=== PATIENT | female | born 1980 | race Caucasian/White ===

== ENCOUNTER 2016-08-09 14:57 | Emergency (ER) | payer MEDICARE ==
[2016-08-09 15:27] LABS: Basophils % (Auto) 0.1 % (0.0-1.8); Hematocrit 44.9 % (30.3-42.9); Hemoglobin 14.5 gm/dl (10.1-14.3); Mean Corpuscular HGB Conc 32 % (30-34); Mean Corpuscular Hemoglobin 30 pg (28-32); Mean Corpuscular Volume 92 fl (79-97); Platelet Count 226 K/mm3 (140-440); Red Cell Distribution Width 16.6 % (13.2-15.2); White Blood Count 7.5 K/mm3 (4.5-11.0)
[2016-08-09 15:49] LABS: Alanine Aminotransferase 51 units/L (7-56); Albumin 4.2 g/dL (3.9-5); Albumin/Globulin Ratio 1.3 %; Alkaline Phosphatase 94 units/L (35-129); Anion Gap 18 mmol/L; Blood Urea Nitrogen 12 mg/dL (7-17); Calcium 9.1 mg/dL (8.4-10.2); Carbon Dioxide 25 mmol/L (22-30); Chloride 95.1 mmol/L (98-107); Glucose 358 mg/dL (65-100); Lipase 29 units/L (13-60); Potassium 3.8 mmol/L (3.6-5.0); Sodium 134 mmol/L (137-145); Total Protein 7.5 g/dL (6.3-8.2)
[2016-08-09 16:21] LABS: Bilirubin,Urine NEG (Negative); Blood,Urine MOD (Negative); Ketones,Urine NEG (Negative); Leukocyte Esterase,Urine TR (Negative); Mucus,Urine FEW /HPF; Nitrite,Urine NEG (Negative); Protein,Urine <15 mg/dL mg/dL (Negative); Urobilinogen,Urine < 2.0 mg/dL (<2.0)
[2016-08-09] MEDS ORDERED: TORADOL IV ONE (21:12)
[2016-08-09] MEDS ORDERED: ZOFRAN IV ONE (21:12)
[2016-08-09] MEDS ORDERED: NACL 0.9% 1000 ML 1,000 ML IV ONE (21:12)
[2016-08-09] MEDS ORDERED: DILAUDID IV ONE (21:12)
--- NOTE | 2016-08-09 21:15 | Emergency Department Report ---
ED General Adult HPI - General Chief complaint: Abdominal Pain Stated complaint: ABD PAIN Time Seen by Provider: 08/09/16 20:56 Source: patient, RN notes reviewed, old records reviewed Mode of arrival: Ambulatory Limitations: No Limitations - History of Present Illness Initial comments: This is a 36-year-old female. She is previously unknown to me. Patient reports a past medical history of HIV. She does not know her CD4 count. She does not know her viral load. She denies a history of AIDS defining conditions. Her HIV doctor is Dr. Pedro Ponce. The patient has a logistics system engineer by the name of Dr. Chan Tillman The patient indicates that she recently had a partial hysterectomy, in March , a bilateral salpingectomy, a right nephrectomy and cystectomy, left partial cystectomy of the ovary. Patient presents to the ER complaining of abdominal pain. Also admit to intermittent dysuria. Patient missed to mild nausea. No vomiting. No chest pain or shortness of breath. No diarrhea. No vaginal discharge. Abdominal pain is sharp and achy. It has been present intermittently since her surgery. It has gotten worse. Patient was found to be tender in her lower abdominal region. Patient had a CT scan performed today, which demonstrated no focal bowel abnormalities, a normal-appearing appendix, a normal-appearing left adnexa, and an elongated fluid distended tubular structure noted on the right which appears to represent a hydrosalpinx as well as additional cystic change seen adjacent to the fallopian tube, suggesting either ovarian cyst or paraovarian cyst. Neither of these findings were noted on a prior CT scan performed in 2016. Patient also found to have prior cholecystectomy. A transvaginal ultrasound demonstrated no evidence of torsion, a right ovarian in paraovarian lesion is noted again is 7.3 cm, and fluid is noted to be around the right ovary and right adnexa. The case was discussed with her private logistics system engineer, Dr. Tillman. He recommended initiation of doxycycline, pain medication, further instructed me that the patient fell to follow up in his office last month, but stated the patient could follow-up with him at any point in the next week. The patient was observed in the ER for a prolonged. Of time, her tachycardia resolved and she was noted to be tolerating liquid feeds. The patient was counseled to follow up with her outpatient primary care doctor., -: Gradual Location: abdomen, pelvis, genitals Quality: aching Consistency: intermittent Improves with: rest Worsens with: movement Associated Symptoms: denies: confusion, chest pain, cough, diaphoresis, fever/ chills, headaches, loss of appetite, malaise, shortness of breath, syncope, weakness - Related Data Home Medications Medication Instructions Recorded Confirmed Last Taken ALPRAZolam [Xanax] 0.25 mg PO HS 04/13/13 03/08/16 07/10/15 Atorvastatin [Lipitor] 40 mg PO HS 04/13/13 03/08/16 07/10/15 Gabapentin [Gralise] 800 mg PO TID 04/13/13 03/08/16 07/10/15 Lisinopril [Zestril TAB] 10 mg PO DAILY 04/13/13 03/08/16 07/10/15 Insulin Pump/Infus. Set/Meter 1 each MC QDAY 02/16/14 03/08/16 07/07/15 [Accu-Chek Combo System] Citalopram [celeXA] 10 mg PO QDAY 08/10/14 03/08/16 07/10/15 Abacavir/Dolutegravir/Lamivudi 1 each PO DAILY 07/10/15 03/08/16 07/10/15 [Triumeq Tablet] Nortriptyline [Pamelor] 50 mg PO QDAY 07/10/15 03/08/16 07/10/15 Previous Rx's Medication Instructions Recorded Last Taken Type Diclofenac Sodium 75 mg PO BID #30 tablet. 03/08/16 Unknown Rx Doxycycline [Vibramycin] 100 mg PO Q12HR #28 capsule 08/10/16 Unknown Rx Ketorolac [Toradol] 10 mg PO Q6H PRN #20 tablet 08/10/16 Unknown Rx Ondansetron [Zofran Odt] 4 mg PO QID PRN #20 tab.rapdis 08/10/16 Unknown Rx oxyCODONE [Roxicodone] 5 mg PO Q6HR PRN #15 tablet 08/10/16 Unknown Rx Allergies Allergy/AdvReac Type Severity Reaction Status Date / Time iodine Allergy Swelling Verified 03/17/15 23:12 Penicillins Allergy Rash Verified 03/17/15 23:12 seafood Allergy Rash Uncoded 12/12/15 23:12 ED Review of Systems ROS: Stated complaint: ABD PAIN Other details as noted in HPI Constitutional: denies: fever Eyes: denies: vision change ENT: denies: epistaxis Respiratory: denies: cough Cardiovascular: denies: chest pain Gastrointestinal: abdominal pain Genitourinary: dysuria Musculoskeletal: denies: back pain Skin: denies: lesions Neurological: denies: weakness Psychiatric: denies: anxiety ED Past Medical Hx - Past Medical History Previous Medical History?: Yes Hx Hypertension: Yes Hx Diabetes: Yes Hx Psychiatric Treatment: Yes (anxiety depression) Hx HIV: Yes Additional medical history: HIGH CHOLESTEROL. Recurrent ovarian cysts - Surgical History Past Surgical History?: Yes Hx Cholecystectomy: Yes Additional Surgical History: d&c x1, insulin pump placement, Partial hysterectomy - Social History Smoking Status: Current Every Day Smoker Substance Use Type: Prescribed - Medications Home Medications: Home Medications Medication Instructions Recorded Confirmed Last Taken Type ALPRAZolam [Xanax] 0.25 mg PO HS 04/13/13 03/08/16 07/10/15 History Atorvastatin [Lipitor] 40 mg PO HS 04/13/13 03/08/16 07/10/15 History Gabapentin [Gralise] 800 mg PO TID 04/13/13 03/08/16 07/10/15 History Lisinopril [Zestril TAB] 10 mg PO DAILY 04/13/13 03/08/16 07/10/15 History Insulin Pump/Infus. Set/Meter 1 each MC QDAY 02/16/14 03/08/16 07/07/15 History [Accu-Chek Combo System] Citalopram [celeXA] 10 mg PO QDAY 08/10/14 03/08/16 07/10/15 History Abacavir/Dolutegravir/Lamivudi 1 each PO DAILY 07/10/15 03/08/16 07/10/15 History [Triumeq Tablet] Nortriptyline [Pamelor] 50 mg PO QDAY 07/10/15 03/08/16 07/10/15 History Diclofenac Sodium 75 mg PO BID #30 tablet. 03/08/16 Unknown Rx Doxycycline [Vibramycin] 100 mg PO Q12HR #28 capsule 08/10/16 Unknown Rx Ketorolac [Toradol] 10 mg PO Q6H PRN #20 tablet 08/10/16 Unknown Rx Ondansetron [Zofran Odt] 4 mg PO QID PRN #20 tab.rapdis 08/10/16 Unknown Rx oxyCODONE [Roxicodone] 5 mg PO Q6HR PRN #15 tablet 08/10/16 Unknown Rx ED Physical Exam - General Limitations: No Limitations General appearance: alert, in no apparent distress - Head Head exam: Present: atraumatic, normocephalic - Eye Eye exam: Present: normal appearance, EOMI. Absent: nystagmus - ENT ENT exam: Present: normal exam, normal orophraynx, mucous membranes moist, normal external ear exam - Neck Neck exam: Present: normal inspection, full ROM. Absent: tenderness, meningismus - Respiratory Respiratory exam: Present: normal lung sounds bilaterally. Absent: respiratory distress, wheezes, rales, rhonchi, stridor, chest wall tenderness - Cardiovascular Cardiovascular Exam: Present: normal rhythm, tachycardia, normal heart sounds. Absent: systolic murmur, diastolic murmur, rubs, gallop - GI/Abdominal GI/Abdominal exam: Present: soft, tenderness, normal bowel sounds, other (mild lower abdominal tenderness, no rebound, guarding or peritoneal signs). Absent: distended, guarding, rebound, rigid, pulsatile mass - External exam: Present: normal external exam Speculum exam: Present: normal speculum exam Bi-manual exam: Present: normal bi-manual exam, other (escorted by JENNIFER FERRELL) . Absent: cervical motion tendernes, adnexal tenderness, adnexal mass - Extremities Exam Extremities exam: Present: normal inspection, full ROM, normal capillary refill. Absent: tenderness, pedal edema, joint swelling, calf tenderness - Back Exam Back exam: Present: normal inspection, full ROM. Absent: tenderness, CVA tenderness (R), CVA tenderness (L), muscle spasm, paraspinal tenderness, vertebral tenderness - Neurological Exam Neurological exam: Present: alert, oriented X3, normal gait, other (Extraocular movements intact. Tongue midline. No facial droop. Facial sensation intact to light touch in the V1, V2, V3 distribution bilaterally. 5 and 5 strength in 4 extremities.. Sensation is intact to light touch in 4 extremities.). Absent : motor sensory deficit - Psychiatric Psychiatric exam: Present: normal affect, normal mood - Skin Skin exam: Present: warm, dry, intact, normal color. Absent: rash ED Course Vital Signs 08/09/16 08/09/16 08/09/16 15:07 23:09 23:19 Temperature 98.6 F 98 F Pulse Rate 107 H 92 H Respiratory 20 16 16 Rate Blood Pressure 143/88 Blood Pressure 130/79 [Left] O2 Sat by Pulse 100 98 100 Oximetry 08/10/16 00:50 Temperature Pulse Rate 55 L Respiratory 16 Rate Blood Pressure Blood Pressure 113/61 [Left] O2 Sat by Pulse 99 Oximetry ED Medical Decision Making - Lab Data Result diagrams: 08/09/16 15:15 08/09/16 15:15 Vital Signs 08/09/16 08/09/16 08/09/16 15:07 23:09 23:19 Temperature 98.6 F 98 F Pulse Rate 107 H 92 H Respiratory 20 16 16 Rate Blood Pressure 143/88 Blood Pressure 130/79 [Left] O2 Sat by Pulse 100 98 100 Oximetry 08/10/16 08/10/16 00:50 00:55 Temperature Pulse Rate 91 H 57 L Respiratory 16 16 Rate Blood Pressure Blood Pressure 127/76 113/61 [Left] O2 Sat by Pulse 99 99 Oximetry Lab Results 08/09/16 08/09/16 08/09/16 Range/Units 15:10 15:15 15:15 WBC 7.5 (4.5-11.0) K/mm3 RBC 4.90 (3.65-5.03) M/mm3 Hgb 14.5 H (10.1-14.3) gm/dl Hct 44.9 H (30.3-42.9) % MCV 92 (79-97) fl MCH 30 (28-32) pg MCHC 32 (30-34) % RDW 16.6 H (13.2-15.2) % Plt Count 226 (140-440) K/mm3 Lymph % (Auto) 36.5 H (13.4-35.0) % Darke % (Auto) 4.7 (0.0-7.3) % Eos % (Auto) 1.0 (0.0-4.3) % Baso % (Auto) 0.1 (0.0-1.8) % Lymph # 2.7 (1.2-5.4) K/mm3 Darke # 0.4 (0.0-0.8) K/mm3 Eos # 0.1 (0.0-0.4) K/mm3 Baso # 0.0 (0.0-0.1) K/mm3 Seg Neutrophils % 57.7 (40.0-70.0) % Seg Neutrophils # 4.3 (1.8-7.7) K/mm3 Sodium 134 L (137-145) mmol/L Potassium 3.8 (3.6-5.0) mmol/L Chloride 95.1 L (98-107) mmol/L Carbon Dioxide 25 (22-30) mmol/L Anion Gap 18 mmol/L BUN 12 (7-17) mg/dL Creatinine 0.6 L (0.7-1.2) mg/dL Estimated GFR > 60 ml/min BUN/Creatinine Ratio 20.00 % Glucose 358 H (65-100) mg/dL POC Glucose 326 H (70-105) Calcium 9.1 (8.4-10.2) mg/dL Total Bilirubin 0.30 (0.1-1.2) mg/dL AST 31 (5-40) units/L ALT 51 (7-56) units/L Alkaline Phosphatase 94 (35-129) units/L Total Protein 7.5 (6.3-8.2) g/dL Albumin 4.2 (3.9-5) g/dL Albumin/Globulin Ratio 1.3 % Lipase 29 (13-60) units/L Urine Color (Yellow) Urine Turbidity (Clear) Urine pH (5.0-7.0) Ur Specific [place] (1.003-1.030) Urine Protein (Negative) mg/dL Urine Glucose (UA) (Negative) mg/dL Urine Ketones (Negative) mg/dL Urine Blood (Negative) Urine Nitrite (Negative) Urine Bilirubin (Negative) Urine Urobilinogen (<2.0) mg/dL Ur Leukocyte Esterase (Negative) Urine WBC (Auto) (0.0-6.0) /HPF Urine RBC (Auto) (0.0-6.0) /HPF U Epithel Cells (Auto) (0-13.0) /HPF Urine Mucus /HPF 08/09/16 Range/Units 15:46 WBC (4.5-11.0) K/mm3 RBC (3.65-5.03) M/mm3 Hgb (10.1-14.3) gm/dl Hct (30.3-42.9) % MCV (79-97) fl MCH (28-32) pg MCHC (30-34) % RDW (13.2-15.2) % Plt Count (140-440) K/mm3 Lymph % (Auto) (13.4-35.0) % Darke % (Auto) (0.0-7.3) % Eos % (Auto) (0.0-4.3) % Baso % (Auto) (0.0-1.8) % Lymph # (1.2-5.4) K/mm3 Darke # (0.0-0.8) K/mm3 Eos # (0.0-0.4) K/mm3 Baso # (0.0-0.1) K/mm3 Seg Neutrophils % (40.0-70.0) % Seg Neutrophils # (1.8-7.7) K/mm3 Sodium (137-145) mmol/L Potassium (3.6-5.0) mmol/L Chloride (98-107) mmol/L Carbon Dioxide (22-30) mmol/L Anion Gap mmol/L BUN (7-17) mg/dL Creatinine (0.7-1.2) mg/dL Estimated GFR ml/min BUN/Creatinine Ratio % Glucose (65-100) mg/dL POC Glucose (70-105) Calcium (8.4-10.2) mg/dL Total Bilirubin (0.1-1.2) mg/dL AST (5-40) units/L ALT (7-56) units/L Alkaline Phosphatase (35-129) units/L Total Protein (6.3-8.2) g/dL Albumin (3.9-5) g/dL Albumin/Globulin Ratio % Lipase (13-60) units/L Urine Color Yellow (Yellow) Urine Turbidity Clear (Clear) Urine pH 5.0 (5.0-7.0) Ur Specific [place] 1.034 H (1.003-1.030) Urine Protein <15 mg/dl (Negative) mg/dL Urine Glucose (UA) 150 (Negative) mg/dL Urine Ketones Neg (Negative) mg/dL Urine Blood Mod (Negative) Urine Nitrite Neg (Negative) Urine Bilirubin Neg (Negative) Urine Urobilinogen < 2.0 (<2.0) mg/dL Ur Leukocyte Esterase Tr (Negative) Urine WBC (Auto) 39.0 H (0.0-6.0) /HPF Urine RBC (Auto) 5.0 (0.0-6.0) /HPF U Epithel Cells (Auto) 5.0 (0-13.0) /HPF Urine Mucus Few /HPF - Radiology Data Radiology results: report reviewed, image reviewed Critical care attestation.: If time is entered above; I have spent that time in minutes in the direct care of this critically ill patient, excluding procedure time. ED Disposition Clinical Impression: Pelvic pain, Ovarian cyst Disposition: DISCHARGED TO HOME OR SELFCARE Is pt being admited?: No Does the pt Need Aspirin: No Condition: Good Instructions: Abdominal Pain (ED) Additional Instructions: Cultures were sent today, results will be available in the next 3-5 days. Please have your primary care doctor or logistics system engineer specialist contact the medical records department to obtain culture results. CT scan and pelvic ultrasound demonstrated nonspecific ovarian cyst, possible fluid in the right fallopian tube. Take the pain medication, nausea medication, antibiotics as directed. Follow-up with your primary care ASSOCIATE PROFESSOR OF CHEMISTRY doctor within the next week. Return to the ER right away with new pain, worsened pain, migration of pain, fevers or chills, intractable nausea or vomiting, inability to tolerate liquid feeds. Not following up in a timely fashion with her ASSOCIATE PROFESSOR OF CHEMISTRY doctor may resultant undiagnosed tumor/cancer/malignancy. Layne Valdivia MD 5.0 1 [employer] review Doctor in [place], [place] Address: [address] [place] [address] [address], [place] [address] [address] [facility] [address] [place] [address] Get Directions Referrals: JENARO SARMIENTO MD [Primary Care Provider] - 3-5 Days
[2016-08-09] MEDS ORDERED: BENADRYL ONE (22:36)
--- NOTE | 2016-08-09 23:04 | Ultrasound Report ---
FINAL REPORT EXAM: US TRANSVAGINAL HISTORY: abd pain ? cyst vs torsion COMPARISONS: Ultrasound 07/10/2015, CT 07/10/2015 FINDINGS: Transvaginal grayscale, color and spectral Doppler ultrasound evaluation of the pelvis Uterus is anteverted and measures 10 x 3.5 x 5 cm. Myometrial echotexture is within normal limits. Endometrial thickness is approximately 7 millimeters. There is fluid surrounding the region of the right ovary/right adnexa. The right ovary measures approximately 3 x 3.5 x 2.5 cm. Fluid surrounds the right ovary, with overall bulk dimension including the right ovary 7.3 x 6.2 x 6.2 cm. Spectral Doppler waveforms are within normal limits in both ovaries. The left ovary measures 2.1 x 1.8 x 1.8 cm and demonstrates normal echotexture. IMPRESSION: There is enlargement of the right ovary compared to the left. Fluid surrounds the right ovary/right adnexa. Short interval follow-up in 6-10 weeks is suggested. No specific finding of ovarian torsion. Spectral Doppler waveforms are within normal limits.
--- NOTE | 2016-08-09 23:07 | Ultrasound Report ---
FINAL REPORT EXAM: US PELVIS DUPLEX DOPPLER COMP HISTORY: abd pain ? cyst vs torsion COMPARISONS: None. FINDINGS: Transabdominal grayscale and color Doppler ultrasound evaluation of the pelvis The uterus is anteverted and measures 10 x 3.5 x 5 cm. Normal uterine echotexture. Endometrium is homogeneous and measures up to 7 millimeters in thickness. A cystic lesion is present within or immediately adjacent to the right adnexa. The right ovary measures 7.3 x 6 x 6.2 cm. The left ovary measures 2.1 x 1.8 x 1.8 cm and demonstrates normal echotexture. IMPRESSION: Right ovarian/paraovarian cystic lesion measures up to 7.3 cm. Short interval sonographic follow-up recommended.
--- NOTE | 2016-08-09 23:25 | Cat Scan Report ---
FINAL REPORT PROCEDURE: CT ABDOMEN PELVIS W CON TECHNIQUE: Computerized axial tomography of the abdomen and pelvis was performed after the IV injection of iodinated nonionic contrast. HISTORY: abd pain COMPARISON: Prior CT scan abdomen and pelvis 07/10/2015 FINDINGS: Lower Lung rodríguez: No abnormality is seen. Upper Abdomen: Gallbladder is surgically absent. The liver is unremarkable. The spleen is mildly enlarged measuring 13.7 centimeters. No adrenal abnormalities are visualized. The pancreas is unremarkable. Kidneys, Ureters and Urinary bladder: There is a 2 centimeter low-density nodule in the renal cortex of the right kidney posteriorly which appears to represent a renal cortical cyst. There is additional sub centimeter low-density nodule in the lower 3rd of the right kidney and 1 in the upper 3rd of the left kidney. These are too small to characterize although they appear to represent small cyst. The kidneys, the ureters and urinary bladder otherwise are unremarkable. Retroperitoneum: Abdominal aorta appears normal. No aneurysm is seen. Nonspecific subcentimeter lymph nodes are seen in the retroperitoneum. No pathologically enlarged lymph nodes are identified. Bowel: No focal bowel abnormalities are identified. No evidence of bowel obstruction or ascites. There is no free intraperitoneal gas. Normal-appearing appendix is seen in the right lower quadrant. Reproductive organs: Uterus is unremarkable. Left adnexa shows no focal abnormality. There is an elongated fluid distended tubular structure visualized on the right which appears to represent hydrosalpinx as well as additional cystic change seen adjacent to the fallopian tube suggesting either an ovarian cyst or paraovarian cyst. Both of these findings were not visualized on the prior CT scan performed 07/10/2015.. Other: None IMPRESSION: Interval development of hydrosalpinx since prior CT scan abdomen and pelvis performed on 07/10/2015. And cystic abnormality in right adnexa. Interior Design Project Manager consultation is recommended. Prior cholecystectomy. Renal cortical cysts are suspected as described. Mild splenomegaly.
[2016-08-10] MEDS ORDERED: MORPHINE IV ONE (00:10)
[2016-08-10] MEDS ORDERED: BENADRYL IV ONE (00:14)
[2016-08-10] MEDS ORDERED: VIBRAMYCIN PO ONE (00:36)
[2016-08-10 01:27] VITALS: BP 127/76
== END 2016-08-10 01:34 | disposition home or self-care (01) ==
LOC: ED 14:57
DX: N83.209 Unspecified ovarian cyst, unspecified side (principal); I10 Essential (primary) hypertension; E11.9 Type 2 diabetes mellitus without complications; F32.9 Major depressive disorder, single episode, unspecified; F41.9 Anxiety disorder, unspecified; E78.00 Pure hypercholesterolemia, unspecified; F17.200 Nicotine dependence, unspecified, uncomplicated; Z90.711 Acquired absence of uterus with remaining cervical stump; Z90.49 Acquired absence of other specified parts of digestive tract; Z79.4 Long term (current) use of insulin; Z88.0 Allergy status to penicillin; Z91.013 Allergy to seafood
CPT/HCPCS: 36415; 74177; 76830; 80053; 81001; 82962; 83690; 85025; 87210; 87591; 93975; 96361; 96374; 96375; 99285; J1170; J1200; J1885; J2270; J2405; J7030; Q9967

== ENCOUNTER 2016-10-12 09:22 | Emergency (ER) | payer MEDICARE ==
[2016-10-12 10:26] LABS: Alanine Aminotransferase 24 units/L (7-56); Albumin 3.6 g/dL (3.9-5); Albumin/Globulin Ratio 0.9 %; Alkaline Phosphatase 106 units/L (35-129); Anion Gap 18 mmol/L; BUN/Creatinine Ratio 11.42; Blood Urea Nitrogen 8 mg/dL (7-17); Calcium 8.9 mg/dL (8.4-10.2); Carbon Dioxide 26 mmol/L (22-30); Chloride 96.8 mmol/L (98-107); Lipase 33 units/L (13-60); Potassium 4.3 mmol/L (3.6-5.0); Sodium 136 mmol/L (137-145); Total Protein 7.7 g/dL (6.3-8.2)
[2016-10-12 10:30] LABS: Basophils % (Auto) 0.1 % (0.0-1.8); Eosinophils % (Auto) 2.3 % (0.0-4.3); Hematocrit 36.4 % (30.3-42.9); Mean Corpuscular HGB Conc 33 % (30-34); Mean Corpuscular Hemoglobin 31 pg (28-32); Mean Corpuscular Volume 93 fl (79-97); Platelet Count 345 K/mm3 (140-440); Red Blood Count 3.93 M/mm3 (3.65-5.03); Red Cell Distribution Width 14.4 % (13.2-15.2); White Blood Count 8.8 K/mm3 (4.5-11.0)
[2016-10-12 10:34] LABS: Glucose 523 mg/dL (65-100)
[2016-10-12 10:44] LABS: Bilirubin,Urine NEG (Negative); Blood,Urine SM (Negative); Ketones,Urine NEG (Negative); Leukocyte Esterase,Urine MOD (Negative); Mucus,Urine FEW /HPF; Nitrite,Urine NEG (Negative); Protein,Urine <15 mg/dL mg/dL (Negative); Urobilinogen,Urine < 2.0 mg/dL (<2.0)
[2016-10-12] MEDS ORDERED: NACL 0.9% 1000 ML 1,000 ML IV ONE (14:21)
[2016-10-12] MEDS ORDERED: DILAUDID IV ONE (14:21)
[2016-10-12] MEDS ORDERED: ROCEPHIN/NS 1 GM/50 ML 1 GM/50 ML BAG IV ONE (14:22)
[2016-10-12] MEDS ORDERED: CLEOCIN 900 MG/50 mL 900 MG/50 ML BAG IV ONE (14:22)
[2016-10-12] MEDS ORDERED: NACL ONE (14:46)
--- NOTE | 2016-10-12 15:06 | Emergency Department Report ---
ED Abdominal Pain HPI - General Chief Complaint: Abdominal Pain Stated Complaint: ABD PAIN Time Seen by Provider: 10/12/16 14:01 Source: patient Mode of arrival: Ambulatory Limitations: No Limitations - History of Present Illness Initial Comments: 36-year-old female with a past medical history of insulin dependent diabetes, HIV, hypertension, elevated cholesterol, anxiety, and depression presents to the hospital complains of postoperative abdominal pain and malodorous discharge. Patient had a total hysterectomy 09/26/[address] Melendez at [facility] for ovarian mass suspicious for cancer. For the past 2 weeks patient has had malodorous bloody vaginal discharge. Patient also complains of lower abdominal pain 1 week. Pain is sharp, constant, worse with palpation rated 10/10 intensity. No alleviating factors. Patient is not currently on any pain medications. She just followed up on October 06 to have her matilda removed. She reported her complaints to the nurse practitioner at the time. She was told at the clinic did not prescribe narcotic pain medication. Patient is not currently on antibiotics. Patient also expresses concern that there is a hole with yellow bloody drainage at the upper part of her surgical wound. Patient presented here because she does not have a car/ride to go to the hospital where her doctor is affiliated. Patient presents with elevated glucose and states that she has discontinued her insulin pump since receiving surgery and now she says self a subcutaneous insulin doses. Severity scale (0 -10): 10 - Related Data Home Medications Medication Instructions Recorded Confirmed Last Taken ALPRAZolam [Xanax] 0.25 mg PO HS 04/13/13 03/08/16 07/10/15 Atorvastatin [Lipitor] 40 mg PO HS 04/13/13 03/08/16 07/10/15 Gabapentin [Gralise] 800 mg PO TID 04/13/13 03/08/16 07/10/15 Lisinopril [Zestril TAB] 10 mg PO DAILY 04/13/13 03/08/16 07/10/15 Insulin Pump/Infus. Set/Meter 1 each MC QDAY 02/16/14 03/08/16 07/07/15 [Accu-Chek Combo System] Citalopram [celeXA] 10 mg PO QDAY 08/10/14 03/08/16 07/10/15 Abacavir/Dolutegravir/Lamivudi 1 each PO DAILY 07/10/15 03/08/16 07/10/15 [Triumeq Tablet] Nortriptyline [Pamelor] 50 mg PO QDAY 07/10/15 03/08/16 07/10/15 Previous Rx's Medication Instructions Recorded Last Taken Type Diclofenac Sodium 75 mg PO BID #30 tablet. 03/08/16 Unknown Rx Doxycycline [Vibramycin] 100 mg PO Q12HR #28 capsule 08/10/16 Unknown Rx Ketorolac [Toradol] 10 mg PO Q6H PRN #20 tablet 08/10/16 Unknown Rx Ondansetron [Zofran Odt] 4 mg PO QID PRN #20 tab.rapdis 08/10/16 Unknown Rx oxyCODONE [Roxicodone] 5 mg PO Q6HR PRN #15 tablet 08/10/16 Unknown Rx HYDROcodone/APAP 5-325 [[place] 1 each PO Q6HR PRN #20 tablet 10/12/16 Unknown Rx 5/325] Allergies Allergy/AdvReac Type Severity Reaction Status Date / Time iodine Allergy Swelling Verified 10/12/16 09:40 seafood Allergy Rash Uncoded 10/12/16 09:40 ED Review of Systems ROS: Stated complaint: ABD PAIN Other details as noted in HPI Comment: All other systems reviewed and negative Other: Constitutional: No fevers chills Eyes: No eye pain visual changes or discharge ENT: No ear pain or throat pain Neck: Denies pain Respiratory: Denies cough wheezing shortness of breath Cardiovascular: Denies chest pain, palpitations, syncope GI: as per hpi : Denies dysuria Musculoskeletal: Denies back pain, joint swelling Skin: as per hpi Neurologic: Denies headache, numbness, weakness Psychiatric: Denies suicidal ideation, hallucinations ED Past Medical Hx - Past Medical History Hx Hypertension: Yes Hx Diabetes: Yes Hx Psychiatric Treatment: Yes (anxiety depression) Hx HIV: Yes Additional medical history: HIGH CHOLESTEROL. Recurrent ovarian cysts - Surgical History Hx Cholecystectomy: Yes Additional Surgical History: d&c x1, insulin pump placement, Partial hysterectomy. TOTAL HYSTERECTOMY - Social History Smoking Status: Current Every Day Smoker Substance Use Type: Alcohol - Medications Home Medications: Home Medications Medication Instructions Recorded Confirmed Last Taken Type ALPRAZolam [Xanax] 0.25 mg PO HS 04/13/13 03/08/1616 History Atorvastatin [Lipitor] 40 mg PO HS 04/13/13 03/08/16 07/10/15 History Gabapentin [Gralise] 800 mg PO TID 04/13/13 03/08/16 07/10/15 History Lisinopril [Zestril TAB] 10 mg PO DAILY 04/13/13 03/08/16 07/10/15 History Insulin Pump/Infus. Set/Meter 1 each MC QDAY 02/16/14 03/08/16 07/07/15 History [Accu-Chek Combo System] Citalopram [celeXA] 10 mg PO QDAY 08/10/14 03/08/16 07/10/15 History Abacavir/Dolutegravir/Lamivudi 1 each PO DAILY 07/10/15 03/08/16 07/10/15 History [Triumeq Tablet] Nortriptyline [Pamelor] 50 mg PO QDAY 07/10/15 03/08/16 07/10/15 History Diclofenac Sodium 75 mg PO BID #30 tablet.dr 03/08/16 Unknown Rx Doxycycline [Vibramycin] 100 mg PO Q12HR #28 capsule 08/10/16 Unknown Rx Ketorolac [Toradol] 10 mg PO Q6H PRN #20 tablet 08/10/16 Unknown Rx Ondansetron [Zofran Odt] 4 mg PO QID PRN #20 tab.rapdis 08/10/16 Unknown Rx oxyCODONE [Roxicodone] 5 mg PO Q6HR PRN #15 tablet 08/10/16 Unknown Rx HYDROcodone/APAP 5-325 [[place] 1 each PO Q6HR PRN #20 tablet 10/12/16 Unknown Rx 5/325] ED Physical Exam - General Limitations: No Limitations - Other Other exam information: General: No limitations, patient is alert in no acute distress Head exam: Atraumatic, normocephalic Eyes exam: Normal appearance, pupils equal reactive to light, extraocular movements intact ENT: Moist mucous membrane, normal oropharynx Neck exam: Normal inspection, full range of motion, no meningismus nontender Respiratory exam: Clear to auscultation bilateral, no wheezes, rales, crackles Cardiovascular: Normal rate and rhythm, normal heart sounds Abdomen: Soft, nondistended, midline vertical surgical scar. Some very mild wound separation without complete dehiscence to the superior part of the wound. No active drainage. No surrounding erythema or warmth. Tenderness throughout lower abdomen no rebound or guarding Extremity: Full range of motion normal inspection no deformity Back: Normal Inspection, full range of motion, no tenderness Neurologic: Alert, oriented x3, cranial nerves intact, no motor or sensory deficit Psychiatric: normal affect, normal mood Skin: Warm, dry, intact ED Course Vital Signs 10/12/16 10/12/16 10/12/16 09:42 14:02 14:10 Temperature 98.6 F 99.1 F Pulse Rate 99 H 94 H Respiratory 17 18 18 Rate Blood Pressure 148/90 Blood Pressure 139/72 [Left] O2 Sat by Pulse 100 97 97 Oximetry 10/12/16 10/12/16 10/12/16 14:40 15:10 16:10 Temperature Pulse Rate 97 H Respiratory 18 18 18 Rate Blood Pressure Blood Pressure 156/86 [Left] O2 Sat by Pulse 99 Oximetry 10/12/16 17:35 Temperature Pulse Rate 88 Respiratory 18 Rate Blood Pressure Blood Pressure 138/79 [Left] O2 Sat by Pulse 98 Oximetry - Reevaluation(s) Reevaluation #1: 10/12/16 18:34 Pain initially improved the patient requested additional morphine prior to discharge. Glucose improved with insulin and normal saline. Patient also received clindamycin and Rocephin in the ED. - Consultations Consultation #1: 10/12/16 18:31 Case d/w Dr Darling spinner continuous MD for Dr Melendez. We discussed lab results, urine results, CT scan. Although patient CT does show fluid collections there are certain procedures done during the surgery that may look like an abscess on CT. This patient does not have a fever or elevated white count she does not recommend antibiotics to be continued at this time. Although the urine does have mild wbc elevation patient does not have nitrates or urinary symptoms. She does not recommend antibiotics for UTI is her first wait for culture results. Recommend medications for pain and follow-up in the clinic tomorrow for reassessment by her [facility] doctor. I will include a copy of the CT report and lab findings to take to her doctor tomorrow. ED Medical Decision Making - Lab Data Result diagrams: 10/12/16 09:54 10/12/16 09:54 Lab Results 10/12/16 10/12/16 10/12/16 Range/Units 09:54 09:54 10:10 WBC 8.8 (4.5-11.0) K/mm3 RBC 3.93 (3.65-5.03) M/mm3 Hgb 12.0 (10.1-14.3) gm/dl Hct 36.4 (30.3-42.9) % MCV 93 (79-97) fl MCH 31 (28-32) pg MCHC 33 (30-34) % RDW 14.4 (13.2-15.2) % Plt Count 345 (140-440) K/mm3 Lymph % (Auto) 25.0 (13.4-35.0) % [place] % (Auto) 6.1 (0.0-7.3) % Eos % (Auto) 2.3 (0.0-4.3) % Baso % (Auto) 0.1 (0.0-1.8) % Lymph # 2.2 (1.2-5.4) K/mm3 [place] # 0.5 (0.0-0.8) K/mm3 Eos # 0.2 (0.0-0.4) K/mm3 Baso # 0.0 (0.0-0.1) K/mm3 Seg Neutrophils % 66.5 (40.0-70.0) % Seg Neutrophils # 5.8 (1.8-7.7) K/mm3 Sodium 136 L (137-145) mmol/L Potassium 4.3 (3.6-5.0) mmol/L Chloride 96.8 L (98-107) mmol/L Carbon Dioxide 26 (22-30) mmol/L Anion Gap 18 mmol/L BUN 8 (7-17) mg/dL Creatinine 0.7 (0.7-1.2) mg/dL Estimated GFR > 60 ml/min BUN/Creatinine Ratio 11.42 % Glucose 523 H* (65-100) mg/dL Calcium 8.9 (8.4-10.2) mg/dL Total Bilirubin 0.20 (0.1-1.2) mg/dL AST 19 (5-40) units/L ALT 24 (7-56) units/L Alkaline Phosphatase 106 (35-129) units/L Total Protein 7.7 (6.3-8.2) g/dL Albumin 3.6 L (3.9-5) g/dL Albumin/Globulin Ratio 0.9 % Lipase 33 (13-60) units/L Urine Color Straw (Yellow) Urine Turbidity Clear (Clear) Urine pH 5.0 (5.0-7.0) Ur Specific [place] 1.035 H (1.003-1.030) Urine Protein <15 mg/dl (Negative) mg/dL Urine Glucose (UA) >=500 (Negative) mg/dL Urine Ketones Neg (Negative) mg/dL Urine Blood Sm (Negative) Urine Nitrite Neg (Negative) Urine Bilirubin Neg (Negative) Urine Urobilinogen < 2.0 (<2.0) mg/dL Ur Leukocyte Esterase Mod (Negative) Urine WBC (Auto) 22.0 H (0.0-6.0) /HPF Urine RBC (Auto) 2.0 (0.0-6.0) /HPF U Epithel Cells (Auto) 2.0 (0-13.0) /HPF Urine Mucus Few /HPF - Radiology Data Radiology results: report reviewed CT abdomen and pelvis IV contrast: Status post hysterectomy. Fluid and gas collection seen superior aspect of the vagina suspicious for an abscess. There is adjacent inflammatory changes. Fluid collection seen in the posterior aspect of the middle incision sites site overlying the pelvis suggesting a hematoma, seroma, or abscess. There are also a few bubbles of gas seen in the soft tissues within the incision just below the cutaneous layer which may represent a small developing abscess. - Medical Decision Making Plan to discharge the patient home as per direction of her surgeon. The patient has various fluid collections identified on CT she does not have an elevated white count or fever. Antibiotics are not recommended at this time. Patient be treated with pain medication, given a copy of her reports and encouraged to follow with her surgeon tomorrow. During ED stay patient developed itching after receiving Dilaudid. She was given Benadryl. She was given morphine without allergic reaction. Patient received a second dose of morphine and developed itching once again. No airway symptoms or rash. Patient sugar still in the 300s. Additional insulin ordered. Patient is ready to go home and does not want to wait for glucose reduction. No signs of DKA at this time. - Differential Diagnosis wound dehiscence, wound infection, postop infection, postoperative pain Critical Care Time: No Critical care attestation.: If time is entered above; I have spent that time in minutes in the direct care of this critically ill patient, excluding procedure time. ED Disposition Clinical Impression: S/P hysterectomy with oophorectomy, Post-operative pain, Intra-abdominal fluid collection Disposition: TO HOME OR SELFCARE Is pt being admited?: No Does the pt Need Aspirin: No Condition: Stable Instructions: Abdominal Pain (ED), Wound Dehiscence (ED) Additional Instructions: It is very important that you follow up with your surgeon in the clinic tomorrow. Take a copy of your results and CAT scan provided. Take medication as needed for pain. Return if symptoms worsen prior to follow. Prescriptions: HYDROcodone/APAP 5-325 [[place] 5/325] 1 each PO Q6HR PRN #20 tablet PRN Reason: Pain Referrals: MD Al [Other] - 10/13/16 Time of Disposition: 18:44
[2016-10-12] MEDS ORDERED: BENADRYL IV ONE ×2 (15:25→18:47)
[2016-10-12] MEDS ORDERED: MORPHINE IV ONE ×2 (15:45→18:10)
--- NOTE | 2016-10-12 16:44 | Cat Scan Report ---
FINAL REPORT PROCEDURE: CT ABDOMEN PELVIS W CON TECHNIQUE: Computerized axial tomography of the abdomen and pelvis was performed after the IV injection of iodinated nonionic contrast. HISTORY: pain and malodorous d/c s/p hysterectomy COMPARISON: Prior CT scan abdomen and pelvis 08/09/2016 FINDINGS: Lower Lung rodríguez: Clear. Upper Abdomen: Gallbladder is surgically absent. The intrahepatic ducts are not distended. The liver showed no focal abnormalities. The spleen is mildly enlarged otherwise is unremarkable. The adrenal glands and the pancreas show no abnormalities. Kidneys, Ureters and Urinary bladder: There is a 2.1 centimeter low-density nodule in the renal cortex of the upper 3rd of the right kidney medially. A subcentimeter low-density nodules also seen in the lower 3rd of the renal cortex of the right kidney and 1 in the upper 3rd of the renal cortex of the left kidney. These appear to represent renal cortical cyst. The kidneys, the ureters and urinary bladder otherwise are unremarkable. Retroperitoneum: Abdominal aorta appears normal. No aneurysm is visualized. Nonspecific subcentimeter lymph nodes are seen in the retroperitoneum. No pathologically enlarged lymph nodes are identified. Bowel: No focal bowel abnormalities are identified. No evidence of bowel obstruction ascites or free intraperitoneal gas. Normal-appearing appendix is seen in the right lower quadrant directed medially. There are postsurgical changes in the anterior wall the pelvis in the midline. A prior incision site is visualized. A few bubbles of gas appear to be present in the subcutaneous soft tissues anterior aspect of the incision site on image 128 series 3. This measures approximately 6.7 by 16.2 millimeters. In the mid pelvis there appears to be a small fluid collection in the posterior aspect of the incision extending over approximately 3.1 x 1.5 centimeters seen on image 147 series 3 suggesting a hematoma, seroma or abscess. Reproductive organs: The uterus is surgically absent. Fluid in gas collection is seen in the superior aspect of the vagina best visualized on image 172 series 3 of the axial images and image 89 series 200 of the coronal reconstructions as well as image 112 series 201 of the sagittal reconstructions. An abscess is suspected. This measures approximately 3.5 centimeter transverse, 2.9 centimeter AP and extends craniocaudal approximately 2.3 centimeter. There is inflammatory change in the adjacent mesentery. No free intraperitoneal gas is seen. No abnormal adnexal masses are identified. Other: No acute bony abnormalities are identified. IMPRESSION: Patient is status post hysterectomy. Fluid and gas collection seen superior aspect of the vagina suspicious for a an abscess. There is adjacent inflammatory changes well. Fluid collection is seen posterior aspect of the midline incision site overlying the pelvis as described suggesting a hematoma, seroma or abscess. There are also a few bubbles of gas seen in the soft tissues within the incision just below the cutaneous layer as described which may also reflect a small developing abscess. Patient is status post cholecystectomy. Mild splenomegaly. Small renal cortical cyst suspected as described.
[2016-10-12 17:36] VITALS: BP 138/79
== END 2016-10-12 19:12 | disposition home or self-care (01) ==
LOC: ED 09:22
DX: G89.18 Other acute postprocedural pain (principal); R18.8 Other ascites; I10 Essential (primary) hypertension; E11.9 Type 2 diabetes mellitus without complications; F41.9 Anxiety disorder, unspecified; F32.9 Major depressive disorder, single episode, unspecified; E78.00 Pure hypercholesterolemia, unspecified; F17.200 Nicotine dependence, unspecified, uncomplicated; Z90.710 Acquired absence of both cervix and uterus; Z79.4 Long term (current) use of insulin; Z91.013 Allergy to seafood
CPT/HCPCS: 36415; 74177; 80053; 81001; 82962; 83690; 85025; 87086; 96361; 96365; 96368; 96375; 96376; 99284; J0696; J1170; J1200; J2270; J7030; Q9967; J1815

== ENCOUNTER 2016-12-14 18:43 | Emergency (ER) | payer MEDICARE ==
[2016-12-14] MEDS ORDERED: XYLOCAINE 1%/ EPI 1:100,000 INFILTRATI NR (23:45)
[2016-12-15] MEDS ORDERED: PERCOCET 5/325 PO ONE (00:50)
[2016-12-15] MEDS ORDERED: BACTRIM DS PO ONE (00:51)
--- NOTE | 2016-12-15 01:04 | Emergency Department Report ---
ED General Adult HPI - General Chief complaint: Skin/Abscess/Foreign Body Stated complaint: ABSCESS ON BACK Time Seen by Provider: 12/14/16 23:22 Source: patient Mode of arrival: Ambulatory Limitations: No Limitations - History of Present Illness Initial comments: Patient is a 36-year-old female past medical history of diabetes who presents with back abscess. She has had abscess for the last 4 days. She says the pain is a 10 out of 10 it's a burning achy pain. The pain does not radiate anywhere. Pressure makes it worse nothing makes it better. Patient states that there has been no drainage to her back. She states that she's had abscesses like these before. Patient denies having any fever or any vomiting. Severity scale (0 -10): 7 - Related Data Home Medications Medication Instructions Recorded Confirmed Last Taken ALPRAZolam [Xanax] 0.25 mg PO HS 04/13/13 12/14/16 07/10/15 Atorvastatin [Lipitor] 40 mg PO HS 04/13/13 12/14/16 07/10/15 Gabapentin [Gralise] 800 mg PO TID 04/13/13 12/14/16 07/10/15 Lisinopril [Zestril TAB] 10 mg PO DAILY 04/13/13 12/14/16 07/10/15 Insulin Pump/Infus. Set/Meter 1 each MC QDAY 02/16/14 12/14/16 07/07/15 [Accu-Chek Combo System] Citalopram [celeXA] 10 mg PO QDAY 08/10/14 12/14/16 07/10/15 Abacavir/Dolutegravir/Lamivudi 1 each PO DAILY 07/10/15 12/14/16 07/10/15 [Triumeq Tablet] Nortriptyline [Pamelor] 50 mg PO QDAY 07/10/15 12/14/16 07/10/15 Previous Rx's Medication Instructions Recorded Last Taken Type Acetaminophen [Acetaminophen TAB] 1,000 mg PO Q6HR #30 tablet 12/15/16 Unknown Rx Ibuprofen [Motrin 400 MG tab] 400 mg PO Q8H PRN #20 tablet 12/15/16 Unknown Rx Sulfamethoxazole/Trimethoprim 1 tab PO BID #10 tab 12/15/16 Unknown Rx [Bactrim 400-80 mg] Allergies Allergy/AdvReac Type Severity Reaction Status Date / Time iodine Allergy Swelling Verified 10/12/16 09:40 seafood Allergy Rash Uncoded 10/12/16 09:40 ED Review of Systems ROS: Stated complaint: ABSCESS ON BACK Other details as noted in HPI Constitutional: denies: chills, fever Eyes: denies: eye pain, eye discharge, vision change ENT: denies: ear pain, throat pain Respiratory: denies: cough, shortness of breath, wheezing Cardiovascular: denies: chest pain, palpitations Endocrine: no symptoms reported Gastrointestinal: denies: abdominal pain, nausea, diarrhea Genitourinary: denies: urgency, dysuria, discharge Musculoskeletal: denies: back pain, joint swelling, arthralgia Skin: other (abscess ). denies: rash, lesions Neurological: denies: headache, weakness, paresthesias Psychiatric: denies: anxiety, depression Hematological/Lymphatic: denies: easy bleeding, easy bruising ED Past Medical Hx - Past Medical History Hx Hypertension: Yes Hx Diabetes: Yes Hx Psychiatric Treatment: Yes (anxiety depression) Hx HIV: Yes Additional medical history: HIGH CHOLESTEROL. Recurrent ovarian cysts - Surgical History Hx Cholecystectomy: Yes Additional Surgical History: d&c x1, insulin pump placement, Partial hysterectomy. TOTAL HYSTERECTOMY - Social History Smoking Status: Current Every Day Smoker Substance Use Type: None - Medications Home Medications: Home Medications Medication Instructions Recorded Confirmed Last Taken Type ALPRAZolam [Xanax] 0.25 mg PO HS 04/13/13 12/14/16 07/10/15 History Atorvastatin [Lipitor] 40 mg PO HS 04/13/13 12/14/16 07/10/15 History Gabapentin [Gralise] 800 mg PO TID 04/13/13 12/14/16 07/10/15 History Lisinopril [Zestril TAB] 10 mg PO DAILY 04/13/13 12/14/16 07/10/15 History Insulin Pump/Infus. Set/Meter 1 each MC QDAY 02/16/14 12/14/16 07/07/15 History [Accu-Chek Combo System] Citalopram [celeXA] 10 mg PO QDAY 08/10/14 12/14/16 07/10/15 History Abacavir/Dolutegravir/Lamivudi 1 each PO DAILY 07/10/15 12/14/16 07/10/15 History [Triumeq Tablet] Nortriptyline [Pamelor] 50 mg PO QDAY 07/10/15 12/14/16 07/10/15 History Acetaminophen [Acetaminophen TAB] 1,000 mg PO Q6HR #30 tablet 12/15/16 Unknown Rx Ibuprofen [Motrin 400 MG tab] 400 mg PO Q8H PRN #20 tablet 12/15/16 Unknown Rx Sulfamethoxazole/Trimethoprim 1 tab PO BID #10 tab 12/15/16 Unknown Rx [Bactrim 400-80 mg] ED Physical Exam - General Limitations: No Limitations General appearance: alert, in no apparent distress - Head Head exam: Present: atraumatic, normocephalic - Eye Eye exam: Present: normal appearance - ENT ENT exam: Present: mucous membranes moist - Neck Neck exam: Present: normal inspection - Respiratory Respiratory exam: Present: normal lung sounds bilaterally. Absent: respiratory distress - Cardiovascular Cardiovascular Exam: Present: regular rate, normal rhythm. Absent: systolic murmur, diastolic murmur, rubs, gallop - GI/Abdominal GI/Abdominal exam: Present: soft, normal bowel sounds - Extremities Exam Extremities exam: Present: normal inspection - Back Exam Back exam: Present: other (4x6 cm abscess with fluctuance and erythema ) - Neurological Exam Neurological exam: Present: alert, oriented X3 - Psychiatric Psychiatric exam: Present: normal affect, normal mood - Skin Skin exam: Present: dry, intact, normal color. Absent: rash ED Course Vital Signs 12/14/16 12/14/16 12/14/16 18:50 22:47 22:48 Temperature 98.8 F 98.6 F Pulse Rate 100 H 90 Respiratory 16 20 20 Rate Blood Pressure 152/97 Blood Pressure 130/73 [Left] O2 Sat by Pulse 100 99 99 Oximetry 12/15/16 12/15/16 01:04 01:05 Temperature 98.6 F Pulse Rate 88 Respiratory 20 20 Rate Blood Pressure Blood Pressure 132/78 [Left] O2 Sat by Pulse 100 Oximetry - Reevaluation(s) Reevaluation #1: 12/15/16 01:01 Patient's abscess has been incised and drained. Patient also received oral Percocet and Bactrim. She states that her pain is better. - I & D Back Type of Procedure: Complex (abscess was 4 x 6 cm abscess was probed and deloculated and irrigated with 20 mL of saline.) Site: back Blade Size: 11 I & D Procedure: betadine prep, sterile dressing applied, gauze wick placed (1/ 4 iodine gauze was packed into abscess) Progress: Lidocaine with epinepherine was used to anesthetize the skin. 8 mL of lidocaine was used and opening block around the abscess. Patient tolerated procedure with no complications. About 12 mL of bloody pus came out of the abscess. ED Medical Decision Making - Medical Decision Making Chief medical diagnosis: Abscess Differential medical diagnosis: Cellulitis, folliculitis I will incise and drain the abscess will use lidocaine also give the patient oral Percocet and oral Bactrim. Gave patient return precautions come back to the emergency department and additional verbal discharge instructions were given. Critical care attestation.: If time is entered above; I have spent that time in minutes in the direct care of this critically ill patient, excluding procedure time. ED Disposition Clinical Impression: Abscess of back Cellulitis Qualifiers: Site of cellulitis: trunk Site of cellulitis of trunk: back Qualified Code(s): L03.312 - Cellulitis of back [any part except buttock] Disposition: DC-01 TO HOME OR SELFCARE Is pt being admited?: No Does the pt Need Aspirin: No Condition: Stable Instructions: Abscess Incision and Drainage (ED), Abscess (ED) Prescriptions: Acetaminophen [Acetaminophen TAB] 1,000 mg PO Q6HR #30 tablet Ibuprofen [Motrin 400 MG tab] 400 mg PO Q8H PRN #20 tablet PRN Reason: Pain Sulfamethoxazole/Trimethoprim [Bactrim 400-80 mg] 1 tab PO BID #10 tab Referrals: JENARO SARMIENTO MD [Primary Care Provider] - 3-5 Days
[2016-12-15 01:06] VITALS: BP 132/78
== END 2016-12-15 01:26 | disposition home or self-care (01) ==
LOC: ED 18:43
DX: L02.212 Cutaneous abscess of back [any part, except buttock and flank] (principal); L03.312 Cellulitis of back [any part except buttock and flank]; E11.9 Type 2 diabetes mellitus without complications; I10 Essential (primary) hypertension; F32.9 Major depressive disorder, single episode, unspecified; F41.9 Anxiety disorder, unspecified; F17.200 Nicotine dependence, unspecified, uncomplicated; Z91.013 Allergy to seafood; Z88.8 Allergy status to other drugs, medicaments and biological substances
CPT/HCPCS: 99282

== ENCOUNTER 2017-05-02 19:56 | Emergency (ER) | payer MEDICARE ==
[2017-05-03 00:39] LABS: Hematocrit 42.7 % (30.3-42.9); Hemoglobin 14.2 gm/dl (10.1-14.3); Mean Corpuscular HGB Conc 33 % (30-34); Mean Corpuscular Hemoglobin 32 pg (28-32); Mean Corpuscular Volume 96 fl (79-97); Platelet Count 233 K/mm3 (140-440); Red Blood Count 4.46 M/mm3 (3.65-5.03); Red Cell Distribution Width 13.4 % (13.2-15.2)
[2017-05-03 00:56] LABS: BUN/Creatinine Ratio 22; Blood Urea Nitrogen 13 mg/dL (7-17); Calcium 9.4 mg/dL (8.4-10.2); Hemolysis Index 84
[2017-05-03] MEDS ORDERED: ZOFRAN ONE (05:37)
[2017-05-03] MEDS ORDERED: NACL 0.9% 1000 ML 1,000 ML ONE (05:38)
[2017-05-03] MEDS ORDERED: MORPHINE ONE (05:38)
[2017-05-03] MEDS ORDERED: MORPHINE IV ONE ×2 (05:59→09:51)
[2017-05-03] MEDS ORDERED: NACL 0.9% 1000 ML 1,000 ML IV ONE ×2 (06:00→10:01)
[2017-05-03] MEDS ORDERED: ZOFRAN IV ONE (06:00)
[2017-05-03] MEDS ORDERED: BENADRYL ONE (06:07)
[2017-05-03] MEDS ORDERED: BENADRYL IV ONE (06:12)
--- NOTE | 2017-05-03 06:39 | Emergency Department Report ---
HPI - General Chief Complaint: Animal Bite Time Seen by Provider: 05/03/17 06:06 - HPI HPI: This is a 37-year-old female presents to the emergency department with complaint of a painful red lesion to the lateral right calf. She thinks it is an insect bite and it was small, raised and red yesterday. However today it seems to have gotten larger and more painful. So far there has not been any weeping, bruising or any discharge. The patient did not see any particular insect or animal sting or bite her. She has a past medical history of insulin- dependent diabetes and is on a insulin pump but admits that the medication she needs is currently at the pharmacy that she has not used it in the past few days. She does have a primary care physician, Dr. Bocanegra, but has not seen them regarding her symptoms. No recent travel or sick contacts at home. She denies any fever, chest pain, shortness of breath, nausea, vomiting. She has not taken anything for her symptoms prior to presentation. ED Past Medical Hx - Past Medical History Previous Medical History?: Yes Hx Hypertension: Yes Hx Diabetes: Yes Hx Psychiatric Treatment: Yes (anxiety depression) Hx HIV: Yes Additional medical history: HIGH CHOLESTEROL - Surgical History Past Surgical History?: Yes Hx Cholecystectomy: Yes Additional Surgical History: d&c x1, insulin pump placement, TOTAL HYSTERECTOMY - Social History Smoking Status: Current Every Day Smoker - Medications Home Medications: Home Medications Medication Instructions Recorded Confirmed Last Taken Type ALPRAZolam [Xanax] 0.25 mg PO HS 04/13/13 05/03/17 07/10/15 History Atorvastatin [Lipitor] 40 mg PO HS 04/13/13 05/03/17 07/10/15 History Gabapentin [Gralise] 800 mg PO TID 04/13/13 05/03/17 07/10/15 History Lisinopril [Zestril TAB] 10 mg PO DAILY 04/13/13 05/03/17 07/10/15 History Insulin Pump/Infus. Set/Meter 1 each MC QDAY 02/16/14 05/03/17 07/07/15 History [Accu-Chek Combo System] Citalopram [celeXA] 10 mg PO QDAY 08/10/14 05/03/17 07/10/15 History Abacavir/Dolutegravir/Lamivudi 1 each PO DAILY 07/10/15 05/03/17 07/10/15 History [Triumeq Tablet] Nortriptyline [Pamelor] 50 mg PO QDAY 07/10/15 05/03/17 07/10/15 History HYDROcodone/ACETAMINOPHEN [[place] 1 each PO Q6H PRN #14 tablet 05/03/17 Unknown Rx 5-325 Tablet] Sulfamethoxazole/Trimethoprim 1 each PO BID #20 tablet 05/03/17 Unknown Rx [Bactrim DS TAB] ED Review of Systems ROS: Stated complaint: INSECT BITE Other details as noted in HPI Comment: All other systems reviewed and negative Constitutional: denies: chills, fever Eyes: denies: eye pain, eye discharge, vision change ENT: denies: ear pain, throat pain Respiratory: denies: cough, shortness of breath, wheezing Cardiovascular: denies: chest pain, palpitations Gastrointestinal: denies: abdominal pain, nausea, diarrhea Genitourinary: denies: urgency, dysuria, discharge Musculoskeletal: myalgia. denies: joint swelling Skin: lesions. denies: rash Neurological: denies: headache, weakness, paresthesias Physical Exam - Physical Exam Vital Signs: Vital Signs 05/02/17 05/03/17 05/03/17 23:49 04:55 06:00 Temperature 98.8 F 98.8 F Pulse Rate 111 H 101 H Respiratory 18 20 20 Rate Blood Pressure 151/85 Blood Pressure 136/80 [Left] O2 Sat by Pulse 98 99 99 Oximetry 05/03/17 06:02 Temperature Pulse Rate Respiratory 20 Rate Blood Pressure Blood Pressure [Left] O2 Sat by Pulse Oximetry Physical Exam: GENERAL: The patient is well-developed well-nourished. HENT: Normocephalic. Atraumatic. Patient has moist mucous membranes. EYES: Extraocular motions are intact. Pupils equal reactive to light bilaterally. NECK: Supple. Trachea is midline. CHEST/LUNGS: Clear to auscultation. There is no respiratory distress noted. HEART/CARDIOVASCULAR: Regular. There is no tachycardia. There is no murmur. ABDOMEN: Abdomen is soft, nontender. Patient has normal bowel sounds. There is no abdominal distention. SKIN: There is a circular firm raised lesion to the right lateral calf that is about 5 cm in diameter. There is a small central clearing that appears as if something previously drained. The lesion is slightly erythematous and is tender to palpation. Negative Nikolsky sign. NEURO: The patient is awake, alert, and oriented. The patient is cooperative. The patient has no focal neurologic deficits. The patient has normal speech and gait. MUSCULOSKELETAL: There is no tenderness or deformity. There is no limitation range of motion. There is no evidence of acute injury. Pedal pulses +2 over 4 to the affected right leg. ED Course Vital Signs 05/02/17 05/03/17 05/03/17 23:49 04:55 06:00 Temperature 98.8 F 98.8 F Pulse Rate 111 H 101 H Respiratory 18 20 20 Rate Blood Pressure 151/85 Blood Pressure 136/80 [Left] O2 Sat by Pulse 98 99 99 Oximetry 05/03/17 06:02 Temperature Pulse Rate Respiratory 20 Rate Blood Pressure Blood Pressure [Left] O2 Sat by Pulse Oximetry ED Medical Decision Making - Lab Data Result diagrams: 05/03/17 00:04 05/03/17 10:14 - Radiology Data Radiology results: image reviewed interpreted by me: X-ray of the right tib-fib does not show any fracture, dislocation or any acute process. - Medical Decision Making Patient presents with hyperglycemia with some medication noncompliance she has not filled her insulin pump medication. She does present with a elevated blood sugar of about 580 but does not have a significant elevated anion gap and her venous pH is basically at the low side of normal. She was given multiple IV fluid boluses and some IV insulin and her blood sugars come down to about 340. Patient came in secondary to a painful lesion or abscess to the right lateral calf. The tenderness to palpation is localized to this lesion. I do not appreciate significant swelling. It is firm and has a central clearing that appears consistent with some previous drainage and therefore I decided an I&D was not necessary. She was given IV antibiotics and pain medication. X-ray did not show any fracture, dislocation or signs of osteomyelitis. Since the pain is localized and she does have a lesion and possibly some developing cellulitis, it appears less this patient is that she has a DVT. Also there has been no recent surgery, immobility, travel. Patient was in the emergency department for multiple hours and was reevaluated multiple times and is feeling improved. She did not want to wait any further for her glucose to come down as she says that she has medication waiting for her at the pharmacy currently and she can manage her own diabetes with the insulin pump. She has good follow-up with primary care and infectious disease. She was encouraged to return to the emergency Department with any worsening of her symptoms or any acute distress. - Differential Diagnosis abscess, bulla, cellulitis Critical Care Time: No Critical care attestation.: If time is entered above; I have spent that time in minutes in the direct care of this critically ill patient, excluding procedure time. ED Disposition Clinical Impression: Hyperglycemia due to type 1 diabetes mellitus, Abscess of leg Disposition: DC-01 TO HOME OR SELFCARE Is pt being admited?: No Condition: Stable Instructions: Abscess (ED), Diabetic Hyperglycemia (ED) Additional Instructions: Please go today and picker and packer her medication so that your insulin pump can be used and you can manage your diabetes. Return to the emergency department with any worsening of your symptoms, development of fever, or any acute distress. You need to continue to monitor the abscess and/or blister to your leg to make sure that it is not worsening or developing into an ulcer. Take the antibiotics as prescribed. Follow-up with both your primary care physician and your infectious disease physician. You have been prescribed a medication that is sedating and therefore should not be taken prior to driving, working, and responsible for children and in no way should be mixed with alcohol of any quantity. Prescriptions: HYDROcodone/ACETAMINOPHEN [[place] 5-325 Tablet] 1 each PO Q6H PRN #14 tablet PRN Reason: Pain Sulfamethoxazole/Trimethoprim [Bactrim DS TAB] 1 each PO BID #20 tablet Referrals: PRIMARY CARE, [Primary Care Provider] - SABRINA
[2017-05-03] MEDS ORDERED: VANCOMYCIN/NS 1 GM/250 ML 1 GM/250 ML BAG IV SCH (07:00)
[2017-05-03] MEDS ORDERED: VANCOMYCIN 2,000 MG in NACL 0.9% 500 ML 500 ML IV ONE (08:00)
[2017-05-03 10:34] LABS: BUN/Creatinine Ratio 20; Blood Urea Nitrogen 10 mg/dL (7-17); Calcium 8.6 mg/dL (8.4-10.2); Hemolysis Index 40
--- NOTE | 2017-05-03 11:14 | XRay Report ---
XRAY RIGHT TIBIA AND FIBULA TWO VIEWS: Fever twenty-eight 2 thousand eighteen CLINICAL: Pain. FINDINGS: No fracture or dislocation. Normal alignment at the knee and at the ankle. No knee joint effusion. There appears to be moderate proximal and predominantly anterior soft tissue edema with skin thickening.No soft tissue air or foreign body. IMPRESSION: Nonspecific soft tissue edema. No bony abnormality.
[2017-05-03 12:39] VITALS: BP 114/61
== END 2017-05-03 12:39 | disposition home or self-care (01) ==
LOC: ED 19:56
DX: L02.415 Cutaneous abscess of right lower limb (principal); E10.65 Type 1 diabetes mellitus with hyperglycemia; I10 Essential (primary) hypertension; F17.200 Nicotine dependence, unspecified, uncomplicated
CPT/HCPCS: 36415; 73590; 80048; 82805; 82962; 85027; 96361; 96365; 96366; 96375; 96376; 99283; J1200; J2270; J2405; J3370; J7030; J7040; J1815

== ENCOUNTER 2017-05-21 11:51 | Emergency (ER) | payer MEDICARE ==
[2017-05-21 12:28] VITALS: BP 146/91
--- NOTE | 2017-05-21 14:25 | Emergency Department Report ---
- General Chief complaint: Wound/Laceration Stated complaint: RIGHT LEG INSECT BITE Time Seen by Provider: 05/21/17 14:20 Source: patient Mode of arrival: Ambulatory Limitations: No Limitations - History of Present Illness Initial comments: Patient is a 37-year-old female who is presenting with a wound to the right calf. Patient states approximately 2 weeks ago she was here in the emergency department was started on antibiotics and pain meds and was getting better. Her area of cellulitis, possible insect bite did open on its own was draining and was started to improve however over the last week since she's been off of antibiotics the drainage has increased and the area of erythema has increased as well. Patient denies any fever nausea vomiting diarrhea at this time. Patient states pain is 8 out of 10 in severity and is located at the wound which is achy sharp pain - Related Data Home Medications Medication Instructions Recorded Confirmed Last Taken ALPRAZolam [Xanax] 0.25 mg PO HS 04/13/13 05/03/17 07/10/15 Atorvastatin [Lipitor] 40 mg PO HS 04/13/13 05/03/17 07/10/15 Gabapentin [Gralise] 800 mg PO TID 04/13/13 05/03/17 07/10/15 Lisinopril [Zestril TAB] 10 mg PO DAILY 04/13/13 05/03/17 07/10/15 Insulin Pump/Infus. Set/Meter 1 each MC QDAY 02/16/14 05/03/17 07/07/15 [Accu-Chek Combo System] Citalopram [celeXA] 10 mg PO QDAY 08/10/14 05/03/17 07/10/15 Abacavir/Dolutegravir/Lamivudi 1 each PO DAILY 07/10/15 05/03/17 07/10/15 [Triumeq Tablet] Nortriptyline [Pamelor] 50 mg PO QDAY 07/10/15 05/03/17 07/10/15 Previous Rx's Medication Instructions Recorded Last Taken Type HYDROcodone/ACETAMINOPHEN [[place] 1 each PO Q6H PRN #14 tablet 05/03/17 Unknown Rx 5-325 Tablet] Sulfamethoxazole/Trimethoprim 1 each PO BID #20 tablet 05/03/17 Unknown Rx [Bactrim DS TAB] Doxycycline [Vibramycin CAP] 100 mg PO Q12HR #20 capsule 05/21/17 Unknown Rx HYDROcodone/APAP 5-325 [[place] 1 each PO Q4HR PRN #12 tablet 05/21/17 Unknown Rx 5/325] Ibuprofen [Motrin] 800 mg PO Q8HR PRN #20 tablet 05/21/17 Unknown Rx Allergies Allergy/AdvReac Type Severity Reaction Status Date / Time iodine Allergy Swelling Verified 10/12/16 09:40 seafood Allergy Rash Uncoded 10/12/16 09:40 Abscess Boil HPI - HPI Chief Complaint: Wound/Laceration Stated Complaint: RIGHT LEG INSECT BITE Time Seen by Provider: 05/21/17 14:20 Home Medications: Home Medications Medication Instructions Recorded Confirmed Last Taken ALPRAZolam [Xanax] 0.25 mg PO HS 04/13/13 05/03/17 07/10/15 Atorvastatin [Lipitor] 40 mg PO HS 04/13/13 05/03/17 07/10/15 Gabapentin [Gralise] 800 mg PO TID 04/13/13 05/03/17 07/10/15 Lisinopril [Zestril TAB] 10 mg PO DAILY 04/13/13 05/03/17 07/10/15 Insulin Pump/Infus. Set/Meter 1 each MC QDAY 02/16/14 05/03/17 07/07/15 [Accu-Chek Combo System] Citalopram [celeXA] 10 mg PO QDAY 08/10/14 05/03/17 07/10/15 Abacavir/Dolutegravir/Lamivudi 1 each PO DAILY 07/10/15 05/03/17 07/10/15 [Triumeq Tablet] Nortriptyline [Pamelor] 50 mg PO QDAY 07/10/15 05/03/17 07/10/15 Previous Rx's Medication Instructions Recorded Last Taken Type HYDROcodone/ACETAMINOPHEN [[place] 1 each PO Q6H PRN #14 tablet 05/03/17 Unknown Rx 5-325 Tablet] Sulfamethoxazole/Trimethoprim 1 each PO BID #20 tablet 05/03/17 Unknown Rx [Bactrim DS TAB] Doxycycline [Vibramycin CAP] 100 mg PO Q12HR #20 capsule 05/21/17 Unknown Rx HYDROcodone/APAP 5-325 [[place] 1 each PO Q4HR PRN #12 tablet 05/21/17 Unknown Rx 5/325] Ibuprofen [Motrin] 800 mg PO Q8HR PRN #20 tablet 05/21/17 Unknown Rx Allergies/Adverse Reactions: Allergies Allergy/AdvReac Type Severity Reaction Status Date / Time iodine Allergy Swelling Verified 10/12/16 09:40 seafood Allergy Rash Uncoded 10/12/16 09:40 ED Review of Systems ROS: Stated complaint: RIGHT LEG INSECT BITE Other details as noted in HPI Comment: All other systems reviewed and negative ED Past Medical Hx - Past Medical History Hx Hypertension: Yes Hx Diabetes: Yes Hx Psychiatric Treatment: Yes (anxiety depression) Hx HIV: Yes Additional medical history: HIGH CHOLESTEROL - Surgical History Hx Cholecystectomy: Yes Additional Surgical History: d&c x1, insulin pump placement, TOTAL HYSTERECTOMY - Social History Smoking Status: Current Every Day Smoker Substance Use Type: Alcohol - Medications Home Medications: Home Medications Medication Instructions Recorded Confirmed Last Taken Type ALPRAZolam [Xanax] 0.25 mg PO HS 04/13/13 05/03/17 07/10/15 History Atorvastatin [Lipitor] 40 mg PO HS 04/13/13 05/03/17 07/10/15 History Gabapentin [Gralise] 800 mg PO TID 04/13/13 05/03/17 07/10/15 History Lisinopril [Zestril TAB] 10 mg PO DAILY 04/13/13 05/03/17 07/10/15 History Insulin Pump/Infus. Set/Meter 1 each MC QDAY 02/16/14 05/03/17 07/07/15 History [Accu-Chek Combo System] Citalopram [celeXA] 10 mg PO QDAY 08/10/14 05/03/17 07/10/15 History Abacavir/Dolutegravir/Lamivudi 1 each PO DAILY 07/10/15 05/03/17 07/10/15 History [Triumeq Tablet] Nortriptyline [Pamelor] 50 mg PO QDAY 07/10/15 05/03/17 07/10/15 History HYDROcodone/ACETAMINOPHEN [[place] 1 each PO Q6H PRN #14 tablet 05/03/17 Unknown Rx 5-325 Tablet] Sulfamethoxazole/Trimethoprim 1 each PO BID #20 tablet 05/03/17 Unknown Rx [Bactrim DS TAB] Doxycycline [Vibramycin CAP] 100 mg PO Q12HR #20 capsule 05/21/17 Unknown Rx HYDROcodone/APAP 5-325 [[place] 1 each PO Q4HR PRN #12 tablet 05/21/17 Unknown Rx 5/325] Ibuprofen [Motrin] 800 mg PO Q8HR PRN #20 tablet 05/21/17 Unknown Rx ED Physical Exam - General Limitations: No Limitations General appearance: alert, in no apparent distress - Head Head exam: Present: atraumatic, normocephalic - Eye Eye exam: Present: normal appearance - ENT ENT exam: Present: mucous membranes moist - Neck Neck exam: Present: normal inspection - Respiratory Respiratory exam: Present: normal lung sounds bilaterally. Absent: respiratory distress - Cardiovascular Cardiovascular Exam: Present: regular rate, normal rhythm. Absent: systolic murmur, diastolic murmur, rubs, gallop - GI/Abdominal GI/Abdominal exam: Present: soft, normal bowel sounds - Extremities Exam Extremities exam: Present: normal inspection - Back Exam Back exam: Present: normal inspection - Neurological Exam Neurological exam: Present: alert, oriented X3 - Psychiatric Psychiatric exam: Present: normal affect, normal mood - Skin Skin exam: Present: warm, dry, intact, normal color, other (there is a area approximately size of a silver dollar with erythema with a central piece-sized opening with granulation tissue visualized within the the hole. There is some mild purulent drainage. There is no fluctuance present this is on the right lateral calf). Absent: rash ED Course Vital Signs 05/21/17 12:19 Temperature 98 F Pulse Rate 107 H Respiratory 16 Rate Blood Pressure 146/91 O2 Sat by Pulse 97 Oximetry ED Medical Decision Making - Medical Decision Making Patient has no signs of systemic disease secondary to her infection. Patient was on Bactrim previously she'll be placed on doxycycline was does cover for MRSA slightly better patient will be restarted on antibiotics and was given wound care for follow-up Critical care attestation.: If time is entered above; I have spent that time in minutes in the direct care of this critically ill patient, excluding procedure time. ED Disposition Clinical Impression: Cellulitis Qualifiers: Site of cellulitis: extremity Site of cellulitis of extremity: lower extremity Laterality: right Qualified Code(s): L03.115 - Cellulitis of right lower limb Disposition: DC-01 TO HOME OR SELFCARE Is pt being admited?: No Does the pt Need Aspirin: No Condition: Stable Instructions: Wound Infection (ED) Prescriptions: Doxycycline [Vibramycin CAP] 100 mg PO Q12HR #20 capsule HYDROcodone/APAP 5-325 [[place] 5/325] 1 each PO Q4HR PRN #12 tablet PRN Reason: Pain Ibuprofen [Motrin] 800 mg PO Q8HR PRN #20 tablet PRN Reason: Pain , Severe (7-10) [facility]errals[facility] - 3-5 Days
== END 2017-05-21 14:31 | disposition home or self-care (01) ==
LOC: ED 11:51
DX: L03.115 Cellulitis of right lower limb (principal); I10 Essential (primary) hypertension; E11.9 Type 2 diabetes mellitus without complications; F41.9 Anxiety disorder, unspecified; F32.9 Major depressive disorder, single episode, unspecified; E78.00 Pure hypercholesterolemia, unspecified; F17.200 Nicotine dependence, unspecified, uncomplicated; Z90.710 Acquired absence of both cervix and uterus; Z90.49 Acquired absence of other specified parts of digestive tract; Z91.013 Allergy to seafood; Z91.041 Radiographic dye allergy status; Z79.4 Long term (current) use of insulin
CPT/HCPCS: 99282

== ENCOUNTER 2017-06-05 07:55 | Outpatient (CLI) | payer MEDICARE ==
[2017-06-05] MEDS ORDERED: XYLOCAINE TOPICAL 4% TP ONE ×2 (08:59→09:01)
[2017-06-05] MEDS ORDERED: NACL 0.9% 500 ML IR ONE (09:30)
[2017-06-05] MEDS ORDERED: NACL 0.9% IR PRN (12:42)
== END 2017-06-05 07:56 | disposition home or self-care (01) ==
LOC: WOUND 07:55
PROVIDERS: ATTEND Podiatrist
DX: E11.622 Type 2 diabetes mellitus with other skin ulcer (principal); L97.812 Non-pressure chronic ulcer of other part of right lower leg with fat layer exposed; Z90.710 Acquired absence of both cervix and uterus; F17.210 Nicotine dependence, cigarettes, uncomplicated
CPT/HCPCS: 87075; 87116; 87186

== ENCOUNTER 2017-06-12 08:13 | Outpatient (CLI) | payer MEDICARE ==
[2017-06-12] MEDS ORDERED: XYLOCAINE TOPICAL 4% TP ONE (08:36)
== END 2017-06-12 08:14 | disposition home or self-care (01) ==
LOC: WOUND 08:13
PROVIDERS: ATTEND Podiatrist
DX: E11.622 Type 2 diabetes mellitus with other skin ulcer (principal); L97.812 Non-pressure chronic ulcer of other part of right lower leg with fat layer exposed; F41.9 Anxiety disorder, unspecified; F17.200 Nicotine dependence, unspecified, uncomplicated; Z90.710 Acquired absence of both cervix and uterus

== ENCOUNTER 2017-07-09 11:29 | Outpatient (CLI) | payer MEDICARE ==
[~2017-07-09 11:29] MED LIST: HumuLIN R ONE; MORPHINE ONE
[2017-07-09] MEDS ORDERED: XYLOCAINE TOPICAL 4% TP ONE ×2 (11:52→11:53)
== END 2017-07-09 11:30 | disposition home or self-care (01) ==
LOC: WOUND 11:29
PROVIDERS: ATTEND Nurse Practitioner
DX: T81.89XA Other complications of procedures, not elsewhere classified, initial encounter (principal); E11.622 Type 2 diabetes mellitus with other skin ulcer; L97.811 Non-pressure chronic ulcer of other part of right lower leg limited to breakdown of skin; L73.2 Hidradenitis suppurativa; B20 Human immunodeficiency virus [HIV] disease; F17.200 Nicotine dependence, unspecified, uncomplicated; Z90.710 Acquired absence of both cervix and uterus; Y83.8 Other surgical procedures as the cause of abnormal reaction of the patient, or of later complication, without mention of misadventure at the time of the procedure; Y92.89 Other specified places as the place of occurrence of the external cause
CPT/HCPCS: J1815; J2270

== ENCOUNTER 2017-07-16 10:28 | Outpatient (CLI) | payer MEDICARE ==
[2017-07-16] MEDS ORDERED: XYLOCAINE TOPICAL 4% TP ONE ×2 (11:17)
== END 2017-07-16 10:29 | disposition home or self-care (01) ==
LOC: WOUND 10:28
PROVIDERS: ATTEND Nurse Practitioner
DX: T81.89XD Other complications of procedures, not elsewhere classified, subsequent encounter (principal); E11.622 Type 2 diabetes mellitus with other skin ulcer; L97.811 Non-pressure chronic ulcer of other part of right lower leg limited to breakdown of skin; L73.2 Hidradenitis suppurativa; B20 Human immunodeficiency virus [HIV] disease; F17.200 Nicotine dependence, unspecified, uncomplicated; Z90.710 Acquired absence of both cervix and uterus; Y83.8 Other surgical procedures as the cause of abnormal reaction of the patient, or of later complication, without mention of misadventure at the time of the procedure

== ENCOUNTER 2017-07-23 11:01 | Outpatient (CLI) | payer MEDICARE ==
[2017-07-23] MEDS ORDERED: XYLOCAINE TOPICAL 4% TP ONE ×2 (11:45→11:56)
== END 2017-07-23 11:02 | disposition home or self-care (01) ==
LOC: WOUND 11:01
PROVIDERS: ATTEND Nurse Practitioner
DX: T81.89XD Other complications of procedures, not elsewhere classified, subsequent encounter (principal); E11.622 Type 2 diabetes mellitus with other skin ulcer; L97.811 Non-pressure chronic ulcer of other part of right lower leg limited to breakdown of skin; L73.2 Hidradenitis suppurativa; B20 Human immunodeficiency virus [HIV] disease; F41.9 Anxiety disorder, unspecified; F17.200 Nicotine dependence, unspecified, uncomplicated; Z90.710 Acquired absence of both cervix and uterus; Y83.8 Other surgical procedures as the cause of abnormal reaction of the patient, or of later complication, without mention of misadventure at the time of the procedure

== ENCOUNTER 2017-08-24 14:28 | Emergency (ER) | payer MEDICARE ==
[2017-08-24 15:57] LABS: Basophils % (Auto) 0.2 % (0.0-1.8); Eosinophils # (Auto) 0.1 K/mm3 (0.0-0.4); Eosinophils % (Auto) 1.8 % (0.0-4.3); Hematocrit 43.6 % (30.3-42.9); Hemoglobin 14.1 gm/dl (10.1-14.3); Lymphocytes # (Auto) 2.3 K/mm3 (1.2-5.4); Lymphocytes % (Auto) 34.5 % (13.4-35.0); Mean Corpuscular HGB Conc 32 % (30-34); Mean Corpuscular Hemoglobin 30 pg (28-32); Mean Corpuscular Volume 93 fl (79-97); Monocytes # (Auto) 0.4 K/mm3 (0.0-0.8); Monocytes % (Auto) 6.2 % (0.0-7.3); Platelet Count 201 K/mm3 (140-440); Red Blood Count 4.71 M/mm3 (3.65-5.03); Red Cell Distribution Width 15.2 % (13.2-15.2)
[2017-08-24 16:29] LABS: BUN/Creatinine Ratio 27; Blood Urea Nitrogen 16 mg/dL (7-17); Calcium 9.6 mg/dL (8.4-10.2); Hemolysis Index 15
[2017-08-24 21:33] LABS: Bacteria,Urine 1+ /HPF (Negative); Bilirubin,Urine NEG (Negative); Blood,Urine SM (Negative); Color,Urine Yellow (Yellow); Mucus,Urine FEW /HPF; Protein,Urine <15 mg/dL mg/dL (Negative); Urobilinogen,Urine < 2.0 mg/dL (<2.0)
[2017-08-25] MEDS ORDERED: HumuLIN R IV ONE
[2017-08-25] MEDS ORDERED: NACL 0.9% 1000 ML 1,000 ML IV ONE
--- NOTE | 2017-08-25 | Emergency Department Report ---
ED General Adult HPI - General Chief complaint: Wound/Laceration Stated complaint: WOUND Time Seen by Provider: 08/24/17 23:47 Source: patient Mode of arrival: Ambulatory Limitations: No Limitations - History of Present Illness Initial comments: Complaints of pain with warmth and redness previous abdominal wall incisional scar she says associated hysterectomy she is complaining of generalized abdominal pain with warmth and erythema and local drainage -: Gradual, days(s), unknown Location: abdomen Radiation: non-radiation Severity scale (0 -10): 10 Consistency: intermittent Associated Symptoms: denies other symptoms, malaise. denies: confusion, chest pain, cough, diaphoresis, fever/chills, headaches, loss of appetite, nausea/ vomiting, rash, seizure, shortness of breath, syncope, weakness - Related Data Home Medications Medication Instructions Recorded Confirmed Last Taken ALPRAZolam [Xanax] 0.25 mg PO HS 04/13/13 05/03/17 07/10/15 Atorvastatin [Lipitor] 40 mg PO HS 04/13/13 05/03/17 07/10/15 Gabapentin [Gralise] 800 mg PO TID 04/13/13 05/03/17 07/10/15 Lisinopril [Zestril TAB] 10 mg PO DAILY 04/13/13 05/03/17 07/10/15 Insulin Pump/Infus. Set/Meter 1 each MC QDAY 02/16/14 05/03/17 07/07/15 [Accu-Chek Combo System] Citalopram [celeXA] 10 mg PO QDAY 08/10/14 05/03/17 07/10/15 Abacavir/Dolutegravir/Lamivudi 1 each PO DAILY 07/10/15 05/03/17 07/10/15 [Triumeq Tablet] Nortriptyline(Nf) [Pamelor(Nf)] 50 mg PO QDAY 07/10/15 05/03/17 07/10/15 Previous Rx's Medication Instructions Recorded Last Taken Type HYDROcodone/ACETAMINOPHEN [Rachel 1 each PO Q6H PRN #14 tablet 05/03/17 Unknown Rx 5-325 Tablet] Sulfamethoxazole/Trimethoprim 1 each PO BID #20 tablet 05/03/17 Unknown Rx [Bactrim DS TAB] Doxycycline [Vibramycin CAP] 100 mg PO Q12HR #20 capsule 05/21/17 Unknown Rx HYDROcodone/APAP 5-325 [Rachel 1 each PO Q4HR PRN #12 tablet 05/21/17 Unknown Rx 5-325 mg TAB] Ibuprofen [Motrin 800 MG tab] 800 mg PO Q8HR PRN #20 tablet 05/21/17 Unknown Rx Ciprofloxacin HCl [Ciprofloxacin 500 mg PO BID #20 tablet 07/06/17 Unknown Rx TAB] Insulin Aspart [NovoLOG Flexpen] 1 dose SQ AC PRN #1 pen 07/06/17 Unknown Rx Insulin Glargine [Lantus VIAL] 15 units SUB-Q QAMDIAB #100 units 07/06/17 Unknown Rx Allergies Allergy/AdvReac Type Severity Reaction Status Date / Time iodine Allergy Swelling Verified 07/02/17 19:04 metformin AdvReac Nausea Verified 07/02/17 19:04 seafood Allergy Rash Uncoded 07/02/17 19:04 ED Review of Systems ROS: Stated complaint: WOUND Other details as noted in HPI Comment: All other systems reviewed and negative Constitutional: denies: diaphoresis, fever, malaise Eyes: denies: eye discharge, vision change ENT: denies: dental pain, hearing loss, epistaxis Respiratory: denies: shortness of breath, SOB with exertion, SOB at rest, stridor Cardiovascular: denies: chest pain, palpitations, dyspnea on exertion, orthopnea , edema, syncope Gastrointestinal: abdominal pain. denies: nausea, vomiting, diarrhea, constipation, hematemesis, melena, hematochezia Neurological: denies: headache, weakness, numbness, paresthesias, confusion, abnormal gait, vertigo ED Past Medical Hx - Past Medical History Hx Hypertension: Yes Hx Diabetes: Yes Hx Psychiatric Treatment: Yes (anxiety depression) Hx Asthma: Yes Hx HIV: Yes Additional medical history: HIGH CHOLESTEROL - Surgical History Hx Cholecystectomy: Yes Additional Surgical History: d&c x1, insulin pump placement, TOTAL HYSTERECTOMY - Social History Smoking Status: Current Every Day Smoker - Medications Home Medications: Home Medications Medication Instructions Recorded Confirmed Last Taken Type ALPRAZolam [Xanax] 0.25 mg PO HS 04/13/13 05/03/17 07/10/15 History Atorvastatin [Lipitor] 40 mg PO HS 04/13/13 05/03/17 07/10/15 History Gabapentin [Gralise] 800 mg PO TID 04/13/13 05/03/17 07/10/15 History Lisinopril [Zestril TAB] 10 mg PO DAILY 04/13/13 05/03/17 07/10/15 History Insulin Pump/Infus. Set/Meter 1 each MC QDAY 02/16/14 05/03/17 07/07/15 History [Accu-Chek Combo System] Citalopram [celeXA] 10 mg PO QDAY 08/10/14 05/03/17 07/10/15 History Abacavir/Dolutegravir/Lamivudi 1 each PO DAILY 07/10/15 05/03/17 07/10/15 History [Triumeq Tablet] Nortriptyline(Nf) [Pamelor(Nf)] 50 mg PO QDAY 07/10/15 05/03/17 07/10/15 History HYDROcodone/ACETAMINOPHEN [Rachel 1 each PO Q6H PRN #14 tablet 05/03/17 Unknown Rx 5-325 Tablet] Sulfamethoxazole/Trimethoprim 1 each PO BID #20 tablet 05/03/17 Unknown Rx [Bactrim DS TAB] Doxycycline [Vibramycin CAP] 100 mg PO Q12HR #20 capsule 05/21/17 Unknown Rx HYDROcodone/APAP 5-325 [Rachel 1 each PO Q4HR PRN #12 tablet 05/21/17 Unknown Rx 5-325 mg TAB] Ibuprofen [Motrin 800 MG tab] 800 mg PO Q8HR PRN #20 tablet 05/21/17 Unknown Rx Ciprofloxacin HCl [Ciprofloxacin 500 mg PO BID #20 tablet 07/06/17 Unknown Rx TAB] Insulin Aspart [NovoLOG Flexpen] 1 dose SQ AC PRN #1 pen 07/06/17 Unknown Rx Insulin Glargine [Lantus VIAL] 15 units SUB-Q QAMDIAB #100 units 07/06/17 Unknown Rx ED Physical Exam - General Limitations: No Limitations General appearance: alert, in no apparent distress, anxious - Head Head exam: Present: atraumatic, normocephalic - Eye Eye exam: Present: normal appearance, PERRL, EOMI - ENT ENT exam: Present: normal exam, normal orophraynx - Neck Neck exam: Present: normal inspection. Absent: tenderness, meningismus - Respiratory Respiratory exam: Present: normal lung sounds bilaterally. Absent: respiratory distress, wheezes, rales, rhonchi, stridor, chest wall tenderness - Cardiovascular Cardiovascular Exam: Present: regular rate, normal rhythm - GI/Abdominal GI/Abdominal exam: Present: soft, other (redness and warmth to the wall no abscess appreciated on CT). Absent: distended, tenderness, guarding, rebound, rigid, mass, pulsatile mass - Extremities Exam Extremities exam: Present: normal inspection, normal capillary refill. Absent: tenderness, pedal edema, joint swelling, calf tenderness - Back Exam Back exam: Present: normal inspection. Absent: CVA tenderness (R), CVA tenderness (L), muscle spasm, paraspinal tenderness, vertebral tenderness - Neurological Exam Neurological exam: Present: alert, oriented X3, CN II-XII intact. Absent: motor sensory deficit - Psychiatric Psychiatric exam: Present: anxious - Skin Skin exam: Present: other (, wall warmth and erythema without obvious drainage() ED Course Vital Signs 08/24/17 08/24/17 08/24/17 15:20 23:50 23:52 Temperature 98.4 F 98.5 F Pulse Rate 112 H 107 H Respiratory 20 16 16 Rate Blood Pressure 145/89 Blood Pressure 133/82 [Left] O2 Sat by Pulse 97 100 100 Oximetry 08/25/17 08/25/17 00:48 01:18 Temperature Pulse Rate Respiratory 16 16 Rate Blood Pressure Blood Pressure [Left] O2 Sat by Pulse Oximetry ED Medical Decision Making - Lab Data Result diagrams: 08/24/17 15:33 08/24/17 15:33 - Radiology Data Radiology results: report reviewed - Medical Decision Making This is an acute abdomen at this time she has no evidence of abscess she does have a abdominal wall cellulitis radiologist was also worried about a possible fistulous tract this will need to be followed up with her [employer] doctor she will verbalize understanding when I did discuss this with her. She doesn't white count her glucose is elevated but she is not in DKA. She was given IV fluids and insulin she is stable for outpatient follow-up urinalysis looks contaminated. Critical care attestation.: If time is entered above; I have spent that time in minutes in the direct care of this critically ill patient, excluding procedure time. ED Disposition Clinical Impression: Abdominal wall cellulitis Disposition: DC-01 TO HOME OR SELFCARE Is pt being admited?: No Condition: Stable Instructions: Cellulitis (ED) Additional Instructions: See her doctor in 1 day return immediately if new alarming symptoms take the medicines as directed return especially if develop worse pain nausea vomiting fever or other problems Referrals: JENARO SARMIENTO MD [Primary Care Provider] - 3-5 Days Time of Disposition: 04:43
[2017-08-25] MEDS ORDERED: MORPHINE IV ONE (00:15)
[2017-08-25] MEDS ORDERED: ZOFRAN IV ONE (00:15)
[2017-08-25] MEDS ORDERED: BENADRYL IV ONE (00:48)
[2017-08-25] MEDS ORDERED: BENADRYL ONE (00:53)
--- NOTE | 2017-08-25 03:06 | Cat Scan Report ---
FINAL REPORT PROCEDURE: CT ABDOMEN PELVIS W CON TECHNIQUE: Computerized axial tomography of the abdomen and pelvis was performed after the IV injection of iodinated nonionic contrast. HISTORY: Abscess. COMPARISON: CT scan dated 10/12/2016. FINDINGS: Visualized lower thorax: No significant abnormality. Liver: Normal size and attenuation. Spleen: Normal size and attenuation. Gallbladder and biliary system: Cholecystectomy. Pancreas: Normal. Adrenals: Stable 12 x 10 mm left adrenal nodule. Kidneys: Bilateral low-attenuation lesions, the largest on the right measures 2 cm. GI tract: Loops of small bowel in diastatic anterior abdominal wall without obstruction. Normal caliber air-filled appendix. Moderate stool throughout the colon to the sigmoid colon, rectosigmoid colon decompressed. Lymph nodes and mesentery: 7.5 x 5 mm pre cardiac lymph node. Small mesenteric and retroperitoneal lymph nodes. Vasculature: Normal. Bladder: Bladder is mildly thick-walled.. Reproductive organs: Hysterectomy. Small amount of air seen in the vaginal cuff. Peritoneum: No free fluid. Musculoskeletal structures: L5-S1 disc bulge. Tiny multilevel osteophytes and Schmorl's nodes of the thoracic spine. Other: Moderate skin thickening with induration and stranding about the mid lower abdomen extending to the perineum. Small defect in the skin seen in the right paramedian region about the lower aspect of the stranding changes. Mild anterior abdominal wall diastasis. 7.5 mm subcutaneous lesion about the right flank may be related to injection site. Clip in the right lower quadrant. IMPRESSION: Moderate skin thickening with induration and stranding about the mid lower abdomen extending to the perineum with small right paramedian skin defect. Findings could in part be related to surgery, but consider infectious/inflammatory process including cellulitis. No fluid collection seen on the current study. Hysterectomy. Small amount of air seen in the vagina cuff. There is interval improvement in surrounding stranding. Findings could be related to recent instrumentation, consider clinical correlation. Also consider correlating clinically if there is concern for subtle process subtle abscess, although again findings improved compared to the prior exam. Although no definite connection seen, with persistence and close proximity to the rectum, raise the question of possible rectovaginal fistula if there is continued clinical concern (see image 164 series 2). Stable left adrenal nodule. Low-attenuation renal lesions, likely cysts. Loops of small bowel in diastatic anterior abdominal wall without obstruction. Normal appendix. Bladder is mildly thick-walled, consider correlation clinically if there is concern for cystitis.
[2017-08-25 05:48] VITALS: BP 117/63
== END 2017-08-25 05:05 | disposition home or self-care (01) ==
LOC: ED 14:28
DX: L03.311 Cellulitis of abdominal wall (principal); I10 Essential (primary) hypertension; F17.200 Nicotine dependence, unspecified, uncomplicated; E78.00 Pure hypercholesterolemia, unspecified; E11.9 Type 2 diabetes mellitus without complications; J45.909 Unspecified asthma, uncomplicated; F41.9 Anxiety disorder, unspecified; Z79.899 Other long term (current) drug therapy; Z88.8 Allergy status to other drugs, medicaments and biological substances; Z91.013 Allergy to seafood; Z90.49 Acquired absence of other specified parts of digestive tract; Z90.710 Acquired absence of both cervix and uterus; Z91.041 Radiographic dye allergy status
CPT/HCPCS: 36415; 74177; 80048; 81001; 82805; 82962; 84703; 85025; 96361; 96374; 96375; 99284; J1200; J2270; J2405; J7030; Q9967; J1815

== ENCOUNTER 2017-09-04 08:09 | Outpatient (CLI) | payer MEDICARE ==
[2017-09-04] MEDS ORDERED: XYLOCAINE TOPICAL 4% TP ONE (08:33)
== END 2017-09-04 08:10 | disposition home or self-care (01) ==
LOC: WOUND 08:09
PROVIDERS: ATTEND Surgery
DX: E10.622 Type 1 diabetes mellitus with other skin ulcer (principal); L97.811 Non-pressure chronic ulcer of other part of right lower leg limited to breakdown of skin; L03.116 Cellulitis of left lower limb; I10 Essential (primary) hypertension; E78.00 Pure hypercholesterolemia, unspecified; F41.9 Anxiety disorder, unspecified; F17.210 Nicotine dependence, cigarettes, uncomplicated; Z90.710 Acquired absence of both cervix and uterus

== ENCOUNTER 2017-09-17 13:20 | Outpatient (CLI) | payer MEDICARE ==
[~2017-09-17 13:20] MED LIST changes: +DIPRIVAN 10 MG/ML IV ONE; -HumuLIN R ONE; -MORPHINE ONE; +PEPCID IV ONE; +REGLAN ONE; +TRANSDERM-SCOP TD ONE; +VERSED ONE; +XYLOCAINE TOPICAL 4% TP ONE; +ZOFRAN ONE
[2017-09-17] MEDS ORDERED: XYLOCAINE TOPICAL 4% TP ONE ×2 (13:29→15:09)
[2017-09-17] MEDS ORDERED: NACL 0.9% 500 ML IR ONE (13:29)
[2017-09-17] MEDS ORDERED: NACL 0.9% 500 ML 500 ML IV ONE (15:09)
[2017-09-17] MEDS ORDERED: NACL 0.9% IR ONE (16:30)
== END 2017-09-17 13:21 | disposition home or self-care (01) ==
LOC: WOUND 13:20
PROVIDERS: ATTEND Surgery
DX: T81.89XD Other complications of procedures, not elsewhere classified, subsequent encounter (principal); E11.622 Type 2 diabetes mellitus with other skin ulcer; L97.811 Non-pressure chronic ulcer of other part of right lower leg limited to breakdown of skin; L02.211 Cutaneous abscess of abdominal wall; I10 Essential (primary) hypertension; E78.00 Pure hypercholesterolemia, unspecified; F41.9 Anxiety disorder, unspecified; F17.200 Nicotine dependence, unspecified, uncomplicated; Z90.710 Acquired absence of both cervix and uterus; Y83.8 Other surgical procedures as the cause of abnormal reaction of the patient, or of later complication, without mention of misadventure at the time of the procedure
CPT/HCPCS: 11042; 11045; 97606; J2250; J2405; J2704; J2765; J7040

== ENCOUNTER 2017-09-21 10:38 | Outpatient (CLI) | payer MEDICARE | END 2017-09-21 10:39 | disposition home or self-care (01) | LOC: WOUND 10:38 | PROVIDERS: ATTEND Surgery | DX: T81.89XD Other complications of procedures, not elsewhere classified, subsequent encounter (principal); E11.622 Type 2 diabetes mellitus with other skin ulcer; L97.811 Non-pressure chronic ulcer of other part of right lower leg limited to breakdown of skin; L02.211 Cutaneous abscess of abdominal wall; L73.2 Hidradenitis suppurativa; B20 Human immunodeficiency virus [HIV] disease; E78.00 Pure hypercholesterolemia, unspecified; I10 Essential (primary) hypertension; F17.200 Nicotine dependence, unspecified, uncomplicated; F41.9 Anxiety disorder, unspecified; Z90.710 Acquired absence of both cervix and uterus; Y83.8 Other surgical procedures as the cause of abnormal reaction of the patient, or of later complication, without mention of misadventure at the time of the procedure | CPT/HCPCS: 97606 ==

== ENCOUNTER 2017-10-01 13:51 | Outpatient (CLI) | payer MEDICARE ==
[2017-10-01] MEDS ORDERED: XYLOCAINE TOPICAL 4% TP ONE (14:26)
[2017-10-02] MEDS ORDERED: XYLOCAINE TOPICAL 4% TP ONE (15:05)
== END 2017-10-01 13:52 | disposition home or self-care (01) ==
LOC: WOUND 13:51
PROVIDERS: ATTEND Surgery
DX: T81.89XD Other complications of procedures, not elsewhere classified, subsequent encounter (principal); E11.9 Type 2 diabetes mellitus without complications; L73.2 Hidradenitis suppurativa; B20 Human immunodeficiency virus [HIV] disease; I10 Essential (primary) hypertension; E78.00 Pure hypercholesterolemia, unspecified; F41.9 Anxiety disorder, unspecified; F17.200 Nicotine dependence, unspecified, uncomplicated; Z90.710 Acquired absence of both cervix and uterus; Y83.8 Other surgical procedures as the cause of abnormal reaction of the patient, or of later complication, without mention of misadventure at the time of the procedure
CPT/HCPCS: 99214; G0463

== ENCOUNTER 2017-10-09 13:12 | Outpatient (CLI) | payer MEDICARE ==
[2017-10-09] MEDS ORDERED: XYLOCAINE TOPICAL 4% TP ONE ×2 (13:25→15:17)
== END 2017-10-09 13:13 | disposition home or self-care (01) ==
LOC: WOUND 13:12
PROVIDERS: ATTEND Surgery
DX: T81.89XD Other complications of procedures, not elsewhere classified, subsequent encounter (principal); E11.9 Type 2 diabetes mellitus without complications; I10 Essential (primary) hypertension; F41.9 Anxiety disorder, unspecified; E78.00 Pure hypercholesterolemia, unspecified; B20 Human immunodeficiency virus [HIV] disease; L73.2 Hidradenitis suppurativa; F17.200 Nicotine dependence, unspecified, uncomplicated; Z90.710 Acquired absence of both cervix and uterus; Y83.8 Other surgical procedures as the cause of abnormal reaction of the patient, or of later complication, without mention of misadventure at the time of the procedure
CPT/HCPCS: 99214; G0463

== ENCOUNTER 2017-10-14 12:37 | Inpatient (IN) | payer MEDICARE ==
[2017-10-14] MEDS ORDERED: NACL 0.9% 500 ML 500 ML IV ONE (13:11)
[2017-10-14 14:20] LABS: Bacteria,Urine 4+ /HPF (Negative); Bilirubin,Urine NEG (Negative); Blood,Urine NEG (Negative); Color,Urine Yellow (Yellow); Mucus,Urine FEW /HPF; Urobilinogen,Urine < 2.0 mg/dL (<2.0)
[2017-10-14 14:25] LABS: WBC,Urine > 182.0 /HPF (0.0-6.0)
[2017-10-14 15:39] LABS: Basophils % (Auto) 0.1 % (0.0-1.8); Eosinophils # (Auto) 0.2 K/mm3 (0.0-0.4); Eosinophils % (Auto) 2.7 % (0.0-4.3); Hematocrit 36.6 % (30.3-42.9); Hemoglobin 12.1 gm/dl (10.1-14.3); Lymphocytes # (Auto) 2.3 K/mm3 (1.2-5.4); Lymphocytes % (Auto) 31.3 % (13.4-35.0); Mean Corpuscular HGB Conc 33 % (30-34); Mean Corpuscular Hemoglobin 31 pg (28-32); Mean Corpuscular Volume 92 fl (79-97); Monocytes # (Auto) 0.5 K/mm3 (0.0-0.8); Monocytes % (Auto) 6.5 % (0.0-7.3); Platelet Count 193 K/mm3 (140-440); Red Blood Count 3.96 M/mm3 (3.65-5.03); Red Cell Distribution Width 17.1 % (13.2-15.2)
[2017-10-14 15:51] LABS: INR 0.85 (0.87-1.13)
[2017-10-14 15:53] LABS: Alanine Aminotransferase 29 units/L (7-56); Albumin 4.2 g/dL (3.9-5); BUN/Creatinine Ratio 26; Blood Urea Nitrogen 18 mg/dL (7-17); Hemolysis Index 1
[2017-10-14] MEDS ORDERED: NACL 0.9% 1000 ML 1,000 ML IV ONE (17:34)
[2017-10-14] MEDS ORDERED: CLEOCIN 600 MG/50 mL 600 MG/50 ML BAG IV ONE (17:34)
[2017-10-14] MEDS ORDERED: ANCEF/NS 1 GM/50 ML 1 GM/50 ML BAG IV ONE (18:39)
--- NOTE | 2017-10-14 18:45 | Emergency Department Report ---
- General Chief complaint: Wound/Laceration Stated complaint: WOUND CHECK Time Seen by Provider: 10/14/17 17:24 Source: patient Mode of arrival: Ambulatory Limitations: No Limitations - History of Present Illness Initial comments: This is 37-year-old female presented to the hospital complaining of pain swelling and redness to right thigh wound over the last 2 days. She states her heart rate is elevated and she had a fever yesterday of 101.5 and she took she' s been taking Tylenol. Denies any nausea or vomiting. Patient is insulin- dependent diabetic and she is on insulin which she said her blood sugar was normal today. She has HIV since 2004 and she is on medication for HIV and has been followed by Dr. hand infectious disease doctor. She said her last viral load was undetectable. Her primary care physician is Dr. Jenaro dyer on April 2017. Patient was here and treated for right thigh abscess and was seen by Dr. Dill who took her to the OR and cleaned abscess out. She was discharged from hospital and had outpatient wound care and PICC line for antibiotic. She says she completed her antibiotic and she was seen by Dr. Dill a couple days ago. She said the wound itself is getting better but she just developed redness around the area. She reports pain as achy and sharp at 10 out of 10. Pain is worse with movement better with rest but is constant. Patient is here to be evaluated. Previous medical records evaluated. MD complaint: abscess/boil, other (redness and swelling to right upper thigh) Onset/Timin -: days(s) Tetanus Up to Date: yes Location: RLE (right upper thigh) Severity: severe Severity scale (0 -10): 10 Quality: aching, sharp Consistency: constant Improves with: rest Worsens with: immobilization, palpation, movement Associated symptoms: fever, chills, athralgias Treatments Prior to Arrival: other (Tylenol) - Related Data Home Medications Medication Instructions Recorded Confirmed Last Taken ALPRAZolam [Xanax] 0.25 mg PO HS 04/13/13 09/09/17 09/08/17 Atorvastatin [Lipitor] 40 mg PO HS 04/13/13 09/09/17 09/08/17 Gabapentin [Gralise] 800 mg PO TID 04/13/13 09/09/17 09/08/17 Abacavir/Dolutegravir/Lamivudi 1 each PO DAILY 07/10/15 09/09/17 09/08/17 [Triumeq Tablet] Amitriptyline [Elavil] 50 mg PO DAILY 09/09/17 09/09/17 09/08/17 Citalopram [Celexa] 20 mg PO QDAY 09/09/17 09/09/17 09/08/17 Omeprazole 20 mg PO DAILY 09/09/17 09/09/17 09/08/17 Zolpidem [Ambien] 10 mg PO QHS 09/09/17 09/09/17 09/08/17 Previous Rx's Medication Instructions Recorded Last Taken Type Ibuprofen [Motrin 800 MG tab] 800 mg PO Q8HR PRN #20 tablet 05/21/17 Unknown Rx Docusate Sodium [Colace] 100 mg PO BID PRN #60 capsule 09/15/17 Unknown Rx Insulin Glargine [Lantus VIAL] 40 units SUB-Q QHS 30 Days units 09/15/17 Unknown Rx Insulin Regular, Human [HumuLIN R] 10 units SUB-Q ACHS 30 Days units 09/15/17 Unknown Rx Ondansetron [Zofran Odt] 4 mg PO Q8HR #90 tab.rapdis 09/15/17 Unknown Rx Pantoprazole [Protonix TAB] 20 mg PO QDAY #30 tablet. 09/15/17 Unknown Rx oxyCODONE /ACETAMINOPHEN [Percocet 2 tab PO Q4H PRN #20 tablet 09/15/17 Unknown Rx 5/325 mg] oxyCODONE ER [OxyCONTIN ER TAB] 10 mg PO Q12HR #10 tablet 09/15/17 Unknown Rx Allergies Allergy/AdvReac Type Severity Reaction Status Date / Time iodine Allergy Swelling Verified 07/02/17 19:04 sulfamethoxazole Allergy Rash Verified 09/11/17 15:51 [From Bactrim] trimethoprim [From Bactrim] Allergy Rash Verified 09/11/17 15:51 metformin AdvReac Nausea Verified 07/02/17 19:04 seafood Allergy Rash Uncoded 07/02/17 19:04 Abscess Boil HPI - HPI Chief Complaint: Wound/Laceration Stated Complaint: WOUND CHECK Time Seen by Provider: 10/14/17 17:24 Home Medications: Home Medications Medication Instructions Recorded Confirmed Last Taken ALPRAZolam [Xanax] 0.25 mg PO HS 04/13/13 09/09/17 09/08/17 Atorvastatin [Lipitor] 40 mg PO HS 04/13/13 09/09/17 09/08/17 Gabapentin [Gralise] 800 mg PO TID 04/13/13 09/09/17 09/08/17 Abacavir/Dolutegravir/Lamivudi 1 each PO DAILY 07/10/15 09/09/17 09/08/17 [Triumeq Tablet] Amitriptyline [Elavil] 50 mg PO DAILY 09/09/17 09/09/17 09/08/17 Citalopram [Celexa] 20 mg PO QDAY 09/09/17 09/09/17 09/08/17 Omeprazole 20 mg PO DAILY 09/09/17 09/09/17 09/08/17 Zolpidem [Ambien] 10 mg PO QHS 09/09/17 09/09/17 09/08/17 Previous Rx's Medication Instructions Recorded Last Taken Type Ibuprofen [Motrin 800 MG tab] 800 mg PO Q8HR PRN #20 tablet 05/21/17 Unknown Rx Docusate Sodium [Colace] 100 mg PO BID PRN #60 capsule 09/15/17 Unknown Rx Insulin Glargine [Lantus VIAL] 40 units SUB-Q QHS 30 Days units 09/15/17 Unknown Rx Insulin Regular, Human [HumuLIN R] 10 units SUB-Q ACHS 30 Days units 09/15/17 Unknown Rx Ondansetron [Zofran Odt] 4 mg PO Q8HR #90 tab.rapdis 09/15/17 Unknown Rx Pantoprazole [Protonix TAB] 20 mg PO QDAY #30 tablet. 09/15/17 Unknown Rx oxyCODONE /ACETAMINOPHEN [Percocet 2 tab PO Q4H PRN #20 tablet 09/15/17 Unknown Rx 5/325 mg] oxyCODONE ER [OxyCONTIN ER TAB] 10 mg PO Q12HR #10 tablet 09/15/17 Unknown Rx Allergies/Adverse Reactions: Allergies Allergy/AdvReac Type Severity Reaction Status Date / Time iodine Allergy Swelling Verified 07/02/17 19:04 sulfamethoxazole Allergy Rash Verified 09/11/17 15:51 [From Bactrim] trimethoprim [From Bactrim] Allergy Rash Verified 09/11/17 15:51 metformin AdvReac Nausea Verified 07/02/17 19:04 seafood Allergy Rash Uncoded 07/02/17 19:04 ED Review of Systems ROS: Stated complaint: WOUND CHECK Other details as noted in HPI Constitutional: chills, fever ENT: denies: throat pain Respiratory: denies: cough, shortness of breath, SOB with exertion, SOB at rest , stridor, wheezing Cardiovascular: denies: chest pain, palpitations, edema, syncope Gastrointestinal: denies: abdominal pain, nausea, vomiting, diarrhea, constipation, hematemesis Genitourinary: denies: urgency, dysuria, discharge Musculoskeletal: arthralgia. denies: back pain, joint swelling Skin: other (redness and swelling with pain to right upper thigh). denies: rash , lesions Neurological: weakness. denies: headache, paresthesias, confusion, abnormal gait, vertigo ED Past Medical Hx - Past Medical History Previous Medical History?: Yes Hx Hypertension: Yes Hx Diabetes: Yes Hx Deep Vein Thrombosis: No Hx Psychiatric Treatment: Yes (anxiety depression) Hx Asthma: Yes Hx HIV: No Additional medical history: HIGH CHOLESTEROL - Surgical History Past Surgical History?: Yes Hx Pacemaker: No Hx Internal Defibrillator: No Hx Cholecystectomy: Yes Additional Surgical History: d&c x1, insulin pump placement, TOTAL HYSTERECTOMY , boil removal to R inner thigh - Family History Family history: hypertension - Social History Smoking Status: Current Every Day Smoker Substance Use Type: None - Medications Home Medications: Home Medications Medication Instructions Recorded Confirmed Last Taken Type ALPRAZolam [Xanax] 0.25 mg PO HS 04/13/13 09/09/17 09/08/17 History Atorvastatin [Lipitor] 40 mg PO HS 04/13/13 09/09/17 09/08/17 History Gabapentin [Gralise] 800 mg PO TID 04/13/13 09/09/17 09/08/17 History Abacavir/Dolutegravir/Lamivudi 1 each PO DAILY 07/10/15 09/09/17 09/08/17 History [Triumeq Tablet] Ibuprofen [Motrin 800 MG tab] 800 mg PO Q8HR PRN #20 tablet 05/21/17 09/09/17 Unknown Rx Amitriptyline [Elavil] 50 mg PO DAILY 09/09/17 09/09/17 09/08/17 History Citalopram [Celexa] 20 mg PO QDAY 09/09/17 09/09/17 09/08/17 History Omeprazole 20 mg PO DAILY 09/09/17 09/09/17 09/08/17 History Zolpidem [Ambien] 10 mg PO QHS 09/09/17 09/09/17 09/08/17 History Docusate Sodium [Colace] 100 mg PO BID PRN #60 capsule 09/15/17 Unknown Rx Insulin Glargine [Lantus VIAL] 40 units SUB-Q QHS 30 Days units 09/15/17 Unknown Rx Insulin Regular, Human [HumuLIN R] 10 units SUB-Q ACHS 30 Days units 09/15/17 Unknown Rx Ondansetron [Zofran Odt] 4 mg PO Q8HR #90 tab.rapdis 09/15/17 Unknown Rx Pantoprazole [Protonix TAB] 20 mg PO QDAY #30 tablet. 09/15/17 Unknown Rx oxyCODONE /ACETAMINOPHEN [Percocet 2 tab PO Q4H PRN #20 tablet 09/15/17 Unknown Rx 5/325 mg] oxyCODONE ER [OxyCONTIN ER TAB] 10 mg PO Q12HR #10 tablet 09/15/17 Unknown Rx ED Physical Exam - General Limitations: No Limitations General appearance: alert, in no apparent distress - Head Head exam: Present: atraumatic, normocephalic, normal inspection - Eye Eye exam: Present: normal appearance, PERRL, EOMI Pupils: Present: normal accommodation - ENT ENT exam: Present: normal exam, normal orophraynx, mucous membranes moist, TM's normal bilaterally, normal external ear exam - Neck Neck exam: Present: normal inspection, full ROM, other (no C-spine tenderness). Absent: tenderness, lymphadenopathy - Respiratory Respiratory exam: Present: normal lung sounds bilaterally. Absent: respiratory distress, chest wall tenderness - Cardiovascular Cardiovascular Exam: Present: normal rhythm, tachycardia. Absent: systolic murmur, diastolic murmur - GI/Abdominal GI/Abdominal exam: Present: soft, normal bowel sounds. Absent: distended, tenderness, guarding, rebound, rigid, organomegaly, mass, bruit, pulsatile mass - Extremities Exam Extremities exam: Present: normal inspection, full ROM, normal capillary refill , other (no clubbing, cyanosis or edema. +2 pulses all extremities and no neurovascular compromise. The skin section for details on the wound to right upper thigh). Absent: tenderness, pedal edema, joint swelling, calf tenderness - Back Exam Back exam: Present: normal inspection, full ROM. Absent: tenderness - Neurological Exam Neurological exam: Present: alert, oriented X3, normal gait, reflexes normal. Absent: motor sensory deficit - Psychiatric Psychiatric exam: Present: normal affect, normal mood - Skin Skin exam: Present: warm, dry, erythema, other (open wound to right upper, inner thigh) - Expanded Skin Exam Expanded Type of lesion: Present: other (open wound) Distribution of rash: RLE (right inner, upper thigh) Description of rash: Present: size (10 x 10 area of erythema with 4 x 6 cm area of open wound), tenderness, erythematous, swelling, discharge (scant amount of greenish discharge otherwise wound bed is clean). Absent: vesicular, blisters, fluctuant, indurated ED Course Vital Signs 10/14/17 10/14/17 10/14/17 13:01 18:52 19:04 Temperature 99 F 98.7 F Pulse Rate 135 H 100 H Respiratory 20 18 18 Rate Blood Pressure 157/104 Blood Pressure 127/72 [Right] O2 Sat by Pulse 98 100 Oximetry 10/14/17 10/14/17 20:48 20:50 Temperature 98.3 F Pulse Rate 104 H Respiratory 16 18 Rate Blood Pressure Blood Pressure 131/92 [Right] O2 Sat by Pulse 99 Oximetry - Reevaluation(s) Reevaluation #1: 10/14/17 18:[address] Dill who is patient's surgery and who did clean patient pulled out. He wants patient to be admitted by hospitalist and he will see patient in the morning and I discussed with the patient and she is in agreement. Patient also to get a CT scan of right thigh with IV contrast. She received IV fluid per Dr. Lee who evaluated patient and she is now on her second liters of IV fluid. She received morphine 400 g IV for right thigh pain , Zofran 8 mg IV to prevent nausea. Dr. Lee ordered Ancef 1 g IV and clindamycin 600 mg IV which patient received without any adverse reaction. I spoke with Dr. Gipson, and he wants to be called back when CT scan resulted. Reevaluation #2: 10/14/17 19:56 Patient is stable and pain is better. Awaiting CT scan results. Labs are stable. Vital signs are stable and she is afebrile. Reevaluation #3: 10/14/17 20:[address] Dill to gave him report of CT scan of the thigh with IV contrast which shows cellulitis without any abscess. He wants Dr. Vogel was infectious disease be consulted and also wound care nurse. Patient is aware of results and plans to admit. Pain is not relieved with morphine 4 mg and patient developed itching so she was given Benadryl 50 mg by mouth. To receive Percocet 5/325 2 tablets by mouth. - Consultations Consultation #1: 10/14/17 18:[address] Dill and he wants patient to be admitted by hospitalist. Consultation #2: 10/14/17 22:21 DR Vogel Infectious disease ED Medical Decision Making - Lab Data Result diagrams: 10/14/17 15:15 10/14/17 15:15 Lab Results 10/14/17 10/14/17 10/14/17 Range/Units 13:55 15:15 15:15 WBC 7.4 (4.5-11.0) K/mm3 RBC 3.96 (3.65-5.03) M/mm3 Hgb 12.1 (10.1-14.3) gm/dl Hct 36.6 (30.3-42.9) % MCV 92 (79-97) fl MCH 31 (28-32) pg MCHC 33 (30-34) % RDW 17.1 H (13.2-15.2) % Plt Count 193 (140-440) K/mm3 Lymph % (Auto) 31.3 (13.4-35.0) % [place] % (Auto) 6.5 (0.0-7.3) % Eos % (Auto) 2.7 (0.0-4.3) % Baso % (Auto) 0.1 (0.0-1.8) % Lymph # 2.3 (1.2-5.4) K/mm3 [place] # 0.5 (0.0-0.8) K/mm3 Eos # 0.2 (0.0-0.4) K/mm3 Baso # 0.0 (0.0-0.1) K/mm3 Seg Neutrophils % 59.4 (40.0-70.0) % Seg Neutrophils # 4.4 (1.8-7.7) K/mm3 PT 12.0 L (12.2-14.9) Sec. INR 0.85 L (0.87-1.13) VBG pH (7.320-7.420) Sodium (137-145) mmol/L Potassium (3.6-5.0) mmol/L Chloride (98-107) mmol/L Carbon Dioxide (22-30) mmol/L Anion Gap mmol/L BUN (7-17) mg/dL Creatinine (0.7-1.2) mg/dL Estimated GFR ml/min BUN/Creatinine Ratio % Glucose (65-100) mg/dL Ketones Quantitative (Negative) Lactic Acid (0.7-2.0) mmol/L Calcium (8.4-10.2) mg/dL Total Bilirubin (0.1-1.2) mg/dL AST (5-40) units/L ALT (7-56) units/L Alkaline Phosphatase (35-129) units/L Total Protein (6.3-8.2) g/dL Albumin (3.9-5) g/dL Albumin/Globulin Ratio % HCG, Qual (Negative) Urine Color Yellow (Yellow) Urine Turbidity Cloudy (Clear) Urine pH 5.0 (5.0-7.0) Ur Specific [place] 1.016 (1.003-1.030) Urine Protein 30 mg/dl (Negative) mg/dL Urine Glucose (UA) >=500 (Negative) mg/dL Urine Ketones Neg (Negative) mg/dL Urine Blood Neg (Negative) Urine Nitrite Pos (Negative) Urine Bilirubin Neg (Negative) Urine Urobilinogen < 2.0 (<2.0) mg/dL Ur Leukocyte Esterase Mod (Negative) Urine WBC (Auto) > 182.0 H (0.0-6.0) /HPF Urine RBC (Auto) 1.0 (0.0-6.0) /HPF U Epithel Cells (Auto) 11.0 (0-13.0) /HPF Urine Bacteria (Auto) 4+ (Negative) /HPF Urine Mucus Few /HPF 10/14/17 10/14/17 10/14/17 Range/Units 15:15 15:15 15:15 WBC (4.5-11.0) K/mm3 RBC (3.65-5.03) M/mm3 Hgb (10.1-14.3) gm/dl Hct (30.3-42.9) % MCV (79-97) fl MCH (28-32) pg MCHC (30-34) % RDW (13.2-15.2) % Plt Count (140-440) K/mm3 Lymph % (Auto) (13.4-35.0) % [place] % (Auto) (0.0-7.3) % Eos % (Auto) (0.0-4.3) % Baso % (Auto) (0.0-1.8) % Lymph # (1.2-5.4) K/mm3 [place] # (0.0-0.8) K/mm3 Eos # (0.0-0.4) K/mm3 Baso # (0.0-0.1) K/mm3 Seg Neutrophils % (40.0-70.0) % Seg Neutrophils # (1.8-7.7) K/mm3 PT (12.2-14.9) Sec. INR (0.87-1.13) VBG pH 7.360 (7.320-7.420) Sodium 138 (137-145) mmol/L Potassium 4.1 (3.6-5.0) mmol/L Chloride 97.5 L (98-107) mmol/L Carbon Dioxide 26 (22-30) mmol/L Anion Gap 19 mmol/L BUN 18 H (7-17) mg/dL Creatinine 0.7 (0.7-1.2) mg/dL Estimated GFR > 60 ml/min BUN/Creatinine Ratio 26 % Glucose 187 H (65-100) mg/dL Ketones Quantitative (Negative) Lactic Acid 1.10 (0.7-2.0) mmol/L Calcium 10.0 (8.4-10.2) mg/dL Total Bilirubin 0.30 (0.1-1.2) mg/dL AST 17 (5-40) units/L ALT 29 (7-56) units/L Alkaline Phosphatase 119 (35-129) units/L Total Protein 8.0 (6.3-8.2) g/dL Albumin 4.2 (3.9-5) g/dL Albumin/Globulin Ratio 1.1 % HCG, Qual (Negative) Urine Color (Yellow) Urine Turbidity (Clear) Urine pH (5.0-7.0) Ur Specific [place] (1.003-1.030) Urine Protein (Negative) mg/dL Urine Glucose (UA) (Negative) mg/dL Urine Ketones (Negative) mg/dL Urine Blood (Negative) Urine Nitrite (Negative) Urine Bilirubin (Negative) Urine Urobilinogen (<2.0) mg/dL Ur Leukocyte Esterase (Negative) Urine WBC (Auto) (0.0-6.0) /HPF Urine RBC (Auto) (0.0-6.0) /HPF U Epithel Cells (Auto) (0-13.0) /HPF Urine Bacteria (Auto) (Negative) /HPF Urine Mucus /HPF 10/14/17 10/14/17 Range/Units 17:41 17:41 WBC (4.5-11.0) K/mm3 RBC (3.65-5.03) M/mm3 Hgb (10.1-14.3) gm/dl Hct (30.3-42.9) % MCV (79-97) fl MCH (28-32) pg MCHC (30-34) % RDW (13.2-15.2) % Plt Count (140-440) K/mm3 Lymph % (Auto) (13.4-35.0) % [place] % (Auto) (0.0-7.3) % Eos % (Auto) (0.0-4.3) % Baso % (Auto) (0.0-1.8) % Lymph # (1.2-5.4) K/mm3 [place] # (0.0-0.8) K/mm3 Eos # (0.0-0.4) K/mm3 Baso # (0.0-0.1) K/mm3 Seg Neutrophils % (40.0-70.0) % Seg Neutrophils # (1.8-7.7) K/mm3 PT (12.2-14.9) Sec. INR (0.87-1.13) VBG pH (7.320-7.420) Sodium (137-145) mmol/L Potassium (3.6-5.0) mmol/L Chloride (98-107) mmol/L Carbon Dioxide (22-30) mmol/L Anion Gap mmol/L BUN (7-17) mg/dL Creatinine (0.7-1.2) mg/dL Estimated GFR ml/min BUN/Creatinine Ratio % Glucose (65-100) mg/dL Ketones Quantitative Negative (Negative) Lactic Acid (0.7-2.0) mmol/L Calcium (8.4-10.2) mg/dL Total Bilirubin (0.1-1.2) mg/dL AST (5-40) units/L ALT (7-56) units/L Alkaline Phosphatase (35-129) units/L Total Protein (6.3-8.2) g/dL Albumin (3.9-5) g/dL Albumin/Globulin Ratio % HCG, Qual Negative (Negative) Urine Color (Yellow) Urine Turbidity (Clear) Urine pH (5.0-7.0) Ur Specific [place] (1.003-1.030) Urine Protein (Negative) mg/dL Urine Glucose (UA) (Negative) mg/dL Urine Ketones (Negative) mg/dL Urine Blood (Negative) Urine Nitrite (Negative) Urine Bilirubin (Negative) Urine Urobilinogen (<2.0) mg/dL Ur Leukocyte Esterase (Negative) Urine WBC (Auto) (0.0-6.0) /HPF Urine RBC (Auto) (0.0-6.0) /HPF U Epithel Cells (Auto) (0-13.0) /HPF Urine Bacteria (Auto) (Negative) /HPF Urine Mucus /HPF Urine culture sent Wound culture sent - Radiology Data Radiology results: report reviewed CT scan of right thigh with IV contrast dictated by radiologist and report reviewed by myself. Please see report below. Cat Scan Report Signed Patient: POLINA SIMS MR#: [id number] : 1980 Acct:[id number] Age/Sex: 37 / F ADM Date: 10/14/17 Loc: ED Attending Dr: Ordering Physician: ELISEO GRANADOS Date of Service: 10/14/17 Procedure(s): CT lower extremity RT w con Accession Number(s): [id number] cc: ELISEO GRANADOS FINAL REPORT PROCEDURE: CT right lower extremity with contrast. TECHNIQUE: Computerized axial tomography of the RIGHT thigh was performed after the IV injection of iodinated nonionic contrast. HISTORY: Abscess, pain and fever. COMPARISON: No prior studies are available for comparison. FINDINGS: The bones appear intact. There are no signs of osteomyelitis. The surrounding muscles appear normal. There is some mild infiltration of the subcutaneous fat on the medial side of the thigh. There is also some skin thickening present. These findings are consistent with cellulitis. There are no fluid collections consistent with an abscess. There is a small ovoid mass in the subcutaneous tissues and skin of the anterior abdominal wall. This is located in the suprapubic region. This could represent a sebaceous cyst. Clinical correlation is suggested. IMPRESSION: Probable cellulitis involving the medial side of the right thigh. No evidence of an abscess. Transcribed By: [facility] Dictated By: JENARO LUCERO MD Electronically Authenticated By: JENARO LUCERO MD Signed Date/Time: 10/14/172002 DD/ 02 TD/TT: 10/14/172002 - Medical Decision Making This is a 37-year-old female with history of HIV positive followed by Dr. hand who is actually his doctor. She's been here previously for admission for abscess and went to OR for drainage of abscess that was done by Dr. Dill. Patient has been treated outpatient with IV antibiotic with visiting nurse and also she's been going to wound care center every Thursday. She saw Dr. Dill for follow-up visit 2 days ago and she said yesterday she developed fever , increased pain and redness around the wound site and she is here to be evaluated. Patient was seen and evaluated by myself. She was also screened by Dr. Lee. She had lab work done to include CBC, CMP, lactic acid, urinalysis and tests, venous pH, PT/PTT which were stable except she has urinary tract infection with positive nitrites, positive white blood cell, positive bacteria and leukocyte Estrace. Urine culture sent and pending. Wound cultures are pending. Blood culture sent and pending. Serum blood sugar was at 187. She also had CT scan with IV contrast of right thigh per Dr. Dill who is surgeon and this came back positive for cellulitis without any abscess. Lab results and CAT scan result related to patient and she voiced understanding. Patient pain is controlled with pain medication. She had episode of itching after receiving morphine and she received Benadryl 50 mg IV which relieved her itching. A/P 1: Cellulitis right thigh-patient and incision and drainage recently and surgery and completed outpatient antibiotic. Patient started on Ancef 1 g IV and clindamycin [address] scan shows cellulitis without abscess. Dr. Dill and Dr. Vogel to see patient as inpatient tomorrow. Patient to be admitted by hospitalist. Dr. Harvey. admit the patient. CBC stable, CMP is stable, lactic acid normal. Blood cultures pending. 2: Open wound right thigh-culture pending, wound care consulted 3: Acute cystitis without hematuria-urine culture pending. Patient started on Ancef which will cover her UTI and hospitalist will continue antibiotic treatment. 4: Right thigh pain-patient given morphine 4 mg IV and Zofran 8 mg IV. She still had pain since she was given additional Percocet 5/325 mg 2 tablets by mouth which relieved her pain. 5: Tachycardia-Better it would IV fluid. 6-hyperglycemia in diabetes type 1-glucose is 187 ,patient receive IV fluid normal saline 2 L. We'll reevaluate her blood sugar. Hospitalist will restart insulin 7: Fever-resolved Patient to be admitted inpatient and was seen by Dr. Harvey was hospitalist who admitted patient. Dr. Dill surgery, Dr. Vogel infectious disease and wound care consulted. Her pain is controlled. Vital signs are stable and she is afebrile at present and nontoxic in appearance. Patient updated on all her labs and she was informed that she'll be admitted and she agrees. Patient is awaiting hospital bed. She was medicated on medication, treatment plan and beers diagnosis that she voiced understanding - Differential Diagnosis sepsis, abscess versus cellulitis Critical care attestation.: If time is entered above; I have spent that time in minutes in the direct care of this critically ill patient, excluding procedure time. ED Disposition Clinical Impression: Cellulitis of right thigh, History of human immunodeficiency virus infection, Arthralgia of right thigh, Fever in adult, Acute cystitis without hematuria, Tachycardia, Hyperglycemia due to type 1 diabetes mellitus Open wound of right thigh Qualifiers: Encounter type: subsequent encounter Qualified Code(s): S71.101D - Unspecified open wound, right thigh, subsequent encounter Disposition: DC-09 OP ADMIT IP TO THIS HOSP Is pt being admited?: Yes Does the pt Need Aspirin: No Condition: Stable Referrals: PRIMARY CARE,MD [Primary Care Provider] - 3-5 Days
[2017-10-14] MEDS ORDERED: ZOFRAN IV ONE (18:52)
[2017-10-14] MEDS ORDERED: MORPHINE IV ONE (18:52)
[2017-10-14] MEDS ORDERED: BENADRYL IV ONE (19:46)
--- NOTE | 2017-10-14 20:08 | Cat Scan Report ---
FINAL REPORT PROCEDURE: CT right lower extremity with contrast. TECHNIQUE: Computerized axial tomography of the RIGHT thigh was performed after the IV injection of iodinated nonionic contrast. HISTORY: Abscess, pain and fever. COMPARISON: No prior studies are available for comparison. FINDINGS: The bones appear intact. There are no signs of osteomyelitis. The surrounding muscles appear normal. There is some mild infiltration of the subcutaneous fat on the medial side of the thigh. There is also some skin thickening present. These findings are consistent with cellulitis. There are no fluid collections consistent with an abscess. There is a small ovoid mass in the subcutaneous tissues and skin of the anterior abdominal wall. This is located in the suprapubic region. This could represent a sebaceous cyst. Clinical correlation is suggested. IMPRESSION: Probable cellulitis involving the medial side of the right thigh. No evidence of an abscess.
[2017-10-14] MEDS ORDERED: PERCOCET 5/325 ONE (20:34)
[2017-10-14] MEDS ORDERED: PERCOCET 5/325 PO ONE (20:36)
[2017-10-14] MEDS ORDERED: D50W (25GM) Syringe IV PRN (21:42)
[2017-10-14] MEDS ORDERED: ZOFRAN IV PRN (21:42)
[2017-10-14] MEDS ORDERED: TYLENOL PO PRN (21:42)
[2017-10-14] MEDS ORDERED: PERCOCET 5/325 PO PRN (21:42)
[2017-10-14] MEDS ORDERED: SODIUM CHLORIDE FLUSH SYRINGE 10 ML IV PRN (21:42)
--- NOTE | 2017-10-14 21:47 | History and Physical Report ---
History of Present Illness Date of examination: 10/14/17 History of present illness: 37-year-old woman with history of HIV, hypertension, diabetes, hyperlipidemia, asthma, anxiety comes to emergency room for evaluation of her wound. She is status post debridement, incision and drainage on September 09, wound VAC was removed one week ago and she has completed her outpatient antibiotic. She stated that 2 days ago she noticed redness around the wound and she had a fever of 101.2 last night Review of systems Constitutional: no weight loss, chills Ears, eyes, nose, mouth and throat: no nasal congestion, no nasal discharge, no sinus pressure, no vision change, no red eye. Neck: No neck pain or rigidity. Cardiovascular: no chest pain, palpitations Respiratory: no cough, shortness of breath Gastrointestinal: no abdominal pain hematochezia Genitourinary : no frequency , no hematuria Musculoskeletal: no joint swelling or muscle ache Integumentary: no rash, no pruritis Neurological: no parathesias, no numbness, no focal weakness Endocrine: no cold or heat intolerance, no polyuria or polydipsia Hematologic/Lymphatic: no easy bruising, no easy bleeding, no gland swelling Allergic/Immunologic: no urticaria, no angioedema. PAST MEDICAL HISTORY: HIV, hypertension, diabetes, hyperlipidemia, asthma, anxiety PAST SURGICAL HISTORY: Hysterectomy, cholecystectomy SOCIAL HISTORY: No alcohol, no drugs, smokes half pack a day FAMILY HISTORY: Hypertension, Diabetes Medications and Allergies Allergies Allergy/AdvReac Type Severity Reaction Status Date / Time iodine Allergy Swelling Verified 07/02/17 19:04 sulfamethoxazole Allergy Rash Verified 09/11/17 15:51 [From Bactrim] trimethoprim [From Bactrim] Allergy Rash Verified 09/11/17 15:51 metformin AdvReac Nausea Verified 07/02/17 19:04 seafood Allergy Rash Uncoded 07/02/17 19:04 Home Medications Medication Instructions Recorded Confirmed Last Taken Type ALPRAZolam [Xanax] 0.25 mg PO HS 04/13/13 09/09/17 09/08/17 History Atorvastatin [Lipitor] 40 mg PO HS 04/13/13 09/09/17 09/08/17 History Gabapentin [Gralise] 800 mg PO TID 04/13/13 09/09/17 09/08/17 History Abacavir/Dolutegravir/Lamivudi 1 each PO DAILY 07/10/15 09/09/17 09/08/17 History [Triumeq Tablet] Ibuprofen [Motrin 800 MG tab] 800 mg PO Q8HR PRN #20 tablet 05/21/17 09/09/17 Unknown Rx Amitriptyline [Elavil] 50 mg PO DAILY 09/09/17 09/09/17 09/08/17 History Citalopram [Celexa] 20 mg PO QDAY 09/09/17 09/09/17 09/08/17 History Omeprazole 20 mg PO DAILY 09/09/17 09/09/17 09/08/17 History Zolpidem [Ambien] 10 mg PO QHS 09/09/17 09/09/17 09/08/17 History Docusate Sodium [Colace] 100 mg PO BID PRN #60 capsule 09/15/17 Unknown Rx Insulin Glargine [Lantus VIAL] 40 units SUB-Q QHS 30 Days units 09/15/17 Unknown Rx Insulin Regular, Human [HumuLIN R] 10 units SUB-Q ACHS 30 Days units 09/15/17 Unknown Rx Ondansetron [Zofran Odt] 4 mg PO Q8HR #90 tab.rapdis 09/15/17 Unknown Rx Pantoprazole [Protonix TAB] 20 mg PO QDAY #30 tablet. 09/15/17 Unknown Rx oxyCODONE /ACETAMINOPHEN [Percocet 2 tab PO Q4H PRN #20 tablet 09/15/17 Unknown Rx 5/325 mg] oxyCODONE ER [OxyCONTIN ER TAB] 10 mg PO Q12HR #10 tablet 09/15/17 Unknown Rx Exam - Physical Exam Narrative exam: Gen. appearance: Patient lying in bed, no apparent distress HEENT: Normocephalic, atraumatic, pupils equally round and reactive to light, extraocular movement intact, and no sclericterus,. No JVD or thyromegaly or nodule,neck supple, no carotid bruit ,mucous membranes moist, no exudate or erythema Heart: S1, S2, regular rate and rhythm Lungs: Clear bilaterally, breathing comfortable Abdomen: Positive bowel sounds, non-tender, nondistended, no organomegaly Extremity:no edema cyanosis, clubbing Skin: Right thigh/groin wound clean, no purulent discharge noted, mild erythema, tender to touch, dry no rash, warm Neuro: Oriented 3, cranial nerves II-12 intact, speech is fluent, motor and sensory intact - Constitutional Vitals: Temp Pulse Resp BP Pulse Ox 98.3 F 104 H 18 131/92 99 10/14/17 20:50 10/14/17 20:50 10/14/17 20:50 10/14/17 20:50 10/14/17 20:50 Results - Labs CBC & Chem 7: 10/14/17 15:15 10/14/17 15:15 Labs: Abnormal lab results 10/14/17 10/14/17 10/14/17 Range/Units 13:55 15:15 15:15 RDW 17.1 H (13.2-15.2) % PT 12.0 L (12.2-14.9) Sec. INR 0.85 L (0.87-1.13) Chloride (98-107) mmol/L BUN (7-17) mg/dL Glucose (65-100) mg/dL Urine WBC (Auto) > 182.0 H (0.0-6.0) /HPF 10/14/17 Range/Units 15:15 RDW (13.2-15.2) % PT (12.2-14.9) Sec. INR (0.87-1.13) Chloride 97.5 L (98-107) mmol/L BUN 18 H (7-17) mg/dL Glucose 187 H (65-100) mg/dL Urine WBC (Auto) (0.0-6.0) /HPF Assessment and Plan CT of the lower extremity reviewed Assessment Cellulitis of the right thigh UTI Hypertension Diabes hyperlipidemia Asthma HIV Plan Admit to medicine Start IV Zosyn, follow cultures, consult surgery Check fingersticks and initiate insulin sinus scale Continue appropriate outpatient medications DVT prophylaxis
[2017-10-14] MEDS: SODIUM CHLORIDE FLUSH SYRINGE 10 ML IV SCH (22:14)
[2017-10-14] MEDS: HumaLOG SUB-Q SCH (22:14)
[2017-10-14] MEDS ORDERED: COLACE PO PRN (22:28)
[2017-10-15] MEDS: PERCOCET 5/325 PO PRN ×4 (01:39→18:31)
[2017-10-15] MEDS: LANTUS SUB-Q SCH ×2 (01:40→22:09)
[2017-10-15] MEDS: BENADRYL IV PRN ×3 (04:26→20:18)
[2017-10-15] MEDS: HumaLOG SUB-Q SCH ×3 (07:30→16:30)
[2017-10-15] MEDS ORDERED: GABAPENTIN 800 MG PO SCH (08:00)
[2017-10-15] MEDS: NEURONTIN PO SCH ×3 (08:00→22:09)
[2017-10-15] MEDS ORDERED: LOVENOX SUB-Q SCH (10:00)
[2017-10-15] MEDS ORDERED: NON-FORMULARY (Omeprazole [Omeprazole] 20 MG) PO SCH (10:00)
[2017-10-15] MEDS ORDERED: NON-FORMULARY (Abacavir/Dolutegravir/Lamivudi [Triumeq Tablet] 1 EACH) PO SCH (10:00)
[2017-10-15 10:03] LABS: Basophils % (Auto) 0.2 % (0.0-1.8); Eosinophils # (Auto) 0.2 K/mm3 (0.0-0.4); Eosinophils % (Auto) 3.9 % (0.0-4.3); Hematocrit 32.5 % (30.3-42.9); Hemoglobin 10.8 gm/dl (10.1-14.3); Lymphocytes # (Auto) 2.2 K/mm3 (1.2-5.4); Lymphocytes % (Auto) 35.7 % (13.4-35.0); Mean Corpuscular HGB Conc 33 % (30-34); Mean Corpuscular Hemoglobin 31 pg (28-32); Mean Corpuscular Volume 94 fl (79-97); Monocytes # (Auto) 0.5 K/mm3 (0.0-0.8); Monocytes % (Auto) 7.9 % (0.0-7.3); Platelet Count 182 K/mm3 (140-440); Red Blood Count 3.46 M/mm3 (3.65-5.03)
[2017-10-15 10:19] LABS: BUN/Creatinine Ratio 24; Blood Urea Nitrogen 17 mg/dL (7-17); Calcium 9.4 mg/dL (8.4-10.2); Hemolysis Index 10
[2017-10-15] MEDS: ELAVIL PO SCH (10:44)
[2017-10-15] MEDS: LOVENOX SUB-Q SCH (10:44)
[2017-10-15] MEDS: PROTONIX PO SCH (10:46)
[2017-10-15] MEDS: celeXA PO SCH (10:46)
[2017-10-15] MEDS: SODIUM CHLORIDE FLUSH SYRINGE 10 ML IV SCH ×2 (10:46→22:07)
--- NOTE | 2017-10-15 11:45 | Progress Note ---
Assessment and Plan Assessment and plan: --Cellulitis of the right thigh/groin Empiric antibiotics, wound care and wound cultures, supportive care --UTI; follow cultures, continue empiric antibiotics, IV fluids --Hypertension; moderate control, continue current antihypertensives and when necessary medications -- type 2 diabetes mellitus; Accu-Cheks and hemoglobin ADA diet and longer acting insulin . --hyperlipidemia; continue statin low-cholesterol diet --History of Asthma; oxygen nebulizers and steroids as needed --HIV; continue current antiretrovirals, supportive care, ID evaluation if needed --DVT prophylaxis with Lovenox Closely monitor the patient and distal management as needed Plan of care is reviewed with the patient and her History Interval history: patient seen and examined medical records reviewed Complaints of generalized body pains and ask for pain medication Denies any chest pain or shortness of breath Vital signs reviewed Hospitalist Physical - Constitutional Vitals: Temp Pulse Resp BP Pulse Ox 98.8 F 94 H 18 132/76 98 10/15/17 00:15 10/15/17 00:15 10/15/17 00:15 10/15/17 00:15 10/15/17 00:15 General appearance: Present: no acute distress, well-nourished, obese (morbidly obese) - EENT Eyes: Present: PERRL, EOM intact - Neck Neck: Present: supple, normal ROM - Respiratory Respiratory effort: normal Respiratory: bilateral: diminished, negative: rales, rhonchi, wheezing - Cardiovascular Rhythm: regular Heart Sounds: Present: S1 & S2 - Extremities Extremities: no ischemia, No edema - Abdominal General gastrointestinal: soft, non-tender, non-distended, normal bowel sounds - Integumentary Integumentary: Present: clear, warm, erythema (groin wound, red dry and healthy , with mild discharge) - Psychiatric Psychiatric: appropriate mood/affect, cooperative - Neurologic Neurologic: CNII-XII intact, moves all extremities Results - Labs CBC & Chem 7: 10/15/17 08:25 10/15/17 08:25 Labs: Laboratory Last Values WBC 6.1 K/mm3 (4.5-11.0) 10/15/17 08:25 RBC 3.46 M/mm3 (3.65-5.03) L 10/15/17 08:25 Hgb 10.8 gm/dl (10.1-14.3) 10/15/17 08:25 Hct 32.5 % (30.3-42.9) 10/15/17 08:25 MCV 94 fl (79-97) 10/15/17 08:25 MCH 31 pg (28-32) 10/15/17 08:25 MCHC 33 % (30-34) 10/15/17 08:25 RDW 17.0 % (13.2-15.2) H 10/15/17 08:25 Plt Count 182 K/mm3 (140-440) 10/15/17 08:25 Lymph % (Auto) 35.7 % (13.4-35.0) H 10/15/17 08:25 [place] % (Auto) 7.9 % (0.0-7.3) H 10/15/17 08:25 Eos % (Auto) 3.9 % (0.0-4.3) 10/15/17 08:25 Baso % (Auto) 0.2 % (0.0-1.8) 10/15/17 08:25 Lymph # 2.2 K/mm3 (1.2-5.4) 10/15/17 08:25 [place] # 0.5 K/mm3 (0.0-0.8) 10/15/17 08:25 Eos # 0.2 K/mm3 (0.0-0.4) 10/15/17 08:25 Baso # 0.0 K/mm3 (0.0-0.1) 10/15/17 08:25 Seg Neutrophils % 52.3 % (40.0-70.0) 10/15/17 08:25 Seg Neutrophils # 3.2 K/mm3 (1.8-7.7) 10/15/17 08:25 PT 12.0 Sec. (12.2-14.9) L 10/14/17 15:15 INR 0.85 (0.87-1.13) L 10/14/17 15:15 VBG pH 7.360 (7.320-7.420) 10/14/17 15:15 Sodium 136 mmol/L (137-145) L 10/15/17 08:25 Potassium 4.3 mmol/L (3.6-5.0) 10/15/17 08:25 Chloride 96.9 mmol/L (98-107) L 10/15/17 08:25 Carbon Dioxide 28 mmol/L (22-30) 10/15/17 08:25 Anion Gap 15 mmol/L 10/15/17 08:25 BUN 17 mg/dL (7-17) 10/15/17 08:25 Creatinine 0.7 mg/dL (0.7-1.2) 10/15/17 08:25 Estimated GFR > 60 ml/min 10/15/17 08:25 BUN/Creatinine Ratio 24 % 10/15/17 08:25 Glucose 253 mg/dL (65-100) H 10/15/17 08:25 Ketones Quantitative Negative (Negative) 10/14/17 17:41 Lactic Acid 1.10 mmol/L (0.7-2.0) 10/14/17 15:15 Calcium 9.4 mg/dL (8.4-10.2) 10/15/17 08:25 Total Bilirubin 0.30 mg/dL (0.1-1.2) 10/14/17 15:15 AST 17 units/L (5-40) 10/14/17 15:15 ALT 29 units/L (7-56) 10/14/17 15:15 Alkaline Phosphatase 119 units/L (35-129) 10/14/17 15:15 Total Protein 8.0 g/dL (6.3-8.2) 10/14/17 15:15 Albumin 4.2 g/dL (3.9-5) 10/14/17 15:15 Albumin/Globulin Ratio 1.1 % 10/14/17 15:15 HCG, Qual Negative (Negative) 10/14/17 17:41 Urine Color Yellow (Yellow) 10/14/17 13:55 Urine Turbidity Cloudy (Clear) 10/14/17 13:55 Urine pH 5.0 (5.0-7.0) 10/14/17 13:55 Ur Specific [place] 1.016 (1.003-1.030) 10/14/17 13:55 Urine Protein 30 mg/dl mg/dL (Negative) 10/14/17 13:55 Urine Glucose (UA) >=500 mg/dL (Negative) 10/14/17 13:55 Urine Ketones Neg mg/dL (Negative) 10/14/17 13:55 Urine Blood Neg (Negative) 10/14/17 13:55 Urine Nitrite Pos (Negative) 10/14/17 13:55 Urine Bilirubin Neg (Negative) 10/14/17 13:55 Urine Urobilinogen < 2.0 mg/dL (<2.0) 10/14/17 13:55 Ur Leukocyte Esterase Mod (Negative) 10/14/17 13:55 Urine WBC (Auto) > 182.0 /HPF (0.0-6.0) H 10/14/17 13:55 Urine RBC (Auto) 1.0 /HPF (0.0-6.0) 10/14/17 13:55 U Epithel Cells (Auto) 11.0 /HPF (0-13.0) 10/14/17 13:55 Urine Bacteria (Auto) 4+ /HPF (Negative) 10/14/17 13:55 Urine Mucus Few /HPF 10/14/17 13:55
--- NOTE | 2017-10-15 15:02 | Consultation ---
History of Present Illness Consult date: 10/15/17 Reason for consult: wound care Requesting physician: AUGUSTA WHITTINGTON Chief complaint: Painful right thigh wound - History of present illness History of present illness: 37-year-old female with a history of HIV was well-known for service presented to the ER yesterday with complaints of fever and right thigh swelling, pain, drainage. She was recently admitted for a necrotizing fasciitis infection involving an adjacent area. Incision and drainage have been performed and she was getting care at the wound care clinic. Recently, her wound VAC was discontinued as the wound has shown significant progress in healing. Unfortunately, yesterday, she had a fever of 102 and reported drainage and pain from her right thigh. She was advised by the wound care center to proceed to the emergency room. CT scan done at the right time showed only cellulitis. There was no fluid collection. She reports that she recently had a small bubble underneath the skin that drained through the open wound. She was also found to have a UTI. Past History Past Medical History: diabetes, HIV/AIDS, hypertension, hyperlipidemia, other ( asthma, anxiety) Past Surgical History: cholecystectomy, hysterectomy, Other (Right thigh I&D) Social history: smoking. denies: alcohol abuse, prescription drug abuse, IV drug use Family history: diabetes, hypertension Medications and Allergies Allergies Allergy/AdvReac Type Severity Reaction Status Date / Time iodine Allergy Swelling Verified 07/02/17 19:04 sulfamethoxazole Allergy Rash Verified 09/11/17 15:51 [From Bactrim] trimethoprim [From Bactrim] Allergy Rash Verified 09/11/17 15:51 metformin AdvReac Nausea Verified 07/02/17 19:04 seafood Allergy Rash Uncoded 07/02/17 19:04 Home Medications Medication Instructions Recorded Confirmed Last Taken Type ALPRAZolam [Xanax] 0.25 mg PO HS 04/13/13 09/09/17 09/08/17 History Atorvastatin [Lipitor] 40 mg PO HS 04/13/13 09/09/17 09/08/17 History Gabapentin [Gralise] 800 mg PO TID 04/13/13 09/09/17 09/08/17 History Abacavir/Dolutegravir/Lamivudi 1 each PO DAILY 07/10/15 09/09/17 09/08/17 History [Triumeq Tablet] Ibuprofen [Motrin 800 MG tab] 800 mg PO Q8HR PRN #20 tablet 05/21/17 09/09/17 Unknown Rx Amitriptyline [Elavil] 50 mg PO DAILY 09/09/17 09/09/17 09/08/17 History Citalopram [Celexa] 20 mg PO QDAY 09/09/17 09/09/17 09/08/17 History Omeprazole 20 mg PO DAILY 09/09/17 09/09/17 09/08/17 History Zolpidem [Ambien] 10 mg PO QHS 09/09/17 09/09/17 09/08/17 History Docusate Sodium [Colace] 100 mg PO BID PRN #60 capsule 09/15/17 Unknown Rx Insulin Glargine [Lantus VIAL] 40 units SUB-Q QHS 30 Days units 09/15/17 Unknown Rx Insulin Regular, Human [HumuLIN R] 10 units SUB-Q ACHS 30 Days units 09/15/17 Unknown Rx Ondansetron [Zofran Odt] 4 mg PO Q8HR #90 tab.rapdis 09/15/17 Unknown Rx Pantoprazole [Protonix TAB] 20 mg PO QDAY #30 tablet. 09/15/17 Unknown Rx oxyCODONE /ACETAMINOPHEN [Percocet 2 tab PO Q4H PRN #20 tablet 09/15/17 Unknown Rx 5/325 mg] oxyCODONE ER [OxyCONTIN ER TAB] 10 mg PO Q12HR #10 tablet 09/15/17 Unknown Rx Active Meds: Active Medications Acetaminophen (Tylenol) 650 mg PO Q4H PRN PRN Reason: Pain MILD(1-3)/Fever >100.5/[place] Alprazolam (Xanax) 0.25 mg PO HS [facility] Amitriptyline HCl (Elavil) 50 mg PO DAILY [facility] Last Admin: 10/15/17 10:44 Dose: 50 mg Atorvastatin Calcium (Lipitor) 40 mg PO HS [facility] Citalopram Hydrobromide (Celexa) 20 mg PO QDAY [facility] Last Admin: 10/15/17 10:46 Dose: 20 mg Dextrose (D50w (25gm) Syringe) 50 ml IV PRN PRN PRN Reason: Hypoglycemia Diphenhydramine HCl (Benadryl) 25 mg IV Q6H PRN PRN Reason: Itching Last Admin: 10/15/17 10:41 Dose: 25 mg Docusate Sodium (Colace) 100 mg PO BID PRN PRN Reason: Pain Enoxaparin Sodium (Lovenox) 40 mg SUB-Q QDAY@1000 [facility] Last Admin: 10/15/17 10:44 Dose: 40 mg Gabapentin (Neurontin) 800 mg PO TID [facility] Last Admin: 10/15/17 13:01 Dose: 800 mg Insulin Glargine (Lantus) 40 units SUB-Q QHS [facility] Last Admin: 10/15/17 01:40 Dose: 40 units Insulin Human Lispro (Humalog) 0 unit SUB-Q [facility]; Protocol Last Admin: 10/15/17 11:30 Dose: 4 unit Miscellaneous Medication (Abacavir/Dolutegravir/Lamivudi [Triumeq Tablet]) 1 each PO DAILY [facility] Ondansetron HCl (Zofran) 4 mg IV Q8H PRN PRN Reason: Nausea And Vomiting Oxycodone/Acetaminophen (Percocet 5/325) 2 tab PO Q4H PRN PRN Reason: Pain, Moderate (4-6) Last Admin: 10/15/17 13:01 Dose: 2 tab Pantoprazole Sodium (Protonix) 20 mg PO QDAY [facility] Last Admin: 10/15/17 10:46 Dose: 20 mg Sodium Chloride (Sodium Chloride Flush Syringe 10 Ml) 10 ml IV BID [facility] Last Admin: 10/15/17 10:46 Dose: 10 ml Sodium Chloride (Sodium Chloride Flush Syringe 10 Ml) 10 ml IV PRN PRN PRN Reason: LINE FLUSH Zolpidem Tartrate (Ambien) 10 mg PO QHS [facility] Review of Systems - Constitutional fever, no chills, no sweats, no night sweats, no chronic pain - Cardiovascular no chest pain - Respiratory no cough, no shortness of breath, no dyspnea on exertion - Gastrointestinal no abdominal pain, no nausea, no vomiting - Genitourinary Genitourinary: dysuria - Muskuloskeletal right: other (right upper, inner thigh pain) - Integumentary rash, wounds, darkening of skin - Psychiatric anxiety - Hematologic/Lymphatic no easy bruising, no easy bleeding Exam Vital Signs Temp Pulse Resp BP Pulse Ox 99 F 135 H 20 157/104 98 10/14/17 13:01 10/14/17 13:01 10/14/17 13:01 10/14/17 13:01 10/14/17 13:01 - General physical appearance Positive: well developed, well nourished, no distress, no pain, other (does not appear toxic) - Eyes Positive: normal occular movement - Respiratory Positive: normal expansion, normal respiratory effort - Cardiovascular Rhythm: regular - Extremities Extremity abnormal: tenderness (noted over medial thigh. Area has a purplish discoloration. Measures 71q40ol. No active drainage noted from open wound. No fluctuant area found. Area marked out. ) - Genitourinary Female Genitourinary: other (right vulva is swollen and has mild erythema) - Neurologic Neurologic: alert and oriented to time, place and person, motor strength and sensation are grossly intact - Psychiatric Psychiatric: appropriate mood/affect, intact judgment & insight, cooperative Results - Labs 10/15/17 08:25 10/15/17 08:25 Abnormal lab results 10/14/17 10/14/17 10/14/17 Range/Units 15:15 15:15 15:15 RBC (3.65-5.03) M/mm3 RDW 17.1 H (13.2-15.2) % Lymph % (Auto) (13.4-35.0) % [place] % (Auto) (0.0-7.3) % PT 12.0 L (12.2-14.9) Sec. INR 0.85 L (0.87-1.13) Sodium (137-145) mmol/L Chloride 97.5 L (98-107) mmol/L BUN 18 H (7-17) mg/dL Glucose 187 H (65-100) mg/dL 10/15/17 10/15/17 Range/Units 08:25 08:25 RBC 3.46 L (3.65-5.03) M/mm3 RDW 17.0 H (13.2-15.2) % Lymph % (Auto) 35.7 H (13.4-35.0) % [place] % (Auto) 7.9 H (0.0-7.3) % PT (12.2-14.9) Sec. INR (0.87-1.13) Sodium 136 L (137-145) mmol/L Chloride 96.9 L (98-107) mmol/L BUN (7-17) mg/dL Glucose 253 H (65-100) mg/dL Diabetes panel 10/14/17 10/15/17 Range/Units 15:15 08:25 Sodium 138 136 L (137-145) mmol/L Potassium 4.1 4.3 (3.6-5.0) mmol/L Chloride 97.5 L 96.9 L (98-107) mmol/L Carbon Dioxide 26 28 (22-30) mmol/L BUN 18 H 17 (7-17) mg/dL Creatinine 0.7 0.7 (0.7-1.2) mg/dL Glucose 187 H 253 H (65-100) mg/dL Calcium 10.0 9.4 (8.4-10.2) mg/dL AST 17 (5-40) units/L ALT 29 (7-56) units/L Alkaline Phosphatase 119 (35-129) units/L Total Protein 8.0 (6.3-8.2) g/dL Albumin 4.2 (3.9-5) g/dL Calcium panel 10/14/17 10/15/17 Range/Units 15:15 08:25 Calcium 10.0 9.4 (8.4-10.2) mg/dL Albumin 4.2 (3.9-5) g/dL Pituitary panel 10/14/17 10/15/17 Range/Units 15:15 08:25 Sodium 138 136 L (137-145) mmol/L Potassium 4.1 4.3 (3.6-5.0) mmol/L Chloride 97.5 L 96.9 L (98-107) mmol/L Carbon Dioxide 26 28 (22-30) mmol/L BUN 18 H 17 (7-17) mg/dL Creatinine 0.7 0.7 (0.7-1.2) mg/dL Glucose 187 H 253 H (65-100) mg/dL Calcium 10.0 9.4 (8.4-10.2) mg/dL Adrenal panel 10/14/17 10/15/17 Range/Units 15:15 08:25 Sodium 138 136 L (137-145) mmol/L Potassium 4.1 4.3 (3.6-5.0) mmol/L Chloride 97.5 L 96.9 L (98-107) mmol/L Carbon Dioxide 26 28 (22-30) mmol/L BUN 18 H 17 (7-17) mg/dL Creatinine 0.7 0.7 (0.7-1.2) mg/dL Glucose 187 H 253 H (65-100) mg/dL Calcium 10.0 9.4 (8.4-10.2) mg/dL Total Bilirubin 0.30 (0.1-1.2) mg/dL AST 17 (5-40) units/L ALT 29 (7-56) units/L Alkaline Phosphatase 119 (35-129) units/L Total Protein 8.0 (6.3-8.2) g/dL Albumin 4.2 (3.9-5) g/dL - Imaging Additional studies: Reviewed report and images of CT of RLE Assessment and Plan - Patient Problems (1) Cellulitis of right thigh Current Visit: Yes Status: Acute Plan to address problem: Patient stable. At this time, there is no indication for any surgical intervention. I have marked out the area of erythema. We will follow closely. If it is getting worse despite antibiotics then we will reconsider surgical intervention. In the meantime, I think she would benefit from an infectious disease consult. She has had multiple infections in her history. Perhaps she would benefit from prolonged antibiotics. I reviewed the wound care notes. I appreciate the consult. Will follow their recommendations. Will follow along. Please call with questions. Time=30min
[2017-10-15] MEDS ORDERED: VANCOMYCIN/NS 1 GM/250 ML 1 GM/250 ML BAG IV SCH (18:00)
[2017-10-15] MEDS ORDERED: VANCOMYCIN PHARMACY TO DOSE IV SCH ×2 (18:00)
[2017-10-15] MEDS: ZOSYN/NS 4.5GM/100ML 4.5 GM/100 ML VIAL IV SCH (20:11)
[2017-10-15] MEDS: VANCOMYCIN 1,750 MG in NACL 0.9% 500 ML 500 ML IV SCH (20:12)
[2017-10-15] MEDS: AMBIEN PO SCH (22:09)
[2017-10-15] MEDS: XANAX PO SCH (22:09)
[2017-10-16] MEDS: PERCOCET 5/325 PO PRN ×5 (00:06→22:47)
[2017-10-16] MEDS: HumaLOG SUB-Q SCH ×7 (00:07→22:59)
[2017-10-16] MEDS: ZOSYN/NS 4.5GM/100ML 4.5 GM/100 ML VIAL IV SCH ×3 (03:43→22:51)
[2017-10-16] MEDS: BENADRYL IV PRN ×3 (06:46→22:48)
--- NOTE | 2017-10-16 09:32 | Progress Note ---
Assessment and Plan Assessment and plan: --Cellulitis of the right thigh/groin; staph aureus Continue Vanco and Zosyn follow sensitivities, wound care --UTI; gram-negative rods, possible Escherichia coli, on Zosyn follow sensitivities May DC patient on Cipro and clindamycin in 1-2 days --Hypertension; moderate control, continue current antihypertensives and when necessary medications -- type 2 diabetes mellitus; Accu-Cheks and hemoglobin ADA diet and longer acting insulin . Patient's hemoglobin A1c 15.3 last month patient strongly advised to adhere to the treatment plan. Insulin, diet and exercise as tolerated --hyperlipidemia; continue statin low-cholesterol diet --History of Asthma; oxygen nebulizers and steroids as needed --HIV; continue current antiretrovirals, supportive care, ID evaluation if needed --DVT prophylaxis with Lovenox Closely monitor the patient and distal management as needed Plan of care is reviewed with the patient and her DC in 1-2 days in stable History Interval history: Patient seen and examined medical records reviewe no new events reported by the nursing staff Alert awake oriented 3 no new complaints Vital signs reviewed Hospitalist Physical - Constitutional Vitals: Temp Pulse Resp BP Pulse Ox 98.4 F 91 H 20 114/62 94 10/15/17 17:42 10/15/17 17:42 10/15/17 17:42 10/15/17 17:42 10/15/17 17:42 General appearance: Present: no acute distress, well-nourished, obese (morbidly obese) - EENT Eyes: Present: PERRL, EOM intact - Neck Neck: Present: supple, normal ROM - Respiratory Respiratory effort: normal Respiratory: bilateral: diminished, negative: rales, rhonchi, wheezing - Cardiovascular Rhythm: regular Heart Sounds: Present: S1 & S2 - Extremities Extremities: no ischemia Extremity abnormal: edema - Abdominal General gastrointestinal: soft, non-distended, distended, normal bowel sounds, other (ascites) - Integumentary Integumentary: Present: clear, warm - Psychiatric Psychiatric: appropriate mood/affect, cooperative - Neurologic Neurologic: CNII-XII intact, moves all extremities Results - Labs CBC & Chem 7: 10/15/17 08:25 10/15/17 08:25 Labs: Laboratory Last Values WBC 6.1 K/mm3 (4.5-11.0) 10/15/17 08:25 RBC 3.46 M/mm3 (3.65-5.03) L 10/15/17 08:25 Hgb 10.8 gm/dl (10.1-14.3) 10/15/17 08:25 Hct 32.5 % (30.3-42.9) 10/15/17 08:25 MCV 94 fl (79-97) 10/15/17 08:25 MCH 31 pg (28-32) 10/15/17 08:25 MCHC 33 % (30-34) 10/15/17 08:25 RDW 17.0 % (13.2-15.2) H 10/15/17 08:25 Plt Count 182 K/mm3 (140-440) 10/15/17 08:25 Lymph % (Auto) 35.7 % (13.4-35.0) H 10/15/17 08:25 Hinds % (Auto) 7.9 % (0.0-7.3) H 10/15/17 08:25 Eos % (Auto) 3.9 % (0.0-4.3) 10/15/17 08:25 Baso % (Auto) 0.2 % (0.0-1.8) 10/15/17 08:25 Lymph # 2.2 K/mm3 (1.2-5.4) 10/15/17 08:25 Hinds # 0.5 K/mm3 (0.0-0.8) 10/15/17 08:25 Eos # 0.2 K/mm3 (0.0-0.4) 10/15/17 08:25 Baso # 0.0 K/mm3 (0.0-0.1) 10/15/17 08:25 Seg Neutrophils % 52.3 % (40.0-70.0) 10/15/17 08:25 Seg Neutrophils # 3.2 K/mm3 (1.8-7.7) 10/15/17 08:25 PT 12.0 Sec. (12.2-14.9) L 10/14/17 15:15 INR 0.85 (0.87-1.13) L 10/14/17 15:15 VBG pH 7.360 (7.320-7.420) 10/14/17 15:15 Sodium 136 mmol/L (137-145) L 10/15/17 08:25 Potassium 4.3 mmol/L (3.6-5.0) 10/15/17 08:25 Chloride 96.9 mmol/L (98-107) L 10/15/17 08:25 Carbon Dioxide 28 mmol/L (22-30) 10/15/17 08:25 Anion Gap 15 mmol/L 10/15/17 08:25 BUN 17 mg/dL (7-17) 10/15/17 08:25 Creatinine 0.7 mg/dL (0.7-1.2) 10/15/17 08:25 Estimated GFR > 60 ml/min 10/15/17 08:25 BUN/Creatinine Ratio 24 % 10/15/17 08:25 Glucose 253 mg/dL (65-100) H 10/15/17 08:25 Ketones Quantitative Negative (Negative) 10/14/17 17:41 Lactic Acid 1.10 mmol/L (0.7-2.0) 10/14/17 15:15 Calcium 9.4 mg/dL (8.4-10.2) 10/15/17 08:25 Total Bilirubin 0.30 mg/dL (0.1-1.2) 10/14/17 15:15 AST 17 units/L (5-40) 10/14/17 15:15 ALT 29 units/L (7-56) 10/14/17 15:15 Alkaline Phosphatase 119 units/L (35-129) 10/14/17 15:15 Total Protein 8.0 g/dL (6.3-8.2) 10/14/17 15:15 Albumin 4.2 g/dL (3.9-5) 10/14/17 15:15 Albumin/Globulin Ratio 1.1 % 10/14/17 15:15 HCG, Qual Negative (Negative) 10/14/17 17:41 Urine Color Yellow (Yellow) 10/14/17 13:55 Urine Turbidity Cloudy (Clear) 10/14/17 13:55 Urine pH 5.0 (5.0-7.0) 10/14/17 13:55 Ur Specific [place] 1.016 (1.003-1.030) 10/14/17 13:55 Urine Protein 30 mg/dl mg/dL (Negative) 10/14/17 13:55 Urine Glucose (UA) >=500 mg/dL (Negative) 10/14/17 13:55 Urine Ketones Neg mg/dL (Negative) 10/14/17 13:55 Urine Blood Neg (Negative) 10/14/17 13:55 Urine Nitrite Pos (Negative) 10/14/17 13:55 Urine Bilirubin Neg (Negative) 10/14/17 13:55 Urine Urobilinogen < 2.0 mg/dL (<2.0) 10/14/17 13:55 Ur Leukocyte Esterase Mod (Negative) 10/14/17 13:55 Urine WBC (Auto) > 182.0 /HPF (0.0-6.0) H 10/14/17 13:55 Urine RBC (Auto) 1.0 /HPF (0.0-6.0) 10/14/17 13:55 U Epithel Cells (Auto) 11.0 /HPF (0-13.0) 10/14/17 13:55 Urine Bacteria (Auto) 4+ /HPF (Negative) 10/14/17 13:55 Urine Mucus Few /HPF 10/14/17 13:55
[2017-10-16] MEDS: ELAVIL PO SCH (09:48)
[2017-10-16] MEDS: NEURONTIN PO SCH ×3 (09:48→22:47)
[2017-10-16] MEDS: PROTONIX PO SCH (09:48)
[2017-10-16] MEDS: celeXA PO SCH (09:49)
[2017-10-16] MEDS: SODIUM CHLORIDE FLUSH SYRINGE 10 ML IV SCH ×2 (09:49→22:52)
[2017-10-16] MEDS: LOVENOX SUB-Q SCH (09:49)
[2017-10-16] MEDS: VANCOMYCIN 1,750 MG in NACL 0.9% 500 ML 500 ML IV SCH ×2 (09:56→22:51)
--- NOTE | 2017-10-16 11:10 | Consultation ---
History of Present Illness - Reason for Consult Consult date: 10/16/17 right thigh infection/HIV Requesting physician: NENA YOUNG - History of Present Illness 37 y/o female well known to ID seen back in September 2017, with history significant for HIV/[place] [address] Ponce, currently on triumeq and uncontrolled diabetes mellitus; initially admitted on 09/09/2017 due to 48-hour history of right groin tenderness. CT of the leg show soft tissue swelling with subcutaneous gas in the right groin and right proximal thigh. No abscess seen. I saw her for extensive right upper thigh/groin infection likely abscess, no necrotizing fascitis seen in OR. S/P OR I+D on 09/11, OR + beta hem Strep group . CRP=30.6. HIV infection. She was treated with vancomycin and zosyn inpatient and sent home o ceftriaxone 2 g IV qday and flagyl 500 mg PO q8h total 3 weeks until 09/29/17. She did not come to ID office. Final wound cultures grew Strep group B, Serratia, Klebsiella. Unfortunately, patient started complaining of severe in right thigh pain and swelling below surgical wound for 4 days and was re-admitted on 10/14/17. Postsurgical wound has been healing appropriately. In the ED, initial temperature was 99, heart rate 135, respiration 20, blood pressure 157/104. White count 7.4. Hemoglobin 12.1. Platelets 193. Creatinine 0.7. Urinalysis showed 182 white blood cells and moderate leukocyte esterase. CT of right thigh shows swelling consistent with cellulitis in the medial right thigh no abscess. Microbiology: Blood cultures: 10/14 ngtd Urine cultures: 10/14 GNR Wound cultures: 10/14 Staph Current Antimicrobials: Zosyn Vancomycin Previous Antimicrobials: Past History Past Medical History: diabetes, HIV/AIDS, hypertension, hyperlipidemia, other ( asthma, anxiety) Past Surgical History: cholecystectomy, hysterectomy, Other (Right thigh I&D) Social history: smoking. denies: alcohol abuse, prescription drug abuse, IV drug use Family history: diabetes, hypertension Medications and Allergies Allergies Allergy/AdvReac Type Severity Reaction Status Date / Time iodine Allergy Swelling Verified 07/02/17 19:04 sulfamethoxazole Allergy Rash Verified 09/11/17 15:51 [From Bactrim] trimethoprim [From Bactrim] Allergy Rash Verified 09/11/17 15:51 metformin AdvReac Nausea Verified 07/02/17 19:04 seafood Allergy Rash Uncoded 07/02/17 19:04 Home Medications Medication Instructions Recorded Confirmed Last Taken Type ALPRAZolam [Xanax] 0.25 mg PO HS 04/13/13 09/09/17 09/08/17 History Atorvastatin [Lipitor] 40 mg PO HS 04/13/13 09/09/17 09/08/17 History Gabapentin [Gralise] 800 mg PO TID 04/13/13 09/09/17 09/08/17 History Abacavir/Dolutegravir/Lamivudi 1 each PO DAILY 07/10/15 09/09/17 09/08/17 History [Triumeq Tablet] Ibuprofen [Motrin 800 MG tab] 800 mg PO Q8HR PRN #20 tablet 05/21/17 09/09/17 Unknown Rx Amitriptyline [Elavil] 50 mg PO DAILY 09/09/17 09/09/17 09/08/17 History Citalopram [Celexa] 20 mg PO QDAY 09/09/17 09/09/17 09/08/17 History Omeprazole 20 mg PO DAILY 09/09/17 09/09/17 09/08/17 History Zolpidem [Ambien] 10 mg PO QHS 09/09/17 09/09/17 09/08/17 History Docusate Sodium [Colace] 100 mg PO BID PRN #60 capsule 09/15/17 Unknown Rx Insulin Glargine [Lantus VIAL] 40 units SUB-Q QHS 30 Days units 09/15/17 Unknown Rx Insulin Regular, Human [HumuLIN R] 10 units SUB-Q ACHS 30 Days units 09/15/17 Unknown Rx Ondansetron [Zofran Odt] 4 mg PO Q8HR #90 tab.rapdis 09/15/17 Unknown Rx Pantoprazole [Protonix TAB] 20 mg PO QDAY #30 tablet. 09/15/17 Unknown Rx oxyCODONE /ACETAMINOPHEN [Percocet 2 tab PO Q4H PRN #20 tablet 09/15/17 Unknown Rx 5/325 mg] oxyCODONE ER [OxyCONTIN ER TAB] 10 mg PO Q12HR #10 tablet 09/15/17 Unknown Rx Active Meds: Active Medications Abacavir Sulfate (Ziagen) 600 mg PO DAILY [facility] Acetaminophen (Tylenol) 650 mg PO Q4H PRN PRN Reason: Pain MILD(1-3)/Fever >100.5/[place] Alprazolam (Xanax) 0.25 mg PO HS [facility] Last Admin: 10/15/17 22:09 Dose: 0.25 mg Amitriptyline HCl (Elavil) 50 mg PO DAILY [facility] Last Admin: 10/16/17 09:48 Dose: 50 mg Atorvastatin Calcium (Lipitor) 40 mg PO HS [facility] Last Admin: 10/15/17 22:09 Dose: 40 mg Citalopram Hydrobromide (Celexa) 20 mg PO QDAY [facility] Last Admin: 10/16/17 09:49 Dose: 20 mg Dextrose (D50w (25gm) Syringe) 50 ml IV PRN PRN PRN Reason: Hypoglycemia Diphenhydramine HCl (Benadryl) 25 mg IV Q6H PRN PRN Reason: Itching Last Admin: 10/16/17 06:46 Dose: 25 mg Docusate Sodium (Colace) 100 mg PO BID PRN PRN Reason: Pain Enoxaparin Sodium (Lovenox) 40 mg SUB-Q QDAY@1000 [facility] Last Admin: 10/16/17 09:49 Dose: 40 mg Gabapentin (Neurontin) 800 mg PO TID [facility] Last Admin: 10/16/17 09:48 Dose: 800 mg Piperacillin Sod/Tazobactam Sod (Zosyn/Ns 4.5gm/100ml) 4.5 gm in 100 mls @ 200 mls/hr IV Q8H [facility]; Protocol Last Admin: 10/16/17 03:43 Dose: 200 mls/hr Vancomycin HCl 1,750 mg/ (Sodium Chloride) 517.5 mls @ 258.75 mls/hr IV Q12H [facility] Last Admin: 10/16/17 09:56 Dose: 258.75 mls/hr Insulin Glargine (Lantus) 40 units SUB-Q QHS [facility] Last Admin: 10/15/17 22:09 Dose: 40 units Insulin Human Lispro (Humalog) 0 unit SUB-Q ACHS [facility]; Protocol Last Admin: 10/16/17 09:47 Dose: 3 unit Insulin Human Lispro (Humalog) 8 unit SUB-Q AC [facility] Lamivudine (Epivir) 300 mg PO DAILY [facility] Ondansetron HCl (Zofran) 4 mg IV Q8H PRN PRN Reason: Nausea And Vomiting Oxycodone/Acetaminophen (Percocet 5/325) 2 tab PO Q4H PRN PRN Reason: Pain, Moderate (4-6) Last Admin: 10/16/17 09:46 Dose: 2 tab Pantoprazole Sodium (Protonix) 20 mg PO QDAY [facility] Last Admin: 10/16/17 09:48 Dose: 20 mg Sodium Chloride (Sodium Chloride Flush Syringe 10 Ml) 10 ml IV BID [facility] Last Admin: 10/16/17 09:49 Dose: 10 ml Sodium Chloride (Sodium Chloride Flush Syringe 10 Ml) 10 ml IV PRN PRN PRN Reason: LINE FLUSH Vancomycin HCl (Vancomycin Pharmacy To Dose) 1 each IV PKCONSULT [facility] Zolpidem Tartrate (Ambien) 10 mg PO QHS [facility] Last Admin: 10/15/17 22:09 Dose: 10 mg Review of Systems All systems: negative (as per HPI) Physical Examination - Physical Exam Narrative exam: General appearance: Alert in NAD, conversant Eyes: anicteric sclerae, moist conjunctivae; no lid-lag; PERRLA HENT: Atraumatic; oropharynx clear with moist mucous membranes and no mucosal ulcerations/no oral thrush; normal hard and soft palate. Normal external ears. Neck: Trachea midline; supple, no thyromegaly or lymphadenopathy Lungs: CTA, with normal respiratory effort and no intercostal retractions CV: RRR, no murmurs Abdomen: Soft, non-tender; no masses or hepatosplenomegaly Extremities: right groin wound with granulation tissue, right thigh with edema, tenderness and heat Skin: Normal temperature, turgor and texture; no rash, ulcers or subcutaneous nodules Psych: Appropriate affect, alert and oriented to person, place and time. Neuro: alert and oriented x 3. Moving all extermities Lines: No CVL / PICC - Constitutional Vitals: Vital Signs Temp Pulse Resp BP Pulse Ox 98.4 F 91 H 20 114/62 94 10/15/17 17:42 10/15/17 17:42 10/15/17 17:42 10/15/17 17:42 10/15/17 17:42 Temperature -Last 24 Hours Temperature 98.4 F Temperature 98.7 F Results - Labs CBC & Chem 7: 10/15/17 08:25 10/15/17 08:25 Labs: Abnormal lab results 10/14/17 Range/Units 22:04 POC Glucose 221 H (70-105) Assessment and Plan Assessment: 1) Sepsis: Present on admission, manifested by low grade fever, tachycardia. Etiology most likely right thigh infection +/- UTI 2) Right thigh cellulitis +/- early abscess ? surgical wound infection -CT showed cellulitis no abscess -Wound cx 10/14 +Staph 3) Recent Extensive right upper thigh/groin infection likely abscess, no necrotizing fascitis seen in OR. S/P OR I+D on 09/11/17, OR + beta hem Strep group B, Serratia, Klebsiella. -S/P ceftriaxone 2 g IV qday and flagyl 500 mg PO q8h total 3 weeks until . She did not come to ID office. 4) HIV/AIDS [place] [address] Ponce, currently on triumeq, ZX3=[id number] / VL <20 on 09/11/17 5) Uncontrolled diabetes mellitus 6) UTI: urine cx + GNR Plan: -f/u wound cx -contact isolation until MRSA is r/o -diabetes control -continue vanco and zosyn for now -she is s/p 3 weeks of broad spectrum abx IV ceftriaxone and po flagyl and her HIV is under excellent control, I believe her uncontrolled diabetes is increasing her risk of infections -monitor induration - may needs further I+D Thank you for your consultation, will follow up with you. Roxane Phelan MD Infectious Diseases Specialist [facility] ([facility] M [phone] O [phone]
[2017-10-16] MEDS: TIVICAY (NF) PO SCH (13:21)
[2017-10-16] MEDS: EPIVIR PO SCH (13:21)
[2017-10-16] MEDS: ZIAGEN PO SCH (13:21)
--- NOTE | 2017-10-16 16:15 | Progress Note ---
Assessment and Plan - Patient Problems (1) Cellulitis of right thigh Current Visit: Yes Status: Acute Plan to address problem: Patient stable. At this time, there is no indication for any surgical intervention. She is clinically much better. The medial thigh on appearance and exam is much better. Patient may be discharged from our standpoint and we will follow up with her in the wound care clinic. Will follow along. Please call with questions. Time=10min Subjective Date of service: 10/16/17 Patient Reports: Positive: feels better, pain is less, other (continues to have a small amount of drainage from wound). Negative: nausea, vomiting Objective Vital Signs - 12hr 10/16/17 10:05 O2 Sat by Pulse 99 Oximetry - General physical appearance well developed, well nourished, no distress, no pain, other (looks better today) - Eyes normal occular movement - Respiratory normal expansion, normal respiratory effort - Integumentary other (right medial thigh non-tender. Erythema is less intense. No drainage when pressure applied to central thickened area. ) - Labs 10/15/17 08:25 10/15/17 08:25
[2017-10-16] MEDS ORDERED: VANCOMYCIN/NS 1 GM/250 ML 1 GM/250 ML BAG IV SCH (17:00)
[2017-10-16] MEDS ORDERED: VANCOMYCIN PHARMACY TO DOSE IV SCH (17:00)
[2017-10-16] MEDS ORDERED: CLEOCIN PO SCH (18:00)
[2017-10-17] MEDS: AMBIEN PO SCH (00:59)
[2017-10-17] MEDS: XANAX PO SCH (00:59)
[2017-10-17] MEDS: LANTUS SUB-Q SCH (00:59)
[2017-10-17] MEDS: PERCOCET 5/325 PO PRN ×2 (03:10→06:51)
[2017-10-17] MEDS: BENADRYL IV PRN ×2 (04:38→09:53)
[2017-10-17] MEDS: ZOSYN/NS 4.5GM/100ML 4.5 GM/100 ML VIAL IV SCH (06:52)
[2017-10-17] MEDS: LOVENOX SUB-Q SCH (09:15)
[2017-10-17] MEDS: ELAVIL PO SCH (09:16)
[2017-10-17] MEDS: celeXA PO SCH (09:16)
[2017-10-17] MEDS: ZIAGEN PO SCH (09:17)
[2017-10-17] MEDS: VANCOMYCIN 1,750 MG in NACL 0.9% 500 ML 500 ML IV SCH (09:45)
[2017-10-17] MEDS: NEURONTIN PO SCH (09:46)
[2017-10-17] MEDS: PROTONIX PO SCH (09:46)
[2017-10-17] MEDS: TIVICAY (NF) PO SCH (09:47)
[2017-10-17] MEDS: EPIVIR PO SCH (09:47)
[2017-10-17] MEDS: SODIUM CHLORIDE FLUSH SYRINGE 10 ML IV SCH (09:48)
--- NOTE | 2017-10-17 09:59 | Progress Note ---
Assessment and Plan - Patient Problems (1) Cellulitis of right thigh Current Visit: Yes Status: Acute Plan to address problem: Patient stable. At this time, there is no indication for any surgical intervention. She is clinically much better. The medial thigh on appearance and exam is much better. Patient may be discharged from our standpoint and we will follow up with her in the wound care clinic. As for the new area of drainage, this is a small pocket. serosanguineous fluid is draining out. I offered to make the opening larger in order to place a wick in it to facilitate drainage. She declined and said she would periodically milk out the fluid. This area has been having recurrent fluid collections. She said it spontaneously started draining last night. She may still be discharged with this new wound. We will follow in the wound care clinic. Will follow along. Please call with questions. Time=10min Subjective Date of service: 10/17/17 Patient Reports: Positive: pain is less, tolerating a regular diet, other (has new area of drainage - recurrent site). Negative: nausea, vomiting Objective Vital Signs - 12hr 10/16/17 10/17/17 10/17/17 22:00 00:54 05:18 Temperature 98.9 F 97.7 F Pulse Rate 98 H 96 H Respiratory 16 20 20 Rate Blood Pressure 129/76 129/76 O2 Sat by Pulse 97 98 Oximetry 10/17/17 08:36 Temperature Pulse Rate Respiratory Rate Blood Pressure O2 Sat by Pulse 95 Oximetry - General physical appearance no distress, no pain, other (appears frustrated) - Respiratory normal expansion, normal respiratory effort - Integumentary other (original area of cellulitis is improving. New area of drainage is a pinpoint hole. It is in her old scar tissue. No signs of surrounding erythema. Mild tenderness to the touch.) - Labs 10/15/17 08:25 10/15/17 08:25
[2017-10-17] MEDS ORDERED: LEVAQUIN 750MG/150ML 750 MG/150 ML BAG IV SCH (10:00)
[2017-10-17] MEDS: HumaLOG SUB-Q SCH ×4 (10:36→11:30)
--- NOTE | 2017-10-17 11:22 | Discharge Summary ---
Providers - Providers Date of Admission: 10/14/17 21:42 Date of discharge: 10/17/17 Attending physician: LILLIANA GAMINO 10/14/17 21:42 Consult to Physician [CONS] Routine Comment: Consulting Provider: NENA DILL Physician Instructions: Reason For Exam: rt thigh wound 10/14/17 22:18 Consult to Physician [CONS] Routine Comment: Consulting Provider: JERRY MEEK Physician Instructions: Consult per DR. Dill Reason For Exam: HIV positive, cellulitis rt thigh with positive CX 10/14/17 22:31 Consult to Wound/ET Nurse [CONS] Routine Reason For Exam: wound eval 10/15/17 07:01 Consult to Wound/ET Nurse [CONS] Routine Reason For Exam: wound eval Primary care physician: [employer]PERATOR Hospitalization Reason for admission: thigh wound infection Condition: Stable Pertinent studies: Right Lower extremity CT; probable cellulitis involving the medial side of the tight no evidence of abscess Urine cultures; Klebsiella Wound cultures; staph aureus MSSA Hospital course: Morbidly obese 37-year-old female patient with significant history of HIV hypertension diabetes mellitus dyslipidemia bronchial asthma as admitted through heart with the chronic wound infection with cellulitis of the right thigh She was initially evaluated admitted to the hospital started on empiric antibiotics Evaluated by surgery, recommend medical management and follow up with wound care Patient was also evaluated by infectious diseases Wound cultures are positive for staph aureus MSSA Urine cultures were positive for gram-negative Klebsiella Sensitivities were closely monitored Patient received vancomycin and Zosyn during the hospital stay, and is Being discharged on Ceftin 500 mg twice a day for total 14 days,rec by ID Today patient is comfortable no new complaints Vital signs stable, Physical examination prior to discharge is unremarkable Advised to follow private ID, wound care and PMD per schedule Patient is hemodynamically and clinically stable at discharge Discharge diagnosis; --Cellulitis of the right thigh/groin; staph aureus --UTI; gram-negative rods, Klebsiella --Hypertension; moderate control, -- type 2 diabetes mellitus; --hyperlipidemia; stable --History of Asthma; --Morbid obesity; BMI 39.8 --HIV Disposition: -01 TO HOME OR SELFCARE Time spent for discharge: 33 min Core Measure Documentation - Palliative Care Palliative Care/ Comfort Measures: Not Applicable - Core Measures Any of the following diagnoses?: none Exam - Constitutional Vitals: Temp Pulse Resp BP Pulse Ox 97.7 F 96 H 20 129/76 95 10/17/17 05:18 10/17/17 05:18 10/17/17 05:18 10/17/17 05:18 10/17/17 08:36 General appearance: Present: no acute distress, well-nourished - EENT Eyes: Present: PERRL, EOM intact - Neck Neck: Present: supple, normal ROM - Respiratory Respiratory effort: normal Respiratory: bilateral: diminished, negative: rales, rhonchi, wheezing - Cardiovascular Rhythm: regular Heart Sounds: Present: S1 & S2 - Extremities Extremities: no ischemia, No edema - Abdominal General gastrointestinal: Present: soft, non-tender, non-distended, normal bowel sounds - Integumentary Integumentary: Present: clear, warm - Musculoskeletal Musculoskeletal: strength equal bilaterally - Psychiatric Psychiatric: appropriate mood/affect, cooperative - Neurologic Neurologic: CNII-XII intact, moves all extremities Plan Activity: advance as tolerated Diet: diabetic Additional Instructions: Follow-up with private ID in 1-2 weeks. Outpatient wound care per schedule Follow up with: TRUONG MENJIVAR MD [Primary Care Provider] - 3-5 Days JERRY MEEK MD [Staff Physician] - 7 Days NENA DILL MD [Staff Physician] - 7 Days Prescriptions: Cefuroxime [Ceftin] 500 mg PO Q12H #24 tablet
[2017-10-17 12:11] VITALS: BP 152/81
== END 2017-10-17 12:30 | disposition home or self-care (01) | DRG 975 ==
LOC: ED 12:37 → 3A 21:42
PROVIDERS: ADMIT Internal Medicine; ATTEND Internal Medicine
DX: B20 Human immunodeficiency virus [HIV] disease (principal); A41.9 Sepsis, unspecified organism; L03.115 Cellulitis of right lower limb; N39.0 Urinary tract infection, site not specified; E11.9 Type 2 diabetes mellitus without complications; Z88.8 Allergy status to other drugs, medicaments and biological substances; Z88.3 Allergy status to other anti-infective agents; Z91.013 Allergy to seafood; I10 Essential (primary) hypertension; E78.00 Pure hypercholesterolemia, unspecified; J45.909 Unspecified asthma, uncomplicated; Z82.49 Family history of ischemic heart disease and other diseases of the circulatory system; Z79.4 Long term (current) use of insulin; F17.200 Nicotine dependence, unspecified, uncomplicated; Z90.710 Acquired absence of both cervix and uterus; Z90.49 Acquired absence of other specified parts of digestive tract; F32.9 Major depressive disorder, single episode, unspecified; F41.9 Anxiety disorder, unspecified; S71.101A Unspecified open wound, right thigh, initial encounter; X58.XXXA Exposure to other specified factors, initial encounter; Y93.89 Activity, other specified; Y92.89 Other specified places as the place of occurrence of the external cause; Y99.8 Other external cause status; Z83.3 Family history of diabetes mellitus; E66.01 Morbid (severe) obesity due to excess calories; Z68.39 Body mass index [BMI] 39.0-39.9, adult; B95.61 Methicillin susceptible Staphylococcus aureus infection as the cause of diseases classified elsewhere
CPT/HCPCS: 36415; 80048; 80053; 81001; 82010; 82140; 82805; 82962; 84703; 85025; 85610; 87040; 87076; 87086; 87116; 87186; 99406; A9270-GY; J0690; J1200; J1650; J1815; J2270; J2405; J2543; J3370; J7030; J7040; Q9967

== ENCOUNTER 2017-10-23 14:16 | Outpatient (CLI) | payer MEDICARE ==
[2017-10-23] MEDS ORDERED: XYLOCAINE TOPICAL 4% TP ONE (14:39)
[2017-10-23] MEDS ORDERED: SILVER NITRATE TP ONE ×2 (15:22→16:58)
== END 2017-10-23 14:17 | disposition home or self-care (01) ==
LOC: WOUND 14:16
PROVIDERS: ATTEND Surgery
DX: T81.89XD Other complications of procedures, not elsewhere classified, subsequent encounter (principal); E11.9 Type 2 diabetes mellitus without complications; I10 Essential (primary) hypertension; F41.9 Anxiety disorder, unspecified; E78.00 Pure hypercholesterolemia, unspecified; B20 Human immunodeficiency virus [HIV] disease; L73.2 Hidradenitis suppurativa; F17.200 Nicotine dependence, unspecified, uncomplicated; Z90.710 Acquired absence of both cervix and uterus; Y83.8 Other surgical procedures as the cause of abnormal reaction of the patient, or of later complication, without mention of misadventure at the time of the procedure

== ENCOUNTER 2017-11-27 09:45 | Outpatient (CLI) | payer MEDICARE ==
[2017-11-27] MEDS ORDERED: XYLOCAINE TOPICAL 4% TP ONE ×2 (09:57→10:24)
== END 2017-11-27 09:46 | disposition home or self-care (01) ==
LOC: WOUND 09:45
PROVIDERS: ATTEND Surgery
DX: T81.89XD Other complications of procedures, not elsewhere classified, subsequent encounter (principal); E11.622 Type 2 diabetes mellitus with other skin ulcer; L97.811 Non-pressure chronic ulcer of other part of right lower leg limited to breakdown of skin; E78.00 Pure hypercholesterolemia, unspecified; B20 Human immunodeficiency virus [HIV] disease; L73.2 Hidradenitis suppurativa; I10 Essential (primary) hypertension; F41.9 Anxiety disorder, unspecified; F17.200 Nicotine dependence, unspecified, uncomplicated; Z90.710 Acquired absence of both cervix and uterus; Y83.8 Other surgical procedures as the cause of abnormal reaction of the patient, or of later complication, without mention of misadventure at the time of the procedure

== ENCOUNTER 2017-12-17 07:58 | Outpatient (CLI) | payer MEDICARE ==
[2017-12-17] MEDS ORDERED: XYLOCAINE TOPICAL 4% TP ONE ×2 (08:13→08:23)
== END 2017-12-17 07:59 | disposition home or self-care (01) ==
LOC: WOUND 07:58
PROVIDERS: ATTEND Surgery
DX: T81.89XD Other complications of procedures, not elsewhere classified, subsequent encounter (principal); E11.622 Type 2 diabetes mellitus with other skin ulcer; L97.811 Non-pressure chronic ulcer of other part of right lower leg limited to breakdown of skin; E78.00 Pure hypercholesterolemia, unspecified; B20 Human immunodeficiency virus [HIV] disease; L73.2 Hidradenitis suppurativa; I10 Essential (primary) hypertension; F41.9 Anxiety disorder, unspecified; F17.200 Nicotine dependence, unspecified, uncomplicated; Z90.710 Acquired absence of both cervix and uterus; Y83.8 Other surgical procedures as the cause of abnormal reaction of the patient, or of later complication, without mention of misadventure at the time of the procedure

== ENCOUNTER 2017-12-25 07:46 | Outpatient (CLI) | payer MEDICARE ==
[2017-12-25] MEDS ORDERED: XYLOCAINE TOPICAL 4% TP ONE ×2 (08:35→10:48)
== END 2017-12-25 07:47 | disposition home or self-care (01) ==
LOC: WOUND 07:46
PROVIDERS: ATTEND Surgery
DX: T81.89XD Other complications of procedures, not elsewhere classified, subsequent encounter (principal); E11.622 Type 2 diabetes mellitus with other skin ulcer; L97.811 Non-pressure chronic ulcer of other part of right lower leg limited to breakdown of skin; E78.00 Pure hypercholesterolemia, unspecified; B20 Human immunodeficiency virus [HIV] disease; L73.2 Hidradenitis suppurativa; I10 Essential (primary) hypertension; F41.9 Anxiety disorder, unspecified; F17.200 Nicotine dependence, unspecified, uncomplicated; Z90.710 Acquired absence of both cervix and uterus; Y83.8 Other surgical procedures as the cause of abnormal reaction of the patient, or of later complication, without mention of misadventure at the time of the procedure

== ENCOUNTER 2018-01-08 15:38 | Emergency (ER) | payer MEDICARE ==
[2018-01-08 15:51] VITALS: BP 164/90
[2018-01-08] MEDS ORDERED: NACL 0.9% 1000 ML 1,000 ML IV ONE (15:51)
[2018-01-08 16:24] LABS: Bacteria,Urine 1+ /HPF (Negative); Bilirubin,Urine NEG (Negative); Blood,Urine SM (Negative); Color,Urine Yellow (Yellow); Mucus,Urine FEW /HPF; Urobilinogen,Urine < 2.0 mg/dL (<2.0)
[2018-01-08 16:27] LABS: Basophils % (Auto) 0.4 % (0.0-1.8); Eosinophils # (Auto) 0.2 K/mm3 (0.0-0.4); Eosinophils % (Auto) 2.5 % (0.0-4.3); Hematocrit 38.2 % (30.3-42.9); Hemoglobin 13.1 gm/dl (10.1-14.3); Lymphocytes # (Auto) 2.8 K/mm3 (1.2-5.4); Lymphocytes % (Auto) 45.8 % (13.4-35.0); Mean Corpuscular HGB Conc 34 % (30-34); Mean Corpuscular Hemoglobin 33 pg (28-32); Mean Corpuscular Volume 96 fl (79-97); Monocytes # (Auto) 0.3 K/mm3 (0.0-0.8); Monocytes % (Auto) 5.5 % (0.0-7.3); Platelet Count 211 K/mm3 (140-440); Red Blood Count 3.98 M/mm3 (3.65-5.03); Red Cell Distribution Width 15.7 % (13.2-15.2)
[2018-01-08 16:49] LABS: Albumin 4.4 g/dL (3.9-5); BUN/Creatinine Ratio 29; Blood Urea Nitrogen 23 mg/dL (7-17); Calcium 9.7 mg/dL (8.4-10.2); Hemolysis Index 109
[2018-01-08] MEDS ORDERED: TORADOL IM ONE (17:02)
[2018-01-08 17:12] LABS: Alanine Aminotransferase 48 units/L (7-56)
--- NOTE | 2018-01-08 17:12 | Emergency Department Report ---
ED Female HPI - General Chief complaint: Abdominal Pain Stated complaint: ABD PAIN Time Seen by Provider: 01/08/18 16:37 Source: patient Mode of arrival: Ambulatory Limitations: No Limitations - History of Present Illness Initial comments: 37-year-old female presents to ED with possible UTI. Patient reports dysuria, urinary frequency, lower abdominal pain 1 week. States pain is radiating around to the lower back. Denies fever or nausea, vomiting. States urine is dark and malodorous. MD Complaint: dysuria -: week(s) (1) Location: suprapubic Radiation: other (lower back) Severity: moderate Quality: cramping Consistency: constant Improves with: none Worsens with: urination - Related Data Home Medications Medication Instructions Recorded Confirmed Last Taken ALPRAZolam [Xanax] 0.25 mg PO HS 04/13/13 09/09/17 09/08/17 Atorvastatin [Lipitor] 40 mg PO HS 04/13/13 09/09/17 09/08/17 Gabapentin [Gralise] 800 mg PO TID 04/13/13 09/09/17 09/08/17 Abacavir/Dolutegravir/Lamivudi 1 each PO DAILY 07/10/15 09/09/17 09/08/17 [Triumeq Tablet] Amitriptyline [Elavil] 50 mg PO DAILY 09/09/17 09/09/17 09/08/17 Citalopram [Celexa] 20 mg PO QDAY 09/09/17 09/09/17 09/08/17 Omeprazole 20 mg PO DAILY 09/09/17 09/09/17 09/08/17 Zolpidem [Ambien] 10 mg PO QHS 09/09/17 09/09/17 09/08/17 Previous Rx's Medication Instructions Recorded Last Taken Type Ibuprofen [Motrin 800 MG tab] 800 mg PO Q8HR PRN #20 tablet 05/21/17 Unknown Rx Docusate Sodium [Colace CAP] 100 mg PO BID PRN #60 capsule 09/15/17 Unknown Rx Insulin Glargine [Lantus VIAL] 40 units SUB-Q QHS 30 Days units 09/15/17 Unknown Rx Insulin Regular, Human [HumuLIN R] 10 units SUB-Q ACHS 30 Days units 09/15/17 Unknown Rx Ondansetron [Zofran ODT TAB] 4 mg PO Q8HR #90 tab.rapdis 09/15/17 Unknown Rx Pantoprazole [Protonix TAB] 20 mg PO QDAY #30 tablet. 09/15/17 Unknown Rx oxyCODONE /ACETAMINOPHEN [Percocet 2 tab PO Q4H PRN #20 tablet 09/15/17 Unknown Rx 5/325 mg] oxyCODONE ER [OxyCONTIN ER TAB] 10 mg PO Q12HR #10 tablet 09/15/17 Unknown Rx cefUROXime [Ceftin] 500 mg PO Q12H #24 tablet 10/17/17 Unknown Rx Naproxen [Naprosyn] 500 mg PO BID #20 tablet 01/08/18 Unknown Rx Nitrofurantoin Monohyd/M-Cryst 100 mg PO BID #14 capsule 01/08/18 Unknown Rx [Macrobid 100 mg Capsule] Phenazopyridine [Pyridium] 200 mg PO TID #6 tab 01/08/18 Unknown Rx Allergies Allergy/AdvReac Type Severity Reaction Status Date / Time iodine Allergy Swelling Verified 07/02/17 19:04 sulfamethoxazole Allergy Rash Verified 09/11/17 15:51 [From Bactrim] trimethoprim [From Bactrim] Allergy Rash Verified 09/11/17 15:51 metformin AdvReac Nausea Verified 07/02/17 19:04 seafood Allergy Rash Uncoded 07/02/17 19:04 ED Review of Systems ROS: Stated complaint: ABD PAIN Other details as noted in HPI Constitutional: denies: chills, fever Gastrointestinal: abdominal pain. denies: nausea, vomiting Genitourinary: dysuria, frequency, other (reports foul-smelling urine) Musculoskeletal: back pain ED Past Medical Hx - Past Medical History Hx Hypertension: Yes Hx Diabetes: Yes Hx Deep Vein Thrombosis: No Hx Psychiatric Treatment: Yes (anxiety depression) Hx Asthma: Yes Hx HIV: Yes Additional medical history: HIGH CHOLESTEROL - Surgical History Hx Pacemaker: No Hx Internal Defibrillator: No Hx Cholecystectomy: Yes Additional Surgical History: d&c x1, insulin pump placement, TOTAL HYSTERECTOMY , boil removal to R inner thigh - Social History Smoking Status: Current Every Day Smoker Substance Use Type: None - Medications Home Medications: Home Medications Medication Instructions Recorded Confirmed Last Taken Type ALPRAZolam [Xanax] 0.25 mg PO HS 04/13/13 09/09/17 09/08/17 History Atorvastatin [Lipitor] 40 mg PO HS 04/13/13 09/09/17 09/08/17 History Gabapentin [Gralise] 800 mg PO TID 04/13/13 09/09/17 09/08/17 History Abacavir/Dolutegravir/Lamivudi 1 each PO DAILY 07/10/15 09/09/17 09/08/17 History [Triumeq Tablet] Ibuprofen [Motrin 800 MG tab] 800 mg PO Q8HR PRN #20 tablet 05/21/17 09/09/17 Unknown Rx Amitriptyline [Elavil] 50 mg PO DAILY 09/09/17 09/09/17 09/08/17 History Citalopram [Celexa] 20 mg PO QDAY 09/09/17 09/09/17 09/08/17 History Omeprazole 20 mg PO DAILY 09/09/17 09/09/17 09/08/17 History Zolpidem [Ambien] 10 mg PO QHS 09/09/17 09/09/17 09/08/17 History Docusate Sodium [Colace CAP] 100 mg PO BID PRN #60 capsule 09/15/17 Unknown Rx Insulin Glargine [Lantus VIAL] 40 units SUB-Q QHS 30 Days units 09/15/17 Unknown Rx Insulin Regular, Human [HumuLIN R] 10 units SUB-Q ACHS 30 Days units 09/15/17 Unknown Rx Ondansetron [Zofran ODT TAB] 4 mg PO Q8HR #90 tab.rapdis 09/15/17 Unknown Rx Pantoprazole [Protonix TAB] 20 mg PO QDAY #30 tablet. 09/15/17 Unknown Rx oxyCODONE /ACETAMINOPHEN [Percocet 2 tab PO Q4H PRN #20 tablet 09/15/17 Unknown Rx 5/325 mg] oxyCODONE ER [OxyCONTIN ER TAB] 10 mg PO Q12HR #10 tablet 09/15/17 Unknown Rx cefUROXime [Ceftin] 500 mg PO Q12H #24 tablet 10/17/17 Unknown Rx Naproxen [Naprosyn] 500 mg PO BID #20 tablet 01/08/18 Unknown Rx Nitrofurantoin Monohyd/M-Cryst 100 mg PO BID #14 capsule 01/08/18 Unknown Rx [Macrobid 100 mg Capsule] Phenazopyridine [Pyridium] 200 mg PO TID #6 tab 01/08/18 Unknown Rx ED Physical Exam - General Limitations: No Limitations General appearance: alert, in no apparent distress, obese - Head Head exam: Present: atraumatic, normocephalic - Eye Eye exam: Present: normal appearance - ENT ENT exam: Present: mucous membranes moist - Neck Neck exam: Present: normal inspection - Respiratory Respiratory exam: Present: normal lung sounds bilaterally. Absent: respiratory distress - Cardiovascular Cardiovascular Exam: Present: normal rhythm, tachycardia - GI/Abdominal GI/Abdominal exam: Present: soft, tenderness (mild suprapubic) - Extremities Exam Extremities exam: Present: normal inspection - Back Exam Back exam: Present: normal inspection. Absent: CVA tenderness (R), CVA tenderness (L) - Neurological Exam Neurological exam: Present: alert, oriented X3 - Psychiatric Psychiatric exam: Present: normal affect, normal mood - Skin Skin exam: Present: warm, dry, intact, normal color ED Course Vital Signs 01/08/18 01/08/18 15:46 17:08 Temperature 98.7 F Pulse Rate 118 H Respiratory 16 18 Rate Blood Pressure 164/90 O2 Sat by Pulse 98 Oximetry ED Medical Decision Making - Lab Data Result diagrams: 01/08/18 16:00 01/08/18 16:00 - Medical Decision Making 37-year-old female with UTI. Has history of diabetes however no signs of DKA on labs today. Will discharge with prescription for antibiotics and pain meds. Critical care attestation.: If time is entered above; I have spent that time in minutes in the direct care of this critically ill patient, excluding procedure time. ED Disposition Clinical Impression: UTI (urinary tract infection) Disposition: DC-01 TO HOME OR SELFCARE Is pt being admited?: No Condition: Stable Instructions: Urinary Tract Infection in Women (ED) Prescriptions: Naproxen [Naprosyn] 500 mg PO BID #20 tablet Nitrofurantoin Monohyd/M-Cryst [Macrobid 100 mg Capsule] 100 mg PO BID #14 capsule Phenazopyridine [Pyridium] 200 mg PO TID #6 tab Referrals: PRIMARY CARE, [Primary Care Provider] - 3-5 Days Time of Disposition: 18:06
== END 2018-01-08 18:19 | disposition home or self-care (01) ==
LOC: ED 15:38
DX: N39.0 Urinary tract infection, site not specified (principal); I10 Essential (primary) hypertension; E11.9 Type 2 diabetes mellitus without complications; J45.909 Unspecified asthma, uncomplicated; E78.00 Pure hypercholesterolemia, unspecified; Z90.710 Acquired absence of both cervix and uterus; Z90.49 Acquired absence of other specified parts of digestive tract; Z79.4 Long term (current) use of insulin; Z88.2 Allergy status to sulfonamides; Z88.8 Allergy status to other drugs, medicaments and biological substances; Z88.1 Allergy status to other antibiotic agents; Z91.013 Allergy to seafood
CPT/HCPCS: 36415; 80053; 81001; 85025; 96372; 99283; J1885

== ENCOUNTER 2018-04-07 20:53 | Emergency (ER) | payer MEDICARE ==
[2018-04-07] MEDS ORDERED: NACL 0.9% 1000 ML 1,000 ML IV ONE (21:30)
[2018-04-07 22:04] LABS: Basophils % (Auto) 0.2 % (0.0-1.8); Eosinophils # (Auto) 0.2 K/mm3 (0.0-0.4); Eosinophils % (Auto) 2.7 % (0.0-4.3); Hematocrit 38.2 % (30.3-42.9); Hemoglobin 12.9 gm/dl (10.1-14.3); Lymphocytes # (Auto) 2.9 K/mm3 (1.2-5.4); Lymphocytes % (Auto) 34.7 % (13.4-35.0); Mean Corpuscular HGB Conc 34 % (30-34); Mean Corpuscular Volume 97 fl (79-97); Monocytes # (Auto) 0.4 K/mm3 (0.0-0.8); Monocytes % (Auto) 4.5 % (0.0-7.3); Platelet Count 173 K/mm3 (140-440); Red Blood Count 3.94 M/mm3 (3.65-5.03); Red Cell Distribution Width 14.4 % (13.2-15.2)
[2018-04-07 22:24] LABS: Alanine Aminotransferase 41 units/L (7-56); BUN/Creatinine Ratio 21; Blood Urea Nitrogen 19 mg/dL (7-17); Calcium 9.5 mg/dL (8.4-10.2); Hemolysis Index 10
[2018-04-07 22:41] LABS: Bacteria,Urine 1+ /HPF (Negative); Bilirubin,Urine NEG (Negative); Blood,Urine SM (Negative); Color,Urine Yellow (Yellow); Mucus,Urine FEW /HPF; Urobilinogen,Urine < 2.0 mg/dL (<2.0)
--- NOTE | 2018-04-08 01:08 | Emergency Department Report ---
ED Abdominal Pain HPI - General Chief Complaint: Abdominal Pain Stated Complaint: RT SIDE ABDOMINAL PAIN Source: patient Mode of arrival: Ambulatory Limitations: No Limitations - History of Present Illness MD Complaint: abdominal pain - Related Data Home Medications Medication Instructions Recorded Confirmed Last Taken ALPRAZolam [Xanax] 0.25 mg PO HS 04/13/13 09/09/17 09/08/17 Atorvastatin [Lipitor] 40 mg PO HS 04/13/13 09/09/17 09/08/17 Gabapentin [Gralise] 800 mg PO TID 04/13/13 09/09/17 09/08/17 Abacavir/Dolutegravir/Lamivudi 1 each PO DAILY 07/10/15 09/09/17 09/08/17 [Triumeq 600-50-300 mg Tablet] Amitriptyline [Elavil] 50 mg PO DAILY 09/09/17 09/09/17 09/08/17 Citalopram [Celexa] 20 mg PO QDAY 09/09/17 09/09/17 09/08/17 Omeprazole 20 mg PO DAILY 09/09/17 09/09/17 09/08/17 Zolpidem [Ambien] 10 mg PO QHS 09/09/17 09/09/17 09/08/17 Previous Rx's Medication Instructions Recorded Last Taken Type Ibuprofen [Motrin 800 MG tab] 800 mg PO Q8HR PRN #20 tablet 05/21/17 Unknown Rx Docusate Sodium [Colace CAP] 100 mg PO BID PRN #60 capsule 09/15/17 Unknown Rx Insulin Glargine [Lantus VIAL] 40 units SUB-Q QHS 30 Days units 09/15/17 Unknown Rx Insulin Regular, Human [HumuLIN R] 10 units SUB-Q ACHS 30 Days units 09/15/17 Unknown Rx Ondansetron [Zofran ODT TAB] 4 mg PO Q8HR #90 tab.rapdis 09/15/17 Unknown Rx Pantoprazole [Protonix TAB] 20 mg PO QDAY #30 tablet. 09/15/17 Unknown Rx oxyCODONE /ACETAMINOPHEN [Percocet 2 tab PO Q4H PRN #20 tablet 09/15/17 Unknown Rx 5/325 mg] oxyCODONE ER [OxyCONTIN ER TAB] 10 mg PO Q12HR #10 tablet 09/15/17 Unknown Rx cefUROXime [Ceftin] 500 mg PO Q12H #24 tablet 10/17/17 Unknown Rx Naproxen [Naprosyn] 500 mg PO BID #20 tablet 01/08/18 Unknown Rx Nitrofurantoin Monohyd/M-Cryst 100 mg PO BID #14 capsule 01/08/18 Unknown Rx [Macrobid 100 mg Capsule] Phenazopyridine [Pyridium] 200 mg PO TID #6 tab 01/08/18 Unknown Rx Acetaminophen/Codeine [Tylenol 1 tab PO Q6H PRN #10 tab 02/16/18 Unknown Rx /Codeine # 3 tab] Ciprofloxacin HCl [Cipro] 500 mg PO BID #20 tablet 02/16/18 Unknown Rx Phenazopyridine [Pyridium] 200 mg PO BID #9 tab 02/16/18 Unknown Rx Allergies Allergy/AdvReac Type Severity Reaction Status Date / Time iodine Allergy Swelling Verified 02/16/18 13:38 sulfamethoxazole Allergy Rash Verified 02/16/18 13:38 [From Bactrim] trimethoprim [From Bactrim] Allergy Rash Verified 02/16/18 13:38 metformin AdvReac Nausea Verified 02/16/18 13:38 seafood Allergy Rash Uncoded 02/16/18 13:38 ED Review of Systems ROS: Stated complaint: RT SIDE ABDOMINAL PAIN Other details as noted in HPI ED Past Medical Hx - Past Medical History Hx Hypertension: Yes Hx Diabetes: Yes Hx Deep Vein Thrombosis: No Hx Psychiatric Treatment: Yes (anxiety depression) Hx Asthma: Yes Hx HIV: Yes Additional medical history: HIGH CHOLESTEROL - Surgical History Hx Pacemaker: No Hx Internal Defibrillator: No Hx Cholecystectomy: Yes Additional Surgical History: d&c x1, insulin pump placement, TOTAL HYSTERECTOMY, boil removal to R inner thigh - Social History Smoking Status: Current Every Day Smoker Substance Use Type: None - Medications Home Medications: Home Medications Medication Instructions Recorded Confirmed Last Taken Type ALPRAZolam [Xanax] 0.25 mg PO HS 04/13/13 09/09/17 09/08/17 History Atorvastatin [Lipitor] 40 mg PO HS 04/13/13 09/09/17 09/08/17 History Gabapentin [Gralise] 800 mg PO TID 04/13/13 09/09/17 09/08/17 History Abacavir/Dolutegravir/Lamivudi 1 each PO DAILY 04/05/16 06/06/18 06/05/18 History [Triumeq 600-50-300 mg Tablet] Ibuprofen [Motrin 800 MG tab] 800 mg PO Q8HR PRN #20 tablet 05/21/17 09/09/17 Unknown Rx Amitriptyline [Elavil] 50 mg PO DAILY 09/09/17 09/09/17 09/08/17 History Citalopram [Celexa] 20 mg PO QDAY 09/09/17 09/09/17 09/08/17 History Omeprazole 20 mg PO DAILY 09/09/17 09/09/17 09/08/17 History Zolpidem [Ambien] 10 mg PO QHS 09/09/17 09/09/17 09/08/17 History Docusate Sodium [Colace CAP] 100 mg PO BID PRN #60 capsule 09/15/17 Unknown Rx Insulin Glargine [Lantus VIAL] 40 units SUB-Q QHS 30 Days units 09/15/17 Unknown Rx Insulin Regular, Human [HumuLIN R] 10 units SUB-Q ACHS 30 Days units 09/15/17 Unknown Rx Ondansetron [Zofran ODT TAB] 4 mg PO Q8HR #90 tab.rapdis 09/15/17 Unknown Rx Pantoprazole [Protonix TAB] 20 mg PO QDAY #30 tablet.dr 09/15/17 Unknown Rx oxyCODONE /ACETAMINOPHEN [Percocet 2 tab PO Q4H PRN #20 tablet 09/15/17 Unknown Rx 5/325 mg] oxyCODONE ER [OxyCONTIN ER TAB] 10 mg PO Q12HR #10 tablet 09/15/17 Unknown Rx cefUROXime [Ceftin] 500 mg PO Q12H #24 tablet 10/17/17 Unknown Rx Naproxen [Naprosyn] 500 mg PO BID #20 tablet 01/08/18 Unknown Rx Nitrofurantoin Monohyd/M-Cryst 100 mg PO BID #14 capsule 01/08/18 Unknown Rx [Macrobid 100 mg Capsule] Phenazopyridine [Pyridium] 200 mg PO TID #6 tab 01/08/18 Unknown Rx Acetaminophen/Codeine [Tylenol 1 tab PO Q6H PRN #10 tab 02/16/18 Unknown Rx /Codeine # 3 tab] Ciprofloxacin HCl [Cipro] 500 mg PO BID #20 tablet 02/16/18 Unknown Rx Phenazopyridine [Pyridium] 200 mg PO BID #9 tab 02/16/18 Unknown Rx ED Physical Exam - General Limitations: No Limitations ED Course Vital Signs 04/07/18 21:25 Temperature 98.6 F Pulse Rate 114 H Respiratory 20 Rate Blood Pressure 159/85 O2 Sat by Pulse 100 Oximetry ED Medical Decision Making - Lab Data Result diagrams: 04/07/18 21:49 04/07/18 21:49 Critical care attestation.: If time is entered above; I have spent that time in minutes in the direct care of this critically ill patient, excluding procedure time. ED Disposition Condition: Stable Instructions: Abdominal Pain (ED) Referrals: OMAIRA CONTRERAS [Primary Care Provider] - 3-5 Days
[2018-04-08] MEDS ORDERED: MORPHINE IV STA (01:31)
[2018-04-08] MEDS ORDERED: ROCEPHIN/NS 1 GM/50 ML 1 GM/50 ML BAG IV ONE (02:00)
--- NOTE | 2018-04-08 02:17 | Cat Scan Report ---
FINAL REPORT EXAM: CT ABDOMEN PELVIS WO CON HISTORY: flank and right pelvic pain TECHNIQUE: Routine axial imaging was obtained of the abdomen and pelvis without oral or IV contrast. Sagittal and coronal reconstructions were reviewed. Comparison is made to the study of 02/16/2018. FINDINGS: The lung bases reveal minimal bibasilar atelectatic changes. Pleural fluid is not seen. The gallbladder has been removed. The liver and biliary tree appear normal. The pancreas, spleen, and adrenal glands appear normal. The kidneys show no evidence of stones or hydronephrosis. There is a 1 .8 cm cortical cyst in the right kidney. The bowel loops are normal in caliber and course. The append ix appears normal. There is no evidence of free fluid or adenopathy. There is a lower midline abdomin al wall hernia with diastasis of the rectus muscles. The hernia contains omental fat. In the pelvis t he bladder appears normal. The uterus has been removed. The skeletal structures do not show any acute changes. IMPRESSION: Cholecystectomy. No acute process in the abdomen and pelvis. No evidence of renal stones or hydronephrosis. Benign cortical cyst posterior right kidney. Normal appendix. Hysterectomy. Lower midline abdominal hernia containing omental fat.
[2018-04-08] MEDS ORDERED: TORADOL ONE (04:05)
[2018-04-08] MEDS ORDERED: MORPHINE ONE (04:05)
[2018-04-08] MEDS ORDERED: MORPHINE IV ONE (04:07)
[2018-04-08] MEDS ORDERED: TORADOL IV ONE (04:07)
--- NOTE | 2018-04-08 04:18 | Emergency Department Report ---
ED Abdominal Pain HPI - General Chief Complaint: Abdominal Pain Stated Complaint: RT SIDE ABDOMINAL PAIN Time Seen by Provider: 04/08/18 01:29 Source: patient Mode of arrival: Ambulatory Limitations: No Limitations - History of Present Illness MD Complaint: abdominal pain, flank pain -: days(s) (3) Location: RLQ, R flank Radiation: none Migration to: R flank Severity: severe Severity scale (0 -10): 4 Quality: sharp, burning Consistency: constant Improves With: nothing Worsens With: movement Associated Symptoms: denies other symptoms. denies: vomiting, diarrhea, constipation, dysuria, hematuria, anorexia, syncope - Related Data Home Medications Medication Instructions Recorded Confirmed Last Taken ALPRAZolam [Xanax] 0.25 mg PO HS 04/13/13 09/09/17 09/08/17 Atorvastatin [Lipitor] 40 mg PO HS 04/13/13 09/09/17 09/08/17 Gabapentin [Gralise] 800 mg PO TID 04/13/13 09/09/17 09/08/17 Abacavir/Dolutegravir/Lamivudi 1 each PO DAILY 07/10/15 09/09/17 09/08/17 [Triumeq 600-50-300 mg Tablet] Amitriptyline [Elavil] 50 mg PO DAILY 09/09/17 09/09/17 09/08/17 Citalopram [Celexa] 20 mg PO QDAY 09/09/17 09/09/17 09/08/17 Omeprazole 20 mg PO DAILY 09/09/17 09/09/17 09/08/17 Zolpidem [Ambien] 10 mg PO QHS 09/09/17 09/09/17 09/08/17 Previous Rx's Medication Instructions Recorded Last Taken Type Ibuprofen [Motrin 800 MG tab] 800 mg PO Q8HR PRN #20 tablet 05/21/17 Unknown Rx Docusate Sodium [Colace CAP] 100 mg PO BID PRN #60 capsule 09/15/17 Unknown Rx Insulin Glargine [Lantus VIAL] 40 units SUB-Q QHS 30 Days units 09/15/17 Unknown Rx Insulin Regular, Human [HumuLIN R] 10 units SUB-Q ACHS 30 Days units 09/15/17 Unknown Rx Ondansetron [Zofran ODT TAB] 4 mg PO Q8HR #90 tab.rapdis 09/15/17 Unknown Rx Pantoprazole [Protonix TAB] 20 mg PO QDAY #30 tablet. 09/15/17 Unknown Rx oxyCODONE /ACETAMINOPHEN [Percocet 2 tab PO Q4H PRN #20 tablet 09/15/17 Unknown Rx 5/325 mg] oxyCODONE ER [OxyCONTIN ER TAB] 10 mg PO Q12HR #10 tablet 09/15/17 Unknown Rx cefUROXime [Ceftin] 500 mg PO Q12H #24 tablet 10/17/17 Unknown Rx Naproxen [Naprosyn] 500 mg PO BID #20 tablet 01/08/18 Unknown Rx Nitrofurantoin Monohyd/M-Cryst 100 mg PO BID #14 capsule 01/08/18 Unknown Rx [Macrobid 100 mg Capsule] Phenazopyridine [Pyridium] 200 mg PO TID #6 tab 01/08/18 Unknown Rx Acetaminophen/Codeine [Tylenol 1 tab PO Q6H PRN #10 tab 02/16/18 Unknown Rx /Codeine # 3 tab] Ciprofloxacin HCl [Cipro] 500 mg PO BID #20 tablet 02/16/18 Unknown Rx Phenazopyridine [Pyridium] 200 mg PO BID #9 tab 02/16/18 Unknown Rx Ciprofloxacin HCl [Cipro] 500 mg PO BID #20 tablet 04/08/18 Unknown Rx Phenazopyridine [Pyridium] 200 mg PO BID PRN #10 tab 04/08/18 Unknown Rx Allergies Allergy/AdvReac Type Severity Reaction Status Date / Time iodine Allergy Swelling Verified 02/16/18 13:38 sulfamethoxazole Allergy Rash Verified 02/16/18 13:38 [From Bactrim] trimethoprim [From Bactrim] Allergy Rash Verified 02/16/18 13:38 metformin AdvReac Nausea Verified 02/16/18 13:38 seafood Allergy Rash Uncoded 02/16/18 13:38 ED Review of Systems ROS: Stated complaint: RT SIDE ABDOMINAL PAIN Other details as noted in HPI Constitutional: denies: chills, fever Eyes: denies: eye pain, eye discharge, vision change ENT: denies: ear pain, throat pain Respiratory: denies: cough, shortness of breath, wheezing Cardiovascular: denies: chest pain, palpitations Endocrine: no symptoms reported Gastrointestinal: denies: abdominal pain, nausea, diarrhea Genitourinary: denies: urgency, dysuria, discharge Musculoskeletal: denies: back pain, joint swelling, arthralgia Skin: denies: rash, lesions Neurological: denies: headache, weakness, paresthesias Psychiatric: denies: anxiety, depression Hematological/Lymphatic: denies: easy bleeding, easy bruising ED Past Medical Hx - Past Medical History Hx Hypertension: Yes Hx Diabetes: Yes Hx Deep Vein Thrombosis: No Hx Psychiatric Treatment: Yes (anxiety depression) Hx Asthma: Yes Hx HIV: Yes Additional medical history: HIGH CHOLESTEROL - Surgical History Hx Pacemaker: No Hx Internal Defibrillator: No Hx Cholecystectomy: Yes Additional Surgical History: d&c x1, insulin pump placement, TOTAL HYSTERECTOMY, boil removal to R inner thigh - Social History Smoking Status: Current Every Day Smoker Substance Use Type: None - Medications Home Medications: Home Medications Medication Instructions Recorded Confirmed Last Taken Type ALPRAZolam [Xanax] 0.25 mg PO HS 04/13/13 09/09/17 09/08/17 History Atorvastatin [Lipitor] 40 mg PO HS 04/13/13 09/09/17 09/08/17 History Gabapentin [Gralise] 800 mg PO TID 04/13/13 09/09/17 09/08/17 History Abacavir/Dolutegravir/Lamivudi 1 each PO DAILY 07/10/15 09/09/17 09/08/17 History [Triumeq 600-50-300 mg Tablet] Ibuprofen [Motrin 800 MG tab] 800 mg PO Q8HR PRN #20 tablet 05/21/17 09/09/17 Unknown Rx Amitriptyline [Elavil] 50 mg PO DAILY 09/09/17 09/09/17 09/08/17 History Citalopram [Celexa] 20 mg PO QDAY 09/09/17 09/09/17 09/08/17 History Omeprazole 20 mg PO DAILY 09/09/17 09/09/17 09/08/17 History Zolpidem [Ambien] 10 mg PO QHS 09/09/17 09/09/17 09/08/17 History Docusate Sodium [Colace CAP] 100 mg PO BID PRN #60 capsule 09/15/17 Unknown Rx Insulin Glargine [Lantus VIAL] 40 units SUB-Q QHS 30 Days units 09/15/17 Unknown Rx Insulin Regular, Human [HumuLIN R] 10 units SUB-Q ACHS 30 Days units 09/15/17 Unknown Rx Ondansetron [Zofran ODT TAB] 4 mg PO Q8HR #90 tab.rapdis 09/15/17 Unknown Rx Pantoprazole [Protonix TAB] 20 mg PO QDAY #30 tablet.dr 09/15/17 Unknown Rx oxyCODONE /ACETAMINOPHEN [Percocet 2 tab PO Q4H PRN #20 tablet 09/15/17 Unknown Rx 5/325 mg] oxyCODONE ER [OxyCONTIN ER TAB] 10 mg PO Q12HR #10 tablet 09/15/17 Unknown Rx cefUROXime [Ceftin] 500 mg PO Q12H #24 tablet 10/17/17 Unknown Rx Naproxen [Naprosyn] 500 mg PO BID #20 tablet 01/08/18 Unknown Rx Nitrofurantoin Monohyd/M-Cryst 100 mg PO BID #14 capsule 01/08/18 Unknown Rx [Macrobid 100 mg Capsule] Phenazopyridine [Pyridium] 200 mg PO TID #6 tab 01/08/18 Unknown Rx Acetaminophen/Codeine [Tylenol 1 tab PO Q6H PRN #10 tab 02/16/18 Unknown Rx /Codeine # 3 tab] Ciprofloxacin HCl [Cipro] 500 mg PO BID #20 tablet 02/16/18 Unknown Rx Phenazopyridine [Pyridium] 200 mg PO BID #9 tab 02/16/18 Unknown Rx Ciprofloxacin HCl [Cipro] 500 mg PO BID #20 tablet 04/08/18 Unknown Rx Phenazopyridine [Pyridium] 200 mg PO BID PRN #10 tab 04/08/18 Unknown Rx ED Physical Exam - General Limitations: No Limitations General appearance: alert, in no apparent distress - Head Head exam: Present: atraumatic, normocephalic - Eye Eye exam: Present: normal appearance, PERRL, EOMI Pupils: Present: normal accommodation - ENT ENT exam: Present: normal exam, mucous membranes moist, TM's normal bilaterally - Neck Neck exam: Present: normal inspection. Absent: full ROM, lymphadenopathy - Respiratory Respiratory exam: Present: normal lung sounds bilaterally. Absent: respiratory distress, rales, rhonchi, chest wall tenderness, accessory muscle use, decreased breath sounds - Cardiovascular Cardiovascular Exam: Present: regular rate, normal rhythm. Absent: systolic murmur, diastolic murmur, rubs, gallop - GI/Abdominal GI/Abdominal exam: Present: soft, tenderness, normal bowel sounds. Absent: distended, guarding, rebound, rigid, mass, bruit, pulsatile mass - Extremities Exam Extremities exam: Present: normal inspection, full ROM, normal capillary refill. Absent: pedal edema - Back Exam Back exam: Present: normal inspection, full ROM. Absent: CVA tenderness (R), CVA tenderness (L), paraspinal tenderness, vertebral tenderness - Neurological Exam Neurological exam: Present: alert, oriented X3, CN II-XII intact. Absent: normal gait - Psychiatric Psychiatric exam: Present: normal affect, normal mood - Skin Skin exam: Present: warm, dry, intact, normal color. Absent: rash ED Course Vital Signs 04/07/18 21:25 Temperature 98.6 F Pulse Rate 114 H Respiratory 20 Rate Blood Pressure 159/85 O2 Sat by Pulse 100 Oximetry ED Medical Decision Making - Lab Data Result diagrams: 04/07/18 21:49 04/07/18 21:49 - Radiology Data Radiology results: report reviewed Novolin Accardo, no appendicitis. No perforation, no acute process Critical care attestation.: If time is entered above; I have spent that time in minutes in the direct care of this critically ill patient, excluding procedure time. ED Disposition Clinical Impression: UTI (urinary tract infection) Disposition: DC-01 TO HOME OR SELFCARE Is pt being admited?: No Does the pt Need Aspirin: No Condition: Stable Instructions: Phenazopyridine (By mouth), Urinary Tract Infection in Women (ED), Abdominal Pain (ED) Prescriptions: Ciprofloxacin HCl [Cipro] 500 mg PO BID #20 tablet Phenazopyridine [Pyridium] 200 mg PO BID PRN #10 tab PRN Reason: dysuria Referrals: OMAIAR CONTRERAS [Primary Care Provider] - 3-5 Days [facility] 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
[2018-04-08 05:00] VITALS: BP 130/87
== END 2018-04-08 04:58 | disposition home or self-care (01) ==
LOC: ED 20:53
DX: N39.0 Urinary tract infection, site not specified (principal); I10 Essential (primary) hypertension; E11.9 Type 2 diabetes mellitus without complications; J45.909 Unspecified asthma, uncomplicated; E78.00 Pure hypercholesterolemia, unspecified; F17.200 Nicotine dependence, unspecified, uncomplicated; Z90.49 Acquired absence of other specified parts of digestive tract; Z90.710 Acquired absence of both cervix and uterus; Z88.2 Allergy status to sulfonamides; Z88.8 Allergy status to other drugs, medicaments and biological substances; Z88.1 Allergy status to other antibiotic agents; Z91.013 Allergy to seafood
CPT/HCPCS: 36415; 74176; 80053; 81001; 83690; 85025; 96365; 96375; 96376; 99284; J0696; J1885; J2270

== ENCOUNTER 2018-05-10 11:18 | Emergency (ER) | payer MEDICARE ==
[2018-05-10 11:47] VITALS: BP 153/80
[2018-05-10] MEDS ORDERED: ZOFRAN IV ONE (14:36)
[2018-05-10] MEDS ORDERED: NACL 0.9% 1000 ML 1,000 ML IV ONE (14:36)
[2018-05-10] MEDS ORDERED: MORPHINE IV ONE ×2 (14:36→18:26)
[2018-05-10 14:37] LABS: Basophils % (Auto) 0.3 % (0.0-1.8); Eosinophils # (Auto) 0.1 K/mm3 (0.0-0.4); Eosinophils % (Auto) 1.8 % (0.0-4.3); Hematocrit 39.2 % (30.3-42.9); Hemoglobin 13.2 gm/dl (10.1-14.3); Lymphocytes # (Auto) 2.2 K/mm3 (1.2-5.4); Lymphocytes % (Auto) 33.2 % (13.4-35.0); Mean Corpuscular HGB Conc 34 % (30-34); Mean Corpuscular Volume 96 fl (79-97); Monocytes # (Auto) 0.4 K/mm3 (0.0-0.8); Platelet Count 129 K/mm3 (140-440); Red Blood Count 4.08 M/mm3 (3.65-5.03); Red Cell Distribution Width 13.9 % (13.2-15.2)
[2018-05-10 15:28] LABS: Alanine Aminotransferase 44 units/L (7-56); Albumin 3.6 g/dL (3.9-5); BUN/Creatinine Ratio 41; Blood Urea Nitrogen 29 mg/dL (7-17); Calcium 9.5 mg/dL (8.4-10.2); Hemolysis Index 51
--- NOTE | 2018-05-10 15:28 | Emergency Department Report ---
ED Abdominal Pain HPI - General Chief Complaint: Abdominal Pain Stated Complaint: RT SIDE PAIN Time Seen by Provider: 05/10/18 14:09 Source: patient Mode of arrival: Ambulatory Limitations: No Limitations - History of Present Illness Initial Comments: This is a 38-year-old female nontoxic, well nourished in appearance, no acute signs of distress presents to the ED with c/o of nausea and right sided abdominal pain 5 days. Patient denies any vomiting. Patient describes abdominal pain as cramping and aching with level of 8/10 in right lower abdomin al area. Patient denies chest pain, short of breath, fever, chills, headache, stiff neck, numbness or tingling. Patient denies any diarrhea or constipation. Patient denies any recent travels. Patient stated allergies to iodine, bactrim, and metformin. Denies allergies to IV contrast. MD Complaint: abdominal pain -: days(s) (5) Location: RLQ Radiation: none Migration to: no migration Severity: mild Severity scale (0 -10): 8 Quality: cramping, aching Consistency: constant Improves With: nothing Worsens With: nothing Associated Symptoms: nausea. denies: vomiting, diarrhea, fever, chills, co nstipation, dysuria, hematemesis, hematochezia, melena, hematuria, anorexia, syncope - Related Data Home Medications Medication Instructions Recorded Confirmed Last Taken ALPRAZolam [Xanax] 0.25 mg PO HS 04/13/13 09/09/17 09/08/17 Atorvastatin [Lipitor] 40 mg PO HS 04/13/13 09/09/17 09/08/17 Gabapentin [Gralise] 800 mg PO TID 04/13/13 09/09/17 09/08/17 Abacavir/Dolutegravir/Lamivudi 1 each PO DAILY 07/10/15 09/09/17 09/08/17 [Triumeq 600-50-300 mg Tablet] Amitriptyline [Elavil] 50 mg PO DAILY 09/09/17 09/09/17 09/08/17 Citalopram [Celexa] 20 mg PO QDAY 09/09/17 09/09/17 09/08/17 Omeprazole 20 mg PO DAILY 09/09/17 09/09/17 09/08/17 Zolpidem [Ambien] 10 mg PO QHS 09/09/17 09/09/17 09/08/17 Previous Rx's Medication Instructions Recorded Last Taken Type Ibuprofen [Motrin 800 MG tab] 800 mg PO Q8HR PRN #20 tablet 05/21/17 Unknown Rx Docusate Sodium [Colace CAP] 100 mg PO BID PRN #60 capsule 09/15/17 Unknown Rx Insulin Glargine [Lantus VIAL] 40 units SUB-Q QHS 30 Days units 09/15/17 Unknown Rx Insulin Regular, Human [HumuLIN R] 10 units SUB-Q ACHS 30 Days units 09/15/17 Unknown Rx Ondansetron [Zofran ODT TAB] 4 mg PO Q8HR #90 tab.rapdis 09/15/17 Unknown Rx Pantoprazole [Protonix TAB] 20 mg PO QDAY #30 tablet. 09/15/17 Unknown Rx oxyCODONE /ACETAMINOPHEN [Percocet 2 tab PO Q4H PRN #20 tablet 09/15/17 Unknown Rx 5/325 mg] oxyCODONE ER [OxyCONTIN ER TAB] 10 mg PO Q12HR #10 tablet 09/15/17 Unknown Rx cefUROXime [Ceftin] 500 mg PO Q12H #24 tablet 10/17/17 Unknown Rx Naproxen [Naprosyn] 500 mg PO BID #20 tablet 01/08/18 Unknown Rx Nitrofurantoin Monohyd/M-Cryst 100 mg PO BID #14 capsule 01/08/18 Unknown Rx [Macrobid 100 mg Capsule] Phenazopyridine [Pyridium] 200 mg PO TID #6 tab 01/08/18 Unknown Rx Acetaminophen/Codeine [Tylenol 1 tab PO Q6H PRN #10 tab 02/16/18 Unknown Rx /Codeine # 3 tab] Ciprofloxacin HCl [Cipro] 500 mg PO BID #20 tablet 02/16/18 Unknown Rx Phenazopyridine [Pyridium] 200 mg PO BID #9 tab 02/16/18 Unknown Rx Ciprofloxacin HCl [Cipro] 500 mg PO BID #20 tablet 04/08/18 Unknown Rx Phenazopyridine [Pyridium] 200 mg PO BID PRN #10 tab 04/08/18 Unknown Rx Acetaminophen/Codeine [Tylenol 1 tab PO Q6H PRN #12 tab 05/10/18 Unknown Rx /Codeine # 3 tab] Ondansetron [Zofran Odt] 4 mg PO Q8HR PRN #20 tab.rapdis 05/10/18 Unknown Rx Allergies Allergy/AdvReac Type Severity Reaction Status Date / Time iodine Allergy Swelling Verified 05/10/18 11:43 sulfamethoxazole Allergy Rash Verified 05/10/18 11:43 [From Bactrim] trimethoprim [From Bactrim] Allergy Rash Verified 05/10/18 11:43 metformin AdvReac Nausea Verified 05/10/18 11:43 seafood Allergy Rash Uncoded 02/16/18 13:38 ED Review of Systems ROS: Stated complaint: RT SIDE PAIN Other details as noted in HPI Constitutional: denies: chills, fever Eyes: denies: eye pain, eye discharge, vision change ENT: denies: ear pain, throat pain Respiratory: denies: cough, shortness of breath, wheezing Cardiovascular: denies: chest pain, palpitations Endocrine: no symptoms reported Gastrointestinal: abdominal pain, nausea. denies: vomiting, diarrhea Genitourinary: denies: urgency, dysuria, discharge Musculoskeletal: denies: back pain, joint swelling, arthralgia Skin: denies: rash, lesions Neurological: denies: headache, weakness, paresthesias Psychiatric: denies: anxiety, depression Hematological/Lymphatic: denies: easy bleeding, easy bruising ED Past Medical Hx - Past Medical History Previous Medical History?: Yes Hx Hypertension: Yes Hx Diabetes: Yes Hx Deep Vein Thrombosis: No Hx Psychiatric Treatment: Yes (anxiety depression) Hx Asthma: Yes Hx HIV: Yes Additional medical history: HIGH CHOLESTEROL - Surgical History Past Surgical History?: Yes Hx Pacemaker: No Hx Internal Defibrillator: No Hx Cholecystectomy: Yes Additional Surgical History: d&c x1, insulin pump placement, TOTAL HYSTERECTOMY, boil removal to R inner thigh - Social History Smoking Status: Current Every Day Smoker - Medications Home Medications: Home Medications Medication Instructions Recorded Confirmed Last Taken Type ALPRAZolam [Xanax] 0.25 mg PO HS 04/13/13 09/09/17 09/08/17 History Atorvastatin [Lipitor] 40 mg PO HS 04/13/13 09/09/17 09/08/17 History Gabapentin [Gralise] 800 mg PO TID 04/13/13 09/09/17 09/08/17 History Abacavir/Dolutegravir/Lamivudi 1 each PO DAILY 07/10/15 09/09/17 09/08/17 History [Triumeq 600-50-300 mg Tablet] Ibuprofen [Motrin 800 MG tab] 800 mg PO Q8HR PRN #20 tablet 05/21/17 09/09/17 Unknown Rx Amitriptyline [Elavil] 50 mg PO DAILY 09/09/17 09/09/17 09/08/17 History Citalopram [Celexa] 20 mg PO QDAY 09/09/17 09/09/17 09/08/17 History Omeprazole 20 mg PO DAILY 09/09/17 09/09/17 09/08/17 History Zolpidem [Ambien] 10 mg PO QHS 09/09/17 09/09/17 09/08/17 History Docusate Sodium [Colace CAP] 100 mg PO BID PRN #60 capsule 09/15/17 Unknown Rx Insulin Glargine [Lantus VIAL] 40 units SUB-Q QHS 30 Days units 09/15/17 Unknown Rx Insulin Regular, Human [HumuLIN R] 10 units SUB-Q ACHS 30 Days units 09/15/17 Unknown Rx Ondansetron [Zofran ODT TAB] 4 mg PO Q8HR #90 tab.rapdis 09/15/17 Unknown Rx Pantoprazole [Protonix TAB] 20 mg PO QDAY #30 tablet. 09/15/17 Unknown Rx oxyCODONE /ACETAMINOPHEN [Percocet 2 tab PO Q4H PRN #20 tablet 09/15/17 Unknown Rx 5/325 mg] oxyCODONE ER [OxyCONTIN ER TAB] 10 mg PO Q12HR #10 tablet 09/15/17 Unknown Rx cefUROXime [Ceftin] 500 mg PO Q12H #24 tablet 10/17/17 Unknown Rx Naproxen [Naprosyn] 500 mg PO BID #20 tablet 01/08/18 Unknown Rx Nitrofurantoin Monohyd/M-Cryst 100 mg PO BID #14 capsule 01/08/18 Unknown Rx [Macrobid 100 mg Capsule] Phenazopyridine [Pyridium] 200 mg PO TID #6 tab 01/08/18 Unknown Rx Acetaminophen/Codeine [Tylenol 1 tab PO Q6H PRN #10 tab 02/16/18 Unknown Rx /Codeine # 3 tab] Ciprofloxacin HCl [Cipro] 500 mg PO BID #20 tablet 02/16/18 Unknown Rx Phenazopyridine [Pyridium] 200 mg PO BID #9 tab 02/16/18 Unknown Rx Ciprofloxacin HCl [Cipro] 500 mg PO BID #20 tablet 04/08/18 Unknown Rx Phenazopyridine [Pyridium] 200 mg PO BID PRN #10 tab 04/08/18 Unknown Rx Acetaminophen/Codeine [Tylenol 1 tab PO Q6H PRN #12 tab 05/10/18 Unknown Rx /Codeine # 3 tab] Ondansetron [Zofran Odt] 4 mg PO Q8HR PRN #20 tab.rapdis 05/10/18 Unknown Rx ED Physical Exam - General Limitations: No Limitations General appearance: alert, in no apparent distress - Head Head exam: Present: atraumatic, normocephalic - Eye Eye exam: Present: normal appearance - Neck Neck exam: Present: normal inspection, full ROM. Absent: tenderness, meningismus, lymphadenopathy - Respiratory Respiratory exam: Present: normal lung sounds bilaterally. Absent: respiratory distress, wheezes, rales, rhonchi, stridor, chest wall tenderness, accessory muscle use, decreased breath sounds, prolonged expiratory - Cardiovascular Cardiovascular Exam: Present: regular rate, normal rhythm, normal heart sounds. Absent: irregular rhythm, systolic murmur, diastolic murmur, rubs, gallop - GI/Abdominal GI/Abdominal exam: Present: soft, tenderness (RLQ), normal bowel sounds. Absent: distended, guarding, rebound, rigid, diminished bowel sounds, hyperactive bowel sounds, hypoactive bowel sounds, mass, pulsatile mass - Expanded GI/Abdominal Exam Expanded GI/Abdominal exam: Absent: psoas sign, Farr's sign, Rovsing's sign, tenderness at Mcburney's Point, ascites - Extremities Exam Extremities exam: Present: normal inspection, full ROM, normal capillary refill - Back Exam Back exam: Present: normal inspection, full ROM. Absent: tenderness, CVA tenderness (R), CVA tenderness (L), muscle spasm, paraspinal tenderness, vertebral tenderness, rash noted - Neurological Exam Neurological exam: Present: alert, oriented X3, normal gait - Psychiatric Psychiatric exam: Present: normal affect, normal mood - Skin Skin exam: Present: warm, dry, intact, normal color. Absent: rash ED Course Vital Signs 05/10/18 11:43 Temperature 98.4 F Pulse Rate 96 H Respiratory 20 Rate Blood Pressure 153/80 O2 Sat by Pulse 98 Oximetry - Reevaluation(s) Reevaluation #1: 05/10/18 15:45 Patient is speaking in full sentences with no signs of distress noted. - Consultations Consultation #1: 05/10/18 20:31 Patient has been consulted with Dr. Garrett about patient history, physical exam, and labs/CT results and examined and screened patient and agrees to ED plan of care and discharge plan of care. ED Medical Decision Making - Lab Data Result diagrams: 05/10/18 14:29 05/10/18 14:29 - Medical Decision Making This is a 38-year-old female that presents with abdominal pain and UTI. Patient is stable and was examined by me. Patient results has been discussed with Dr. Garrett which stated can be discharged and treated for UTI. There is slight abdominal tenderness. Labs obtained. UA obtained with UTI. CT with oral and IV of abdomen obtained and dictated by the radiologist. Patient is notified of the report with no questions noted by the patient. Vital signs are stable prior to discharge. PAtient received medical treatment in the ED which patient stated symptoms has resolved and subsided. A by mouth challenge has been obtained and patient tolerated well with no nausea vomiting. Patient was notified of strict precautions of appendicitis symptoms and to return to the ED if symptoms occurs as soon as possible. Patient was also instructed to Follow-up with a primary care doctor in 3-5 days or if symptoms worsen and continue return to emergency room as soon as possible. At time of discharge, the patient does not seem toxic or ill in appearance. No acute signs of distress noted. Patient agrees to discharge treatment plan of care. No further questions noted by the patient. Critical care attestation.: If time is entered above; I have spent that time in minutes in the direct care of this critically ill patient, excluding procedure time. ED Disposition Clinical Impression: Abdominal pain Qualifiers: Abdominal location: right lower quadrant Qualified Code(s): R10.31 - Right lower quadrant pain UTI (urinary tract infection) Qualifiers: Urinary tract infection type: site unspecified Hematuria presence: without hematuria Qualified Code(s): N39.0 - Urinary tract infection, site not specified Disposition: TO HOME OR SELFCARE Is pt being admited?: No Does the pt Need Aspirin: No Condition: Stable Instructions: Abdominal Pain (ED), Urinary Tract Infection in Women (ED) Additional Instructions: Follow-up with a primary care doctor in 3-5 days or if symptoms worsen and continue return to emergency room as soon as possible. Do not operate any machinery while taking Tylenol with codeine as this may cause drowsiness. Prescriptions: Acetaminophen/Codeine [Tylenol /Codeine # 3 tab] 1 tab PO Q6H PRN #12 tab PRN Reason: Pain , Severe (7-10) Ondansetron [Zofran Odt] 4 mg PO Q8HR PRN #20 tab.rapdis PRN Reason: Nausea Referrals: PRIMARY CAREMD [Referring] - 3-5 Days ZENA RIZZO MD [Staff Physician] - 3-5 Days [facility] [place] [Outside] - [facility] - [facility]-5 Days Forms: Work/School Release Form(ED)
[2018-05-10 15:40] LABS: Bilirubin,Direct < 0.2 mg/dL (0-0.2)
[2018-05-10] MEDS ORDERED: BENADRYL IV ONE (15:40)
[2018-05-10 19:46] LABS: Bilirubin,Urine NEG (Negative); Blood,Urine NEG (Negative); Color,Urine Straw (Yellow); Protein,Urine <15 mg/dL mg/dL (Negative); Urobilinogen,Urine < 2.0 mg/dL (<2.0)
--- NOTE | 2018-05-10 19:48 | Cat Scan Report ---
FINAL REPORT EXAM: CT ABD AND PELVIS W CONTRAST HISTORY: abd pain TECHNIQUE: Axial images were performed from the lung bases to the pubic symphysis following IV and o ral contrast administration. Multiplanar reformats are performed on the acquisition scanner. Delayed images were performed. Total exam DLP 4103.78 mGy-cm Comparison: 04/08/18, 02/16/2018, 10/14/2017 FINDINGS: Please see the CT abdomen and pelvis report from earlier same day for the report. This exam consists of the delayed phase images which shows normal contrast excretion. Bilateral renal cortical cysts are simple. Normal filling of the urinary bladder on the delayed phase images showing and air bubble in the mildly thick-walled urinary bladder. Left ureteral jet is well seen. Right ureteral jet not well delineated. Mild scarring in the pelvic floor. IMPRESSION: Delayed phase images show normal contrast excretion with well-delineated left ureteral jet. Normal fi lling of the urinary bladder. Air bubble in the urinary bladder with mild wall thickening.
== END 2018-05-10 21:30 | disposition home or self-care (01) ==
LOC: ED 11:18
DX: N39.0 Urinary tract infection, site not specified (principal); R10.31 Right lower quadrant pain; R11.0 Nausea; I10 Essential (primary) hypertension; E11.9 Type 2 diabetes mellitus without complications; F41.9 Anxiety disorder, unspecified; F32.9 Major depressive disorder, single episode, unspecified; J45.909 Unspecified asthma, uncomplicated; F17.200 Nicotine dependence, unspecified, uncomplicated; E78.00 Pure hypercholesterolemia, unspecified; Z90.49 Acquired absence of other specified parts of digestive tract; Z90.710 Acquired absence of both cervix and uterus; Z21 Asymptomatic human immunodeficiency virus [HIV] infection status; Z91.013 Allergy to seafood; Z91.041 Radiographic dye allergy status; Z88.2 Allergy status to sulfonamides; Z79.4 Long term (current) use of insulin
CPT/HCPCS: 36415; 74177; 80048; 80076; 81001; 83690; 84703; 85025; 96374; 96375; 96376; 99284; J1200; J2270; J2405; J7030; Q9967

== ENCOUNTER 2018-06-01 12:46 | Inpatient (IN) | payer MEDICARE ==
[2018-06-01] MEDS ORDERED: NACL 0.9% 500 ML 500 ML IV ONE (12:55)
--- NOTE | 2018-06-01 12:57 | Emergency Department Report ---
Blank Doc - Documentation Documentation: This is a 38 y.o. female that presents with abscess to left inner thigh. [place] ent reports history of abscess in same area last year and had to have I&D with Dr. Dill with [facility]. She is concerned of sepsis again. Ordered: Labs Fast track for further evaluation.
[2018-06-01 14:51] LABS: Basophils % (Auto) 0.3 % (0.0-1.8); Eosinophils # (Auto) 0.1 K/mm3 (0.0-0.4); Eosinophils % (Auto) 0.6 % (0.0-4.3); Hematocrit 39.8 % (30.3-42.9); Hemoglobin 13.6 gm/dl (10.1-14.3); Lymphocytes # (Auto) 2.8 K/mm3 (1.2-5.4); Lymphocytes % (Auto) 26.8 % (13.4-35.0); Mean Corpuscular HGB Conc 34 % (30-34); Mean Corpuscular Volume 96 fl (79-97); Monocytes # (Auto) 0.7 K/mm3 (0.0-0.8); Monocytes % (Auto) 6.9 % (0.0-7.3); Platelet Count 156 K/mm3 (140-440); Red Blood Count 4.15 M/mm3 (3.65-5.03); Red Cell Distribution Width 14.1 % (13.2-15.2)
[2018-06-01 15:06] LABS: INR 0.87 (0.87-1.13)
[2018-06-01 15:09] LABS: Alanine Aminotransferase 48 units/L (7-56)
[2018-06-01] MEDS ORDERED: TYLENOL PO ONE (16:04)
[2018-06-01 16:10] LABS: BUN/Creatinine Ratio 18; Blood Urea Nitrogen 14 mg/dL (7-17); Calcium 9.5 mg/dL (8.4-10.2); Hemolysis Index 9
[2018-06-01] MEDS ORDERED: NORCO 5/325 PO ONE (16:22)
[2018-06-01] MEDS ORDERED: ZOFRAN IV ONE (16:22)
[2018-06-01] MEDS ORDERED: MORPHINE IV ONE (16:22)
--- NOTE | 2018-06-01 16:27 | Emergency Department Report ---
- General Chief complaint: Skin/Abscess/Foreign Body Stated complaint: BOIL (L) THIGH Time Seen by Provider: 06/01/18 12:53 Source: patient Mode of arrival: Ambulatory Limitations: No Limitations - History of Present Illness Initial comments: Ms. Lazar is a 38-year-old female with history of insulin-dependent diabetes, HIV (undetectable viral load) on HAART, depression and previous thigh abscess with sepsis presents with abscess, left upper thigh with fever. Symptoms lasted 3 days. The area is tender to touch with severe discomfort. +generalized malaise. Last year, required 23 days of antibiotic therpy, 5 total months of wound care for right thigh abscess. Treated by Dr. Dill, surgeon. Dr. Vogel, infectious disease physician MD complaint: abscess/boil -: Gradual, days(s) (3) Location: LLE Severity: severe Severity scale (0 -10): 8 Quality: aching Consistency: constant Improves with: none Worsens with: movement Context: other (hx of similar presentation) Associated symptoms: fever, malaise - Related Data Home Medications Medication Instructions Recorded Confirmed Last Taken ALPRAZolam [Xanax] 0.25 mg PO HS 04/13/13 09/09/17 09/08/17 Atorvastatin [Lipitor] 40 mg PO HS 04/13/13 09/09/17 09/08/17 Gabapentin [Gralise] 800 mg PO TID 04/13/13 09/09/17 09/08/17 Abacavir/Dolutegravir/Lamivudi 1 each PO DAILY 07/10/15 09/09/17 09/08/17 [Triumeq 600-50-300 mg Tablet] Amitriptyline [Elavil] 50 mg PO DAILY 09/09/17 09/09/17 09/08/17 Citalopram [Celexa] 20 mg PO QDAY 09/09/17 09/09/17 09/08/17 Omeprazole 20 mg PO DAILY 09/09/17 09/09/17 09/08/17 Zolpidem [Ambien] 10 mg PO QHS 09/09/17 09/09/17 09/08/17 Previous Rx's Medication Instructions Recorded Last Taken Type Ibuprofen [Motrin 800 MG tab] 800 mg PO Q8HR PRN #20 tablet 05/21/17 Unknown Rx Docusate Sodium [Colace CAP] 100 mg PO BID PRN #60 capsule 09/15/17 Unknown Rx Insulin Glargine [Lantus VIAL] 40 units SUB-Q QHS 30 Days units 09/15/17 Unknown Rx Insulin Regular, Human [HumuLIN R] 10 units SUB-Q ACHS 30 Days units 09/15/17 Unknown Rx Ondansetron [Zofran ODT TAB] 4 mg PO Q8HR #90 tab.rapdis 09/15/17 Unknown Rx Pantoprazole [Protonix TAB] 20 mg PO QDAY #30 tablet. 09/15/17 Unknown Rx oxyCODONE /ACETAMINOPHEN [Percocet 2 tab PO Q4H PRN #20 tablet 09/15/17 Unknown Rx 5/325 mg] oxyCODONE ER [OxyCONTIN ER TAB] 10 mg PO Q12HR #10 tablet 09/15/17 Unknown Rx cefUROXime [Ceftin] 500 mg PO Q12H #24 tablet 10/17/17 Unknown Rx Naproxen [Naprosyn] 500 mg PO BID #20 tablet 01/08/18 Unknown Rx Nitrofurantoin Monohyd/M-Cryst 100 mg PO BID #14 capsule 01/08/18 Unknown Rx [Macrobid 100 mg Capsule] Phenazopyridine [Pyridium] 200 mg PO TID #6 tab 01/08/18 Unknown Rx Acetaminophen/Codeine [Tylenol 1 tab PO Q6H PRN #10 tab 02/16/18 Unknown Rx /Codeine # 3 tab] Ciprofloxacin HCl [Cipro] 500 mg PO BID #20 tablet 02/16/18 Unknown Rx Phenazopyridine [Pyridium] 200 mg PO BID #9 tab 02/16/18 Unknown Rx Ciprofloxacin HCl [Cipro] 500 mg PO BID #20 tablet 04/08/18 Unknown Rx Phenazopyridine [Pyridium] 200 mg PO BID PRN #10 tab 04/08/18 Unknown Rx Acetaminophen/Codeine [Tylenol 1 tab PO Q6H PRN #12 tab 05/10/18 Unknown Rx /Codeine # 3 tab] Ondansetron [Zofran Odt] 4 mg PO Q8HR PRN #20 tab.rapdis 05/10/18 Unknown Rx Allergies Allergy/AdvReac Type Severity Reaction Status Date / Time iodine Allergy Swelling Verified 06/01/18 12:47 sulfamethoxazole Allergy Rash Verified 06/01/18 12:47 [From Bactrim] trimethoprim [From Bactrim] Allergy Rash Verified 06/01/18 12:47 metformin AdvReac Nausea Verified 06/01/18 12:47 seafood Allergy Rash Uncoded 02/16/18 13:38 Abscess Boil HPI - HPI Chief Complaint: Skin/Abscess/Foreign Body Stated Complaint: BOIL (L) THIGH Time Seen by Provider: 06/01/18 12:53 Duration: 3 Days Location: Lower Extremity Severity: Severe History: Yes Fever, Yes Pain, Yes Previous History, No Purulent Drainage, No Numbness, No Foreign Body, No Insect Bite Home Medications: Home Medications Medication Instructions Recorded Confirmed Last Taken ALPRAZolam [Xanax] 0.25 mg PO HS 04/13/13 09/09/17 09/08/17 Atorvastatin [Lipitor] 40 mg PO HS 04/13/13 09/09/17 09/08/17 Gabapentin [Gralise] 800 mg PO TID 04/13/13 09/09/17 09/08/17 Abacavir/Dolutegravir/Lamivudi 1 each PO DAILY 07/10/15 09/09/17 09/08/17 [Triumeq 600-50-300 mg Tablet] Amitriptyline [Elavil] 50 mg PO DAILY 09/09/17 09/09/17 09/08/17 Citalopram [Celexa] 20 mg PO QDAY 09/09/17 09/09/17 09/08/17 Omeprazole 20 mg PO DAILY 09/09/17 09/09/17 09/08/17 Zolpidem [Ambien] 10 mg PO QHS 09/09/17 09/09/17 09/08/17 Previous Rx's Medication Instructions Recorded Last Taken Type Ibuprofen [Motrin 800 MG tab] 800 mg PO Q8HR PRN #20 tablet 05/21/17 Unknown Rx Docusate Sodium [Colace CAP] 100 mg PO BID PRN #60 capsule 09/15/17 Unknown Rx Insulin Glargine [Lantus VIAL] 40 units SUB-Q QHS 30 Days units 09/15/17 Unknown Rx Insulin Regular, Human [HumuLIN R] 10 units SUB-Q ACHS 30 Days units 09/15/17 Unknown Rx Ondansetron [Zofran ODT TAB] 4 mg PO Q8HR #90 tab.rapdis 09/15/17 Unknown Rx Pantoprazole [Protonix TAB] 20 mg PO QDAY #30 tablet. 09/15/17 Unknown Rx oxyCODONE /ACETAMINOPHEN [Percocet 2 tab PO Q4H PRN #20 tablet 09/15/17 Unknown Rx 5/325 mg] oxyCODONE ER [OxyCONTIN ER TAB] 10 mg PO Q12HR #10 tablet 09/15/17 Unknown Rx cefUROXime [Ceftin] 500 mg PO Q12H #24 tablet 10/17/17 Unknown Rx Naproxen [Naprosyn] 500 mg PO BID #20 tablet 01/08/18 Unknown Rx Nitrofurantoin Monohyd/M-Cryst 100 mg PO BID #14 capsule 01/08/18 Unknown Rx [Macrobid 100 mg Capsule] Phenazopyridine [Pyridium] 200 mg PO TID #6 tab 01/08/18 Unknown Rx Acetaminophen/Codeine [Tylenol 1 tab PO Q6H PRN #10 tab 02/16/18 Unknown Rx /Codeine # 3 tab] Ciprofloxacin HCl [Cipro] 500 mg PO BID #20 tablet 02/16/18 Unknown Rx Phenazopyridine [Pyridium] 200 mg PO BID #9 tab 02/16/18 Unknown Rx Ciprofloxacin HCl [Cipro] 500 mg PO BID #20 tablet 04/08/18 Unknown Rx Phenazopyridine [Pyridium] 200 mg PO BID PRN #10 tab 04/08/18 Unknown Rx Acetaminophen/Codeine [Tylenol 1 tab PO Q6H PRN #12 tab 05/10/18 Unknown Rx /Codeine # 3 tab] Ondansetron [Zofran Odt] 4 mg PO Q8HR PRN #20 tab.rapdis 05/10/18 Unknown Rx Allergies/Adverse Reactions: Allergies Allergy/AdvReac Type Severity Reaction Status Date / Time iodine Allergy Swelling Verified 06/01/18 12:47 sulfamethoxazole Allergy Rash Verified 06/01/18 12:47 [From Bactrim] trimethoprim [From Bactrim] Allergy Rash Verified 06/01/18 12:47 metformin AdvReac Nausea Verified 06/01/18 12:47 seafood Allergy Rash Uncoded 02/16/18 13:38 ED Review of Systems ROS: Stated complaint: BOIL (L) THIGH Other details as noted in HPI Comment: All other systems reviewed and negative Constitutional: fever, malaise Respiratory: denies: cough Cardiovascular: denies: chest pain Gastrointestinal: denies: abdominal pain ED Past Medical Hx - Past Medical History Previous Medical History?: Yes Hx Hypertension: Yes Hx Diabetes: Yes Hx Deep Vein Thrombosis: No Hx Psychiatric Treatment: Yes (anxiety depression) Hx Asthma: Yes Hx HIV: Yes Additional medical history: HIGH CHOLESTEROL - Surgical History Hx Pacemaker: No Hx Internal Defibrillator: No Hx Cholecystectomy: Yes Additional Surgical History: d&c x1, insulin pump placement, TOTAL HYSTERECTOMY, boil removal to R inner thigh - Social History Smoking Status: Current Every Day Smoker Substance Use Type: None - Medications Home Medications: Home Medications Medication Instructions Recorded Confirmed Last Taken Type ALPRAZolam [Xanax] 0.25 mg PO HS 04/13/13 09/09/17 09/08/17 History Atorvastatin [Lipitor] 40 mg PO HS 04/13/13 09/09/17 09/08/17 History Gabapentin [Gralise] 800 mg PO TID 04/13/13 09/09/17 09/08/17 History Abacavir/Dolutegravir/Lamivudi 1 each PO DAILY 07/10/15 09/09/17 09/08/17 History [Triumeq 600-50-300 mg Tablet] Ibuprofen [Motrin 800 MG tab] 800 mg PO Q8HR PRN #20 tablet 05/21/17 09/09/17 Unknown Rx Amitriptyline [Elavil] 50 mg PO DAILY 09/09/17 09/09/17 09/08/17 History Citalopram [Celexa] 20 mg PO QDAY 09/09/17 09/09/17 09/08/17 History Omeprazole 20 mg PO DAILY 09/09/17 09/09/17 09/08/17 History Zolpidem [Ambien] 10 mg PO QHS 09/09/17 09/09/17 09/08/17 History Docusate Sodium [Colace CAP] 100 mg PO BID PRN #60 capsule 09/15/17 Unknown Rx Insulin Glargine [Lantus VIAL] 40 units SUB-Q QHS 30 Days units 09/15/17 Unknown Rx Insulin Regular, Human [HumuLIN R] 10 units SUB-Q ACHS 30 Days units 09/15/17 Unknown Rx Ondansetron [Zofran ODT TAB] 4 mg PO Q8HR #90 tab.rapdis 09/15/17 Unknown Rx Pantoprazole [Protonix TAB] 20 mg PO QDAY #30 tablet.dr 09/15/17 Unknown Rx oxyCODONE /ACETAMINOPHEN [Percocet 2 tab PO Q4H PRN #20 tablet 09/15/17 Unknown Rx 5/325 mg] oxyCODONE ER [OxyCONTIN ER TAB] 10 mg PO Q12HR #10 tablet 09/15/17 Unknown Rx cefUROXime [Ceftin] 500 mg PO Q12H #24 tablet 10/17/17 Unknown Rx Naproxen [Naprosyn] 500 mg PO BID #20 tablet 01/08/18 Unknown Rx Nitrofurantoin Monohyd/M-Cryst 100 mg PO BID #14 capsule 01/08/18 Unknown Rx [Macrobid 100 mg Capsule] Phenazopyridine [Pyridium] 200 mg PO TID #6 tab 01/08/18 Unknown Rx Acetaminophen/Codeine [Tylenol 1 tab PO Q6H PRN #10 tab 02/16/18 Unknown Rx /Codeine # 3 tab] Ciprofloxacin HCl [Cipro] 500 mg PO BID #20 tablet 02/16/18 Unknown Rx Phenazopyridine [Pyridium] 200 mg PO BID #9 tab 02/16/18 Unknown Rx Ciprofloxacin HCl [Cipro] 500 mg PO BID #20 tablet 04/08/18 Unknown Rx Phenazopyridine [Pyridium] 200 mg PO BID PRN #10 tab 04/08/18 Unknown Rx Acetaminophen/Codeine [Tylenol 1 tab PO Q6H PRN #12 tab 05/10/18 Unknown Rx /Codeine # 3 tab] Ondansetron [Zofran Odt] 4 mg PO Q8HR PRN #20 tab.rapdis 05/10/18 Unknown Rx ED Physical Exam - General Limitations: No Limitations General appearance: alert, in no apparent distress - Head Head exam: Present: atraumatic, normocephalic - Eye Eye exam: Present: normal appearance - ENT ENT exam: Present: mucous membranes moist - Neck Neck exam: Present: normal inspection - Respiratory Respiratory exam: Present: normal lung sounds bilaterally. Absent: respiratory distress, wheezes, rales, rhonchi - Cardiovascular Cardiovascular Exam: Present: normal rhythm, tachycardia, normal heart sounds. Absent: systolic murmur, diastolic murmur, rubs, gallop - GI/Abdominal GI/Abdominal exam: Present: soft, normal bowel sounds. Absent: distended, tenderness, guarding, rebound - Extremities Exam Extremities exam: Present: other (tender large erythematous area of swelling at the left medial upper thigh with erythema into the groin) - Back Exam Back exam: Present: normal inspection - Neurological Exam Neurological exam: Present: alert, oriented X3 - Psychiatric Psychiatric exam: Present: normal affect, normal mood - Skin Skin exam: Present: erythema. Absent: rash ED Course Vital Signs 06/01/18 06/01/18 06/01/18 12:48 15:36 15:58 Temperature 100.6 F H 101.0 F H Pulse Rate 119 H Respiratory 20 Rate Blood Pressure 123/85 O2 Sat by Pulse 98 97 Oximetry 06/01/18 06/01/18 06/01/18 16:00 16:31 17:01 Temperature Pulse Rate 120 H 121 H Respiratory 25 H 17 Rate Blood Pressure 179/91 124/51 90/54 O2 Sat by Pulse 93 94 95 Oximetry 06/01/18 06/01/18 06/01/18 17:19 17:30 17:45 Temperature 98.5 F Pulse Rate 111 H 114 H Respiratory 18 28 H Rate Blood Pressure 96/45 96/45 O2 Sat by Pulse 93 95 Oximetry ED Medical Decision Making - Lab Data Result diagrams: 06/01/18 14:33 06/01/18 14:33 Laboratory Results - last 24 hr 06/01/18 06/01/18 06/01/18 12:54 14:33 14:33 WBC 10.3 RBC 4.15 Hgb 13.6 Hct 39.8 MCV 96 MCH 33 H MCHC 34 RDW 14.1 Plt Count 156 Lymph % (Auto) 26.8 [place] % (Auto) 6.9 Eos % (Auto) 0.6 Baso % (Auto) 0.3 Lymph # 2.8 [place] # 0.7 Eos # 0.1 Baso # 0.0 Seg Neutrophils % 65.4 Seg Neutrophils # 6.7 PT 12.4 INR 0.87 Sodium Potassium Chloride Carbon Dioxide Anion Gap BUN Creatinine Estimated GFR BUN/Creatinine Ratio Glucose POC Glucose 447 H Calcium Total Bilirubin AST ALT Alkaline Phosphatase Total Protein Albumin Albumin/Globulin Ratio 06/01/18 14:33 WBC RBC Hgb Hct MCV MCH MCHC RDW Plt Count Lymph % (Auto) [place] % (Auto) Eos % (Auto) Baso % (Auto) Lymph # [place] # Eos # Baso # Seg Neutrophils % Seg Neutrophils # PT INR Sodium 130 L Potassium 4.4 Chloride 90.7 L Carbon Dioxide 22 Anion Gap 22 BUN 14 Creatinine 0.8 Estimated GFR > 60 BUN/Creatinine Ratio 18 Glucose 561 H* POC Glucose Calcium 9.5 Total Bilirubin 0.50 AST 28 ALT 48 Alkaline Phosphatase 150 H Total Protein 8.4 H Albumin 4.0 Albumin/Globulin Ratio 0.9 - EKG Data 06/01/18 16:53 EKG obtained 1300 Sinus tachycardia rate 120 bpm normal axis normal intervals no ST-T signs of ischemia - Radiology Data Radiology results: image reviewed interpreted by me: Upon personal review of CT images, did not see significant inflammatory changes, will defer to radiology review - Medical Decision Making Ms. Lazar presents with left thigh abscess. I consulted Dr. Dalal, general surgeon who is familiar patient. She agreed with CT scan imaging. Zosyn and vancomycin initiated in ED. IV fluid and insulin order to address hyperglycemi a. Critical care attestation.: If time is entered above; I have spent that time in minutes in the direct care of this critically ill patient, excluding procedure time. ED Disposition Clinical Impression: Abscess of left thigh, Cellulitis of groin, left, Hyperglycemia due to type 1 diabetes mellitus Disposition: OP ADMIT IP TO THIS HOSP Is pt being admited?: Yes Does the pt Need Aspirin: No Condition: Stable
[2018-06-01] MEDS ORDERED: HumuLIN R IV ONE ×2 (16:35→19:27)
[2018-06-01] MEDS ORDERED: NACL 0.9% 1000 ML 1,000 ML IV ONE (16:36)
[2018-06-01] MEDS: ZOSYN/NS 4.5GM/100ML 4.5 GM/100 ML VIAL IV SCH ×2 (17:10→23:21)
--- NOTE | 2018-06-01 17:17 | History and Physical Report ---
History of Present Illness Chief complaint: I have a rash on my leg History of present illness: 38 YO Female with HIV(Undedectable Viral Load) on HAART Therapy, [place], HTN, Nicotine Dependence, DM presents to ED for evaluation. Pt has experienced redness, fever, and pain to the left thigh over the past 3 days with worsening symptoms over the past 2 days. Pt states that pain is 8/10, constant. Pt seen and evaluated in ED and found to have Sepsis secondary to Left thigh Cellulitis. Pt admitted to medical floor, and initiated on sepsis protocol. Surgery team consulted in ED. ID service consulted in ED. Past History Past Medical History: diabetes, HIV/AIDS, hypertension Past Surgical History: cholecystectomy, hysterectomy, Other (Insulinpump placement, ) Social history: single, smoking. denies: alcohol abuse Family history: diabetes, hypertension Medications and Allergies Allergies Allergy/AdvReac Type Severity Reaction Status Date / Time iodine Allergy Swelling Verified 06/01/18 12:47 sulfamethoxazole Allergy Rash Verified 06/01/18 12:47 [From Bactrim] trimethoprim [From Bactrim] Allergy Rash Verified 06/01/18 12:47 metformin AdvReac Nausea Verified 06/01/18 12:47 seafood Allergy Rash Uncoded 02/16/18 13:38 Home Medications Medication Instructions Recorded Confirmed Last Taken Type Atorvastatin [Lipitor] 40 mg PO HS 04/13/13 06/02/18 09/08/17 History Gabapentin [Gralise] 800 mg PO TID 04/13/13 06/02/18 09/08/17 History Abacavir/Dolutegravir/Lamivudi 1 each PO DAILY 07/10/15 06/02/18 09/08/17 History [Triumeq 600-50-300 mg Tablet] Ibuprofen [Motrin 800 MG tab] 800 mg PO Q8HR PRN #20 tablet 05/21/17 06/02/18 Unknown Rx ARIPiprazole [Abilify TAB] 15 mg PO QDAY 06/02/18 06/02/18 Unknown History Lispro Insulin [Humalog] 80 units SQ QMONTH 06/02/18 06/02/18 Unknown History [place] Carbonate [Eskalith] 300 mg PO BID 06/02/18 06/02/18 Unknown History Mirtazapine 45 mg PO QHS 06/02/18 06/02/18 Unknown History buPROPion XL [Wellbutrin XL] 150 mg PO QDAY 06/02/18 06/02/18 Unknown History Active Meds: Active Medications Piperacillin Sod/Tazobactam Sod (Zosyn/Ns 4.5gm/100ml) 4.5 gm in 100 mls @ 200 mls/hr IV Q8HR GRIS; Protocol Sodium Chloride (Nacl 0.9% 1000 Ml) 1,000 mls @ 999 mls/hr IV BOLUS ONE Stop: 06/01/18 17:36 Review of Systems Ears, nose, mouth and throat: no ear pain, no tinnitis, no nose pain Breasts: no change in shape, no swelling, no mass Cardiovascular: no chest pain, no palpitations, no edema Respiratory: respiratory infections, no cough, no excessive sputum, no shortness of breath Gastrointestinal: no nausea, no vomiting, no diarrhea Genitourinary Female: no pelvic pain, no flank pain, no menorrhagia, no urinary frequency, no urgency Rectal: no pain, no incontinence, no bleeding Integumentary: redness, no rash, no pruritis, no sores Neurological: no paralysis, no weakness, no parathesias Psychiatric: no anxiety, no sleep disturbances, no hypersomnia, no change in appetite Endocrine: no cold intolerance, no excessive thirst, no polydipsia, no polyuria Hematologic/Lymphatic: no easy bruising, no easy bleeding, no lymphadenopathy, no lymphedema Allergic/Immunologic: no urticaria, no allergic rhinitis, no wheezing Exam - Constitutional Vitals: Temp Pulse Resp BP Pulse Ox 101.0 F H 120 H 25 H 124/51 94 06/01/18 15:58 06/01/18 16:31 06/01/18 16:31 06/01/18 16:31 06/01/18 16:31 General appearance: Present: mild distress - EENT Eyes: Present: PERRL ENT: hearing intact, clear oral mucosa - Neck Neck: Present: supple, normal ROM - Respiratory Respiratory effort: normal Respiratory: bilateral: CTA - Cardiovascular Heart Sounds: Present: S1 & S2. Absent: rub, click - Extremities Extremities: pulses symmetrical, No edema Peripheral Pulses: within normal limits - Abdominal General gastrointestinal: Present: soft, non-tender, non-distended, normal bowel sounds Female genitourinary: Present: normal - Integumentary Integumentary: Present: clear, warm, dry - Musculoskeletal Musculoskeletal: gait normal, strength equal bilaterally - Psychiatric Psychiatric: appropriate mood/affect, intact judgment & insight - Neurologic Neurologic: CNII-XII intact, moves all extremities Results - Labs CBC & Chem 7: 06/02/18 03:50 06/02/18 03:50 Labs: Abnormal lab results 06/01/18 06/01/18 06/01/18 Range/Units 12:54 14:33 14:33 MCH 33 H (28-32) pg Sodium 130 L (137-145) mmol/L Chloride 90.7 L (98-107) mmol/L Glucose 561 H* (65-100) mg/dL POC Glucose 447 H (70-105) Alkaline Phosphatase 150 H (35-129) units/L Total Protein 8.4 H (6.3-8.2) g/dL Assessment and Plan - Patient Problems (1) Sepsis Current Visit: Yes Status: Acute Qualifiers: Sepsis type: sepsis due to unspecified organism Qualified Code(s): A41.9 - Sepsis, unspecified organism Plan to address problem: IV antibiotic therapy, blood cultures, IVF resuscitation therapy, serial lactic acid level, CBC,CMP, urinalysis, CT LLE (2) Nicotine dependence Current Visit: Yes Status: Acute Qualifiers: Nicotine product type: cigarettes Plan to address problem: Smoking cessation counseling, supportive care. (3) Obesity hypoventilation syndrome Current Visit: Yes Status: Acute Plan to address problem: Supplemental oxygen, nebulizer therapy, NIPPV as clinically indicated, pulse oximetry. (4) Cellulitis of groin, left Current Visit: Yes Status: Acute Plan to address problem: IV antibiotic therapy, CT Left groin, pain control. (5) Diabetes Current Visit: Yes Status: Acute Plan to address problem: ADA Diet, insulin, Accu check (6) HIV (human immunodeficiency virus infection) Current Visit: Yes Status: Acute Plan to address problem: ID consulted, resume HAART therapy (7) Diabetes Current Visit: Yes Status: Acute Plan to address problem: ADA diet, insulin, accu check (8) DVT prophylaxis Current Visit: Yes Status: Acute Plan to address problem: SCD to BLE while in bed
[2018-06-01 17:18] LABS: Bacteria,Urine 1+ /HPF (Negative); Bilirubin,Urine NEG (Negative); Blood,Urine SM (Negative); Color,Urine Yellow (Yellow); Mucus,Urine FEW /HPF; Urobilinogen,Urine < 2.0 mg/dL (<2.0)
[2018-06-01] MEDS ORDERED: SODIUM CHLORIDE FLUSH SYRINGE 10 ML IV PRN (17:19)
[2018-06-01] MEDS ORDERED: PROVENTIL IH PRN (17:19)
[2018-06-01] MEDS ORDERED: NACL 0.9% 1000 ML IV ONE (17:21)
[2018-06-01] MEDS ORDERED: ZOFRAN ODT PO PRN (17:23)
[2018-06-01] MEDS ORDERED: COLACE PO PRN (17:23)
[2018-06-01] MEDS ORDERED: IBUPROFEN PO PRN (17:23)
[2018-06-01] MEDS ORDERED: MACROBID ONE (19:40)
[2018-06-01] MEDS ORDERED: HumuLIN R ONE (19:40)
[2018-06-01] MEDS ORDERED: NACL 0.9% 1000 ML 1,000 ML ONE (19:40)
[2018-06-01] MEDS ORDERED: PERCOCET 5/325 ONE (19:42)
[2018-06-01] MEDS: MACROBID PO SCH ×2 (19:49→23:53)
[2018-06-01] MEDS ORDERED: NEURONTIN ONE (19:59)
[2018-06-01] MEDS: NEURONTIN PO SCH (19:59)
[2018-06-01] MEDS ORDERED: GABAPENTIN 800 MG PO SCH (20:00)
--- NOTE | 2018-06-01 20:07 | Cat Scan Report ---
FINAL REPORT EXAM: CT PELVIS WO CON HISTORY: left thigh abscess, pelvic cellulitis TECHNIQUE: Standard unenhanced CT of the pelvis at 2.5 mm axial increments PRIORS: None. FINDINGS: There is vertical linear stranding from the umbilical region to the symphysis pubis, likely due to a surgical incision site. There is no evidence for abnormal fluid collection to suggest abscess. Urinary bladder contains an air-fluid level within it which is abnormal without the presence of a Fol ey catheter. There is also a shaggy margin and mild wall thickening anteriorly along the bladder wall . Findings are concerning for cystitis unless the patient has had recent instrumentation. The inguinal lymph nodes are borderline prominent and mildly enlarged bilaterally. The other visualized pelvic organs are unremarkable. The uterus has been surgically removed. The visu alized bowel loops have normal caliber. No fluid collection or free air is seen within the pelvis. Bony structures show no focal abnormalities. IMPRESSION: 1. No definite abnormal fluid collection identified to suggest abscess. No significant subcutaneous s tranding is seen in the fat other than the midline the incision in the lower abdomen. 2. Air-fluid levels present in the urinary bladder which is abnormal without the presence of a Perry catheter. Correlation with any recent instrumentation is needed. There is a mild wall thickening ante riorly with a shaggy margin. Findings are consistent with acute cystitis which should be correlated c linically.
--- NOTE | 2018-06-01 20:49 | Cat Scan Report ---
FINAL REPORT EXAM: CT LOWER EXTREMITY LT W CON HISTORY: left medial thigh abscess TECHNIQUE: enhanced CT of the left hip and thigh at 2.5 mm axial intervals. Coronal and sagittal r econstruction was also performed. PRIORS: CT pelvis 06/01/2018 at 1853 hours FINDINGS: Bony structures: No evidence for acute fracture or dislocation is seen. Bony mineralization is normal . Joint spaces: Joint spaces are maintained. Soft tissues: There is inflammatory stranding present in the medial proximal thigh. This extends from the level of the symphysis pubis through the proximal 3rd of the femoral shaft. There is skin thicke jesica in this region particularly along the distal aspect of the stranding. No well-defined fluid wei ection is noted however. No abnormal enhancement is noted. No air in the soft tissues is seen. No rad iopaque foreign bodies are noted. Incidental: Again noted is the air-fluid level in the urinary bladder with abnormal wall thickening a nteriorly and adjacent haziness in the fat. Findings can be consistent with cystitis. There are borde rline and mildly enlarged bilateral inguinal lymph nodes again noted. IMPRESSION: 1. Inflammatory stranding in the subcutaneous fat involving the proximal thigh medially. Findings are consistent with cellulitis. There is no well-defined abscess. 2. no acute bony abnormality identified in the left hip and thigh. 3. Other findings again noted in the bladder and inguinal lymph nodes as previously mentioned.
[2018-06-01] MEDS: ZOFRAN IV PRN (23:15)
[2018-06-01] MEDS: SODIUM CHLORIDE FLUSH SYRINGE 10 ML IV SCH (23:16)
[2018-06-01] MEDS: NACL 0.9% 1000 ML 1,000 ML IV SCH (23:18)
[2018-06-01] MEDS: HumuLIN R SUB-Q SCH (23:27)
[2018-06-01] MEDS: CLEOCIN 600 MG/50 mL 600 MG/50 ML BAG IV SCH (23:27)
[2018-06-01] MEDS: XANAX PO SCH (23:28)
[2018-06-01] MEDS: AMBIEN PO SCH (23:29)
[2018-06-01] MEDS: PERCOCET 5/325 PO PRN (23:30)
[2018-06-01] MEDS: LANTUS SUB-Q SCH (23:38)
[2018-06-02] MEDS: TYLENOL PO PRN ×2 (01:16→22:55)
[2018-06-02 04:15] LABS: Hematocrit 37.9 % (30.3-42.9); Hemoglobin 12.6 gm/dl (10.1-14.3); Mean Corpuscular HGB Conc 33 % (30-34); Mean Corpuscular Volume 98 fl (79-97); Platelet Count 127 K/mm3 (140-440); Red Blood Count 3.88 M/mm3 (3.65-5.03); Red Cell Distribution Width 14.3 % (13.2-15.2)
[2018-06-02 04:27] LABS: BUN/Creatinine Ratio 21; Blood Urea Nitrogen 17 mg/dL (7-17); Hemolysis Index 30
[2018-06-02] MEDS: CLEOCIN 600 MG/50 mL 600 MG/50 ML BAG IV SCH ×2 (05:56→16:56)
[2018-06-02] MEDS: ZOSYN/NS 4.5GM/100ML 4.5 GM/100 ML VIAL IV SCH ×2 (06:04→15:43)
[2018-06-02] MEDS: PERCOCET 5/325 PO PRN (08:56)
[2018-06-02] MEDS: NEURONTIN PO SCH ×4 (09:00→22:58)
[2018-06-02] MEDS: ZOFRAN IV PRN (09:08)
[2018-06-02] MEDS: SODIUM CHLORIDE FLUSH SYRINGE 10 ML IV SCH ×2 (09:09→22:56)
[2018-06-02] MEDS: HumuLIN R SUB-Q SCH ×4 (09:55→22:56)
[2018-06-02] MEDS ORDERED: NON-FORMULARY (Omeprazole [Omeprazole] 20 MG) PO SCH (10:00)
[2018-06-02] MEDS ORDERED: NON-FORMULARY (Abacavir/Dolutegravir/Lamivudi [Triumeq 600-50-300 Mg Tablet] 1 EACH) PO SCH (10:00)
--- NOTE | 2018-06-02 11:00 | Consultation ---
History of Present Illness Consult date: 06/02/18 Chief complaint: left thigh abscess - History of present illness History of present illness: 38 yo F with hx of poorly controlled diabetes who is well known to our service for right thigh necrotizing fasciitis in the past which required debridement by Dr. Dill and several months of aggressive wound care. The patient states that for the last 2-3 days she has noticed redness and pain of the left inner thigh and feels she may have developed an abscess. She has not been "feeling well" for the last several days and has not been using her insulin pump appropriately. Her glucose in the ER was >500. She was febrile and tachycardic. She denies f/c at home. No drainage from the thigh Past History Past Medical History: diabetes, HIV/AIDS, hypertension Past Surgical History: cholecystectomy, hysterectomy, Other (Insulinpump placement, ) Social history: single, smoking. denies: alcohol abuse Family history: diabetes, hypertension Medications and Allergies Allergies Allergy/AdvReac Type Severity Reaction Status Date / Time iodine Allergy Swelling Verified 06/01/18 12:47 sulfamethoxazole Allergy Rash Verified 06/01/18 12:47 [From Bactrim] trimethoprim [From Bactrim] Allergy Rash Verified 06/01/18 12:47 metformin AdvReac Nausea Verified 06/01/18 12:47 seafood Allergy Rash Uncoded 02/16/18 13:38 Home Medications Medication Instructions Recorded Confirmed Last Taken Type Atorvastatin [Lipitor] 40 mg PO HS 04/13/13 06/02/18 09/08/17 History Gabapentin [Gralise] 800 mg PO TID 04/13/13 06/02/18 09/08/17 History Abacavir/Dolutegravir/Lamivudi 1 each PO DAILY 07/10/15 06/02/18 09/08/17 History [Triumeq 600-50-300 mg Tablet] Ibuprofen [Motrin 800 MG tab] 800 mg PO Q8HR PRN #20 tablet 05/21/17 06/02/18 Unknown Rx ARIPiprazole [Abilify TAB] 15 mg PO QDAY 06/02/18 06/02/18 Unknown History Lispro Insulin [Humalog] 80 units SQ QMONTH 06/02/18 06/02/18 Unknown History [place] Carbonate [Eskalith] 300 mg PO BID 06/02/18 06/02/18 Unknown History Mirtazapine 45 mg PO QHS 06/02/18 06/02/18 Unknown History buPROPion XL [Wellbutrin XL] 150 mg PO QDAY 06/02/18 06/02/18 Unknown History Active Meds: Active Medications Abacavir Sulfate (Ziagen) 600 mg PO QDAY [facility] Acetaminophen (Tylenol) 650 mg PO Q4H PRN PRN Reason: Pain MILD(1-3)/Fever >100.5/[place] Last Admin: 06/02/18 01:16 Dose: 650 mg Documented by: Albuterol (Proventil) 2.5 mg IH Q4HRT PRN PRN Reason: Shortness Of Breath Alprazolam (Xanax) 0.25 mg PO HS [facility] Last Admin: 06/01/18 23:28 Dose: 0.25 mg Documented by: Amitriptyline HCl (Elavil) 50 mg PO DAILY [facility] Atorvastatin Calcium (Lipitor) 40 mg PO HS [facility] Last Admin: 06/01/18 23:29 Dose: 40 mg Documented by: Citalopram Hydrobromide (Celexa) 20 mg PO QDAY [facility] Docusate Sodium (Colace) 100 mg PO BID PRN PRN Reason: Pain Last Admin: 06/01/18 23:29 Dose: 100 mg Documented by: Gabapentin (Neurontin) 800 mg PO TID [facility] Last Admin: 06/02/18 10:40 Dose: Not Given Documented by: Piperacillin Sod/Tazobactam Sod (Zosyn/Ns 4.5gm/100ml) 4.5 gm in 100 mls @ 200 mls/hr IV Q8HR [facility]; Protocol Last Admin: 06/02/18 06:04 Dose: 200 mls/hr Documented by: Clindamycin HCl (Cleocin 600 Mg/50 Ml) 600 mg in 50 mls @ 100 mls/hr IV Q8HR [facility]; Protocol Last Admin: 06/02/18 05:56 Dose: 100 mls/hr Documented by: Sodium Chloride (Nacl 0.9% 1000 Ml) 1,000 mls @ 150 mls/hr IV DIRECT [facility] Last Admin: 06/01/18 23:18 Dose: 150 mls/hr Documented by: Ibuprofen (Motrin) 800 mg PO Q8HR PRN PRN Reason: Pain , Severe (7-10) Last Admin: 06/01/18 23:29 Dose: 800 mg Documented by: Insulin Glargine (Lantus) 40 units SUB-Q QHS [facility] Last Admin: 06/01/18 23:38 Dose: 40 units Documented by: Insulin Human Regular (Humulin R) 10 units SUB-Q ACHS [facility] Last Admin: 06/02/18 10:48 Dose: 10 units Documented by: Lamivudine (Epivir) 300 mg PO QDAY [facility] Morphine Sulfate (Morphine) 2 mg IV Q3H PRN PRN Reason: Pain, Moderate (4-6) Nitrofurantoin Macrocrystals (Macrobid) 100 mg PO BID [facility] Last Admin: 06/01/18 23:53 Dose: 100 mg Documented by: Ondansetron HCl (Zofran) 4 mg IV Q8H PRN PRN Reason: Nausea And Vomiting Last Admin: 06/02/18 09:08 Dose: 4 mg Documented by: Ondansetron HCl (Zofran Odt) 4 mg PO Q8HR PRN PRN Reason: Nausea Oxycodone/Acetaminophen (Percocet 5/325) 1 tab PO Q6H PRN PRN Reason: Pain, Moderate (4-6) Last Admin: 06/01/18 23:30 Dose: 1 tab Documented by: Pantoprazole Sodium (Protonix) 20 mg PO QDAY [facility] Sodium Chloride (Sodium Chloride Flush Syringe 10 Ml) 10 ml IV BID [facility] Last Admin: 06/02/18 09:09 Dose: 10 ml Documented by: Sodium Chloride (Sodium Chloride Flush Syringe 10 Ml) 10 ml IV PRN PRN PRN Reason: LINE FLUSH Zolpidem Tartrate (Ambien) 10 mg PO QHS [facility] Last Admin: 06/01/18 23:29 Dose: 10 mg Documented by: Review of Systems All systems: negative (10 pt ROS performed and negative except for that listed in HPI) Exam Vital Signs Temp Pulse Resp BP Pulse Ox 100.6 F H 119 H 20 123/85 98 06/01/18 12:48 06/01/18 12:48 06/01/18 12:48 06/01/18 12:48 06/01/18 12:48 Narrative exam: Gen: AAOx3. NAD ENT: no scleral icterus or conjunctival pallor CV: s1, s2+ resp: even and unlabored Abd: soft Ext: L upper thigh/groin cellulitis, TTP. Minimal fluctuance. +Induration. No necrosis of skin. No drainage Results - Labs 06/02/18 03:50 06/02/18 03:50 Abnormal lab results 06/01/18 06/01/18 06/01/18 Range/Units 12:54 14:33 14:33 MCV (79-97) fl MCH 33 H (28-32) pg Plt Count (140-440) K/mm3 Sodium 130 L (137-145) mmol/L Chloride 90.7 L (98-107) mmol/L Carbon Dioxide (22-30) mmol/L Glucose 561 H* (65-100) mg/dL POC Glucose 447 H (70-105) Lactic Acid (0.7-2.0) mmol/L Alkaline Phosphatase 150 H (35-129) units/L Total Protein 8.4 H (6.3-8.2) g/dL Urine WBC (Auto) (0.0-6.0) /HPF 06/01/18 06/01/18 06/01/18 Range/Units 16:30 19:24 19:53 MCV (79-97) fl MCH (28-32) pg Plt Count (140-440) K/mm3 Sodium (137-145) mmol/L Chloride (98-107) mmol/L Carbon Dioxide (22-30) mmol/L Glucose (65-100) mg/dL POC Glucose 425 H (70-105) Lactic Acid 2.20 H* (0.7-2.0) mmol/L Alkaline Phosphatase (35-129) units/L Total Protein (6.3-8.2) g/dL Urine WBC (Auto) 10.0 H (0.0-6.0) /HPF 06/01/18 06/02/18 06/02/18 Range/Units 21:09 03:50 03:50 MCV 98 H (79-97) fl MCH (28-32) pg Plt Count 127 L (140-440) K/mm3 Sodium 129 L (137-145) mmol/L Chloride 92.7 L (98-107) mmol/L Carbon Dioxide 20 L (22-30) mmol/L Glucose 395 H (65-100) mg/dL POC Glucose 359 H (70-105) Lactic Acid (0.7-2.0) mmol/L Alkaline Phosphatase (35-129) units/L Total Protein (6.3-8.2) g/dL Urine WBC (Auto) (0.0-6.0) /HPF 06/02/18 06/02/18 Range/Units 07:36 10:37 MCV (79-97) fl MCH (28-32) pg Plt Count (140-440) K/mm3 Sodium (137-145) mmol/L Chloride (98-107) mmol/L Carbon Dioxide (22-30) mmol/L Glucose (65-100) mg/dL POC Glucose 253 H 322 H (70-105) Lactic Acid (0.7-2.0) mmol/L Alkaline Phosphatase (35-129) units/L Total Protein (6.3-8.2) g/dL Urine WBC (Auto) (0.0-6.0) /HPF Diabetes panel 06/01/18 06/02/18 Range/Units 14:33 03:50 Sodium 130 L 129 L (137-145) mmol/L Potassium 4.4 4.3 (3.6-5.0) mmol/L Chloride 90.7 L 92.7 L (98-107) mmol/L Carbon Dioxide 22 20 L (22-30) mmol/L BUN 14 17 (7-17) mg/dL Creatinine 0.8 0.8 (0.7-1.2) mg/dL Glucose 561 H* 395 H (65-100) mg/dL Calcium 9.5 9.0 (8.4-10.2) mg/dL AST 28 (5-40) units/L ALT 48 (7-56) units/L Alkaline Phosphatase 150 H (35-129) units/L Total Protein 8.4 H (6.3-8.2) g/dL Albumin 4.0 (3.9-5) g/dL Calcium panel 06/01/18 06/02/18 Range/Units 14:33 03:50 Calcium 9.5 9.0 (8.4-10.2) mg/dL Albumin 4.0 (3.9-5) g/dL Pituitary panel 06/01/18 06/02/18 Range/Units 14:33 03:50 Sodium 130 L 129 L (137-145) mmol/L Potassium 4.4 4.3 (3.6-5.0) mmol/L Chloride 90.7 L 92.7 L (98-107) mmol/L Carbon Dioxide 22 20 L (22-30) mmol/L BUN 14 17 (7-17) mg/dL Creatinine 0.8 0.8 (0.7-1.2) mg/dL Glucose 561 H* 395 H (65-100) mg/dL Calcium 9.5 9.0 (8.4-10.2) mg/dL Adrenal panel 06/01/18 06/02/18 Range/Units 14:33 03:50 Sodium 130 L 129 L (137-145) mmol/L Potassium 4.4 4.3 (3.6-5.0) mmol/L Chloride 90.7 L 92.7 L (98-107) mmol/L Carbon Dioxide 22 20 L (22-30) mmol/L BUN 14 17 (7-17) mg/dL Creatinine 0.8 0.8 (0.7-1.2) mg/dL Glucose 561 H* 395 H (65-100) mg/dL Calcium 9.5 9.0 (8.4-10.2) mg/dL Total Bilirubin 0.50 (0.1-1.2) mg/dL AST 28 (5-40) units/L ALT 48 (7-56) units/L Alkaline Phosphatase 150 H (35-129) units/L Total Protein 8.4 H (6.3-8.2) g/dL Albumin 4.0 (3.9-5) g/dL - Imaging CT scan - pelvis: report reviewed, image reviewed Additional studies: CT LLE Assessment and Plan 38 yo F with 1. abscess/cellulitis of left thigh 2. sepsis 3. poorly controlled DM Plan; 1. NPO 2. aggressive IVF hydration 3. prn pain control 4. Pt with abscess, fevers, tachycardia, and significant pain of left thigh. Pt will need incision and drainage of abscess in OR with possible debridement of underlying tissue. I explained all risks, benefits, and alternatives to surgery and questions answered. Consent obtained. 5. will obtain cultures in OR 6. strict glucose control 7. repeat BMP daily 8. IV abx, will likely need ID c/s Thank you, please call with questions
[2018-06-02] MEDS ORDERED: SUBLIMAZE ONE (11:43)
[2018-06-02] MEDS ORDERED: VERSED ONE (11:59)
[2018-06-02] MEDS ORDERED: DIPRIVAN 10 MG/ML IV ONE (12:13)
[2018-06-02] MEDS ORDERED: DILAUDID ONE (12:13)
[2018-06-02] MEDS ORDERED: XYLOCAINE MPF 2% ONE (12:14)
[2018-06-02] MEDS ORDERED: HumuLIN R ONE (12:27)
[2018-06-02] MEDS ORDERED: SUBLIMAZE IV ONE ×2 (12:30)
[2018-06-02] MEDS ORDERED: HumuLIN R SUB-Q ONE (12:30)
[2018-06-02] MEDS ORDERED: MARCAINE 0.25% INFILTRATI ONE ×2 (12:50→13:15)
[2018-06-02] MEDS ORDERED: XYLOCAINE 1% 20 mL ONE (12:50)
[2018-06-02] MEDS ORDERED: VERSED IV NR (13:00)
[2018-06-02] MEDS ORDERED: ZOFRAN ONE (13:05)
[2018-06-02] MEDS ORDERED: TORADOL ONE (13:06)
--- NOTE | 2018-06-02 13:11 | Post Operative Note ---
Date of procedure: 06/02/18 Pre-op diagnosis: cellulitis and abscess or left thigh Post-op diagnosis: same Findings: Indurated and inflamed skin and subcutaneous tissue. Edema below the subcutaneous tissue. Inflammatory fluid, no pus. Procedure: incision and drainage of left thigh abscess, exploration of left upper thigh Anesthesia: BERTHAA, local Surgeon: ANA CORTES Estimated blood loss: minimal Pathology: list (wound culture) Specimen disposition: to lab Condition: stable Disposition: PACU
[2018-06-02] MEDS ORDERED: XYLOCAINE 1% 20 mL INFILTRATI ONE (13:16)
[2018-06-02] MEDS ORDERED: NACL 0.9% IR ONE (13:16)
[2018-06-02] MEDS ORDERED: HumuLIN R IV PRN (13:32)
[2018-06-02] MEDS: MACROBID PO SCH ×2 (13:32→22:55)
[2018-06-02] MEDS ORDERED: ZOFRAN IV ONE ×2 (14:00→15:00)
[2018-06-02] MEDS ORDERED: DILAUDID IV PRN (14:05)
--- NOTE | 2018-06-02 14:09 | Anesthesia Consultation ---
Anesthesia Consult and Med Hx Date of service: 06/02/18 - Airway Anesthetic Teeth Evaluation: Good ROM Head & Neck: Adequate Mental/Hyoid Distance: Adequate Mallampati Class: Class II Intubation Access Assessment: Possibly Difficult - Pulmonary Exam CTA: Yes - Cardiac Exam Cardiac Exam: RRR - Pre-Operative Health Status ASA Pre-Surgery Classification: ASA3 Proposed Anesthetic Plan: General - Pulmonary Hx Smoking: Yes (1/2PPD x 27yrs) Hx Asthma: Yes (no inhaler use in several years) Hx Respiratory Symptoms: No COPD: No Hx Sleep Apnea: Yes - Cardiovascular System Hx Hypertension: Yes Hx Heart Attack/AMI: No Hx Percutaneous Transluminal Coronary Angioplasty (PTCA): No Hx Cardia Arrhythmia: No - Central Nervous System Hx Neuromuscular Disorder: Yes (neuropathy right leg ) Hx Seizures: No CVA: No Hx Psychiatric Problems: No - Gastrointestinal Hx Gastroesophageal Reflux Disease: No - Endocrine Hx Renal Disease: No Hx Liver Disease: No Hx Insulin Dependent Diabetes: Yes (poorly controlled) Hx Thyroid Disease: No - Hematic Hx Anemia: Yes - Other Systems Hx Obesity: Yes - Additional Comments Anesthesia Medical History Comments: Hx HIV on HAART, HTN, HLD, smoker, IDDM with med noncompliance, and sepsis 2/2 left thigh cellulitis. No hx anesthetic complications. Glucose poorly controlled this admission. EKG performed in ED shows sinus tachycardia.
--- NOTE | 2018-06-02 14:09 | Anesthesia Day of Surgery ---
Anesthesia Day of Surgery - Day of Surgery Patient Examined: Yes Patient H&P Reviewed: Yes Patient is NPO: Yes
--- NOTE | 2018-06-02 14:27 | Post Anesthesia Evaluation ---
- Post Anesthesia Evaluation Patient Participated: Yes Airway Patent: Yes Stable Respiratory Function: Yes Nausea/Vomiting: No Temp > 96.8F: Yes Pain Manageable: Yes Adequeate Hydration: Yes Anesthesia Complications: No
--- NOTE | 2018-06-02 14:41 | Progress Note ---
Assessment and Plan Assessment and plan: Sepsis due to left thigh abscess. Blood cultures drawn Left thigh abscess Started on Zosyn HIV infection Cont HAART Diabetes melitus type 2 Fingerstick qac and hs Hypertension Monitor BP Hyperlipidemia Morbid obesity Full code status. History Interval history: Pain redness, abscess left thigh Hospitalist Physical - Physical exam Narrative exam: GEN: Not in acute distress, morbidly obese HEENT: Normocephalic, atraumatic, Neck: supple, No JVD Lungs: Clear to auscultation bilaterally, no wheeze Heart:S1 and S2 regular, no murmurs, rubs or gallop, Abd:soft, non tender, non distended, normal bowel sounds Ext: Erythema, tender, swollen left upper inner thigh, no clubbing or cyanosis Neuro:Awake,alert,oriented x 3, moves all ext, no focal neurological signs Psych:Normal mood - Constitutional Vitals: Temp Pulse Resp BP Pulse Ox 98.6 F 110 H 16 116/65 97 06/02/18 13:45 06/02/18 14:15 06/02/18 14:15 06/02/18 14:15 06/02/18 14:15 Results - Labs CBC & Chem 7: 06/02/18 03:50 06/02/18 03:50 Labs: Laboratory Last Values WBC 9.9 K/mm3 (4.5-11.0) 06/02/18 03:50 RBC 3.88 M/mm3 (3.65-5.03) 06/02/18 03:50 Hgb 12.6 gm/dl (10.1-14.3) 06/02/18 03:50 Hct 37.9 % (30.3-42.9) 06/02/18 03:50 MCV 98 fl (79-97) H 06/02/18 03:50 MCH 32 pg (28-32) 06/02/18 03:50 MCHC 33 % (30-34) 06/02/18 03:50 RDW 14.3 % (13.2-15.2) 06/02/18 03:50 Plt Count 127 K/mm3 (140-440) L 06/02/18 03:50 Lymph % (Auto) [place] 06/02/18 03:50 [place] % (Auto) [place] 06/02/18 03:50 Eos % (Auto) [place] 06/02/18 03:50 Baso % (Auto) [place] 06/02/18 03:50 Lymph # [place] 06/02/18 03:50 [place] # [place] 06/02/18 03:50 Eos # [place] 06/02/18 03:50 Baso # [place] 06/02/18 03:50 Seg Neutrophils % [place] 06/02/18 03:50 Seg Neutrophils # [place] 06/02/18 03:50 PT 12.4 Sec. (12.2-14.9) 06/01/18 14:33 INR 0.87 (0.87-1.13) 06/01/18 14:33 Sodium 129 mmol/L (137-145) L 06/02/18 03:50 Potassium 4.3 mmol/L (3.6-5.0) 06/02/18 03:50 Chloride 92.7 mmol/L (98-107) L 06/02/18 03:50 Carbon Dioxide 20 mmol/L (22-30) L 06/02/18 03:50 Anion Gap 21 mmol/L 06/02/18 03:50 BUN 17 mg/dL (7-17) 06/02/18 03:50 Creatinine 0.8 mg/dL (0.7-1.2) 06/02/18 03:50 Estimated GFR > 60 ml/min 06/02/18 03:50 BUN/Creatinine Ratio 21 % 06/02/18 03:50 Glucose 395 mg/dL (65-100) H 06/02/18 03:50 POC Glucose 227 (70-105) H 06/02/18 14:28 Lactic Acid 1.90 mmol/L (0.7-2.0) 06/01/18 22:54 Calcium 9.0 mg/dL (8.4-10.2) 06/02/18 03:50 Total Bilirubin 0.50 mg/dL (0.1-1.2) 06/01/18 14:33 AST 28 units/L (5-40) 06/01/18 14:33 ALT 48 units/L (7-56) 06/01/18 14:33 Alkaline Phosphatase 150 units/L (35-129) H 06/01/18 14:33 Total Protein 8.4 g/dL (6.3-8.2) H 06/01/18 14:33 Albumin 4.0 g/dL (3.9-5) 06/01/18 14:33 Albumin/Globulin Ratio 0.9 % 06/01/18 14:33 Urine Color Yellow (Yellow) 06/01/18 16:30 Urine Turbidity Clear (Clear) 06/01/18 16:30 Urine pH 6.0 (5.0-7.0) 06/01/18 16:30 Ur Specific [place] 1.030 (1.003-1.030) 06/01/18 16:30 Urine Protein 100 mg/dl mg/dL (Negative) 06/01/18 16:30 Urine Glucose (UA) >=500 mg/dL (Negative) 06/01/18 16:30 Urine Ketones Neg mg/dL (Negative) 06/01/18 16:30 Urine Blood Sm (Negative) 06/01/18 16:30 Urine Nitrite Pos (Negative) 06/01/18 16:30 Urine Bilirubin Neg (Negative) 06/01/18 16:30 Urine Urobilinogen < 2.0 mg/dL (<2.0) 06/01/18 16:30 Ur Leukocyte Esterase Neg (Negative) 06/01/18 16:30 Urine WBC (Auto) 10.0 /HPF (0.0-6.0) H 06/01/18 16:30 Urine RBC (Auto) 4.0 /HPF (0.0-6.0) 06/01/18 16:30 U Epithel Cells (Auto) 2.0 /HPF (0-13.0) 06/01/18 16:30 Urine Bacteria (Auto) 1+ /HPF (Negative) 06/01/18 16:30 Urine Mucus Few /HPF 06/01/18 16:30 Nutrition/Malnutrition Assess - Dietary Evaluation Nutrition/Malnutrition Findings: Nutrition Notes Start: 06/02/18 13:23 Freq: Status: Active Protocol: Document 06/02/18 13:23 RM (Rec: 06/02/18 13:23 RM [email or web address]) Nutrition Notes 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 Pt not in room at time of visit. Nutrition Intervention Follow-Up By: 06/03/18 Additional Comments Follow DM diet education
[2018-06-02] MEDS: MORPHINE IV PRN ×3 (15:36→22:55)
[2018-06-02] MEDS: celeXA PO SCH ×2 (15:39→19:39)
[2018-06-02] MEDS: ZIAGEN PO SCH ×2 (15:39→19:39)
[2018-06-02] MEDS: TIVICAY PO SCH ×2 (15:39→19:39)
[2018-06-02] MEDS: EPIVIR PO SCH ×2 (15:39→19:39)
[2018-06-02] MEDS: PROTONIX PO SCH ×2 (15:40→19:39)
[2018-06-02] MEDS: ELAVIL PO SCH ×2 (15:40→19:39)
--- NOTE | 2018-06-02 17:04 | Operative Report ---
PREOPERATIVE DIAGNOSIS: Cellulitis and abscess of left thigh. POSTOPERATIVE DIAGNOSIS: Cellulitis and abscess of left thigh. PROCEDURE: Incision and drainage of left thigh abscess, exploration of left upper thigh. FINDINGS: Indurated and inflamed skin and subcutaneous tissue. There was edema and inflammatory fluid below the subcutaneous tissue; however, no pus. ANESTHESIA: LMA, local. SURGEON: Elo Dalal DO ESTIMATED BLOOD LOSS: Minimal. PATHOLOGY: Wound cultures. SPECIMEN: Disposition to lab. CONDITION AND DISPOSITION: The patient is stable to PACU. HISTORY OF PRESENT ILLNESS AND INDICATION: The patient is a 38-year-old female with uncontrolled diabetes, presented to the Emergency Room with complaints of left thigh pain, possible abscess. This has been ongoing for 2 days, during which time the patient states she has not felt well. She complained of extreme pain in the left upper thigh. She does have a history of right thigh abscess for which she was treated in September 2017, which was consistent with necrotizing fasciitis. She underwent a debridement of the right upper thigh and groin area for this reason. CT scan performed in the Emergency Room did not show any discernible fluid collection in the left upper thigh; however, did show evidence of cellulitis. The patient was continued to spike fevers and remained very tender at the site. Therefore, it was decided to take her to the operating room for incision and drainage and exploration of the left thigh. All risks, benefits, and alternatives of surgery were discussed with the patient and consent obtained. PROCEDURE IN DETAIL: The patient was identified in the preoperative area, taken back to the operating room and placed on the operating table in supine position. After anesthesia was induced, the left leg was frog legged and the upper thigh and groin were prepped and draped in the usual sterile fashion. A timeout was performed. A 5-6 cm incision was made in the groin overlying the area of induration and cellulitis. This was done with a #10 blade. Dissection was carried down through the skin and subcutaneous tissue using Bovie electrocautery. The subcutaneous space was then bluntly entered using a gloved finger. There was a space between the subcutaneous tissue and the underlying fascia, which consisted of inflammatory fluid and edema. There was induration of the subcutaneous tissue and skin. There was no abscess identified. The subcutaneous tissue, skin, fascia and underlying muscle all appeared healthy without evidence of necrosis. Deep wound cultures were obtained. The wound was irrigated and checked for hemostasis. Once hemostasis was ensured, the wound was packed with saline moistened Kerlix x 1 piece and covered with ABD pads and secured with mesh underwear. At the end of the case, all sponge, instrument, sharp counts were correct x 2. The patient was awoken from anesthesia, extubated, and taken to PACU in stable condition. JOB# [id number] GUERDA/CONSTANTINO
[2018-06-02] MEDS ORDERED: REGLAN IV ONE (17:30)
--- NOTE | 2018-06-02 17:47 | Consultation ---
History of Present Illness - Reason for Consult Consult date: 06/02/18 thigh abscess/HIV Requesting physician: JENARO ARMENTA - History of Present Illness 38 y/o female with history of HIV infection on triumeq, sees Dr Pedro Ponce (last VL<20), morbid obesity, HTN, Nicotine Dependence, DM and previous skin boils; admitted on 06/01/2018 due to 3-day history of left upper inner thigh edema, erythema and tenderness which became worse with time. pain was 9 of 10, throbbing. Denies N/V/D. Reports chills and subjective fever. In the ED, temp 100.6-101.5. HR 119. R 20. BP 123/80. WBC 10.3. Hg 13.6. plat 156. Creat 0.8. Glu 561. Lactate 2.2. Blood cultures 06/01/2018 no growth so far. CT leg showed inflammatory stranding in the subcutaneous fat involving the proximal thigh medially consistent with cellulitis. There is no well-defined abscess. S/p OR I+D on 06/02/2018 findings - Indurated and inflamed skin and subcutaneous tissue. Edema below the subcutaneous tissue. Inflammatory fluid, no pus. Review of Systems: General: + fever, +chills, nightsweats, unintentional weight change, or change in appetite Cutaneous: no rash, pruritus Head: no headaches or injury Eyes: no changes in vision, eye pain, double vision Ears: no ear pain, ear discharge, ringing or hearing loss Nose: no nose bleeding, stuffiness Mouth & throat: no bleeding gums, no horseness, no dental problems, or swollen glands Neck: no pain, node enlargement/lumps, tyroid enlargement or tenderness Respiratory: no cough, wheezing, sputum, hemoptysis, pleuritic chest pain Cardiovascular: no chest pain, leg edema, cyanosis, LOPEZ, orthopnea Musculoskeletal: no decreased joint motion, bone or joint pain, joint swelling, muscle aches +left medial thigh edema, erythema Gastrointestinal: no nausea, vomiting, hematemesis, diarrhea, constipation, melena, bright red blood in stools, fecal incontinence, jaundice Genitourinary/Reproductive: no frequent urination, dysuria, hematuria, incontinence Neurogical: no seizures, no headaches, no weakness, no paresthesias, no loss of speech or vision; no memory loss, no vertigo, no tremors, no numbness Psychiatric: stable mood; no excessive anxiety, sadness or moodiness Past History Past Medical History: diabetes, HIV/AIDS, hypertension Past Surgical History: cholecystectomy, hysterectomy, Other (Insulinpump placement, ) Social history: single, smoking. denies: alcohol abuse Family history: diabetes, hypertension Medications and Allergies Allergies Allergy/AdvReac Type Severity Reaction Status Date / Time iodine Allergy Swelling Verified 06/01/18 12:47 sulfamethoxazole Allergy Rash Verified 06/01/18 12:47 [From Bactrim] trimethoprim [From Bactrim] Allergy Rash Verified 06/01/18 12:47 metformin AdvReac Nausea Verified 06/01/18 12:47 seafood Allergy Rash Uncoded 02/16/18 13:38 Home Medications Medication Instructions Recorded Confirmed Last Taken Type Atorvastatin [Lipitor] 40 mg PO HS 04/13/13 06/02/18 09/08/17 History Gabapentin [Gralise] 800 mg PO TID 04/13/13 06/02/18 09/08/17 History Abacavir/Dolutegravir/Lamivudi 1 each PO DAILY 07/10/15 06/02/18 09/08/17 History [Triumeq 600-50-300 mg Tablet] Ibuprofen [Motrin 800 MG tab] 800 mg PO Q8HR PRN #20 tablet 05/21/17 06/02/18 Unknown Rx ARIPiprazole [Abilify TAB] 15 mg PO QDAY 06/02/18 06/02/18 Unknown History Lispro Insulin [Humalog] 80 units SQ QMONTH 06/02/18 06/02/18 Unknown History [place] Carbonate [Eskalith] 300 mg PO BID 06/02/18 06/02/18 Unknown History Mirtazapine 45 mg PO QHS 06/02/18 06/02/18 Unknown History buPROPion XL [Wellbutrin XL] 150 mg PO QDAY 06/02/18 06/02/18 Unknown History Active Meds: Active Medications Abacavir Sulfate (Ziagen) 600 mg PO QDAY [facility] Acetaminophen (Tylenol) 650 mg PO Q4H PRN PRN Reason: Pain MILD(1-3)/Fever >100.5/CHAVARRIA Last Admin: 06/02/18 01:16 Dose: 650 mg Documented by: Albuterol (Proventil) 2.5 mg IH Q4HRT PRN PRN Reason: Shortness Of Breath Alprazolam (Xanax) 0.25 mg PO HS [facility] Last Admin: 06/01/18 23:28 Dose: 0.25 mg Documented by: Amitriptyline HCl (Elavil) 50 mg PO DAILY [facility] Atorvastatin Calcium (Lipitor) 40 mg PO HS [facility] Last Admin: 06/01/18 23:29 Dose: 40 mg Documented by: Citalopram Hydrobromide (Celexa) 20 mg PO QDAY [facility] Docusate Sodium (Colace) 100 mg PO BID PRN PRN Reason: Pain Last Admin: 06/01/18 23:29 Dose: 100 mg Documented by: Gabapentin (Neurontin) 800 mg PO TID [facility] Last Admin: 06/02/18 15:42 Dose: Not Given Documented by: Hydromorphone HCl (Dilaudid) 0.5 mg IV Q10MIN PRN PRN Reason: Pain , Severe (7-10) Stop: 06/02/18 23:06 Last Admin: 06/02/18 13:54 Dose: 0.5 mg Documented by: Piperacillin Sod/Tazobactam Sod (Zosyn/Ns 4.5gm/100ml) 4.5 gm in 100 mls @ 200 mls/hr IV Q8HR [facility]; Protocol Last Admin: 06/02/18 15:43 Dose: 200 mls/hr Documented by: Clindamycin HCl (Cleocin 600 Mg/50 Ml) 600 mg in 50 mls @ 100 mls/hr IV Q8HR [facility]; Protocol Last Admin: 06/02/18 16:56 Dose: 100 mls/hr Documented by: Sodium Chloride (Nacl 0.9% 1000 Ml) 1,000 mls @ 150 mls/hr IV DIRECT [facility] Last Admin: 06/01/18 23:18 Dose: 150 mls/hr Documented by: Ibuprofen (Motrin) 800 mg PO Q8HR PRN PRN Reason: Pain , Severe (7-10) Last Admin: 06/01/18 23:29 Dose: 800 mg Documented by: Insulin Glargine (Lantus) 40 units SUB-Q QHS [facility] Last Admin: 06/01/18 23:38 Dose: 40 units Documented by: Insulin Human Regular (Humulin R) 10 units SUB-Q ACHS [facility] Last Admin: 06/02/18 10:48 Dose: 10 units Documented by: Insulin Human Regular (Humulin R) 5 units IV ONCE PRN PRN Reason: Hyperglycemia Last Admin: 06/02/18 13:54 Dose: 5 units Documented by: Lamivudine (Epivir) 300 mg PO QDAY [facility] Midazolam HCl (Versed) 2 mg IV PREOP NR Stop: 06/02/18 23:59 Last Admin: 06/02/18 12:19 Dose: 2 mg Documented by: Morphine Sulfate (Morphine) 2 mg IV Q3H PRN PRN Reason: Pain, Moderate (4-6) Last Admin: 06/02/18 15:36 Dose: 2 mg Documented by: Nitrofurantoin Macrocrystals (Macrobid) 100 mg PO BID [facility] Last Admin: 06/02/18 13:32 Dose: Not Given Documented by: Ondansetron HCl (Zofran Odt) 4 mg PO Q8HR PRN PRN Reason: Nausea Ondansetron HCl (Zofran) 4 mg IV Q6H PRN PRN Reason: Nausea And Vomiting Oxycodone/Acetaminophen (Percocet 5/325) 1 tab PO Q6H PRN PRN Reason: Pain, Moderate (4-6) Last Admin: 06/01/18 23:30 Dose: 1 tab Documented by: Pantoprazole Sodium (Protonix) 20 mg PO QDAY [facility] Sodium Chloride (Sodium Chloride Flush Syringe 10 Ml) 10 ml IV BID [facility] Last Admin: 06/02/18 09:09 Dose: 10 ml Documented by: Sodium Chloride (Sodium Chloride Flush Syringe 10 Ml) 10 ml IV PRN PRN PRN Reason: LINE FLUSH Zolpidem Tartrate (Ambien) 10 mg PO QHS [facility] Last Admin: 06/01/18 23:29 Dose: 10 mg Documented by: Physical Examination - Physical Exam Narrative exam: General appearance: Alert in NAD, conversant, obese Eyes: anicteric sclerae, moist conjunctivae; no lid-lag; PERRLA HENT: Atraumatic; oropharynx clear with moist mucous membranes and no mucosal ulcerations/no oral thrush; normal hard and soft palate. Normal external ears. Neck: Trachea midline; supple, no thyromegaly or lymphadenopathy Lungs: CTA, with normal respiratory effort and no intercostal retractions CV: RRR, no murmurs Abdomen: Soft, non-tender; no masses or hepatosplenomegaly Extremities: gen large obese thigh with left medial upper thigh indurated edema, tenderness unable to examine due to pain Skin: Normal temperature, turgor and texture; no rash, ulcers or subcutaneous nodules Psych: Appropriate affect, alert and oriented to person, place and time. Neuro: alert and oriented x 3. Moving all extermities - Constitutional Vitals: Vital Signs Temp Pulse Resp BP Pulse Ox 98.9 F 106 H 22 115/76 97 06/02/18 16:48 06/02/18 16:48 06/02/18 16:48 06/02/18 16:48 06/02/18 16:48 Temperature -Last 24 Hours Temperature 98.9 F Temperature 99.9 F Temperature 98.6 F Temperature 98.6 F Temperature 101.5 F Temperature 101.5 F Temperature 98.1 F Temperature 100.8 F Temperature 99.9 F Temperature 99.5 F Temperature 98.4 F Results - Labs CBC & Chem 7: 06/02/18 03:50 06/02/18 03:50 Labs: Abnormal lab results 06/01/18 06/01/18 06/01/18 Range/Units 19:24 19:53 21:09 MCV (79-97) fl Plt Count (140-440) K/mm3 Sodium (137-145) mmol/L Chloride (98-107) mmol/L Carbon Dioxide (22-30) mmol/L Glucose (65-100) mg/dL POC Glucose 425 H 359 H (70-105) Lactic Acid 2.20 H* (0.7-2.0) mmol/L 06/02/18 06/02/18 06/02/18 Range/Units 03:50 03:50 07:36 MCV 98 H (79-97) fl Plt Count 127 L (140-440) K/mm3 Sodium 129 L (137-145) mmol/L Chloride 92.7 L (98-107) mmol/L Carbon Dioxide 20 L (22-30) mmol/L Glucose 395 H (65-100) mg/dL POC Glucose 253 H (70-105) Lactic Acid (0.7-2.0) mmol/L 06/02/18 06/02/18 06/02/18 Range/Units 10:37 11:41 13:21 MCV (79-97) fl Plt Count (140-440) K/mm3 Sodium (137-145) mmol/L Chloride (98-107) mmol/L Carbon Dioxide (22-30) mmol/L Glucose (65-100) mg/dL POC Glucose 322 H 313 H 277 H (70-105) Lactic Acid (0.7-2.0) mmol/L 06/02/18 06/02/18 Range/Units 14:28 16:26 MCV (79-97) fl Plt Count (140-440) K/mm3 Sodium (137-145) mmol/L Chloride (98-107) mmol/L Carbon Dioxide (22-30) mmol/L Glucose (65-100) mg/dL POC Glucose 227 H 273 H (70-105) Lactic Acid (0.7-2.0) mmol/L Assessment and Plan Cultures: Blood cultures 06/01/2018 no growth so far. Assessment: 38 y/o female with history of HIV infection on Triumeq, sees Dr Pedro Ponce (last VL<20), morbid obesity, HTN, Nicotine Dependence, DM and previous skin boils; admitted on 06/01/2018 due to 3-day history of left upper inner thigh edema, erythema and tenderness: 1) Sepsis: Present on admission, manifested by fever, tachycardia, increased lactate. Etiology most likely left upper tight abscess. 2) Left upper tight abscess: likely Staph or Strep, less likely GNRs/anaerobes. CT leg showed inflammatory stranding in the subcutaneous fat involving the proximal thigh medially consistent with cellulitis. There is no well-defined abscess. - S/p OR I+D on 06/02/2018 findings - Indurated and inflamed skin and subcutaneous tissue. Edema below the subcutaneous tissue. Inflammatory fluid, no pus. 3) HIV infection: on Triumeq, deven Ponce (last VL<20) 4) DM- uncontrolled Recommendations: - follow-up blood cultures, wound culture - stop clindamycin, zosyn - start cefepime and flagyl to cover GNRs and anaerobes - start vancomycin to cover MRSA - CRP - check MRSA screening - Continue in house alternative to Triumeq - abacavir+lamividine+dolutegravir or raltegravir - strict diabetic control Will follow. Roxane Phelan MD Infectious Diseases [employer] Intern [facility] ([facility] M [phone] O [phone]
[2018-06-02] MEDS ORDERED: VANCOMYCIN 2,000 MG in NACL 0.9% 500 ML 500 ML IV ONE (19:30)
[2018-06-02] MEDS: NACL 0.9% 1000 ML 1,000 ML IV SCH (19:36)
[2018-06-02] MEDS ORDERED: .VANCOMYCIN VIAL 1,000 MG in NACL 0.9% 100 ML IV SCH (20:00)
[2018-06-02] MEDS: XANAX PO SCH (22:00)
[2018-06-02] MEDS: MAXIPIME/NS 2 GM/100 ML 2 GM/100 ML BAG IV SCH (22:54)
[2018-06-02] MEDS: LANTUS SUB-Q SCH (22:56)
[2018-06-03] MEDS: FLAGYL 500 MG/100 ML 500 MG/100 ML BAG IV SCH ×4 (00:02→22:58)
[2018-06-03] MEDS: AMBIEN PO SCH ×2 (01:53→21:49)
[2018-06-03] MEDS: MAXIPIME/NS 2 GM/100 ML 2 GM/100 ML BAG IV SCH ×2 (05:48→13:40)
[2018-06-03] MEDS: MORPHINE IV PRN ×4 (05:48→18:09)
[2018-06-03] MEDS: ZOFRAN IV PRN ×2 (05:53→10:55)
[2018-06-03 08:10] LABS: BUN/Creatinine Ratio 25; Blood Urea Nitrogen 15 mg/dL (7-17); Calcium 8.6 mg/dL (8.4-10.2); Hemoglobin TNR gm/dl (10.1-14.3); Hemolysis Index 3; Red Blood Count TNR M/mm3 (3.65-5.03)
[2018-06-03 08:11] LABS: Hematocrit TNR % (30.3-42.9); Mean Corpuscular HGB Conc TNR % (30-34); Mean Corpuscular Volume TNR fl (79-97); Mean Platelet Volume TNR fl (6-12); Platelet Count TNR K/mm3 (140-440); Red Cell Distribution Width TNR % (13.2-15.2)
[2018-06-03] MEDS: NEURONTIN PO SCH ×3 (09:00→21:49)
[2018-06-03 09:03] LABS: Hematocrit 29.6 % (30.3-42.9); Hemoglobin 10.1 gm/dl (10.1-14.3); Mean Corpuscular HGB Conc 34 % (30-34); Mean Corpuscular Volume 96 fl (79-97); Platelet Count 106 K/mm3 (140-440); Red Blood Count 3.08 M/mm3 (3.65-5.03); Red Cell Distribution Width 14.3 % (13.2-15.2)
[2018-06-03] MEDS: celeXA PO SCH (10:00)
--- NOTE | 2018-06-03 10:05 | Progress Note ---
Assessment and Plan Cultures: Blood cultures 06/01/2018 no growth so far. Assessment: 38 y/o female with history of HIV infection on Triumeq, sees Dr Pedro Ponce (last VL<20), morbid obesity, HTN, Nicotine Dependence, DM and previous skin boils; admitted on 06/01/2018 due to 3-day history of left upper inner thigh edema, erythema and tenderness: 1) Sepsis: Present on admission, manifested by fever, tachycardia, increased lactate. Etiology most likely left upper tight abscess. 2) Left upper tight abscess: likely Staph or Strep, less likely GNRs/anaerobes. CT leg showed inflammatory stranding in the subcutaneous fat involving the proximal thigh medially consistent with cellulitis. There is no well-defined abscess. - S/p OR I+D on 06/02/2018 findings - Indurated and inflamed skin and subc utaneous tissue. Edema below the subcutaneous tissue. Inflammatory fluid, no pus - CRP 27.90. 3) HIV infection: on Triumeq, sees Dr Pedro Ponce (last VL<20) 4) DM- uncontrolled Recommendations: - follow-up blood cultures, wound culture - continue cefepime and flagyl to cover GNRs and anaerobes, D2 - continue vancomycin to cover MRSA, D2 - check MRSA screening - Continue in house alternative to Triumeq - abacavir+lamividine+dolutegravir or raltegravir - strict diabetic control [facility] M: [phone] O:[phone] Subjective Date of service: 06/03/18 Interval history: Patient seen and examined, sitting up on the side of the bed. Continuing to have left thigh discomfort, however admits improvement. Low grade fevers. Objective - Exam Narrative Exam: General appearance: Alert in NAD, conversant, obese Eyes: anicteric sclerae, moist conjunctivae; no lid-lag; PERRLA HENT: Atraumatic; oropharynx clear with moist mucous membranes and no mucosal ulcerations/no oral thrush; normal hard and soft palate. Normal external ears. Neck: Trachea midline; supple, no thyromegaly or lymphadenopathy Lungs: CTA, with normal respiratory effort and no intercostal retractions CV: RRR, no murmurs Abdomen: Soft, non-tender; no masses or hepatosplenomegaly Extremities: gen large obese thigh with left medial upper thigh indurated edema, tenderness improved Skin: Normal temperature, turgor and texture; no rash, ulcers or subcutaneous nodules Psych: Appropriate affect, alert and oriented to person, place and time. Neuro: alert and oriented x 3. Moving all extermities - Constitutional Vitals: Vital Signs Temp Pulse Resp BP Pulse Ox 99.6 F 110 H 18 128/70 94 06/03/18 06:00 06/03/18 06:00 06/03/18 06:00 06/03/18 06:00 06/03/18 06:00 Temperature -Last 24 Hours Temperature 99.6 F Temperature 100.7 F Temperature 100.7 F Temperature 98.9 F Temperature 99.9 F Temperature 98.6 F Temperature 98.6 F Temperature 101.5 F Temperature 101.5 F - Labs CBC & Chem 7: 06/03/18 08:44 06/03/18 07:01 Labs: Abnormal lab results 06/02/18 06/02/18 06/02/18 Range/Units 10:37 11:41 13:21 RBC (3.65-5.03) M/mm3 Hct (30.3-42.9) % MCH (28-32) pg Plt Count (140-440) K/mm3 Sodium (137-145) mmol/L Potassium (3.6-5.0) mmol/L Carbon Dioxide (22-30) mmol/L Creatinine (0.7-1.2) mg/dL Glucose (65-100) mg/dL POC Glucose 322 H 313 H 277 H (70-105) Hemoglobin A1c (4-6) % C-Reactive Protein (0.00-1.30) mg/dL 06/02/18 06/02/18 06/02/18 Range/Units 14:28 16:26 21:42 RBC (3.65-5.03) M/mm3 Hct (30.3-42.9) % MCH (28-32) pg Plt Count (140-440) K/mm3 Sodium (137-145) mmol/L Potassium (3.6-5.0) mmol/L Carbon Dioxide (22-30) mmol/L Creatinine (0.7-1.2) mg/dL Glucose (65-100) mg/dL POC Glucose 227 H 273 H 267 H (70-105) Hemoglobin A1c (4-6) % C-Reactive Protein (0.00-1.30) mg/dL 06/02/18 06/02/18 06/03/18 Range/Units 21:53 21:53 07:01 RBC (3.65-5.03) M/mm3 Hct (30.3-42.9) % MCH (28-32) pg Plt Count (140-440) K/mm3 Sodium 136 L D (137-145) mmol/L Potassium 3.5 L (3.6-5.0) mmol/L Carbon Dioxide 21 L (22-30) mmol/L Creatinine 0.6 L (0.7-1.2) mg/dL Glucose 209 H (65-100) mg/dL POC Glucose (70-105) Hemoglobin A1c 11.2 H (4-6) % C-Reactive Protein 27.90 H (0.00-1.30) mg/dL 06/03/18 06/03/18 Range/Units 07:41 08:44 RBC 3.08 L (3.65-5.03) M/mm3 Hct 29.6 L D (30.3-42.9) % MCH 33 H (28-32) pg Plt Count 106 L (140-440) K/mm3 Sodium (137-145) mmol/L Potassium (3.6-5.0) mmol/L Carbon Dioxide (22-30) mmol/L Creatinine (0.7-1.2) mg/dL Glucose (65-100) mg/dL POC Glucose 199 H (70-105) Hemoglobin A1c (4-6) % C-Reactive Protein (0.00-1.30) mg/dL
[2018-06-03] MEDS: VANCOMYCIN 1,750 MG in NACL 0.9% 500 ML 500 ML IV SCH (10:29)
--- NOTE | 2018-06-03 10:30 | Progress Note ---
Assessment and Plan Assessment and plan: Sepsis due to left thigh abscess. Blood cultures drawn Continue Cefepime, Flagyl, vanco Left thigh abscess s/p I and D discussed with Dr. Dalal HIV infection Cont HAART Diabetes melitus type 2 Fingerstick qa and Hypertension Monitor BP Hyperlipidemia Morbid obesity Full code status. History Interval history: Pain redness, abscess left thigh s/p I and D yesterday Hospitalist Physical - Physical exam Narrative exam: GEN: Mild distress from pain, morbidly obese HEENT: Normocephalic, atraumatic, Neck: supple, No JVD Lungs: Clear to auscultation bilaterally, no wheeze Heart:S1 and S2 regular, no murmurs, rubs or gallop, Abd:soft, non tender, non distended, normal bowel sounds Ext: Erythema, tender, swollen left upper inner thigh, no clubbing or cyanosis Neuro:Awake,alert,oriented x 3, moves all ext, no focal neurological signs Psych:Normal mood - Constitutional Vitals: Temp Pulse Resp BP Pulse Ox 99.6 F 110 H 18 128/70 94 06/03/18 06:00 06/03/18 06:00 06/03/18 06:00 06/03/18 06:00 06/03/18 06:00 General appearance: Present: mild distress Results - Labs CBC & Chem 7: 06/03/18 08:44 06/03/18 07:01 Labs: Laboratory Last Values WBC 6.9 K/mm3 (4.5-11.0) 06/03/18 08:44 RBC 3.08 M/mm3 (3.65-5.03) L 06/03/18 08:44 Hgb 10.1 gm/dl (10.1-14.3) 06/03/18 08:44 Hct 29.6 % (30.3-42.9) L D 06/03/18 08:44 MCV 96 fl (79-97) 06/03/18 08:44 MCH 33 pg (28-32) H 06/03/18 08:44 MCHC 34 % (30-34) 06/03/18 08:44 RDW 14.3 % (13.2-15.2) 06/03/18 08:44 Plt Count 106 K/mm3 (140-440) L 06/03/18 08:44 Lymph % (Auto) [employer] 06/02/18 03:50 [place] % (Auto) [employer] 06/02/18 03:50 Eos % (Auto) [employer] 06/02/18 03:50 Baso % (Auto) [employer] 06/02/18 03:50 Lymph # [employer] 06/02/18 03:50 Swisher # [employer] 06/02/18 03:50 Eos # [employer] 06/02/18 03:50 Baso # [employer] 06/02/18 03:50 Seg Neutrophils % [employer] 06/02/18 03:50 Seg Neutrophils # [employer] 06/02/18 03:50 PT 12.4 Sec. (12.2-14.9) 06/01/18 14:33 INR 0.87 (0.87-1.13) 06/01/18 14:33 Sodium 136 mmol/L (137-145) L D 06/03/18 07:01 Potassium 3.5 mmol/L (3.6-5.0) L 06/03/18 07:01 Chloride 101.1 mmol/L (98-107) 06/03/18 07:01 Carbon Dioxide 21 mmol/L (22-30) L 06/03/18 07:01 Anion Gap 17 mmol/L 06/03/18 07:01 BUN 15 mg/dL (7-17) 06/03/18 07:01 Creatinine 0.6 mg/dL (0.7-1.2) L 06/03/18 07:01 Estimated GFR > 60 ml/min 06/03/18 07:01 BUN/Creatinine Ratio 25 % 06/03/18 07:01 Glucose 209 mg/dL (65-100) H 06/03/18 07:01 POC Glucose 199 (70-105) H 06/03/18 07:41 Hemoglobin A1c 11.2 % (4-6) H 06/02/18 21:53 Lactic Acid 1.90 mmol/L (0.7-2.0) 06/01/18 22:54 Calcium 8.6 mg/dL (8.4-10.2) 06/03/18 07:01 Total Bilirubin 0.50 mg/dL (0.1-1.2) 06/01/18 14:33 AST 28 units/L (5-40) 06/01/18 14:33 ALT 48 units/L (7-56) 06/01/18 14:33 Alkaline Phosphatase 150 units/L (35-129) H 06/01/18 14:33 C-Reactive Protein 27.90 mg/dL (0.00-1.30) H 06/02/18 21:53 Total Protein 8.4 g/dL (6.3-8.2) H 06/01/18 14:33 Albumin 4.0 g/dL (3.9-5) 06/01/18 14:33 Albumin/Globulin Ratio 0.9 % 06/01/18 14:33 Urine Color Yellow (Yellow) 06/01/18 16:30 Urine Turbidity Clear (Clear) 06/01/18 16:30 Urine pH 6.0 (5.0-7.0) 06/01/18 16:30 Ur Specific [place] 1.030 (1.003-1.030) 06/01/18 16:30 Urine Protein 100 mg/dl mg/dL (Negative) 06/01/18 16:30 Urine Glucose (UA) >=500 mg/dL (Negative) 06/01/18 16:30 Urine Ketones Neg mg/dL (Negative) 06/01/18 16:30 Urine Blood Sm (Negative) 06/01/18 16:30 Urine Nitrite Pos (Negative) 06/01/18 16:30 Urine Bilirubin Neg (Negative) 06/01/18 16:30 Urine Urobilinogen < 2.0 mg/dL (<2.0) 06/01/18 16:30 Ur Leukocyte Esterase Neg (Negative) 06/01/18 16:30 Urine WBC (Auto) 10.0 /HPF (0.0-6.0) H 06/01/18 16:30 Urine RBC (Auto) 4.0 /HPF (0.0-6.0) 06/01/18 16:30 U Epithel Cells (Auto) 2.0 /HPF (0-13.0) 06/01/18 16:30 Urine Bacteria (Auto) 1+ /HPF (Negative) 06/01/18 16:30 Urine Mucus Few /HPF 06/01/18 16:30 Nutrition/Malnutrition Assess - Dietary Evaluation Nutrition/Malnutrition Findings: Nutrition Notes Start: 06/02/18 13:23 Freq: Status: Active Protocol: Document 06/02/18 13:23 RM (Rec: 06/02/18 13:23 RM [id number]) Nutrition Notes Need for Assessment generated from: director of sustainable design Initial or Follow up Brief Note Subjective/Other Information Screened for new onset DM diet education. Pt not in room at time of visit. Nutrition Intervention Follow-Up By: 06/03/18 Additional Comments Follow DM diet education
[2018-06-03] MEDS: ZIAGEN PO SCH (10:40)
[2018-06-03] MEDS: EPIVIR PO SCH (10:40)
[2018-06-03] MEDS: ELAVIL PO SCH (10:40)
[2018-06-03] MEDS: SODIUM CHLORIDE FLUSH SYRINGE 10 ML IV SCH (10:40)
[2018-06-03] MEDS: PROTONIX PO SCH (10:40)
[2018-06-03] MEDS: TIVICAY PO SCH (10:40)
[2018-06-03] MEDS: K-DUR PO SCH ×2 (13:37→18:25)
--- NOTE | 2018-06-03 13:42 | Progress Note ---
Assessment and Plan 38 yo F with 1. abscess/cellulitis of left thigh s/p incision and drainage and exploration of left thigh abscess POD 1 2. sepsis 3. poorly controlled DM Plan; 1. diabetic diet 2. IVF hydration 3. prn pain control - morphine and percocet. Will add toradol 4. add reglan for n/v 5. follow up would cultures 6. daily wound care - orders placed 7. strict glucose control 8. replace lytes 9. IV abx, ID on board Pt will follow up in wound care clinic upon discharge Thank you, please call with questions Subjective Date of service: 06/03/18 Narrative: Pt seen and examined. c/o nausea and vomiting. She had a Tmax of 100.7. She c/o pain at left upper thigh surgical site. Pt states she removed wound packing because it got soiled Objective Vital Signs - 12hr 06/03/18 06/03/18 06/03/18 06:00 11:00 11:06 Temperature 99.6 F 99.1 F Pulse Rate 110 H 108 H 69 Respiratory 18 20 Rate Blood Pressure 128/70 154/86 O2 Sat by Pulse 94 99 98 Oximetry 06/03/18 11:22 Temperature Pulse Rate Respiratory Rate Blood Pressure O2 Sat by Pulse 99 Oximetry - General physical appearance Narrative Exam: Gen; AAOx3. NAD CV: s1, S2+ resp: even and unlabored Ext; no c/c/e. L thigh wound clean with serosang drainage. Minimal surrounding erythema. There is a moderate amount of induration. No fluctuance. Wound bed is clean without evidence of necrosis. Wound pack with one piece of mesalt. Covered with ABD pad. - Labs 06/03/18 08:44 06/03/18 07:01 Diabetes panel 06/02/18 06/03/18 Range/Units 21:53 07:01 Sodium 136 L D (137-145) mmol/L Potassium 3.5 L (3.6-5.0) mmol/L Chloride 101.1 (98-107) mmol/L Carbon Dioxide 21 L (22-30) mmol/L BUN 15 (7-17) mg/dL Creatinine 0.6 L (0.7-1.2) mg/dL Glucose 209 H (65-100) mg/dL Hemoglobin A1c 11.2 H (4-6) % Calcium 8.6 (8.4-10.2) mg/dL Calcium panel 06/03/18 Range/Units 07:01 Calcium 8.6 (8.4-10.2) mg/dL Pituitary panel 06/03/18 Range/Units 07:01 Sodium 136 L D (137-145) mmol/L Potassium 3.5 L (3.6-5.0) mmol/L Chloride 101.1 (98-107) mmol/L Carbon Dioxide 21 L (22-30) mmol/L BUN 15 (7-17) mg/dL Creatinine 0.6 L (0.7-1.2) mg/dL Glucose 209 H (65-100) mg/dL Calcium 8.6 (8.4-10.2) mg/dL Adrenal panel 06/03/18 Range/Units 07:01 Sodium 136 L D (137-145) mmol/L Potassium 3.5 L (3.6-5.0) mmol/L Chloride 101.1 (98-107) mmol/L Carbon Dioxide 21 L (22-30) mmol/L BUN 15 (7-17) mg/dL Creatinine 0.6 L (0.7-1.2) mg/dL Glucose 209 H (65-100) mg/dL Calcium 8.6 (8.4-10.2) mg/dL
[2018-06-03] MEDS: HumaLOG SUB-Q SCH ×2 (13:43→18:10)
[2018-06-03] MEDS: REGLAN IV PRN (14:09)
[2018-06-03] MEDS: TORADOL IV SCH ×2 (15:21→23:58)
[2018-06-03] MEDS: PERCOCET 5/325 PO PRN (18:24)
[2018-06-03] MEDS: XANAX PO SCH (21:48)
[2018-06-03] MEDS: LANTUS SUB-Q SCH (23:18)
[2018-06-04] MEDS: MORPHINE IV PRN ×5 (00:41→21:53)
[2018-06-04] MEDS: MAXIPIME/NS 2 GM/100 ML 2 GM/100 ML BAG IV SCH ×3 (00:42→21:47)
[2018-06-04] MEDS: VANCOMYCIN 1,750 MG in NACL 0.9% 500 ML 500 ML IV SCH ×3 (02:02→23:32)
[2018-06-04] MEDS: SODIUM CHLORIDE FLUSH SYRINGE 10 ML IV SCH ×3 (02:02→22:00)
[2018-06-04] MEDS: ZOFRAN IV PRN ×2 (06:53→19:39)
[2018-06-04] MEDS: TORADOL IV SCH ×3 (06:53→22:00)
[2018-06-04] MEDS: FLAGYL 500 MG/100 ML 500 MG/100 ML BAG IV SCH ×3 (07:20→21:46)
[2018-06-04] MEDS: NEURONTIN PO SCH ×3 (09:03→20:00)
[2018-06-04] MEDS: HumaLOG SUB-Q SCH ×3 (09:05→18:46)
--- NOTE | 2018-06-04 09:23 | Progress Note ---
Assessment and Plan Cultures: 06/01/18 Blood: no growth to date 06/02/18 :Left thigh Beta hemolytic Strep group B, Staph Aureus Assessment: 38 y/o female with history of HIV infection on Triumeq, sees Dr Pedro Ponce (last VL<20), morbid obesity, HTN, Nicotine Dependence, DM and previous skin boils; admitted on 06/01/2018 due to 3-day history of left upper inner thigh edema, erythema and tenderness: 1) Sepsis: Resolved. no fever > 24 hours. Etiology most likely left upper tight abscess. 2) Left upper thigh abscess: likely Staph or Strep, less likely GNRs/anaerobes. CT leg showed inflammatory stranding in the subcutaneous fat involving the proximal thigh medially consistent with cellulitis. There is no well-defined abscess. - S/p OR I+D on 06/02/2018 findings - Indurated and inflamed skin and subcutaneous tissue. Edema below the subcutaneous tissue. Inflammatory fluid, no pus - CRP 27.90. 3) HIV infection: on Triumeq, sees Dr Pdero Ponce (last VL<20) 4) DM- uncontrolled Recommendations Monitor inpatient in light of uncontrolled pain, may need to rescan - f/u ID and sensitivity - discontinue cefepime -continue flagyl to cover anaerobes, D3 - continue vancomycin to cover MRSA, D3 - f/u MRSA screening - Continue in house alternative to Triumeq - abacavir+lamividine+dolutegravir or raltegravir - strict diabetic control Dr. Vogel will be career and transition teacher this weekend, , please call for questions. Yina Campbell NP [facility] M: [phone] O:[phone] Subjective Date of service: 06/04/18 Interval history: Patient seen and examined. Continuing to have left thigh discomfort, however admits improvement. no fevers. Objective - Exam Narrative Exam: General appearance: Alert in NAD, conversant, obese Eyes: anicteric sclerae, moist conjunctivae; no lid-lag; PERRLA HENT: Atraumatic; oropharynx clear with moist mucous membranes and no mucosal ulcerations/no oral thrush; normal hard and soft palate. Normal external ears. Neck: Trachea midline; supple, no thyromegaly or lymphadenopathy Lungs: CTA, with normal respiratory effort and no intercostal retractions CV: RRR, no murmurs Abdomen: Soft, non-tender; no masses or hepatosplenomegaly Extremities: gen large obese thigh with left medial upper thigh indurated edema, tenderness improved Skin: Normal temperature, turgor and texture; no rash, ulcers or subcutaneous nodules Psych: Appropriate affect, alert and oriented to person, place and time. Neuro: alert and oriented x 3. Moving all extermities - Constitutional Vitals: Vital Signs Temp Pulse Resp BP Pulse Ox 98.3 F 96 H 20 155/89 97 06/04/18 05:31 06/04/18 05:31 06/04/18 06:54 06/04/18 05:31 06/04/18 05:31 Temperature -Last 24 Hours Temperature 98.3 F Temperature 98.8 F Temperature 97.9 F Temperature 99.1 F - Labs CBC & Chem 7: 06/03/18 08:44 06/03/18 07:01 Labs: Abnormal lab results 06/03/18 06/03/18 06/03/18 Range/Units 08:44 11:06 16:18 Hct 29.6 L D (30.3-42.9) % POC Glucose 238 H 169 H (70-105) 06/03/18 06/04/18 Range/Units 22:00 07:35 Hct (30.3-42.9) % POC Glucose 202 H 283 H (70-105)
[2018-06-04] MEDS: celeXA PO SCH (10:54)
[2018-06-04] MEDS: ELAVIL PO SCH (10:57)
[2018-06-04] MEDS: EPIVIR PO SCH (10:58)
[2018-06-04] MEDS: PROTONIX PO SCH (10:58)
[2018-06-04] MEDS: ZIAGEN PO SCH (11:00)
[2018-06-04] MEDS: TIVICAY PO SCH (11:00)
[2018-06-04] MEDS: PERCOCET 5/325 PO PRN ×2 (13:31→23:30)
--- NOTE | 2018-06-04 13:58 | Progress Note ---
Assessment and Plan 38 yo F with 1. abscess/cellulitis of left thigh s/p incision and drainage and exploration of left thigh abscess POD 2 2. sepsis 3. poorly controlled DM Plan; 1. diabetic diet 2. IVF hydration 3. prn pain control - morphine and percocet. Will add toradol. Pt had pain control issues as an outpatient when she was being managed for right thigh wound. 4. prn antiemetics 5. follow up would cultures - prelim is beta hemolytic group b strept and staph aureus - final pending 6. daily wound care - pt instructed to shower daily with hibacleanse and to irrigate wound while in shower. Does not need to pack wound 7. strict glucose control 8. abx per ID Wound is clean without signs of necrosis. Pt may be discharged from surgery standpoint when final antibiotic recommendations made. She will follow up in surgery office on Thursday06/09/18 at 1245pm Subjective Date of service: 06/04/18 Narrative: Pt seen and examined. No acute complaints or overnight events. Tolerating a diet. No f/c x 24 hours. She removed packing from wound to take a shower. Objective Vital Signs - 12hr 06/04/18 06/04/18 06/04/18 05:31 06:53 06:54 Temperature 98.3 F Pulse Rate 96 H Respiratory 18 20 20 Rate Blood Pressure 155/89 O2 Sat by Pulse 97 Oximetry 06/04/18 11:09 Temperature 98.1 F Pulse Rate 96 H Respiratory 20 Rate Blood Pressure 156/77 O2 Sat by Pulse 97 Oximetry - General physical appearance Narrative Exam: Gen; AAOx3. NAD CV: s1, s2+ Resp; even and unlabored Abd: soft Ext: no c/c/e. L thigh wound clean with serosang drainage. Wound probed and no purulent drainage. no odor. Wound base is clean. Induration and cellulitis improving. - Labs 06/03/18 08:44 06/03/18 07:01
--- NOTE | 2018-06-04 14:51 | Event Note ---
Date: 06/04/18 Physician Attestation: I have seen and examined patient. I personally discussed and directed assessment and management with HOURLY SHIFT MANAGER Adrian. Patient clinically stable no fever. On exam noted severe tenderness on upper left thigh / groin with tense induration extending to labia. Continue vancomycin and flagyl for now.. Will add cefepime for now. May need to be re-scan in 1-2 days if not better. Discussed with Dr Katlin Phelan MD Infectious Diseases Tapering Machine Operator [facility] M [phone] O [phone]
--- NOTE | 2018-06-04 16:44 | Progress Note ---
Assessment and Plan Assessment and plan: Sepsis due to left thigh abscess. Blood cultures drawn Continue Cefepime, Flagyl, vanco Left thigh abscess s/p I and D on 06/02/[address] Dalal HIV infection Cont HAART Diabetes melitus type 2 Fingerstick qac and Hypertension Monitor BP Hyperlipidemia Morbid obesity Full code status. History Interval history: Pain redness, abscess left thigh s/p I and D on 06/02 Hospitalist Physical - Physical exam Narrative exam: GEN: Mild distress from pain, morbidly obese HEENT: Normocephalic, atraumatic, Neck: supple, No JVD Lungs: Clear to auscultation bilaterally, no wheeze Heart:S1 and S2 regular, no murmurs, rubs or gallop, Abd:soft, non tender, non distended, normal bowel sounds Ext: Erythema, tender, swollen left upper inner thigh, no clubbing or cyanosis Neuro:Awake,alert,oriented x 3, moves all ext, no focal neurological signs Psych:Normal mood - Constitutional Vitals: Temp Pulse Resp BP Pulse Ox 98.1 F 96 H 20 156/77 97 06/04/18 11:09 06/04/18 11:09 06/04/18 11:09 06/04/18 11:09 06/04/18 11:09 Results - Labs CBC & Chem 7: 06/03/18 08:44 06/03/18 07:01 Labs: Laboratory Last Values WBC 6.9 K/mm3 (4.5-11.0) 06/03/18 08:44 RBC 3.08 M/mm3 (3.65-5.03) L 06/03/18 08:44 Hgb 10.1 gm/dl (10.1-14.3) 06/03/18 08:44 Hct 29.6 % (30.3-42.9) L D 06/03/18 08:44 MCV 96 fl (79-97) 06/03/18 08:44 MCH 33 pg (28-32) H 06/03/18 08:44 MCHC 34 % (30-34) 06/03/18 08:44 RDW 14.3 % (13.2-15.2) 06/03/18 08:44 Plt Count 106 K/mm3 (140-440) L 06/03/18 08:44 Lymph % (Auto) Tech Ed Teacher 06/02/18 03:50 [place] % (Auto) Tech Ed Teacher 06/02/18 03:50 Eos % (Auto) Tech Ed Teacher 06/02/18 03:50 Baso % (Auto) Tech Ed Teacher 06/02/18 03:50 Lymph # Tech Ed Teacher 06/02/18 03:50 [place] # Tech Ed Teacher 06/02/18 03:50 Eos # Tech Ed Teacher 06/02/18 03:50 Baso # Tech Ed Teacher 06/02/18 03:50 Seg Neutrophils % Tech Ed Teacher 06/02/18 03:50 Seg Neutrophils # Tech Ed Teacher 06/02/18 03:50 PT 12.4 Sec. (12.2-14.9) 06/01/18 14:33 INR 0.87 (0.87-1.13) 06/01/18 14:33 Sodium 136 mmol/L (137-145) L D 06/03/18 07:01 Potassium 3.5 mmol/L (3.6-5.0) L 06/03/18 07:01 Chloride 101.1 mmol/L (98-107) 06/03/18 07:01 Carbon Dioxide 21 mmol/L (22-30) L 06/03/18 07:01 Anion Gap 17 mmol/L 06/03/18 07:01 BUN 15 mg/dL (7-17) 06/03/18 07:01 Creatinine 0.6 mg/dL (0.7-1.2) L 06/03/18 07:01 Estimated GFR > 60 ml/min 06/03/18 07:01 BUN/Creatinine Ratio 25 % 06/03/18 07:01 Glucose 209 mg/dL (65-100) H 06/03/18 07:01 POC Glucose 326 (70-105) H 06/04/18 11:19 Hemoglobin A1c 11.2 % (4-6) H 06/02/18 21:53 Lactic Acid 1.90 mmol/L (0.7-2.0) 06/01/18 22:54 Calcium 8.6 mg/dL (8.4-10.2) 06/03/18 07:01 Total Bilirubin 0.50 mg/dL (0.1-1.2) 06/01/18 14:33 AST 28 units/L (5-40) 06/01/18 14:33 ALT 48 units/L (7-56) 06/01/18 14:33 Alkaline Phosphatase 150 units/L (35-129) H 06/01/18 14:33 C-Reactive Protein 27.90 mg/dL (0.00-1.30) H 06/02/18 21:53 Total Protein 8.4 g/dL (6.3-8.2) H 06/01/18 14:33 Albumin 4.0 g/dL (3.9-5) 06/01/18 14:33 Albumin/Globulin Ratio 0.9 % 06/01/18 14:33 Urine Color Yellow (Yellow) 06/01/18 16:30 Urine Turbidity Clear (Clear) 06/01/18 16:30 Urine pH 6.0 (5.0-7.0) 06/01/18 16:30 Ur Specific [place] 1.030 (1.003-1.030) 06/01/18 16:30 Urine Protein 100 mg/dl mg/dL (Negative) 06/01/18 16:30 Urine Glucose (UA) >=500 mg/dL (Negative) 06/01/18 16:30 Urine Ketones Neg mg/dL (Negative) 06/01/18 16:30 Urine Blood Sm (Negative) 06/01/18 16:30 Urine Nitrite Pos (Negative) 06/01/18 16:30 Urine Bilirubin Neg (Negative) 06/01/18 16:30 Urine Urobilinogen < 2.0 mg/dL (<2.0) 06/01/18 16:30 Ur Leukocyte Esterase Neg (Negative) 06/01/18 16:30 Urine WBC (Auto) 10.0 /HPF (0.0-6.0) H 06/01/18 16:30 Urine RBC (Auto) 4.0 /HPF (0.0-6.0) 06/01/18 16:30 U Epithel Cells (Auto) 2.0 /HPF (0-13.0) 06/01/18 16:30 Urine Bacteria (Auto) 1+ /HPF (Negative) 06/01/18 16:30 Urine Mucus Few /HPF 06/01/18 16:30 Nutrition/Malnutrition Assess - Dietary Evaluation Nutrition/Malnutrition Findings: Nutrition Notes Start: 06/02/18 13:23 Freq: Status: Active Protocol: Document 06/03/18 11:47 SA (Rec: 06/03/18 12:28 SA [id number]) Co-Sign 06/03/18 11:47 RM Nutrition Notes 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 Pt aware of diabetes control by diet. Patient states appetite is not good. Pt reports eating 50% of meals. Pt has had vomiting. Pt unsure of UBW. Percent of energy/protein needs met: 58%/54% GI Symptoms Vomiting #1 Nutrition Diagnosis Inadequate oral intake Etiology poor appitite As Evidenced by Signs and Symptoms pt eating 50% of meals Is patient on ventilator? No Is Patient Ambulatory and/or Out of Bed Yes REE-(Car[place]-St. Jeor-ambulatory/OOB) [ 2325.869 NUTR.MSJOOB] Kcal/Kg value to use for calculation 16 Approximate Energy Requirements Using 1816 kcal/Kg Additional Notes Protein: 83-100 g (1-1.2 g/kg AdBW: 83kg) Fluid: 1 ml/kcal Nutrition Intervention Change Diet Order: Cardiac/Consistent CHO Add Supplement/Snack (indicate name/kcal Glucerna one daily /protein ) Provides kCal: 220 Provides Protein (gm) 10 Teaching Methods Handout Education Handouts Provided Carbohydrate Counting Goal #1 Meet at least 75% of needs via PO intake Anticipated Discharge Needs: Consistent CHO diet Follow-Up By: 06/08/18 Additional Comments F/U: PO and ONS intake
[2018-06-04] MEDS: REGLAN IV PRN (21:53)
[2018-06-04] MEDS: XANAX PO SCH (22:00)
[2018-06-04] MEDS: AMBIEN PO SCH (22:00)
[2018-06-05] MEDS: MORPHINE IV PRN ×4 (04:46→16:09)
[2018-06-05] MEDS: TORADOL IV SCH (06:00)
[2018-06-05] MEDS: FLAGYL 500 MG/100 ML 500 MG/100 ML BAG IV SCH (06:14)
[2018-06-05] MEDS: REGLAN IV PRN (06:41)
[2018-06-05] MEDS: HumaLOG SUB-Q SCH ×2 (08:57→13:31)
[2018-06-05] MEDS: MAXIPIME/NS 2 GM/100 ML 2 GM/100 ML BAG IV SCH (09:10)
[2018-06-05 12:17] VITALS: BP 138/71
[2018-06-05] MEDS: VANCOMYCIN 1,750 MG in NACL 0.9% 500 ML 500 ML IV SCH ×2 (12:40)
[2018-06-05] MEDS: EPIVIR PO SCH (12:44)
[2018-06-05] MEDS: ELAVIL PO SCH (12:44)
[2018-06-05] MEDS: NEURONTIN PO SCH (12:44)
[2018-06-05] MEDS: celeXA PO SCH (12:44)
[2018-06-05] MEDS: TIVICAY PO SCH (12:45)
[2018-06-05] MEDS: PROTONIX PO SCH (12:45)
[2018-06-05] MEDS: ZIAGEN PO SCH (12:45)
[2018-06-05] MEDS: SODIUM CHLORIDE FLUSH SYRINGE 10 ML IV SCH (12:45)
--- NOTE | 2018-06-05 13:33 | Progress Note ---
Hospitalist Physical - Constitutional Vitals: Temp Pulse Resp BP Pulse Ox 99.5 F 97 H 20 138/71 96 06/05/18 11:57 06/05/18 11:57 06/05/18 11:57 06/05/18 11:57 06/05/18 11:57 General appearance: Present: mild distress Results - Labs CBC & Chem 7: 06/03/18 08:44 06/03/18 07:01 Labs: Laboratory Last Values WBC 6.9 K/mm3 (4.5-11.0) 06/03/18 08:44 RBC 3.08 M/mm3 (3.65-5.03) L 06/03/18 08:44 Hgb 10.1 gm/dl (10.1-14.3) 06/03/18 08:44 Hct 29.6 % (30.3-42.9) L D 06/03/18 08:44 MCV 96 fl (79-97) 06/03/18 08:44 MCH 33 pg (28-32) H 06/03/18 08:44 MCHC 34 % (30-34) 06/03/18 08:44 RDW 14.3 % (13.2-15.2) 06/03/18 08:44 Plt Count 106 K/mm3 (140-440) L 06/03/18 08:44 Lymph % (Auto) Research Technician 06/02/18 03:50 [place] % (Auto) Research Technician 06/02/18 03:50 Eos % (Auto) Research Technician 06/02/18 03:50 Baso % (Auto) Research Technician 06/02/18 03:50 Lymph # Research Technician 06/02/18 03:50 [place] # Research Technician 06/02/18 03:50 Eos # Research Technician 06/02/18 03:50 Baso # Research Technician 06/02/18 03:50 Seg Neutrophils % Research Technician 06/02/18 03:50 Seg Neutrophils # Research Technician 06/02/18 03:50 PT 12.4 Sec. (12.2-14.9) 06/01/18 14:33 INR 0.87 (0.87-1.13) 06/01/18 14:33 Sodium 136 mmol/L (137-145) L D 06/03/18 07:01 Potassium 3.5 mmol/L (3.6-5.0) L 06/03/18 07:01 Chloride 101.1 mmol/L (98-107) 06/03/18 07:01 Carbon Dioxide 21 mmol/L (22-30) L 06/03/18 07:01 Anion Gap 17 mmol/L 06/03/18 07:01 BUN 15 mg/dL (7-17) 06/03/18 07:01 Creatinine 0.6 mg/dL (0.7-1.2) L 06/03/18 07:01 Estimated GFR > 60 ml/min 06/03/18 07:01 BUN/Creatinine Ratio 25 % 06/03/18 07:01 Glucose 209 mg/dL (65-100) H 06/03/18 07:01 POC Glucose 200 (70-105) H 06/05/18 11:11 Hemoglobin A1c 11.2 % (4-6) H 06/02/18 21:53 Lactic Acid 1.90 mmol/L (0.7-2.0) 06/01/18 22:54 Calcium 8.6 mg/dL (8.4-10.2) 06/03/18 07:01 Total Bilirubin 0.50 mg/dL (0.1-1.2) 06/01/18 14:33 AST 28 units/L (5-40) 06/01/18 14:33 ALT 48 units/L (7-56) 06/01/18 14:33 Alkaline Phosphatase 150 units/L (35-129) H 06/01/18 14:33 C-Reactive Protein 27.90 mg/dL (0.00-1.30) H 06/02/18 21:53 Total Protein 8.4 g/dL (6.3-8.2) H 06/01/18 14:33 Albumin 4.0 g/dL (3.9-5) 06/01/18 14:33 Albumin/Globulin Ratio 0.9 % 06/01/18 14:33 Urine Color Yellow (Yellow) 06/01/18 16:30 Urine Turbidity Clear (Clear) 06/01/18 16:30 Urine pH 6.0 (5.0-7.0) 06/01/18 16:30 Ur Specific [place] 1.030 (1.003-1.030) 06/01/18 16:30 Urine Protein 100 mg/dl mg/dL (Negative) 06/01/18 16:30 Urine Glucose (UA) >=500 mg/dL (Negative) 06/01/18 16:30 Urine Ketones Neg mg/dL (Negative) 06/01/18 16:30 Urine Blood Sm (Negative) 06/01/18 16:30 Urine Nitrite Pos (Negative) 06/01/18 16:30 Urine Bilirubin Neg (Negative) 06/01/18 16:30 Urine Urobilinogen < 2.0 mg/dL (<2.0) 06/01/18 16:30 Ur Leukocyte Esterase Neg (Negative) 06/01/18 16:30 Urine WBC (Auto) 10.0 /HPF (0.0-6.0) H 06/01/18 16:30 Urine RBC (Auto) 4.0 /HPF (0.0-6.0) 06/01/18 16:30 U Epithel Cells (Auto) 2.0 /HPF (0-13.0) 06/01/18 16:30 Urine Bacteria (Auto) 1+ /HPF (Negative) 06/01/18 16:30 Urine Mucus Few /HPF 06/01/18 16:30 Nutrition/Malnutrition Assess - Dietary Evaluation Nutrition/Malnutrition Findings: Nutrition Notes Start: 06/02/18 13:23 Freq: Status: Active Protocol: Document 06/03/18 11:47 (Rec: 06/03/18 12:28 [id number]) Co-Sign 06/03/18 11:47 Nutrition Notes 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 Pt aware of diabetes control by diet. Patient states appetite is not good. Pt reports eating 50% of meals. Pt has had vomiting. Pt unsure of UBW. Percent of energy/protein needs met: 58%/54% GI Symptoms Vomiting #1 Nutrition Diagnosis Inadequate oral intake Etiology poor appitite As Evidenced by Signs and Symptoms pt eating 50% of meals Is patient on ventilator? No Is Patient Ambulatory and/or Out of Bed Yes REE-([place]-St. Jeor-ambulatory/OOB) [ 2325.869 NUTR.MSJOOB] Kcal/Kg value to use for calculation 16 Approximate Energy Requirements Using 1816 kcal/Kg Additional Notes Protein: 83-100 g (1-1.2 g/kg AdBW: 83kg) Fluid: 1 ml/kcal Nutrition Intervention Change Diet Order: Cardiac/Consistent CHO Add Supplement/Snack (indicate name/kcal Glucerna one daily /protein ) Provides kCal: 220 Provides Protein (gm) 10 Teaching Methods Handout Education Handouts Provided Carbohydrate Counting Goal #1 Meet at least 75% of needs via PO intake Anticipated Discharge Needs: Consistent CHO diet Follow-Up By: 06/08/18 Additional Comments F/U: PO and ONS intake
[2018-06-05 14:14] LABS: Hematocrit 33.1 % (30.3-42.9); Hemoglobin 11.1 gm/dl (10.1-14.3); Mean Corpuscular HGB Conc 34 % (30-34); Mean Corpuscular Volume 95 fl (79-97)
[2018-06-05 14:16] LABS: Platelet Count 180 K/mm3 (140-440)
[2018-06-05 14:22] LABS: BUN/Creatinine Ratio 18; Blood Urea Nitrogen 11 mg/dL (7-17); Calcium 9.1 mg/dL (8.4-10.2); Hemolysis Index 31
--- NOTE | 2018-06-05 15:17 | Discharge Summary ---
Providers - Providers Date of Admission: 06/01/18 17:19 Date of discharge: 06/05/18 Attending physician: JENARO ARMENTA 06/01/18 17:08 Consult to Physician [CONS] Stat Comment: Consulting Provider: ANA CORTES Physician Instructions: Reason For Exam: thigh abscess 06/02/18 07:40 Consult to Physician [CONS] Routine Comment: Consulting Provider: JERRY MEEK Physician Instructions: Reason For Exam: Sepsis,abscess thigh, HIV Primary care physician: OMAIRA CONTRERAS Hospitalization Condition: Fair Hospital course: Patient is 38 yo with HIV infection, on HAART Therapy, hypertension, diabetes, morbid obesity and nicotine dependence. She presents to ED for evaluation because of fever, redness and pain to the left thigh for 3 days prior to presentation. She was evaluated in ED and diagnosed sepsis secondary to Left thigh Cellulitis. Patient was started on iv Antibiotics and admitted. She was evaluated by Surgeon and ID physician. 06/02/2018 Dr. Cortes, surgeon did incision and drainage of left thigh abscess and exploration of left thigh. Patient was put on cefepime , vancomycin and Flagyl. She improved slowly and subsequently discharged home on 06/05/[address] Cortes as outpatient.. Time spent on discharge, 33 minutes. Disposition: - TO HOME OR SELFCARE - Discharge Diagnoses (1) Sepsis Status: Acute (2) Diabetes mellitus type 2 in obese Status: Acute (3) Abscess of left thigh Status: Acute (4) Fever in adult Status: Acute (5) HIV (human immunodeficiency virus infection) Status: Acute (6) Hyperlipidemia Status: Acute (7) Hypertension Status: Acute Qualifiers: Hypertension type: essential hypertension Qualified Code(s): I10 - Essential (primary) hypertension Core Measure Documentation - Palliative Care Palliative Care/ Comfort Measures: Not Applicable - Core Measures Any of the following diagnoses?: none Exam - Constitutional Vitals: Temp Pulse Resp BP Pulse Ox 99.5 F 97 H 20 138/71 96 06/05/18 11:57 06/05/18 11:57 06/05/18 11:57 06/05/18 11:57 06/05/18 11:57 Plan Activity: advance as tolerated Diet: low fat, low cholesterol, low salt, diabetic Additional Instructions: 1.Follow up with PCP or [facility] in 3-5 days. 2.Follow up with Dr. Vogel, ID Physician in 5-7 days. 3.Follow up with Dr. Cortes on Thu06/09/18 Follow up with: OMAIRA CONTRERAS MD [Primary Care Provider] - 7 Days Prescriptions: cefUROXime [Ceftin] 500 mg PO Q12H 10 Days tablet oxyCODONE /ACETAMINOPHEN [Percocet 5/325] 1 tab PO Q6HR PRN #20 tablet PRN Reason: Pain
[2018-06-05] MEDS ORDERED: LANTUS SUB-Q SCH (22:00)
[2018-06-08] MEDS ORDERED: IBUPROFEN PO PRN (16:00)
== END 2018-06-05 17:44 | disposition home or self-care (01) | DRG 975 ==
LOC: ED 12:46 → 3A 17:19
PROVIDERS: ADMIT Internal Medicine; ATTEND Internal Medicine
PROC: 0J9M0ZZ Drainage of Left Upper Leg Subcutaneous Tissue and Fascia, Open Approach (ICD-10-PCS; principal; 2018-06-02)
DX: B20 Human immunodeficiency virus [HIV] disease (principal); A41.9 Sepsis, unspecified organism; L03.116 Cellulitis of left lower limb; E66.2 Morbid (severe) obesity with alveolar hypoventilation; Z68.41 Body mass index [BMI] 40.0-44.9, adult; L03.314 Cellulitis of groin; L02.416 Cutaneous abscess of left lower limb; E11.65 Type 2 diabetes mellitus with hyperglycemia; F41.9 Anxiety disorder, unspecified; F32.9 Major depressive disorder, single episode, unspecified; E78.5 Hyperlipidemia, unspecified; E78.00 Pure hypercholesterolemia, unspecified; J45.909 Unspecified asthma, uncomplicated; F17.210 Nicotine dependence, cigarettes, uncomplicated; Z71.3 Dietary counseling and surveillance; Z83.3 Family history of diabetes mellitus; Z82.49 Family history of ischemic heart disease and other diseases of the circulatory system; Z90.49 Acquired absence of other specified parts of digestive tract; Z90.89 Acquired absence of other organs; Z88.8 Allergy status to other drugs, medicaments and biological substances; Z91.041 Radiographic dye allergy status; Z91.013 Allergy to seafood; Z79.4 Long term (current) use of insulin; Z90.710 Acquired absence of both cervix and uterus; Z71.6 Tobacco abuse counseling
CPT/HCPCS: 36415; 72192; 80048; 80053; 81001; 82140; 82962; 83036; 85025; 85027; 85610; 86140; 87040; 87075; 87076; 87116; 87186; 93005; 93010; 99406; G0378; A9270-GY; J0692; J1170; J1815; J1885; J2250; J2270; J2405; J2543; J2704; J2765; J3010; J3370; J7030; J7040; Q9967

== ENCOUNTER 2018-06-21 10:09 | Outpatient (CLI) | payer MEDICARE ==
[2018-06-21] MEDS ORDERED: XYLOCAINE TOPICAL 4% TP ONE (10:22)
[2018-06-21] MEDS ORDERED: SODIUM CHLORIDE FLUSH SYRINGE 10 ML IV PRN (11:00)
[2018-06-21] MEDS ORDERED: XYLOCAINE 1% 20 mL INFILTRATI ONE (11:10)
[2018-06-21] MEDS ORDERED: XYLOCAINE 1%/ EPI 1:100,000 INFILTRATI ONE (11:30)
[2018-06-22] MEDS ORDERED: AD OINTMENT TP SCH (10:00)
== END 2018-06-21 10:10 | disposition home or self-care (01) ==
LOC: WOUND 10:09
PROVIDERS: ATTEND Surgery
DX: E11.622 Type 2 diabetes mellitus with other skin ulcer (principal); L98.491 Non-pressure chronic ulcer of skin of other sites limited to breakdown of skin; L73.2 Hidradenitis suppurativa; K21.9 Gastro-esophageal reflux disease without esophagitis; I10 Essential (primary) hypertension; E78.00 Pure hypercholesterolemia, unspecified; F41.9 Anxiety disorder, unspecified; F17.210 Nicotine dependence, cigarettes, uncomplicated; Z90.49 Acquired absence of other specified parts of digestive tract; Z90.710 Acquired absence of both cervix and uterus
CPT/HCPCS: 10060; 87075; 87116; G0463; 87076; 87186; 99215

== ENCOUNTER 2018-06-28 09:43 | Outpatient (CLI) | payer MEDICARE | END 2018-06-28 09:44 | disposition home or self-care (01) | LOC: WOUND 09:43 | PROVIDERS: ATTEND Surgery | DX: E11.622 Type 2 diabetes mellitus with other skin ulcer (principal); L98.492 Non-pressure chronic ulcer of skin of other sites with fat layer exposed; L73.2 Hidradenitis suppurativa; K21.9 Gastro-esophageal reflux disease without esophagitis; I10 Essential (primary) hypertension; E78.00 Pure hypercholesterolemia, unspecified; F41.9 Anxiety disorder, unspecified; F17.210 Nicotine dependence, cigarettes, uncomplicated; Z90.49 Acquired absence of other specified parts of digestive tract; Z90.710 Acquired absence of both cervix and uterus | CPT/HCPCS: 97605 ==

== ENCOUNTER 2018-07-12 09:48 | Outpatient (CLI) | payer MEDICARE ==
[2018-07-12] MEDS ORDERED: XYLOCAINE TOPICAL 4% TP ONE (10:30)
== END 2018-07-12 09:49 | disposition home or self-care (01) ==
LOC: WOUND 09:48
PROVIDERS: ATTEND Surgery
DX: E11.622 Type 2 diabetes mellitus with other skin ulcer (principal); L98.492 Non-pressure chronic ulcer of skin of other sites with fat layer exposed; L73.2 Hidradenitis suppurativa; K21.9 Gastro-esophageal reflux disease without esophagitis; I10 Essential (primary) hypertension; E78.00 Pure hypercholesterolemia, unspecified; F41.9 Anxiety disorder, unspecified; F17.210 Nicotine dependence, cigarettes, uncomplicated; Z90.49 Acquired absence of other specified parts of digestive tract; Z90.710 Acquired absence of both cervix and uterus
CPT/HCPCS: 99214; G0463

== ENCOUNTER 2018-07-19 09:47 | Outpatient (CLI) | payer MEDICARE ==
[2018-07-19] MEDS ORDERED: XYLOCAINE TOPICAL 4% TP ONE (10:10)
== END 2018-07-19 09:48 | disposition home or self-care (01) ==
LOC: WOUND 09:47
PROVIDERS: ATTEND Surgery
DX: E11.622 Type 2 diabetes mellitus with other skin ulcer (principal); L98.491 Non-pressure chronic ulcer of skin of other sites limited to breakdown of skin; L73.2 Hidradenitis suppurativa; I10 Essential (primary) hypertension; E78.00 Pure hypercholesterolemia, unspecified; F41.9 Anxiety disorder, unspecified; Z90.49 Acquired absence of other specified parts of digestive tract; Z90.710 Acquired absence of both cervix and uterus; F17.210 Nicotine dependence, cigarettes, uncomplicated
CPT/HCPCS: 99213; G0463

== ENCOUNTER 2018-08-09 10:13 | Outpatient (CLI) | payer MEDICARE ==
[2018-08-09] MEDS ORDERED: XYLOCAINE TOPICAL 4% TP ONE (11:20)
== END 2018-08-09 10:14 | disposition home or self-care (01) ==
LOC: WOUND 10:13
PROVIDERS: ATTEND Surgery
DX: E11.622 Type 2 diabetes mellitus with other skin ulcer (principal); L98.491 Non-pressure chronic ulcer of skin of other sites limited to breakdown of skin; L73.2 Hidradenitis suppurativa; I10 Essential (primary) hypertension; E78.00 Pure hypercholesterolemia, unspecified; F41.9 Anxiety disorder, unspecified; Z90.49 Acquired absence of other specified parts of digestive tract; Z90.710 Acquired absence of both cervix and uterus
CPT/HCPCS: 17250

== ENCOUNTER 2018-10-06 06:57 | Emergency (ER) | payer MEDICARE ==
[2018-10-06 08:16] LABS: Bilirubin,Urine NEG (Negative); Blood,Urine NEG (Negative); Color,Urine Yellow (Yellow); Mucus,Urine FEW /HPF; Urobilinogen,Urine < 2.0 mg/dL (<2.0)
[2018-10-06 08:26] LABS: HCG Qualitative,Urine Negative (Negative)
[2018-10-06] MEDS ORDERED: NACL 0.9% 1000 ML 1,000 ML IV ONE (09:12)
[2018-10-06] MEDS ORDERED: ZOFRAN IV ONE (09:12)
[2018-10-06] MEDS ORDERED: CLEOCIN 600 MG/50 mL 600 MG/50 ML BAG IV ONE (09:12)
[2018-10-06] MEDS ORDERED: TORADOL IV ONE (09:12)
[2018-10-06 09:44] LABS: Basophils % (Auto) 0.3 % (0.0-1.8); Eosinophils # (Auto) 0.2 K/mm3 (0.0-0.4); Eosinophils % (Auto) 2.9 % (0.0-4.3); Hematocrit 37.8 % (30.3-42.9); Lymphocytes # (Auto) 2.7 K/mm3 (1.2-5.4); Lymphocytes % (Auto) 43.5 % (13.4-35.0); Mean Corpuscular HGB Conc 34 % (30-34); Mean Corpuscular Volume 93 fl (79-97); Monocytes # (Auto) 0.4 K/mm3 (0.0-0.8); Monocytes % (Auto) 6.8 % (0.0-7.3); Platelet Count 152 K/mm3 (140-440); Red Blood Count 4.07 M/mm3 (3.65-5.03); Red Cell Distribution Width 15.2 % (13.2-15.2)
[2018-10-06] MEDS ORDERED: XYLOCAINE 1%/ EPI 1:100,000 INFILTRATI NR (10:00)
[2018-10-06 10:01] LABS: BUN/Creatinine Ratio 26; Blood Urea Nitrogen 18 mg/dL (7-17); Calcium 9.9 mg/dL (8.4-10.2); Hemolysis Index 17
[2018-10-06] MEDS ORDERED: DILAUDID IV ONE (10:04)
--- NOTE | 2018-10-06 11:17 | Cat Scan Report ---
CT ABDOMEN AND PELVIS WITHOUT CONTRAST HISTORY: Right flank pain, right abdominal pain for 4-5 days COMPARISON: 05/10/2018 TECHNIQUE: Routine abdominal and pelvic CT exam performed . Sagittal and coronal reformatted images. CONTRAST: None. FINDINGS: CT ABDOMEN: Lung Bases: Clear. Liver: No significant abnormality. Biliary: Cholecystectomy changes. No biliary dilatation. Spleen: No significant abnormality. Unenlarged. Pancreas: No significant abnormality. Adrenals: No significant abnormality. Kidneys: Both kidneys are normal size, contour and position. There is mild bilateral perinephric stra nding. A 2.5 cm cyst is suspected in the mid right kidney. There are a few scattered punctate renal c alyceal stones in both kidneys. The ureters are normal course and caliber. No ureteral stones or hydr onephrosis is identified. The bladder is unremarkable. Lymphatics: There are multiple borderline bilateral inguinal lymph nodes, left greater than right. Th ere is subtle skin induration and trace gas in the left groin soft tissues which is of uncertain sign ificance. Please correlate with the patient and consider a focal cellulitis. No pathologic adenopathy is identified. Vasculature: No significant abnormality. Bowel/Peritoneum: No significant abnormality. No free air. No free fluid. Normal appendix. CT PELVIC: : Hysterectomy changes are suspected. The ovaries are not identified. Osseous Structures: Intact. Mild degenerative disc disease at L5-S1. Additional Findings: There is laxity of the anterior abdominal wall but no focal ventral wall defect is identified. IMPRESSION: Punctate bilateral renal calyceal stones are identified. No ureteral stones or hydronephrosis is iden tified. 2.5 cm right renal cyst. Focal skin induration in the left groin region as outlined above. Please correlate with the patient. Cholecystectomy. Hysterectomy. Signer Name: Mian Malloy Jr, MD Signed: 10/06/2018 11:13 AM Workstation Name: [id number]
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
[2018-10-06 12:07] VITALS: BP 179/97
[2018-10-06] MEDS ORDERED: XYLOCAINE 1%/ EPI 1:100,000 INFILTRATI ONE (12:42)
== END 2018-10-06 12:07 | disposition home or self-care (01) ==
LOC: ED 06:57
DX: L02.214 Cutaneous abscess of groin (principal); E11.65 Type 2 diabetes mellitus with hyperglycemia; R11.2 Nausea with vomiting, unspecified; I10 Essential (primary) hypertension; F41.9 Anxiety disorder, unspecified; F32.9 Major depressive disorder, single episode, unspecified; J45.909 Unspecified asthma, uncomplicated; E78.00 Pure hypercholesterolemia, unspecified; F17.200 Nicotine dependence, unspecified, uncomplicated; Z79.899 Other long term (current) drug therapy; Z79.1 Long term (current) use of non-steroidal anti-inflammatories (NSAID); Z88.2 Allergy status to sulfonamides; Z91.013 Allergy to seafood; Z88.5 Allergy status to narcotic agent; Z91.041 Radiographic dye allergy status; Z21 Asymptomatic human immunodeficiency virus [HIV] infection status; Z90.49 Acquired absence of other specified parts of digestive tract; Z90.710 Acquired absence of both cervix and uterus; Z98.890 Other specified postprocedural states
CPT/HCPCS: 10060; 36415; 74176; 80048; 81001; 81025; 85025; 87086; 96365; 96375; 99284; J1170; J1885; J2405; J7030

== ENCOUNTER 2018-10-22 16:32 | Inpatient (IN) | payer MEDICARE ==
[2018-10-22] MEDS ORDERED: NACL 0.9% 500 ML 500 ML IV ONE (16:52)
[2018-10-22 17:08] LABS: Basophils % (Auto) 0.4 % (0.0-1.8); Eosinophils % (Auto) 0.5 % (0.0-4.3); Hematocrit 39.1 % (30.3-42.9); Hemoglobin 13.5 gm/dl (10.1-14.3); Lymphocytes # (Auto) 1.9 K/mm3 (1.2-5.4); Lymphocytes % (Auto) 20.9 % (13.4-35.0); Mean Corpuscular HGB Conc 35 % (30-34); Mean Corpuscular Volume 93 fl (79-97); Monocytes # (Auto) 0.6 K/mm3 (0.0-0.8); Monocytes % (Auto) 6.2 % (0.0-7.3); Platelet Count 170 K/mm3 (140-440); Red Blood Count 4.18 M/mm3 (3.65-5.03); Red Cell Distribution Width 14.4 % (13.2-15.2)
[2018-10-22] MEDS ORDERED: NACL 0.9% 1000 ML 1,000 ML ONE (17:24)
[2018-10-22 17:25] LABS: Alanine Aminotransferase 39 units/L (7-56); Albumin 3.8 g/dL (3.9-5); BUN/Creatinine Ratio 25; Blood Urea Nitrogen 20 mg/dL (7-17); Calcium 9.6 mg/dL (8.4-10.2); Hemolysis Index 3
[2018-10-22 17:27] LABS: INR 0.92 (0.87-1.13)
--- NOTE | 2018-10-22 17:42 | XRay Report ---
CHEST 2 VIEWS INDICATION / CLINICAL INFORMATION: possible Sepsis. COMPARISON: Chest x-ray on 09/15/2017. FINDINGS: SUPPORT DEVICES: None. HEART / MEDIASTINUM: No significant abnormality. LUNGS / PLEURA: No significant pulmonary or pleural abnormality. No pneumothorax. ADDITIONAL FINDINGS: No significant additional findings. IMPRESSION: 1. No acute findings. Signer Name: Juan Carlos Velasquez MD Signed: 10/22/2018 5:38 PM Workstation Name: [id number]
[2018-10-22] MEDS ORDERED: NACL 0.9% 1000 ML 1,000 ML IV ONE ×2 (18:10→19:07)
[2018-10-22] MEDS ORDERED: MAXIPIME/NS 2 GM/100 ML 2 GM/100 ML BAG IV ONE (18:11)
--- NOTE | 2018-10-22 18:16 | Emergency Department Report ---
ED General Adult HPI - General Chief complaint: Nausea/Vomiting/Diarrhea Stated complaint: NAUSEA/VOMITING Time Seen by Provider: 10/22/18 18:04 Source: patient Mode of arrival: Ambulatory Limitations: No Limitations - History of Present Illness Initial comments: She presents to the emergency department with a chief complaint of bilateral flank pain with nausea and vomiting that started today. Patient also states that she had a fever at home. Patient is concerned because she's been septic in the past and is concerned this is occurring now. Patient also complains of draining from a chronic wound of her left leg secondary to hidradenitis suppurat monik -: Gradual Radiation: flank Severity scale (0 -10): 6 Quality: aching Consistency: constant Improves with: none Worsens with: none Associated Symptoms: denies other symptoms Treatments Prior to Arrival: none - Related Data Home Medications Medication Instructions Recorded Confirmed Last Taken Atorvastatin [Lipitor] 40 mg PO HS 04/13/13 06/02/18 09/08/17 Gabapentin [Gralise] 800 mg PO TID 04/13/13 06/02/18 09/08/17 Abacavir/Dolutegravir/Lamivudi 1 each PO DAILY 07/10/15 06/02/18 09/08/17 [Triumeq 600-50-300 mg Tablet] ARIPiprazole [Abilify TAB] 15 mg PO QDAY 06/02/18 06/02/18 Unknown Lispro Insulin [HumaLOG] 80 units SQ QMONTH 06/02/18 06/02/18 Unknown [place] Carbonate [Eskalith] 300 mg PO BID 06/02/18 06/02/18 Unknown Mirtazapine 45 mg PO QHS 06/02/18 06/02/18 Unknown buPROPion XL [Wellbutrin XL] 150 mg PO QDAY 06/02/18 06/02/18 Unknown Previous Rx's Medication Instructions Recorded Last Taken Type Ibuprofen [Motrin 800 MG tab] 800 mg PO Q8HR PRN #20 tablet 05/21/17 Unknown Rx cefUROXime [Ceftin] 500 mg PO Q12H 10 Days tablet 06/05/18 Unknown Rx oxyCODONE /ACETAMINOPHEN [Percocet 1 tab PO Q6HR PRN #20 tablet 06/05/18 Unknown Rx 5/325] Clindamycin [Clindamycin CAP] 300 mg PO Q8H #21 cap 10/06/18 Unknown Rx Fluconazole [Diflucan TAB] 150 mg PO ONCE #1 tablet 10/06/18 Unknown Rx HYDROcodone/APAP 5-325 [[place] 1 each PO Q6HR PRN #14 tablet 10/06/18 Unknown Rx 5/325] Ibuprofen [Motrin 800 MG tab] 800 mg PO Q8HR PRN #10 tablet 10/06/18 Unknown Rx Nitrofurantoin [place]/M-Cryst 100 mg PO Q12HR #14 capsule 10/06/18 Unknown Rx [Macrobid CAP] Ondansetron [Zofran Odt] 4 mg PO Q8HR #10 tab.rapdis 10/06/18 Unknown Rx Allergies Allergy/AdvReac Type Severity Reaction Status Date / Time iodine Allergy Swelling Verified 10/22/18 17:47 sulfamethoxazole Allergy Rash Verified 10/22/18 17:47 [From Bactrim] trimethoprim [From Bactrim] Allergy Rash Verified 10/22/18 17:47 metformin AdvReac Nausea Verified 10/22/18 17:47 seafood Allergy Rash Uncoded 02/16/18 13:38 ED Review of Systems ROS: Stated complaint: NAUSEA/VOMITING Other details as noted in HPI Comment: All other systems reviewed and negative Constitutional: denies: chills, fever Eyes: denies: eye pain, eye discharge, vision change ENT: denies: ear pain, throat pain Respiratory: denies: cough, shortness of breath, wheezing Cardiovascular: denies: chest pain, palpitations Endocrine: no symptoms reported Gastrointestinal: abdominal pain, nausea, vomiting. denies: diarrhea Genitourinary: denies: urgency, dysuria, discharge Musculoskeletal: denies: back pain, joint swelling, arthralgia Skin: denies: rash, lesions Neurological: denies: headache, weakness, paresthesias Psychiatric: denies: anxiety, depression Hematological/Lymphatic: denies: easy bleeding, easy bruising ED Past Medical Hx - Past Medical History Hx Hypertension: Yes Hx Heart Attack/AMI: No Hx Diabetes: Yes Hx Deep Vein Thrombosis: No Hx Liver Disease: No Hx Renal Disease: No Hx Seizures: No Hx Psychiatric Treatment: Yes (anxiety depression) Hx Asthma: Yes (no inhaler use in several years) Hx COPD: No Hx HIV: Yes Additional medical history: HIGH CHOLESTEROL - Surgical History Hx Pacemaker: No Hx Internal Defibrillator: No Hx Cholecystectomy: Yes Additional Surgical History: d&c x1, insulin pump placement, TOTAL HYSTERECTOMY, boil removal to R inner thigh - Social History Smoking Status: Never Smoker Substance Use Type: None - Medications Home Medications: Home Medications Medication Instructions Recorded Confirmed Last Taken Type Atorvastatin [Lipitor] 40 mg PO HS 04/13/13 06/02/18 09/08/17 History Gabapentin [Gralise] 800 mg PO TID 04/13/13 06/02/18 09/08/17 History Abacavir/Dolutegravir/Lamivudi 1 each PO DAILY 07/10/15 06/02/18 09/08/17 History [Triumeq 600-50-300 mg Tablet] Ibuprofen [Motrin 800 MG tab] 800 mg PO Q8HR PRN #20 tablet 05/21/17 06/02/18 Unknown Rx ARIPiprazole [Abilify TAB] 15 mg PO QDAY 06/02/18 06/02/18 Unknown History Lispro Insulin [HumaLOG] 80 units SQ QMONTH 06/02/18 06/02/18 Unknown History [place] Carbonate [Eskalith] 300 mg PO BID 06/02/18 06/02/18 Unknown History Mirtazapine 45 mg PO QHS 06/02/18 06/02/18 Unknown History buPROPion XL [Wellbutrin XL] 150 mg PO QDAY 06/02/18 06/02/18 Unknown History cefUROXime [Ceftin] 500 mg PO Q12H 10 Days tablet 06/05/18 Unknown Rx oxyCODONE /ACETAMINOPHEN [Percocet 1 tab PO Q6HR PRN #20 tablet 06/05/18 Unknown Rx 5/325] Clindamycin [Clindamycin CAP] 300 mg PO Q8H #21 cap 10/06/18 Unknown Rx Fluconazole [Diflucan TAB] 150 mg PO ONCE #1 tablet 10/06/18 Unknown Rx HYDROcodone/APAP 5-325 [[place] 1 each PO Q6HR PRN #14 tablet 10/06/18 Unknown Rx 5/325] Ibuprofen [Motrin 800 MG tab] 800 mg PO Q8HR PRN #10 tablet 10/06/18 Unknown Rx Nitrofurantoin [place]/M-Cryst 100 mg PO Q12HR #14 capsule 10/06/18 Unknown Rx [Macrobid CAP] Ondansetron [Zofran Odt] 4 mg PO Q8HR #10 tab.rapdis 10/06/18 Unknown Rx ED Physical Exam - General Limitations: No Limitations General appearance: alert, in no apparent distress - Head Head exam: Present: atraumatic, normocephalic - Eye Eye exam: Present: normal appearance, PERRL, EOMI - ENT ENT exam: Present: mucous membranes dry - Neck Neck exam: Present: normal inspection - Respiratory Respiratory exam: Present: normal lung sounds bilaterally. Absent: respiratory distress - Cardiovascular Cardiovascular Exam: Present: normal rhythm, tachycardia. Absent: systolic mur mur, diastolic murmur, rubs, gallop - GI/Abdominal GI/Abdominal exam: Present: soft, tenderness (diffusely tender to palpation), normal bowel sounds. Absent: distended - Extremities Exam Extremities exam: Present: normal inspection - Back Exam Back exam: Present: normal inspection - Neurological Exam Neurological exam: Present: alert, oriented X3, CN II-XII intact. Absent: motor sensory deficit - Psychiatric Psychiatric exam: Present: normal affect, normal mood - Skin Skin exam: Present: warm, dry, normal color, other (the medial aspect of the left eye there is a healing wound with surrounding erythema and drainage). Absent: rash ED Course Vital Signs 10/22/18 10/22/18 16:53 20:32 Temperature 102.3 F H 99.5 F Pulse Rate 120 H Respiratory 20 Rate Blood Pressure 104/64 [Left] O2 Sat by Pulse 100 Oximetry ED Medical Decision Making - Lab Data Result diagrams: 10/22/18 16:54 10/22/18 16:54 Lab Results 10/22/18 10/22/18 10/22/18 Range/Units 16:53 16:54 16:54 WBC 9.0 (4.5-11.0) K/mm3 RBC 4.18 (3.65-5.03) M/mm3 Hgb 13.5 (10.1-14.3) gm/dl Hct 39.1 (30.3-42.9) % MCV 93 (79-97) fl MCH 32 (28-32) pg MCHC 35 H (30-34) % RDW 14.4 (13.2-15.2) % Plt Count 170 (140-440) K/mm3 Lymph % (Auto) 20.9 (13.4-35.0) % [place] % (Auto) 6.2 (0.0-7.3) % Eos % (Auto) 0.5 (0.0-4.3) % Baso % (Auto) 0.4 (0.0-1.8) % Lymph # 1.9 (1.2-5.4) K/mm3 [place] # 0.6 (0.0-0.8) K/mm3 Eos # 0.0 (0.0-0.4) K/mm3 Baso # 0.0 (0.0-0.1) K/mm3 Seg Neutrophils % 72.0 H (40.0-70.0) % Seg Neutrophils # 6.5 (1.8-7.7) K/mm3 PT 12.1 L (12.2-14.9) Sec. INR 0.92 (0.87-1.13) VBG pH (7.320-7.420) Sodium (137-145) mmol/L Potassium (3.6-5.0) mmol/L Chloride (98-107) mmol/L Carbon Dioxide (22-30) mmol/L Anion Gap mmol/L BUN (7-17) mg/dL Creatinine (0.7-1.2) mg/dL Estimated GFR ml/min BUN/Creatinine Ratio % Glucose (65-100) mg/dL POC Glucose 329 H (70-105) Lactic Acid (0.7-2.0) mmol/L Calcium (8.4-10.2) mg/dL Total Bilirubin (0.1-1.2) mg/dL AST (5-40) units/L ALT (7-56) units/L Alkaline Phosphatase (35-129) units/L Total Protein (6.3-8.2) g/dL Albumin (3.9-5) g/dL Albumin/Globulin Ratio % Urine Color (Yellow) Urine Turbidity (Clear) Urine pH (5.0-7.0) Ur Specific [place] (1.003-1.030) Urine Protein (Negative) mg/dL Urine Glucose (UA) (Negative) mg/dL Urine Ketones (Negative) mg/dL Urine Blood (Negative) Urine Nitrite (Negative) Urine Bilirubin (Negative) Urine Urobilinogen (<2.0) mg/dL Ur Leukocyte Esterase (Negative) Urine WBC (Auto) (0.0-6.0) /HPF Urine RBC (Auto) (0.0-6.0) /HPF U Epithel Cells (Auto) (0-13.0) /HPF Urine Bacteria (Auto) (Negative) /HPF Urine WBC Clumps /HPF Urine Yeast (Budding) /HPF 10/22/18 10/22/18 10/22/18 Range/Units 16:54 16:54 16:54 WBC (4.5-11.0) K/mm3 RBC (3.65-5.03) M/mm3 Hgb (10.1-14.3) gm/dl Hct (30.3-42.9) % MCV (79-97) fl MCH (28-32) pg MCHC (30-34) % RDW (13.2-15.2) % Plt Count (140-440) K/mm3 Lymph % (Auto) (13.4-35.0) % [place] % (Auto) (0.0-7.3) % Eos % (Auto) (0.0-4.3) % Baso % (Auto) (0.0-1.8) % Lymph # (1.2-5.4) K/mm3 [place] # (0.0-0.8) K/mm3 Eos # (0.0-0.4) K/mm3 Baso # (0.0-0.1) K/mm3 Seg Neutrophils % (40.0-70.0) % Seg Neutrophils # (1.8-7.7) K/mm3 PT (12.2-14.9) Sec. INR (0.87-1.13) VBG pH 7.531 H (7.320-7.420) Sodium 134 L (137-145) mmol/L Potassium 4.1 (3.6-5.0) mmol/L Chloride 97.8 L (98-107) mmol/L Carbon Dioxide 22 (22-30) mmol/L Anion Gap 18 mmol/L BUN 20 H (7-17) mg/dL Creatinine 0.8 (0.7-1.2) mg/dL Estimated GFR > 60 ml/min BUN/Creatinine Ratio 25 % Glucose 343 H (65-100) mg/dL POC Glucose (70-105) Lactic Acid 2.10 H* (0.7-2.0) mmol/L Calcium 9.6 (8.4-10.2) mg/dL Total Bilirubin 0.50 (0.1-1.2) mg/dL AST 24 (5-40) units/L ALT 39 (7-56) units/L Alkaline Phosphatase 130 H (35-129) units/L Total Protein 8.3 H (6.3-8.2) g/dL Albumin 3.8 L (3.9-5) g/dL Albumin/Globulin Ratio 0.8 % Urine Color (Yellow) Urine Turbidity (Clear) Urine pH (5.0-7.0) Ur Specific [place] (1.003-1.030) Urine Protein (Negative) mg/dL Urine Glucose (UA) (Negative) mg/dL Urine Ketones (Negative) mg/dL Urine Blood (Negative) Urine Nitrite (Negative) Urine Bilirubin (Negative) Urine Urobilinogen (<2.0) mg/dL Ur Leukocyte Esterase (Negative) Urine WBC (Auto) (0.0-6.0) /HPF Urine RBC (Auto) (0.0-6.0) /HPF U Epithel Cells (Auto) (0-13.0) /HPF Urine Bacteria (Auto) (Negative) /HPF Urine WBC Clumps /HPF Urine Yeast (Budding) /HPF 10/22/18 10/22/18 10/22/18 Range/Units 17:46 18:29 19:24 WBC (4.5-11.0) K/mm3 RBC (3.65-5.03) M/mm3 Hgb (10.1-14.3) gm/dl Hct (30.3-42.9) % MCV (79-97) fl MCH (28-32) pg MCHC (30-34) % RDW (13.2-15.2) % Plt Count (140-440) K/mm3 Lymph % (Auto) (13.4-35.0) % [place] % (Auto) (0.0-7.3) % Eos % (Auto) (0.0-4.3) % Baso % (Auto) (0.0-1.8) % Lymph # (1.2-5.4) K/mm3 [place] # (0.0-0.8) K/mm3 Eos # (0.0-0.4) K/mm3 Baso # (0.0-0.1) K/mm3 Seg Neutrophils % (40.0-70.0) % Seg Neutrophils # (1.8-7.7) K/mm3 PT (12.2-14.9) Sec. INR (0.87-1.13) VBG pH (7.320-7.420) Sodium (137-145) mmol/L Potassium (3.6-5.0) mmol/L Chloride (98-107) mmol/L Carbon Dioxide (22-30) mmol/L Anion Gap mmol/L BUN (7-17) mg/dL Creatinine (0.7-1.2) mg/dL Estimated GFR ml/min BUN/Creatinine Ratio % Glucose (65-100) mg/dL POC Glucose (70-105) Lactic Acid 1.80 1.80 (0.7-2.0) mmol/L Calcium (8.4-10.2) mg/dL Total Bilirubin (0.1-1.2) mg/dL AST (5-40) units/L ALT (7-56) units/L Alkaline Phosphatase (35-129) units/L Total Protein (6.3-8.2) g/dL Albumin (3.9-5) g/dL Albumin/Globulin Ratio % Urine Color [place] (Yellow) Urine Turbidity Cloudy (Clear) Urine pH 5.0 (5.0-7.0) Ur Specific [place] 1.023 (1.003-1.030) Urine Protein >500 (Negative) mg/dL Urine Glucose (UA) >=500 (Negative) mg/dL Urine Ketones Neg (Negative) mg/dL Urine Blood Mod (Negative) Urine Nitrite Neg (Negative) Urine Bilirubin Neg (Negative) Urine Urobilinogen < 2.0 (<2.0) mg/dL Ur Leukocyte Esterase Lg (Negative) Urine WBC (Auto) > 182.0 H (0.0-6.0) /HPF Urine RBC (Auto) 43.0 (0.0-6.0) /HPF U Epithel Cells (Auto) 5.0 (0-13.0) /HPF Urine Bacteria (Auto) 1+ (Negative) /HPF Urine WBC Clumps 3+ /HPF Urine Yeast (Budding) 1+ /HPF - Radiology Data Radiology results: report reviewed - Medical Decision Making Discussed plan of care with patient Critical Care Time: Yes Critical care time in (mins) excluding proc time.: 35 Critical care attestation.: If time is entered above; I have spent that time in minutes in the direct care of this critically ill patient, excluding procedure time. ED Disposition Clinical Impression: Sepsis, UTI (urinary tract infection), Cellulitis Disposition: [id number] OP ADMIT IP TO THIS HOSP Is pt being admited?: Yes Does the pt Need Aspirin: No Condition: Fair
[2018-10-22 18:41] LABS: Bacteria,Urine 1+ /HPF (Negative); Bilirubin,Urine NEG (Negative); Blood,Urine MOD (Negative); Color,Urine Amber (Yellow); Urobilinogen,Urine < 2.0 mg/dL (<2.0)
[2018-10-22 18:43] LABS: Protein,Urine >500 mg/dL (Negative); WBC,Urine > 182.0 /HPF (0.0-6.0)
[2018-10-22] MEDS ORDERED: MORPHINE IV ONE ×2 (19:31→20:33)
--- NOTE | 2018-10-22 19:48 | Cat Scan Report ---
CT abdomen pelvis wo con INDICATION / CLINICAL INFORMATION: flank pain. TECHNIQUE: Axial CT imaging of abdomen and pelvis was performed without IV or oral contrast. All CT scans at [facility] location are performed using CT dose reduction for ALARA by means of automated exposure control. COMPARISON: 10/06/2018 FINDINGS: CT abdomen without contrast demonstrates probable mild hepatic steatosis. Spleen is of normal size. P ancreas, adrenals, and abdominal aorta are unremarkable. Both kidneys demonstrate mild perinephric st randing as well as probable small right renal cyst. No definite calculi or hydronephrosis. The appear ance is grossly unchanged from recent CT scan of 10/06/2018. Cholecystectomy. CT pelvis demonstrates normal appearance of the appendix. No pelvic mass, free fluid, or focal inflam matory changes noted. There is mild/moderate retention of stool throughout the colon especially withi n the ascending colon. Uterus appears to be absent. On the prior CT, bilateral inguinal adenopathy, greater on the left, with skin induration and subcuta neous bubbles of gas were present. These findings are still present. There continues to be multiple m ildly enlarged inguinal lymph nodes bilaterally, greater on the left. There is still skin induration although this does appear to be slightly improved. No soft tissue gas is noted. Visualized lung bases are clear. No significant osseous abnormality is noted. IMPRESSION: 1. No acute findings. 2. Continued presence of bilateral inguinal adenopathy with induration of the left inguinal region. T hese findings were noted on the most recent CT scan of 10/06/2018. 3. Probable mild hepatic steatosis.. Signer Name: Gladis Magana MD Signed: 10/22/2018 7:43 PM Workstation Name: [id number]
[2018-10-22] MEDS: NACL 0.9% 1000 ML 1,000 ML IV SCH (19:57)
[2018-10-22] MEDS ORDERED: BENADRYL IV ONE (20:33)
[2018-10-22] MEDS ORDERED: TYLENOL PO ONE (21:56)
[2018-10-22] MEDS ORDERED: TYLENOL ONE (22:02)
[2018-10-22] MEDS ORDERED: ZOFRAN IV PRN (22:20)
[2018-10-22] MEDS ORDERED: D50W (25GM) Syringe IV PRN (22:21)
[2018-10-22] MEDS ORDERED: NACL 0.9% 1000 ML 1,000 ML IV SCH (23:00)
[2018-10-22] MEDS ORDERED: VANCOMYCIN 2,000 MG in NACL 0.9% 500 ML 500 ML IV ONE (23:00)
[2018-10-22] MEDS ORDERED: ZOSYN/NS 3.375GM/50ML 3.375 GM/50 ML BAG IV SCH (23:00)
[2018-10-22] MEDS ORDERED: VANCOMYCIN PHARMACY TO DOSE IV SCH (23:00)
[2018-10-22] MEDS: MORPHINE IV PRN (23:58)
[2018-10-22] MEDS: ZOSYN/NS 4.5GM/100ML 4.5 GM/100 ML VIAL IV SCH (23:59)
[2018-10-23] MEDS: NACL 0.9% 1000 ML 1,000 ML IV SCH ×3 (00:36→23:46)
[2018-10-23] MEDS: TYLENOL PO PRN ×3 (05:38→23:37)
[2018-10-23] MEDS: ZOSYN/NS 4.5GM/100ML 4.5 GM/100 ML VIAL IV SCH ×3 (06:28→21:27)
[2018-10-23] MEDS: MORPHINE IV PRN ×5 (06:28→22:34)
--- NOTE | 2018-10-23 06:46 | History and Physical Report ---
CHIEF COMPLAINT: Nausea, vomiting, and diarrhea. OTHER COMPLAINT: Includes pain and swelling in the inner part of left upper thigh. HISTORY OF PRESENT ILLNESS: The patient is a 38-year-old female who came to the Emergency Room because of nausea and vomiting with bilateral flank pain. Also the patient complaining of fever and pain with drainage of an old wound in the upper part of the inner aspect of left thigh. The patient said that the wound has been draining for some time and she has been seeing wound care nurse without resolution of the problem. There is no history of shortness of breath. No history of cough. The patient also denied history of abdominal pain. PAST MEDICAL HISTORY: Pertinent for hypertension, diabetes mellitus, anxiety disorder, HIV infection, high cholesterol. PAST SURGICAL HISTORY: Pertinent for cholecystectomy, insulin pump placement, total hysterectomy, remove of boil in the right inner thigh. FAMILY HISTORY: Noncontributory. SOCIAL HISTORY: The patient does not smoke, does not drink alcohol and does not use illicit drugs. MEDICATIONS: The patient is on Lipitor 40 mg at bedtime, gabapentin 800 mg 3 times daily, Triumeq 600/50/300 one by mouth daily, ibuprofen 800 mg by mouth every 8 hours, Abilify 15 mg by mouth daily, Lispro insulin 80 units subQ every monthly, lithium 300 mg by mouth twice daily, mirtazapine 45 mg at bedtime, Wellbutrin XL 150 mg by mouth daily, Ceftin 500 mg by mouth every 12 hours, Percocet 5/325 mg 1 by mouth every 6 hours as needed for pain, clindamycin 300 mg by mouth every 8 hours, nitrofurantoin 100 mg by mouth every 12 hours, Zofran ODT 4 mg by mouth every 8 hours. ALLERGIES: THE PATIENT IS ALLERGIC TO IODINE, SULFAMETHOXAZOLE-TRIMETHOPRIM, METFORMIN, SEA FOOD. REVIEW OF SYSTEMS: CONSTITUTIONAL: There is fever. There are no chills, no diaphoresis. HEENT: There is no headache or sore throat. CARDIOVASCULAR SYSTEM: There is no chest pain or orthopnea. RESPIRATORY SYSTEM: There is no shortness of breath or cough. GASTROINTESTINAL SYSTEM: There is nausea and vomiting, there is no abdominal pain. There is diarrhea. No constipation. NEUROLOGICAL SYSTEM: There is no numbness, no dizziness, no altered mental status. MUSCULOSKELETAL SYSTEM: There is pain in the left upper thigh area. DERMATOLOGICAL SYSTEM: There is drainage from the chronic wound area in the left inner part of the upper thigh. GENITOURINARY SYSTEM: There is no dysuria, hematuria, or flank pain. Rest of system review is normal. PHYSICAL EXAMINATION: GENERAL: At the time of exam, the patient was found to be alert, oriented x 3 and in mild distress due to pain in the left thigh area. VITAL SIGNS: At the initial time of presentation show temperature of 102.3 degrees Fahrenheit, pulse of 120, respirations 20, blood pressure 104/64, O2 sat of 100% on room air. HEENT: Shows pupils to be equal, round, reactive to light and accommodating. Extraocular muscles are intact. NECK: Supple with no JVD or carotid bruit. CARDIOVASCULAR SYSTEM: Shows normal first and second heart sounds with no gallops or murmurs. RESPIRATORY SYSTEM: Shows good air entry on both sides of the lungs with no abnormal breath sounds. GASTROINTESTINAL SYSTEM: Shows abdomen to be full, soft, nontender with no organomegaly or rigidity. NEUROLOGIC: Shows no focal deficit. MUSCULOSKELETAL: Shows tenderness in the left upper inner area of the thigh with an open skin area. DERMATOLOGICAL: Shows draining wound in the left upper inner part of the thigh. GENITOURINARY SYSTEM: Shows no costovertebral angle tenderness. PERTINENT LABORATORY DATA AND IMAGING STUDIES: The patient has CBC done with normal white count, normal hemoglobin, normal hematocrit with CBC differential showing slightly elevated segmented neutrophil count of 72%. The patient's coagulation studies were unremarkable. The patient's chemistry shows slight decrease in sodium level of 134 with slightly low chloride level of 97.8 and elevated blood glucose level of 343 with rest of chemistry showing slightly low albumin level of 3.8. The patient's urinalysis shows large urine leukocyte esterase with high urine WBC of 182 and high urine RBC of 43 with 1+ bacteria and 1+ yeast. DIAGNOSES: 1. Cellulitis of the left thigh area. 2. Sepsis. 3. Urinary tract infection. 4. Yeast infection. PLAN OF CARE: 1. The patient will be admitted to telemetry. 2. The patient will be on IV vancomycin with pharmacy adjusted dose. 3. The patient will be on IV Zosyn 3.375 gram every 8 hours. 4. The patient will be on consistent carbohydrate 2 g sodium diet. 5. The patient will be on Accu-Chek a.c. and at bedtime followed by low-dose sliding scale using regular insulin coverage. 6. The patient will be on IV morphine 2 mg every 3 hours as needed for pain and IV Zofran 4 mg every 8 hours for nausea and vomiting. 7. The patient will be on Tylenol 650 mg every 4 hours as needed for fever and headache. 8. The patient will be on IV normal saline which will be started at 125 mL an hour increased to 150 mL an hour. 9. The patient will have wound care nurse consult for evaluation and treatment of the left upper thigh chronic wound. JOB# [id number] OCN/NTS
[2018-10-23] MEDS: HumuLIN R SUB-Q SCH ×4 (08:58→22:36)
[2018-10-23] MEDS: ZOFRAN IV PRN ×2 (13:33→18:48)
[2018-10-23] MEDS: REGLAN IV PRN ×2 (13:35→22:35)
[2018-10-23] MEDS ORDERED: XYLOCAINE 1% 20 mL INFILTRATI ONE (14:52)
--- NOTE | 2018-10-23 14:54 | Consultation ---
History of Present Illness Consult date: 10/23/18 Chief complaint: left thigh wound/abscess - History of present illness History of present illness: 38 yo F with hx of poorly controlled diabetes who is well known to our service for wounds. The patient has required debridement of wounds, drainage of abscesses in the past. She also has hx of hidradenitis. The patient has been fo llowed up with in the wound care center for left thigh wound most recently. However she has been noncompliant and has been a no show for the last few visits. She presented back to ER with multiple complaints. She c/o constant draining from the left thigh area near the previous incision and drainage site. She states she is tired of being on antibiotics. No f/c, cp, sob. Blood sugars have been in the 300 range. Past History Past Medical History: diabetes, other (hidradenitis) Past Surgical History: Other (incision and drainage of abscesses, debridement of wounds of right and left thigh) Social history: no significant social history Family history: no significant family history Medications and Allergies Allergies Allergy/AdvReac Type Severity Reaction Status Date / Time iodine Allergy Swelling Verified 10/22/18 17:47 sulfamethoxazole Allergy Rash Verified 10/22/18 17:47 [From Bactrim] trimethoprim [From Bactrim] Allergy Rash Verified 10/22/18 17:47 metformin AdvReac Nausea Verified 10/22/18 17:47 seafood Allergy Rash Uncoded 02/16/18 13:38 Home Medications Medication Instructions Recorded Confirmed Last Taken Type Atorvastatin [Lipitor] 40 mg PO HS 04/13/13 06/02/18 09/08/17 History Gabapentin [Gralise] 800 mg PO TID 04/13/13 06/02/18 09/08/17 History Abacavir/Dolutegravir/Lamivudi 1 each PO DAILY 07/10/15 06/02/18 09/08/17 History [Triumeq 600-50-300 mg Tablet] Ibuprofen [Motrin 800 MG tab] 800 mg PO Q8HR PRN #20 tablet 05/21/17 06/02/18 Unknown Rx ARIPiprazole [Abilify TAB] 15 mg PO QDAY 06/02/18 06/02/18 Unknown History Lispro Insulin [HumaLOG] 80 units SQ QMONTH 06/02/18 06/02/18 Unknown History [place] Carbonate [Eskalith] 300 mg PO BID 06/02/18 06/02/18 Unknown History Mirtazapine 45 mg PO QHS 06/02/18 06/02/18 Unknown History buPROPion XL [Wellbutrin XL] 150 mg PO QDAY 06/02/18 06/02/18 Unknown History cefUROXime [Ceftin] 500 mg PO Q12H 10 Days tablet 06/05/18 Unknown Rx oxyCODONE /ACETAMINOPHEN [Percocet 1 tab PO Q6HR PRN #20 tablet 06/05/18 Unknown Rx 5/325] Clindamycin [Clindamycin CAP] 300 mg PO Q8H #21 cap 10/06/18 Unknown Rx Fluconazole [Diflucan TAB] 150 mg PO ONCE #1 tablet 10/06/18 Unknown Rx HYDROcodone/APAP 5-325 [[place] 1 each PO Q6HR PRN #14 tablet 10/06/18 Unknown Rx 5/325] Ibuprofen [Motrin 800 MG tab] 800 mg PO Q8HR PRN #10 tablet 10/06/18 Unknown Rx Nitrofurantoin [place]/M-[place]ryst 100 mg PO Q12HR #14 capsule 10/06/18 Unknown Rx [Macrobid CAP] Ondansetron [Zofran Odt] 4 mg PO Q8HR #10 tab.rapdis 10/06/18 Unknown Rx Active Meds: Active Medications Acetaminophen (Tylenol) 650 mg PO Q4H PRN PRN Reason: Non Cardiac Pain or Temp>100.5 Last Admin: 10/23/18 13:27 Dose: 650 mg Documented by: Dextrose (D50w (25gm) Syringe) 50 ml IV PRN PRN PRN Reason: Hypoglycemia Sodium Chloride (Nacl 0.9% 1000 Ml) 1,000 mls @ 0 mls/hr IV ONCE GRIS Stop: 10/23/18 19:06 Last Admin: 10/23/18 00:36 Dose: 125 mls/hr Documented by: Piperacillin Sod/Tazobactam Sod (Zosyn/Ns 4.5gm/100ml) 4.5 gm in 100 mls @ 200 mls/hr IV Q8HR GRIS; Protocol Last Admin: 10/23/18 14:37 Dose: 200 mls/hr Documented by: Vancomycin HCl 1,750 mg/ (Sodium Chloride) 535 mls @ 333.333 mls/hr IV Q12H GRIS Sodium Chloride (Nacl 0.9% 1000 Ml) 1,000 mls @ 100 mls/hr IV DIRECT GRIS Last Admin: 10/23/18 11:27 Dose: 150 mls/hr Documented by: Insulin Human Regular (Humulin R) 0 units SUB-Q AC GRIS; Protocol Last Admin: 10/23/18 13:27 Dose: 4 units Documented by: Insulin Human Regular (Humulin R) 0 units SUB-Q QHS GRIS; Protocol Metoclopramide HCl (Reglan) 10 mg IV Q8H PRN PRN Reason: Nausea And Vomiting Last Admin: 10/23/18 13:35 Dose: 10 mg Documented by: Morphine Sulfate (Morphine) 2 mg IV Q3H PRN PRN Reason: Pain, Moderate (4-6) Last Admin: 10/23/18 11:19 Dose: 2 mg Documented by: Ondansetron HCl (Zofran) 4 mg IV Q4H PRN PRN Reason: N/V unrelieved by Reglan Review of Systems All systems: negative (10 pt ROS performed and negative except for that listed in HPI) Exam Vital Signs Temp Pulse Resp BP Pulse Ox 102.3 F H 120 H 20 104/64 100 10/22/18 16:53 10/22/18 16:53 10/22/18 16:53 10/22/18 16:53 10/22/18 16:53 Narrative exam: Gen: AAOx3. NAD CV; s1, S2+ Resp; even and unlabored Ext: L inner thigh wound has healed well except for 1 cm area at the 1 oclock position. Small superficial abscess with minimal purulent and serous drainage. No surrounding erythema or induration. Multiple old scars from previous small wounds and tracts. Results - Labs 10/22/18 16:54 10/22/18 16:54 Abnormal lab results 10/22/18 10/22/18 10/22/18 Range/Units 16:53 16:54 16:54 MCHC 35 H (30-34) % Seg Neutrophils % 72.0 H (40.0-70.0) % PT 12.1 L (12.2-14.9) Sec. VBG pH (7.320-7.420) Sodium (137-145) mmol/L Chloride (98-107) mmol/L BUN (7-17) mg/dL Glucose (65-100) mg/dL POC Glucose 329 H (70-105) Lactic Acid (0.7-2.0) mmol/L Alkaline Phosphatase (35-129) units/L Total Protein (6.3-8.2) g/dL Albumin (3.9-5) g/dL Urine WBC (Auto) (0.0-6.0) /HPF 10/22/18 10/22/18 10/22/18 Range/Units 16:54 16:54 16:54 MCHC (30-34) % Seg Neutrophils % (40.0-70.0) % PT (12.2-14.9) Sec. VBG pH 7.531 H (7.320-7.420) Sodium 134 L (137-145) mmol/L Chloride 97.8 L (98-107) mmol/L BUN 20 H (7-17) mg/dL Glucose 343 H (65-100) mg/dL POC Glucose (70-105) Lactic Acid 2.10 H* (0.7-2.0) mmol/L Alkaline Phosphatase 130 H (35-129) units/L Total Protein 8.3 H (6.3-8.2) g/dL Albumin 3.8 L (3.9-5) g/dL Urine WBC (Auto) (0.0-6.0) /HPF 10/22/18 10/23/18 10/23/18 Range/Units 17:46 00:00 07:49 MCHC (30-34) % Seg Neutrophils % (40.0-70.0) % PT (12.2-14.9) Sec. VBG pH (7.320-7.420) Sodium (137-145) mmol/L Chloride (98-107) mmol/L BUN (7-17) mg/dL Glucose (65-100) mg/dL POC Glucose 324 H 306 H (70-105) Lactic Acid (0.7-2.0) mmol/L Alkaline Phosphatase (35-129) units/L Total Protein (6.3-8.2) g/dL Albumin (3.9-5) g/dL Urine WBC (Auto) > 182.0 H (0.0-6.0) /HPF 10/23/18 Range/Units 11:21 MCHC (30-34) % Seg Neutrophils % (40.0-70.0) % PT (12.2-14.9) Sec. VBG pH (7.320-7.420) Sodium (137-145) mmol/L Chloride (98-107) mmol/L BUN (7-17) mg/dL Glucose (65-100) mg/dL POC Glucose 319 H (70-105) Lactic Acid (0.7-2.0) mmol/L Alkaline Phosphatase (35-129) units/L Total Protein (6.3-8.2) g/dL Albumin (3.9-5) g/dL Urine WBC (Auto) (0.0-6.0) /HPF Diabetes panel 10/22/18 Range/Units 16:54 Sodium 134 L (137-145) mmol/L Potassium 4.1 (3.6-5.0) mmol/L Chloride 97.8 L (98-107) mmol/L Carbon Dioxide 22 (22-30) mmol/L BUN 20 H (7-17) mg/dL Creatinine 0.8 (0.7-1.2) mg/dL Glucose 343 H (65-100) mg/dL Calcium 9.6 (8.4-10.2) mg/dL AST 24 (5-40) units/L ALT 39 (7-56) units/L Alkaline Phosphatase 130 H (35-129) units/L Total Protein 8.3 H (6.3-8.2) g/dL Albumin 3.8 L (3.9-5) g/dL Calcium panel 10/22/18 Range/Units 16:54 Calcium 9.6 (8.4-10.2) mg/dL Albumin 3.8 L (3.9-5) g/dL Pituitary panel 10/22/18 Range/Units 16:54 Sodium 134 L (137-145) mmol/L Potassium 4.1 (3.6-5.0) mmol/L Chloride 97.8 L (98-107) mmol/L Carbon Dioxide 22 (22-30) mmol/L BUN 20 H (7-17) mg/dL Creatinine 0.8 (0.7-1.2) mg/dL Glucose 343 H (65-100) mg/dL Calcium 9.6 (8.4-10.2) mg/dL Adrenal panel 10/22/18 Range/Units 16:54 Sodium 134 L (137-145) mmol/L Potassium 4.1 (3.6-5.0) mmol/L Chloride 97.8 L (98-107) mmol/L Carbon Dioxide 22 (22-30) mmol/L BUN 20 H (7-17) mg/dL Creatinine 0.8 (0.7-1.2) mg/dL Glucose 343 H (65-100) mg/dL Calcium 9.6 (8.4-10.2) mg/dL Total Bilirubin 0.50 (0.1-1.2) mg/dL AST 24 (5-40) units/L ALT 39 (7-56) units/L Alkaline Phosphatase 130 H (35-129) units/L Total Protein 8.3 H (6.3-8.2) g/dL Albumin 3.8 L (3.9-5) g/dL - Imaging CT scan - abdomen: report reviewed, image reviewed CT scan - pelvis: report reviewed, image reviewed Assessment and Plan 38 yo F with chronic left inner thigh abscess/wound Plan: 1. Wound has closed over but still with intermittent drainage. Likely related to hidradenitis and incomplete healing of underlying wound/tract. Would recommend incision and drainage of area to allow it to drain. Consent obtained 2. commercial production editor consult 3. Pt has been noncompliant with wound care visits - will need follow up in wound care center on dc 4. patient needs better blood glucose management 5. abx per 1' 6. wound cultures will be obtained Thank you, please call with questions/concerns.
[2018-10-23] MEDS: VANCOMYCIN 1,750 MG in NACL 0.9% 500 ML 500 ML IV SCH (15:23)
--- NOTE | 2018-10-23 15:30 | Progress Note ---
Assessment and Plan Assessment and plan: Patient is a 38 yo woman with a history of HIV on HAART therapy, Asthma, depression/anxiety, dyslipidemia, obesity, hypertension, IDDM, tobacco dependency and abscess of left thigh who presented to [facility] ED initially on 10/06/18 with another left thigh boil with drainage. The area was incised. She was also found to have a UTI and yeast infection. She was sent home from [facility] ED with clindamycin/diflucan/macrobid. She returned to [facility] ED on 10/22/18 with fevers along with n/v, drainage of the left innner thigh wound. * CT abd/pelvis without contrast IMPRESSION: 1. No acute findings. 2. Continued presence of bilateral inguinal adenopathy with induration of the left inguinal region. These findings were noted on the most recent CT scan of 10/06/2018. 3. Probable mild hepatic steatosis.. * 2V CXR impression: no acute findings Sepsis of left thigh area: treat with abx Left thigh cellulitis s/p prior I-n-D; consulted GS UTI; treat with abx and follow cultures Vaginal yeast infeciton by history HIV: consult ID History Interval history: Patient was seen and examined. Follow-up on current diagnosis fevers. No overnight events reported to me. Patient denies any chest pain, shortness breath, nausea/vomiting or severe headaches. Imaging, nursing note, chart, labs and old chart reviewed. Discussed with patient. Hospitalist Physical - Physical exam Narrative exam: Gen: WDWN, NAD, Awake, Alert, Orientated HEENT: NCAT, EOMI, PERRL, OP Clear Neck: supple, no adenopathy, no thyromegaly, no JVD CVS/Heart: RRR, normal S1S2, pulses present bilaterally Chest/Lungs: CTA B, Symmetrical chest expansion, good air entry bilaterally GI/Abdomen: soft, NTND, good bowel sounds, no guarding or rebound /Bladder: no suprapubic tenderness, no CVA or paraspinal tenderness Extermity/Skin: left inner thigh without a fluid collection or mass felt. the area has small MSK: FROM x 4 Neuro: CN 2-12 grossly intact, no new focal deficits Psych: calm - Constitutional Vitals: Temp Pulse Resp BP Pulse Ox 102.8 F H 125 H 18 162/84 96 10/23/18 12:33 07/20/19 12:33 10/23/18 12:33 10/23/18 12:33 10/23/18 12:33 Results - Labs CBC & Chem 7: 10/22/18 16:54 10/22/18 16:54 Labs: Laboratory Last Values WBC 9.0 K/mm3 (4.5-11.0) 10/22/18 16:54 RBC 4.18 M/mm3 (3.65-5.03) 10/22/18 16:54 Hgb 13.5 gm/dl (10.1-14.3) 10/22/18 16:54 Hct 39.1 % (30.3-42.9) 10/22/18 16:54 MCV 93 fl (79-97) 10/22/18 16:54 MCH 32 pg (28-32) 10/22/18 16:54 MCHC 35 % (30-34) H 10/22/18 16:54 RDW 14.4 % (13.2-15.2) 10/22/18 16:54 Plt Count 170 K/mm3 (140-440) 10/22/18 16:54 Lymph % (Auto) 20.9 % (13.4-35.0) 10/22/18 16:54 [place] % (Auto) 6.2 % (0.0-7.3) 10/22/18 16:54 Eos % (Auto) 0.5 % (0.0-4.3) 10/22/18 16:54 Baso % (Auto) 0.4 % (0.0-1.8) 10/22/18 16:54 Lymph # 1.9 K/mm3 (1.2-5.4) 10/22/18 16:54 [place] # 0.6 K/mm3 (0.0-0.8) 10/22/18 16:54 Eos # 0.0 K/mm3 (0.0-0.4) 10/22/18 16:54 Baso # 0.0 K/mm3 (0.0-0.1) 10/22/18 16:54 Seg Neutrophils % 72.0 % (40.0-70.0) H 10/22/18 16:54 Seg Neutrophils # 6.5 K/mm3 (1.8-7.7) 10/22/18 16:54 PT 12.1 Sec. (12.2-14.9) L 10/22/18 16:54 INR 0.92 (0.87-1.13) 10/22/18 16:54 VBG pH 7.531 (7.320-7.420) H 10/22/18 16:54 Sodium 134 mmol/L (137-145) L 10/22/18 16:54 Potassium 4.1 mmol/L (3.6-5.0) 10/22/18 16:54 Chloride 97.8 mmol/L (98-107) L 10/22/18 16:54 Carbon Dioxide 22 mmol/L (22-30) 10/22/18 16:54 18 mmol/L 10/22/18 16:54 BUN 20 mg/dL (7-17) H 10/22/18 16:54 0.8 mg/dL (0.7-1.2) 10/22/18 16:54 Estimated GFR > 60 ml/min 10/22/18 16:54 25 % 10/22/18 16:54 Glucose 343 mg/dL (65-100) H 10/22/18 16:54 POC Glucose 319 (70-105) H 10/23/18 11:21 Lactic Acid 1.80 mmol/L (0.7-2.0) 10/22/18 19:24 Calcium 9.6 mg/dL (8.4-10.2) 10/22/18 16:54 0.50 mg/dL (0.1-1.2) 10/22/18 16:54 AST 24 units/L (5-40) 10/22/18 16:54 ALT 39 units/L (7-56) 10/22/18 16:54 130 units/L (35-129) H 10/22/18 16:54 8.3 g/dL (6.3-8.2) H 10/22/18 16:54 3.8 g/dL (3.9-5) L 10/22/18 16:54 0.8 % 10/22/18 16:54 Smiley (Yellow) 10/22/18 17:46 Cloudy (Clear) 10/22/18 17:46 5.0 (5.0-7.0) 10/22/18 17:46 Ur Specific [place] 1.023 (1.003-1.030) 10/22/18 17:46 >500 mg/dL (Negative) 10/22/18 17:46 >=500 mg/dL (Negative) 10/22/18 17:46 Neg mg/dL (Negative) 10/22/18 17:46 Mod (Negative) 10/22/18 17:46 Neg (Negative) 10/22/18 17:46 Neg (Negative) 10/22/18 17:46 < 2.0 mg/dL (<2.0) 10/22/18 17:46 Ur Leukocyte Esterase Lg (Negative) 10/22/18 17:46 > 182.0 /HPF (0.0-6.0) H 10/22/18 17:46 43.0 /HPF (0.0-6.0) 10/22/18 17:46 U Epithel Cells (Auto) 5.0 /HPF (0-13.0) 10/22/18 17:46 1+ /HPF (Negative) 10/22/18 17:46 3+ /HPF 10/22/18 17:46 1+ /HPF 10/22/18 17:46 Active Medications - Current Medications Current Medications: Generic Name Dose Route Start Last Admin Trade Name Freq PRN Reason Stop Dose Admin Acetaminophen 650 mg 10/22/18 22:18 10/23/18 13:27 Tylenol PO 650 mg Q4H PRN Administration Non Cardiac Pain or Temp>100.5 Dextrose 50 ml 10/22/18 22:21 D50w (25gm) Syringe IV PRN PRN Hypoglycemia Sodium Chloride 1,000 mls @ 0 mls/hr 10/22/18 19:05 10/23/18 00:36 Nacl 0.9% 1000 Ml IV 10/23/18 19:06 125 mls/hr ONCE GRIS Administration As Directed Piperacillin Sod/Tazobactam Sod 4.5 gm in 100 mls @ 200 mls/hr 10/22/18 23:00 10/23/18 14:37 Zosyn/Ns 4.5gm/100ml IV 200 mls/hr Q8HR GRIS Administration Protocol Vancomycin HCl 1,750 mg/ 535 mls @ 333.333 mls/hr 10/23/18 14:00 10/23/18 15:23 Sodium Chloride IV 333.333 mls/hr Q12H GRIS Administration Sodium Chloride 1,000 mls @ 100 mls/hr 10/23/18 06:00 10/23/18 11:27 Nacl 0.9% 1000 Ml IV 150 mls/hr DIRECT GRIS Administration Insulin Human Regular 0 units 10/23/18 07:30 10/23/18 13:27 Humulin R SUB-Q 4 units AC GRIS Administration Protocol Insulin Human Regular 0 units 10/23/18 22:00 Humulin R SUB-Q QHS GRIS Protocol Metoclopramide HCl 10 mg 10/23/18 12:05 10/23/18 13:35 Reglan IV 10 mg Q8H PRN Administration Nausea And Vomiting Morphine Sulfate 2 mg 10/22/18 22:20 10/23/18 15:22 Morphine IV 2 mg Q3H PRN Administration Pain, Moderate (4-6) Ondansetron HCl 4 mg 10/23/18 12:05 Zofran IV Q4H PRN N/V unrelieved by Eli
--- NOTE | 2018-10-23 15:31 | Procedure Note ---
Date of procedure: 10/23/18 Pre-op diagnosis: left inner thigh chronic abscess Post-op diagnosis: same Procedure: incision and drainage of left thigh abscess Findings: Time out performed. Area prepped with betadine. Local anesthetic 1% lidocaine injected at site. A 1 cm incision was made over the area of drainage using an 11 blade. The wound was probed and a 3 cm tract was found in the 1 oclock direction. No drainage. Cultures obtained. The wound was cleansed and hemostasis ensured. The wound was packed with 1 piece of 1/4 inch iodoform gauze. Covered with foam dressing. Patient tolerated procedure well. Nursing present throughout procedure. All sha rps disposed of appropriately. Anesthesia: local Surgeon: ANA CORTES Estimated blood loss: minimal Pathology: list (cultures) Specimen disposition: to lab Condition: stable Disposition: no change
[2018-10-24] MEDS: VANCOMYCIN 1,750 MG in NACL 0.9% 500 ML 500 ML IV SCH ×2 (01:27→16:26)
[2018-10-24] MEDS: MORPHINE IV PRN ×5 (05:02→20:47)
[2018-10-24] MEDS: ZOFRAN IV PRN ×2 (05:02→20:48)
[2018-10-24] MEDS: ZOSYN/NS 4.5GM/100ML 4.5 GM/100 ML VIAL IV SCH ×2 (05:02→15:14)
[2018-10-24 05:11] LABS: Hematocrit 32.4 % (30.3-42.9); Hemoglobin 10.9 gm/dl (10.1-14.3); Mean Corpuscular HGB Conc 34 % (30-34); Mean Corpuscular Volume 95 fl (79-97); Platelet Count 105 K/mm3 (140-440); Red Cell Distribution Width 14.8 % (13.2-15.2)
[2018-10-24 05:34] LABS: BUN/Creatinine Ratio 19; Blood Urea Nitrogen 13 mg/dL (7-17); Calcium 8.5 mg/dL (8.4-10.2); Hemolysis Index 7
[2018-10-24] MEDS: HumuLIN R SUB-Q SCH ×4 (08:57→23:59)
[2018-10-24] MEDS: REGLAN IV PRN (10:21)
[2018-10-24] MEDS ORDERED: SILVER NITRATE TP ONE (10:46)
--- NOTE | 2018-10-24 10:51 | Progress Note ---
Assessment and Plan 38 yo F with chronic left inner thigh abscess/wound S/P incision and drainage POD 1, hidradenitis suppurativa Plan: 1. silver nitrate applied today 2. bilingual student tutor consult. daily wound care 3. Pt has been noncompliant with wound care visits - will need follow up in wound care center on dc 4. patient needs better blood glucose management 5. abx per 1' 6. f/u wound cultures No further surgical intervention. Patient to follow up in wound care center upon dc. Patient has appointment tomorrow but I advised her to follow up on Thursday11/01/18 Thank you, please call with questions/concerns. Subjective Date of service: 10/24/18 Narrative: Pt seen and examined. No acute complaints. Objective Vital Signs - 12hr 10/23/18 10/23/18 10/24/18 23:04 23:25 05:02 Temperature 102.0 F H Pulse Rate 119 H Respiratory 20 19 20 Rate Blood Pressure 144/70 O2 Sat by Pulse 97 Oximetry 10/24/18 10/24/18 10/24/18 05:10 06:51 08:17 Temperature 97.4 F L 99.7 F H Pulse Rate 112 H 101 H Respiratory 20 18 16 Rate Blood Pressure 197/92 119/60 O2 Sat by Pulse 100 100 Oximetry - General physical appearance Narrative Exam: Gen: AAOx3. NAD CV: s1, S2+ resp; even and unlabored Ext: L thigh wound - no packing or dressing present. Wound without drainage, erythema, induration. Silver nitrate applied to wound and tract. Covered with foam dressing. Small area of induration along inner thigh. Small area of fluctuance in upper thigh crease with adjacent pore - a mixture of blood and pus drained with external pressure. - Labs 10/24/18 04:31 10/24/18 04:31 Diabetes panel 10/24/18 Range/Units 04:31 Sodium 135 L (137-145) mmol/L Potassium 3.9 (3.6-5.0) mmol/L Chloride 102.4 (98-107) mmol/L Carbon Dioxide 21 L (22-30) mmol/L BUN 13 (7-17) mg/dL Creatinine 0.7 (0.7-1.2) mg/dL Glucose 295 H (65-100) mg/dL Calcium 8.5 (8.4-10.2) mg/dL Calcium panel 10/24/18 Range/Units 04:31 Calcium 8.5 (8.4-10.2) mg/dL Pituitary panel 10/24/18 Range/Units 04:31 Sodium 135 L (137-145) mmol/L Potassium 3.9 (3.6-5.0) mmol/L Chloride 102.4 (98-107) mmol/L Carbon Dioxide 21 L (22-30) mmol/L BUN 13 (7-17) mg/dL Creatinine 0.7 (0.7-1.2) mg/dL Glucose 295 H (65-100) mg/dL Calcium 8.5 (8.4-10.2) mg/dL Adrenal panel 10/24/18 Range/Units 04:31 Sodium 135 L (137-145) mmol/L Potassium 3.9 (3.6-5.0) mmol/L Chloride 102.4 (98-107) mmol/L Carbon Dioxide 21 L (22-30) mmol/L BUN 13 (7-17) mg/dL Creatinine 0.7 (0.7-1.2) mg/dL Glucose 295 H (65-100) mg/dL Calcium 8.5 (8.4-10.2) mg/dL
--- NOTE | 2018-10-24 13:16 | Progress Note ---
Assessment and Plan Assessment and plan: Patient is a 38 yo woman with a history of HIV on HAART therapy, Asthma, depression/anxiety, dyslipidemia, obesity, hypertension, IDDM, tobacco dependency and abscess of left thigh who presented to [facility] ED initially on 10/06/18 with another left thigh boil with drainage. The area was incised. She was also found to have a UTI and yeast infection. She was sent home from [facility] ED with clindamycin/diflucan/macrobid. She returned to [facility] ED on 10/22/18 with fevers along with n/v, drainage of the left innner thigh wound. * CT abd/pelvis without contrast IMPRESSION: 1. No acute findings. 2. Continued presence of bilateral inguinal adenopathy with induration of the left inguinal region. These findings were noted on the most recent CT scan of 10/06/2018. 3. Probable mild hepatic steatosis.. * 2V CXR impression: no acute findings Sepsis of left thigh area: treat with abx Left thigh cellulitis s/p I-n-D; consulted GS, input noted UTI; treat with abx and follow cultures Vaginal yeast infection by history HIV: consult ID History Interval history: Patient was seen and examined. Follow-up on current diagnosis fevers. No overnight events reported to me. Patient denies any chest pain, shortness breath, nausea/vomiting or severe headaches. Imaging, nursing note, chart, labs and old chart reviewed. Discussed with patient. Hospitalist Physical - Physical exam Narrative exam: Gen: WDWN, NAD, Awake, Alert, Orientated HEENT: NCAT, EOMI, PERRL, OP Clear Neck: supple, no adenopathy, no thyromegaly, no JVD CVS/Heart: RRR, normal S1S2, pulses present bilaterally Chest/Lungs: CTA B, Symmetrical chest expansion, good air entry bilaterally GI/Abdomen: soft, NTND, good bowel sounds, no guarding or rebound /Bladder: no suprapubic tenderness, no CVA or paraspinal tenderness Extermity/Skin: left inner thigh without a fluid collection or mass felt. the area has small MSK: FROM x 4 Neuro: CN 2-12 grossly intact, no new focal deficits Psych: calm - Constitutional Vitals: Temp Pulse Resp BP Pulse Ox 100.0 F H 105 H 18 134/67 93 10/24/18 11:53 07/21/19 11:53 10/24/18 11:53 10/24/18 11:53 10/24/18 11:53 Results - Labs CBC & Chem 7: 10/24/18 04:31 10/24/18 04:31 Labs: Laboratory Last Values WBC 5.1 K/mm3 (4.5-11.0) 10/24/18 04:31 RBC 3.40 M/mm3 (3.65-5.03) L 10/24/18 04:31 Hgb 10.9 gm/dl (10.1-14.3) 10/24/18 04:31 Hct 32.4 % (30.3-42.9) D 10/24/18 04:31 MCV 95 fl (79-97) 10/24/18 04:31 MCH 32 pg (28-32) 10/24/18 04:31 MCHC 34 % (30-34) 10/24/18 04:31 RDW 14.8 % (13.2-15.2) 10/24/18 04:31 Plt Count 105 K/mm3 (140-440) L 10/24/18 04:31 Lymph % (Auto) 20.9 % (13.4-35.0) 10/22/18 16:54 [place] % (Auto) 6.2 % (0.0-7.3) 10/22/18 16:54 Eos % (Auto) 0.5 % (0.0-4.3) 10/22/18 16:54 Baso % (Auto) 0.4 % (0.0-1.8) 10/22/18 16:54 Lymph # 1.9 K/mm3 (1.2-5.4) 10/22/18 16:54 [place] # 0.6 K/mm3 (0.0-0.8) 10/22/18 16:54 Eos # 0.0 K/mm3 (0.0-0.4) 10/22/18 16:54 Baso # 0.0 K/mm3 (0.0-0.1) 10/22/18 16:54 Seg Neutrophils % 72.0 % (40.0-70.0) H 10/22/18 16:54 Seg Neutrophils # 6.5 K/mm3 (1.8-7.7) 10/22/18 16:54 PT 12.1 Sec. (12.2-14.9) L 10/22/18 16:54 INR 0.92 (0.87-1.13) 10/22/18 16:54 VBG pH 7.531 (7.320-7.420) H 10/22/18 16:54 Sodium 135 mmol/L (137-145) L 10/24/18 04:31 Potassium 3.9 mmol/L (3.6-5.0) 10/24/18 04:31 Chloride 102.4 mmol/L (98-107) 10/24/18 04:31 Carbon Dioxide 21 mmol/L (22-30) L 10/24/18 04:31 16 mmol/L 10/24/18 04:31 BUN 13 mg/dL (7-17) 10/24/18 04:31 0.7 mg/dL (0.7-1.2) 10/24/18 04:31 Estimated GFR > 60 ml/min 10/24/18 04:31 19 % 10/24/18 04:31 Glucose 295 mg/dL (65-100) H 10/24/18 04:31 POC Glucose 309 (70-105) H 10/24/18 11:46 Lactic Acid 1.80 mmol/L (0.7-2.0) 10/22/18 19:24 Calcium 8.5 mg/dL (8.4-10.2) 10/24/18 04:31 0.50 mg/dL (0.1-1.2) 10/22/18 16:54 AST 24 units/L (5-40) 10/22/18 16:54 ALT 39 units/L (7-56) 10/22/18 16:54 130 units/L (35-129) H 10/22/18 16:54 8.3 g/dL (6.3-8.2) H 10/22/18 16:54 3.8 g/dL (3.9-5) L 10/22/18 16:54 0.8 % 10/22/18 16:54 Smiley (Yellow) 10/22/18 17:46 Cloudy (Clear) 10/22/18 17:46 5.0 (5.0-7.0) 10/22/18 17:46 Ur Specific [place] 1.023 (1.003-1.030) 10/22/18 17:46 >500 mg/dL (Negative) 10/22/18 17:46 >=500 mg/dL (Negative) 10/22/18 17:46 Neg mg/dL (Negative) 10/22/18 17:46 Mod (Negative) 10/22/18 17:46 Neg (Negative) 10/22/18 17:46 Neg (Negative) 10/22/18 17:46 < 2.0 mg/dL (<2.0) 10/22/18 17:46 Ur Leukocyte Esterase Lg (Negative) 10/22/18 17:46 > 182.0 /HPF (0.0-6.0) H 10/22/18 17:46 43.0 /HPF (0.0-6.0) 10/22/18 17:46 U Epithel Cells (Auto) 5.0 /HPF (0-13.0) 10/22/18 17:46 1+ /HPF (Negative) 10/22/18 17:46 3+ /HPF 10/22/18 17:46 1+ /HPF 10/22/18 17:46 Active Medications - Current Medications Current Medications: Generic Name Dose Route Start Last Admin Trade Name Freq PRN Reason Stop Dose Admin Acetaminophen 650 mg 10/22/18 22:18 10/23/18 23:37 Tylenol PO 650 mg Q4H PRN Administration Non Cardiac Pain or Temp>100.5 Dextrose 50 ml 10/22/18 22:21 D50w (25gm) Syringe IV PRN PRN Hypoglycemia Piperacillin Sod/Tazobactam Sod 4.5 gm in 100 mls @ 200 mls/hr 10/22/18 23:00 10/24/18 05:02 Zosyn/Ns 4.5gm/100ml IV 200 mls/hr Q8HR GRIS Administration Protocol Vancomycin HCl 1,750 mg/ 535 mls @ 333.333 mls/hr 10/23/18 14:00 10/24/18 01:27 Sodium Chloride IV 333.333 mls/hr Q12H GRIS Administration Sodium Chloride 1,000 mls @ 100 mls/hr 10/23/18 06:00 10/23/18 23:46 Nacl 0.9% 1000 Ml IV 150 mls/hr DIRECT GRIS Administration Insulin Human Regular 0 units 10/23/18 07:30 10/24/18 13:03 Humulin R SUB-Q 4 units AC GRIS Administration Protocol Insulin Human Regular 0 units 10/23/18 22:00 10/23/18 22:36 Humulin R SUB-Q 4 units QHS GRIS Administration Protocol Metoclopramide HCl 10 mg 10/23/18 12:05 10/24/18 10:21 Reglan IV 10 mg Q8H PRN Administration Nausea And Vomiting Morphine Sulfate 2 mg 10/22/18 22:20 10/24/18 10:21 Morphine IV 2 mg Q3H PRN Administration Pain, Moderate (4-6) Ondansetron HCl 4 mg 10/23/18 12:05 10/24/18 05:02 Zofran IV 4 mg Q4H PRN Administration N/V unrelieved by Eli
--- NOTE | 2018-10-24 14:28 | Consultation ---
History of Present Illness - Reason for Consult Consult date: 10/24/18 sepsis, UTI, left inner thigh abscess Requesting physician: GUMARO WEATHERS - History of Present Illness 38 y/o female with history of HIV infection on triumeq, sees Dr Pedro Ponce (last VL<20) currently not taking her HIV meds for 4 weeks, morbid obesity, HTN, Nicotine Dependence, DM and recurrent skin boils/gen groin hidradenitis; known to ID service, most recently on 06/01/2018 due to sepsis from left upper thigh abscess. CT leg showed inflammatory stranding in the subcutaneous fat involving the proximal thigh medially consistent with cellulitis S/p OR I+D on 06/02/2018 findings - Indurated and inflamed skin and subcutaneous tissue. Edema below the subcutaneous tissue. Inflammatory fluid, no pus. CRP 27.90. She was continue in house alternative to Triumeq - abacavir+lamividine+dolutegravir or raltegravir. She was discharged home before ID saw her. Readmitted on 10/22/2018 due to a week history of worsening left sided groin drainage and tenderness associated with a fever at 103 and elevated glucose. She has missed wound care and HIV clinic apts. Wound culture from 06/02/2018 and 06/21/2018 both grew MSSA and group B Strep. In the ED, temp 102.3. HR 120. R 20. BP 104/64. WBC 9. Creat 0.8. Glu 343. Lactate 2.1. Blood cultures 10/22/2018 no growth so far. Urine cultures 10/22/[address] showed gen inguinal LNs with induration in left inguinal region. CXR neg. Review of Systems: General: + fever, + chills, no malaise Cutaneous: no rash, pruritus Head: no headaches or injury Eyes: no changes in vision, eye pain, double vision Ears: no ear pain, ear discharge, ringing or hearing loss Nose: no nose bleeding, stuffiness Mouth & throat: no bleeding gums, no horseness, no dental problems, or swollen glands Neck: no pain, node enlargement/lumps, tyroid enlargement or tenderness Respiratory: no cough, wheezing, sputum, hemoptysis, pleuritic chest pain Cardiovascular: no chest pain, leg edema, cyanosis, LOPEZ, orthopnea Musculoskeletal: left groin drainage Gastrointestinal: no nausea, no vomiting, no hematemesis, diarrhea, constipation, melena, bright red blood in stools, fecal incontinence, jaundice Genitourinary/Reproductive: no frequent urination, dysuria, hematuria, incontinence Neurogical: no seizures, no headaches, no weakness, no paresthesias, no loss of speech or vision; no memory loss, no vertigo, no tremors, no numbness Psychiatric: stable mood; no excessive anxiety, sadness or moodiness Past History Past Medical History: diabetes, other (hidradenitis) Past Surgical History: Other (incision and drainage of abscesses, debridement of wounds of right and left thigh) Social history: no significant social history Family history: no significant family history Medications and Allergies Allergies Allergy/AdvReac Type Severity Reaction Status Date / Time iodine Allergy Swelling Verified 10/22/18 17:47 sulfamethoxazole Allergy Rash Verified 10/22/18 17:47 [From Bactrim] trimethoprim [From Bactrim] Allergy Rash Verified 10/22/18 17:47 metformin AdvReac Nausea Verified 10/22/18 17:47 seafood Allergy Rash Uncoded 02/16/18 13:38 Home Medications Medication Instructions Recorded Confirmed Last Taken Type Atorvastatin [Lipitor] 40 mg PO HS 04/13/13 06/02/18 09/08/17 History Gabapentin [Gralise] 800 mg PO TID 04/13/13 06/02/18 09/08/17 History Abacavir/Dolutegravir/Lamivudi 1 each PO DAILY 07/10/15 06/02/18 09/08/17 Histor y [Triumeq 600-50-300 mg Tablet] Ibuprofen [Motrin 800 MG tab] 800 mg PO Q8HR PRN #20 tablet 05/21/17 06/02/18 Unknown Rx ARIPiprazole [Abilify TAB] 15 mg PO QDAY 06/02/18 06/02/18 Unknown History Lispro Insulin [HumaLOG] 80 units SQ QMONTH 06/02/18 06/02/18 Unknown History [place] Carbonate [Eskalith] 300 mg PO BID 06/02/18 06/02/18 Unknown History Mirtazapine 45 mg PO QHS 06/02/18 06/02/18 Unknown History buPROPion XL [Wellbutrin XL] 150 mg PO QDAY 06/02/18 06/02/18 Unknown History cefUROXime [Ceftin] 500 mg PO Q12H 10 Days tablet 06/05/18 Unknown Rx oxyCODONE /ACETAMINOPHEN [Percocet 1 tab PO Q6HR PRN #20 tablet 06/05/18 Unknown Rx 5/325] Clindamycin [Clindamycin CAP] 300 mg PO Q8H #21 cap 10/06/18 Unknown Rx Fluconazole [Diflucan TAB] 150 mg PO ONCE #1 tablet 10/06/18 Unknown Rx HYDROcodone/APAP 5-325 [[place] 1 each PO Q6HR PRN #14 tablet 10/06/18 Unknown Rx 5/325] Ibuprofen [Motrin 800 MG tab] 800 mg PO Q8HR PRN #10 tablet 10/06/18 Unknown Rx Nitrofurantoin Coal/M-Cryst 100 mg PO Q12HR #14 capsule 10/06/18 Unknown Rx [Macrobid CAP] Ondansetron [Zofran Odt] 4 mg PO Q8HR #10 tab.rapdis 10/06/18 Unknown Rx Active Meds: Active Medications Acetaminophen (Tylenol) 650 mg PO Q4H PRN PRN Reason: Non Cardiac Pain or Temp>100.5 Last Admin: 10/23/18 23:37 Dose: 650 mg Documented by: Dextrose (D50w (25gm) Syringe) 50 ml IV PRN PRN PRN Reason: Hypoglycemia Diphenhydramine HCl (Benadryl) 25 mg IV Q6H PRN PRN Reason: Itching Piperacillin Sod/Tazobactam Sod (Zosyn/Ns 4.5gm/100ml) 4.5 gm in 100 mls @ 200 mls/hr IV Q8HR GRIS; Protocol Last Admin: 10/24/18 05:02 Dose: 200 mls/hr Documented by: Vancomycin HCl 1,750 mg/ (Sodium Chloride) 535 mls @ 333.333 mls/hr IV Q12H GRIS Last Admin: 10/24/18 01:27 Dose: 333.333 mls/hr Documented by: Sodium Chloride (Nacl 0.9% 1000 Ml) 1,000 mls @ 100 mls/hr IV DIRECT GRIS Last Admin: 10/23/18 23:46 Dose: 150 mls/hr Documented by: Insulin Human Regular (Humulin R) 0 units SUB-Q AC GRIS; Protocol Last Admin: 10/24/18 13:03 Dose: 4 units Documented by: Insulin Human Regular (Humulin R) 0 units SUB-Q QHS [facility]; Protocol Last Admin: 10/23/18 22:36 Dose: 4 units Documented by: Metoclopramide HCl (Reglan) 10 mg IV Q8H PRN PRN Reason: Nausea And Vomiting Last Admin: 10/24/18 10:21 Dose: 10 mg Documented by: Morphine Sulfate (Morphine) 2 mg IV Q3H PRN PRN Reason: Pain, Moderate (4-6) Last Admin: 10/24/18 13:16 Dose: 2 mg Documented by: Ondansetron HCl (Zofran) 4 mg IV Q4H PRN PRN Reason: N/V unrelieved by Reglan Last Admin: 10/24/18 05:02 Dose: 4 mg Documented by: Physical Examination - Physical Exam Narrative exam: General appearance: Alert in NAD Eyes: anicteric sclerae, moist conjunctivae; no lid-lag; PERRLA HENT: Atraumatic; oropharynx clear with moist mucous membranes and no mucosal ulcerations/no oral thrush; normal hard and soft palate. Normal external ears. Neck: Trachea midline; supple, no thyromegaly or lymphadenopathy Lungs: CTA, with normal respiratory effort and no intercostal retractions CV: RRR no murmur Abdomen: Soft, non-tender; no masses or hepatosplenomegaly Extremities: gen groin and perineal multiple sinus tracts left groin cysts x 3 draining purulence. Skin: Normal temperature, turgor and texture; no rash, ulcers or subcutaneous nodules Psych: Appropriate affect, alert and oriented to person, place and time. Neuro: alert and oriented x 3. Moving all extermities - Constitutional Vitals: Vital Signs Temp Pulse Resp BP Pulse Ox 100.0 F H 105 H 18 134/67 93 10/24/18 11:53 10/24/18 11:53 10/24/18 11:53 10/24/18 11:53 10/24/18 11:53 Temperature -Last 24 Hours Temperature 100.0 F Temperature 99.7 F Temperature 97.4 F Temperature 102.0 F Temperature 100.4 F Results - Labs CBC & Chem 7: 10/24/18 04:31 10/24/18 04:31 Labs: Abnormal lab results 10/23/18 10/23/18 10/24/18 Range/Units 16:57 21:26 04:31 RBC 3.40 L (3.65-5.03) M/mm3 Plt Count 105 L (140-440) K/mm3 Sodium (137-145) mmol/L Carbon Dioxide (22-30) mmol/L Glucose (65-100) mg/dL POC Glucose 296 H 301 H (70-105) 10/24/18 10/24/18 10/24/18 Range/Units 04:31 07:29 11:46 RBC (3.65-5.03) M/mm3 Plt Count (140-440) K/mm3 Sodium 135 L (137-145) mmol/L Carbon Dioxide 21 L (22-30) mmol/L Glucose 295 H (65-100) mg/dL POC Glucose 289 H 309 H (70-105) Assessment and Plan Cultures: Urine cultures 10/22/2018 Proteus. Blood cultures 10/22/2018 no growth so far Assessment: 38 y/o female with history of HIV infection on triumeq, sees Dr Pedro Ponce (last VL<20) currently not taking her HIV meds for 4 weeks, morbid obesity, HTN, Nicotine Dependence, DM and recurrent skin boils/gen groin hidradenitis; known to ID service; readmitted on 10/22/2018 due to a week history of worsening left sided groin drainage and tenderness associated with a fever at 103 and elevated glucose: 1) Severe Sepsis: Present on admission, manifested by fever, tachycardia, increased lactate. Etiology most likely left groin/thigh abscesses on top of hidradenitis +/- UTI. 2) Left groin/thigh abscesses on top of hidradenitis: Wound culture from 06/02/2018 and 06/21/2018 both grew MSSA and group B Strep. She has missed wound care and HIV clinic apts. CT showed gen inguinal LNs with induration in left inguinal region. 3) HIV: non compliance with meds or apt. 4) DM: uncontrolled 5) UTI: due to Proteus. Urine cultures 10/22/2018 Proteus. Recommendations: follow-up blood cultures start cefazolin 3 gm IV q 8 hours - should cover Strep, MSSA and Proteus stop zosyn and vancomycin send CD4/VL/genotype keep of ART for now - she has been off for 4 weeks, needs genotype and commitment to re-start eventually will require plastic surgery referral for hidradenitis surgery Will follow. Roxane Phelan MD Infectious Diseases Learning Support Aide [facility] M [phone] O [phone]
[2018-10-24] MEDS: BENADRYL IV PRN ×2 (15:15→20:48)
[2018-10-24] MEDS: NACL 0.9% 1000 ML 1,000 ML IV SCH (15:21)
[2018-10-24] MEDS: ceFAZolin 2 GM in NACL 0.9% 100 ML IV SCH (18:06)
[2018-10-25] MEDS: ceFAZolin 2 GM in NACL 0.9% 100 ML IV SCH ×2 (01:50→10:39)
[2018-10-25] MEDS: NACL 0.9% 1000 ML 1,000 ML IV SCH ×2 (01:51→18:26)
[2018-10-25] MEDS: REGLAN IV PRN ×2 (02:51→15:41)
[2018-10-25] MEDS: MORPHINE IV PRN ×6 (02:51→21:38)
[2018-10-25] MEDS: BENADRYL IV PRN ×4 (02:57→21:38)
[2018-10-25] MEDS: HumuLIN R SUB-Q SCH ×2 (07:30→10:30)
[2018-10-25 08:08] LABS: Hematocrit 29.6 % (30.3-42.9); Hemoglobin 10.2 gm/dl (10.1-14.3); Mean Corpuscular HGB Conc 35 % (30-34); Mean Corpuscular Volume 93 fl (79-97); Red Blood Count 3.18 M/mm3 (3.65-5.03); Red Cell Distribution Width 14.3 % (13.2-15.2)
[2018-10-25 08:17] LABS: Platelet Count 92 K/mm3 (140-440)
[2018-10-25 08:25] LABS: BUN/Creatinine Ratio 14; Blood Urea Nitrogen 10 mg/dL (7-17); Calcium 8.8 mg/dL (8.4-10.2); Hemolysis Index 4
--- NOTE | 2018-10-25 09:48 | Progress Note ---
Assessment and Plan Cultures: Urine cultures 10/22/2018 Proteus, E. Coli Blood cultures 10/22/2018 no growth so far Assessment: 38 y/o female with history of HIV infection on triumeq, sees Dr Pedro Ponce (last VL<20) currently not taking her HIV meds for 4 weeks, morbid obesity, HTN, Nicotine Dependence, DM and recurrent skin boils/gen groin hidradenitis; known to ID service; readmitted on 10/22/2018 due to a week history of worsening left sided groin drainage and tenderness associated with a fever at 103 and elevated glucose: 1) Severe Sepsis: Improved. Low grade fever, still tachcardia. Present on admission, manifested by fever, tachycardia, increased lactate. Etiology most likely left groin/thigh abscesses on top of hidradenitis +/- UTI. 2) Left groin/thigh abscesses on top of hidradenitis: Wound culture from 06/02/2018 and 06/21/2018 both grew MSSA and group B Strep. She has missed wound care and HIV clinic apts. CT showed gen inguinal LNs with induration in left inguinal region. 3) HIV: non compliance with meds or apt. 4) DM: uncontrolled 5) UTI: Urine cultures 10/22/2018 Proteus, E.Coli Recommendations: follow-up blood cultures continue cefazolin 3 gm IV q 8 hours - should cover Strep, MSSA, Proteus and E.coli follow-up CD4/VL/genotype keep off ART for now - she has been off for 4 weeks, needs genotype and commitment to re-start eventually will require plastic surgery referral for hidradenitis surgery At discharge will do Ceftin 500mg Po BID total 14 days ending 11-05-18 and Keflex 500 Po BID for 2-3 months for suppression Will follow -up with wound care at discharge Has a confirmed appointment with Dr. Ponce next month Yina Campbell NP [facility] M: [phone] O:[phone] Subjective Date of service: 10/25/18 Interval history: Patient seen and examined. Report continued left thigh discomfort. + Low grade fever. Objective - Exam Narrative Exam: General appearance: Awake. Alert. No acute distress. Eyes: anicteric sclerae, moist conjunctivae; no lid-lag; PERRLA HENT: Atraumatic; oropharynx clear with moist mucous membranes and no mucosal ulcerations/no oral thrush; normal hard and soft palate. Normal external ears. Neck: Trachea midline; supple, no thyromegaly or lymphadenopathy Lungs: CTA, with normal respiratory effort and no intercostal retractions CV: RRR no murmur Abdomen: Soft, non-tender; no masses or hepatosplenomegaly Extremities: gen groin and perineal multiple sinus tracts left groin cysts x 3. Wrapped in dressing. Skin: Normal temperature, turgor and texture; no rash, ulcers or subcutaneous nodules Psych: Appropriate affect, alert and oriented to person, place and time. Neuro: alert and oriented x 3. Moving all extremities - Constitutional Vitals: Vital Signs Temp Pulse Resp BP Pulse Ox 99.0 F 102 H 18 156/86 96 10/25/18 05:05 10/25/18 05:05 10/25/18 05:05 10/25/18 05:05 10/25/18 05:05 Temperature -Last 24 Hours Temperature 99.0 F Temperature 99.3 F Temperature 100.1 F Temperature 100.0 F - Labs CBC & Chem 7: 10/25/18 07:49 10/25/18 07:49 Labs: Abnormal lab results 10/24/18 10/24/18 10/24/18 Range/Units 11:46 16:05 21:36 RBC (3.65-5.03) M/mm3 Hct (30.3-42.9) % MCHC (30-34) % Plt Count (140-440) K/mm3 Sodium (137-145) mmol/L Glucose (65-100) mg/dL POC Glucose 309 H 293 H 306 H (70-105) 10/25/18 10/25/18 10/25/18 Range/Units 07:49 07:49 07:52 RBC 3.18 L (3.65-5.03) M/mm3 Hct 29.6 L (30.3-42.9) % MCHC 35 H (30-34) % Plt Count 92 L (140-440) K/mm3 Sodium 136 L (137-145) mmol/L Glucose 262 H (65-100) mg/dL POC Glucose 243 H (70-105)
--- NOTE | 2018-10-25 15:13 | Progress Note ---
Assessment and Plan Assessment and plan: Patient is a 38 yo woman with a history of HIV on HAART therapy, Asthma, depression/anxiety, dyslipidemia, obesity, hypertension, IDDM, tobacco dependency and abscess of left thigh who presented to [facility] ED initially on 10/06/18 with another left thigh boil with drainage. The area was incised. She was also found to have a UTI and yeast infection. She was sent home from [facility] ED with clindamycin/diflucan/macrobid. She returned to [facility] ED on 10/22/18 with fevers along with n/v, drainage of the left innner thigh wound. * CT abd/pelvis without contrast IMPRESSION: 1. No acute findings. 2. Continued presence of bilateral inguinal adenopathy with induration of the left inguinal region. These findings were noted on the most recent CT scan of 10/06/2018. 3. Probable mild hepatic steatosis.. * 2V CXR impression: no acute findings Sepsis of left thigh area: treat with abx Left thigh cellulitis s/p I-n-D; consulted GS, input noted UTI; treat with abx and follow cultures Vaginal yeast infection by history HIV: consult ID Disposition: continue inpatient care, d/c once afebrile >24 hours History Interval history: Patient was seen and examined. Follow-up on current diagnosis fevers. No overnight events reported to me. Patient denies any chest pain, shortness breath, nausea/vomiting or severe headaches. Imaging, nursing note, chart, labs and old chart reviewed. Discussed with patient. Hospitalist Physical - Physical exam Narrative exam: Gen: WDWN, NAD, Awake, Alert, Orientated HEENT: NCAT, EOMI, PERRL, OP Clear Neck: supple, no adenopathy, no thyromegaly, no JVD CVS/Heart: RRR, normal S1S2, pulses present bilaterally Chest/Lungs: CTA B, Symmetrical chest expansion, good air entry bilaterally GI/Abdomen: soft, NTND, good bowel sounds, no guarding or rebound /Bladder: no suprapubic tenderness, no CVA or paraspinal tenderness Extermity/Skin: left inner thigh without a fluid collection or mass felt. the area has small MSK: FROM x 4 Neuro: CN 2-12 grossly intact, no new focal deficits Psych: calm - Constitutional Vitals: Temp Pulse Resp BP Pulse Ox 99.0 F 102 H 18 156/86 96 10/25/18 05:05 10/25/18 05:05 10/25/18 05:05 10/25/18 05:05 10/25/18 05:05 Results - Labs CBC & Chem 7: 10/25/18 07:49 10/25/18 07:49 Labs: Laboratory Last Values WBC 4.5 K/mm3 (4.5-11.0) 10/25/18 07:49 RBC 3.18 M/mm3 (3.65-5.03) L 10/25/18 07:49 Hgb 10.2 gm/dl (10.1-14.3) 10/25/18 07:49 Hct 29.6 % (30.3-42.9) L 10/25/18 07:49 MCV 93 fl (79-97) 10/25/18 07:49 MCH 32 pg (28-32) 10/25/18 07:49 MCHC 35 % (30-34) H 10/25/18 07:49 RDW 14.3 % (13.2-15.2) 10/25/18 07:49 Plt Count 92 K/mm3 (140-440) L 10/25/18 07:49 Lymph % (Auto) 20.9 % (13.4-35.0) 10/22/18 16:54 [place] % (Auto) 6.2 % (0.0-7.3) 10/22/18 16:54 Eos % (Auto) 0.5 % (0.0-4.3) 10/22/18 16:54 Baso % (Auto) 0.4 % (0.0-1.8) 10/22/18 16:54 Lymph # 1.9 K/mm3 (1.2-5.4) 10/22/18 16:54 [place] # 0.6 K/mm3 (0.0-0.8) 10/22/18 16:54 Eos # 0.0 K/mm3 (0.0-0.4) 10/22/18 16:54 Baso # 0.0 K/mm3 (0.0-0.1) 10/22/18 16:54 Seg Neutrophils % 72.0 % (40.0-70.0) H 10/22/18 16:54 Seg Neutrophils # 6.5 K/mm3 (1.8-7.7) 10/22/18 16:54 PT 12.1 Sec. (12.2-14.9) L 10/22/18 16:54 INR 0.92 (0.87-1.13) 10/22/18 16:54 VBG pH 7.531 (7.320-7.420) H 10/22/18 16:54 Sodium 136 mmol/L (137-145) L 10/25/18 07:49 Potassium 3.7 mmol/L (3.6-5.0) 10/25/18 07:49 Chloride 102.9 mmol/L (98-107) 10/25/18 07:49 Carbon Dioxide 23 mmol/L (22-30) 10/25/18 07:49 14 mmol/L 10/25/18 07:49 BUN 10 mg/dL (7-17) 10/25/18 07:49 0.7 mg/dL (0.7-1.2) 10/25/18 07:49 Estimated GFR > 60 ml/min 10/25/18 07:49 14 % 10/25/18 07:49 Glucose 262 mg/dL (65-100) H 10/25/18 07:49 POC Glucose 366 (70-105) H 10/25/18 12:06 Lactic Acid 1.80 mmol/L (0.7-2.0) 10/22/18 19:24 Calcium 8.8 mg/dL (8.4-10.2) 10/25/18 07:49 0.50 mg/dL (0.1-1.2) 10/22/18 16:54 AST 24 units/L (5-40) 10/22/18 16:54 ALT 39 units/L (7-56) 10/22/18 16:54 130 units/L (35-129) H 10/22/18 16:54 8.3 g/dL (6.3-8.2) H 10/22/18 16:54 3.8 g/dL (3.9-5) L 10/22/18 16:54 0.8 % 10/22/18 16:54 Smiley (Yellow) 10/22/18 17:46 Cloudy (Clear) 10/22/18 17:46 5.0 (5.0-7.0) 10/22/18 17:46 Ur Specific [place] 1.023 (1.003-1.030) 10/22/18 17:46 >500 mg/dL (Negative) 10/22/18 17:46 >=500 mg/dL (Negative) 10/22/18 17:46 Neg mg/dL (Negative) 10/22/18 17:46 Mod (Negative) 10/22/18 17:46 Neg (Negative) 10/22/18 17:46 Neg (Negative) 10/22/18 17:46 < 2.0 mg/dL (<2.0) 10/22/18 17:46 Ur Leukocyte Esterase Lg (Negative) 10/22/18 17:46 > 182.0 /HPF (0.0-6.0) H 10/22/18 17:46 43.0 /HPF (0.0-6.0) 10/22/18 17:46 U Epithel Cells (Auto) 5.0 /HPF (0-13.0) 10/22/18 17:46 1+ /HPF (Negative) 10/22/18 17:46 3+ /HPF 10/22/18 17:46 1+ /HPF 10/22/18 17:46 Active Medications - Current Medications Current Medications: Generic Name Dose Route Start Last Admin Trade Name Freq PRN Reason Stop Dose Admin Acetaminophen 650 mg 10/22/18 22:18 10/23/18 23:37 Tylenol PO 650 mg Q4H PRN Administration Non Cardiac Pain or Temp>100.5 Dextrose 50 ml 10/22/18 22:21 D50w (25gm) Syringe IV PRN PRN Hypoglycemia Diphenhydramine HCl 25 mg 10/24/18 13:51 10/25/18 09:05 Benadryl IV 25 mg Q6H PRN Administration Itching Sodium Chloride 1,000 mls @ 100 mls/hr 10/23/18 06:00 10/25/18 01:51 Nacl 0.9% 1000 Ml IV 150 mls/hr DIRECT GRIS Administration Cefazolin Sodium 3 gm/ Sodium 100 mls @ 200 mls/hr 10/25/18 15:00 Chloride IV Q8HR GRIS Insulin Human Regular 0 units 10/23/18 07:30 10/25/18 10:30 Humulin R SUB-Q 5 units AC GRIS Administration Protocol Insulin Human Regular 0 units 10/23/18 22:00 10/24/18 23:59 Humulin R SUB-Q 4 units QHS GRIS Administration Protocol Metoclopramide HCl 10 mg 10/23/18 12:05 10/25/18 02:51 Reglan IV 10 mg Q8H PRN Administration Nausea And Vomiting Morphine Sulfate 2 mg 10/22/18 22:20 10/25/18 12:26 Morphine IV 2 mg Q3H PRN Administration Pain, Moderate (4-6) Ondansetron HCl 4 mg 10/23/18 12:05 10/24/18 20:48 Zofran IV 4 mg Q4H PRN Administration N/V unrelieved by Eli
[2018-10-25] MEDS ORDERED: D50W (25GM) Syringe IV PRN (15:16)
[2018-10-25] MEDS: ceFAZolin 3 GM in NACL 0.9% 100 ML IV SCH ×2 (15:25→21:36)
[2018-10-25] MEDS: HumaLOG SUB-Q SCH ×2 (18:12→22:35)
[2018-10-25] MEDS ORDERED: GABAPENTIN 800 MG PO SCH (20:00)
[2018-10-25] MEDS: NEURONTIN PO SCH (21:37)
[2018-10-25] MEDS: ESKALITH PO SCH (21:40)
[2018-10-25] MEDS: LANTUS SUB-Q SCH (22:35)
[2018-10-26] MEDS: MORPHINE IV PRN ×5 (00:20→18:49)
[2018-10-26] MEDS: BENADRYL IV PRN ×3 (04:04→17:02)
[2018-10-26 05:00] LABS: Hematocrit 30.4 % (30.3-42.9); Hemoglobin 10.3 gm/dl (10.1-14.3); Mean Corpuscular HGB Conc 34 % (30-34); Mean Corpuscular Volume 95 fl (79-97); Red Blood Count 3.21 M/mm3 (3.65-5.03); Red Cell Distribution Width 14.4 % (13.2-15.2)
[2018-10-26 05:03] LABS: Platelet Count 99 K/mm3 (140-440)
[2018-10-26 05:16] LABS: BUN/Creatinine Ratio 13; Blood Urea Nitrogen 10 mg/dL (7-17); Calcium 8.6 mg/dL (8.4-10.2); Hemolysis Index 1
[2018-10-26] MEDS: NACL 0.9% 1000 ML 1,000 ML IV SCH (06:21)
[2018-10-26] MEDS: TYLENOL PO PRN (06:21)
[2018-10-26] MEDS: ceFAZolin 3 GM in NACL 0.9% 100 ML IV SCH ×3 (06:25→22:17)
[2018-10-26] MEDS: HumaLOG SUB-Q SCH ×4 (07:30→22:55)
[2018-10-26] MEDS: NEURONTIN PO SCH ×3 (08:55→22:17)
--- NOTE | 2018-10-26 09:37 | Progress Note ---
Assessment and Plan Cultures: Urine cultures 10/22/2018 Proteus, E. Coli Blood cultures 10/22/2018 no growth so far Left Leg wound 10/23/2018 Rare growth of usual skin tash MRSA PCR: negtive Assessment: 38 y/o female with history of HIV infection on triumeq, sees Dr Pedro Ponce (last VL<20) currently not taking her HIV meds for 4 weeks, morbid obesity, HTN, Nicotine Dependence, DM and recurrent skin boils/gen groin hidradenitis; known to ID service; readmitted on 10/22/2018 due to a week history of worsening left sided groin drainage and tenderness associated with a fever at 103 and elevated glucose: 1) Severe Sepsis: Improved. fevers continuing. Etiology most likely left groin/thigh abscesses on top of hidradenitis +/- UTI. If fevers continue may have to go to OR for further I & D 2) Left groin/thigh abscesses on top of hidradenitis: Wound culture from 06/02/2018 and 06/21/2018 both grew MSSA and group B Strep. She has missed wound care and HIV clinic apts. CT showed gen inguinal LNs with induration in left inguinal region. 3) HIV: non compliance with meds or apt. 4) DM: uncontrolled 5) UTI: Urine cultures 10/22/2018 Proteus, E.Coli Recommendations: If fevers continue may have to go to OR for further I & D follow-up blood cultures continue cefazolin 3 gm IV q 8 hours - should cover Strep, MSSA, Proteus and E.coli follow-up CD4/VL/genotype keep off ART for now - she has been off for 4 weeks, needs genotype - Has a confirmed appointment with Dr. Ponce next month eventually will require plastic surgery referral for hidradenitis surgery At discharge will do Ceftin 500mg Po BID total 14 days ending 11-05-18 and Keflex 500 Po BID for 2-3 months for suppression Will follow up with wound care at discharge [facility] M: [phone] O:[phone] Subjective Date of service: 10/26/18 Interval history: Patient seen and examined. Report continued left thigh discomfort. Fevers continuing. Objective - Exam Narrative Exam: General appearance: Awake. Alert.Left groin pain. Eyes: anicteric sclerae, moist conjunctivae; no lid-lag; PERRLA HENT: Atraumatic; oropharynx clear with moist mucous membranes and no mucosal ulcerations/no oral thrush; normal hard and soft palate. Normal external ears. Neck: Trachea midline; supple, no thyromegaly or lymphadenopathy Lungs: CTA, with normal respiratory effort and no intercostal retractions CV: RRR no murmur Abdomen: Soft, non-tender; no masses or hepatosplenomegaly Extremities: gen groin and perineal multiple sinus tracts left groin cysts x 3. Wrapped in dressing. C/D/I Skin: Normal temperature, turgor and texture; no rash, ulcers or subcutaneous nodules Psych: Appropriate affect, alert and oriented to person, place and time. Neuro: alert and oriented x 3. Moving all extremities - Constitutional Vitals: Vital Signs Temp Pulse Resp BP Pulse Ox 100.5 F H 101 H 20 151/81 95 10/26/18 05:59 10/26/18 05:59 10/26/18 05:59 10/26/18 05:59 10/26/18 05:59 Temperature -Last 24 Hours Temperature 100.5 F Temperature 99.6 F Temperature 98.7 F Temperature 98.9 F - Labs CBC & Chem 7: 10/26/18 04:16 10/26/18 04:16 Labs: Abnormal lab results 10/25/18 10/25/18 10/25/18 Range/Units 12:06 17:59 21:31 WBC (4.5-11.0) K/mm3 RBC (3.65-5.03) M/mm3 Plt Count (140-440) K/mm3 Sodium (137-145) mmol/L Glucose (65-100) mg/dL POC Glucose 366 H 361 H 315 H (70-105) Hemoglobin A1c (4-6) % 10/26/18 10/26/18 10/26/18 Range/Units 04:16 04:16 04:16 WBC 3.9 L (4.5-11.0) K/mm3 RBC 3.21 L (3.65-5.03) M/mm3 Plt Count 99 L (140-440) K/mm3 Sodium 136 L (137-145) mmol/L Glucose 343 H (65-100) mg/dL POC Glucose (70-105) Hemoglobin A1c 12.3 H (4-6) % 10/26/18 Range/Units 08:07 WBC (4.5-11.0) K/mm3 RBC (3.65-5.03) M/mm3 Plt Count (140-440) K/mm3 Sodium (137-145) mmol/L Glucose (65-100) mg/dL POC Glucose 359 H (70-105) Hemoglobin A1c (4-6) %
[2018-10-26] MEDS: WELLBUTRIN XL PO SCH (11:18)
[2018-10-26] MEDS: ABILIFY PO SCH (11:18)
[2018-10-26] MEDS: ESKALITH PO SCH ×2 (11:18→22:13)
[2018-10-26] MEDS ORDERED: VASELINE LIP THERAPY TP PRN (12:30)
--- NOTE | 2018-10-26 13:26 | Progress Note ---
Assessment and Plan Sepsis due to left thigh cellulitis and abscess: - Continue to treat with abx Left thigh cellulitis with abscess and hidradenitis, s/p I-n-D by GS; - Wound culture from 06/02/2018 and 06/21/2018 both grew MSSA and group B Strep. She has missed wound care and HIV clinic apts. CT showed gen inguinal LNs with induration in left inguinal region. cont abx per ID for now UTI; treat with abx, Urine cultures 10/22/2018 Proteus, E.Coli HIV: On ART but noncompliant, consulted ID DM type 2, uncontrolled, adjust insulin dose for better control, takes insulin pump at home HTN, BP el;evated here, has no h/o, cont to monitor and add BP meds Disposition: continue inpatient care, d/c once afebrile >24 hours Brief History Patient is a 38 yo woman with a history of HIV on HAART therapy, Asthma, depression/anxiety, dyslipidemia, obesity, hypertension, IDDM, tobacco dep endency and abscess of left thigh who presented to [facility] ED initially on 10/06/18 with another left thigh boil with drainage. The area was incised. She was also found to have a UTI and yeast infection. She was sent home from [facility] ED with clindamycin/diflucan/macrobid. She returned to [facility] ED on 10/22/18 with fevers along with n/v, drainage of the left inner thigh wound. * CT abd/pelvis without contrast IMPRESSION: 1. No acute findings. 2. Continued presence of bilateral inguinal adenopathy with induration of the left inguinal region. These findings were noted on the most recent CT scan of 10/06/2018. 3. Probable mild hepatic steatosis.. * 2V CXR impression: no acute findings Hospitalist Physical Gen: WDWN, NAD, Awake, Alert, Orientated HEENT: NCAT, EOMI, PERRL, OP Clear Neck: supple, no adenopathy, no thyromegaly, no JVD CVS/Heart: RRR, normal S1S2, pulses present bilaterally Chest/Lungs: CTA B, Symmetrical chest expansion, good air entry bilaterally GI/Abdomen: soft, NTND, good bowel sounds, no guarding or rebound /Bladder: no suprapubic tenderness, no CVA or paraspinal tenderness Extermity/Skin: left inner thigh without a fluid collection or mass felt. the area has small MSK: FROM x 4 Neuro: CN 2-12 grossly intact, no new focal deficits Psych: calm Subjective Date of service: 10/26/18 Interval history: Patient seen and examined. Medical records and medication list reviewed. No acute event overnight noted by the RN. Patient denies any chest pain or difficulty breathing. Patient is tolerating diet. Complains of lower back pain, which is chronic Discussed plan of care at bedside with patient. Objective - Constitutional Vitals: Vital Signs - 12hr 10/26/18 05:59 Temperature 100.5 F H Pulse Rate 101 H Respiratory 20 Rate Blood Pressure 151/81 O2 Sat by Pulse 95 Oximetry - Labs CBC & Chem 7: 10/26/18 04:16 10/26/18 04:16 Labs: Abnormal lab results 10/25/18 10/25/18 10/26/18 Range/Units 17:59 21:31 04:16 WBC 3.9 L (4.5-11.0) K/mm3 RBC 3.21 L (3.65-5.03) M/mm3 Plt Count 99 L (140-440) K/mm3 Sodium (137-145) mmol/L Glucose (65-100) mg/dL POC Glucose 361 H 315 H (70-105) Hemoglobin A1c (4-6) % 10/26/18 10/26/18 10/26/18 Range/Units 04:16 04:16 08:07 WBC (4.5-11.0) K/mm3 RBC (3.65-5.03) M/mm3 Plt Count (140-440) K/mm3 Sodium 136 L (137-145) mmol/L Glucose 343 H (65-100) mg/dL POC Glucose 359 H (70-105) Hemoglobin A1c 12.3 H (4-6) %
[2018-10-26] MEDS: PERCOCET 5/325 PO PRN ×2 (16:51→22:12)
[2018-10-26] MEDS: REGLAN IV PRN (18:51)
[2018-10-26] MEDS: LANTUS SUB-Q SCH (22:56)
[2018-10-27] MEDS: BENADRYL IV PRN ×2 (01:26→09:04)
[2018-10-27] MEDS: MORPHINE IV PRN ×2 (01:26→09:04)
[2018-10-27] MEDS: ceFAZolin 3 GM in NACL 0.9% 100 ML IV SCH (06:15)
[2018-10-27] MEDS: PERCOCET 5/325 PO PRN ×2 (06:20→11:44)
[2018-10-27] MEDS: HumaLOG SUB-Q SCH ×2 (07:30→11:18)
[2018-10-27] MEDS: NEURONTIN PO SCH ×2 (08:00→13:11)
[2018-10-27] MEDS: ABILIFY PO SCH (10:00)
[2018-10-27] MEDS: ESKALITH PO SCH (10:00)
[2018-10-27] MEDS: WELLBUTRIN XL PO SCH (10:00)
--- NOTE | 2018-10-27 11:22 | Progress Note ---
Assessment and Plan Cultures: Urine cultures 10/22/2018 Proteus, E. Coli Blood cultures 10/22/2018 no growth Left Leg wound 10/23/2018 Rare growth of usual skin tash MRSA PCR: negtive Assessment: 38 y/o female with history of HIV infection on triumeq, sees Dr Pedro Ponce (last VL<20) currently not taking her HIV meds for 4 weeks, morbid obesity, HTN, Nicotine Dependence, DM and recurrent skin boils/gen groin hidradenitis; known to ID service; readmitted on 10/22/2018 due to a week history of worsening left sided groin drainage and tenderness associated with a fever at 103 and elevated glucose: 1) Severe Sepsis: fever curve improving. Etiology most likely left groin/thigh abscesses on top of hidradenitis +/- UTI. If fevers continue may have to go to OR for further I & D 2) Left groin/thigh abscesses on top of hidradenitis: Wound culture from 06/02/2018 and 06/21/2018 both grew MSSA and group B Strep. She has missed wound care and HIV clinic apts. CT showed gen inguinal LNs with induration in left inguinal region. 3) HIV: non compliance with meds or apt. 4) DM: uncontrolled 5) UTI: Urine cultures 10/22/2018 Proteus, E.Coli Recommendations: continue cefazolin 3 gm IV q 8 hours - should cover Strep, MSSA, Proteus and E.coli follow-up CD4/VL/genotype keep off ART for now - she has been off for 4 weeks, needs genotype - Has a confirmed appointment with Dr. Ponce next month eventually will require plastic surgery referral for hidradenitis surgery At discharge will do Ceftin 500mg Po BID total 14 days ending 11-05-18 and Keflex 500 Po BID for 2-3 months for suppression Will follow up with wound care at discharge ID is signing off [facility] M: [phone] O:[phone] Subjective Date of service: 10/27/18 Interval history: Patient seen and examined. No generalized pain or weakness reported. no fevers. Objective - Exam Narrative Exam: General appearance: Awake. Alert. no acute distress Eyes: anicteric sclerae, moist conjunctivae; no lid-lag; PERRLA HENT: Atraumatic; oropharynx clear with moist mucous membranes and no mucosal ulcerations/no oral thrush; normal hard and soft palate. Normal external ears. Neck: Trachea midline; supple, no thyromegaly or lymphadenopathy Lungs: CTA, with normal respiratory effort and no intercostal retractions CV: RRR no murmur Abdomen: Soft, non-tender; no masses or hepatosplenomegaly Extremities: gen groin and perineal multiple sinus tracts left groin cysts x 3. Wrapped in dressing. C/D/I Skin: Normal temperature, turgor and texture; no rash, ulcers or subcutaneous nodules Psych: Appropriate affect, alert and oriented to person, place and time. Neuro: alert and oriented x 3. Moving all extremities - Constitutional Vitals: Vital Signs Temp Pulse Resp BP Pulse Ox 98.7 F 105 H 20 166/71 96 10/27/18 05:39 10/27/18 05:39 10/27/18 05:39 10/27/18 05:39 10/27/18 05:39 Temperature -Last 24 Hours Temperature 98.7 F Temperature 99.3 F Temperature 99.4 F Temperature 99.3 F - Labs CBC & Chem 7: 10/26/18 04:16 10/26/18 04:16 Labs: Abnormal lab results 10/26/18 10/26/18 10/26/18 Range/Units 13:12 18:48 21:35 POC Glucose 256 H 323 H 349 H (70-105) 10/27/18 10/27/18 Range/Units 08:19 11:18 POC Glucose 386 H 331 H (70-105)
--- NOTE | 2018-10-27 12:24 | Discharge Summary ---
Providers - Providers Date of Admission: 10/23/18 07:00 Date of discharge: 11/03/18 Attending physician: TRISHA PETE 10/23/18 05:46 Consult to Wound/ET Nurse [CONS] Routine Reason For Exam: wound eval 10/23/18 12:06 Consult to Physician [CONS] Routine Comment: Consulting Provider: JERRY MEEK Physician Instructions: Reason For Exam: sepsis, uti, left inner thigh abscess 10/23/18 12:07 Consult to Physician [CONS] Routine Comment: Consulting Provider: ANA CORTES Physician Instructions: Reason For Exam: left inner thigh abscess, you drained before [facility] care [facility]: [facility] Hospitalization Condition: Fair Hospital course: Patient is a 38 yo woman with a history of HIV on HAART therapy, Asthma, depression/anxiety, dyslipidemia, obesity, hypertension, IDDM, tobacco dependency and abscess of left thigh who presented to [facility] ED initially on 10/06/18 with another left thigh boil with drainage. The area was incised. She was also found to have a UTI and yeast infection. She was sent home from [facility] ED with clindamycin/diflucan/macrobid. She returned to [facility] ED on 10/22/18 with fe vers along with n/v, drainage of the left inner thigh wound. Radiological data: * CT abd/pelvis without contrast IMPRESSION: 1. No acute findings. 2. Continued presence of bilateral inguinal adenopathy with induration of the left inguinal region. These findings were noted on the most recent CT scan of 10/06/2018. 3. Probable mild hepatic steatosis.. * 2V CXR impression: no acute findings Discharge diagnosis and management: Sepsis due to left thigh cellulitis and abscess: - Continue to treat with abx Left thigh cellulitis with abscess and hidradenitis, s/p I-n-D by GS; - Wound culture from 06/02/2018 and 06/21/2018 both grew MSSA and group B Strep. - She has missed wound care and HIV clinic apts. CT showed gen inguinal LNs with induration in left inguinal region. - Treated with continue cefazolin 3 gm IV q 8 hours to cover Strep, MSSA, - eventually will require plastic surgery referral for hidradenitis surgery - will continue Ceftin 500mg Po BID total 14 days ending 8-2-19 and Keflex 500 Po BID for 2-3 months for suppression UTI; treated with abx, Urine cultures 10/22/2018 Proteus, E.Coli HIV: On ART but noncompliant, consulted ID - recommended to keep off ART for now - she has been off for 4 weeks, needs genotype - Has a confirmed appointment with Dr. Ponce next month DM type 2, uncontrolled, adjusted insulin dose for better control, takes insulin pump at home HTN, BP elevated here, has no h/o, placed on metoprolol and norvasc Disposition: home Hospitalist Physical Gen: WDWN, NAD, Awake, Alert, Orientated HEENT: NCAT, EOMI, PERRL, OP Clear Neck: supple, no adenopathy, no thyromegaly, no JVD CVS/Heart: RRR, normal S1S2, pulses present bilaterally Chest/Lungs: CTA B, Symmetrical chest expansion, good air entry bilaterally GI/Abdomen: soft, NTND, good bowel sounds, no guarding or rebound /Bladder: no suprapubic tenderness, no CVA or paraspinal tenderness Extermity/Skin: left inner thigh without a fluid collection or mass felt. the area has small MSK: FROM x 4 Neuro: CN 2-12 grossly intact, no new focal deficits Psych: calm Disposition: DC-01 TO HOME OR SELFCARE Time spent for discharge: 34 minutes Core Measure Documentation - Palliative Care Palliative Care/ Comfort Measures: Not Applicable - Core Measures Any of the following diagnoses?: none Exam - Constitutional Vitals: Temp Pulse Resp BP Pulse Ox 98.7 F 105 H 20 166/71 96 10/27/18 05:39 10/27/18 05:39 10/27/18 05:39 10/27/18 05:39 10/27/18 05:39 Plan Activity: advance as tolerated Weight Bearing Status: Weight Bear as Tolerated Diet: diabetic Wound: per wound nurse instructions Follow up with: TERESA VALDEZ MD [Primary Care Provider] - 3-5 Days ARAM PONCE MD [Staff Physician] - 7 Days Prescriptions: cefUROXime [Ceftin] 500 mg PO Q12H 10 Days #20 tablet cephALEXin [Keflex] 500 mg PO Q12HR #60 cap Metoprolol [Lopressor TAB] 25 mg PO BID #60 tablet Ibuprofen [Motrin 800 MG tab] 800 mg PO Q8HR PRN #20 tablet PRN Reason: Pain , Severe (7-10) HYDROcodone/APAP 5-325 [[place]arks 5-325 mg TAB] 1 each PO Q6HR PRN #7 tablet PRN Reason: Pain amLODIPine [Norvasc] 10 mg PO QDAY #30 tablet Ondansetron [Zofran ODT TAB] 4 mg PO Q8HR #10 tab.asim
[2018-10-27] MEDS ORDERED: NORVASC PO SCH (13:00)
[2018-10-27 13:04] VITALS: BP 162/80
[2018-10-27] MEDS ORDERED: LANTUS SUB-Q SCH (22:00)
[2018-10-27] MEDS ORDERED: LOPRESSOR PO SCH (22:00)
== END 2018-10-27 13:42 | disposition home or self-care (01) | DRG 872 ==
LOC: ED 16:32 → INTOOBSV 21:20 → 3A 21:20 → OBSVTOIN 10-23 07:00 → 3A 10-23 17:11
PROVIDERS: ADMIT Internal Medicine; ATTEND Internal Medicine
PROC: 0Y9D0ZZ Drainage of Left Upper Leg, Open Approach (ICD-10-PCS; principal; 2018-10-23)
DX: A41.9 Sepsis, unspecified organism (principal); N39.0 Urinary tract infection, site not specified; L03.116 Cellulitis of left lower limb; Z68.42 Body mass index [BMI] 45.0-49.9, adult; L02.416 Cutaneous abscess of left lower limb; F32.9 Major depressive disorder, single episode, unspecified; I10 Essential (primary) hypertension; F41.9 Anxiety disorder, unspecified; F17.200 Nicotine dependence, unspecified, uncomplicated; Z96.41 Presence of insulin pump (external) (internal); E66.01 Morbid (severe) obesity due to excess calories; R65.20 Severe sepsis without septic shock; L73.2 Hidradenitis suppurativa; Z21 Asymptomatic human immunodeficiency virus [HIV] infection status; E11.65 Type 2 diabetes mellitus with hyperglycemia; E11.42 Type 2 diabetes mellitus with diabetic polyneuropathy; J45.909 Unspecified asthma, uncomplicated; Z79.4 Long term (current) use of insulin; Z91.14 Patient's other noncompliance with medication regimen; Z91.041 Radiographic dye allergy status; Z90.49 Acquired absence of other specified parts of digestive tract; Z90.710 Acquired absence of both cervix and uterus; Z91.013 Allergy to seafood; Z79.899 Other long term (current) drug therapy; Z88.2 Allergy status to sulfonamides
CPT/HCPCS: 36415; 71046; 74176; 80048; 80053; 81001; 82140; 82805; 82962; 83036; 85025; 85027; 85610; 87040; 87076; 87086; 87116; 87186; 93005; 93010; G0378; A9270-GY; J0690; J0692; J1200; J1815; J2270; J2405; J2543; J2765; J3370; J7030; J7040

== ENCOUNTER 2018-12-03 19:46 | Inpatient (IN) | payer MEDICARE ==
[2018-12-03] MEDS ORDERED: TYLENOL PO STA (19:54)
[2018-12-03] MEDS ORDERED: NACL 0.9% 500 ML 500 ML IV ONE (19:54)
--- NOTE | 2018-12-03 19:58 | Event Note ---
ED Screening Note ED Screening Note: BOILS, FEVER HTN HIV- 2004; UNDETECT. DM RX TRIMIC This initial assessment/diagnostic orders/clinical plan/treatment(s) is/are subject to change based on patients health status, clinical progression and re- assessment by fellow clinical providers in the ED. Further treatment and workup at subsequent clinical providers discretion. Patient/guardian urged not to elope from the ED as their condition may be serious if not clinically assessed and managed. Initial orders include: SEPTIC WORK UP
--- NOTE | 2018-12-03 20:27 | XRay Report ---
CHEST 1 VIEW INDICATION / CLINICAL INFORMATION: possible Sepsis. COMPARISON: None available. FINDINGS: SUPPORT DEVICES: None. HEART / MEDIASTINUM: No significant abnormality. LUNGS / PLEURA: No significant pulmonary or pleural abnormality. No pneumothorax. ADDITIONAL FINDINGS: No significant additional findings. IMPRESSION: 1. No acute findings. Signer Name: Rasheed Pino MD Signed: 12/03/2018 8:22 PM Workstation Name: [id number]
[2018-12-03] MEDS ORDERED: ZOFRAN IV ONE (20:29)
[2018-12-03] MEDS ORDERED: MORPHINE IV ONE ×2 (20:29→21:49)
[2018-12-03] MEDS ORDERED: NACL 0.9% 1000 ML 1,000 ML IV ONE ×2 (20:29→21:33)
[2018-12-03 20:32] LABS: Hematocrit 38.5 % (30.3-42.9); Hemoglobin 12.9 gm/dl (10.1-14.3); Mean Corpuscular HGB Conc 34 % (30-34); Mean Corpuscular Volume 92 fl (79-97); Platelet Count 156 K/mm3 (140-440); Red Blood Count 4.21 M/mm3 (3.65-5.03); Red Cell Distribution Width 15.3 % (13.2-15.2)
[2018-12-03 20:57] LABS: Albumin 3.5 g/dL (3.9-5); Calcium 9.3 mg/dL (8.4-10.2)
[2018-12-03] MEDS ORDERED: LEVAQUIN 500MG/100ML 500 MG/100 ML BAG IV ONE (21:25)
[2018-12-03] MEDS ORDERED: CLEOCIN 600 MG/50 mL 600 MG/50 ML BAG IV ONE (21:25)
[2018-12-03 21:32] LABS: Basophils % (Manual) 0 % (0.0-1.8); Eosinophils % (Manual) 0 % (0.0-4.3); RBC Morphology Normal; Total Cells Counted 100
[2018-12-03 21:54] LABS: Bacteria,Urine 1+ /HPF (Negative); Bilirubin,Urine NEG (Negative); Blood,Urine MOD (Negative); Color,Urine Amber (Yellow); Hyaline Casts,Urine 5 /LPF; Mucus,Urine 1+ /HPF; Urobilinogen,Urine < 2.0 mg/dL (<2.0)
[2018-12-03 21:55] LABS: Protein,Urine >500 mg/dL (Negative); WBC,Urine > 182.0 /HPF (0.0-6.0)
--- NOTE | 2018-12-03 22:21 | Emergency Department Report ---
ED General Adult HPI - General Chief complaint: Arrhythmia/Palpitations Stated complaint: FEVER, VOMITING, RAPID HEARTBEAT Time Seen by Provider: 12/03/18 19:53 Source: patient Mode of arrival: Ambulatory Limitations: No Limitations - History of Present Illness Initial comments: Patient is a 38-year-old female who is presenting with dysuria as well as high fever. Patient's been in and out of the hospital quite frequently over the last 2 months secondary to recurrent UTI as well as hidradenitis. Patient has had multiple I&D's. Patient ended a course of Levaquin on 11/20/2018 for UTI. Her last urine cultures grew Escherichia coli and Proteus. Patient is complaining of dysuria and some suprapubic discomfort. Patient states she also is continued to have some draining of small abscesses in the left groin right buttock and left axilla. Please see the below discharge summary from her last discharge from 11/11/2018 Hospital course: 38 year old female with a past medical history of HIV infection on Triumeg, sees Dr. Pedro Ponce ( last VL <20, CD4 319), non- compliant with ART therapy, asthma, depression, hyperlipedemia,obesity, hypertension, diabetes, tobacco dependency, recurrent skin boils, bilateral groin hidradenitis most recently admitted on 10/24/18 for Sepsis, etiology left groin/thigh abscess on top of hidradenitis and Proteus, E.coli UTI. Wound cultures from 06/02/18 and 06/21/18 both grew MSSA and group B strep. She presents to the ED on 11/10/18 with complaints of right flank pain, right lower quadrant pain, fever, chills, nausea/vomiting and dysuria. Discharge diagnosis and management: /Severe Sepsis, POA: Imrpoved. Etiology most likely UTI. Blood culture negative. CXR no consolidation. /UTI: - UA with significant pyuria, WBC > 182, Large LE. Abdomen and Pelvis CT shows right renal low density cyst. -Initially placed on rocephin, on discharge given levaquin 500 mg PO qday total 10 days until 11/20/2018 / HIV: - On Triumeg at home. Next appointment 11/22/18. She was given Dolutegravir, Epivir and Abacavir as Triumeg nonformulary - will f/u with Dr Ponce /DM type 2, cont SSI, start on novolin 70/30 /HTN, monitor BP, cont amlodipine, hydralazine iv as needed Severity scale (0 -10): 9 - Related Data Home Medications Medication Instructions Recorded Confirmed Last Taken Atorvastatin [Lipitor] 40 mg PO HS 04/13/13 11/11/18 09/08/17 Abacavir/Dolutegravir/Lamivudi 1 each PO DAILY 07/10/15 11/11/18 09/08/17 [Triumeq 600-50-300 mg Tablet] ARIPiprazole [Abilify TAB] 15 mg PO QDAY 06/02/18 11/11/18 Unknown [place] Carbonate [Eskalith] 300 mg PO BID 06/02/18 11/11/18 Unknown Mirtazapine 45 mg PO QHS 06/02/18 11/11/18 Unknown buPROPion XL [Wellbutrin XL] 150 mg PO QDAY 06/02/18 11/11/18 Unknown Previous Rx's Medication Instructions Recorded Last Taken Type Metoprolol [Lopressor TAB] 25 mg PO BID #60 tablet 10/27/18 Unknown Rx Petrolatum,White [Vaseline Lip 1 applic TP DIRECT PRN tube 10/27/18 Unknown Rx Therapy] amLODIPine [Norvasc] 10 mg PO QDAY #30 tablet 10/27/18 Unknown Rx Ibuprofen [Motrin 800 MG tab] 800 mg PO Q8HR PRN #14 tablet 11/14/18 Unknown Rx Insulin NPH/Regular [NovoLIN 70/30] 30 unit SUB-Q QDDIAB #10 ml 11/14/18 Unknown Rx levoFLOXacin [Levaquin] 750 mg PO QDAY #6 tablet 11/14/18 Unknown Rx Allergies Allergy/AdvReac Type Severity Reaction Status Date / Time iodine Allergy Swelling Verified 10/22/18 17:47 sulfamethoxazole Allergy Rash Verified 10/22/18 17:47 [From Bactrim] trimethoprim [From Bactrim] Allergy Rash Verified 10/22/18 17:47 metformin AdvReac Nausea Verified 10/22/18 17:47 seafood Allergy Rash Uncoded 02/16/18 13:38 ED Review of Systems ROS: Stated complaint: FEVER, VOMITING, RAPID HEARTBEAT Other details as noted in HPI Comment: All other systems reviewed and negative ED Past Medical Hx - Past Medical History Previous Medical History?: Yes Hx Hypertension: Yes Hx Heart Attack/AMI: No Hx Congestive Heart Failure: No Hx Diabetes: Yes Hx Deep Vein Thrombosis: No Hx Liver Disease: No Hx Renal Disease: No Hx Seizures: No Hx Psychiatric Treatment: Yes (anxiety depression) Hx Asthma: No Hx COPD: No Hx HIV: Yes Additional medical history: HIGH CHOLESTEROL - Surgical History Past Surgical History?: Yes Hx Pacemaker: No Hx Internal Defibrillator: No Hx Cholecystectomy: Yes Additional Surgical History: d&c x1, insulin pump placement, TOTAL HYSTERECTOMY, boil removal to R inner thigh - Social History Smoking Status: Current Every Day Smoker Substance Use Type: None - Medications Home Medications: Home Medications Medication Instructions Recorded Confirmed Last Taken Type Atorvastatin [Lipitor] 40 mg PO HS 04/13/13 11/11/18 09/08/17 History Abacavir/Dolutegravir/Lamivudi 1 each PO DAILY 07/10/15 11/11/18 09/08/17 History [Triumeq 600-50-300 mg Tablet] ARIPiprazole [Abilify TAB] 15 mg PO QDAY 06/02/18 11/11/18 Unknown History [place] Carbonate [Eskalith] 300 mg PO BID 06/02/18 11/11/18 Unknown History Mirtazapine 45 mg PO QHS 06/02/18 11/11/18 Unknown History buPROPion XL [Wellbutrin XL] 150 mg PO QDAY 06/02/18 11/11/18 Unknown History Metoprolol [Lopressor TAB] 25 mg PO BID #60 tablet 10/27/18 11/11/18 Unknown Rx Petrolatum,White [Vaseline Lip 1 applic TP DIRECT PRN tube 10/27/18 11/11/18 Unknown Rx Therapy] amLODIPine [Norvasc] 10 mg PO QDAY #30 tablet 10/27/18 11/11/18 Unknown Rx Ibuprofen [Motrin 800 MG tab] 800 mg PO Q8HR PRN #14 tablet 11/14/18 Unknown Rx Insulin NPH/Regular [NovoLIN 70/30] 30 unit SUB-Q QDDIAB #10 ml 11/14/18 Unknown Rx levoFLOXacin [Levaquin] 750 mg PO QDAY #6 tablet 11/14/18 Unknown Rx ED Physical Exam - General Limitations: No Limitations General appearance: alert, in no apparent distress - Head Head exam: Present: atraumatic, normocephalic - Eye Eye exam: Present: normal appearance, PERRL, EOMI - ENT ENT exam: Present: mucous membranes moist - Neck Neck exam: Present: normal inspection - Respiratory Respiratory exam: Present: normal lung sounds bilaterally. Absent: respiratory distress, wheezes, rales, rhonchi - Cardiovascular Cardiovascular Exam: Present: normal rhythm, tachycardia, normal heart sounds. Absent: systolic murmur, diastolic murmur, rubs, gallop - GI/Abdominal GI/Abdominal exam: Present: soft, normal bowel sounds. Absent: distended, tenderness, guarding, rebound, rigid - Extremities Exam Extremities exam: Present: normal inspection - Back Exam Back exam: Present: normal inspection - Neurological Exam Neurological exam: Present: alert, oriented X3 - Psychiatric Psychiatric exam: Present: normal affect, normal mood - Skin Skin exam: Present: warm, dry, intact, normal color, other (with scarring to the bilateral axilla and groin. Patient with some firmness and tenderness to the left axilla with no evidence of fluctuance. Patient has a open abscess which is draining on the right buttock just adjacent to the vulva.). Absent: rash ED Course Vital Signs 12/03/18 12/03/18 19:51 20:58 Temperature 102.9 F H 99.5 F Pulse Rate 130 H 118 H Respiratory 18 20 Rate Blood Pressure 101/52 Blood Pressure 100/57 [Right] O2 Sat by Pulse 100 95 Oximetry ED Medical Decision Making - Lab Data Result diagrams: 12/03/18 20:17 12/03/18 20:17 Lab Results 12/03/18 12/03/18 12/03/18 Range/Units 20:17 20:17 20:17 WBC 5.4 (4.5-11.0) K/mm3 RBC 4.21 (3.65-5.03) M/mm3 Hgb 12.9 (10.1-14.3) gm/dl Hct 38.5 (30.3-42.9) % MCV 92 (79-97) fl MCH 31 (28-32) pg MCHC 34 (30-34) % RDW 15.3 H (13.2-15.2) % Plt Count 156 (140-440) K/mm3 Add Manual Diff Complete Total Counted 100 Seg Neutrophils % Slab Installer Seg Neuts % (Manual) 88.0 H (40.0-70.0) % Band Neutrophils % 0 % Lymphocytes % (Manual) 10.0 L (13.4-35.0) % Reactive Lymphs % (Man) 0 % Monocytes % (Manual) 2.0 (0.0-7.3) % Eosinophils % (Manual) 0 (0.0-4.3) % Basophils % (Manual) 0 (0.0-1.8) % Metamyelocytes % 0 % Myelocytes % 0 % Promyelocytes % 0 % Blast Cells % 0 % Nucleated RBC % Not Reportable Seg Neutrophils # Man 4.8 (1.8-7.7) K/mm3 Band Neutrophils # 0.0 K/mm3 Lymphocytes # (Manual) 0.5 L (1.2-5.4) K/mm3 Abs React Lymphs (Man) 0.0 K/mm3 Monocytes # (Manual) 0.1 (0.0-0.8) K/mm3 Eosinophils # (Manual) 0.0 (0.0-0.4) K/mm3 Basophils # (Manual) 0.0 (0.0-0.1) K/mm3 Metamyelocytes # 0.0 K/mm3 Myelocytes # 0.0 K/mm3 Promyelocytes # 0.0 K/mm3 Blast Cells # 0.0 K/mm3 WBC Morphology Not Reportable Hypersegmented Neuts Not Reportable Hyposegmented Neuts Not Reportable Hypogranular Neuts Not Reportable Smudge Cells Not Reportable Toxic Granulation Not Reportable Toxic Vacuolation Not Reportable Dohle Bodies Not Reportable Pelger-Huet Anomaly Not Reportable Mary Kay Rods Not Reportable Platelet Estimate Not Reportable Clumped Platelets Not Reportable Plt Clumps, EDTA Not Reportable Large Platelets Not Reportable Giant Platelets Not Reportable Platelet Satelliting Not Reportable Plt Morphology Comment Not Reportable RBC Morphology Normal Dimorphic RBCs Not Reportable Polychromasia Not Reportable Hypochromasia Not Reportable Poikilocytosis Not Reportable Anisocytosis Not Reportable Microcytosis Not Reportable Macrocytosis Not Reportable Spherocytes Not Reportable Pappenheimer Bodies Not Reportable Sickle Cells Not Reportable Target Cells Not Reportable Tear Drop Cells Not Reportable Ovalocytes Not Reportable Helmet Cells Not Reportable Richardson-[place] Bodies Not Reportable Gilbert Rings Not Reportable Karla Cells Not Reportable Bite Cells Not Reportable Crenated Cell Not Reportable Elliptocytes Not Reportable Acanthocytes (Spur) Not Reportable Rouleaux Not Reportable Hemoglobin C Crystals Not Reportable Schistocytes Not Reportable Malaria parasites Not Reportable Jim Bodies Not Reportable Hem Pathologist Commnt No VBG pH (7.320-7.420) Sodium 136 L (137-145) mmol/L Potassium 3.8 (3.6-5.0) mmol/L Chloride 98.7 (98-107) mmol/L Carbon Dioxide 20 L (22-30) mmol/L Anion Gap 21 mmol/L BUN 18 H (7-17) mg/dL Creatinine 1.2 (0.7-1.2) mg/dL Estimated GFR 51 ml/min BUN/Creatinine Ratio 15 % Glucose 371 H (65-100) mg/dL Lactic Acid 2.80 H* (0.7-2.0) mmol/L Calcium 9.3 (8.4-10.2) mg/dL Total Bilirubin 0.50 (0.1-1.2) mg/dL AST 214 H (5-40) units/L ALT 152 H (7-56) units/L Alkaline Phosphatase 213 H (35-129) units/L Total Protein 7.9 (6.3-8.2) g/dL Albumin 3.5 L (3.9-5) g/dL Albumin/Globulin Ratio 0.8 % Urine Color (Yellow) Urine Turbidity (Clear) Urine pH (5.0-7.0) Ur Specific Jenner (1.003-1.030) Urine Protein (Negative) mg/dL Urine Glucose (UA) (Negative) mg/dL Urine Ketones (Negative) mg/dL Urine Blood (Negative) Urine Nitrite (Negative) Urine Bilirubin (Negative) Urine Urobilinogen (<2.0) mg/dL Ur Leukocyte Esterase (Negative) Urine WBC (Auto) (0.0-6.0) /HPF Urine RBC (Auto) (0.0-6.0) /HPF U Epithel Cells (Auto) (0-13.0) /HPF Urine Bacteria (Auto) (Negative) /HPF Urine WBC Clumps /HPF Hyaline Casts /LPF Urine Mucus /HPF Urine Yeast (Budding) /HPF 12/03/18 12/03/18 Range/Units 20:17 21:33 WBC (4.5-11.0) K/mm3 RBC (3.65-5.03) M/mm3 Hgb (10.1-14.3) gm/dl Hct (30.3-42.9) % MCV (79-97) fl MCH (28-32) pg MCHC (30-34) % RDW (13.2-15.2) % Plt Count (140-440) K/mm3 Add Manual Diff Total Counted Seg Neutrophils % Seg Neuts % (Manual) (40.0-70.0) % Band Neutrophils % % Lymphocytes % (Manual) (13.4-35.0) % Reactive Lymphs % (Man) % Monocytes % (Manual) (0.0-7.3) % Eosinophils % (Manual) (0.0-4.3) % Basophils % (Manual) (0.0-1.8) % Metamyelocytes % % Myelocytes % % Promyelocytes % % Blast Cells % % Nucleated RBC % Seg Neutrophils # Man (1.8-7.7) K/mm3 Band Neutrophils # K/mm3 Lymphocytes # (Manual) (1.2-5.4) K/mm3 Abs React Lymphs (Man) K/mm3 Monocytes # (Manual) (0.0-0.8) K/mm3 Eosinophils # (Manual) (0.0-0.4) K/mm3 Basophils # (Manual) (0.0-0.1) K/mm3 Metamyelocytes # K/mm3 Myelocytes # K/mm3 Promyelocytes # K/mm3 Blast Cells # K/mm3 WBC Morphology Hypersegmented Neuts Hyposegmented Neuts Hypogranular Neuts Smudge Cells Toxic Granulation Toxic Vacuolation Dohle Bodies Pelger-Huet Anomaly Mary Kay Rods Platelet Estimate Clumped Platelets Plt Clumps, EDTA Large Platelets Giant Platelets Platelet Satelliting Plt Morphology Comment RBC Morphology Dimorphic RBCs Polychromasia Hypochromasia Poikilocytosis Anisocytosis Microcytosis Macrocytosis Spherocytes Pappenheimer Bodies Sickle Cells Target Cells Tear Drop Cells Ovalocytes Helmet Cells Richardson-[place] Bodies Gilbert Rings Karla Cells Bite Cells Crenated Cell Elliptocytes Acanthocytes (Spur) Rouleaux Hemoglobin C Crystals Schistocytes Malaria parasites Jim Bodies Hem Pathologist Commnt VBG pH 7.395 (7.320-7.420) Sodium (137-145) mmol/L Potassium (3.6-5.0) mmol/L Chloride (98-107) mmol/L Carbon Dioxide (22-30) mmol/L Anion Gap mmol/L BUN (7-17) mg/dL Creatinine (0.7-1.2) mg/dL Estimated GFR ml/min BUN/Creatinine Ratio % Glucose (65-100) mg/dL Lactic Acid (0.7-2.0) mmol/L Calcium (8.4-10.2) mg/dL Total Bilirubin (0.1-1.2) mg/dL AST (5-40) units/L ALT (7-56) units/L Alkaline Phosphatase (35-129) units/L Total Protein (6.3-8.2) g/dL Albumin (3.9-5) g/dL Albumin/Globulin Ratio % Urine Color Smiley (Yellow) Urine Turbidity Cloudy (Clear) Urine pH 5.0 (5.0-7.0) Ur Specific Jenner 1.017 (1.003-1.030) Urine Protein >500 (Negative) mg/dL Urine Glucose (UA) >=500 (Negative) mg/dL Urine Ketones Neg (Negative) mg/dL Urine Blood Mod (Negative) Urine Nitrite Neg (Negative) Urine Bilirubin Neg (Negative) Urine Urobilinogen < 2.0 (<2.0) mg/dL Ur Leukocyte Esterase Mod (Negative) Urine WBC (Auto) > 182.0 H (0.0-6.0) /HPF Urine RBC (Auto) 11.0 (0.0-6.0) /HPF U Epithel Cells (Auto) 8.0 (0-13.0) /HPF Urine Bacteria (Auto) 1+ (Negative) /HPF Urine WBC Clumps 3+ /HPF Hyaline Casts 5 /LPF Urine Mucus 1+ /HPF Urine Yeast (Budding) 2+ /HPF - Medical Decision Making Patient is HIV +38-year-old female who has a recurrent urinary tract infection. Patient's lactic acid is elevated. Patient be admitted to the hospitalist service for further IV antibiotics. Critical care attestation.: If time is entered above; I have spent that time in minutes in the direct care of this critically ill patient, excluding procedure time. ED Disposition Clinical Impression: Hidradenitis suppurativa Diabetes Qualifiers: Diabetes mellitus type: other specified (including SOCO) Diabetes mellitus mcfp insulin use: unspecified pot filler insulin use status Diabetes mellitus complication status: without complication Qualified Code(s): E13.9 - Other specified diabetes mellitus without complications HIV (human immunodeficiency virus infection) Qualifiers: HIV symptom status: unspecified Qualified Code(s): B20 - Human immunodeficiency virus [HIV] disease Acute cystitis Qualifiers: Hematuria presence: without hematuria Qualified Code(s): N30.00 - Acute cystitis without hematuria Sepsis Qualifiers: Sepsis type: Escherichia coli Sepsis acute organ dysfunction status: without acute organ dysfunction Qualified Code(s): A41.51 - Sepsis due to Escherichia coli [E. coli] Disposition: OP ADMIT IP TO THIS HOSP Is pt being admited?: Yes Does the pt Need Aspirin: No Condition: Stable Time of Disposition: 22:24
[2018-12-03] MEDS ORDERED: TORADOL IV ONE (22:41)
[2018-12-03] MEDS ORDERED: ZOFRAN IV PRN (22:49)
[2018-12-03] MEDS ORDERED: NACL 0.9% 1000 ML 1,000 ML IV SCH ×2 (23:00)
--- NOTE | 2018-12-03 23:55 | Cat Scan Report ---
CT ABDOMEN AND PELVIS WITHOUT CONTRAST INDICATION: RIGHT FLANK PAIN WITH SEPSIS R/O PYELONEPHRITIS. TECHNIQUE: Axial CT images were obtained through the abdomen and pelvis without IV contrast. All CT scans at [facility] location are performed using CT dose reduction for ALARA by means of automated exposure control. COMPARISON: CT abdomen and pelvis 11/10/2018 FINDINGS: LOWER CHEST: Linear bibasilar scarring, unchanged LIVER: No significant abnormality. GALLBLADDER: Surgically absent BILE DUCTS: No significant abnormality. PANCREAS: No significant abnormality. SPLEEN: No significant abnormality. ADRENALS: No significant abnormality. RIGHT KIDNEY and URETER: No significant abnormality. 2.2 cm right renal cyst, unchanged LEFT KIDNEY and URETER: Obstructing 3 mm left proximal ureteral stone at L3-4 with mild left hydronep hrosis Nonobstructing 7 mm left intrarenal stone. Small 1 cm left renal cyst. STOMACH and SMALL BOWEL: No significant abnormality. COLON: No significant abnormality. APPENDIX: No significant abnormality. PERITONEUM: No free fluid. No free air. No fluid collection. LYMPH NODES: No significant adenopathy. AORTA and ARTERIES: No significant abnormality. IVC and VEINS: No significant abnormality. URINARY BLADDER: Thick-walled bladder which is partially collapsed suggestive for cystitis REPRODUCTIVE ORGANS: No significant abnormality. ADDITIONAL FINDINGS: None. SKELETAL SYSTEM: No significant abnormality. IMPRESSION: 1. Obstructing 3 mm left proximal ureteral stone with mild left hydronephrosis. 2. Thick-walled bladder characteristic for probable cystitis 3. Left nephrolithiasis. Signer Name: Dejon Frazier MD Signed: 12/03/2018 11:50 PM Workstation Name: [id number]
[2018-12-04] MEDS ORDERED: NACL 0.9% 500 ML 500 ML ONE (01:35)
[2018-12-04] MEDS ORDERED: MORPHINE ONE (01:35)
[2018-12-04] MEDS ORDERED: TORADOL IV ONE (01:36)
[2018-12-04] MEDS ORDERED: TORADOL ONE (01:41)
[2018-12-04] MEDS: MORPHINE IV PRN ×3 (02:55→18:18)
[2018-12-04] MEDS ORDERED: D50W (25GM) Syringe IV PRN (04:44)
[2018-12-04] MEDS ORDERED: ZOSYN/NS 3.375GM/50ML 3.375 GM/50 ML BAG IV SCH (06:00)
--- NOTE | 2018-12-04 06:23 | History and Physical Report ---
CHIEF COMPLAINT: Fever and palpitation. Other complaints include chills and right flank pain going on for about 7 days. HISTORY OF PRESENT ILLNESS: The patient is a 38-year-old female who is in and out of hospital because of recurrent urinary tract infection and draining abscess in the groin area who is presenting with fever, tachycardia, and chills. Also, the patient is complaining about painful urination and right flank pain. There is no history of nausea or vomiting, and there is no history of shortness of breath or cough. The patient recently finished a course of Levaquin for urinary tract infection and presented again with fever and chills. PAST MEDICAL HISTORY: Pertinent for hypertension, diabetes mellitus. Also, the patient has past history of anxiety and depression, HIV infection with noncompliance, high cholesterol. Also, the patient has past history of recurrent urinary tract infection with sepsis. Also, there is past history of tobacco dependence, recurrent skin boils, bilateral groin hidradenitis. PAST SURGICAL HISTORY: Pertinent for D and C, insulin pump placement, total hysterectomy, removal of boil in the right inner thigh. FAMILY HISTORY: Reviewed and noncontributory. SOCIAL HISTORY: The patient smokes cigarette, does not drink alcohol and does not use illicit drugs. MEDICATIONS: The patient's home medications include Lipitor 40 mg at bedtime, Triumeq 600/50/300 mg 1 by mouth daily, Abilify 15 mg by mouth daily, lithium carbonate 300 mg by mouth twice daily, mirtazapine 45 mg by mouth at bedtime, Wellbutrin 150 mg by mouth daily, Lopressor 25 mg by mouth twice daily, petrolatum or white Vaseline lip therapy one application topical as directed, Norvasc 10 mg by mouth daily, ibuprofen 800 mg by mouth every 8 hours as needed for fever and pain, Novolin 70/30 insulin 30 units subcutaneously daily ____, Levaquin 750 mg by mouth daily. ALLERGIES: THE PATIENT IS ALLERGIC TO IODINE, SULFAMETHOXAZOLE, TRIMETHOPRIM, METFORMIN, AND SEAFOOD. REVIEW OF SYSTEMS: CONSTITUTIONAL: There is fever, there are chills, but no diaphoresis. HEENT: There is no headache or sore throat. CARDIOVASCULAR SYSTEM: There is no chest pain or orthopnea. There is palpitation. RESPIRATORY SYSTEM: There is no shortness of breath or cough. GASTROINTESTINAL SYSTEM: There is no nausea, no vomiting, no abdominal pain, diarrhea or constipation. NEUROLOGICAL SYSTEM: There is no numbness, no dizziness, no altered mental status. MUSCULOSKELETAL SYSTEM: There is no joint pain or swelling. DERMATOLOGICAL SYSTEM: There is no skin rash or itching. GENITOURINARY SYSTEM: There is dysuria and painful micturition. There is right flank pain, but no hematuria. Rest of system review is normal. PHYSICAL EXAMINATION: GENERAL: At the time of exam, the patient was found to be alert, oriented x 3 and not in acute distress. VITAL SIGNS: At the initial time of presentation shows temperature of 102.9 degrees Fahrenheit, pulse of 130, respirations 18, blood pressure 101/52, O2 sat of 100% on room air. HEENT: Showed pupils to be equal, round, reactive to light and accommodating. Extraocular muscles are intact. NECK: Supple with no JVD or carotid bruit. CARDIOVASCULAR SYSTEM: Show normal first and second heart sounds with rapid rate, but no gallops or murmurs. RESPIRATORY SYSTEM: Showed good air entry on both sides of the lungs with no abnormal breath sounds. GASTROINTESTINAL SYSTEM: Showed abdomen to be full, soft, nontender with no organomegaly or rigidity. NEUROLOGIC: Shows no focal deficit. MUSCULOSKELETAL SYSTEM: Showed no joint swelling or tenderness. DERMATOLOGICAL SYSTEM: Showed some old area of cellulitis in the right groin area. GENITOURINARY SYSTEM: Showed right costovertebral angle tenderness. PERTINENT LABORATORY AND IMAGING STUDIES: The patient had chest x-ray done and chest x-ray shows no acute findings. Also, the patient has had CT of the abdomen and pelvis done, which shows obstructing 3 mm left proximal ureteral stone with mild left hydronephrosis. There is finding of thick-walled bladder, characteristic for probable cystitis according to the radiologist. There is also finding of left nephrolithiasis. LAB RESULTS: The patient's lab result shows CBC with normal white count, normal hemoglobin and normal hematocrit with CBC differential showing elevated segmented neutrophil count of 88%. The patient's chemistry showed low sodium level of 136 with low CO2 of 20 and high glucose level of 371 and the patient's anion gap is 18. The patient's lactic acid level was high with a value of 2.7 and liver transaminases show high AST level with high ALT of 152 and elevated alkaline phosphatase of 213. The patient's urinalysis shows sandra colored cloudy urine with moderately elevated urine leukocyte esterase and negative urine nitrite with high urine wbc's of greater than 182 and high urine rbc's of 11 and 1+ bacteria. DIAGNOSES: 1. Recurrent urinary tract infection. 2. Sepsis. 3. Left kidney stone with mild hydronephrosis. PLAN OF CARE: 1. The patient will be admitted to telemetry. 2. The patient will be placed on IV normal saline as maintenance fluid running at 125 mL an hour for treatment of sepsis having received the required boluses in the Emergency Room. 3. The patient will be on IV Zosyn 4.5 grams q. 8 hours. 4. The patient will be on IV Levaquin 750 mg daily. 5. The patient will be on Tylenol 650 mg by mouth every 4 hours as needed for fever and chills. 6. The patient will be on IV Zofran 4 mg every 8 hours for nausea and vomiting and will be on IV morphine 2 mg every 4 hours for pain. 7. The patient will have serial lactic acid checked every 4 hours x 2 more levels. 8. The patient will be on Accu-Chek before meals and at bedtime, followed by low-dose sliding scale coverage using regular insulin. 9. The patient will have Urology consult when available since there is no Urology consult today for management of the left kidney stone with mild hydronephrosis. JOB# [id number] [facility]
[2018-12-04] MEDS: ZOSYN/NS 4.5GM/100ML 4.5 GM/100 ML VIAL IV SCH ×3 (08:34→21:51)
[2018-12-04] MEDS: HumuLIN R SUB-Q SCH ×4 (10:31→21:58)
[2018-12-04] MEDS: LEVAQUIN 750MG/150ML 750 MG/150 ML BAG IV SCH (13:41)
[2018-12-04] MEDS: HEPARIN SUB-Q SCH ×2 (13:42→21:56)
[2018-12-04] MEDS: TYLENOL PO PRN (13:54)
--- NOTE | 2018-12-04 16:17 | Progress Note ---
Assessment and Plan - Patient Problems (1) Acute cystitis Current Visit: Yes Status: Acute Qualifiers: Hematuria presence: without hematuria Qualified Code(s): N30.00 - Acute cystitis without hematuria Plan to address problem: Seen with cystitis and UTI. Recurrent most likely secondary to underlying renal stone. We'll continue current antibiotic treatments. Patient remains febrile will refuse Tylenol and labs at times. MAXIMUM TEMPERATURE is 103.3 present continue Zosyn and Levaquin follow culture data (2) Diabetes Current Visit: Yes Status: Acute Qualifiers: Diabetes mellitus type: other specified (including SCOO) Diabetes mellitus [facility] insulin use: unspecified emt intermediate insulin use status Diabetes mellitus complication status: without complication Qualified Code(s): E13.9 - Other specified diabetes mellitus without complications Plan to address problem: Remains uncontrolled. We will add long-acting insulin and continue sliding- scale readings. Patient is eating. (3) HIV (human immunodeficiency virus infection) Current Visit: Yes Status: Acute Qualifiers: HIV symptom status: unspecified Qualified Code(s): B20 - Human immunodefici ency virus [HIV] disease Plan to address problem: Restart antiretroviral medications. Patient remains sick fever. Hypotension. Hold antihypertensive medications. (4) Nicotine dependence Current Visit: No Status: Acute Plan to address problem: Nicotine patch one allowed (5) Obesity hypoventilation syndrome Current Visit: No Status: Acute Plan to address problem: Watch oxygenation closely. Patient without O2 no oxygenating well. (6) Pyelonephritis Current Visit: No Status: Acute (7) Hypertension Current Visit: Yes Status: Acute Plan to address problem: We'll hold antihypertensive medications. Since blood pressure low at this time. History Interval history: Patient 38-year-old recurrent UTI or renal stones diagnosed this admission. Lying in bed pain fairly well controlled. Patient often refuses vitals and Tylenol despite fever. Hospitalist Physical - Constitutional Vitals: Temp Pulse Resp BP Pulse Ox 103.0 F H 125 H 20 104/57 96 12/04/18 11:41 12/04/18 11:41 12/04/18 11:41 12/04/18 11:41 12/04/18 11:41 General appearance: Present: no acute distress - EENT Eyes: Present: PERRL, EOM intact. Absent: scleral icterus ENT: hearing intact, clear oral mucosa, dentition normal - Neck Neck: Present: normal ROM - Respiratory Respiratory: bilateral: CTA - Cardiovascular Rhythm: regular Heart Sounds: Present: S1 & S2 - Extremities Extremities: no ischemia, pulses intact, pulses symmetrical, No edema, normal temperature, normal color, Full ROM - Abdominal General gastrointestinal: soft, non-tender, non-distended, distended, rigid, normal bowel sounds Localized gastrointestinal: tender: suprapubic - Integumentary Integumentary: Present: clear, warm, dry - Psychiatric Psychiatric: appropriate mood/affect, intact judgment & insight Results - Labs CBC & Chem 7: 12/03/18 20:17 12/03/18 20:17 Labs: Laboratory Last Values WBC 5.4 K/mm3 (4.5-11.0) 12/03/18 20:17 RBC 4.21 M/mm3 (3.65-5.03) 12/03/18 20:17 Hgb 12.9 gm/dl (10.1-14.3) 12/03/18 20:17 Hct 38.5 % (30.3-42.9) 12/03/18 20:17 MCV 92 fl (79-97) 12/03/18 20:17 MCH 31 pg (28-32) 12/03/18 20:17 MCHC 34 % (30-34) 12/03/18 20:17 RDW 15.3 % (13.2-15.2) H 12/03/18 20:17 Plt Count 156 K/mm3 (140-440) 12/03/18 20:17 Add Manual Diff Complete 12/03/18 20:17 Total Counted 100 12/03/18 20:17 Seg Neutrophils % Supervisor Extruding Department 12/03/18 20:17 Seg Neuts % (Manual) 88.0 % (40.0-70.0) H 12/03/18 20:17 0 % 12/03/18 20:17 10.0 % (13.4-35.0) L 12/03/18 20:17 Reactive Lymphs % (Man) 0 % 12/03/18 20:17 2.0 % (0.0-7.3) 12/03/18 20:17 0 % (0.0-4.3) 12/03/18 20:17 0 % (0.0-1.8) 12/03/18 20:17 0 % 12/03/18 20:17 0 % 12/03/18 20:17 0 % 12/03/18 20:17 0 % 12/03/18 20:17 Nucleated RBC % Not Reportable 12/03/18 20:17 Seg Neutrophils # Man 4.8 K/mm3 (1.8-7.7) 12/03/18 20:17 Band Neutrophils # 0.0 K/mm3 12/03/18 20:17 0.5 K/mm3 (1.2-5.4) L 12/03/18 20:17 Abs React Lymphs (Man) 0.0 K/mm3 12/03/18 20:17 0.1 K/mm3 (0.0-0.8) 12/03/18 20:17 0.0 K/mm3 (0.0-0.4) 12/03/18 20:17 0.0 K/mm3 (0.0-0.1) 12/03/18 20:17 0.0 K/mm3 12/03/18 20:17 0.0 K/mm3 12/03/18 20:17 0.0 K/mm3 12/03/18 20:17 Blast Cells # 0.0 K/mm3 12/03/18 20:17 WBC Morphology Not Reportable 12/03/18 20:17 Hypersegmented Neuts Not Reportable 12/03/18 20:17 Hyposegmented Neuts Not Reportable 12/03/18 20:17 Hypogranular Neuts Not Reportable 12/03/18 20:17 Not Reportable 12/03/18 20:17 Not Reportable 12/03/18 20:17 Not Reportable 12/03/18 20:17 Not Reportable 12/03/18 20:17 Not Reportable 12/03/18 20:17 Not Reportable 12/03/18 20:17 Not Reportable 12/03/18 20:17 Not Reportable 12/03/18 20:17 Plt Clumps, EDTA Not Reportable 12/03/18 20:17 Not Reportable 12/03/18 20:17 Not Reportable 12/03/18 20:17 Not Reportable 12/03/18 20:17 Plt Morphology Comment Not Reportable 12/03/18 20:17 RBC Morphology Normal 12/03/18 20:17 Dimorphic RBCs Not Reportable 12/03/18 20:17 Not Reportable 12/03/18 20:17 Not Reportable 12/03/18 20:17 Not Reportable 12/03/18 20:17 Not Reportable 12/03/18 20:17 Not Reportable 12/03/18 20:17 Not Reportable 12/03/18 20:17 Not Reportable 12/03/18 20:17 Not Reportable 12/03/18 20:17 Not Reportable 12/03/18 20:17 Not Reportable 12/03/18 20:17 Not Reportable 12/03/18 20:17 Not Reportable 12/03/18 20:17 Not Reportable 12/03/18 20:17 Not Reportable 12/03/18 20:17 Not Reportable 12/03/18 20:17 Not Reportable 12/03/18 20:17 Not Reportable 12/03/18 20:17 Not Reportable 12/03/18 20:17 Not Reportable 12/03/18 20:17 Acanthocytes (Spur) Not Reportable 12/03/18 20:17 Rouleaux Not Reportable 12/03/18 20:17 Not Reportable 12/03/18 20:17 Not Reportable 12/03/18 20:17 Not Reportable 12/03/18 20:17 Not Reportable 12/03/18 20:17 Hem Pathologist Commnt No 12/03/18 20:17 VBG pH 7.395 (7.320-7.420) 12/03/18 20:17 Sodium 136 mmol/L (137-145) L 12/03/18 20:17 Potassium 3.8 mmol/L (3.6-5.0) 12/03/18 20:17 Chloride 98.7 mmol/L (98-107) 12/03/18 20:17 Carbon Dioxide 20 mmol/L (22-30) L 12/03/18 20:17 21 mmol/L 12/03/18 20:17 BUN 18 mg/dL (7-17) H 12/03/18 20:17 1.2 mg/dL (0.7-1.2) 12/03/18 20:17 Estimated GFR 51 ml/min 12/03/18 20:17 15 % 12/03/18 20:17 Glucose 371 mg/dL (65-100) H 12/03/18 20:17 POC Glucose 353 (70-105) H 12/03/18 20:31 Lactic Acid 3.80 mmol/L (0.7-2.0) H* 12/04/18 01:45 Calcium 9.3 mg/dL (8.4-10.2) 12/03/18 20:17 0.50 mg/dL (0.1-1.2) 12/03/18 20:17 AST 214 units/L (5-40) H 12/03/18 20:17 ALT 152 units/L (7-56) H 12/03/18 20:17 213 units/L (35-129) H 12/03/18 20:17 7.9 g/dL (6.3-8.2) 12/03/18 20:17 3.5 g/dL (3.9-5) L 12/03/18 20:17 0.8 % 12/03/18 20:17 Smiley (Yellow) 12/03/18 21:33 Cloudy (Clear) 12/03/18 21:33 5.0 (5.0-7.0) 12/03/18 21:33 Ur Specific [place] 1.017 (1.003-1.030) 12/03/18 21:33 >500 mg/dL (Negative) 12/03/18 21:33 >=500 mg/dL (Negative) 12/03/18 21:33 Neg mg/dL (Negative) 12/03/18 21:33 Mod (Negative) 12/03/18 21:33 Neg (Negative) 12/03/18 21:33 Neg (Negative) 12/03/18 21:33 < 2.0 mg/dL (<2.0) 12/03/18 21:33 Ur Leukocyte Esterase Mod (Negative) 12/03/18 21:33 > 182.0 /HPF (0.0-6.0) H 12/03/18 21:33 11.0 /HPF (0.0-6.0) 12/03/18 21:33 U Epithel Cells (Auto) 8.0 /HPF (0-13.0) 12/03/18 21:33 1+ /HPF (Negative) 12/03/18 21:33 3+ /HPF 12/03/18 21:33 Hyaline Casts 5 /LPF 12/03/18 21:33 1+ /HPF 12/03/18 21:33 2+ /HPF 12/03/18 21:33 Active Medications - Current Medications Current Medications: Generic Name Dose Route Start Last Admin Trade Name Freq PRN Reason Stop Dose Admin Acetaminophen 650 mg 12/03/18 22:48 12/04/18 13:54 Tylenol PO 650 mg Q4H PRN Administration Fever >101 Dextrose 50 ml 12/04/18 04:44 D50w (25gm) Syringe IV PRN PRN Hypoglycemia Heparin Sodium (Porcine) 5,000 unit 12/04/18 10:00 12/04/18 13:42 Heparin SUB-Q 5,000 unit Q12HR [facility] Administration Levofloxacin/Dextrose 750 mg in 150 mls @ 100 mls/hr 12/04/18 10:00 12/04/18 13:41 Levaquin 750mg/150ml IV 100 mls/hr Q24HR [facility] Administration Protocol Sodium Chloride 1,000 mls @ 150 mls/hr 12/03/18 23:00 12/04/18 02:55 Nacl 0.9% 1000 Ml IV 150 mls/hr DIRECT [facility] Administration Piperacillin Sod/Tazobactam Sod 4.5 gm in 100 mls @ 200 mls/hr 12/04/18 06:00 12/04/18 08:34 Zosyn/Ns 4.5gm/100ml IV 200 mls/hr Q8HR [facility] Administration Protocol Insulin Human Regular 0 units 12/04/18 07:30 12/04/18 14:23 Humulin R SUB-Q Not Given AC [facility] Protocol Insulin Human Regular 0 units 12/04/18 22:00 Humulin R SUB-Q QHS [facility] Protocol Morphine Sulfate 2 mg 12/03/18 22:50 12/04/18 13:41 Morphine IV 2 mg Q4H PRN Administration Pain, Moderate (4-6) Ondansetron HCl 4 mg 12/03/18 22:49 12/04/18 05:26 Zofran IV 4 mg Q8H PRN Administration Nausea And Vomiting
[2018-12-04] MEDS ORDERED: NON-FORMULARY (Abacavir/Dolutegravir/Lamivudi [Triumeq 600-50-300 Mg Tablet] 1 EACH) PO SCH (16:30)
[2018-12-04] MEDS ORDERED: REGLAN PO PRN (17:07)
[2018-12-04] MEDS: REGLAN IV PRN (18:12)
[2018-12-04] MEDS ORDERED: TYLENOL PR ONE (19:36)
[2018-12-04] MEDS ORDERED: TYLENOL PR PRN (19:37)
[2018-12-04] MEDS: WELLBUTRIN XL PO SCH (21:24)
[2018-12-04] MEDS: ABILIFY PO SCH (21:24)
[2018-12-04] MEDS: ESKALITH PO SCH (21:25)
[2018-12-04] MEDS: EPIVIR PO SCH (21:25)
[2018-12-04] MEDS: ZIAGEN PO SCH (21:25)
[2018-12-04] MEDS: TIVICAY PO SCH (21:25)
[2018-12-04] MEDS: REMERON PO SCH (21:26)
[2018-12-04] MEDS: SODIUM BICARBONATE 150 MEQ in D5W 1,000 ML IV SCH (23:57)
[2018-12-05] MEDS: REGLAN IV PRN ×3 (00:01→23:15)
[2018-12-05] MEDS: MORPHINE IV PRN ×5 (00:02→22:36)
[2018-12-05] MEDS: TYLENOL PO PRN ×3 (02:46→17:10)
[2018-12-05] MEDS: ZOSYN/NS 4.5GM/100ML 4.5 GM/100 ML VIAL IV SCH ×3 (06:43→22:23)
[2018-12-05] MEDS: LEVAQUIN 750MG/150ML 750 MG/150 ML BAG IV SCH (09:16)
[2018-12-05] MEDS: HumuLIN R SUB-Q SCH ×4 (09:17→22:15)
[2018-12-05] MEDS: HEPARIN SUB-Q SCH ×2 (09:18→22:16)
[2018-12-05] MEDS: TIVICAY PO SCH ×2 (09:20→09:40)
[2018-12-05] MEDS: ESKALITH PO SCH ×2 (09:20→09:34)
[2018-12-05] MEDS: ZIAGEN PO SCH (09:20)
[2018-12-05] MEDS: ABILIFY PO SCH ×2 (09:20→09:39)
[2018-12-05] MEDS: EPIVIR PO SCH ×2 (09:20→09:40)
[2018-12-05] MEDS: WELLBUTRIN XL PO SCH ×2 (09:20→09:41)
[2018-12-05 12:06] LABS: Hepatitis C Virus Antibody Non-Reactive (NonReactive)
[2018-12-05 12:07] LABS: Hepatitis B Surface Antigen Non-Reactive (Negative)
--- NOTE | 2018-12-05 14:40 | Consultation ---
History of Present Illness - Reason for Consult Consult date: 12/05/18 - History of Present Illness NEW TO OUR SERVICE Patient is a 38-year-old female who is presenting with dysuria as well as high fever. Patient's been in and out of the hospital quite frequently over the last 2 months secondary to recurrent UTI as well as hidradenitis (appears related to uncontrolled Diabetes). Patient has had multiple I&D's. Patient ended a course of Levaquin on 11/20/2018 for UTI. Her last urine cultures grew Escherichia coli and Proteus. Patient is complaining of dysuria and some supra pubic discomfort. Patient states she also is continued to have some draining of small abscesses in the left groin right buttock and left axilla. Please see the below discharge summary from her last discharge from 11/11/2018 Hospital course: 38 year old female with a past medical history of HIV infection on Triumeg, sees Dr. Pedro Ponce ( last VL <20, CD4 319), non- compliant with ART therapy, asthma, depression, hyperlipedemia,obesity, hypertension, diabetes, tobacco dependency, recurrent skin boils, bilateral groin hidradenitis most recently admitted on 10/24/18 for Sepsis, etiology left groin/thigh abscess on top of hidradenitis and Proteus, E.coli UTI. Wound cultures from 06/02/18 and 06/21/18 both grew MSSA and group B strep. She presents to the ED on 11/10/18 with complaints of right flank pain, right lower quadrant pain, fever, chills, nausea/vomiting and dysuria. Today reports 2 months rt flank pain + hx of neuropathy CTAP (reviewed several over last 12 months) - small left kidney stone (I don't see a ureteral stone or hydro------suggest misread) ABD SOFT SEVERAL TATOOS ON BODY A/P left kidney stone - non obstructing (incidental fiinding) uncontrolled Diabetes with neuropathy rt flank pain no surgical intervention needed Medications and Allergies Allergies Allergy/AdvReac Type Severity Reaction Status Date / Time iodine Allergy Swelling Verified 10/22/18 17:47 sulfamethoxazole Allergy Rash Verified 10/22/18 17:47 [From Bactrim] trimethoprim [From Bactrim] Allergy Rash Verified 10/22/18 17:47 metformin AdvReac Nausea Verified 10/22/18 17:47 seafood Allergy Rash Uncoded 02/16/18 13:38 Home Medications Medication Instructions Recorded Confirmed Last Taken Type Atorvastatin [Lipitor] 40 mg PO HS 04/13/13 12/04/18 09/08/17 History Abacavir/Dolutegravir/Lamivudi 1 each PO DAILY 07/10/15 12/04/18 09/08/17 History [Triumeq 600-50-300 mg Tablet] ARIPiprazole [Abilify TAB] 15 mg PO QDAY 06/02/18 12/04/18 Unknown History [place] Carbonate [Eskalith] 300 mg PO BID 06/02/18 12/04/18 Unknown History Mirtazapine 45 mg PO QHS 06/02/18 12/04/18 Unknown History buPROPion XL [Wellbutrin XL] 150 mg PO QDAY 06/02/18 12/04/18 Unknown History Metoprolol [Lopressor TAB] 25 mg PO BID #60 tablet 10/27/18 12/04/18 Unknown Rx amLODIPine [Norvasc] 10 mg PO QDAY #30 tablet 10/27/18 12/04/18 Unknown Rx Insulin NPH/Regular [NovoLIN 70/30] 30 unit SUB-Q QDDIAB #10 ml 11/14/18 12/04/18 Unknown Rx Gabapentin [Neurontin] 800 mg PO TID 12/04/18 12/04/18 Unknown History Sitagliptin Phosphate [Januvia] 100 mg PO DAILY 12/04/18 12/04/18 Unknown History Active Meds: Active Medications Abacavir Sulfate (Ziagen) 600 mg PO QDAY [facility] Last Admin: 12/05/18 09:20 Dose: 600 mg Documented by: Acetaminophen (Tylenol) 650 mg PO Q4H PRN PRN Reason: Fever >101 Last Admin: 12/05/18 09:19 Dose: 650 mg Documented by: Acetaminophen (Tylenol) 650 mg [place] Q6H PRN PRN Reason: Pain, Mild (1-3) Aripiprazole (Abilify) 15 mg PO QDAY [facility] Last Admin: 12/05/18 09:39 Dose: Not Given Documented by: Bupropion HCl (Wellbutrin Xl) 150 mg PO QDAY [facility] Last Admin: 12/05/18 09:41 Dose: Not Given Documented by: Dextrose (D50w (25gm) Syringe) 50 ml IV PRN PRN PRN Reason: Hypoglycemia Heparin Sodium (Porcine) (Heparin) 5,000 unit SUB-Q Q12HR [facility] Last Admin: 12/05/18 09:18 Dose: 5,000 unit Documented by: Levofloxacin/Dextrose (Levaquin 750mg/150ml) 750 mg in 150 mls @ 100 mls/hr IV Q24HR [facility]; Protocol Last Admin: 12/05/18 09:16 Dose: 100 mls/hr Documented by: Sodium Chloride (Nacl 0.9% 1000 Ml) 1,000 mls @ 150 mls/hr IV DIRECT [facility] Last Admin: 12/04/18 02:55 Dose: 150 mls/hr Documented by: Piperacillin Sod/Tazobactam Sod (Zosyn/Ns 4.5gm/100ml) 4.5 gm in 100 mls @ 200 mls/hr IV Q8HR [facility]; Protocol Last Admin: 12/05/18 14:00 Dose: 200 mls/hr Documented by: Sodium Bicarbonate 150 meq/ (Dextrose) 1,150 mls @ 42 mls/hr IV DIRECT [facility] Last Admin: 12/04/18 23:57 Dose: 42 mls/hr Documented by: Insulin Human Isoph/Insulin Regular (Humulin 70/30) 35 unit SUB-Q QDDIAB [facility] Last Admin: 12/05/18 12:51 Dose: 35 unit Documented by: Insulin Human Regular (Humulin R) 0 units SUB-Q AC [facility]; Protocol Last Admin: 12/05/18 12:51 Dose: 5 units Documented by: Insulin Human Regular (Humulin R) 0 units SUB-Q QHS [facility]; Protocol Last Admin: 12/04/18 21:58 Dose: 5 units Documented by: Lamivudine (Epivir) 300 mg PO QDAY [facility] Last Admin: 12/05/18 09:40 Dose: Not Given Documented by: [place] Carbonate (Eskalith) 300 mg PO BID [facility] Last Admin: 12/05/18 09:34 Dose: Not Given Documented by: Metoclopramide HCl (Reglan) 10 mg PO Q6H PRN PRN Reason: Nausea And Vomiting Metoclopramide HCl (Reglan) 10 mg IV Q6H PRN PRN Reason: Nausea And Vomiting Last Admin: 12/05/18 08:35 Dose: 10 mg Documented by: Mirtazapine (Remeron) 45 mg PO QHS [facility] Last Admin: 12/04/18 21:26 Dose: Not Given Documented by: Morphine Sulfate (Morphine) 2 mg IV Q4H PRN PRN Reason: Pain, Moderate (4-6) Last Admin: 12/05/18 14:00 Dose: 2 mg Documented by: Ondansetron HCl (Zofran) 4 mg IV Q8H PRN PRN Reason: Nausea And Vomiting Last Admin: 12/04/18 05:26 Dose: 4 mg Documented by: Exam - Constitutional Vitals: Temp Pulse Resp BP Pulse Ox 99.1 F 104 H 20 118/64 100 12/05/18 12:35 12/05/18 12:35 12/05/18 12:35 12/05/18 12:35 12/05/18 08:20 Results - Labs CBC & Chem 7: 12/03/18 20:17 12/03/18 20:17 Labs: Abnormal lab results 12/04/18 12/04/18 12/04/18 Range/Units 17:12 21:02 Unknown POC Glucose 461 H 378 H (70-105) Lactic Acid 3.00 H* (0.7-2.0) mmol/L 12/05/18 12/05/18 Range/Units 07:52 12:13 POC Glucose 392 H 432 H (70-105) Lactic Acid (0.7-2.0) mmol/L
--- NOTE | 2018-12-05 15:07 | Gastroenterology Consultation ---
History of Present Illness - Reason for Consult Consult date: 12/05/18 elevated liver enzymes Requesting physician: ROSELIA GALINDO - History of Present Illness This is a 38 yo female with pmh of HIV, recurrent UTI and hidradenitis, DM admitted for nausea/vomiting, dysuria and found to have cystitis and left kidney stone. GI consulted for elevated liver enzymes. Patient denies any prior h/o liver disease. Review of chart shows normal liver enzymes in October admission this year. No family hx of liver disease. She reports nausea/vomiting and lower abdominal pain for past 5 days. She has had frequent ED and admissions for recurrent UTI and hidradenitis. Has been on multiple antibiotics. No diarrhea. Medication list reviewed Past History Past Medical History: HIV/AIDS Past Surgical History: Other (wound surgery) Family history: hypertension Medications and Allergies Allergies Allergy/AdvReac Type Severity Reaction Status Date / Time iodine Allergy Swelling Verified 10/22/18 17:47 sulfamethoxazole Allergy Rash Verified 10/22/18 17:47 [From Bactrim] trimethoprim [From Bactrim] Allergy Rash Verified 10/22/18 17:47 metformin AdvReac Nausea Verified 10/22/18 17:47 seafood Allergy Rash Uncoded 02/16/18 13:38 Home Medications Medication Instructions Recorded Confirmed Last Taken Type Atorvastatin [Lipitor] 40 mg PO HS 04/13/13 12/04/18 09/08/17 History Abacavir/Dolutegravir/Lamivudi 1 each PO DAILY 07/10/15 12/04/18 09/08/17 History [Triumeq 600-50-300 mg Tablet] ARIPiprazole [Abilify TAB] 15 mg PO QDAY 06/02/18 12/04/18 Unknown History [place] Carbonate [Eskalith] 300 mg PO BID 06/02/18 12/04/18 Unknown History Mirtazapine 45 mg PO QHS 06/02/18 12/04/18 Unknown History buPROPion XL [Wellbutrin XL] 150 mg PO QDAY 06/02/18 12/04/18 Unknown History Metoprolol [Lopressor TAB] 25 mg PO BID #60 tablet 10/27/18 12/04/18 Unknown Rx amLODIPine [Norvasc] 10 mg PO QDAY #30 tablet 10/27/18 12/04/18 Unknown Rx Insulin NPH/Regular [NovoLIN 70/30] 30 unit SUB-Q QDDIAB #10 ml 11/14/18 12/04/18 Unknown Rx Gabapentin [Neurontin] 800 mg PO TID 12/04/18 12/04/18 Unknown History Sitagliptin Phosphate [Januvia] 100 mg PO DAILY 12/04/18 12/04/18 Unknown History Active Meds: Active Medications Abacavir Sulfate (Ziagen) 600 mg PO QDAY [facility] Last Admin: 12/05/18 09:20 Dose: 600 mg Documented by: Acetaminophen (Tylenol) 650 mg PO Q4H PRN PRN Reason: Fever >101 Last Admin: 12/05/18 09:19 Dose: 650 mg Documented by: Acetaminophen (Tylenol) 650 mg [place] Q6H PRN PRN Reason: Pain, Mild (1-3) Aripiprazole (Abilify) 15 mg PO QDAY [facility] Last Admin: 12/05/18 09:39 Dose: Not Given Documented by: Bupropion HCl (Wellbutrin Xl) 150 mg PO QDAY [facility] Last Admin: 12/05/18 09:41 Dose: Not Given Documented by: Dextrose (D50w (25gm) Syringe) 50 ml IV PRN PRN PRN Reason: Hypoglycemia Heparin Sodium (Porcine) (Heparin) 5,000 unit SUB-Q Q12HR [facility] Last Admin: 12/05/18 09:18 Dose: 5,000 unit Documented by: Levofloxacin/Dextrose (Levaquin 750mg/150ml) 750 mg in 150 mls @ 100 mls/hr IV Q24HR [facility]; Protocol Last Admin: 12/05/18 09:16 Dose: 100 mls/hr Documented by: Sodium Chloride (Nacl 0.9% 1000 Ml) 1,000 mls @ 150 mls/hr IV DIRECT [facility] Last Admin: 12/04/18 02:55 Dose: 150 mls/hr Documented by: Piperacillin Sod/Tazobactam Sod (Zosyn/Ns 4.5gm/100ml) 4.5 gm in 100 mls @ 200 mls/hr IV Q8HR [facility]; Protocol Last Admin: 12/05/18 14:00 Dose: 200 mls/hr Documented by: Sodium Bicarbonate 150 meq/ (Dextrose) 1,150 mls @ 42 mls/hr IV DIRECT [facility] Last Admin: 12/04/18 23:57 Dose: 42 mls/hr Documented by: Insulin Human Isoph/Insulin Regular (Humulin 70/30) 35 unit SUB-Q QDDIAB [facility] Last Admin: 12/05/18 12:51 Dose: 35 unit Documented by: Insulin Human Regular (Humulin R) 0 units SUB-Q AC [facility]; Protocol Last Admin: 12/05/18 12:51 Dose: 5 units Documented by: Insulin Human Regular (Humulin R) 0 units SUB-Q QHS [facility]; Protocol Last Admin: 12/04/18 21:58 Dose: 5 units Documented by: Lamivudine (Epivir) 300 mg PO QDAY [facility] Last Admin: 12/05/18 09:40 Dose: Not Given Documented by: [place] Carbonate (Eskalith) 300 mg PO BID [facility] Last Admin: 12/05/18 09:34 Dose: Not Given Documented by: Metoclopramide HCl (Reglan) 10 mg PO Q6H PRN PRN Reason: Nausea And Vomiting Metoclopramide HCl (Reglan) 10 mg IV Q6H PRN PRN Reason: Nausea And Vomiting Last Admin: 12/05/18 08:35 Dose: 10 mg Documented by: Mirtazapine (Remeron) 45 mg PO QHS [facility] Last Admin: 12/04/18 21:26 Dose: Not Given Documented by: Morphine Sulfate (Morphine) 2 mg IV Q4H PRN PRN Reason: Pain, Moderate (4-6) Last Admin: 12/05/18 14:00 Dose: 2 mg Documented by: Ondansetron HCl (Zofran) 4 mg IV Q8H PRN PRN Reason: Nausea And Vomiting Last Admin: 12/04/18 05:26 Dose: 4 mg Documented by: Review of Systems - Review of Systems All systems: negative Cardiovascular: no chest pain Gastrointestinal: abdominal pain, nausea, vomiting, no diarrhea Integumentary: rash Exam - Constitutional Vital Signs: Temp Pulse Resp BP Pulse Ox 99.1 F 104 H 20 118/64 100 12/05/18 12:35 12/05/18 12:35 12/05/18 12:35 12/05/18 12:35 12/05/18 08:20 General appearance: no acute distress - EENT Eyes: EOM intact ENT: hearing intact - Neck Neck: supple - Respiratory Respiratory: bilateral: CTA - Cardiovascular Rhythm: regular Heart Sounds: Present: S1 & S2 - Gastrointestinal General gastrointestinal: Present: soft, tender, non-distended - Integumentary Integumentary: Present: warm - Neurologic Neurological: alert and oriented x3 - Psychiatric Psychiatric: appropriate mood/affect - Labs CBC & Chem 7: 12/03/18 20:17 12/03/18 20:17 Lab Results: Laboratory Results - last 24 hr 12/04/18 12/04/18 12/04/18 17:12 21:02 Unknown POC Glucose 461 H 378 H Lactic Acid 3.00 H* Hepatitis A IgM Ab Hep Bs Antigen Hep B Core IgM Ab Hepatitis C Antibody 12/05/18 12/05/18 12/05/18 07:52 10:05 12:13 POC Glucose 392 H 432 H Lactic Acid Hepatitis A IgM Ab Non-reactive Hep Bs Antigen Non-reactive Hep B Core IgM Ab Non-reactive Hepatitis C Antibody Non-reactive Assessment and Plan # Elevated liver enzymes. - prior check during October admission with normal liver enzymes. - AST/ALT in 214/152 with normal bilirubin. - CT a/p with normal appearing liver. - may be due to viral illness as well as her current infection. - hepatitis acute viral panel negative. - CMP from today pending. Rec - monitor CMP and INR. - supportive care and treatment for infection. - will follow.
[2018-12-05 16:33] LABS: Albumin 2.7 g/dL (3.9-5); Calcium 8.8 mg/dL (8.4-10.2)
--- NOTE | 2018-12-05 17:51 | Progress Note ---
Assessment and Plan - Patient Problems (1) Acute cystitis Current Visit: Yes Status: Acute Qualifiers: Hematuria presence: without hematuria Qualified Code(s): N30.00 - Acute cystitis without hematuria Plan to address problem: Acute cystitis pyelonephritis. Patient still has fever. We'll continue IV antibiotics. Clinically patient has improved fever curve coming down somewhat but still has fever. spoke with urology no obstructing stone. No surgical intervention needed. No growth so far after 24 hours. 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 We'll increase Lantus to 30 units. Continue sliding- scale and advance accordingly. (3) HIV (human immunodeficiency virus infection) Current Visit: Yes Status: Acute Qualifiers: HIV symptom status: unspecified Qualified Code(s): B20 - Human immunodeficiency virus [HIV] disease Plan to address problem: pt refusing antiretroviral medications and is aware states she will see her infectious disease doctor. (4) Nicotine dependence Current Visit: No Status: Acute Plan to address problem: Nicotine patch one allowed (5) Obesity hypoventilation syndrome Current Visit: No Status: Acute Plan to address problem: Watch oxygenation closely. Patient without O2 no oxygenating well. (6) Pyelonephritis Current Visit: No Status: Acute (7) Hypertension Current Visit: Yes Status: Acute Plan to address problem: Meds were held yesterday now blood pressure appears to be normotensive to somewhat hypertensive we'll reintroduce one medication today amlodipine 10 mg 1 tab by mouth daily.. (8) Elevated transaminase level Current Visit: Yes Status: Acute Plan to address problem: Unsure of exact etiology possible infectious. Possible medication. GI consult. History Interval history: Patient feels much better today. Pain much improved. Still has fever however fever curve is down trending. Patient refused to take antiretroviral medicat ions. She is taking antibiotics now Tylenol and pain medications. All questions and concerns answered. Hospitalist Physical - Constitutional Vitals: Temp Pulse Resp BP Pulse Ox 102.6 F H 121 H 18 152/77 93 12/05/18 16:27 12/05/18 16:27 12/05/18 16:27 12/05/18 16:27 12/05/18 16:27 General appearance: Present: no acute distress - EENT Eyes: Present: PERRL, EOM intact ENT: hearing intact, clear oral mucosa, dentition normal - Neck Neck: Present: supple, normal ROM. Absent: enlarged thyroid, masses or JVD, cervical LAD - Respiratory Respiratory: bilateral: CTA - Cardiovascular Rhythm: regular - Extremities Extremities: no ischemia, pulses symmetrical, No edema, normal temperature, normal color Peripheral Pulses: within normal limits - Abdominal General gastrointestinal: soft, non-tender, normal bowel sounds - Integumentary Integumentary: Present: clear, warm, dry - Psychiatric Psychiatric: appropriate mood/affect, intact judgment & insight, memory intact Results - Labs CBC & Chem 7: 12/03/18 20:17 12/05/18 15:29 Labs: Laboratory Last Values WBC 5.4 K/mm3 (4.5-11.0) 12/03/18 20:17 RBC 4.21 M/mm3 (3.65-5.03) 12/03/18 20:17 Hgb 12.9 gm/dl (10.1-14.3) 12/03/18 20:17 Hct 38.5 % (30.3-42.9) 12/03/18 20:17 MCV 92 fl (79-97) 12/03/18 20:17 MCH 31 pg (28-32) 12/03/18 20:17 MCHC 34 % (30-34) 12/03/18 20:17 RDW 15.3 % (13.2-15.2) H 12/03/18 20:17 Plt Count 156 K/mm3 (140-440) 12/03/18 20:17 Add Manual Diff Complete 12/03/18 20:17 Total Counted 100 12/03/18 20:17 Seg Neutrophils % Field Associate 12/03/18 20:17 Seg Neuts % (Manual) 88.0 % (40.0-70.0) H 12/03/18 20:17 0 % 12/03/18 20:17 10.0 % (13.4-35.0) L 12/03/18 20:17 Reactive Lymphs % (Man) 0 % 12/03/18 20:17 2.0 % (0.0-7.3) 12/03/18 20:17 0 % (0.0-4.3) 12/03/18 20:17 0 % (0.0-1.8) 12/03/18 20:17 0 % 12/03/18 20:17 0 % 12/03/18 20:17 0 % 12/03/18 20:17 0 % 12/03/18 20:17 Nucleated RBC % Not Reportable 12/03/18 20:17 Seg Neutrophils # Man 4.8 K/mm3 (1.8-7.7) 12/03/18 20:17 Band Neutrophils # 0.0 K/mm3 12/03/18 20:17 0.5 K/mm3 (1.2-5.4) L 12/03/18 20:17 Abs React Lymphs (Man) 0.0 K/mm3 12/03/18 20:17 0.1 K/mm3 (0.0-0.8) 12/03/18 20:17 0.0 K/mm3 (0.0-0.4) 12/03/18 20:17 0.0 K/mm3 (0.0-0.1) 12/03/18 20:17 0.0 K/mm3 12/03/18 20:17 0.0 K/mm3 12/03/18 20:17 0.0 K/mm3 12/03/18 20:17 Blast Cells # 0.0 K/mm3 12/03/18 20:17 WBC Morphology Not Reportable 12/03/18 20:17 Hypersegmented Neuts Not Reportable 12/03/18 20:17 Hyposegmented Neuts Not Reportable 12/03/18 20:17 Hypogranular Neuts Not Reportable 12/03/18 20:17 Not Reportable 12/03/18 20:17 Not Reportable 12/03/18 20:17 Not Reportable 12/03/18 20:17 Not Reportable 12/03/18 20:17 Not Reportable 12/03/18 20:17 Not Reportable 12/03/18 20:17 Not Reportable 12/03/18 20:17 Not Reportable 12/03/18 20:17 Plt Clumps, EDTA Not Reportable 12/03/18 20:17 Not Reportable 12/03/18 20:17 Not Reportable 12/03/18 20:17 Not Reportable 12/03/18 20:17 Plt Morphology Comment Not Reportable 12/03/18 20:17 RBC Morphology Normal 12/03/18 20:17 Dimorphic RBCs Not Reportable 12/03/18 20:17 Not Reportable 12/03/18 20:17 Not Reportable 12/03/18 20:17 Not Reportable 12/03/18 20:17 Not Reportable 12/03/18 20:17 Not Reportable 12/03/18 20:17 Not Reportable 12/03/18 20:17 Not Reportable 12/03/18 20:17 Not Reportable 12/03/18 20:17 Not Reportable 12/03/18 20:17 Not Reportable 12/03/18 20:17 Not Reportable 12/03/18 20:17 Not Reportable 12/03/18 20:17 Not Reportable 12/03/18 20:17 Not Reportable 12/03/18 20:17 Not Reportable 12/03/18 20:17 Not Reportable 12/03/18 20:17 Not Reportable 12/03/18 20:17 Not Reportable 12/03/18 20:17 Not Reportable 12/03/18 20:17 Acanthocytes (Spur) Not Reportable 12/03/18 20:17 Rouleaux Not Reportable 12/03/18 20:17 Not Reportable 12/03/18 20:17 Not Reportable 12/03/18 20:17 Not Reportable 12/03/18 20:17 Not Reportable 12/03/18 20:17 Hem Pathologist Commnt No 12/03/18 20:17 VBG pH 7.395 (7.320-7.420) 12/03/18 20:17 Sodium 132 mmol/L (137-145) L 12/05/18 15:29 Potassium 4.1 mmol/L (3.6-5.0) 12/05/18 15:29 Chloride 99.4 mmol/L (98-107) 12/05/18 15:29 Carbon Dioxide 19 mmol/L (22-30) L 12/05/18 15:29 18 mmol/L 12/05/18 15:29 BUN 31 mg/dL (7-17) H 12/05/18 15:29 1.7 mg/dL (0.7-1.2) H 12/05/18 15:29 Estimated GFR 34 ml/min 12/05/18 15:29 18 % 12/05/18 15:29 Glucose 337 mg/dL (65-100) H 12/05/18 15:29 POC Glucose 317 (70-105) H 12/05/18 16:33 Lactic Acid 3.00 mmol/L (0.7-2.0) H* 12/04/18 Unknown Calcium 8.8 mg/dL (8.4-10.2) 12/05/18 15:29 0.60 mg/dL (0.1-1.2) 12/05/18 15:29 AST 37 units/L (5-40) 12/05/18 15:29 ALT 72 units/L (7-56) H 12/05/18 15:29 119 units/L (35-129) 12/05/18 15:29 7.6 g/dL (6.3-8.2) 12/05/18 15:29 2.7 g/dL (3.9-5) L 12/05/18 15:29 0.6 % 12/05/18 15:29 Smiley (Yellow) 12/03/18 21:33 Cloudy (Clear) 12/03/18 21:33 5.0 (5.0-7.0) 12/03/18 21:33 Ur Specific [place] 1.017 (1.003-1.030) 12/03/18 21:33 >500 mg/dL (Negative) 12/03/18 21:33 >=500 mg/dL (Negative) 12/03/18 21:33 Neg mg/dL (Negative) 12/03/18 21:33 Mod (Negative) 12/03/18 21:33 Neg (Negative) 12/03/18 21:33 Neg (Negative) 12/03/18 21:33 < 2.0 mg/dL (<2.0) 12/03/18 21:33 Ur Leukocyte Esterase Mod (Negative) 12/03/18 21:33 > 182.0 /HPF (0.0-6.0) H 12/03/18 21:33 11.0 /HPF (0.0-6.0) 12/03/18 21:33 U Epithel Cells (Auto) 8.0 /HPF (0-13.0) 12/03/18 21:33 1+ /HPF (Negative) 12/03/18 21:33 3+ /HPF 12/03/18 21:33 Hyaline Casts 5 /LPF 12/03/18 21:33 1+ /HPF 12/03/18 21:33 2+ /HPF 12/03/18 21:33 Hepatitis A IgM Ab Non-reactive (NonReactive) 12/05/18 10:05 Hep Bs Antigen Non-reactive (Negative) 12/05/18 10:05 Hep B Core IgM Ab Non-reactive (NonReactive) 12/05/18 10:05 Non-reactive (NonReactive) 12/05/18 10:05 Active Medications - Current Medications Current Medications: Generic Name Dose Route Start Last Admin Trade Name Freq PRN Reason Stop Dose Admin Abacavir Sulfate 600 mg 12/04/18 18:00 12/05/18 09:20 Ziagen PO 600 mg QDAY GRIS Administration Acetaminophen 650 mg 12/03/18 22:48 12/05/18 17:10 Tylenol PO 650 mg Q4H PRN Administration Fever >101 Acetaminophen 650 mg 12/04/18 19:37 Tylenol CO Q6H PRN Pain, Mild (1-3) Aripiprazole 15 mg 12/04/18 17:00 12/05/18 09:39 Abilify PO Not Given QDAY GRIS Bupropion HCl 150 mg 12/04/18 17:00 12/05/18 09:41 Wellbutrin Xl PO Not Given QDAY GRIS Dextrose 50 ml 12/04/18 04:44 D50w (25gm) Syringe IV PRN PRN Hypoglycemia Heparin Sodium (Porcine) 5,000 unit 12/04/18 10:00 12/05/18 09:18 Heparin SUB-Q 5,000 unit Q12HR GRIS Administration Levofloxacin/Dextrose 750 mg in 150 mls @ 100 mls/hr 12/04/18 10:00 12/05/18 09:16 Levaquin 750mg/150ml IV 100 mls/hr Q24HR GRIS Administration Protocol Sodium Chloride 1,000 mls @ 150 mls/hr 12/03/18 23:00 12/04/18 02:55 Nacl 0.9% 1000 Ml IV 150 mls/hr DIRECT GRIS Administration Piperacillin Sod/Tazobactam Sod 4.5 gm in 100 mls @ 200 mls/hr 12/04/18 06:00 12/05/18 14:00 Zosyn/Ns 4.5gm/100ml IV 200 mls/hr Q8HR GRIS Administration Protocol Sodium Bicarbonate 150 meq/ 1,150 mls @ 42 mls/hr 12/04/18 17:00 12/04/18 23:57 Dextrose IV 42 mls/hr DIRECT GRIS Administration Insulin Human Isoph/Insulin Regular 35 unit 12/05/18 11:00 12/05/18 12:51 Humulin 70/30 SUB-Q 35 unit QDDIAB GRIS Administration Insulin Human Regular 0 units 12/04/18 07:30 12/05/18 17:10 Humulin R SUB-Q 4 units AC GRIS Administration Protocol Insulin Human Regular 0 units 12/04/18 22:00 12/04/18 21:58 Humulin R SUB-Q 5 units QHS GRIS Administration Protocol Lamivudine 300 mg 12/04/18 18:00 12/05/18 09:40 Epivir PO Not Given QDAY [facility] [place] Carbonate 300 mg 12/04/18 22:00 12/05/18 09:34 Eskalith PO Not Given BID [facility] Metoclopramide HCl 10 mg 12/04/18 17:07 Reglan PO Q6H PRN Nausea And Vomiting Metoclopramide HCl 10 mg 12/04/18 17:08 12/05/18 08:35 Reglan IV 10 mg Q6H PRN Administration Nausea And Vomiting Mirtazapine 45 mg 12/04/18 22:00 12/04/18 21:26 Remeron PO Not Given QHS [facility] Morphine Sulfate 2 mg 12/03/18 22:50 12/05/18 14:00 Morphine IV 2 mg Q4H PRN Administration Pain, Moderate (4-6) Ondansetron HCl 4 mg 12/03/18 22:49 12/04/18 05:26 Zofran IV 4 mg Q8H PRN Administration Nausea And Vomiting
[2018-12-06] MEDS: ESKALITH PO SCH ×3 (00:10→23:05)
[2018-12-06] MEDS: REMERON PO SCH ×2 (00:11→23:05)
[2018-12-06] MEDS: MORPHINE IV PRN ×4 (05:42→22:52)
[2018-12-06] MEDS: ZOSYN/NS 4.5GM/100ML 4.5 GM/100 ML VIAL IV SCH (05:50)
[2018-12-06 07:57] LABS: Basophils % (Auto) 0.2 % (0.0-1.8); Eosinophils % (Auto) 0.5 % (0.0-4.3); Hematocrit 30.2 % (30.3-42.9); Hemoglobin 10.2 gm/dl (10.1-14.3); Lymphocytes # (Auto) 1.3 K/mm3 (1.2-5.4); Lymphocytes % (Auto) 24.4 % (13.4-35.0); Mean Corpuscular HGB Conc 34 % (30-34); Mean Corpuscular Volume 91 fl (79-97); Monocytes # (Auto) 0.3 K/mm3 (0.0-0.8); Monocytes % (Auto) 6.5 % (0.0-7.3); Red Blood Count 3.31 M/mm3 (3.65-5.03); Red Cell Distribution Width 15.2 % (13.2-15.2)
[2018-12-06] MEDS: HumuLIN R SUB-Q SCH ×4 (08:00→23:15)
[2018-12-06 08:11] LABS: Albumin 2.9 g/dL (3.9-5); Bilirubin,Direct 0.4 mg/dL (0-0.2); Calcium 9.1 mg/dL (8.4-10.2)
[2018-12-06 08:44] LABS: Platelet Count 63 K/mm3 (140-440)
[2018-12-06] MEDS: HEPARIN SUB-Q SCH ×2 (09:49→23:05)
[2018-12-06] MEDS: NON-FORMULARY (Abacavir/Dolutegravir/Lamivudi [Triumeq 600-50-300 Mg Tablet] 1 EACH) PO SCH (09:49)
[2018-12-06] MEDS: LEVAQUIN 750MG/150ML 750 MG/150 ML BAG IV SCH (09:54)
[2018-12-06] MEDS: REGLAN IV PRN ×3 (09:58→22:51)
[2018-12-06] MEDS: ABILIFY PO SCH (10:35)
[2018-12-06] MEDS: WELLBUTRIN XL PO SCH (10:35)
--- NOTE | 2018-12-06 10:58 | Progress Note ---
Assessment and Plan Assessment and plan: Patient is a 38 yo woman with a history of HIV on Triumeg, sees Dr. Pedro Ponce ( last VL <20, CD4 319), asthma, depression, hyperlipedemia, obesity, hypertension, diabetes, tobacco dependency, recurrent skin boils, bilateral groin hidradenitis most recently admitted on 10/24/18 for Sepsis, etiology left groin/thigh abscess due to hidradenitis.Her last urine cultures grew Escherichia coli and Proteus. Wound cultures from 06/02/18 and 06/21/18 both grew MSSA and group B strep. She presents to the ED on 11/10/18 with complaints of right flank pain, right lower quadrant pain, fever, chills, nausea/vomiting and dysuria. Patient states she also is continued to have some draining of small abscesses in the left groin right buttock and left axilla -Sepsis due to acute UTI; treat with ABX, consult ID -Left Nephrolithiasis, Small 3mm left Kidney stone, non-obtructive/no Left hyponephrosis per Urology, Dr. Chen which is different from Radiologist's report. No surgical intervention needed per Dr. Chen -ARF, vasomotor nephropathy resolving: monitor bmp closely -Diabetes mellitus, type 2, Uncontrolled diabetes. We'll increase Lantus to 30 units. Continue sliding-scale and advance accordingly. -HIV (human immunodeficiency virus infection), patient is not refusing to take antivirals, our hospital doesn't have her particular medication, but she brought her own and will take it. -Nicotine dependence: Nicotine patch one allowed -Moderate malnutrition, poa: consult School Fundraising Director -Obesity hypoventilation syndrome: Watch oxygenation closely. Patient without O2 no oxygenating well. -Hypertension: monitor closely, treat with antihypertensives -Elevated transaminases level: GI consulted, input noted History Interval history: Patient was seen and examined. Follow-up on current diagnosis UTI/pyelo. No overnight events reported to me but she was febrile with a Temp max 102.6F. Patient denies any chest pain, shortness breath, nausea/vomiting or severe headaches. Imaging, nursing note, chart, labs and old chart reviewed. Discussed with patient. Hospitalist Physical - Physical exam Narrative exam: Gen: ill appearing, WDWN, NAD, Awake, Alert, Orientated HEENT: NCAT, EOMI, PERRL, OP Clear Neck: supple, no adenopathy, no thyromegaly, no JVD CVS/Heart: RRR, normal S1S2, pulses present bilaterally Chest/Lungs: CTA B, Symmetrical chest expansion, good air entry bilaterally GI/Abdomen: soft, NTND, good bowel sounds, no guarding or rebound /Bladder:+ bilateral suprapubic tenderness/CVA tenderness but no paraspinal tenderness Extermity/Skin: no c/c/e, no obvious rash MSK: FROM x 4 Neuro: CN 2-12 grossly intact, no new focal deficits Psych: calm - Constitutional Vitals: Temp Pulse Resp BP Pulse Ox 99.5 F 100 H 16 155/88 95 12/06/18 07:45 12/06/18 07:45 12/06/18 09:50 12/06/18 07:45 12/06/18 07:45 General appearance: Present: no acute distress Results - Labs CBC & Chem 7: 12/06/18 06:43 12/06/18 06:43 Labs: Laboratory Last Values WBC 5.2 K/mm3 (4.5-11.0) 12/06/18 06:43 RBC 3.31 M/mm3 (3.65-5.03) L 12/06/18 06:43 Hgb 10.2 gm/dl (10.1-14.3) 12/06/18 06:43 Hct 30.2 % (30.3-42.9) L D 12/06/18 06:43 MCV 91 fl (79-97) 12/06/18 06:43 MCH 31 pg (28-32) 12/06/18 06:43 MCHC 34 % (30-34) 12/06/18 06:43 RDW 15.2 % (13.2-15.2) 12/06/18 06:43 Plt Count 63 K/mm3 (140-440) L 12/06/18 06:43 Lymph % (Auto) 24.4 % (13.4-35.0) 12/06/18 06:43 [place] % (Auto) 6.5 % (0.0-7.3) 12/06/18 06:43 Eos % (Auto) 0.5 % (0.0-4.3) 12/06/18 06:43 Baso % (Auto) 0.2 % (0.0-1.8) 12/06/18 06:43 Lymph # 1.3 K/mm3 (1.2-5.4) 12/06/18 06:43 [place] # 0.3 K/mm3 (0.0-0.8) 12/06/18 06:43 Eos # 0.0 K/mm3 (0.0-0.4) 12/06/18 06:43 Baso # 0.0 K/mm3 (0.0-0.1) 12/06/18 06:43 Add Manual Diff Complete 12/03/18 20:17 Total Counted 100 12/03/18 20:17 Seg Neutrophils % 68.4 % (40.0-70.0) 12/06/18 06:43 Seg Neuts % (Manual) 88.0 % (40.0-70.0) H 12/03/18 20:17 0 % 12/03/18 20:17 10.0 % (13.4-35.0) L 12/03/18 20:17 Reactive Lymphs % (Man) 0 % 12/03/18 20:17 2.0 % (0.0-7.3) 12/03/18 20:17 0 % (0.0-4.3) 12/03/18 20:17 0 % (0.0-1.8) 12/03/18 20:17 0 % 12/03/18 20:17 0 % 12/03/18 20:17 0 % 12/03/18 20:17 0 % 12/03/18 20:17 Nucleated RBC % Not Reportable 12/03/18 20:17 Seg Neutrophils # 3.5 K/mm3 (1.8-7.7) 12/06/18 06:43 Seg Neutrophils # Man 4.8 K/mm3 (1.8-7.7) 12/03/18 20:17 Band Neutrophils # 0.0 K/mm3 12/03/18 20:17 0.5 K/mm3 (1.2-5.4) L 12/03/18 20:17 Abs React Lymphs (Man) 0.0 K/mm3 12/03/18 20:17 0.1 K/mm3 (0.0-0.8) 12/03/18 20:17 0.0 K/mm3 (0.0-0.4) 12/03/18 20:17 0.0 K/mm3 (0.0-0.1) 12/03/18 20:17 0.0 K/mm3 12/03/18 20:17 0.0 K/mm3 12/03/18 20:17 0.0 K/mm3 12/03/18 20:17 Blast Cells # 0.0 K/mm3 12/03/18 20:17 WBC Morphology Not Reportable 12/03/18 20:17 Hypersegmented Neuts Not Reportable 12/03/18 20:17 Hyposegmented Neuts Not Reportable 12/03/18 20:17 Hypogranular Neuts Not Reportable 12/03/18 20:17 Not Reportable 12/03/18 20:17 Not Reportable 12/03/18 20:17 Not Reportable 12/03/18 20:17 Not Reportable 12/03/18 20:17 Not Reportable 12/03/18 20:17 Not Reportable 12/03/18 20:17 Not Reportable 12/03/18 20:17 Not Reportable 12/03/18 20:17 Plt Clumps, EDTA Not Reportable 12/03/18 20:17 Not Reportable 12/03/18 20:17 Not Reportable 12/03/18 20:17 Not Reportable 12/03/18 20:17 Plt Morphology Comment Not Reportable 12/03/18 20:17 RBC Morphology Normal 12/03/18 20:17 Dimorphic RBCs Not Reportable 12/03/18 20:17 Not Reportable 12/03/18 20:17 Not Reportable 12/03/18 20:17 Not Reportable 12/03/18 20:17 Not Reportable 12/03/18 20:17 Not Reportable 12/03/18 20:17 Not Reportable 12/03/18 20:17 Not Reportable 12/03/18 20:17 Not Reportable 12/03/18 20:17 Not Reportable 12/03/18 20:17 Not Reportable 12/03/18 20:17 Not Reportable 12/03/18 20:17 Not Reportable 12/03/18 20:17 Not Reportable 12/03/18 20:17 Not Reportable 12/03/18 20:17 Not Reportable 12/03/18 20:17 Not Reportable 12/03/18 20:17 Not Reportable 12/03/18 20:17 Not Reportable 12/03/18 20:17 Not Reportable 12/03/18 20:17 Acanthocytes (Spur) Not Reportable 12/03/18 20:17 Rouleaux Not Reportable 12/03/18 20:17 Not Reportable 12/03/18 20:17 Not Reportable 12/03/18 20:17 Not Reportable 12/03/18 20:17 Not Reportable 12/03/18 20:17 Hem Pathologist Commnt No 12/03/18 20:17 VBG pH 7.395 (7.320-7.420) 12/03/18 20:17 Sodium 136 mmol/L (137-145) L 12/06/18 06:43 Potassium 3.8 mmol/L (3.6-5.0) 12/06/18 06:43 Chloride 100.1 mmol/L (98-107) 12/06/18 06:43 Carbon Dioxide 23 mmol/L (22-30) 12/06/18 06:43 17 mmol/L 12/06/18 06:43 BUN 27 mg/dL (7-17) H 12/06/18 06:43 1.1 mg/dL (0.7-1.2) 12/06/18 06:43 Estimated GFR 56 ml/min 12/06/18 06:43 25 % 12/06/18 06:43 Glucose 218 mg/dL (65-100) H 12/06/18 06:43 POC Glucose 225 (70-105) H 12/06/18 07:51 Lactic Acid 3.00 mmol/L (0.7-2.0) H* 12/04/18 Unknown Calcium 9.1 mg/dL (8.4-10.2) 12/06/18 06:43 0.60 mg/dL (0.1-1.2) 12/06/18 06:43 0.4 mg/dL (0-0.2) H 12/06/18 06:43 0.2 mg/dL 12/06/18 06:43 AST 43 units/L (5-40) H 12/06/18 06:43 ALT 64 units/L (7-56) H 12/06/18 06:43 113 units/L (35-129) 12/06/18 06:43 7.4 g/dL (6.3-8.2) 12/06/18 06:43 2.9 g/dL (3.9-5) L 12/06/18 06:43 0.6 % 12/06/18 06:43 Smiley (Yellow) 12/03/18 21:33 Cloudy (Clear) 12/03/18 21:33 5.0 (5.0-7.0) 12/03/18 21:33 Ur Specific [place] 1.017 (1.003-1.030) 12/03/18 21:33 >500 mg/dL (Negative) 12/03/18 21:33 >=500 mg/dL (Negative) 12/03/18 21:33 Neg mg/dL (Negative) 12/03/18 21:33 Mod (Negative) 12/03/18 21:33 Neg (Negative) 12/03/18 21:33 Neg (Negative) 12/03/18 21:33 < 2.0 mg/dL (<2.0) 12/03/18 21:33 Ur Leukocyte Esterase Mod (Negative) 12/03/18 21:33 > 182.0 /HPF (0.0-6.0) H 12/03/18 21:33 11.0 /HPF (0.0-6.0) 12/03/18 21:33 U Epithel Cells (Auto) 8.0 /HPF (0-13.0) 12/03/18 21:33 1+ /HPF (Negative) 12/03/18 21:33 3+ /HPF 12/03/18 21:33 Hyaline Casts 5 /LPF 12/03/18 21:33 1+ /HPF 12/03/18 21:33 2+ /HPF 12/03/18 21:33 Hepatitis A IgM Ab Non-reactive (NonReactive) 12/05/18 10:05 Hep Bs Antigen Non-reactive (Negative) 12/05/18 10:05 Hep B Core IgM Ab Non-reactive (NonReactive) 12/05/18 10:05 Non-reactive (NonReactive) 12/05/18 10:05 Active Medications - Current Medications Current Medications: Generic Name Dose Route Start Last Admin Trade Name Freq PRN Reason Stop Dose Admin Acetaminophen 650 mg 12/03/18 22:48 12/05/18 17:10 Tylenol PO 650 mg Q4H PRN Administration Fever >101 Acetaminophen 650 mg 12/04/18 19:37 Tylenol DC Q6H PRN Pain, Mild (1-3) Aripiprazole 15 mg 12/04/18 17:00 12/05/18 09:39 Abilify PO Not Given QDAY GRIS Bupropion HCl 150 mg 12/04/18 17:00 12/05/18 09:41 Wellbutrin Xl PO Not Given QDAY GRIS Dextrose 50 ml 12/04/18 04:44 D50w (25gm) Syringe IV PRN PRN Hypoglycemia Heparin Sodium (Porcine) 5,000 unit 12/04/18 10:00 12/06/18 09:49 Heparin SUB-Q 5,000 unit Q12HR GRIS Administration Levofloxacin/Dextrose 750 mg in 150 mls @ 100 mls/hr 12/04/18 10:00 12/06/18 09:54 Levaquin 750mg/150ml IV 100 mls/hr Q24HR GRIS Administration Protocol Sodium Chloride 1,000 mls @ 150 mls/hr 12/03/18 23:00 12/04/18 02:55 Nacl 0.9% 1000 Ml IV 150 mls/hr DIRECT GRIS Administration Piperacillin Sod/Tazobactam Sod 4.5 gm in 100 mls @ 200 mls/hr 12/04/18 06:00 12/06/18 05:50 Zosyn/Ns 4.5gm/100ml IV 200 mls/hr Q8HR GRIS Administration Protocol Sodium Bicarbonate 150 meq/ 1,150 mls @ 42 mls/hr 12/04/18 17:00 12/04/18 23:57 Dextrose IV 42 mls/hr DIRECT GRIS Administration Insulin Human Isoph/Insulin Regular 35 unit 12/05/18 11:00 12/06/18 08:00 Humulin 70/30 SUB-Q 35 unit QDDIAB GRIS Administration Insulin Human Regular 0 units 12/04/18 07:30 12/06/18 08:00 Humulin R SUB-Q 2 units AC RGIS Administration Protocol Insulin Human Regular 0 units 12/04/18 22:00 12/05/18 22:15 Humulin R SUB-Q 2 units QHS GRIS Administration Protocol [place] Carbonate 300 mg 12/04/18 22:00 12/06/18 00:10 Eskalith PO Not Given BID GRIS Metoclopramide HCl 10 mg 12/04/18 17:07 Reglan PO Q6H PRN Nausea And Vomiting Metoclopramide HCl 10 mg 12/04/18 17:08 12/06/18 09:58 Reglan IV 10 mg Q6H PRN Administration Nausea And Vomiting Mirtazapine 45 mg 12/04/18 22:00 12/06/18 00:11 Remeron PO Not Given QHS [facility] Miscellaneous Medication 1 each 12/06/18 10:00 12/06/18 09:49 Abacavir/Dolutegravir/Lamivudi [Triumeq 600-50-300 Mg Tablet] PO 1 each DAILY [facility] Administration Morphine Sulfate 2 mg 12/03/18 22:50 12/06/18 09:50 Morphine IV 2 mg Q4H PRN Administration Pain, Moderate (4-6) Ondansetron HCl 4 mg 12/03/18 22:49 12/04/18 05:26 Zofran IV 4 mg Q8H PRN Administration Nausea And Vomiting
--- NOTE | 2018-12-06 12:04 | Event Note ---
Date: 12/06/18 Received consultation for sepsis presumed UTI. Blood cultures no growth so far. Urine culture not reported. 38 year old female well known to our service with HIV infection on Triumeg, sees Dr. Pedro Ponce ( last VL <20, CD4 319), non- compliant with ART therapy, asthma, depression, hyperlipedemia,obesity, hypertension, diabetes, tobacco dependency, recurrent skin boils, bilateral groin hidradenitis; multiple admission for sepsis on 10/24/18 with left groin/thigh abscess on top of hidradenitis and Proteus, E.coli UTI. Wound cultures from 06/02/18 and 06/21/18 both grew MSSA and group B strep. Readmitted again on 11/10/18 with complaints of right flank pain, right lower quadrant pain, fever, chills found with UTI. Urine culture 10-100K normal skin tash. Blood culture negative. Abdomen and Pelvis CT shows right renal low density cyst. no hydronephrosis. No ureteral stones. She is currently on zosyn and levaquin. Will stop them, start cefepime. Send urine culture. Full consultation to follow tomorrow.
[2018-12-06] MEDS: MAXIPIME/NS 2 GM/100 ML 2 GM/100 ML BAG IV SCH ×2 (14:00→22:51)
--- NOTE | 2018-12-06 17:52 | Gastroenterology Progress Note ---
Assessment and Plan # Elevated liver enzymes. - prior check during October admission with normal liver enzymes. - AST/ALT in 214/152 with normal bilirubin and down trending down. - CT a/p with normal appearing liver. - may be due to viral illness as well as her current infection. - hepatitis acute viral panel negative. - liver enzymes trending down. Rec - supportive care and treatment for infection. - can follow up in outpatient GI clinic for repeat CMP check 2 weeks post discharge. - will sign off. please call with questions. Subjective Date of service: 12/06/18 Interval history: Patient continues to have nausea but no vomiting. Abdominal pain improving. Objective - Constitutional Vitals: Temp Pulse Resp BP Pulse Ox 99.3 F 97 H 18 166/95 95 12/06/18 16:10 12/06/18 16:10 12/06/18 16:10 12/06/18 16:10 12/06/18 16:10 - EENT ENT: hearing intact, clear oral mucosa - Neck Neck: supple - Respiratory Respiratory effort: normal Respiratory: bilateral: CTA - Cardiovascular Rhythm: regular - Extremities Extremities: No edema - Gastrointestinal General gastrointestinal: Present: soft, non-tender, non-distended, normal bowel sounds - Integumentary Integumentary: Present: warm, dry - Neurologic Neurological: alert and oriented x3 - Labs CBC & Chem 7: 12/06/18 06:43 12/06/18 06:43 Labs: Laboratory Results - last 24 hr 12/05/18 12/06/18 12/06/18 20:48 06:43 06:43 WBC 5.2 RBC 3.31 L Hgb 10.2 Hct 30.2 L D MCV 91 MCH 31 MCHC 34 RDW 15.2 Plt Count 63 L Lymph % (Auto) 24.4 [place] % (Auto) 6.5 Eos % (Auto) 0.5 Baso % (Auto) 0.2 Lymph # 1.3 [place] # 0.3 Eos # 0.0 Baso # 0.0 Seg Neutrophils % 68.4 Seg Neutrophils # 3.5 Sodium 136 L Potassium 3.8 Chloride 100.1 Carbon Dioxide 23 Anion Gap 17 BUN 27 H Creatinine 1.1 Estimated GFR 56 BUN/Creatinine Ratio 25 Glucose 218 H POC Glucose 238 H Calcium 9.1 Total Bilirubin 0.60 Direct Bilirubin 0.4 H Indirect Bilirubin 0.2 AST 43 H ALT 64 H Alkaline Phosphatase 113 Total Protein 7.4 Albumin 2.9 L Albumin/Globulin Ratio 0.6 12/06/18 12/06/18 12/06/18 07:51 11:57 16:15 WBC RBC Hgb Hct MCV MCH MCHC RDW Plt Count Lymph % (Auto) [place] % (Auto) Eos % (Auto) Baso % (Auto) Lymph # [place] # Eos # Baso # Seg Neutrophils % Seg Neutrophils # Sodium Potassium Chloride Carbon Dioxide Anion Gap BUN Creatinine Estimated GFR BUN/Creatinine Ratio Glucose POC Glucose 225 H 311 H 281 H Calcium Total Bilirubin Direct Bilirubin Indirect Bilirubin AST ALT Alkaline Phosphatase Total Protein Albumin Albumin/Globulin Ratio
[2018-12-06] MEDS: SODIUM BICARBONATE 150 MEQ in D5W 1,000 ML IV SCH (22:54)
[2018-12-07] MEDS: MORPHINE IV PRN ×4 (06:05→21:04)
--- NOTE | 2018-12-07 07:56 | Progress Note ---
Assessment and Plan Assessment and plan: Patient is a 38 yo woman with a history of HIV on [facility], sees Dr. Pedro Ponce ( last VL <20, CD4 319), asthma, depression, hyperlipedemia, obesity, hypertension, diabetes, tobacco dependency, recurrent skin boils, bilateral groin hidradenitis most recently admitted on 10/24/18 for Sepsis, etiology left groin/thigh abscess due to hidradenitis.Her last urine cultures grew Escherichia coli and Proteus. Wound cultures from 06/02/18 and 06/21/18 both grew MSSA and group B strep. She presents to the ED on 11/10/18 with complaints of right flank pain, right lower quadrant pain, fever, chills, nausea/vomiting and dysuria. Patient states she also is continued to have some draining of small abscesses in the left groin right buttock and left axilla -Sepsis due to acute UTI; treat with ABX, consult ID, cefepime started. Afebril x 48hrs. Await urine culture result. * Review of previous urinalysis show postivity. Last culture urine culture positive 10/22/2018 +Proteus and E coli pansensitive. -Left Nephrolithiasis, Small 3mm left Kidney stone, non-obstructive/no Left hyponephrosis per Urology, Dr. Chen which is different from Radiologist's report. No surgical intervention needed per Dr. Chen -ARF, vasomotor nephropathy resolving: monitor bmp closely -Diabetes mellitus, type 2, Uncontrolled diabetes. We'll increase Lantus to 40 units. Continue sliding-scale and advance accordingly. complaince issue with this patient addressed. Counselling for 15 mins given -HIV (human immunodeficiency virus infection), patient is not refusing to take antivirals, our hospital doesn't have her particular medication, but she brought her own and will take it. sees Dr. Pedro Ponce ( last VL <20, CD4 319), non- compliant with ART therapy -Nicotine dependence: Nicotine patch one allowed -Moderate malnutrition, poa: consult Vice President Of Customer Service -Obesity hypoventilation syndrome: Watch oxygenation closely. Patient without O2 no oxygenating well. -Hypertension: monitor closely, treat with antihypertensives -Elevated transaminases level: GI consulted, input noted, patient is noted to have a decrease in transaminase levels. It may be due to viral illness as well as current infection per GI. Outpatient follow-up with GI recommended Hx of Hydranaitis- SURGERY AND ID consulted History Interval history: Patient seen and examined, reports improvement but still very lethargic. Hospitalist Physical - Physical exam Narrative exam: Gen: ill appearing, WDWN, NAD, Awake, Alert, Orientated HEENT: NCAT, EOMI, PERRL, OP Clear Neck: supple, no adenopathy, no thyromegaly, no JVD CVS/Heart: RRR, normal S1S2, pulses present bilaterally Chest/Lungs: CTA B, Symmetrical chest expansion, good air entry bilaterally GI/Abdomen: soft, NTND, good bowel sounds, no guarding or rebound /Bladder:+ bilateral suprapubic tenderness/CVA tenderness but no paraspinal tenderness Extermity/Skin: no c/c/e, swelling and induration with small purlent drainage on left axilla. Non tender, no warmth or redness MSK: FROM x 4 Neuro: CN 2-12 grossly intact, no new focal deficits Psych: calm - Constitutional Vitals: Temp Pulse Resp BP Pulse Ox 98.0 F 105 H 18 154/93 96 12/06/18 23:33 12/06/18 23:33 12/06/18 23:33 12/06/18 23:33 12/06/18 23:33 General appearance: Present: no acute distress Results - Labs CBC & Chem 7: 12/06/18 06:43 12/06/18 06:43 Labs: Laboratory Last Values WBC 5.2 K/mm3 (4.5-11.0) 12/06/18 06:43 RBC 3.31 M/mm3 (3.65-5.03) L 12/06/18 06:43 Hgb 10.2 gm/dl (10.1-14.3) 12/06/18 06:43 Hct 30.2 % (30.3-42.9) L D 12/06/18 06:43 MCV 91 fl (79-97) 12/06/18 06:43 MCH 31 pg (28-32) 12/06/18 06:43 MCHC 34 % (30-34) 12/06/18 06:43 RDW 15.2 % (13.2-15.2) 12/06/18 06:43 Plt Count 63 K/mm3 (140-440) L 12/06/18 06:43 Lymph % (Auto) 24.4 % (13.4-35.0) 12/06/18 06:43 [place] % (Auto) 6.5 % (0.0-7.3) 12/06/18 06:43 Eos % (Auto) 0.5 % (0.0-4.3) 12/06/18 06:43 Baso % (Auto) 0.2 % (0.0-1.8) 12/06/18 06:43 Lymph # 1.3 K/mm3 (1.2-5.4) 12/06/18 06:43 [place] # 0.3 K/mm3 (0.0-0.8) 12/06/18 06:43 Eos # 0.0 K/mm3 (0.0-0.4) 12/06/18 06:43 Baso # 0.0 K/mm3 (0.0-0.1) 12/06/18 06:43 Add Manual Diff Complete 12/03/18 20:17 Total Counted 100 12/03/18 20:17 Seg Neutrophils % 68.4 % (40.0-70.0) 12/06/18 06:43 Seg Neuts % (Manual) 88.0 % (40.0-70.0) H 12/03/18 20:17 0 % 12/03/18 20:17 10.0 % (13.4-35.0) L 12/03/18 20:17 Reactive Lymphs % (Man) 0 % 12/03/18 20:17 2.0 % (0.0-7.3) 12/03/18 20:17 0 % (0.0-4.3) 12/03/18 20:17 0 % (0.0-1.8) 12/03/18 20:17 0 % 12/03/18 20:17 0 % 12/03/18 20:17 0 % 12/03/18 20:17 0 % 12/03/18 20:17 Nucleated RBC % Not Reportable 12/03/18 20:17 Seg Neutrophils # 3.5 K/mm3 (1.8-7.7) 12/06/18 06:43 Seg Neutrophils # Man 4.8 K/mm3 (1.8-7.7) 12/03/18 20:17 Band Neutrophils # 0.0 K/mm3 12/03/18 20:17 0.5 K/mm3 (1.2-5.4) L 12/03/18 20:17 Abs React Lymphs (Man) 0.0 K/mm3 12/03/18 20:17 0.1 K/mm3 (0.0-0.8) 12/03/18 20:17 0.0 K/mm3 (0.0-0.4) 12/03/18 20:17 0.0 K/mm3 (0.0-0.1) 12/03/18 20:17 0.0 K/mm3 12/03/18 20:17 0.0 K/mm3 12/03/18 20:17 0.0 K/mm3 12/03/18 20:17 Blast Cells # 0.0 K/mm3 12/03/18 20:17 WBC Morphology Not Reportable 12/03/18 20:17 Hypersegmented Neuts Not Reportable 12/03/18 20:17 Hyposegmented Neuts Not Reportable 12/03/18 20:17 Hypogranular Neuts Not Reportable 12/03/18 20:17 Not Reportable 12/03/18 20:17 Not Reportable 12/03/18 20:17 Not Reportable 12/03/18 20:17 Not Reportable 12/03/18 20:17 Not Reportable 12/03/18 20:17 Not Reportable 12/03/18 20:17 Not Reportable 12/03/18 20:17 Not Reportable 12/03/18 20:17 Plt Clumps, EDTA Not Reportable 12/03/18 20:17 Not Reportable 12/03/18 20:17 Not Reportable 12/03/18 20:17 Not Reportable 12/03/18 20:17 Plt Morphology Comment Not Reportable 12/03/18 20:17 RBC Morphology Normal 12/03/18 20:17 Dimorphic RBCs Not Reportable 12/03/18 20:17 Not Reportable 12/03/18 20:17 Not Reportable 12/03/18 20:17 Not Reportable 12/03/18 20:17 Not Reportable 12/03/18 20:17 Not Reportable 12/03/18 20:17 Not Reportable 12/03/18 20:17 Not Reportable 12/03/18 20:17 Not Reportable 12/03/18 20:17 Not Reportable 12/03/18 20:17 Not Reportable 12/03/18 20:17 Not Reportable 12/03/18 20:17 Not Reportable 12/03/18 20:17 Not Reportable 12/03/18 20:17 Not Reportable 12/03/18 20:17 Not Reportable 12/03/18 20:17 Not Reportable 12/03/18 20:17 Not Reportable 12/03/18 20:17 Not Reportable 12/03/18 20:17 Not Reportable 12/03/18 20:17 Acanthocytes (Spur) Not Reportable 12/03/18 20:17 Rouleaux Not Reportable 12/03/18 20:17 Not Reportable 12/03/18 20:17 Not Reportable 12/03/18 20:17 Not Reportable 12/03/18 20:17 Not Reportable 12/03/18 20:17 Hem Pathologist Commnt No 12/03/18 20:17 VBG pH 7.395 (7.320-7.420) 12/03/18 20:17 Sodium 136 mmol/L (137-145) L 12/06/18 06:43 Potassium 3.8 mmol/L (3.6-5.0) 12/06/18 06:43 Chloride 100.1 mmol/L (98-107) 12/06/18 06:43 Carbon Dioxide 23 mmol/L (22-30) 12/06/18 06:43 17 mmol/L 12/06/18 06:43 BUN 27 mg/dL (7-17) H 12/06/18 06:43 1.1 mg/dL (0.7-1.2) 12/06/18 06:43 Estimated GFR 56 ml/min 12/06/18 06:43 25 % 12/06/18 06:43 Glucose 218 mg/dL (65-100) H 12/06/18 06:43 POC Glucose 295 (70-105) H 12/06/18 22:57 Lactic Acid 3.00 mmol/L (0.7-2.0) H* 12/04/18 Unknown Calcium 9.1 mg/dL (8.4-10.2) 12/06/18 06:43 0.60 mg/dL (0.1-1.2) 12/06/18 06:43 0.4 mg/dL (0-0.2) H 12/06/18 06:43 0.2 mg/dL 12/06/18 06:43 AST 43 units/L (5-40) H 12/06/18 06:43 ALT 64 units/L (7-56) H 12/06/18 06:43 113 units/L (35-129) 12/06/18 06:43 7.4 g/dL (6.3-8.2) 12/06/18 06:43 2.9 g/dL (3.9-5) L 12/06/18 06:43 0.6 % 12/06/18 06:43 Smiley (Yellow) 12/03/18 21:33 Cloudy (Clear) 12/03/18 21:33 5.0 (5.0-7.0) 12/03/18 21:33 Ur Specific [place] 1.017 (1.003-1.030) 12/03/18 21:33 >500 mg/dL (Negative) 12/03/18 21:33 >=500 mg/dL (Negative) 12/03/18 21:33 Neg mg/dL (Negative) 12/03/18 21:33 Mod (Negative) 12/03/18 21:33 Neg (Negative) 12/03/18 21:33 Neg (Negative) 12/03/18 21:33 < 2.0 mg/dL (<2.0) 12/03/18 21:33 Ur Leukocyte Esterase Mod (Negative) 12/03/18 21:33 > 182.0 /HPF (0.0-6.0) H 12/03/18 21:33 11.0 /HPF (0.0-6.0) 12/03/18 21:33 U Epithel Cells (Auto) 8.0 /HPF (0-13.0) 12/03/18 21:33 1+ /HPF (Negative) 12/03/18 21:33 3+ /HPF 12/03/18 21:33 Hyaline Casts 5 /LPF 12/03/18 21:33 1+ /HPF 12/03/18 21:33 2+ /HPF 12/03/18 21:33 Hepatitis A IgM Ab Non-reactive (NonReactive) 12/05/18 10:05 Hep Bs Antigen Non-reactive (Negative) 12/05/18 10:05 Hep B Core IgM Ab Non-reactive (NonReactive) 12/05/18 10:05 Non-reactive (NonReactive) 12/05/18 10:05 Active Medications - Current Medications Current Medications: Generic Name Dose Route Start Last Admin Trade Name Freq PRN Reason Stop Dose Admin Acetaminophen 650 mg 12/03/18 22:48 12/05/18 17:10 Tylenol PO 650 mg Q4H PRN Administration Fever >101 Acetaminophen 650 mg 12/04/18 19:37 Tylenol OR Q6H PRN Pain, Mild (1-3) Aripiprazole 15 mg 12/04/18 17:00 12/06/18 10:35 Abilify PO Not Given QDAY GRIS Bupropion HCl 150 mg 12/04/18 17:00 12/06/18 10:35 Wellbutrin Xl PO Not Given QDAY GRIS Dextrose 50 ml 12/04/18 04:44 D50w (25gm) Syringe IV PRN PRN Hypoglycemia Heparin Sodium (Porcine) 5,000 unit 12/04/18 10:00 12/06/18 23:05 Heparin SUB-Q Not Given Q12HR GRIS Sodium Chloride 1,000 mls @ 150 mls/hr 12/03/18 23:00 12/04/18 02:55 Nacl 0.9% 1000 Ml IV 150 mls/hr DIRECT GRIS Administration Sodium Bicarbonate 150 meq/ 1,150 mls @ 42 mls/hr 12/04/18 17:00 12/06/18 22:54 Dextrose IV 42 mls/hr DIRECT GRIS Administration Cefepime HCl 2 gm in 100 mls @ 200 mls/hr 12/06/18 13:00 12/06/18 22:51 Maxipime/Ns 2 Gm/100 Ml IV 200 mls/hr Q12HR GRIS Administration Protocol Insulin Human Isoph/Insulin Regular 40 unit 12/07/18 07:53 Humulin 70/30 SUB-Q QDDIAB GRIS Insulin Human Regular 0 units 12/04/18 07:30 12/06/18 15:00 Humulin R SUB-Q 3 units AC GRIS Administration Protocol Insulin Human Regular 0 units 12/04/18 22:00 12/06/18 23:15 Humulin R SUB-Q 3 units QHS GRIS Administration Protocol [place] Carbonate 300 mg 12/04/18 22:00 12/06/18 23:05 Eskalith PO Not Given BID GRIS Metoclopramide HCl 10 mg 12/04/18 17:07 Reglan PO Q6H PRN Nausea And Vomiting Metoclopramide HCl 10 mg 12/04/18 17:08 12/06/18 22:51 Reglan IV 10 mg Q6H PRN Administration Nausea And Vomiting Mirtazapine 45 mg 12/04/18 22:00 12/06/18 23:05 Remeron PO Not Given QHS [facility] Miscellaneous Medication 1 each 12/06/18 10:00 12/06/18 09:49 Abacavir/Dolutegravir/Lamivudi [Triumeq 600-50-300 Mg Tablet] PO 1 each DAILY GRIS Administration Morphine Sulfate 2 mg 12/03/18 22:50 12/07/18 06:05 Morphine IV 2 mg Q4H PRN Administration Pain, Moderate (4-6) Ondansetron HCl 4 mg 12/03/18 22:49 12/04/18 05:26 Zofran IV 4 mg Q8H PRN Administration Nausea And Vomiting
[2018-12-07] MEDS: HumuLIN R SUB-Q SCH ×4 (08:00→22:22)
[2018-12-07] MEDS: NON-FORMULARY (Abacavir/Dolutegravir/Lamivudi [Triumeq 600-50-300 Mg Tablet] 1 EACH) PO SCH (09:11)
[2018-12-07] MEDS: HEPARIN SUB-Q SCH ×2 (09:12→22:32)
[2018-12-07] MEDS: ESKALITH PO SCH ×2 (09:15→22:33)
[2018-12-07] MEDS: MAXIPIME/NS 2 GM/100 ML 2 GM/100 ML BAG IV SCH ×2 (09:15→22:21)
[2018-12-07] MEDS: WELLBUTRIN XL PO SCH (09:15)
[2018-12-07] MEDS: ABILIFY PO SCH (09:15)
--- NOTE | 2018-12-07 11:24 | Consultation ---
History of Present Illness - Reason for Consult Consult date: 12/07/18 Sepsis, UTI, Pyelo Requesting physician: GUMARO WEATHERS - History of Present Illness This patient is a 38 year old female with a past medical history of HIV infection on [facility], sees Dr. Ponce (last VL < 20, CD4 319). non-compliant with ART therapy, asthma, depression, hyperlipedemia, obesity, hypertension, diabetes, tobacco dependency, recurrent skin boils, bilateral groin hidradenitis that is know to ID service form multiple previous admissions. Admission for sepsis on 10/24/18 with left groin/thigh abscess on top of hidradenitis and Proteus, E.coli UTI. Wound cultures from 06/02/18 and 06/21/18 both grew MSSA and group B strep. Readmitted again on 11/10/18 with complaints of right flank pain, right lower quadrant pain, fever, chills found with UTI. Urine culture 10-100K normal skin tash. She presented to [facility] ED on 12/03/18 with complaints of dysuria, Suprapubic discomfort and high fever. ID was consulted for sepsis presumed UTI. On admission WBC 5.4, Creatinine 1.1, Lactic Acid 2.8, Tmax 103.2, HR 130, BP 101/52. UA with pyuria. WBC >182, moderate LE. Bood cultures show no growth to date. Urine culture in progress. CXR shows no consolidation. Abdomen and Pelvis CT shows obstructing 3mm left proximal ureteral stone. Mild left hydronephrosis. probable cystitis. . Review of Systems: General: + fever, +chills, nightsweats, unintentional weight change, or change in appetite Cutaneous: no rash, pruritus Head: no headaches or injury Eyes: no changes in vision, eye pain, double vision Ears: no ear pain, ear discharge, ringing or hearing loss Nose: no nose bleeding, stuffiness Mouth & throat: no bleeding gums, no horseness, no dental problems, or swollen glands Neck: no pain, node enlargement/lumps, tyroid enlargement or tenderness Respiratory: no cough, wheezing, sputum, hemoptysis, pleuritic chest pain Cardiovascular: no chest pain, leg edema, cyanosis, LOPEZ, orthopnea Musculoskeletal: no decreased joint motion, bone or joint pain, joint swelling, muscle aches Gastrointestinal: no nausea, vomiting, hematemesis, diarrhea, constipation, melena, bright red blood in stools, fecal incontinence, jaundice Genitourinary/Reproductive: + dysuria., no frequent urination, hematuria, - right /left flank pain. Neurogical: no seizures, no headaches, no weakness, no paresthesias, no loss of speech or vision; no memory loss, no vertigo, no tremors, no numbness Psychiatric: stable mood; flat affect Past History Past Medical History: HIV/AIDS Past Surgical History: Other (wound surgery) Family history: hypertension Medications and Allergies Allergies Allergy/AdvReac Type Severity Reaction Status Date / Time iodine Allergy Swelling Verified 10/22/18 17:47 sulfamethoxazole Allergy Rash Verified 10/22/18 17:47 [From Bactrim] trimethoprim [From Bactrim] Allergy Rash Verified 10/22/18 17:47 metformin AdvReac Nausea Verified 10/22/18 17:47 seafood Allergy Rash Uncoded 02/16/18 13:38 Home Medications Medication Instructions Recorded Confirmed Last Taken Type Atorvastatin [Lipitor] 40 mg PO HS 04/13/13 12/04/18 09/08/17 History Abacavir/Dolutegravir/Lamivudi 1 each PO DAILY 07/10/15 12/04/18 09/08/17 History [Triumeq 600-50-300 mg Tablet] ARIPiprazole [Abilify TAB] 15 mg PO QDAY 06/02/18 12/04/18 Unknown History [place] Carbonate [Eskalith] 300 mg PO BID 06/02/18 12/04/18 Unknown History Mirtazapine 45 mg PO QHS 06/02/18 12/04/18 Unknown History buPROPion XL [Wellbutrin XL] 150 mg PO QDAY 06/02/18 12/04/18 Unknown History Metoprolol [Lopressor TAB] 25 mg PO BID #60 tablet 10/27/18 12/04/18 Unknown Rx amLODIPine [Norvasc] 10 mg PO QDAY #30 tablet 10/27/18 12/04/18 Unknown Rx Insulin NPH/Regular [NovoLIN 70/30] 30 unit SUB-Q QDDIAB #10 ml 11/14/18 12/04/18 Unknown Rx Gabapentin [Neurontin] 800 mg PO TID 12/04/18 12/04/18 Unknown History Sitagliptin Phosphate [Januvia] 100 mg PO DAILY 12/04/18 12/04/18 Unknown History Active Meds: Active Medications Acetaminophen (Tylenol) 650 mg PO Q4H PRN PRN Reason: Fever >101 Last Admin: 12/05/18 17:10 Dose: 650 mg Documented by: Acetaminophen (Tylenol) 650 mg [place] Q6H PRN PRN Reason: Pain, Mild (1-3) Aripiprazole (Abilify) 15 mg PO QDAY [facility] Last Admin: 12/07/18 09:15 Dose: Not Given Documented by: Bupropion HCl (Wellbutrin Xl) 150 mg PO QDAY [facility] Last Admin: 12/07/18 09:15 Dose: Not Given Documented by: Dextrose (D50w (25gm) Syringe) 50 ml IV PRN PRN PRN Reason: Hypoglycemia Heparin Sodium (Porcine) (Heparin) 5,000 unit SUB-Q Q12HR [facility] Last Admin: 12/07/18 09:12 Dose: 5,000 unit Documented by: Sodium Bicarbonate 150 meq/ (Dextrose) 1,150 mls @ 42 mls/hr IV DIRECT [facility] Last Admin: 12/06/18 22:54 Dose: 42 mls/hr Documented by: Cefepime HCl (Maxipime/Ns 2 Gm/100 Ml) 2 gm in 100 mls @ 200 mls/hr IV Q12HR [facility]; Protocol Last Admin: 12/07/18 09:15 Dose: 200 mls/hr Documented by: Insulin Human Isoph/Insulin Regular (Humulin 70/30) 40 unit SUB-Q QDDIAB [facility] Last Admin: 12/07/18 09:27 Dose: 40 unit Documented by: Insulin Human Regular (Humulin R) 0 units SUB-Q AC [facility]; Protocol Last Admin: 12/07/18 08:00 Dose: 3 units Documented by: Insulin Human Regular (Humulin R) 0 units SUB-Q QHS [facility]; Protocol Last Admin: 12/06/18 23:15 Dose: 3 units Documented by: [place] Carbonate (Eskalith) 300 mg PO BID [facility] Last Admin: 12/07/18 09:15 Dose: Not Given Documented by: Metoclopramide HCl (Reglan) 10 mg PO Q6H PRN PRN Reason: Nausea And Vomiting Metoclopramide HCl (Reglan) 10 mg IV Q6H PRN PRN Reason: Nausea And Vomiting Last Admin: 12/06/18 22:51 Dose: 10 mg Documented by: Mirtazapine (Remeron) 45 mg PO QHS [facility] Last Admin: 12/06/18 23:05 Dose: Not Given Documented by: Miscellaneous Medication (Abacavir/Dolutegravir/Lamivudi [Triumeq 600-50-300 Mg Tablet]) 1 each PO DAILY [facility] Last Admin: 12/07/18 09:11 Dose: 1 each Documented by: Morphine Sulfate (Morphine) 2 mg IV Q4H PRN PRN Reason: Pain, Moderate (4-6) Last Admin: 12/07/18 10:15 Dose: 2 mg Documented by: Ondansetron HCl (Zofran) 4 mg IV Q8H PRN PRN Reason: Nausea And Vomiting Last Admin: 12/04/18 05:26 Dose: 4 mg Documented by: Physical Examination - Physical Exam Narrative exam: Constitutional: Alert, cooperative. Right lower quadrant pain Head, Ears, Nose: Normocephalic, atraumatic. External ears, nose normal Eyes: Conjunctivae/corneas clear. No icterus. No ptosis. Neck: Supple, no meningeal signs Oral: dentition fair. No thrush. Cardiovascular: S1, S2 normal. Respiratory: Good air entry, clear to auscultation bilaterally GI: Soft, non-tender; bowel sounds normal. No peritoneal signs. : Right flank pain. suprapubic pain and tenderness. Musculoskeletal: No pedal edema, no cyanosis. Skin: No rash or abscess. Hem/Lymphatic: No palpable cervical or supraclavicular nodes. No lymphangitis Psych: Mood ok. Affect flat Neurological: Awake, alert, oriented. - Constitutional Vitals: Vital Signs Temp Pulse Resp BP Pulse Ox 98.0 F 105 H 18 154/93 96 12/06/18 23:33 12/06/18 23:33 12/06/18 23:33 12/06/18 23:33 12/06/18 23:33 Temperature -Last 24 Hours Temperature 98.0 F Temperature 99.5 F Temperature 99.3 F Temperature 98.8 F Results - Labs CBC & Chem 7: 12/06/18 06:43 12/06/18 06:43 Labs: Abnormal lab results 12/06/18 12/06/18 12/06/18 Range/Units 11:57 16:15 22:57 POC Glucose 311 H 281 H 295 H (70-105) 12/07/18 Range/Units 08:33 POC Glucose 276 H (70-105) - Imaging and Cardiology Chest x-ray: report reviewed (No consolidation) CT scan - abdomen: report reviewed ( obstructing 3mm left proximal stone with mild left hydronephrosis.. Probable cystitis. Left nephrolithiasis. ) Assessment and Plan Cultures: 12/03/18 Blood: no growth 12/06/18 Urine: in progress 38 year old female with a past medical history of HIV infection on [facility], sees Dr. Ponce (last VL < 20, CD4 319). non-compliant with ART therapy, asthma, depression, hyperlipedemia, obesity, hypertension, diabetes, tobacco dependency, recurrent skin boils, bilateral groin hidradenitis that is know to ID service form multiple previous admissions. Now presents with presented with complaints of dysuria, Suprapubic discomfort and high fever. ID was consulted for sepsis presumed UTI. 1. Sepsis on Admission: evidenced by elevated lactate, fever and tachycardia. Etiology most likely UTI. Blood cultures no growth. CXR no consolidation. Curren tly being treated with cefepime. 2. UTI: UA with significant pyuria. WBC > 182, moderate LE. Urine culture in progress.. Abdomen and pelvis CT show 3mm left proximal stone with mild left hydronephrosis ( misread)). No surgical intervention needed per urology. 3. HIV: On [facility] at home. Nonformulary here. ID Physician Dr. Ponce. Most recent CD4 here 319/VL <20 on 09/21/18. 4. Type 2 Diabetes: Uncontrolled. BG on admission 218 Recommendations: -continue Cefepime -follow-up urine cultures [facility] M: [phone] O:[phone]
--- NOTE | 2018-12-07 17:16 | Consultation ---
History of Present Illness Consult date: 12/07/18 Reason for consult: wound care Requesting physician: SAQIB ISAACS Chief complaint: chronic drainage from wounds - History of present illness History of present illness: Patient is a 38-year-old female who is presenting with dysuria as well as high fever. Patient's been in and out of the hospital quite frequently over the last 2 months secondary to recurrent UTI as well as hidradenitis. Patient has had multiple I&D's. Patient states she also is continued to have some draining of small abscesses in the left groin right buttock and left axilla. General surgery was asked to evaluate. Pt reports that they have been there about 1 month. They began after she was last seen in the wound clinic. The left groin and right buttock areas have recently stopped draining. Past History Past Medical History: HIV/AIDS Past Surgical History: Other (wound surgery) Family history: hypertension Medications and Allergies Allergies Allergy/AdvReac Type Severity Reaction Status Date / Time iodine Allergy Swelling Verified 10/22/18 17:47 sulfamethoxazole Allergy Rash Verified 10/22/18 17:47 [From Bactrim] trimethoprim [From Bactrim] Allergy Rash Verified 10/22/18 17:47 metformin AdvReac Nausea Verified 10/22/18 17:47 seafood Allergy Rash Uncoded 02/16/18 13:38 Home Medications Medication Instructions Recorded Confirmed Last Taken Type Atorvastatin [Lipitor] 40 mg PO HS 04/13/13 12/04/18 09/08/17 History Abacavir/Dolutegravir/Lamivudi 1 each PO DAILY 07/10/15 12/04/18 09/08/17 History [Triumeq 600-50-300 mg Tablet] ARIPiprazole [Abilify TAB] 15 mg PO QDAY 06/02/18 12/04/18 Unknown History [place] Carbonate [Eskalith] 300 mg PO BID 06/02/18 12/04/18 Unknown History Mirtazapine 45 mg PO QHS 06/02/18 12/04/18 Unknown History buPROPion XL [Wellbutrin XL] 150 mg PO QDAY 06/02/18 12/04/18 Unknown History Metoprolol [Lopressor TAB] 25 mg PO BID #60 tablet 10/27/18 12/04/18 Unknown Rx amLODIPine [Norvasc] 10 mg PO QDAY #30 tablet 10/27/18 12/04/18 Unknown Rx Insulin NPH/Regular [NovoLIN 70/30] 30 unit SUB-Q QDDIAB #10 ml 11/14/18 12/04/18 Unknown Rx Gabapentin [Neurontin] 800 mg PO TID 12/04/18 12/04/18 Unknown History Sitagliptin Phosphate [Januvia] 100 mg PO DAILY 12/04/18 12/04/18 Unknown History Active Meds: Active Medications Acetaminophen (Tylenol) 650 mg PO Q4H PRN PRN Reason: Fever >101 Last Admin: 12/05/18 17:10 Dose: 650 mg Documented by: Acetaminophen (Tylenol) 650 mg [place] Q6H PRN PRN Reason: Pain, Mild (1-3) Aripiprazole (Abilify) 15 mg PO QDAY [facility] Last Admin: 12/07/18 09:15 Dose: Not Given Documented by: Bupropion HCl (Wellbutrin Xl) 150 mg PO QDAY [facility] Last Admin: 12/07/18 09:15 Dose: Not Given Documented by: Dextrose (D50w (25gm) Syringe) 50 ml IV PRN PRN PRN Reason: Hypoglycemia Heparin Sodium (Porcine) (Heparin) 5,000 unit SUB-Q Q12HR [facility] Last Admin: 12/07/18 09:12 Dose: 5,000 unit Documented by: Sodium Bicarbonate 150 meq/ (Dextrose) 1,150 mls @ 42 mls/hr IV DIRECT GRIS Last Admin: 12/06/18 22:54 Dose: 42 mls/hr Documented by: Cefepime HCl (Maxipime/Ns 2 Gm/100 Ml) 2 gm in 100 mls @ 200 mls/hr IV Q12HR [facility]; Protocol Last Admin: 12/07/18 09:15 Dose: 200 mls/hr Documented by: Insulin Human Isoph/Insulin Regular (Humulin 70/30) 40 unit SUB-Q QDDIAB [facility] Last Admin: 12/07/18 09:27 Dose: 40 unit Documented by: Insulin Human Regular (Humulin R) 0 units SUB-Q AC [facility]; Protocol Last Admin: 12/07/18 12:00 Dose: 3 units Documented by: Insulin Human Regular (Humulin R) 0 units SUB-Q QHS [facility]; Protocol Last Admin: 12/06/18 23:15 Dose: 3 units Documented by: [place] Carbonate (Eskalith) 300 mg PO BID [facility] Last Admin: 12/07/18 09:15 Dose: Not Given Documented by: Metoclopramide HCl (Reglan) 10 mg PO Q6H PRN PRN Reason: Nausea And Vomiting Metoclopramide HCl (Reglan) 10 mg IV Q6H PRN PRN Reason: Nausea And Vomiting Last Admin: 12/06/18 22:51 Dose: 10 mg Documented by: Mirtazapine (Remeron) 45 mg PO QHS [facility] Last Admin: 12/06/18 23:05 Dose: Not Given Documented by: Miscellaneous Medication (Abacavir/Dolutegravir/Lamivudi [Triumeq 600-50-300 Mg Tablet]) 1 each PO DAILY [facility] Last Admin: 12/07/18 09:11 Dose: 1 each Documented by: Morphine Sulfate (Morphine) 2 mg IV Q4H PRN PRN Reason: Pain, Moderate (4-6) Last Admin: 12/07/18 16:17 Dose: 2 mg Documented by: Ondansetron HCl (Zofran) 4 mg IV Q8H PRN PRN Reason: Nausea And Vomiting Last Admin: 12/04/18 05:26 Dose: 4 mg Documented by: Review of Systems - Constitutional fever - Cardiovascular no chest pain, no shortness of breath - Gastrointestinal abdominal pain (suprapubic pain) - Genitourinary Genitourinary: dysuria - Integumentary wounds Exam Vital Signs Temp Pulse Resp BP Pulse Ox 102.9 F H 130 H 18 101/52 100 12/03/18 19:51 12/03/18 19:51 12/03/18 19:51 12/03/18 19:51 12/03/18 19:51 - General physical appearance Positive: no distress, no pain, obese - Respiratory Positive: normal expansion, normal respiratory effort - Integumentary other (1cm area of swelling in left axilla with small amount of purulent drainage expressed when compressed. No erythema.+tenderness) - Neurologic Neurologic: alert and oriented to time, place and person, motor strength and sensation are grossly intact - Psychiatric Psychiatric: appropriate mood/affect, intact judgment & insight, cooperative Results - Labs 12/06/18 06:43 12/06/18 06:43 Abnormal lab results 12/06/18 12/07/18 12/07/18 Range/Units 22:57 08:33 13:29 POC Glucose 295 H 276 H 282 H (70-105) Assessment and Plan - Patient Problems (1) Hidradenitis suppurativa Current Visit: Yes Status: Acute Plan to address problem: Pt stable. 2 of the 3 areas have stopped draining. The left axilla is the only area that remains and it does not show any signs of active infection. No surgical intervention recommended at this time. Would keep clean and avoid chemicals to that area. f/u in wound clinic after discharge. Please call with questions. Time=20min
[2018-12-07] MEDS: REMERON PO SCH (22:36)
[2018-12-08] MEDS: MORPHINE IV PRN ×3 (03:09→15:23)
[2018-12-08] MEDS: HumuLIN R SUB-Q SCH ×3 (10:31→18:14)
--- NOTE | 2018-12-08 10:34 | Progress Note ---
Assessment and Plan Cultures: 12/03/18 Blood: no growth 12/06/18 Urine: no growth 38 year old female with a past medical history of HIV infection on Triumeg, sees Dr. Ponce (last VL < 20, CD4 319). non-compliant with ART therapy, asthma, depression, hyperlipedemia, obesity, hypertension, diabetes, tobacco dependency, recurrent skin boils, bilateral groin hidradenitis that is know to ID service form multiple previous admissions. Now presents with presented with complaints of dysuria, Suprapubic discomfort and high fever. ID was consulted for sepsis presumed UTI. 1. Sepsis on Admission: evidenced by elevated lactate, fever and tachycardia. Etiology most likely UTI. Blood cultures no growth. CXR no consolidation. Currently being treated with cefepime. 2. UTI: UA with significant pyuria. WBC > 182, moderate LE. Urine culture in progress.. Abdomen and pelvis CT show 3mm left proximal stone with mild left hydronephrosis ( misread)). No surgical intervention needed per urology. 3. HIV: On Triumeg at home. Nonformulary here. ID Physician Dr. Ponce. Most recent CD4 here 319/VL <20 on 09/21/18. 4. Type 2 Diabetes: Uncontrolled. BG on admission 218 5. History of Hidrandenitis suppurative with left inner thigh abscess: multiple I & D's. Reports drainage of left groin, right buttock and left axilla over the last month. Current active drainage of left axilla, no sighs of active infection. Dr. Dill following. Recommendations: -continue Cefepime -continue Triumeg (has own supply) -follow-up urine cultures -continue wound care -follow-up wound care outpatient -Anticipate discharge on Levaquin 750mg Po q day for total 5 days (end date 12/11/18) Yina Campbell [facility] [facility] M: [phone] O:[phone] Subjective Date of service: 12/08/18 Interval history: Patient seen and examined. Reports continued bilateral flank pain. No fevers. Objective - Exam Narrative Exam: Constitutional: Alert, cooperative. mild distress reported Head, Ears, Nose: Normocephalic, atraumatic. External ears, nose normal Eyes: Conjunctivae/corneas clear. No icterus. No ptosis. Neck: Supple, no meningeal signs Oral: dentition fair. No thrush. Cardiovascular: S1, S2 normal. Respiratory: Good air entry, clear to auscultation bilaterally GI: Soft, non-tender; bowel sounds normal. No peritoneal signs. : Bilateral flank pain. suprapubic pain and tenderness improved. Musculoskeletal: . Left groin, right buttock and left axilla wound c/d/I + tenderness Skin: same as above Hem/Lymphatic: No palpable cervical or supraclavicular nodes. No lymphangitis Psych: Mood ok. Neurological: Awake, alert, oriented. - Constitutional Vitals: Vital Signs Temp Pulse Resp BP Pulse Ox 98.8 F 92 H 18 136/64 99 12/08/18 07:40 12/08/18 07:40 12/08/18 07:40 12/08/18 07:40 12/08/18 07:40 Temperature -Last 24 Hours Temperature 98.8 F Temperature 98.0 F Temperature 98.5 F Temperature 99.3 F Temperature 99.1 F - Labs CBC & Chem 7: 12/06/18 06:43 12/06/18 06:43 Labs: Abnormal lab results 12/07/18 12/07/18 12/08/18 Range/Units 13:29 21:00 07:45 POC Glucose 282 H 259 H 246 H (70-105)
[2018-12-08] MEDS: ABILIFY PO SCH (10:47)
[2018-12-08] MEDS: ESKALITH PO SCH (10:48)
[2018-12-08] MEDS: WELLBUTRIN XL PO SCH (10:48)
[2018-12-08] MEDS: HEPARIN SUB-Q SCH (10:48)
[2018-12-08] MEDS: MAXIPIME/NS 2 GM/100 ML 2 GM/100 ML BAG IV SCH (10:48)
[2018-12-08] MEDS: NON-FORMULARY (Abacavir/Dolutegravir/Lamivudi [Triumeq 600-50-300 Mg Tablet] 1 EACH) PO SCH (10:49)
--- NOTE | 2018-12-08 13:33 | Discharge Summary ---
Providers - Providers Date of Admission: 12/03/18 22:43 Attending physician: SAQIB ISAACS MD 12/05/18 09:57 Consult to Physician [CONS] Routine Comment: Consulting Provider: DION MCNALLY Physician Instructions: Reason For Exam: increase lft 12/06/18 11:07 Consult to Physician [CONS] Routine Comment: Consulting Provider: DEREK LUZ Physician Instructions: Reason For Exam: sepsis, uti, pyelo, ?obstructive stone 12/07/18 11:22 Consult to Physician [CONS] Routine Comment: Consulting Provider: ANA CORTES Physician Instructions: Reason For Exam: hydranitis supprativa Primary care physician: OMAIRA CONTRERAS Hospitalization Reason for admission: SEPSIS Condition: Stable Hospital course: Patient is a 38 yo woman with a history of HIV on Triumeg, sees Dr. Pedro Ponce ( last VL <20, CD4 319), asthma, depression, hyperlipedemia, obesity, hypertension, diabetes, tobacco dependency, recurrent skin boils, bilateral groin hidradenitis most recently admitted on 10/24/18 for Sepsis, etiology left groin/thigh abscess due to hidradenitis.Her last urine cultures grew Escherichia coli and Proteus. Wound cultures from 06/02/18 and 06/21/18 both grew MSSA and group B strep. She presents to the ED on 11/10/18 with complaints of right flank pain, right lower quadrant pain, fever, chills, nausea/vomiting and dysuria. Pat ient states she also is continued to have some draining of small abscesses in the left groin right buttock and left axilla * Complains issues was addressed in detail * Patient was treated with abx, cefepim and changed to levaquin on discharge * Old records reviewed-previous urinalysis show postivity. Last culture urine culture positive 10/22/2018 +Proteus and E coli pansensitive. * non-obstructive/no Left hyponephrosis per Urology, Dr. Chen which is different from Radiologist's report. No surgical intervention needed per Dr. Chen * Insulin was adjusted and patient advised * She will continue ART therapy and follow with her ID doctors * She is follow at the woundcare center * She self discontinued some of her meds and will speak with her Psychiatrist. She was given 10 mins counselling on need to be complaint with medications and not self discontinue before speaking to her doctors -Sepsis due to acute UTI -Left Nephrolithiasis, Small 3mm left Kidney stone, -ARF, vasomotor nephropathy -Resolved -Diabetes mellitus, type 2, Uncontrolled diabetes -HIV (human immunodeficiency virus infection), -Nicotine dependence: Nicotine patch AND COUNSLLING GIVEN -Moderate malnutrition, -Obesity hypoventilation syndrome: -Hypertension: -Elevated transaminases level: - Hidrandenitis suppurative with left inner thigh abscess Disposition: -01 TO HOME OR SELFCARE Time spent for discharge: 35 MINS Core Measure Documentation - Palliative Care Palliative Care/ Comfort Measures: Not Applicable - Core Measures Any of the following diagnoses?: none Exam - Physical Exam Narrative exam: Gen: ill appearing, WDWN, NAD, Awake, Alert, Orientated HEENT: NCAT, EOMI, PERRL, OP Clear Neck: supple, no adenopathy, no thyromegaly, no JVD CVS/Heart: RRR, normal S1S2, pulses present bilaterally Chest/Lungs: CTA B, Symmetrical chest expansion, good air entry bilaterally GI/Abdomen: soft, NTND, good bowel sounds, no guarding or rebound /Bladder:+ bilateral suprapubic tenderness/CVA tenderness but no paraspinal tenderness Extermity/Skin: no c/c/e, swelling and induration with small purlent drainage on left axilla. Non tender, no warmth or redness MSK: FROM x 4 Neuro: CN 2-12 grossly intact, no new focal deficits Psych: calm - Constitutional Vitals: Temp Pulse Resp BP Pulse Ox 98.5 F 92 H 18 146/63 95 12/08/18 11:52 12/08/18 11:52 12/08/18 11:52 12/08/18 11:52 12/08/18 11:52 Plan Activity: advance as tolerated, fall precautions Diet: low fat, diabetic Wound: per wound nurse instructions Special Instructions: record daily weights, record daily BP diary, record blood sugar diary, smoking cessation Care Plan Goals: Compliance with medications and also outpatient follow ups Follow up with: OMAIRA CONTRERAS MD [Primary Care Provider] - 7 Days NENA YOUNG MD [Staff Physician] - 7 Days PEDRO PONCE MD [Staff Physician] - 7 Days SHANAE RIVAS MD [Staff Physician] - 7 Days MINEVA MD [Staff Physician] - 7 Days Prescriptions: levoFLOXacin [Levaquin] 750 mg PO QDAY #5 tablet
[2018-12-08 16:45] VITALS: BP 156/86
== END 2018-12-08 18:00 | disposition home or self-care (01) | DRG 974 ==
LOC: ED 19:46 → 4A 22:43
PROVIDERS: ADMIT Internal Medicine; ATTEND Internal Medicine
DX: A41.51 Sepsis due to Escherichia coli [E. coli] (principal); N17.0 Acute kidney failure with tubular necrosis; B20 Human immunodeficiency virus [HIV] disease; E66.2 Morbid (severe) obesity with alveolar hypoventilation; Z68.41 Body mass index [BMI] 40.0-44.9, adult; E44.0 Moderate protein-calorie malnutrition; L02.416 Cutaneous abscess of left lower limb; N13.6 Pyonephrosis; I10 Essential (primary) hypertension; J45.909 Unspecified asthma, uncomplicated; R74.0 Nonspecific elevation of levels of transaminase and lactic acid dehydrogenase [LDH]; E11.40 Type 2 diabetes mellitus with diabetic neuropathy, unspecified; F41.9 Anxiety disorder, unspecified; F17.210 Nicotine dependence, cigarettes, uncomplicated; F32.9 Major depressive disorder, single episode, unspecified; N20.0 Calculus of kidney; L73.2 Hidradenitis suppurativa; Z82.49 Family history of ischemic heart disease and other diseases of the circulatory system; Z88.2 Allergy status to sulfonamides; Z91.041 Radiographic dye allergy status; Z91.013 Allergy to seafood; Z79.899 Other long term (current) drug therapy; Z79.4 Long term (current) use of insulin; Z90.49 Acquired absence of other specified parts of digestive tract; Z90.710 Acquired absence of both cervix and uterus
CPT/HCPCS: 36415; 71045; 74176; 80048; 80053; 80074; 80076; 81001; 82140; 82805; 82962; 85007; 85025; 87040; 87086; 96365; 96375; G0378; J0692; J1644; J1815; J1885; J1956; J2270; J2405; J2543; J2765; J7030; J7040; J7070

== ENCOUNTER 2019-02-14 07:51 | Outpatient (CLI) | payer MEDICARE ==
[2019-02-14] MEDS ORDERED: LIDOCAINE (4%) 40 MG/ML TOPICAL SOLN 50 ML BOTTLE TP NR (08:30)
== END 2019-02-14 07:52 | disposition home or self-care (01) ==
LOC: WOUND 07:51
PROVIDERS: ATTEND Surgery
DX: L73.2 Hidradenitis suppurativa (principal); E10.9 Type 1 diabetes mellitus without complications; F41.9 Anxiety disorder, unspecified; E78.00 Pure hypercholesterolemia, unspecified; F17.200 Nicotine dependence, unspecified, uncomplicated; Z90.710 Acquired absence of both cervix and uterus
CPT/HCPCS: 99215; G0463

== ENCOUNTER 2019-04-15 13:09 | Outpatient (CLI) | payer MEDICARE ==
[2019-04-15 13:27] LABS: Basophils % (Auto) 0.2 % (0.0-1.8); Eosinophils % (Auto) 3.2 % (0.0-4.3); Hematocrit 36.8 % (30.3-42.9); Hemoglobin 12.7 gm/dl (10.1-14.3); Lymphocytes # (Auto) 2.6 K/mm3 (1.2-5.4); Lymphocytes % (Auto) 35.7 % (13.4-35.0); Mean Corpuscular HGB Conc 34 % (30-34); Mean Corpuscular Volume 96 fl (79-97); Monocytes # (Auto) 0.4 K/mm3 (0.0-0.8); Platelet Count 178 K/mm3 (140-440); Red Blood Count 3.84 M/mm3 (3.65-5.03)
[2019-04-15 13:28] LABS: Eosinophils # (Auto) 0.2 K/mm3 (0.0-0.4)
[2019-04-15 13:44] LABS: Alanine Aminotransferase 35 units/L (7-56); Albumin 3.6 g/dL (3.9-5); BUN/Creatinine Ratio 20; Blood Urea Nitrogen 16 mg/dL (7-17); Calcium 9.4 mg/dL (8.4-10.2); Hemolysis Index 6
--- NOTE | 2019-04-15 13:51 | XRay Report ---
CHEST 2 VIEWS INDICATION / CLINICAL INFORMATION: Z01.810 ENCOUNTER FOR PREPROCEDURAL CARDIOVASCULAR EXAMINATION. COMPARISON: Chest x-ray on 12/03/2018 FINDINGS: SUPPORT DEVICES: None. HEART / MEDIASTINUM: No significant abnormality. LUNGS / PLEURA: No significant pulmonary or pleural abnormality. No pneumothorax. ADDITIONAL FINDINGS: No significant additional findings. IMPRESSION: 1. No acute findings. Signer Name: Juan Carlos Velasquez MD Signed: 04/15/2019 1:47 PM Workstation Name: [id number]
== END 2019-04-15 13:10 | disposition home or self-care (01) ==
LOC: XRAY 13:09
PROVIDERS: ATTEND Internal Medicine
DX: Z13.29 Encounter for screening for other suspected endocrine disorder (principal); Z13.21 Encounter for screening for nutritional disorder; Z01.810 Encounter for preprocedural cardiovascular examination; E11.622 Type 2 diabetes mellitus with other skin ulcer; E78.5 Hyperlipidemia, unspecified; R79.89 Other specified abnormal findings of blood chemistry
CPT/HCPCS: 36415; 71046; 80053; 83036; 85025

== ENCOUNTER 2019-04-24 22:41 | Emergency (ER) | payer MEDICARE ==
--- NOTE | 2019-04-25 00:01 | XRay Report ---
CHEST PA AND LATERAL VIEWS INDICATION: cough and fever. COMPARISON: FINDINGS: Support devices: None. Heart: Within normal limits. Lungs/Pleura: No acute pulmonary or pleural findings. IMPRESSION: 1. No acute findings. Signer Name: Morris Schwarz MD Signed: 04/24/2019 11:57 PM Workstation Name: [id number]
--- NOTE | 2019-04-25 01:37 | Emergency Department Report ---
HPI - General Chief Complaint: Upper Respiratory Infection Time Seen by Provider: 04/25/19 01:22 - HPI HPI: Room 31 The patient is a 39-year-old female presenting with a chief complaint of cough congestion and shortness of breath. The patient states the past 3 days she's had a cough productive of green sputum. Patient missed chest pain with cough and shortness of breath. Patient admits to rhinorrhea and nasal congestion. Patient admits to fever 101F. Location: [See above] Duration: [See above] Quality: [See above] Severity: [See above] Timing: [See above] Context: [See above] Modifying factors: [See above] Associated signs and symptoms: [see above] ED Past Medical Hx - Past Medical History Hx Hypertension: Yes Hx Diabetes: Yes Hx Psychiatric Treatment: Yes (anxiety depression) Hx Asthma: Yes Hx HIV: Yes (last CD4 count within normal limits April 2019) Additional medical history: HIGH CHOLESTEROL - Surgical History Hx Cholecystectomy: Yes Additional Surgical History: d&c x1, insulin pump placement, TOTAL HYSTERECTOMY, boil removal to R inner thigh - Family History Family history: no significant - Social History Smoking Status: Current Every Day Smoker (1/3 pack per day) Substance Use Type: None (denies illicit drug use) - Medications Home Medications: Home Medications Medication Instructions Recorded Confirmed Last Taken Type Atorvastatin [Lipitor] 40 mg PO HS 04/13/13 04/15/19 09/08/17 History Abacavir/Dolutegravir/Lamivudi 1 each PO DAILY 07/10/15 04/15/19 09/08/17 History [Triumeq 600-50-300 mg Tablet] ARIPiprazole [Abilify TAB] 15 mg PO QDAY 06/02/18 04/15/19 Unknown History [place] Carbonate [Eskalith] 300 mg PO BID 06/02/18 04/15/19 Unknown History Mirtazapine 45 mg PO QHS 06/02/18 04/15/19 Unknown History buPROPion XL [Wellbutrin XL] 150 mg PO QDAY 06/02/18 04/15/19 Unknown History Gabapentin [Neurontin] 800 mg PO TID 12/04/18 04/15/19 Unknown History Cyclobenzaprine HCl [Flexeril 5 MG 5 mg PO QHS #10 tab 12/08/18 04/15/19 Unknown Rx TAB] ALBUTEROL NEB's [Proventil 0.083% 2.5 mg IH TID PRN 04/15/19 04/15/19 Unknown History NEBS] Dulaglutide [Trulicity] 0.75 mg SQ QWEEK 04/15/19 04/15/19 Unknown History Lispro Insulin [HumaLOG] 0 unit SQ DAILY 04/15/19 04/15/19 Unknown History Omeprazole 40 mg PO DAILY PRN 04/15/19 04/15/19 Unknown History Tapentadol HCl [Nucynta ER] 100 mg PO Q12H PRN 04/15/19 04/15/19 Unknown History Tapentadol HCl [Nucynta] 75 mg PO DAILY 04/15/19 04/15/19 Unknown History Trazodone HCl 150 mg PO QHS PRN 04/15/19 04/15/19 Unknown History lisinopriL [Zestril TAB] 40 mg PO QDAY 04/15/19 04/15/19 Unknown History Albuterol INH(or & Nicu Only) 2 puff IH QID PRN #8.5 gram 04/25/19 Unknown Rx [ProAir HFA Inhaler] Benzonatate [Tessalon Perles] 100 mg PO Q8HR #30 capsule 04/25/19 Unknown Rx HYDROcodone/APAP 5-325 [[place] 1 - 2 each PO Q6HR PRN #10 tablet 04/25/19 Unknown Rx 5/325] Ibuprofen [Motrin 800 MG tab] 800 mg PO Q8HR PRN #20 tablet 04/25/19 Unknown Rx levoFLOXacin [Levaquin TAB] 500 mg PO QDAY #10 tablet 04/25/19 Unknown Rx ED Review of Systems ROS: Stated complaint: FLU SX Other details as noted in HPI Constitutional: fever Eyes: denies: eye pain ENT: congestion Respiratory: cough Endocrine: no symptoms reported Gastrointestinal: denies: abdominal pain Genitourinary: denies: dysuria Musculoskeletal: myalgia Physical Exam - Physical Exam Vital Signs: Vital Signs 04/24/19 04/24/19 22:46 22:49 Temperature 99.3 F 99.3 F Pulse Rate 120 H 123 H Respiratory 18 18 Rate Blood Pressure 155/87 155/87 O2 Sat by Pulse 94 95 Oximetry Physical Exam: GENERAL: The patient is well-developed well-nourished female sitting on chair not appearing to be in acute distress. [] HEENT: Normocephalic. Atraumatic. Extraocular motions are intact. Nasal congestion NECK: Supple. Trachea midline CHEST/LUNGS: Clear to auscultation. There is no respiratory distress noted. Occasional cough HEART/CARDIOVASCULAR: Regular. There is no tachycardia. There is no gallop rub or murmur. ABDOMEN: Abdomen is soft, nontender. Patient has normal bowel sounds. There is no abdominal distention. SKIN: There is no rash. There is no edema. There is no diaphoresis. NEURO: The patient is awake, alert, and oriented. The patient is cooperative. The patient has normal speech MUSCULOSKELETAL:There is no evidence of acute injury. ED Course Vital Signs 04/24/19 04/24/19 22:46 22:49 Temperature 99.3 F 99.3 F Pulse Rate 120 H 123 H Respiratory 18 18 Rate Blood Pressure 155/87 155/87 O2 Sat by Pulse 94 95 Oximetry ED Medical Decision Making - Lab Data Laboratory Tests 04/25/19 Unknown Influenza A (Rapid) Negative Influenza B (Rapid) Negative - Radiology Data Radiology results: report reviewed (chest x-ray), image reviewed (chest x-ray) interpreted by me: Chest x-ray-no focal infiltrates, no pneumothorax [facility] [address] [place] [address] XRay Report Signed Patient: POLINA SIMS MR#: [id number] : 1980 Acct:[id number] Age/Sex: 39 / F ADM Date: 04/24/19 Loc: ED Attending Dr: Ordering Physician: LEANNA MOHAN NP Date of Service: 04/24/19 Procedure(s): XR chest routine 2V Accession Number(s): [id number] cc: LEANNA MOHAN NP Fluoro Time In Minutes: CHEST PA AND LATERAL VIEWS INDICATION: cough and fever. COMPARISON: FINDINGS: Support devices: None. Heart: Within normal limits. Lungs/Pleura: No acute pulmonary or pleural findings. IMPRESSION: 1. No acute findings. Signer Name: Morris Schwarz MD Signed: 04/24/2019 11:57 PM Workstation Name: [id number] Transcribed By: ROSIE Dictated By: Morris Schwarz MD Electronically Authenticated By: Morris Schwarz MD Signed Date/Time: 04/24/192356 DD/ 55 TD/TT: - Differential Diagnosis pneumonia, influenza, URI Critical care attestation.: If time is entered above; I have spent that time in minutes in the direct care of this critically ill patient, excluding procedure time. ED Disposition Clinical Impression: Acute bronchitis, URI (upper respiratory infection) Disposition: TO HOME OR SELFCARE Is pt being admited?: No Does the pt Need Aspirin: No Condition: Stable Instructions: Acute Bronchitis (ED) Additional Instructions: Return to the emergency department should you develop worsening symptoms, inability to tolerate food or liquids, high fever or any other concerns Prescriptions: levoFLOXacin [Levaquin TAB] 500 mg PO QDAY #10 tablet Ibuprofen [Motrin 800 MG tab] 800 mg PO Q8HR PRN #20 tablet PRN Reason: Pain, Moderate (4-6) HYDROcodone/APAP 5-325 [[place] 5/325] 1 - 2 each PO Q6HR PRN #10 tablet PRN Reason: Pain Albuterol INH(or & Nicu Only) [ProAir HFA Inhaler] 2 puff IH QID PRN #8.5 gram PRN Reason: Shortness Of Breath Benzonatate [Tessalon Perles] 100 mg PO Q8HR #30 capsule Referrals: ARAM PAN MD [Staff Physician] - 3-5 Days
[2019-04-25] MEDS ORDERED: SODIUM CHLORIDE 0.9% 1000 ML 1,000 ML IV ONE (01:38)
[2019-04-25 03:40] VITALS: BP 137/80
== END 2019-04-25 03:48 | disposition home or self-care (01) ==
LOC: ED 22:41
DX: J02.9 Acute pharyngitis, unspecified (principal); J06.9 Acute upper respiratory infection, unspecified; I10 Essential (primary) hypertension; E11.9 Type 2 diabetes mellitus without complications; F41.9 Anxiety disorder, unspecified; J45.909 Unspecified asthma, uncomplicated; E78.00 Pure hypercholesterolemia, unspecified; F17.210 Nicotine dependence, cigarettes, uncomplicated; Z88.2 Allergy status to sulfonamides; Z91.013 Allergy to seafood
CPT/HCPCS: 71046; 87400; 99284; J7030

== ENCOUNTER 2019-08-26 12:47 | Emergency (ER) | payer MEDICARE ==
[2019-08-26 13:01] VITALS: BP 140/83
[2019-08-26 13:53] LABS: Bacteria,Urine 4+ /HPF (Negative); Bilirubin,Urine NEG (Negative); Blood,Urine MOD (Negative); Color,Urine Yellow (Yellow); Urobilinogen,Urine < 2.0 mg/dL (<2.0)
[2019-08-26 13:55] LABS: WBC,Urine > 182.0 /HPF (0.0-6.0)
[2019-08-26] MEDS ORDERED: LIDOCAINE-MPF (1%) 10 MG/1 ML VIAL 5 ML INFILTRATI ONE (14:02)
--- NOTE | 2019-08-26 14:03 | Emergency Department Report ---
ED Female HPI - General Chief complaint: Abdominal Pain Stated complaint: ABD PAIN Time Seen by Provider: 08/26/19 13:57 Source: patient Mode of arrival: Ambulatory Limitations: No Limitations - History of Present Illness Initial comments: pt is a 39 yo female who presents to the ED with c/o lower abd discomfort and lower back discomfort that began three days ago. she has associated dysuria, urinary frequency, urinary urgency. she denies any vomiting, diarrhea, fever. PMHx HIV, HTN, DM, HLD, asthma. allergies: seafood, bactrim, metformin. she lin es humalog for DM. PSHx hysterectomy - Related Data Home Medications Medication Instructions Recorded Confirmed Last Taken Atorvastatin [Lipitor] 40 mg PO HS 04/13/13 04/15/19 09/08/17 Abacavir/Dolutegravir/Lamivudi 1 each PO DAILY 07/10/15 04/15/19 09/08/17 [Triumeq 600-50-300 mg Tablet] ARIPiprazole [Abilify TAB] 15 mg PO QDAY 06/02/18 04/15/19 Unknown [place] Carbonate [Eskalith] 300 mg PO BID 06/02/18 04/15/19 Unknown Mirtazapine 45 mg PO QHS 06/02/18 04/15/19 Unknown buPROPion XL [Wellbutrin XL] 150 mg PO QDAY 06/02/18 04/15/19 Unknown Gabapentin [Neurontin] 800 mg PO TID 12/04/18 04/15/19 Unknown ALBUTEROL NEB's [Proventil 0.083% 2.5 mg IH TID PRN 04/15/19 04/15/19 Unknown NEBS] Dulaglutide [Trulicity] 0.75 mg SQ QWEEK 04/15/19 04/15/19 Unknown Lispro Insulin [HumaLOG] 0 unit SQ DAILY 04/15/19 04/15/19 Unknown Omeprazole 40 mg PO DAILY PRN 04/15/19 04/15/19 Unknown Tapentadol HCl [Nucynta ER] 100 mg PO Q12H PRN 04/15/19 04/15/19 Unknown Tapentadol HCl [Nucynta] 75 mg PO DAILY 04/15/19 04/15/19 Unknown Trazodone HCl 150 mg PO QHS PRN 04/15/19 04/15/19 Unknown lisinopriL [Zestril TAB] 40 mg PO QDAY 04/15/19 04/15/19 Unknown Previous Rx's Medication Instructions Recorded Last Taken Type Cyclobenzaprine HCl [Flexeril 5 MG 5 mg PO QHS #10 tab 12/08/18 Unknown Rx TAB] Albuterol INH(or & Nicu Only) 2 puff IH QID PRN #8.5 gram 04/25/19 Unknown Rx [ProAir HFA Inhaler] Benzonatate [Tessalon Perles] 100 mg PO Q8HR #30 capsule 04/25/19 Unknown Rx HYDROcodone/APAP 5-325 [[place] 1 - 2 each PO Q6HR PRN #10 tablet 04/25/19 Unknown Rx 5/325] Ibuprofen [Motrin 800 MG tab] 800 mg PO Q8HR PRN #20 tablet 04/25/19 Unknown Rx levoFLOXacin [Levaquin TAB] 500 mg PO QDAY #10 tablet 04/25/19 Unknown Rx Acetaminophen/Codeine [Tylenol 1 tab PO Q6H PRN #10 tab 08/26/19 Unknown Rx /Codeine # 3 tab] Fluconazole [Diflucan TAB] 100 mg PO QDAY 1 Days #1 tablet 08/26/19 Unknown Rx Promethazine [Phenergan] 25 mg PO Q8HR PRN #8 tab 08/26/19 Unknown Rx cephALEXin [Keflex] 500 mg PO BID 10 Days #20 cap 08/26/19 Unknown Rx Allergies Allergy/AdvReac Type Severity Reaction Status Date / Time iodine Allergy Swelling Verified 08/26/19 12:57 sulfamethoxazole Allergy Rash Verified 08/26/19 12:57 [From Bactrim] trimethoprim [From Bactrim] Allergy Rash Verified 08/26/19 12:57 metformin AdvReac Nausea Verified 08/26/19 12:57 seafood Allergy Rash Uncoded 02/16/18 13:38 ED Review of Systems ROS: Stated complaint: ABD PAIN Other details as noted in HPI Comment: All other systems reviewed and negative ED Past Medical Hx - Past Medical History Hx Hypertension: Yes Hx Diabetes: Yes Hx Liver Disease: No Hx Renal Disease: No Hx Seizures: No Hx Psychiatric Treatment: Yes (anxiety depression) Hx Asthma: Yes Hx HIV: Yes (last CD4 count within normal limits April 2019) Additional medical history: HIGH CHOLESTEROL - Surgical History Hx Pacemaker: No Hx Internal Defibrillator: No Hx Cholecystectomy: Yes Additional Surgical History: d&c x1, insulin pump placement, TOTAL HYSTERECTOMY, boil removal to R inner thigh - Social History Smoking Status: Current Every Day Smoker Substance Use Type: None - Medications Home Medications: Home Medications Medication Instructions Recorded Confirmed Last Taken Type Atorvastatin [Lipitor] 40 mg PO HS 04/13/13 04/15/19 09/08/17 History Abacavir/Dolutegravir/Lamivudi 1 each PO DAILY 07/10/15 04/15/19 09/08/17 History [Triumeq 600-50-300 mg Tablet] ARIPiprazole [Abilify TAB] 15 mg PO QDAY 06/02/18 04/15/19 Unknown History [place] Carbonate [Eskalith] 300 mg PO BID 06/02/18 04/15/19 Unknown History Mirtazapine 45 mg PO QHS 06/02/18 04/15/19 Unknown History buPROPion XL [Wellbutrin XL] 150 mg PO QDAY 06/02/18 04/15/19 Unknown History Gabapentin [Neurontin] 800 mg PO TID 12/04/18 04/15/19 Unknown History Cyclobenzaprine HCl [Flexeril 5 MG 5 mg PO QHS #10 tab 12/08/18 04/15/19 Unknown Rx TAB] ALBUTEROL NEB's [Proventil 0.083% 2.5 mg IH TID PRN 04/15/19 04/15/19 Unknown History NEBS] Dulaglutide [Trulicity] 0.75 mg SQ QWEEK 04/15/19 04/15/19 Unknown History Lispro Insulin [HumaLOG] 0 unit SQ DAILY 04/15/19 04/15/19 Unknown History Omeprazole 40 mg PO DAILY PRN 04/15/19 04/15/19 Unknown History Tapentadol HCl [Nucynta ER] 100 mg PO Q12H PRN 04/15/19 04/15/19 Unknown History Tapentadol HCl [Nucynta] 75 mg PO DAILY 04/15/19 04/15/19 Unknown History Trazodone HCl 150 mg PO QHS PRN 04/15/19 04/15/19 Unknown History lisinopriL [Zestril TAB] 40 mg PO QDAY 04/15/19 04/15/19 Unknown History Albuterol INH(or & Nicu Only) 2 puff IH QID PRN #8.5 gram 04/25/19 Unknown Rx [ProAir HFA Inhaler] Benzonatate [Tessalon Perles] 100 mg PO Q8HR #30 capsule 04/25/19 Unknown Rx HYDROcodone/APAP 5-325 [[place] 1 - 2 each PO Q6HR PRN #10 tablet 04/25/19 Unknown Rx 5/325] Ibuprofen [Motrin 800 MG tab] 800 mg PO Q8HR PRN #20 tablet 04/25/19 Unknown Rx levoFLOXacin [Levaquin TAB] 500 mg PO QDAY #10 tablet 04/25/19 Unknown Rx Acetaminophen/Codeine [Tylenol 1 tab PO Q6H PRN #10 tab 08/26/19 Unknown Rx /Codeine # 3 tab] Fluconazole [Diflucan TAB] 100 mg PO QDAY 1 Days #1 tablet 08/26/19 Unknown Rx Promethazine [Phenergan] 25 mg PO Q8HR PRN #8 tab 08/26/19 Unknown Rx cephALEXin [Keflex] 500 mg PO BID 10 Days #20 cap 08/26/19 Unknown Rx ED Physical Exam - General Limitations: No Limitations General appearance: alert, in no apparent distress - Head Head exam: Present: atraumatic, normocephalic - Eye Eye exam: Present: normal appearance - ENT ENT exam: Present: mucous membranes moist - Respiratory Respiratory exam: Present: normal lung sounds bilaterally. Absent: respiratory distress, wheezes, rales, rhonchi, stridor, chest wall tenderness, accessory muscle use, decreased breath sounds, prolonged expiratory - Cardiovascular Cardiovascular Exam: Present: regular rate, normal rhythm, normal heart sounds. Absent: systolic murmur, diastolic murmur, rubs, gallop - GI/Abdominal GI/Abdominal exam: Present: soft, tenderness (suprapubic), normal bowel sounds. Absent: distended, guarding, rebound, rigid - Back Exam Back exam: Absent: CVA tenderness (R), CVA tenderness (L) - Neurological Exam Neurological exam: Present: alert, oriented X3 - Psychiatric Psychiatric exam: Present: normal affect, normal mood - Skin Skin exam: Present: warm, dry, intact ED Course Vital Signs 08/26/19 08/26/19 13:00 14:23 Temperature 99.1 F Pulse Rate 102 H 95 H Respiratory 18 Rate Blood Pressure 140/83 O2 Sat by Pulse 97 98 Oximetry ED Medical Decision Making - Lab Data Lab Results 08/26/19 Range/Units 13:00 Urine Color Yellow (Yellow) Urine Turbidity Cloudy (Clear) Urine pH 6.0 (5.0-7.0) Ur Specific [place] 1.021 (1.003-1.030) Urine Protein 100 mg/dl (Negative) mg/dL Urine Glucose (UA) >=500 (Negative) mg/dL Urine Ketones Neg (Negative) mg/dL Urine Blood Mod (Negative) Urine Nitrite Pos (Negative) Urine Bilirubin Neg (Negative) Urine Urobilinogen < 2.0 (<2.0) mg/dL Ur Leukocyte Esterase Lg (Negative) Urine WBC (Auto) > 182.0 H (0.0-6.0) /HPF Urine RBC (Auto) 40.0 (0.0-6.0) /HPF U Epithel Cells (Auto) 7.0 (0-13.0) /HPF Urine Bacteria (Auto) 4+ (Negative) /HPF Urine WBC Clumps 3+ /HPF Vital Signs 08/26/19 08/26/19 13:00 14:23 Temperature 99.1 F Pulse Rate 102 H 95 H Respiratory 18 Rate Blood Pressure 140/83 O2 Sat by Pulse 97 98 Oximetry - Medical Decision Making pt is a 39 yo female who presents to the ED with c/o lower abd discomfort and lower back discomfort that began three days ago. she has associated dysuria, urinary frequency, urinary urgency. she denies any vomiting, diarrhea, fever. PMHx HIV, HTN, DM, HLD, asthma. allergies: seafood, bactrim, metformin. she lin es humalog for DM. PSHx hysterectomy. Initial triage vitals with tachycardia which improved upon repeat. On exam suprapubic tenderness to palpation,. UA shows significant UTI with many white blood cells and large leukocyte esterase and nitrite positive. Patient given 1 g of ceftriaxone IM while in the emergency department. Patient given prescription for Keflex, Phenergan, Tylenol with codeine. Patient also given prescription for fluconazole because she states that she gets yeast infection with antibiotics. Advised patient please take medication as prescribed. do not drive or operate heavy machinery while taking pain medication. increase your water intake. follow up with your primary care doctor and have your urine retested for clearance of bacteria. return to the emergency room for any new or worsening symptoms. Critical care attestation.: If time is entered above; I have spent that time in minutes in the direct care of this critically ill patient, excluding procedure time. ED Disposition Clinical Impression: UTI (urinary tract infection) Qualifiers: Urinary tract infection type: acute cystitis Hematuria presence: with hematuria Qualified Code(s): N30.01 - Acute cystitis with hematuria Disposition: TO HOME OR SELFCARE Is pt being admited?: No Does the pt Need Aspirin: No Condition: Stable Instructions: Urinary Tract Infection in Women (ED) Additional Instructions: please take medication as prescribed. do not drive or operate heavy machinery while taking pain medication. increase your water intake. follow up with your primary care doctor and have your urine retested for clearance of bacteria. return to the emergency room for any new or worsening symptoms. Prescriptions: Fluconazole [Diflucan TAB] 100 mg PO QDAY 1 Days #1 tablet cephALEXin [Keflex] 500 mg PO BID 10 Days #20 cap Promethazine [Phenergan] 25 mg PO Q8HR PRN #8 tab PRN Reason: Nausea Acetaminophen/Codeine [Tylenol /Codeine # 3 tab] 1 tab PO Q6H PRN #10 tab PRN Reason: Pain , Severe (7-10) Referrals: OMAIRA CONTRERAS MD [Primary Care Provider] - 3-5 Days Time of Disposition: 14:03 Print Language: NAURUAN
== END 2019-08-26 14:41 | disposition home or self-care (01) ==
LOC: ED 12:47
DX: N39.0 Urinary tract infection, site not specified (principal); I10 Essential (primary) hypertension; E11.9 Type 2 diabetes mellitus without complications; F32.9 Major depressive disorder, single episode, unspecified; J45.909 Unspecified asthma, uncomplicated; F17.200 Nicotine dependence, unspecified, uncomplicated; Z90.49 Acquired absence of other specified parts of digestive tract; Z90.710 Acquired absence of both cervix and uterus; Z98.890 Other specified postprocedural states; Z79.1 Long term (current) use of non-steroidal anti-inflammatories (NSAID); Z79.899 Other long term (current) drug therapy; Z91.013 Allergy to seafood; Z88.8 Allergy status to other drugs, medicaments and biological substances; Z21 Asymptomatic human immunodeficiency virus [HIV] infection status
CPT/HCPCS: 81001; 87086; 96372; 99283; J0696

== ENCOUNTER 2019-10-08 11:21 | Emergency (ER) | payer MEDICARE ==
[2019-10-08 12:03] LABS: Basophils % (Auto) 0.2 % (0.0-1.8); Eosinophils # (Auto) 0.1 K/mm3 (0.0-0.4); Eosinophils % (Auto) 2.1 % (0.0-4.3); Hematocrit 38.6 % (30.3-42.9); Hemoglobin 12.8 gm/dl (10.1-14.3); Lymphocytes # (Auto) 2.3 K/mm3 (1.2-5.4); Mean Corpuscular HGB Conc 33 % (30-34); Mean Corpuscular Volume 100 fl (79-97); Monocytes # (Auto) 0.4 K/mm3 (0.0-0.8); Platelet Count 151 K/mm3 (140-440); Red Blood Count 3.86 M/mm3 (3.65-5.03); Red Cell Distribution Width 15.1 % (13.2-15.2)
[2019-10-08 12:15] LABS: Calcium 9.5 mg/dL (8.4-10.2)
[2019-10-08 12:59] LABS: Bacteria,Urine 1+ /HPF (Negative); Bilirubin,Urine NEG (Negative); Blood,Urine SM (Negative); Color,Urine Straw (Yellow); Mucus,Urine FEW /HPF; Urobilinogen,Urine < 2.0 mg/dL (<2.0)
[2019-10-08] MEDS ORDERED: KETOROLAC 30 MG/1 ML INJ IV ONE (13:22)
[2019-10-08] MEDS ORDERED: SODIUM CHLORIDE 0.9% 1000 ML 1,000 ML IV ONE (13:22)
[2019-10-08] MEDS ORDERED: INSULIN REGULAR, HUMAN 100 UNITS/1 ML IV ONE (13:22)
[2019-10-08] MEDS ORDERED: cefTRIAXone/NS 1 GM/50 ML 1 GM/50 ML BAG IV ONE (13:22)
[2019-10-08] MEDS ORDERED: ONDANSETRON 4 MG/2 ML INJ IV ONE (14:04)
[2019-10-08] MEDS ORDERED: MORPHINE 4 MG/1 ML INJ IV ONE (14:04)
[2019-10-08] MEDS ORDERED: diphenhydrAMINE 50 MG/ML VIAL IV ONE (14:38)
[2019-10-08] MEDS ORDERED: diphenhydrAMINE 50 MG/ML VIAL ONE (14:40)
--- NOTE | 2019-10-08 15:37 | Emergency Department Report ---
ED Female HPI - General Chief complaint: Urogenital-Female Stated complaint: UTI Time Seen by Provider: 10/08/19 13:08 Source: patient Mode of arrival: Ambulatory Limitations: No Limitations - History of Present Illness Initial comments: 39-year-old female the past medical history of asthma, insulin-dependent diabetes (patient wears insulin pump), HIV was CD4 greater than 200, hypertension, anxiety/depression, and elevated cholesterol presents to the hospital complaining of pelvic pain and pain with urination for the last 3 days. Patient denies nausea, vomiting, fever, or hematuria. Patient feels like she has a UTI. She has been compliant with her medications. - Related Data Home Medications Medication Instructions Recorded Confirmed Last Taken Atorvastatin [Lipitor] 40 mg PO HS 04/13/13 04/15/19 09/08/17 Abacavir/Dolutegravir/Lamivudi 1 each PO DAILY 07/10/15 04/15/19 09/08/17 [Triumeq 600-50-300 mg Tablet] ARIPiprazole [Abilify TAB] 15 mg PO QDAY 06/02/18 04/15/19 Unknown [place] Carbonate [Eskalith] 300 mg PO BID 06/02/18 04/15/19 Unknown Mirtazapine 45 mg PO QHS 06/02/18 04/15/19 Unknown buPROPion XL [Wellbutrin XL] 150 mg PO QDAY 06/02/18 04/15/19 Unknown Gabapentin [Neurontin] 800 mg PO TID 12/04/18 04/15/19 Unknown ALBUTEROL NEB's [Proventil 0.083% 2.5 mg IH TID PRN 04/15/19 04/15/19 Unknown NEBS] Dulaglutide [Trulicity] 0.75 mg SQ QWEEK 04/15/19 04/15/19 Unknown Lispro Insulin [HumaLOG] 0 unit SQ DAILY 04/15/19 04/15/19 Unknown Omeprazole 40 mg PO DAILY PRN 04/15/19 04/15/19 Unknown Tapentadol HCl [Nucynta ER] 100 mg PO Q12H PRN 04/15/19 04/15/19 Unknown Tapentadol HCl [Nucynta] 75 mg PO DAILY 04/15/19 04/15/19 Unknown Trazodone HCl 150 mg PO QHS PRN 04/15/19 04/15/19 Unknown lisinopriL [Zestril TAB] 40 mg PO QDAY 04/15/19 04/15/19 Unknown Previous Rx's Medication Instructions Recorded Last Taken Type Cyclobenzaprine HCl [Flexeril 5 MG 5 mg PO QHS #10 tab 12/08/18 Unknown Rx TAB] Albuterol INH(or & Nicu Only) 2 puff IH QID PRN #8.5 gram 04/25/19 Unknown Rx [ProAir HFA Inhaler] Benzonatate [Tessalon Perles] 100 mg PO Q8HR #30 capsule 04/25/19 Unknown Rx HYDROcodone/APAP 5-325 [[place] 1 - 2 each PO Q6HR PRN #10 tablet 04/25/19 Unknown Rx 5/325] Ibuprofen [Motrin 800 MG tab] 800 mg PO Q8HR PRN #20 tablet 04/25/19 Unknown Rx levoFLOXacin [Levaquin TAB] 500 mg PO QDAY #10 tablet 04/25/19 Unknown Rx Acetaminophen/Codeine [Tylenol 1 tab PO Q6H PRN #10 tab 08/26/19 Unknown Rx /Codeine # 3 tab] Fluconazole [Diflucan TAB] 100 mg PO QDAY 1 Days #1 tablet 08/26/19 Unknown Rx Promethazine [Phenergan] 25 mg PO Q8HR PRN #8 tab 08/26/19 Unknown Rx cephALEXin [Keflex] 500 mg PO BID 10 Days #20 cap 08/26/19 Unknown Rx HYDROcodone/APAP 5-325 [[place] 1 each PO Q6HR PRN #10 tablet 10/08/19 Unknown Rx 5/325] cephALEXin [Keflex] 500 mg PO Q12HR #14 cap 10/08/19 Unknown Rx Allergies Allergy/AdvReac Type Severity Reaction Status Date / Time iodine Allergy Swelling Verified 08/26/19 12:57 sulfamethoxazole Allergy Rash Verified 08/26/19 12:57 [From Bactrim] trimethoprim [From Bactrim] Allergy Rash Verified 08/26/19 12:57 metformin AdvReac Nausea Verified 08/26/19 12:57 seafood Allergy Rash Uncoded 02/16/18 13:38 ED Review of Systems ROS: Stated complaint: UTI Other details as noted in HPI Comment: All other systems reviewed and negative ED Past Medical Hx - Past Medical History Previous Medical History?: Yes Hx Hypertension: Yes Hx Diabetes: Yes Hx Liver Disease: No Hx Renal Disease: No Hx Seizures: No Hx Psychiatric Treatment: Yes (anxiety depression) Hx Asthma: Yes Hx HIV: Yes (last CD4 count within normal limits April 2019) Additional medical history: HIGH CHOLESTEROL - Surgical History Past Surgical History?: Yes Hx Pacemaker: No Hx Internal Defibrillator: No Hx Cholecystectomy: Yes Additional Surgical History: d&c x1, insulin pump placement, TOTAL HYSTERECTOMY, boil removal to R inner thigh - Social History Smoking Status: Current Every Day Smoker Substance Use Type: None - Medications Home Medications: Home Medications Medication Instructions Recorded Confirmed Last Taken Type Atorvastatin [Lipitor] 40 mg PO HS 04/13/13 04/15/19 09/08/17 History Abacavir/Dolutegravir/Lamivudi 1 each PO DAILY 07/10/15 04/15/19 09/08/17 History [Triumeq 600-50-300 mg Tablet] ARIPiprazole [Abilify TAB] 15 mg PO QDAY 06/02/18 04/15/19 Unknown History [place] Carbonate [Eskalith] 300 mg PO BID 06/02/18 04/15/19 Unknown History Mirtazapine 45 mg PO QHS 06/02/18 04/15/19 Unknown History buPROPion XL [Wellbutrin XL] 150 mg PO QDAY 06/02/18 04/15/19 Unknown History Gabapentin [Neurontin] 800 mg PO TID 12/04/18 04/15/19 Unknown History Cyclobenzaprine HCl [Flexeril 5 MG 5 mg PO QHS #10 tab 12/08/18 04/15/19 Unknown Rx TAB] ALBUTEROL NEB's [Proventil 0.083% 2.5 mg IH TID PRN 04/15/19 04/15/19 Unknown History NEBS] Dulaglutide [Trulicity] 0.75 mg SQ QWEEK 04/15/19 04/15/19 Unknown History Lispro Insulin [HumaLOG] 0 unit SQ DAILY 04/15/19 04/15/19 Unknown History Omeprazole 40 mg PO DAILY PRN 04/15/19 04/15/19 Unknown History Tapentadol HCl [Nucynta ER] 100 mg PO Q12H PRN 04/15/19 04/15/19 Unknown History Tapentadol HCl [Nucynta] 75 mg PO DAILY 04/15/19 04/15/19 Unknown History Trazodone HCl 150 mg PO QHS PRN 04/15/19 04/15/19 Unknown History lisinopriL [Zestril TAB] 40 mg PO QDAY 04/15/19 04/15/19 Unknown History Albuterol INH(or & Nicu Only) 2 puff IH QID PRN #8.5 gram 04/25/19 Unknown Rx [ProAir HFA Inhaler] Benzonatate [Tessalon Perles] 100 mg PO Q8HR #30 capsule 04/25/19 Unknown Rx HYDROcodone/APAP 5-325 [[place] 1 - 2 each PO Q6HR PRN #10 tablet 04/25/19 Unknown Rx 5/325] Ibuprofen [Motrin 800 MG tab] 800 mg PO Q8HR PRN #20 tablet 04/25/19 Unknown Rx levoFLOXacin [Levaquin TAB] 500 mg PO QDAY #10 tablet 04/25/19 Unknown Rx Acetaminophen/Codeine [Tylenol 1 tab PO Q6H PRN #10 tab 08/26/19 Unknown Rx /Codeine # 3 tab] Fluconazole [Diflucan TAB] 100 mg PO QDAY 1 Days #1 tablet 08/26/19 Unknown Rx Promethazine [Phenergan] 25 mg PO Q8HR PRN #8 tab 08/26/19 Unknown Rx cephALEXin [Keflex] 500 mg PO BID 10 Days #20 cap 08/26/19 Unknown Rx HYDROcodone/APAP 5-325 [[place] 1 each PO Q6HR PRN #10 tablet 10/08/19 Unknown Rx 5/325] cephALEXin [Keflex] 500 mg PO Q12HR #14 cap 10/08/19 Unknown Rx ED Physical Exam - General Limitations: No Limitations - Other Other exam information: General: No acute distress Head: Atraumatic Eyes: normal appearance ENT: Moist mucous membranes Neck: Normal appearance, no midline tenderness Chest: Clear to auscultation bilaterally CV: Regular rate and rhythm Abdomen: Soft, normal bowel sounds, suprapubic tenderness, nondistended, no rebound or guarding Back: Normal inspection Extremity: Normal inspection, full range of motion Neuro: Alert O x 3, no facial asymmetry, speech clear, no gross motor sensory deficit Psych: Appropriate behavior Skin: No rash ED Course Vital Signs 10/08/19 10/08/19 10/08/19 11:25 13:14 13:16 Temperature 98.8 F Pulse Rate 104 H 93 H Respiratory 15 16 Rate Blood Pressure 228/107 196/89 Blood Pressure 196/89 [Right] O2 Sat by Pulse 99 100 Oximetry 10/08/19 10/08/19 13:30 14:00 Temperature Pulse Rate Respiratory Rate Blood Pressure 157/89 166/105 Blood Pressure [Right] O2 Sat by Pulse 98 98 Oximetry ED Medical Decision Making - Lab Data Result diagrams: 10/08/19 11:44 10/08/19 11:44 Lab Results 10/08/19 10/08/19 10/08/19 Range/Units 11:44 11:44 11:44 WBC 6.2 (4.5-11.0) K/mm3 RBC 3.86 (3.65-5.03) M/mm3 Hgb 12.8 (10.1-14.3) gm/dl Hct 38.6 (30.3-42.9) % MCV 100 H (79-97) fl MCH 33 H (28-32) pg MCHC 33 (30-34) % RDW 15.1 (13.2-15.2) % Plt Count 151 (140-440) K/mm3 Lymph % (Auto) 37.0 H (13.4-35.0) % Mineral % (Auto) 6.0 (0.0-7.3) % Eos % (Auto) 2.1 (0.0-4.3) % Baso % (Auto) 0.2 (0.0-1.8) % Lymph # 2.3 (1.2-5.4) K/mm3 Mineral # 0.4 (0.0-0.8) K/mm3 Eos # 0.1 (0.0-0.4) K/mm3 Baso # 0.0 (0.0-0.1) K/mm3 Seg Neutrophils % 54.7 (40.0-70.0) % Seg Neutrophils # 3.4 (1.8-7.7) K/mm3 VBG pH (7.320-7.420) Sodium 134 L (137-145) mmol/L Potassium 4.8 (3.6-5.0) mmol/L Chloride 101.6 (98-107) mmol/L Carbon Dioxide 20 L (22-30) mmol/L Anion Gap 17 mmol/L BUN 18 H (7-17) mg/dL Creatinine 1.1 (0.7-1.2) mg/dL Estimated GFR 56 ml/min BUN/Creatinine Ratio 16 % Glucose 568 H* (65-100) mg/dL POC Glucose (70-105) Calcium 9.5 (8.4-10.2) mg/dL HCG, Quant < 2 (0-4) mIU/mL Urine Color (Yellow) Urine Turbidity (Clear) Urine pH (5.0-7.0) Ur Specific [place] (1.003-1.030) Urine Protein (Negative) mg/dL Urine Glucose (UA) (Negative) mg/dL Urine Ketones (Negative) mg/dL Urine Blood (Negative) Urine Nitrite (Negative) Urine Bilirubin (Negative) Urine Urobilinogen (<2.0) mg/dL Ur Leukocyte Esterase (Negative) Urine WBC (Auto) (0.0-6.0) /HPF Urine RBC (Auto) (0.0-6.0) /HPF U Epithel Cells (Auto) (0-13.0) /HPF Urine Bacteria (Auto) (Negative) /HPF Urine Mucus /HPF 10/08/19 10/08/19 10/08/19 Range/Units 11:44 11:45 11:52 WBC (4.5-11.0) K/mm3 RBC (3.65-5.03) M/mm3 Hgb (10.1-14.3) gm/dl Hct (30.3-42.9) % MCV (79-97) fl MCH (28-32) pg MCHC (30-34) % RDW (13.2-15.2) % Plt Count (140-440) K/mm3 Lymph % (Auto) (13.4-35.0) % Mineral % (Auto) (0.0-7.3) % Eos % (Auto) (0.0-4.3) % Baso % (Auto) (0.0-1.8) % Lymph # (1.2-5.4) K/mm3 Mineral # (0.0-0.8) K/mm3 Eos # (0.0-0.4) K/mm3 Baso # (0.0-0.1) K/mm3 Seg Neutrophils % (40.0-70.0) % Seg Neutrophils # (1.8-7.7) K/mm3 VBG pH 7.290 L (7.320-7.420) Sodium (137-145) mmol/L Potassium (3.6-5.0) mmol/L Chloride (98-107) mmol/L Carbon Dioxide (22-30) mmol/L Anion Gap mmol/L BUN (7-17) mg/dL Creatinine (0.7-1.2) mg/dL Estimated GFR ml/min BUN/Creatinine Ratio % Glucose (65-100) mg/dL POC Glucose 484 H (70-105) Calcium (8.4-10.2) mg/dL HCG, Quant (0-4) mIU/mL Urine Color Straw (Yellow) Urine Turbidity Slightly-cloudy (Clear) Urine pH 6.0 (5.0-7.0) Ur Specific [place] 1.023 (1.003-1.030) Urine Protein 100 mg/dl (Negative) mg/dL Urine Glucose (UA) >=500 (Negative) mg/dL Urine Ketones Neg (Negative) mg/dL Urine Blood Sm (Negative) Urine Nitrite Neg (Negative) Urine Bilirubin Neg (Negative) Urine Urobilinogen < 2.0 (<2.0) mg/dL Ur Leukocyte Esterase Mod (Negative) Urine WBC (Auto) 52.0 H (0.0-6.0) /HPF Urine RBC (Auto) 3.0 (0.0-6.0) /HPF U Epithel Cells (Auto) 2.0 (0-13.0) /HPF Urine Bacteria (Auto) 1+ (Negative) /HPF Urine Mucus Few /HPF 10/08/19 10/08/19 Range/Units 13:24 15:35 WBC (4.5-11.0) K/mm3 RBC (3.65-5.03) M/mm3 Hgb (10.1-14.3) gm/dl Hct (30.3-42.9) % MCV (79-97) fl MCH (28-32) pg MCHC (30-34) % RDW (13.2-15.2) % Plt Count (140-440) K/mm3 Lymph % (Auto) (13.4-35.0) % Mineral % (Auto) (0.0-7.3) % Eos % (Auto) (0.0-4.3) % Baso % (Auto) (0.0-1.8) % Lymph # (1.2-5.4) K/mm3 Mineral # (0.0-0.8) K/mm3 Eos # (0.0-0.4) K/mm3 Baso # (0.0-0.1) K/mm3 Seg Neutrophils % (40.0-70.0) % Seg Neutrophils # (1.8-7.7) K/mm3 VBG pH (7.320-7.420) Sodium (137-145) mmol/L Potassium (3.6-5.0) mmol/L Chloride (98-107) mmol/L Carbon Dioxide (22-30) mmol/L Anion Gap mmol/L BUN (7-17) mg/dL Creatinine (0.7-1.2) mg/dL Estimated GFR ml/min BUN/Creatinine Ratio % Glucose (65-100) mg/dL POC Glucose 446 H 247 H (70-105) Calcium (8.4-10.2) mg/dL HCG, Quant (0-4) mIU/mL Urine Color (Yellow) Urine Turbidity (Clear) Urine pH (5.0-7.0) Ur Specific [place] (1.003-1.030) Urine Protein (Negative) mg/dL Urine Glucose (UA) (Negative) mg/dL Urine Ketones (Negative) mg/dL Urine Blood (Negative) Urine Nitrite (Negative) Urine Bilirubin (Negative) Urine Urobilinogen (<2.0) mg/dL Ur Leukocyte Esterase (Negative) Urine WBC (Auto) (0.0-6.0) /HPF Urine RBC (Auto) (0.0-6.0) /HPF U Epithel Cells (Auto) (0-13.0) /HPF Urine Bacteria (Auto) (Negative) /HPF Urine Mucus /HPF - Medical Decision Making Patient noted to be hyperglycemic. She has a very minimal decrease in CO2 and v enous pH but no ketones in the urine. Patient also does not feel ill as she did with her typical DKA episodes in the past. In the ED she received insulin, normal saline, and 1 dose of IV Rocephin as well as Toradol morphine and Zofran for pain. Patient developed itching after morphine and received Benadryl norco prior to d/c Critical Care Time: No Critical care attestation.: If time is entered above; I have spent that time in minutes in the direct care of this critically ill patient, excluding procedure time. ED Disposition Clinical Impression: Hyperglycemia due to type 1 diabetes mellitus, UTI (urinary tract infection) Disposition: TO HOME OR SELFCARE Is pt being admited?: No Does the pt Need Aspirin: No Condition: Stable Instructions: Diabetes Mellitus Type 1 in Adults (ED), Urinary Tract Infection in Women (ED) Additional Instructions: Take the medication as prescribed. Follow-up with your doctor or doctor/clinic provided. Return if symptoms worsen as indicated by your discharge instructions. Prescriptions: cephALEXin [Keflex] 500 mg PO Q12HR #14 cap HYDROcodone/APAP 5-325 [[place] 5/325] 1 each PO Q6HR PRN #10 tablet PRN Reason: Pain Referrals: PRIMARY CARE, [Primary Care Provider] - 3-5 Days Time of Disposition: 16:00
[2019-10-08] MEDS ORDERED: HYDROcodone/ACETAMINOPHEN 5-325 MG TAB PO ONE (15:56)
[2019-10-08 16:54] VITALS: BP 151/88
== END 2019-10-08 16:40 | disposition home or self-care (01) ==
LOC: ED 11:21
DX: E10.65 Type 1 diabetes mellitus with hyperglycemia (principal); N39.0 Urinary tract infection, site not specified; F41.9 Anxiety disorder, unspecified; F17.200 Nicotine dependence, unspecified, uncomplicated; J45.909 Unspecified asthma, uncomplicated; F32.9 Major depressive disorder, single episode, unspecified; Z21 Asymptomatic human immunodeficiency virus [HIV] infection status; Z90.710 Acquired absence of both cervix and uterus; Z98.890 Other specified postprocedural states; Z91.013 Allergy to seafood; Z88.2 Allergy status to sulfonamides; Z88.8 Allergy status to other drugs, medicaments and biological substances
CPT/HCPCS: 36415; 80048; 81001; 82805; 82962; 84702; 85025; 87076; 87086; 87186; 96365; 96375; 99284; J0696; J1200; J2270; J2405; J7030; J1815

== ENCOUNTER 2020-06-06 19:24 | Inpatient (IN) | payer MEDICARE ==
[2020-06-06] MEDS ORDERED: cefTRIAXone/NS 1 GM/50 ML 1 GM/50 ML BAG IV ONE (19:55)
--- NOTE | 2020-06-06 19:58 | Event Note ---
ED Screening Note ED Screening Note: pt presents for lower abd pain and lower back pain that began yesterday she states she had urinary symptoms x1 week has associated dysuria, urinary frequency, dark and odor to urine no n/v/d, no abnormal vaginal discharge hx of DM, states BG has been 400-500 hx of pyelonephritis This initial assessment/diagnostic orders/clinical plan/treatment(s) is/are subject to change based on patients health status, clinical progression and re- assessment by fellow clinical providers in the ED. Further treatment and workup at subsequent clinical providers discretion. Patient/guardian urged not to elope from the ED as their condition may be serious if not clinically assessed and managed. Initial orders include: code sepsis
[2020-06-06] MEDS ORDERED: SODIUM CHLORIDE 0.9% 1000 ML IV SOLN IV ONE (20:00)
[2020-06-06 20:10] LABS: Basophils % (Auto) 0.2 % (0.0-1.8); Eosinophils # (Auto) 0.1 K/mm3 (0.0-0.4); Eosinophils % (Auto) 0.6 % (0.0-4.3); Hemoglobin 12.4 gm/dl (10.1-14.3); Lymphocytes # (Auto) 2.5 K/mm3 (1.2-5.4); Lymphocytes % (Auto) 18.2 % (13.4-35.0); Mean Corpuscular HGB Conc 34 % (30-34); Mean Corpuscular Volume 101 fl (79-97); Monocytes # (Auto) 0.8 K/mm3 (0.0-0.8); Monocytes % (Auto) 5.9 % (0.0-7.3); Platelet Count 148 K/mm3 (140-440); Red Blood Count 3.68 M/mm3 (3.65-5.03); Red Cell Distribution Width 13.9 % (13.2-15.2)
[2020-06-06 20:32] LABS: Albumin 3.7 g/dL (3.9-5); Calcium 9.1 mg/dL (8.4-10.2)
[2020-06-06] MEDS ORDERED: ONDANSETRON 4 MG/2 ML INJ ONE (21:27)
[2020-06-06] MEDS ORDERED: MORPHINE 4 MG/1 ML INJ ONE (21:27)
[2020-06-06] MEDS ORDERED: MORPHINE 4 MG/1 ML INJ IV ONE (21:29)
[2020-06-06] MEDS ORDERED: ONDANSETRON 4 MG/2 ML INJ IV ONE (21:29)
--- NOTE | 2020-06-06 21:33 | Emergency Department Report ---
ED Abdominal Pain HPI - General Chief Complaint: Fever Stated Complaint: LOWER ABD PAIN Time Seen by Provider: 06/06/20 19:54 Source: patient Mode of arrival: Ambulatory Limitations: No Limitations - History of Present Illness Initial Comments: Patient is 40 years old female with history of diabetes and hypertension. Patient is noncompliant with her medication. Patient presented to the ER complaining of bilateral flank pain and suprapubic pain. Patient stated that symptoms been going on for 2 to 3 days. Patient also presented with fever, nausea and vomiting. Patient also reported dysuria and frequency of urination. Patient denied any chest pain or shortness of breath. No vaginal discharge. MD Complaint: abdominal pain, flank pain -: days(s) Location: suprapubic, bilateral flank Radiation: suprapubic Migration to: no migration Severity: moderate Severity scale (0 -10): 6 Quality: sharp - Related Data Home Medications Medication Instructions Recorded Confirmed Last Taken Abacavir/Dolutegravir/Lamivudi 1 each PO DAILY 07/10/15 12/29/19 09/08/17 [Triumeq 600-50-300 mg Tablet] buPROPion XL [Wellbutrin XL] 150 mg PO QDAY 06/02/18 04/15/19 Unknown ALBUTEROL NEB's [Proventil 0.083% 2.5 mg IH TID PRN 04/15/19 04/15/19 Unknown NEBS] Lispro Insulin [HumaLOG] 0 unit SQ DAILY 04/15/19 04/15/19 12/29/19 Omeprazole 40 mg PO DAILY 04/15/19 12/29/19 Unknown Tapentadol HCl [Nucynta ER] 100 mg PO Q12H PRN 04/15/19 04/15/19 Unknown Tapentadol HCl [Nucynta] 75 mg PO DAILY 04/15/19 04/15/19 Unknown lisinopriL [Zestril TAB] 40 mg PO QDAY 04/15/19 12/29/19 Unknown Previous Rx's Medication Instructions Recorded Last Taken Type Cyclobenzaprine HCl [Flexeril 5 MG 5 mg PO QHS #10 tab 12/08/18 Unknown Rx TAB] Albuterol Mdi (or & Nicu Only) 2 puff IH QID PRN #8.5 gram 04/25/19 Unknown Rx [ProAir HFA Inhaler] Benzonatate [Tessalon Perles] 100 mg PO Q8HR #30 capsule 04/25/19 Unknown Rx Ibuprofen [Motrin 800 MG tab] 800 mg PO Q8HR PRN #20 tablet 04/25/19 Unknown Rx Fluconazole [Diflucan TAB] 100 mg PO QDAY 1 Days #1 tablet 08/26/19 Unknown Rx Promethazine [Phenergan] 25 mg PO Q8HR PRN #8 tab 08/26/19 Unknown Rx cephALEXin [Keflex] 500 mg PO BID 10 Days #20 cap 08/26/19 Unknown Rx ARIPiprazole [Abilify TAB] 15 mg PO QDAY #30 12/31/19 Unknown Rx Abacavir [Ziagen TAB] 600 mg PO QAM tablet 12/31/19 Unknown Rx Acetaminophen/Codeine [Tylenol 1 tab PO Q6H PRN #20 tab 12/31/19 Unknown Rx /Codeine # 3 tab] AtorvaSTATin [Lipitor] 40 mg PO HS tablet 12/31/19 Unknown Rx Dulaglutide [Trulicity] 0.75 mg SQ QWEEK #1 12/31/19 Unknown Rx Gabapentin 800 mg PO TID capsule 12/31/19 Unknown Rx Insulin Lispro [Humalog] 0 unit SUB-Q ACHS vial 12/31/19 Unknown Rx Mirtazapine [Remeron 15mg TAB] 45 mg PO QHS #30 tablet 12/31/19 Unknown Rx Trazodone HCl 150 mg PO QHS PRN #30 12/31/19 Unknown Rx cephALEXin [Keflex] 500 mg PO Q8H #21 cap 12/31/19 Unknown Rx lisinopriL [Zestril TAB] 40 mg PO QDAY tablet 12/31/19 Unknown Rx Allergies Allergy/AdvReac Type Severity Reaction Status Date / Time iodine Allergy Swelling Verified 08/26/19 12:57 sulfamethoxazole Allergy Rash Verified 08/26/19 12:57 [From Bactrim] trimethoprim [From Bactrim] Allergy Rash Verified 08/26/19 12:57 metformin AdvReac Nausea Verified 08/26/19 12:57 seafood Allergy Rash Uncoded 02/16/18 13:38 ED Review of Systems ROS: Stated complaint: LOWER ABD PAIN Other details as noted in HPI Comment: All other systems reviewed and negative Constitutional: chills, fever Respiratory: denies: cough, orthopnea, shortness of breath, SOB with exertion, SOB at rest, wheezing Cardiovascular: palpitations. denies: chest pain Gastrointestinal: abdominal pain, nausea, vomiting. denies: diarrhea, constipation, hematemesis, hematochezia Genitourinary: urgency, dysuria, frequency. denies: discharge Neurological: denies: headache, weakness, numbness, paresthesias, confusion ED Past Medical Hx - Past Medical History Previous Medical History?: Yes Hx Hypertension: Yes Hx Diabetes: Yes Hx Liver Disease: No Hx Renal Disease: No Hx Seizures: No Hx Psychiatric Treatment: Yes (anxiety depression) Hx Asthma: Yes Hx HIV: Yes (last CD4 count within normal limits April 2019) Additional medical history: HIGH CHOLESTEROL - Surgical History Past Surgical History?: Yes Hx Pacemaker: No Hx Internal Defibrillator: No Hx Cholecystectomy: Yes Additional Surgical History: d&c x1, insulin pump placement, TOTAL HYSTERECTOMY, boil removal to R inner thigh - Social History Smoking Status: Never Smoker Substance Use Type: None - Medications Home Medications: Home Medications Medication Instructions Recorded Confirmed Last Taken Type Abacavir/Dolutegravir/Lamivudi 1 each PO DAILY 07/10/15 12/29/19 09/08/17 History [Triumeq 600-50-300 mg Tablet] buPROPion XL [Wellbutrin XL] 150 mg PO QDAY 06/02/18 04/15/19 Unknown History Cyclobenzaprine HCl [Flexeril 5 MG 5 mg PO QHS #10 tab 12/08/18 04/15/19 Unknown Rx TAB] ALBUTEROL NEB's [Proventil 0.083% 2.5 mg IH TID PRN 04/15/19 04/15/19 Unknown History NEBS] Lispro Insulin [HumaLOG] 0 unit SQ DAILY 04/15/19 04/15/19 12/29/19 History Omeprazole 40 mg PO DAILY 04/15/19 12/29/19 Unknown History Tapentadol HCl [Nucynta ER] 100 mg PO Q12H PRN 04/15/19 04/15/19 Unknown History Tapentadol HCl [Nucynta] 75 mg PO DAILY 04/15/19 04/15/19 Unknown History lisinopriL [Zestril TAB] 40 mg PO QDAY 04/15/19 12/29/19 Unknown History Albuterol Mdi (or & Nicu Only) 2 puff IH QID PRN #8.5 gram 04/25/19 Unknown Rx [ProAir HFA Inhaler] Benzonatate [Tessalon Perles] 100 mg PO Q8HR #30 capsule 04/25/19 Unknown Rx Ibuprofen [Motrin 800 MG tab] 800 mg PO Q8HR PRN #20 tablet 04/25/19 Unknown Rx Fluconazole [Diflucan TAB] 100 mg PO QDAY 1 Days #1 tablet 08/26/19 Unknown Rx Promethazine [Phenergan] 25 mg PO Q8HR PRN #8 tab 08/26/19 Unknown Rx cephALEXin [Keflex] 500 mg PO BID 10 Days #20 cap 08/26/19 Unknown Rx ARIPiprazole [Abilify TAB] 15 mg PO QDAY #30 12/31/19 Unknown Rx Abacavir [Ziagen TAB] 600 mg PO QAM tablet 12/31/19 Unknown Rx Acetaminophen/Codeine [Tylenol 1 tab PO Q6H PRN #20 tab 12/31/19 Unknown Rx /Codeine # 3 tab] AtorvaSTATin [Lipitor] 40 mg PO HS tablet 12/31/19 Unknown Rx Dulaglutide [Trulicity] 0.75 mg SQ QWEEK #1 12/31/19 Unknown Rx Gabapentin 800 mg PO TID capsule 12/31/19 Unknown Rx Insulin Lispro [Humalog] 0 unit SUB-Q ACHS vial 12/31/19 Unknown Rx Mirtazapine [Remeron 15mg TAB] 45 mg PO QHS #30 tablet 12/31/19 Unknown Rx Trazodone HCl 150 mg PO QHS PRN #30 12/31/19 Unknown Rx cephALEXin [Keflex] 500 mg PO Q8H #21 cap 12/31/19 Unknown Rx lisinopriL [Zestril TAB] 40 mg PO QDAY tablet 12/31/19 Unknown Rx ED Physical Exam - General Limitations: No Limitations General appearance: alert, in no apparent distress - Head Head exam: Present: atraumatic, normocephalic, normal inspection - Eye Eye exam: Present: normal appearance, PERRL - ENT ENT exam: Present: mucous membranes dry - Neck Neck exam: Present: normal inspection, full ROM. Absent: tenderness, meningismus - Respiratory Respiratory exam: Present: normal lung sounds bilaterally - Cardiovascular Cardiovascular Exam: Present: tachycardia - GI/Abdominal GI/Abdominal exam: Present: soft, normal bowel sounds. Absent: distended, tenderness, guarding, rebound, rigid, mass, bruit, pulsatile mass, hernia - Extremities Exam Extremities exam: Present: normal inspection, full ROM, normal capillary refill. Absent: tenderness, pedal edema, joint swelling, calf tenderness - Back Exam Back exam: Present: normal inspection, full ROM, CVA tenderness (R), CVA tende rness (L) - Neurological Exam Neurological exam: Present: alert, oriented X3, CN II-XII intact - Skin Skin exam: Present: warm, dry, intact ED Course Vital Signs 06/06/20 06/06/20 06/06/20 19:54 20:41 21:00 Temperature 100.3 F H Pulse Rate 129 H 126 H 115 H Respiratory 20 13 12 Rate Blood Pressure 126/69 191/94 O2 Sat by Pulse 98 100 99 Oximetry 06/06/20 06/06/20 06/06/20 21:30 21:37 22:11 Temperature Pulse Rate 118 H 124 H 122 H Respiratory 13 13 Rate Blood Pressure 170/77 O2 Sat by Pulse 98 96 Oximetry 06/06/20 06/06/20 06/06/20 22:32 23:00 23:30 Temperature Pulse Rate 120 H 117 H 113 H Respiratory 14 15 20 Rate Blood Pressure 191/94 O2 Sat by Pulse 98 97 95 Oximetry 06/07/20 06/07/20 00:00 00:34 Temperature 101 F H Pulse Rate 126 H Respiratory 32 H Rate Blood Pressure O2 Sat by Pulse 98 Oximetry ED Medical Decision Making - Lab Data Result diagrams: 06/06/20 19:59 06/06/20 19:59 - Radiology Data Radiology results: report reviewed - Medical Decision Making Patient is 40 years old female with history of diabetes and hypertension. Patient is noncompliant with her medication. Patient presented to the ER complaining of bilateral flank pain and suprapubic pain. Patient stated that symptoms been going on for 2 to 3 days. Patient also presented with fever, nausea and vomiting. Patient also reported dysuria and frequency of urination. Patient denied any chest pain or shortness of breath. No vaginal discharge patient received normal saline, Zofran, morphine and Rocephin. Labs reviewed and showed elevated white blood cells and hyperglycemia. CT abdomen pelvis is unremarkable for acute finding. Patient also has a right buttock cellulitis. I did not appreciate any fluids and exam to indicate abscess. Patient received vancomycin 1 g IV. I discussed the patient with Dr. Thomson he agreed to admit the patient to medical service for further management. Critical care attestation.: If time is entered above; I have spent that time in minutes in the direct care of this critically ill patient, excluding procedure time. ED Disposition Clinical Impression: Sepsis, UTI (urinary tract infection), Cellulitis of buttock Disposition: [id number] OP ADMIT IP TO THIS HOSP Is pt being admited?: Yes Condition: Stable Referrals: PRIMARY CARE, [Primary Care Provider] - 3-5 Days
[2020-06-06 21:58] LABS: Bacteria,Urine 1+ /HPF (Negative); Bilirubin,Urine NEG (Negative); Blood,Urine SM (Negative); Color,Urine Yellow (Yellow); Mucus,Urine FEW /HPF; Urobilinogen,Urine < 2.0 mg/dL (<2.0)
[2020-06-06 21:59] LABS: Protein,Urine >500 mg/dL (Negative)
[2020-06-06] MEDS ORDERED: INSULIN REGULAR, HUMAN 100 UNITS/1 ML IV ONE (22:10)
[2020-06-06] MEDS ORDERED: HYDROmorphone 1 MG/1 ML INJ IV ONE (22:35)
--- NOTE | 2020-06-06 22:41 | Cat Scan Report ---
CT ABDOMEN AND PELVIS WITHOUT CONTRAST HISTORY: Bilateral flank pain COMPARISON: 12/31/2019 TECHNIQUE: Routine abdominal and pelvic CT exam performed without contrast. Lack of intravenous cont rast limits evaluation of the vascular and solid organs.. All CT scans at this location are performed using CT dose reduction for ALARA by means of automated exposure control. FINDINGS: CT ABDOMEN: Lung Bases: No significant abnormality. Liver: No significant abnormality. Biliary: Gallbladder is surgically absent. Spleen: No significant abnormality. Unenlarged. Pancreas: No significant abnormality. Adrenals: No significant abnormality. Kidneys: There are stable cortical cysts in both kidneys. There is an unchanged residual 1.8 cm stone in the upper left kidney. There are no ureteral stones or hydronephrosis. Lymphatics: No lymphadenopathy. Vasculature: No significant abnormality. Bowel/Peritoneum: No significant abnormality. No free air. No free fluid. Normal appendix. CT PELVIC: : There is air in the urinary bladder which may indicate recent catheterization. Lymphatics: No lymphadenopathy. Osseous Structures: No aggressive appearing osseous lesions. Additional Findings: None IMPRESSION: 1. Unchanged left intrarenal stone. No ureteral stones or hydronephrosis. 2. Air in the urinary bladder is probably due to recent catheterization. Signer Name: Juan Carlos Velasquez MD Signed: 06/06/2020 10:36 PM Workstation Name: [id number]
[2020-06-06] MEDS ORDERED: diphenhydrAMINE 50 MG/ML VIAL IV ONE (23:35)
--- NOTE | 2020-06-06 23:51 | XRay Report ---
CHEST 1 VIEW 06/06/2020 10:41 PM INDICATION / CLINICAL INFORMATION: fever. COMPARISON: 04/24/2019 FINDINGS: SUPPORT DEVICES: None. HEART / MEDIASTINUM: No significant abnormality. LUNGS / PLEURA: No significant pulmonary or pleural abnormality. No pneumothorax. ADDITIONAL FINDINGS: No significant additional findings. IMPRESSION: 1. No acute findings. Signer Name: Juan Carlos Velasquez MD Signed: 06/06/2020 11:47 PM Workstation Name: [id number]
[2020-06-07] MEDS ORDERED: INSULIN REGULAR, HUMAN 100 UNITS/1 ML IV ONE (00:01)
[2020-06-07] MEDS ORDERED: ACETAMINOPHEN 500 MG TAB PO ONE (00:33)
[2020-06-07] MEDS ORDERED: VANCOMYCIN/NS 1 GM/250 ML 1 GM/250 ML BAG IV ONE (00:42)
[2020-06-07] MEDS ORDERED: DEXTROSE 50% IN WATER (25GM) 50 ML SYRINGE IV PRN (00:59)
[2020-06-07] MEDS ORDERED: MAGNESIUM HYDROXIDE (MOM) ORAL LIQD UDC PO PRN (00:59)
--- NOTE | 2020-06-07 01:09 | History and Physical Report ---
History of Present Illness Date of examination: 06/07/20 Date of admission: 06/07/2020 Chief complaint: Bilateral Flank Pain Nausea and Vomiting History of present illness: Patient is a 40-year-old female with known history of hypertension and diabetes mellitus presenting to the emergency room today complaining of bilateral flank pain and suprapubic pain which has been ongoing for the past 2 to 3 days. She has also been having fever, nausea and vomiting and also reported dysuria and increased frequency of urination. She denies any chest pain or shortness of b reath, no headache or dizziness. She denies any hematuria. Patient is known to be noncompliant with her medications. Upon arrival in the emergency room, patient was found to be febrile and tachycardic. Work-up reveals urinalysis. CT scan of the abdomen and pelvis reveals left kidney stone. Patient has been started on empiric IV antibiotics for UTI with accompanying sepsis. Past History Past Medical History: diabetes, hypertension, hyperlipidemia, other (History of HIV-CD4 count within normal limits in April 2020) Past Surgical History: cholecystectomy, hysterectomy, Other (D&C,Boil/Abscess drainage right inner thigh, insulin pump placement.) Social history: no significant social history Family history: no significant family history Medications and Allergies Allergies Allergy/AdvReac Type Severity Reaction Status Date / Time iodine Allergy Swelling Verified 08/26/19 12:57 sulfamethoxazole Allergy Rash Verified 08/26/19 12:57 [From Bactrim] trimethoprim [From Bactrim] Allergy Rash Verified 08/26/19 12:57 metformin AdvReac Nausea Verified 08/26/19 12:57 seafood Allergy Rash Uncoded 02/16/18 13:38 Home Medications Medication Instructions Recorded Confirmed Last Taken Type Abacavir/Dolutegravir/Lamivudi 1 each PO DAILY 07/10/15 12/29/19 09/08/17 History [Triumeq 600-50-300 mg Tablet] buPROPion XL [Wellbutrin XL] 150 mg PO QDAY 06/02/18 04/15/19 Unknown History Cyclobenzaprine HCl [Flexeril 5 MG 5 mg PO QHS #10 tab 12/08/18 04/15/19 Unknown Rx TAB] ALBUTEROL NEB's [Proventil 0.083% 2.5 mg IH TID PRN 04/15/19 04/15/19 Unknown History NEBS] Lispro Insulin [HumaLOG] 0 unit SQ DAILY 04/15/19 04/15/19 12/29/19 History Omeprazole 40 mg PO DAILY 04/15/19 12/29/19 Unknown History Tapentadol HCl [Nucynta ER] 100 mg PO Q12H PRN 04/15/19 04/15/19 Unknown History Tapentadol HCl [Nucynta] 75 mg PO DAILY 04/15/19 04/15/19 Unknown History lisinopriL [Zestril TAB] 40 mg PO QDAY 04/15/19 12/29/19 Unknown History Albuterol Mdi (or & Nicu Only) 2 puff IH QID PRN #8.5 gram 04/25/19 Unknown Rx [ProAir HFA Inhaler] Benzonatate [Tessalon Perles] 100 mg PO Q8HR #30 capsule 04/25/19 Unknown Rx Ibuprofen [Motrin 800 MG tab] 800 mg PO Q8HR PRN #20 tablet 04/25/19 Unknown Rx Fluconazole [Diflucan TAB] 100 mg PO QDAY 1 Days #1 tablet 08/26/19 Unknown Rx Promethazine [Phenergan] 25 mg PO Q8HR PRN #8 tab 08/26/19 Unknown Rx cephALEXin [Keflex] 500 mg PO BID 10 Days #20 cap 08/26/19 Unknown Rx ARIPiprazole [Abilify TAB] 15 mg PO QDAY #30 12/31/19 Unknown Rx Abacavir [Ziagen TAB] 600 mg PO QAM tablet 12/31/19 Unknown Rx Acetaminophen/Codeine [Tylenol 1 tab PO Q6H PRN #20 tab 12/31/19 Unknown Rx /Codeine # 3 tab] AtorvaSTATin [Lipitor] 40 mg PO HS tablet 12/31/19 Unknown Rx Dulaglutide [Trulicity] 0.75 mg SQ QWEEK #1 12/31/19 Unknown Rx Gabapentin 800 mg PO TID capsule 12/31/19 Unknown Rx Insulin Lispro [Humalog] 0 unit SUB-Q ACHS vial 12/31/19 Unknown Rx Mirtazapine [Remeron 15mg TAB] 45 mg PO QHS #30 tablet 12/31/19 Unknown Rx Trazodone HCl 150 mg PO QHS PRN #30 12/31/19 Unknown Rx cephALEXin [Keflex] 500 mg PO Q8H #21 cap 12/31/19 Unknown Rx lisinopriL [Zestril TAB] 40 mg PO QDAY tablet 12/31/19 Unknown Rx Active Meds: Active Medications Acetaminophen (Acetaminophen 325 Mg Tab) 650 mg PO Q4H PRN PRN Reason: Pain MILD(1-3)/Fever >100.5/CHAVARRIA Dextrose (Dextrose 50% In Water (25gm) 50 Ml Syringe) 50 ml IV Q30MIN PRN; Prot ocol PRN Reason: Hypoglycemia Dextrose (Dextrose 50% In Water (25gm) 50 Ml Syringe) 50 ml IV Q30MIN PRN; Protocol PRN Reason: Hypoglycemia Vancomycin HCl (Vancomycin/Ns 1 Gm/250 Ml) 1 gm in 250 mls @ 167.007 mls/hr IV ONCE ONE; Protocol Stop: 06/07/20 02:11 Sodium Chloride (Nacl 0.9% 1000 Ml) 1,000 mls @ 125 mls/hr IV DIRECT GRIS Insulin Human Lispro (Insulin Lispro 100 Unit/Ml) 0 unit SUB-Q ACHS GRIS; Protocol Magnesium Hydroxide (Magnesium Hydroxide (Mom) Oral Liqd Udc) 30 ml PO Q4H PRN PRN Reason: Constipation Morphine Sulfate (Morphine 2 Mg/1 Ml Inj) 2 mg IV Q4H PRN PRN Reason: Pain, Moderate (4-6) Ondansetron HCl (Ondansetron 4 Mg/2 Ml Inj) 4 mg IV Q8H PRN PRN Reason: Nausea And Vomiting Sodium Chloride (Sodium Chloride 0.9% 10 Ml Flush Syringe) 10 ml IV BID GRIS Sodium Chloride (Sodium Chloride 0.9% 10 Ml Flush Syringe) 10 ml IV PRN PRN PRN Reason: LINE FLUSH Review of Systems Constitutional: fever, chills Ears, nose, mouth and throat: no nasal congestion, no sore throat Cardiovascular: no chest pain, no palpitations Respiratory: no cough, no shortness of breath Gastrointestinal: nausea, vomiting, no diarrhea, no hematemesis Genitourinary Female: flank pain, dysuria, urinary frequency, no hematuria Musculoskeletal: no neck pain, no low back pain Integumentary: no rash, no pruritis Neurological: no headaches, no confusion Psychiatric: no anxiety, no depression Exam - Constitutional Vitals: Temp Pulse Resp BP Pulse Ox 101 F H 126 H 32 H 191/94 98 06/07/20 00:34 06/07/20 00:00 06/07/20 00:00 06/06/20 23:00 06/07/20 00:00 General appearance: Present: no acute distress, well-nourished - EENT Eyes: Present: PERRL, EOM intact ENT: hearing intact, clear oral mucosa, dentition normal - Neck Neck: Present: supple, normal ROM - Respiratory Respiratory effort: normal Respiratory: bilateral: CTA - Cardiovascular Rhythm: regular Heart Sounds: Present: S1 & S2. Absent: gallop, systolic murmur, diastolic murmur, rub, click - Extremities Extremities: no ischemia, pulses intact, pulses symmetrical, No edema, normal temperature, normal color, Full ROM Peripheral Pulses: within normal limits - Abdominal General gastrointestinal: Present: soft, non-tender, non-distended, normal bowel sounds, other (Mild tenderness on the left costovertebral angle). Absent: mass - Integumentary Integumentary: Present: clear, warm, dry, normal turgor. Absent: jaundice - Musculoskeletal Musculoskeletal: strength equal bilaterally - Psychiatric Psychiatric: appropriate mood/affect, intact judgment & insight, memory intact, cooperative - Neurologic Neurologic: CNII-XII intact, no focal deficits, moves all extremities - Additional findings Additional findings: Skin: Cellulitis and multiple open wounds on the left gluteal fold. Minimal tenderness, minimal serous drainage. Results - Labs CBC & Chem 7: 06/06/20 19:59 06/06/20 19:59 Labs: Abnormal lab results 06/06/20 06/06/20 06/06/20 Range/Units 19:59 19:59 23:58 WBC 13.5 H (4.5-11.0) K/mm3 MCV 101 H (79-97) fl MCH 34 H (28-32) pg Seg Neutrophils % 75.1 H (40.0-70.0) % Seg Neutrophils # 10.1 H (1.8-7.7) K/mm3 Sodium 131 L (137-145) mmol/L Chloride 97.0 L (98-107) mmol/L BUN 21 H (7-17) mg/dL Creatinine 1.3 H (0.6-1.2) mg/dL Glucose 343 H (65-100) mg/dL POC Glucose 312 H (70-105) mg/dL Albumin 3.7 L (3.9-5) g/dL Urine WBC (Auto) (0.0-6.0) /HPF 06/06/20 Range/Units Unknown WBC (4.5-11.0) K/mm3 MCV (79-97) fl MCH (28-32) pg Seg Neutrophils % (40.0-70.0) % Seg Neutrophils # (1.8-7.7) K/mm3 Sodium (137-145) mmol/L Chloride (98-107) mmol/L BUN (7-17) mg/dL Creatinine (0.6-1.2) mg/dL Glucose (65-100) mg/dL POC Glucose (70-105) mg/dL Albumin (3.9-5) g/dL Urine WBC (Auto) 16.0 H (0.0-6.0) /HPF Assessment and Plan - Patient Problems (1) UTI (urinary tract infection) Current Visit: Yes Status: Acute Plan to address problem: Patient commenced on empiric IV antibiotics. Will await urine culture results. (2) Cellulitis of buttock Current Visit: Yes Status: Acute Plan to address problem: We will continue empiric IV antibiotics. (3) Sepsis Current Visit: Yes Status: Acute Plan to address problem: Possibly secondary to the UTI. We will continue on IV fluid and antibiotics. (4) Diabetes Current Visit: No Status: Acute Plan to address problem: We will monitor Accu-Cheks closely. Patient on sliding scale insulin. (5) Hypertension Current Visit: No Status: Acute Qualifiers: Hypertension type: essential hypertension Qualified Code(s): I10 - Essential (primary) hypertension Plan to address problem: We will resume routine home medications and monitor vital signs closely. (6) Kidney stone on left side Current Visit: No Status: Acute Plan to address problem: Patient has known history of kidney stones. We encourage generous fluid intake. Patient also placed on IV analgesic medication. (7) DVT prophylaxis Current Visit: No Status: Acute Plan to address problem: Patient placed on subcutaneous heparin. (8) Full code status Current Visit: Yes Status: Acute Plan to address problem: Patient is a full code.
[2020-06-07] MEDS: MORPHINE 2 MG/1 ML INJ IV PRN ×5 (01:16→21:59)
[2020-06-07] MEDS ORDERED: NON-FORMULARY EACH (Trazodone Hcl [Trazodone Hcl] 150 MG Tablet) PO PRN (01:43)
[2020-06-07] MEDS ORDERED: VANCOMYCIN PHARMACY TO DOSE IV SCH (02:00)
[2020-06-07] MEDS: ONDANSETRON 4 MG/2 ML INJ IV PRN ×2 (02:30→09:51)
[2020-06-07] MEDS: VANCOMYCIN/NS 1 GM/250 ML 1 GM/250 ML BAG IV ONE ×2 (02:36→03:08)
[2020-06-07] MEDS: ACETAMINOPHEN 325 MG TAB PO PRN (03:26)
[2020-06-07] MEDS: HEPARIN 5,000 UNIT/1 ML VIAL SUB-Q SCH ×5 (06:28→22:08)
[2020-06-07] MEDS: INSULIN LISPRO 100 UNIT/ML SUB-Q SCH ×8 (07:59→21:49)
[2020-06-07] MEDS: diphenhydrAMINE 50 MG/ML VIAL IV PRN ×2 (08:34→14:23)
[2020-06-07 09:15] LABS: Calcium 7.8 mg/dL (8.4-10.2)
--- NOTE | 2020-06-07 09:19 | Progress Note ---
Assessment and Plan Assessment and plan: (1) UTI (urinary tract infection) Current Visit: Yes Status: Acute Plan to address problem: Continue IV antibiotics-ceftriaxone and vancomycin Awaiting urine cultures (2) Cellulitis of buttock Current Visit: Yes Status: Acute Plan to address problem: Continue IV antibiotics (3) Sepsis Current Visit: Yes Status: Acute Plan to address problem: Possibly secondary to the UTI. We will continue on IV fluid and antibiotics. (4) Diabetes Current Visit: No Status: Acute Plan to address problem: Lantus and lispro. Continue to monitor blood glucose closely Check hemoglobin A1c Patient uses an insulin pump which is currently off. (5) Hypertension Current Visit: No Status: Acute Qualifiers: Hypertension type: essential hypertension Qualified Code(s): I10 - Essential (primary) hypertension Plan to address problem: We will resume routine home medications and monitor vital signs closely. (6) Kidney stone on left side Current Visit: No Status: Acute Plan to address problem: Patient has known history of kidney stones. We encourage generous fluid intake. Patient also placed on IV analgesic medication. (7) DVT prophylaxis Current Visit: No Status: Acute Plan to address problem: Patient placed on subcutaneous heparin. (8) Full code status Current Visit: Yes Status: Acute Plan to address problem: Patient is a full code. History Interval history: 40-year-old female with a medical history of HIV [compliant with medication], diabetes [on insulin pump] comes to the hospital with chief complaint of fever and abdominal pain. Here patient found to have sepsis and admitted to the hospital. Hospitalist Physical - Physical exam Narrative exam: VITAL SIGNS: Reviewed. GENERAL: Awake HEAD: No signs of head trauma. EYES: Pupils are equal. Extraocular motions intact. MOUTH: Oropharynx is normal. NECK: No adenopathy, no JVD. CHEST: Chest with diminished breath sounds bilaterally. No wheezes, rales, or rhonchi. CARDIAC: normal S1 and S2, without murmurs, gallops, or rubs. ABDOMEN: Soft, non tender and non distended. No rebound or guarding, and no masses palpated. Bowel Sounds normal. MUSCULOSKELETAL: No edema NEUROLOGIC EXAM: Alert and oriented x3. No focal neurologic deficits SKIN: No obvious lesions - Constitutional Vitals: Temp Pulse Resp BP Pulse Ox 100.1 F H 102 H 20 139/70 94 06/07/20 06:40 06/07/20 06:40 06/07/20 06:57 06/07/20 06:40 06/07/20 06:40 Results - Labs CBC & Chem 7: 06/06/20 19:59 06/07/20 08:11 Labs: Laboratory Last Values WBC 13.5 K/mm3 (4.5-11.0) H 06/06/20 19:59 RBC 3.68 M/mm3 (3.65-5.03) 06/06/20 19:59 Hgb 12.4 gm/dl (10.1-14.3) 06/06/20 19:59 Hct 37.0 % (30.3-42.9) 06/06/20 19:59 MCV 101 fl (79-97) H 06/06/20 19:59 MCH 34 pg (28-32) H 06/06/20 19:59 MCHC 34 % (30-34) 06/06/20 19:59 RDW 13.9 % (13.2-15.2) 06/06/20 19:59 Plt Count 148 K/mm3 (140-440) 06/06/20 19:59 Lymph % (Auto) 18.2 % (13.4-35.0) 06/06/20 19:59 [place] % (Auto) 5.9 % (0.0-7.3) 06/06/20 19:59 Eos % (Auto) 0.6 % (0.0-4.3) 06/06/20 19:59 Baso % (Auto) 0.2 % (0.0-1.8) 06/06/20 19:59 Lymph # (Auto) 2.5 K/mm3 (1.2-5.4) 06/06/20 19:59 [place] # (Auto) 0.8 K/mm3 (0.0-0.8) 06/06/20 19:59 Eos # (Auto) 0.1 K/mm3 (0.0-0.4) 06/06/20 19:59 Baso # (Auto) 0.0 K/mm3 (0.0-0.1) 06/06/20 19:59 Seg Neutrophils % 75.1 % (40.0-70.0) H 06/06/20 19:59 Seg Neutrophils # 10.1 K/mm3 (1.8-7.7) H 06/06/20 19:59 Sodium 130 mmol/L (137-145) L 06/07/20 08:11 Potassium 4.2 mmol/L (3.6-5.0) 06/07/20 08:11 Chloride 99.5 mmol/L (98-107) 06/07/20 08:11 Carbon Dioxide 23 mmol/L (22-30) 06/07/20 08:11 Anion Gap 12 mmol/L 06/07/20 08:11 BUN 24 mg/dL (7-17) H 06/07/20 08:11 Creatinine 1.4 mg/dL (0.6-1.2) H 06/07/20 08:11 Estimated GFR 42 ml/min 06/07/20 08:11 BUN/Creatinine Ratio 17 % 06/07/20 08:11 Glucose 343 mg/dL (65-100) H 06/06/20 19:59 POC Glucose 486 mg/dL (70-105) H 06/07/20 07:51 Lactic Acid 1.70 mmol/L (0.7-2.0) 06/06/20 22:34 Calcium 7.8 mg/dL (8.4-10.2) L 06/07/20 08:11 Total Bilirubin 0.50 mg/dL (0.1-1.2) 06/06/20 19:59 AST 15 units/L (5-40) 06/06/20 19:59 ALT 29 units/L (7-56) 06/06/20 19:59 Alkaline Phosphatase 115 units/L (35-129) 06/06/20 19:59 Total Protein 6.6 g/dL (6.3-8.2) 06/06/20 19:59 Albumin 3.7 g/dL (3.9-5) L 06/06/20 19:59 Albumin/Globulin Ratio 1.3 % 06/06/20 19:59 HCG, Qual Negative (Negative) 06/06/20 23:19 Urine Color Yellow (Yellow) 06/06/20 Unknown Urine Turbidity Slightly-cloudy (Clear) 06/06/20 Unknown Urine pH 5.0 (5.0-7.0) 06/06/20 Unknown Ur Specific [place] 1.023 (1.003-1.030) 06/06/20 Unknown Urine Protein >500 mg/dL (Negative) 06/06/20 Unknown Urine Glucose (UA) >=500 mg/dL (Negative) 06/06/20 Unknown Urine Ketones Neg mg/dL (Negative) 06/06/20 Unknown Urine Blood Sm (Negative) 06/06/20 Unknown Urine Nitrite Neg (Negative) 06/06/20 Unknown Urine Bilirubin Neg (Negative) 06/06/20 Unknown Urine Urobilinogen < 2.0 mg/dL (<2.0) 06/06/20 Unknown Ur Leukocyte Esterase Neg (Negative) 06/06/20 Unknown Urine WBC (Auto) 16.0 /HPF (0.0-6.0) H 06/06/20 Unknown Urine RBC (Auto) 8.0 /HPF (0.0-6.0) 06/06/20 Unknown U Epithel Cells (Auto) 5.0 /HPF (0-13.0) 06/06/20 Unknown Urine Bacteria (Auto) 1+ /HPF (Negative) 06/06/20 Unknown Urine Mucus Few /HPF 06/06/20 Unknown Microbiology: Microbiology 06/06/20 19:59 Peripheral/Venous Blood Culture - Preliminary Culture in Progress 06/06/20 19:59 Peripheral/Venous Blood Culture - Preliminary Culture in Progress [place]/IV: Voiding Method Toilet Active Medications - Current Medications Current Medications: Generic Name Dose Route Start Last Admin Trade Name Freq PRN Reason Stop Dose Admin Abacavir Sulfate 600 mg 06/07/20 10:00 Abacavir 300 Mg Tab PO DAILY GRIS Acetaminophen 650 mg 06/07/20 00:59 06/07/20 03:26 Acetaminophen 325 Mg Tab PO 650 mg Q4H PRN Administration Pain MILD(1-3)/Fever >100.5/[place] Aripiprazole 15 mg 06/07/20 10:00 Aripiprazole 15 Mg Tab PO QDAY GRIS Bupropion HCl 150 mg 06/07/20 10:00 Bupropion Xl 150 Mg Tab PO QDAY GRIS Dextrose 50 ml 06/07/20 00:59 Dextrose 50% In Water (25gm) 50 Ml Syringe IV Q30MIN PRN Hypoglycemia Protocol Diphenhydramine HCl 25 mg 06/07/20 08:16 06/07/20 08:34 Diphenhydramine 50 Mg/Ml Vial IV 25 mg Q6H PRN Administration Itching Heparin Sodium (Porcine) 5,000 unit 06/07/20 06:00 06/07/20 06:28 Heparin 5,000 Unit/1 Ml Vial SUB-Q 5,000 unit Q8HR GRIS Administration Sodium Chloride 1,000 mls @ 125 mls/hr 06/07/20 01:00 Nacl 0.9% 1000 Ml IV DIRECT GRIS Ceftriaxone Sodium 1 gm in 50 mls @ 100 mls/hr 06/07/20 10:00 Rocephin/Ns 1 Gm/50 Ml IV Q24H [facility] Protocol Insulin Human Lispro 0 unit 06/07/20 07:30 06/07/20 07:59 Insulin Lispro 100 Unit/Ml SUB-Q 8 unit ACHS GRIS Administration Protocol Lamivudine 300 mg 06/07/20 10:00 Lamivudine 150 Mg Tab PO DAILY [facility] Magnesium Hydroxide 30 ml 06/07/20 00:59 Magnesium Hydroxide (Mom) Oral Liqd Udc PO Q4H PRN Constipation Morphine Sulfate 2 mg 06/07/20 00:59 06/07/20 06:27 Morphine 2 Mg/1 Ml Inj IV 2 mg Q4H PRN Administration Pain, Moderate (4-6) Ondansetron HCl 4 mg 06/07/20 00:59 06/07/20 02:30 Ondansetron 4 Mg/2 Ml Inj IV 4 mg Q8H PRN Administration Nausea And Vomiting Pantoprazole Sodium 40 mg 06/07/20 10:00 Pantoprazole 40 Mg Tab PO DAILY GRIS Sodium Chloride 10 ml 06/07/20 10:00 Sodium Chloride 0.9% 10 Ml Flush Syringe IV BID GRIS Sodium Chloride 10 ml 06/07/20 00:59 Sodium Chloride 0.9% 10 Ml Flush Syringe IV PRN PRN LINE FLUSH Trazodone HCl 150 mg 06/07/20 01:52 Trazodone 50 Mg Tab PO QHS PRN Insomnia
[2020-06-07] MEDS: buPROPion XL 150 MG TAB PO SCH (09:42)
[2020-06-07] MEDS: DOLUTEGRAVIR 50 MG TAB PO SCH (09:42)
[2020-06-07] MEDS: ABACAVIR 300 MG TAB PO SCH (09:42)
[2020-06-07] MEDS: PANTOPRAZOLE 40 MG TAB PO SCH (09:42)
[2020-06-07] MEDS: ARIPiprazole 15 MG TAB PO SCH (09:42)
[2020-06-07] MEDS: cefTRIAXone/NS 1 GM/50 ML 1 GM/50 ML BAG IV SCH (09:43)
[2020-06-07] MEDS ORDERED: ABACAVIR 300 MG TAB PO SCH (10:00)
[2020-06-07] MEDS ORDERED: INSULIN GLARGINE 100 UNITS/ML SUB-Q ONE (10:00)
[2020-06-07] MEDS ORDERED: NON-FORMULARY EACH (Omeprazole [Omeprazole] 40 MG Capsule.Dr) PO SCH (10:00)
[2020-06-07] MEDS ORDERED: DOLUTEGRAVIR PO SCH (10:00)
[2020-06-07] MEDS ORDERED: [UNRECOGNIZED DRUG - OTHER] PO SCH (10:00)
[2020-06-07] MEDS ORDERED: LAMIVUDI PO SCH (10:00)
[2020-06-07] MEDS ORDERED: ABACAVIR PO SCH (10:00)
[2020-06-07] MEDS ORDERED: VANCOMYCIN 1,500 MG in SODIUM CHLORIDE 0.9% 500 ML 500 ML IV SCH (14:00)
[2020-06-07] MEDS: traZODone 50 MG TAB PO PRN (21:47)
[2020-06-08] MEDS: MORPHINE 2 MG/1 ML INJ IV PRN ×5 (02:39→20:50)
[2020-06-08] MEDS: ONDANSETRON 4 MG/2 ML INJ IV PRN ×2 (02:46→12:14)
[2020-06-08] MEDS: VANCOMYCIN 1,500 MG in SODIUM CHLORIDE 0.9% 500 ML 500 ML IV SCH (05:20)
[2020-06-08] MEDS: ACETAMINOPHEN 325 MG TAB PO PRN ×2 (05:20→23:41)
[2020-06-08] MEDS: HEPARIN 5,000 UNIT/1 ML VIAL SUB-Q SCH ×3 (05:21→21:05)
[2020-06-08] MEDS: diphenhydrAMINE 50 MG/ML VIAL IV PRN ×2 (06:03→21:02)
[2020-06-08] MEDS ORDERED: METOCLOPRAMIDE 10 MG/2 ML INJ IV ONE (06:18)
[2020-06-08 07:08] LABS: Basophils % (Auto) 0.2 % (0.0-1.8); Eosinophils # (Auto) 0.1 K/mm3 (0.0-0.4); Eosinophils % (Auto) 0.8 % (0.0-4.3); Hematocrit 29.4 % (30.3-42.9); Hemoglobin 10.3 gm/dl (10.1-14.3); Lymphocytes # (Auto) 1.5 K/mm3 (1.2-5.4); Lymphocytes % (Auto) 15.3 % (13.4-35.0); Mean Corpuscular HGB Conc 35 % (30-34); Mean Corpuscular Volume 98 fl (79-97); Monocytes # (Auto) 0.7 K/mm3 (0.0-0.8); Monocytes % (Auto) 7.1 % (0.0-7.3); Platelet Count 116 K/mm3 (140-440); Red Blood Count 3.01 M/mm3 (3.65-5.03); Red Cell Distribution Width 13.3 % (13.2-15.2)
[2020-06-08 07:17] LABS: INR 0.99 (0.87-1.13)
[2020-06-08 07:24] LABS: Calcium 8.7 mg/dL (8.4-10.2)
[2020-06-08] MEDS: INSULIN LISPRO 100 UNIT/ML SUB-Q SCH ×8 (08:00→21:04)
[2020-06-08] MEDS: INSULIN GLARGINE 100 UNITS/ML SUB-Q SCH ×2 (08:49→10:25)
[2020-06-08] MEDS: ABACAVIR 300 MG TAB PO SCH (10:19)
[2020-06-08] MEDS: PANTOPRAZOLE 40 MG TAB PO SCH (10:20)
[2020-06-08] MEDS: buPROPion XL 150 MG TAB PO SCH (10:20)
[2020-06-08] MEDS: ARIPiprazole 15 MG TAB PO SCH (10:20)
[2020-06-08] MEDS: SODIUM CHLORIDE 0.9% 1000 ML 1,000 ML IV SCH ×2 (10:20→20:50)
[2020-06-08] MEDS: DOLUTEGRAVIR 50 MG TAB PO SCH (10:20)
--- NOTE | 2020-06-08 10:22 | Progress Note ---
Assessment and Plan Assessment and plan: UTI. Cellulitis of buttocks. Sepsis. Diabetes mellitus type 2. Hypertension Left renal calculus. 06/08/2020. Continue antibiotics of Rocephin and vancomycin. ID consultation pending. Continue to monitor temperature curve. Follow-up blood and urine cultures. Continue Lantus, SSRI and Accu-Cheks. History Interval history: No new issues overnight. Patient still reports fevers. Hospitalist Physical - Constitutional Vitals: Temp Pulse Resp BP Pulse Ox 100.2 F H 100 H 18 149/81 98 06/08/20 04:25 06/08/20 04:25 06/08/20 06:20 06/08/20 04:25 06/08/20 04:25 General appearance: Present: no acute distress, well-nourished - EENT Eyes: Present: PERRL, EOM intact ENT: hearing intact, clear oral mucosa, dentition normal - Neck Neck: Present: supple, normal ROM - Respiratory Respiratory effort: normal Respiratory: bilateral: CTA - Cardiovascular Rhythm: regular Heart Sounds: Present: S1 & S2. Absent: gallop, rub - Extremities Extremities: no ischemia, No edema, Full ROM - Abdominal General gastrointestinal: soft, non-tender, non-distended, normal bowel sounds - Integumentary Integumentary: Present: clear, warm, dry - Neurologic Neurologic: CNII-XII intact, moves all extremities Results - Labs CBC & Chem 7: 06/08/20 04:00 06/08/20 04:00 Labs: Laboratory Last Values WBC 9.6 K/mm3 (4.5-11.0) 06/08/20 04:00 RBC 3.01 M/mm3 (3.65-5.03) L 06/08/20 04:00 Hgb 10.3 gm/dl (10.1-14.3) 06/08/20 04:00 Hct 29.4 % (30.3-42.9) L D 06/08/20 04:00 MCV 98 fl (79-97) H 06/08/20 04:00 MCH 34 pg (28-32) H 06/08/20 04:00 MCHC 35 % (30-34) H 06/08/20 04:00 RDW 13.3 % (13.2-15.2) 06/08/20 04:00 Plt Count 116 K/mm3 (140-440) L 06/08/20 04:00 Lymph % (Auto) 15.3 % (13.4-35.0) 06/08/20 04:00 [place] % (Auto) 7.1 % (0.0-7.3) 06/08/20 04:00 Eos % (Auto) 0.8 % (0.0-4.3) 06/08/20 04:00 Baso % (Auto) 0.2 % (0.0-1.8) 06/08/20 04:00 Lymph # (Auto) 1.5 K/mm3 (1.2-5.4) 06/08/20 04:00 [place] # (Auto) 0.7 K/mm3 (0.0-0.8) 06/08/20 04:00 Eos # (Auto) 0.1 K/mm3 (0.0-0.4) 06/08/20 04:00 Baso # (Auto) 0.0 K/mm3 (0.0-0.1) 06/08/20 04:00 Seg Neutrophils % 76.6 % (40.0-70.0) H 06/08/20 04:00 Seg Neutrophils # 7.4 K/mm3 (1.8-7.7) 06/08/20 04:00 PT 12.9 Sec. (12.2-14.9) 06/08/20 04:00 INR 0.99 (0.87-1.13) 06/08/20 04:00 Sodium 134 mmol/L (137-145) L 06/08/20 04:00 Potassium 4.3 mmol/L (3.6-5.0) 06/08/20 04:00 Chloride 102.0 mmol/L (98-107) 06/08/20 04:00 Carbon Dioxide 24 mmol/L (22-30) 06/08/20 04:00 Anion Gap 12 mmol/L 06/08/20 04:00 BUN 22 mg/dL (7-17) H 06/08/20 04:00 Creatinine 1.2 mg/dL (0.6-1.2) 06/08/20 04:00 Estimated GFR 50 ml/min 06/08/20 04:00 BUN/Creatinine Ratio 18 % 06/08/20 04:00 Glucose 263 mg/dL (65-100) H 06/08/20 04:00 POC Glucose 216 mg/dL (70-105) H 06/07/20 21:09 Lactic Acid 1.70 mmol/L (0.7-2.0) 06/06/20 22:34 Calcium 8.7 mg/dL (8.4-10.2) 06/08/20 04:00 Total Bilirubin 0.50 mg/dL (0.1-1.2) 06/06/20 19:59 AST 15 units/L (5-40) 06/06/20 19:59 ALT 29 units/L (7-56) 06/06/20 19:59 Alkaline Phosphatase 115 units/L (35-129) 06/06/20 19:59 Total Protein 6.6 g/dL (6.3-8.2) 06/06/20 19:59 Albumin 3.7 g/dL (3.9-5) L 06/06/20 19:59 Albumin/Globulin Ratio 1.3 % 06/06/20 19:59 HCG, Qual Negative (Negative) 06/06/20 23:19 Urine Color Yellow (Yellow) 06/06/20 Unknown Urine Turbidity Slightly-cloudy (Clear) 06/06/20 Unknown Urine pH 5.0 (5.0-7.0) 06/06/20 Unknown Ur Specific [place] 1.023 (1.003-1.030) 06/06/20 Unknown Urine Protein >500 mg/dL (Negative) 06/06/20 Unknown Urine Glucose (UA) >=500 mg/dL (Negative) 06/06/20 Unknown Urine Ketones Neg mg/dL (Negative) 06/06/20 Unknown Urine Blood Sm (Negative) 06/06/20 Unknown Urine Nitrite Neg (Negative) 06/06/20 Unknown Urine Bilirubin Neg (Negative) 06/06/20 Unknown Urine Urobilinogen < 2.0 mg/dL (<2.0) 06/06/20 Unknown Ur Leukocyte Esterase Neg (Negative) 06/06/20 Unknown Urine WBC (Auto) 16.0 /HPF (0.0-6.0) H 06/06/20 Unknown Urine RBC (Auto) 8.0 /HPF (0.0-6.0) 06/06/20 Unknown U Epithel Cells (Auto) 5.0 /HPF (0-13.0) 06/06/20 Unknown Urine Bacteria (Auto) 1+ /HPF (Negative) 06/06/20 Unknown Urine Mucus Few /HPF 06/06/20 Unknown Microbiology: Microbiology 06/06/20 19:59 Peripheral/Venous Blood Culture - Preliminary NO GROWTH AFTER 24 HOURS 06/06/20 19:59 Peripheral/Venous Blood Culture - Preliminary NO GROWTH AFTER 24 HOURS [place]/IV: Voiding Method Toilet Active Medications - Current Medications Current Medications: Generic Name Dose Route Start Last Admin Trade Name Freq PRN Reason Stop Dose Admin Abacavir Sulfate 600 mg 06/07/20 10:00 06/08/20 10:19 Abacavir 300 Mg Tab PO 600 mg DAILY GRIS Administration Acetaminophen 650 mg 06/07/20 00:59 06/08/20 05:20 Acetaminophen 325 Mg Tab PO 650 mg Q4H PRN Administration Pain MILD(1-3)/Fever >100.5/[place] Aripiprazole 15 mg 06/07/20 10:00 06/08/20 10:20 Aripiprazole 15 Mg Tab PO 15 mg QDAY GRIS Administration Bupropion HCl 150 mg 06/07/20 10:00 06/08/20 10:20 Bupropion Xl 150 Mg Tab PO 150 mg QDAY GRIS Administration Dextrose 50 ml 06/07/20 00:59 Dextrose 50% In Water (25gm) 50 Ml Syringe IV Q30MIN PRN Hypoglycemia Protocol Diphenhydramine HCl 25 mg 06/07/20 08:16 06/08/20 06:03 Diphenhydramine 50 Mg/Ml Vial IV 25 mg Q6H PRN Administration Itching Heparin Sodium (Porcine) 5,000 unit 06/07/20 06:00 06/08/20 05:21 Heparin 5,000 Unit/1 Ml Vial SUB-Q Not Given Q8HR GRIS Sodium Chloride 1,000 mls @ 125 mls/hr 06/07/20 01:00 06/08/20 10:20 Nacl 0.9% 1000 Ml IV 125 mls/hr DIRECT GRIS Administration Ceftriaxone Sodium 1 gm in 50 mls @ 100 mls/hr 06/07/20 10:00 06/07/20 10:15 Rocephin/Ns 1 Gm/50 Ml IV Infused Q24H [facility] Infusion Protocol Vancomycin HCl 1,500 mg/ 530 mls @ 333.333 mls/hr 06/08/20 06:00 06/08/20 05:20 Sodium Chloride IV 333.333 mls/hr Q24H GRIS Administration Insulin Glargine 30 units 06/08/20 08:00 06/08/20 08:49 Insulin Glargine 100 Units/Ml SUB-Q 30 units QAM GRIS Administration Insulin Human Lispro 0 unit 06/07/20 07:30 06/08/20 08:00 Insulin Lispro 100 Unit/Ml SUB-Q 4 unit ACHS GRIS Administration Protocol Insulin Human Lispro 8 unit 06/07/20 11:30 06/08/20 08:00 Insulin Lispro 100 Unit/Ml SUB-Q 8 unit ACHS GRIS Administration Lamivudine 300 mg 06/07/20 10:00 06/08/20 10:20 Lamivudine 150 Mg Tab PO 300 mg DAILY GRIS Administration Magnesium Hydroxide 30 ml 06/07/20 00:59 Magnesium Hydroxide (Mom) Oral Liqd Udc PO Q4H PRN Constipation Morphine Sulfate 2 mg 06/07/20 00:59 06/08/20 08:08 Morphine 2 Mg/1 Ml Inj IV 2 mg Q4H PRN Administration Pain, Moderate (4-6) Ondansetron HCl 4 mg 06/07/20 00:59 06/08/20 02:46 Ondansetron 4 Mg/2 Ml Inj IV 4 mg Q8H PRN Administration Nausea And Vomiting Pantoprazole Sodium 40 mg 06/07/20 10:00 06/08/20 10:20 Pantoprazole 40 Mg Tab PO 40 mg DAILY GRIS Administration Sodium Chloride 10 ml 06/07/20 10:00 06/08/20 10:20 Sodium Chloride 0.9% 10 Ml Flush Syringe IV 10 ml BID GRIS Administration Sodium Chloride 10 ml 06/07/20 00:59 Sodium Chloride 0.9% 10 Ml Flush Syringe IV PRN PRN LINE FLUSH Trazodone HCl 150 mg 06/07/20 01:52 06/07/20 21:47 Trazodone 50 Mg Tab PO 150 mg QHS PRN Administration Insomnia Nutrition/Malnutrition Assess - Dietary Evaluation Nutrition/Malnutrition Findings: Nutrition Notes Start: 06/07/20 14:33 Freq: Status: Active Protocol: Document 06/07/20 14:33 AL (Rec: 06/07/20 14:42 AL [id number]) Co-Sign 06/07/20 14:33 LP Nutrition Notes Need for Assessment generated from: MD Order,Education Initial or Follow up Assessment Current Diagnosis Diabetes,Sepsis,Hypertension, Hyperlipidemia Other Pertinent Diagnosis UTI, HIV Current Diet Cardiac/Consistent CHO Labs/Tests Na 131 BUN 21 Cr 1.3 BG 343 Pertinent Medications Humalog Height 5 ft 3 in Weight 107.3 kg [place] Body Weight (kg) 52.27 BMI 41.9 Weight change and time frame wt change noted Weight Status Morbidly Obese Subjective/Other Information MD consult for diet education. Diet education conducted on Heart Healthy diet, N/V, and CHO counting. Pt tired and lethargic, but still alert. Diet education well accepted. Pt tolerates current diet at 100%. Burn Absent Trauma Absent GI Symptoms Nausea,Vomiting Current % PO Fair (50-74%) Minimum of two criteria No #1 Nutrition Diagnosis Food and nutrition-related knowledge deficit Etiology DM, HLD, HTN, N/V As Evidenced by Signs and Symptoms Pt had not received diet education before. Is patient on ventilator? No Is Patient Ambulatory and/or Out of Bed Yes REE-([facility]-ambulatory/OOB) [ 2232.269 [id number]] Kcal/Kg value to use for calculation 16 Approximate Energy Requirements Using 1717 kcal/Kg Calculation Used for Recommendations Kcal/kg Additional Notes Protein: 63-80 g (.8-1.0 g/kg AdBW 80 kg) Fluid: 1 ml/kcal Nutrition Intervention Change Diet Order: Continue Current diet Teaching Recipient Patient Learning Readiness Good Teaching Methods Discussion,Handout Response to Teaching Verbalize understanding Education Handouts Provided Heart Healthy Consistent Carbohydrate Nutrition Therapy Barriers to Learning No Barriers RD phone number provided Yes Patient aware of follow up options Yes Goal #1 Meet 75% of estimated energy and protein needs PO Revisit per MD consult or patient Sign Off request:
[2020-06-08] MEDS: cefTRIAXone/NS 1 GM/50 ML 1 GM/50 ML BAG IV SCH (10:25)
--- NOTE | 2020-06-08 11:22 | Consultation ---
History of Present Illness - Reason for Consult Consult date: 06/08/20 Sepsis Requesting physician: TACO LUNSFORD - History of Present Illness The patient is a 40-year-old female with diabetes, hypertension, noncompliance, HIV was admitted to the emergency room after she came in due to bilateral flank pain and suprapubic pain going on for 2 to 3 days prior to admission. UA showed some pyuria, labs revealed findings concerning for sepsis. She was also having fever with a T-max of 101 F. Started on empiric antibiotics. Infectious diseases was consulted for additional evaluation. Patient for HIV, follows up with Dr. Ponce. Is on Triumeq, reports excellent compliance, reports undetectable viral load. Last CD4 count in our system is [address] abdomen pelvis without contrast revealed left-sided nephrolithiasis, no ureteral stones or hydronephrosis. Chest x-ray showed no evidence of pneumonia. Currently, still complaining of pain in abdomen, burning urination and left gluteal pain. Review of Systems: General: Fever HEENT: no new visual disturbance Respiratory: No cough, sputum, hemoptysis or shortness of breath Cardiovascular: No chest pain, syncope Gastrointestinal: No nausea, vomiting or diarrhea Genitourinary: Dysuria, bilateral flank pain Musculoskeletal: No new or worsening neck pain or back pain Neurologic: No headaches, seizures Hematologic: No easy bruising or bleeding Endocrine: No night sweats or acute weight loss Skin: negative for rash, jaundice Psychiatric: No suicidal or homicidal ideation Past History Past Medical History: diabetes, hypertension, hyperlipidemia, other (History of HIV-CD4 count within normal limits in April 2020) Past Surgical History: cholecystectomy, hysterectomy, Other (D&C,Boil/Abscess drainage right inner thigh, insulin pump placement.) Social history: no significant social history Family history: no significant family history Medications and Allergies Allergies Allergy/AdvReac Type Severity Reaction Status Date / Time iodine Allergy Swelling Verified 08/26/19 12:57 sulfamethoxazole Allergy Rash Verified 08/26/19 12:57 [From Bactrim] trimethoprim [From Bactrim] Allergy Rash Verified 08/26/19 12:57 metformin AdvReac Nausea Verified 08/26/19 12:57 seafood Allergy Rash Uncoded 02/16/18 13:38 Home Medications Medication Instructions Recorded Confirmed Last Taken Type Abacavir/Dolutegravir/Lamivudi 1 each PO DAILY 07/10/15 06/07/20 09/08/17 History [Triumeq 600-50-300 mg Tablet] buPROPion XL [Wellbutrin XL] 150 mg PO QDAY 06/02/18 06/07/20 Unknown History Cyclobenzaprine HCl [Flexeril 5 MG 5 mg PO QHS #10 tab 12/08/18 06/07/20 Unknown Rx TAB] ALBUTEROL NEB's [Proventil 0.083% 2.5 mg IH TID PRN 04/15/19 06/07/20 Unknown History NEBS] Lispro Insulin [HumaLOG] 0 unit SQ DAILY 04/15/19 06/07/20 12/29/19 History Omeprazole 40 mg PO DAILY 04/15/19 06/07/20 Unknown History Albuterol Mdi (or & Nicu Only) 2 puff IH QID PRN #8.5 gram 04/25/19 06/07/20 Unknown Rx [ProAir HFA Inhaler] Benzonatate [Tessalon Perles] 100 mg PO Q8HR #30 capsule 04/25/19 06/07/20 Unknown Rx Ibuprofen [Motrin 800 MG tab] 800 mg PO Q8HR PRN #20 tablet 04/25/19 06/07/20 Unknown Rx Fluconazole [Diflucan TAB] 100 mg PO QDAY 1 Days #1 tablet 08/26/19 06/07/20 Unknown Rx Promethazine [Phenergan] 25 mg PO Q8HR PRN #8 tab 08/26/19 06/07/20 Unknown Rx ARIPiprazole [Abilify TAB] 15 mg PO QDAY #30 12/31/19 06/07/20 Unknown Rx Acetaminophen/Codeine [Tylenol 1 tab PO Q6H PRN #20 tab 12/31/19 06/07/20 Unknown Rx /Codeine # 3 tab] AtorvaSTATin [Lipitor] 40 mg PO HS tablet 12/31/19 06/07/20 Unknown Rx Dulaglutide [Trulicity] 0.75 mg SQ QWEEK #1 12/31/19 06/07/20 Unknown Rx Gabapentin 800 mg PO TID capsule 12/31/19 06/07/20 Unknown Rx Insulin Lispro [Humalog] 0 unit SUB-Q ACHS vial 12/31/19 06/07/20 Unknown Rx Mirtazapine [Remeron 15mg TAB] 45 mg PO QHS #30 tablet 12/31/19 06/07/20 Unknown Rx Trazodone HCl 150 mg PO QHS PRN #30 12/31/19 06/07/20 Unknown Rx lisinopriL [Zestril TAB] 40 mg PO QDAY tablet 12/31/19 06/07/20 Unknown Rx Active Meds: Active Medications Abacavir Sulfate (Abacavir 300 Mg Tab) 600 mg PO DAILY [facility] Last Admin: 06/08/20 10:19 Dose: 600 mg Documented by: Acetaminophen (Acetaminophen 325 Mg Tab) 650 mg PO Q4H PRN PRN Reason: Pain MILD(1-3)/Fever >100.5/[facility] Last Admin: 06/08/20 05:20 Dose: 650 mg Documented by: Aripiprazole (Aripiprazole 15 Mg Tab) 15 mg PO QDAY [facility] Last Admin: 06/08/20 10:20 Dose: 15 mg Documented by: Bupropion HCl (Bupropion Xl 150 Mg Tab) 150 mg PO QDAY [facility] Last Admin: 06/08/20 10:20 Dose: 150 mg Documented by: Dextrose (Dextrose 50% In Water (25gm) 50 Ml Syringe) 50 ml IV Q30MIN PRN; Protocol PRN Reason: Hypoglycemia Diphenhydramine HCl (Diphenhydramine 50 Mg/Ml Vial) 25 mg IV Q6H PRN PRN Reason: Itching Last Admin: 06/08/20 06:03 Dose: 25 mg Documented by: Heparin Sodium (Porcine) (Heparin 5,000 Unit/1 Ml Vial) 5,000 unit SUB-Q Q8HR [facility] Last Admin: 06/08/20 05:21 Dose: Not Given Documented by: Sodium Chloride (Nacl 0.9% 1000 Ml) 1,000 mls @ 125 mls/hr IV DIRECT [facility] Last Admin: 06/08/20 10:20 Dose: 125 mls/hr Documented by: Ceftriaxone Sodium (Rocephin/Ns 1 Gm/50 Ml) 1 gm in 50 mls @ 100 mls/hr IV Q24H [facility]; Protocol Last Admin: 06/08/20 10:25 Dose: 100 mls/hr Documented by: Vancomycin HCl 1,500 mg/ (Sodium Chloride) 530 mls @ 333.333 mls/hr IV Q24H [facility] Last Admin: 06/08/20 05:20 Dose: 333.333 mls/hr Documented by: Insulin Glargine (Insulin Glargine 100 Units/Ml) 30 units SUB-Q QAM [facility] Last Admin: 06/08/20 10:25 Dose: 30 units Documented by: Insulin Human Lispro (Insulin Lispro 100 Unit/Ml) 0 unit SUB-Q [facility]; Pr otocol Last Admin: 06/08/20 08:00 Dose: 4 unit Documented by: Insulin Human Lispro (Insulin Lispro 100 Unit/Ml) 8 unit SUB-Q ACHS [facility] Last Admin: 06/08/20 08:00 Dose: 8 unit Documented by: Lamivudine (Lamivudine 150 Mg Tab) 300 mg PO DAILY [facility] Last Admin: 06/08/20 10:20 Dose: 300 mg Documented by: Magnesium Hydroxide (Magnesium Hydroxide (Mom) Oral Liqd Udc) 30 ml PO Q4H PRN PRN Reason: Constipation Morphine Sulfate (Morphine 2 Mg/1 Ml Inj) 2 mg IV Q4H PRN PRN Reason: Pain, Moderate (4-6) Last Admin: 06/08/20 08:08 Dose: 2 mg Documented by: Ondansetron HCl (Ondansetron 4 Mg/2 Ml Inj) 4 mg IV Q8H PRN PRN Reason: Nausea And Vomiting Last Admin: 06/08/20 02:46 Dose: 4 mg Documented by: Pantoprazole Sodium (Pantoprazole 40 Mg Tab) 40 mg PO DAILY [facility] Last Admin: 06/08/20 10:20 Dose: 40 mg Documented by: Sodium Chloride (Sodium Chloride 0.9% 10 Ml Flush Syringe) 10 ml IV BID [facility] Last Admin: 06/08/20 10:20 Dose: 10 ml Documented by: Sodium Chloride (Sodium Chloride 0.9% 10 Ml Flush Syringe) 10 ml IV PRN PRN PRN Reason: LINE FLUSH Trazodone HCl (Trazodone 50 Mg Tab) 150 mg PO QHS PRN PRN Reason: Insomnia Last Admin: 06/07/20 21:47 Dose: 150 mg Documented by: Physical Examination - Physical Exam Narrative exam: Physical Exam: Constitutional: Alert, cooperative. No acute distress Head, Ears, Nose: Normocephalic, atraumatic. External ears, nose normal Eyes: Conjunctivae/corneas clear. No icterus. No ptosis. Neck: Supple, no meningeal signs Cardiovascular: S1, S2 normal. Respiratory: Good air entry, clear to auscultation bilaterally GI: Soft, non-tender; bowel sounds normal. No peritoneal signs mild suprapubic and CVA tenderness Musculoskeletal: No pedal edema, no cyanosis. Left gluteal cellulitis with induration and possible abscess Skin: No rash or abscess Hem/Lymphatic: No palpable cervical or supraclavicular nodes. No lymphangitis Psych: Mood ok. Affect normal Neurological: Awake, alert, oriented. No gross abnormality - Constitutional Vitals: Vital Signs Temp Pulse Resp BP Pulse Ox 100.2 F H 100 H 18 149/81 98 06/08/20 04:25 06/08/20 04:25 06/08/20 06:20 06/08/20 04:25 06/08/20 04:25 Temperature -Last 24 Hours Temperature 100.2 F Temperature 100.5 F Temperature 100.0 F Temperature 99.8 F Results - Labs CBC & Chem 7: 06/08/20 04:00 06/08/20 04:00 Labs: Abnormal lab results 06/07/20 06/07/20 06/07/20 Range/Units 11:29 16:47 21:09 RBC (3.65-5.03) M/mm3 Hct (30.3-42.9) % MCV (79-97) fl MCH (28-32) pg MCHC (30-34) % Plt Count (140-440) K/mm3 Seg Neutrophils % (40.0-70.0) % Sodium (137-145) mmol/L BUN (7-17) mg/dL Glucose (65-100) mg/dL POC Glucose 425 H 255 H 216 H (70-105) mg/dL 06/08/20 06/08/20 06/08/20 Range/Units 04:00 04:00 07:29 RBC 3.01 L (3.65-5.03) M/mm3 Hct 29.4 L D (30.3-42.9) % MCV 98 H (79-97) fl MCH 34 H (28-32) pg MCHC 35 H (30-34) % Plt Count 116 L (140-440) K/mm3 Seg Neutrophils % 76.6 H (40.0-70.0) % Sodium 134 L (137-145) mmol/L BUN 22 H (7-17) mg/dL Glucose 263 H (65-100) mg/dL POC Glucose 289 H (70-105) mg/dL - Imaging and Cardiology Chest x-ray: report reviewed, image reviewed (no pneumonia) Assessment and Plan Cultures: 06/06/2020 blood culture: No growth 06/06/2020 urine culture: Mixed tash A/P: 40-year-old female with diabetes, hypertension, noncompliance was admitted to the emergency room after she came in due to bilateral flank pain and suprapubic pain: #Sepsis, likely secondary to urinary tract infection/pyelonephritis given flank pain and also left gluteal abscess #Left gluteal cellulitis with abscess: Has had previous surgeries. Known to Dr. Dalal, will consult. #Diabetes mellitus, type II: Uncontrolled #SYLWIA: Creatinine improving. #HIV, follows up with Dr. Ponce. Is on Triumeq, reports excellent compliance, reports undetectable viral load. Last CD4 count in our system is 314 in September 2017 Recs: -Empiric cefepime, vancomycin -General surgery, Dr. Dalal consulted -Continue p.o. Triumeq -Follow-up cultures Estrella Dukes MD, FACP [facility] ([facility] O: [phone] F: [phone]
--- NOTE | 2020-06-08 13:06 | Consultation ---
History of Present Illness Consult date: 06/08/20 Chief complaint: buttock abscess - History of present illness History of present illness: 40 yo F with DM, HIV, hidradenitis, UTI, kidney stones who presented to hospital with c/o abdominal pain. She was admitted to be treated for sepsis, UTI. Patient also notes left inner gluteal pain and hard area which has been present for 4 days. She states that the area is now draining. +Fever. No n/v. Tolerating a diet. Past History Past Medical History: diabetes, hypertension, hyperlipidemia, other (History of HIV-CD4 count within normal limits in April 2020, hidradenitis) Past Surgical History: cholecystectomy, hysterectomy, Other (D&C,Boil/Abscess drainage right inner thigh, insulin pump placement.) Social history: no significant social history Family history: no significant family history Medications and Allergies Allergies Allergy/AdvReac Type Severity Reaction Status Date / Time iodine Allergy Swelling Verified 08/26/19 12:57 sulfamethoxazole Allergy Rash Verified 08/26/19 12:57 [From Bactrim] trimethoprim [From Bactrim] Allergy Rash Verified 08/26/19 12:57 metformin AdvReac Nausea Verified 08/26/19 12:57 seafood Allergy Rash Uncoded 02/16/18 13:38 Home Medications Medication Instructions Recorded Confirmed Last Taken Type Abacavir/Dolutegravir/Lamivudi 1 each PO DAILY 07/10/15 06/07/20 09/08/17 History [Triumeq 600-50-300 mg Tablet] buPROPion XL [Wellbutrin XL] 150 mg PO QDAY 06/02/18 06/07/20 Unknown History Cyclobenzaprine HCl [Flexeril 5 MG 5 mg PO QHS #10 tab 12/08/18 06/07/20 Unknown Rx TAB] ALBUTEROL NEB's [Proventil 0.083% 2.5 mg IH TID PRN 04/15/19 06/07/20 Unknown History NEBS] Lispro Insulin [HumaLOG] 0 unit SQ DAILY 04/15/19 06/07/20 12/29/19 History Omeprazole 40 mg PO DAILY 04/15/19 06/07/20 Unknown History Albuterol Mdi (or & Nicu Only) 2 puff IH QID PRN #8.5 gram 04/25/19 06/07/20 Unknown Rx [ProAir HFA Inhaler] Benzonatate [Tessalon Perles] 100 mg PO Q8HR #30 capsule 04/25/19 06/07/20 Unknown Rx Ibuprofen [Motrin 800 MG tab] 800 mg PO Q8HR PRN #20 tablet 04/25/19 06/07/20 Unknown Rx Fluconazole [Diflucan TAB] 100 mg PO QDAY 1 Days #1 tablet 08/26/19 06/07/20 Unknown Rx Promethazine [Phenergan] 25 mg PO Q8HR PRN #8 tab 08/26/19 06/07/20 Unknown Rx ARIPiprazole [Abilify TAB] 15 mg PO QDAY #30 12/31/19 06/07/20 Unknown Rx Acetaminophen/Codeine [Tylenol 1 tab PO Q6H PRN #20 tab 12/31/19 06/07/20 Unknown Rx /Codeine # 3 tab] AtorvaSTATin [Lipitor] 40 mg PO HS tablet 12/31/19 06/07/20 Unknown Rx Dulaglutide [Trulicity] 0.75 mg SQ QWEEK #1 12/31/19 06/07/20 Unknown Rx Gabapentin 800 mg PO TID capsule 12/31/19 06/07/20 Unknown Rx Insulin Lispro [Humalog] 0 unit SUB-Q ACHS vial 12/31/19 06/07/20 Unknown Rx Mirtazapine [Remeron 15mg TAB] 45 mg PO QHS #30 tablet 12/31/19 06/07/20 Unknown Rx Trazodone HCl 150 mg PO QHS PRN #30 12/31/19 06/07/20 Unknown Rx lisinopriL [Zestril TAB] 40 mg PO QDAY tablet 12/31/19 06/07/20 Unknown Rx Active Meds: Active Medications Abacavir Sulfate (Abacavir 300 Mg Tab) 600 mg PO DAILY [facility] Last Admin: 06/08/20 10:19 Dose: 600 mg Documented by: Acetaminophen (Acetaminophen 325 Mg Tab) 650 mg PO Q4H PRN PRN Reason: Pain MILD(1-3)/Fever >100.5/[place] Last Admin: 06/08/20 05:20 Dose: 650 mg Documented by: Aripiprazole (Aripiprazole 15 Mg Tab) 15 mg PO QDAY [facility] Last Admin: 06/08/20 10:20 Dose: 15 mg Documented by: Bupropion HCl (Bupropion Xl 150 Mg Tab) 150 mg PO QDAY [facility] Last Admin: 06/08/20 10:20 Dose: 150 mg Documented by: Dextrose (Dextrose 50% In Water (25gm) 50 Ml Syringe) 50 ml IV Q30MIN PRN; Protocol PRN Reason: Hypoglycemia Diphenhydramine HCl (Diphenhydramine 50 Mg/Ml Vial) 25 mg IV Q6H PRN PRN Reason: Itching Last Admin: 06/08/20 06:03 Dose: 25 mg Documented by: Heparin Sodium (Porcine) (Heparin 5,000 Unit/1 Ml Vial) 5,000 unit SUB-Q Q8HR [facility] Last Admin: 06/08/20 05:21 Dose: Not Given Documented by: Sodium Chloride (Nacl 0.9% 1000 Ml) 1,000 mls @ 125 mls/hr IV DIRECT [facility] Last Admin: 06/08/20 10:20 Dose: 125 mls/hr Documented by: Vancomycin HCl 1,500 mg/ (Sodium Chloride) 530 mls @ 333.333 mls/hr IV Q24H [facility] Last Admin: 06/08/20 05:20 Dose: 333.333 mls/hr Documented by: Cefepime HCl (Cefepime/Ns 2 Gm/100 Ml) 2 gm in 100 mls @ 200 mls/hr IV Q12HR [facility]; Protocol Insulin Glargine (Insulin Glargine 100 Units/Ml) 30 units SUB-Q QAM [facility] Last Admin: 06/08/20 10:25 Dose: 30 units Documented by: Insulin Human Lispro (Insulin Lispro 100 Unit/Ml) 0 unit SUB-Q [facility]; Protocol Last Admin: 06/08/20 08:00 Dose: 4 unit Documented by: Insulin Human Lispro (Insulin Lispro 100 Unit/Ml) 8 unit SUB-Q [facility] Last Admin: 06/08/20 08:00 Dose: 8 unit Documented by: Lamivudine (Lamivudine 150 Mg Tab) 300 mg PO DAILY [facility] Last Admin: 06/08/20 10:20 Dose: 300 mg Documented by: Magnesium Hydroxide (Magnesium Hydroxide (Mom) Oral Liqd Udc) 30 ml PO Q4H PRN PRN Reason: Constipation Morphine Sulfate (Morphine 2 Mg/1 Ml Inj) 2 mg IV Q4H PRN PRN Reason: Pain, Moderate (4-6) Last Admin: 06/08/20 12:14 Dose: 2 mg Documented by: Ondansetron HCl (Ondansetron 4 Mg/2 Ml Inj) 4 mg IV Q8H PRN PRN Reason: Nausea And Vomiting Last Admin: 06/08/20 12:14 Dose: 4 mg Documented by: Pantoprazole Sodium (Pantoprazole 40 Mg Tab) 40 mg PO DAILY [facility] Last Admin: 06/08/20 10:20 Dose: 40 mg Documented by: Sodium Chloride (Sodium Chloride 0.9% 10 Ml Flush Syringe) 10 ml IV BID [facility] Last Admin: 06/08/20 10:20 Dose: 10 ml Documented by: Sodium Chloride (Sodium Chloride 0.9% 10 Ml Flush Syringe) 10 ml IV PRN PRN PRN Reason: LINE FLUSH Trazodone HCl (Trazodone 50 Mg Tab) 150 mg PO QHS PRN PRN Reason: Insomnia Last Admin: 06/07/20 21:47 Dose: 150 mg Documented by: Review of Systems All systems: negative (10 point ROS performed and negative except for that listed in HPI) Exam Vital Signs Temp Pulse Resp BP Pulse Ox 100.3 F H 129 H 20 126/69 98 06/06/20 19:54 06/06/20 19:54 06/06/20 19:54 06/06/20 19:54 06/06/20 19:54 Narrative exam: Gen.: Awake, alert, oriented 3. No apparent distress ENT: Trachea midline. No lymphadenopathy. No scleral icterus or conjunctival pallor CV: S1, S2 present Respiratory: No audible wheezes Gluteal: 4 cm fluctuant area of left inner gluteal cleft with surrounding induration. No drainage. +Erythema. + TTP Results - Labs 06/08/20 04:00 06/08/20 04:00 Abnormal lab results 06/07/20 06/07/20 06/08/20 Range/Units 16:47 21:09 04:00 RBC 3.01 L (3.65-5.03) M/mm3 Hct 29.4 L D (30.3-42.9) % MCV 98 H (79-97) fl MCH 34 H (28-32) pg MCHC 35 H (30-34) % Plt Count 116 L (140-440) K/mm3 Seg Neutrophils % 76.6 H (40.0-70.0) % Sodium (137-145) mmol/L BUN (7-17) mg/dL Glucose (65-100) mg/dL POC Glucose 255 H 216 H (70-105) mg/dL 06/08/20 06/08/20 06/08/20 Range/Units 04:00 07:29 11:57 RBC (3.65-5.03) M/mm3 Hct (30.3-42.9) % MCV (79-97) fl MCH (28-32) pg MCHC (30-34) % Plt Count (140-440) K/mm3 Seg Neutrophils % (40.0-70.0) % Sodium 134 L (137-145) mmol/L BUN 22 H (7-17) mg/dL Glucose 263 H (65-100) mg/dL POC Glucose 289 H 328 H (70-105) mg/dL Diabetes panel 06/08/20 Range/Units 04:00 Sodium 134 L (137-145) mmol/L Potassium 4.3 (3.6-5.0) mmol/L Chloride 102.0 (98-107) mmol/L Carbon Dioxide 24 (22-30) mmol/L BUN 22 H (7-17) mg/dL Creatinine 1.2 (0.6-1.2) mg/dL Glucose 263 H (65-100) mg/dL Calcium 8.7 (8.4-10.2) mg/dL Calcium panel 06/08/20 Range/Units 04:00 Calcium 8.7 (8.4-10.2) mg/dL Pituitary panel 06/08/20 Range/Units 04:00 Sodium 134 L (137-145) mmol/L Potassium 4.3 (3.6-5.0) mmol/L Chloride 102.0 (98-107) mmol/L Carbon Dioxide 24 (22-30) mmol/L BUN 22 H (7-17) mg/dL Creatinine 1.2 (0.6-1.2) mg/dL Glucose 263 H (65-100) mg/dL Calcium 8.7 (8.4-10.2) mg/dL Adrenal panel 06/08/20 Range/Units 04:00 Sodium 134 L (137-145) mmol/L Potassium 4.3 (3.6-5.0) mmol/L Chloride 102.0 (98-107) mmol/L Carbon Dioxide 24 (22-30) mmol/L BUN 22 H (7-17) mg/dL Creatinine 1.2 (0.6-1.2) mg/dL Glucose 263 H (65-100) mg/dL Calcium 8.7 (8.4-10.2) mg/dL - Imaging CT scan - abdomen: report reviewed, image reviewed CT scan - pelvis: report reviewed, image reviewed Assessment and Plan 40 yo F with 1. L Gluteal cellulitis/abscess 2. UTI 3. sepsis Ct scan A/P shows induration along left gluteal cleft Plan: 1. continue abx per ID 2. obtain wound cultures 3. Recommend incision and drainage of left gluteal abscess. Discussed with patient and consent obtained. Pt refusing attempt at bedside I&D. Will be added to OR for tomorrow as patient has not been NPO today. 4. NPO p MN tonight 5. obtain HbA1C 6. strict glucose control Thank you, please call with questions.
[2020-06-08] MEDS: CEFEPIME/NS 2 GM/100 ML 2 GM/100 ML BAG IV SCH ×2 (13:22→21:04)
--- NOTE | 2020-06-08 15:47 | Anesthesia Consultation ---
Anesthesia Consult and Med Hx Date of service: 06/09/20 - Airway Anesthetic Teeth Evaluation: Good ROM Head & Neck: Adequate Mental/Hyoid Distance: Adequate Mallampati Class: Class I Intubation Access Assessment: Good (previous LMA 3) - Pre-Operative Health Status ASA Pre-Surgery Classification: ASA3 Proposed Anesthetic Plan: MAC - Pulmonary Hx Smoking: Yes (1/2 PPD) Hx Asthma: Yes (lasty inhaler use 03/2020) Hx Respiratory Symptoms: No - Cardiovascular System Hx Hypertension: Yes Hx Heart Attack/AMI: No - Central Nervous System Hx Neuromuscular Disorder: No (peripheral neuropathy) CVA: No - Endocrine Hx Renal Disease: No Hx Liver Disease: No Hx Insulin Dependent Diabetes: Yes Hx Thyroid Disease: No - Hematic Hx Anemia: Yes - Other Systems Hx Obesity: Yes (BMI 42) - Additional Comments Anesthesia Medical History Comments: No hx anesthetic complications. PMH HIV on ARVs.
[2020-06-08] MEDS: traZODone 50 MG TAB PO PRN (20:50)
[2020-06-09] MEDS: MORPHINE 2 MG/1 ML INJ IV PRN ×6 (00:50→21:21)
[2020-06-09] MEDS: ONDANSETRON 4 MG/2 ML INJ IV PRN ×2 (04:54→12:44)
[2020-06-09] MEDS: HEPARIN 5,000 UNIT/1 ML VIAL SUB-Q SCH ×3 (05:55→21:20)
[2020-06-09] MEDS: VANCOMYCIN 1,500 MG in SODIUM CHLORIDE 0.9% 500 ML 500 ML IV SCH ×2 (06:01→23:28)
[2020-06-09] MEDS: SODIUM CHLORIDE 0.9% 1000 ML 1,000 ML IV SCH ×2 (06:06→21:00)
[2020-06-09 06:07] LABS: Calcium 8.7 mg/dL (8.4-10.2)
[2020-06-09 06:22] LABS: Basophils % (Auto) 0.1 % (0.0-1.8); Eosinophils # (Auto) 0.1 K/mm3 (0.0-0.4); Eosinophils % (Auto) 0.6 % (0.0-4.3); Hematocrit 29.9 % (30.3-42.9); Hemoglobin 10.1 gm/dl (10.1-14.3); Lymphocytes # (Auto) 1.5 K/mm3 (1.2-5.4); Lymphocytes % (Auto) 13.4 % (13.4-35.0); Mean Corpuscular HGB Conc 34 % (30-34); Mean Corpuscular Volume 99 fl (79-97); Platelet Count 127 K/mm3 (140-440); Red Blood Count 3.01 M/mm3 (3.65-5.03); Red Cell Distribution Width 13.4 % (13.2-15.2)
[2020-06-09] MEDS: INSULIN LISPRO 100 UNIT/ML SUB-Q SCH ×8 (08:24→23:14)
--- NOTE | 2020-06-09 08:48 | Progress Note ---
Assessment and Plan Assessment and plan: UTI. Cellulitis of buttocks. Sepsis. Diabetes mellitus type 2. Hypertension Left renal calculus. 06/08/2020. Continue antibiotics of Rocephin and vancomycin. ID consultation pending. Continue to monitor temperature curve. Follow-up blood and urine cultures. Continue Lantus, SSRI and Accu-Cheks. 06/09/2020. Continue antibiotics per ID recommendations. Surgery evaluated the patient and recommends incision and drainage of left gluteal abscess in OR today. Continue tight glycemic control. Increase Lantus to 35 units. History Interval history: No new issues overnight. Patient still reports fevers. Hospitalist Physical - Constitutional Vitals: Temp Pulse Resp BP Pulse Ox 100.9 F H 109 H 18 173/91 90 06/09/20 05:31 06/09/20 05:31 06/09/20 05:31 06/09/20 05:31 06/09/20 05:31 General appearance: Present: no acute distress, well-nourished - EENT Eyes: Present: PERRL, EOM intact ENT: hearing intact, clear oral mucosa, dentition normal - Neck Neck: Present: supple, normal ROM - Respiratory Respiratory effort: normal Respiratory: bilateral: CTA - Cardiovascular Rhythm: regular Heart Sounds: Present: S1 & S2. Absent: gallop, rub - Extremities Extremities: no ischemia, No edema, Full ROM - Abdominal General gastrointestinal: soft, non-tender, non-distended, normal bowel sounds - Integumentary Integumentary: Present: clear, warm, dry - Neurologic Neurologic: CNII-XII intact, moves all extremities Results - Labs CBC & Chem 7: 06/09/20 04:43 06/09/20 04:43 Labs: Laboratory Last Values WBC 11.0 K/mm3 (4.5-11.0) 06/09/20 04:43 RBC 3.01 M/mm3 (3.65-5.03) L 06/09/20 04:43 Hgb 10.1 gm/dl (10.1-14.3) 06/09/20 04:43 Hct 29.9 % (30.3-42.9) L 06/09/20 04:43 MCV 99 fl (79-97) H 06/09/20 04:43 MCH 34 pg (28-32) H 06/09/20 04:43 MCHC 34 % (30-34) 06/09/20 04:43 RDW 13.4 % (13.2-15.2) 06/09/20 04:43 Plt Count 127 K/mm3 (140-440) L 06/09/20 04:43 Lymph % (Auto) 13.4 % (13.4-35.0) 06/09/20 04:43 [place] % (Auto) 9.0 % (0.0-7.3) H 06/09/20 04:43 Eos % (Auto) 0.6 % (0.0-4.3) 06/09/20 04:43 Baso % (Auto) 0.1 % (0.0-1.8) 06/09/20 04:43 Lymph # (Auto) 1.5 K/mm3 (1.2-5.4) 06/09/20 04:43 [place] # (Auto) 1.0 K/mm3 (0.0-0.8) H 06/09/20 04:43 Eos # (Auto) 0.1 K/mm3 (0.0-0.4) 06/09/20 04:43 Baso # (Auto) 0.0 K/mm3 (0.0-0.1) 06/09/20 04:43 Seg Neutrophils % 76.9 % (40.0-70.0) H 06/09/20 04:43 Seg Neutrophils # 8.5 K/mm3 (1.8-7.7) H 06/09/20 04:43 PT 12.9 Sec. (12.2-14.9) 06/08/20 04:00 INR 0.99 (0.87-1.13) 06/08/20 04:00 Sodium 134 mmol/L (137-145) L 06/09/20 04:43 Potassium 4.0 mmol/L (3.6-5.0) 06/09/20 04:43 Chloride 102.1 mmol/L (98-107) 06/09/20 04:43 Carbon Dioxide 22 mmol/L (22-30) 06/09/20 04:43 Anion Gap 14 mmol/L 06/09/20 04:43 BUN 17 mg/dL (7-17) 06/09/20 04:43 Creatinine 1.1 mg/dL (0.6-1.2) 06/09/20 04:43 Estimated GFR 55 ml/min 06/09/20 04:43 BUN/Creatinine Ratio 15 % 06/09/20 04:43 Glucose 173 mg/dL (65-100) H 06/09/20 04:43 POC Glucose 262 mg/dL (70-105) H 06/08/20 20:49 Hemoglobin A1c 12.0 % (4-6) H 06/09/20 04:43 Lactic Acid 1.70 mmol/L (0.7-2.0) 06/06/20 22:34 Calcium 8.7 mg/dL (8.4-10.2) 06/09/20 04:43 Total Bilirubin 0.50 mg/dL (0.1-1.2) 06/06/20 19:59 AST 15 units/L (5-40) 06/06/20 19:59 ALT 29 units/L (7-56) 06/06/20 19:59 Alkaline Phosphatase 115 units/L (35-129) 06/06/20 19:59 Total Protein 6.6 g/dL (6.3-8.2) 06/06/20 19:59 Albumin 3.7 g/dL (3.9-5) L 06/06/20 19:59 Albumin/Globulin Ratio 1.3 % 06/06/20 19:59 HCG, Qual Negative (Negative) 06/06/20 23:19 Urine Color Yellow (Yellow) 06/06/20 Unknown Urine Turbidity Slightly-cloudy (Clear) 06/06/20 Unknown Urine pH 5.0 (5.0-7.0) 06/06/20 Unknown Ur Specific [place] 1.023 (1.003-1.030) 06/06/20 Unknown Urine Protein >500 mg/dL (Negative) 06/06/20 Unknown Urine Glucose (UA) >=500 mg/dL (Negative) 06/06/20 Unknown Urine Ketones Neg mg/dL (Negative) 06/06/20 Unknown Urine Blood Sm (Negative) 06/06/20 Unknown Urine Nitrite Neg (Negative) 06/06/20 Unknown Urine Bilirubin Neg (Negative) 06/06/20 Unknown Urine Urobilinogen < 2.0 mg/dL (<2.0) 06/06/20 Unknown Ur Leukocyte Esterase Neg (Negative) 06/06/20 Unknown Urine WBC (Auto) 16.0 /HPF (0.0-6.0) H 06/06/20 Unknown Urine RBC (Auto) 8.0 /HPF (0.0-6.0) 06/06/20 Unknown U Epithel Cells (Auto) 5.0 /HPF (0-13.0) 06/06/20 Unknown Urine Bacteria (Auto) 1+ /HPF (Negative) 06/06/20 Unknown Urine Mucus Few /HPF 06/06/20 Unknown Microbiology: Microbiology 06/06/20 19:59 Peripheral/Venous Blood Culture - Preliminary NO GROWTH AFTER 48 HOURS 06/06/20 19:59 Peripheral/Venous Blood Culture - Preliminary NO GROWTH AFTER 48 HOURS 06/06/20 Unknown Urine,Clean Catch Urine Culture - Preliminary [place]/IV: Voiding Method Toilet Active Medications - Current Medications Current Medications: Generic Name Dose Route Start Last Admin Trade Name Freq PRN Reason Stop Dose Admin Abacavir Sulfate 600 mg 06/07/20 10:00 06/08/20 10:19 Abacavir 300 Mg Tab PO 600 mg DAILY GRIS Administration Acetaminophen 650 mg 06/07/20 00:59 06/08/20 23:41 Acetaminophen 325 Mg Tab PO 650 mg Q4H PRN Administration Pain MILD(1-3)/Fever >100.5/[place] Aripiprazole 15 mg 06/07/20 10:00 06/08/20 10:20 Aripiprazole 15 Mg Tab PO 15 mg QDAY GRIS Administration Bupropion HCl 150 mg 06/07/20 10:00 06/08/20 10:20 Bupropion Xl 150 Mg Tab PO 150 mg QDAY GRIS Administration Dextrose 50 ml 06/07/20 00:59 Dextrose 50% In Water (25gm) 50 Ml Syringe IV Q30MIN PRN Hypoglycemia Protocol Diphenhydramine HCl 25 mg 06/07/20 08:16 06/08/20 21:02 Diphenhydramine 50 Mg/Ml Vial IV 25 mg Q6H PRN Administration Itching Heparin Sodium (Porcine) 5,000 unit 06/07/20 06:00 06/09/20 05:55 Heparin 5,000 Unit/1 Ml Vial SUB-Q Not Given Q8HR GRIS Sodium Chloride 1,000 mls @ 125 mls/hr 06/07/20 01:00 06/09/20 06:06 Nacl 0.9% 1000 Ml IV 125 mls/hr DIRECT GRIS Administration Cefepime HCl 2 gm in 100 mls @ 200 mls/hr 06/08/20 12:00 06/08/20 21:04 Cefepime/Ns 2 Gm/100 Ml IV 200 mls/hr Q12HR GRIS Administration Protocol Vancomycin HCl 1,500 mg/ 530 mls @ 333.333 mls/hr 06/09/20 18:00 Sodium Chloride IV Q12H GRIS Insulin Glargine 30 units 06/08/20 08:00 06/08/20 10:25 Insulin Glargine 100 Units/Ml SUB-Q 30 units QAM [facility] Administration Insulin Human Lispro 0 unit 06/07/20 07:30 06/09/20 08:24 Insulin Lispro 100 Unit/Ml SUB-Q 4 unit ACHS [facility] Administration Protocol Insulin Human Lispro 8 unit 06/07/20 11:30 06/09/20 08:24 Insulin Lispro 100 Unit/Ml SUB-Q 8 unit ACHS [facility] Administration Lamivudine 300 mg 06/07/20 10:00 06/08/20 10:20 Lamivudine 150 Mg Tab PO 300 mg DAILY GRIS Administration Magnesium Hydroxide 30 ml 06/07/20 00:59 Magnesium Hydroxide (Mom) Oral Liqd Udc PO Q4H PRN Constipation Morphine Sulfate 2 mg 06/07/20 00:59 06/09/20 04:51 Morphine 2 Mg/1 Ml Inj IV 2 mg Q4H PRN Administration Pain, Moderate (4-6) Ondansetron HCl 4 mg 06/07/20 00:59 06/09/20 04:54 Ondansetron 4 Mg/2 Ml Inj IV 4 mg Q8H PRN Administration Nausea And Vomiting Pantoprazole Sodium 40 mg 06/07/20 10:00 06/08/20 10:20 Pantoprazole 40 Mg Tab PO 40 mg DAILY GRIS Administration Sodium Chloride 10 ml 06/07/20 10:00 06/08/20 21:02 Sodium Chloride 0.9% 10 Ml Flush Syringe IV 10 ml BID GRIS Administration Sodium Chloride 10 ml 06/07/20 00:59 Sodium Chloride 0.9% 10 Ml Flush Syringe IV PRN PRN LINE FLUSH Trazodone HCl 150 mg 06/07/20 01:52 06/08/20 20:50 Trazodone 50 Mg Tab PO 150 mg QHS PRN Administration Insomnia Nutrition/Malnutrition Assess - Dietary Evaluation Nutrition/Malnutrition Findings: Nutrition Notes Start: 06/07/20 14:33 Freq: Status: Active Protocol: Document 06/07/20 14:33 AL (Rec: 06/07/20 14:42 AL [id number]) Co-Sign 06/07/20 14:33 LP Nutrition Notes Need for Assessment generated from: MD Order,Education Initial or Follow up Assessment Current Diagnosis Diabetes,Sepsis,Hypertension, Hyperlipidemia Other Pertinent Diagnosis UTI, HIV Current Diet Cardiac/Consistent CHO Labs/Tests Na 131 BUN 21 Cr 1.3 BG 343 Pertinent Medications Humalog Height 5 ft 3 in Weight 107.3 kg [place] Body Weight (kg) 52.27 BMI 41.9 Weight change and time frame wt change noted Weight Status Morbidly Obese Subjective/Other Information MD consult for diet education. Diet education conducted on Heart Healthy diet, N/V, and CHO counting. Pt tired and lethargic, but still alert. Diet education well accepted. Pt tolerates current diet at 100%. Burn Absent Trauma Absent GI Symptoms Nausea,Vomiting Current % PO Fair (50-74%) Minimum of two criteria No #1 Nutrition Diagnosis Food and nutrition-related knowledge deficit Etiology DM, HLD, HTN, N/V As Evidenced by Signs and Symptoms Pt had not received diet education before. Is patient on ventilator? No Is Patient Ambulatory and/or Out of Bed Yes REE-([facility]-ambulatory/OOB) [ 2232.269 NUTR.MSJOOB] Kcal/Kg value to use for calculation 16 Approximate Energy Requirements Using 1717 kcal/Kg Calculation Used for Recommendations Kcal/kg Additional Notes Protein: 63-80 g (.8-1.0 g/kg AdBW 80 kg) Fluid: 1 ml/kcal Nutrition Intervention Change Diet Order: Continue Current diet Teaching Recipient Patient Learning Readiness Good Teaching Methods Discussion,Handout Response to Teaching Verbalize understanding Education Handouts Provided Heart Healthy Consistent Carbohydrate Nutrition Therapy Barriers to Learning No Barriers RD phone number provided Yes Patient aware of follow up options Yes Goal #1 Meet 75% of estimated energy and protein needs PO Revisit per MD consult or patient Sign Off request:
[2020-06-09] MEDS ORDERED: BUPIVACAINE/PF (0.5%) 5 MG/1 ML 30 ML VIAL INFILTRATI ONE ×2 (08:49→10:14)
[2020-06-09] MEDS ORDERED: LIDOCAINE (1%) 10 MG/1 ML VIAL 20 ML MDV ONE (08:49)
[2020-06-09] MEDS ORDERED: KETOROLAC 30 MG/1 ML INJ ONE (08:57)
[2020-06-09] MEDS ORDERED: HYDROmorphone 1 MG/1 ML INJ ONE (08:57)
[2020-06-09] MEDS ORDERED: LIDOCAINE MPF (2%) 20 MG/1 ML VIAL 5 ML ONE (08:57)
[2020-06-09] MEDS ORDERED: dexAMETHasone 20 MG/5 ML VIAL ONE (08:57)
[2020-06-09] MEDS ORDERED: ONDANSETRON 4 MG/2 ML INJ ONE (08:57)
[2020-06-09] MEDS ORDERED: propofoL 200 MG/20 ML VIAL IV ONE (08:57)
[2020-06-09] MEDS ORDERED: KETAMINE/STERILE WATER 50 MG/ML SYRINGE ONE (08:58)
[2020-06-09] MEDS: CEFEPIME/NS 2 GM/100 ML 2 GM/100 ML BAG IV SCH ×2 (09:08→21:22)
--- NOTE | 2020-06-09 09:17 | Anesthesia Day of Surgery ---
Anesthesia Day of Surgery - Day of Surgery Patient Examined: Yes Patient H&P Reviewed: Yes Patient is NPO: Yes Beta Blockers: No Cardiac Clearance: No Pulmonary Clearance: No Angel's Test: N/A
[2020-06-09] MEDS ORDERED: MIDAZOLAM 2 MG/2 ML INJ ONE (10:02)
[2020-06-09] MEDS ORDERED: LIDOCAINE (1%) 10 MG/1 ML VIAL 20 ML MDV INFILTRATI ONE (10:14)
[2020-06-09] MEDS ORDERED: SODIUM CHLORIDE 0.9% IRR 1,500 ML BOTTLE IR ONE (10:14)
[2020-06-09] MEDS ORDERED: SODIUM CHLORIDE 0.9% 1000 ML 1,000 ML ONE (10:32)
--- NOTE | 2020-06-09 10:36 | Operative Report ---
Operative Report Operative Report: Date of surgery: 06/09/2020 Preoperative diagnosis: Right gluteal abscess Postoperative diagnosis: Same as above Procedure: Incision and drainage, excisional debridement of right gluteal abscess Surgeon: Juan Antonio Dalal DO Anesthesia MAC, local Findings: 5 cm abscess cavity of the right gluteal cleft EBL: 5 cc Specimen: Wound cultures Complications: None Disposition: Stable to PACU HPI and indication: Patient is a 40-year-old female with a past medical history of diabetes, HIV, hidradenitis who presented to the emergency room with abdominal pain and fevers. The patient was found to have a UTI and was being treated accordingly. She was also found to have pain and swelling in the right intergluteal cleft with some drainage. On physical exam she was found to have fluctuance and induration in this area consistent with abscess. It was recommended that the abscess be drained. Patient was unable to have this performed at the bedside and therefore it was recommended to perform in the operating room under anesthesia. All risk benefits, alternatives of surgery discussed with patient questions answered. Consent obtained. Procedure in detail: Patient was identified in the preoperative area, taken back to the operating room and placed on the operating room table in right lateral decubitus position. All bony prominences were padded appropriately and the patient was supported with a beanbag. After anesthesia was induced the buttocks were taped apart using silk tape and the right gluteal cleft was prepped and draped in usual sterile fashion. Timeout was performed. Local anesthetic was infiltrated to skin at the intended incision site. There was a small area of necrotic skin overlying the abscess cavity. Using an 11 blade the necrotic tissue was excised and an inverted T incision was made in order to unroofed the abscess cavity. There was immediate drainage of foul-smelling pus. Wound cultures were obtained. The cavity was probed with a gloved finger in order to break up all loculations. The abscess cavity traveled along the intergluteal cleft. There was also some necrotic tissue in the abscess cavity which was debrided sharply using forceps and Metzenbaum scissors. The debridement was carried through the skin and subcutaneous tissue levels. Once all of the purulent fluid was expressed and the abscess cavity debrided, the wound was irrigated with saline. Hemostasis was carefully ensured. More local anesthetic was infiltrated into the skin around the wound. The wound measured approximately 2.5 cm x 2.5 cm x 5 cm. The wound was packed with 1 piece of half inch plain packing soaked in Betadine. The skin was cleansed and the wound was covered with 4 x 4 fluff gauze, ABD pad, tape. At the end of the case all sponge, instrument, sharp counts were correct x2. The patient was awoken from anesthesia and taken the PACU in stable condition.
[2020-06-09] MEDS ORDERED: MORPHINE 4 MG/1 ML INJ IV ONE (10:46)
[2020-06-09] MEDS ORDERED: ONDANSETRON 4 MG/2 ML INJ IV ONE (10:46)
--- NOTE | 2020-06-09 12:03 | Post Anesthesia Evaluation ---
- Post Anesthesia Evaluation Patient Participated: Yes Airway Patent: Yes Stable Respiratory Function: Yes Nausea/Vomiting: No Temp > 96.8F: Yes Pain Manageable: Yes Adequeate Hydration: Yes Anesthesia Complications: No Block Receding Appropriately: Not Applicable Patient on Ventilator: No
[2020-06-09] MEDS: ARIPiprazole 15 MG TAB PO SCH (12:45)
[2020-06-09] MEDS: ABACAVIR 300 MG TAB PO SCH (12:45)
[2020-06-09] MEDS: DOLUTEGRAVIR 50 MG TAB PO SCH (12:45)
[2020-06-09] MEDS: INSULIN GLARGINE 100 UNITS/ML SUB-Q SCH (12:46)
[2020-06-09] MEDS: PANTOPRAZOLE 40 MG TAB PO SCH (12:57)
[2020-06-09] MEDS: HYDROcodone/ACETAMINOPHEN 5-325 MG TAB PO PRN ×2 (14:28→20:29)
[2020-06-09] MEDS: buPROPion XL 150 MG TAB PO SCH (14:28)
[2020-06-09] MEDS: diphenhydrAMINE 50 MG/ML VIAL IV PRN (17:23)
[2020-06-10] MEDS: MORPHINE 2 MG/1 ML INJ IV PRN ×3 (03:55→19:53)
[2020-06-10] MEDS: HEPARIN 5,000 UNIT/1 ML VIAL SUB-Q SCH ×3 (05:50→21:08)
[2020-06-10] MEDS: diphenhydrAMINE 50 MG/ML VIAL IV PRN ×3 (05:51→22:01)
[2020-06-10] MEDS: SODIUM CHLORIDE 0.9% 1000 ML 1,000 ML IV SCH ×2 (05:51→21:09)
[2020-06-10 06:01] LABS: Basophils % (Auto) 0.1 % (0.0-1.8); Eosinophils # (Auto) 0.1 K/mm3 (0.0-0.4); Eosinophils % (Auto) 0.5 % (0.0-4.3); Hematocrit 27.7 % (30.3-42.9); Hemoglobin 9.4 gm/dl (10.1-14.3); Lymphocytes # (Auto) 1.4 K/mm3 (1.2-5.4); Lymphocytes % (Auto) 12.8 % (13.4-35.0); Mean Corpuscular HGB Conc 34 % (30-34); Mean Corpuscular Volume 100 fl (79-97); Monocytes # (Auto) 0.9 K/mm3 (0.0-0.8); Monocytes % (Auto) 8.8 % (0.0-7.3); Platelet Count 125 K/mm3 (140-440); Red Blood Count 2.77 M/mm3 (3.65-5.03); Red Cell Distribution Width 13.5 % (13.2-15.2)
[2020-06-10 06:22] LABS: Calcium 8.6 mg/dL (8.4-10.2)
[2020-06-10] MEDS: INSULIN LISPRO 100 UNIT/ML SUB-Q SCH ×8 (08:00→23:00)
--- NOTE | 2020-06-10 08:34 | Progress Note ---
Assessment and Plan Assessment and plan: UTI. Right gluteal abscess/cellulitis. Sepsis. Etiology secondary to above. Diabetes mellitus type 2. Hypertension Left renal calculus. 06/08/2020. Continue antibiotics of Rocephin and vancomycin. ID consultation pending. Continue to monitor temperature curve. Follow-up blood and urine cultures. Continue Lantus, SSRI and Accu-Cheks. 06/09/2020. Continue antibiotics per ID recommendations. Surgery evaluated the patient and recommends incision and drainage of left gluteal abscess in OR toda y. Continue tight glycemic control. Increase Lantus to 35 units. 06/10/2020. Patient is s/p Incision and drainage, excisional debridement of right gluteal abscess. Surgery found 5 cm abscess cavity of the right gluteal cleft. Follow-up blood and wound cultures. Continue antibiotics per ID recom mendations. Tight glycemic control. Continue Lantus 35 units. History Interval history: No new issues overnight. Patient with status post I&D/excisional debridement of right gluteal abscess Hospitalist Physical - Constitutional Vitals: Temp Pulse Resp BP Pulse Ox 100.8 F H 101 H 20 163/80 92 06/10/20 05:15 06/10/20 05:15 06/10/20 05:15 06/10/20 05:15 06/10/20 05:15 General appearance: Present: no acute distress, well-nourished - EENT Eyes: Present: PERRL, EOM intact ENT: hearing intact, clear oral mucosa, dentition normal - Neck Neck: Present: supple, normal ROM - Respiratory Respiratory effort: normal Respiratory: bilateral: CTA - Cardiovascular Rhythm: regular Heart Sounds: Present: S1 & S2. Absent: gallop, rub - Extremities Extremities: no ischemia, No edema, Full ROM - Abdominal General gastrointestinal: soft, non-tender, non-distended, normal bowel sounds - Integumentary Integumentary: Present: clear, warm, dry - Neurologic Neurologic: CNII-XII intact, moves all extremities Results - Labs CBC & Chem 7: 06/10/20 05:05 06/10/20 05:05 Labs: Laboratory Last Values WBC 10.6 K/mm3 (4.5-11.0) 06/10/20 05:05 RBC 2.77 M/mm3 (3.65-5.03) L 06/10/20 05:05 Hgb 9.4 gm/dl (10.1-14.3) L 06/10/20 05:05 Hct 27.7 % (30.3-42.9) L 06/10/20 05:05 MCV 100 fl (79-97) H 06/10/20 05:05 MCH 34 pg (28-32) H 06/10/20 05:05 MCHC 34 % (30-34) 06/10/20 05:05 RDW 13.5 % (13.2-15.2) 06/10/20 05:05 Plt Count 125 K/mm3 (140-440) L 06/10/20 05:05 Lymph % (Auto) 12.8 % (13.4-35.0) L 06/10/20 05:05 [place] % (Auto) 8.8 % (0.0-7.3) H 06/10/20 05:05 Eos % (Auto) 0.5 % (0.0-4.3) 06/10/20 05:05 Baso % (Auto) 0.1 % (0.0-1.8) 06/10/20 05:05 Lymph # (Auto) 1.4 K/mm3 (1.2-5.4) 06/10/20 05:05 [place] # (Auto) 0.9 K/mm3 (0.0-0.8) H 06/10/20 05:05 Eos # (Auto) 0.1 K/mm3 (0.0-0.4) 06/10/20 05:05 Baso # (Auto) 0.0 K/mm3 (0.0-0.1) 06/10/20 05:05 Seg Neutrophils % 77.8 % (40.0-70.0) H 06/10/20 05:05 Seg Neutrophils # 8.3 K/mm3 (1.8-7.7) H 06/10/20 05:05 PT 12.9 Sec. (12.2-14.9) 06/08/20 04:00 INR 0.99 (0.87-1.13) 06/08/20 04:00 Sodium 135 mmol/L (137-145) L 06/10/20 05:05 Potassium 4.0 mmol/L (3.6-5.0) 06/10/20 05:05 Chloride 105.0 mmol/L (98-107) 06/10/20 05:05 Carbon Dioxide 21 mmol/L (22-30) L 06/10/20 05:05 Anion Gap 13 mmol/L 06/10/20 05:05 BUN 15 mg/dL (7-17) 06/10/20 05:05 Creatinine 1.1 mg/dL (0.6-1.2) 06/10/20 05:05 Estimated GFR 55 ml/min 06/10/20 05:05 BUN/Creatinine Ratio 14 % 06/10/20 05:05 Glucose 192 mg/dL (65-100) H 06/10/20 05:05 POC Glucose 117 mg/dL (70-105) H 06/09/20 21:28 Hemoglobin A1c 12.0 % (4-6) H 06/09/20 04:43 Lactic Acid 1.70 mmol/L (0.7-2.0) 06/06/20 22:34 Calcium 8.6 mg/dL (8.4-10.2) 06/10/20 05:05 Total Bilirubin 0.50 mg/dL (0.1-1.2) 06/06/20 19:59 AST 15 units/L (5-40) 06/06/20 19:59 ALT 29 units/L (7-56) 06/06/20 19:59 Alkaline Phosphatase 115 units/L (35-129) 06/06/20 19:59 Total Protein 6.6 g/dL (6.3-8.2) 06/06/20 19:59 Albumin 3.7 g/dL (3.9-5) L 06/06/20 19:59 Albumin/Globulin Ratio 1.3 % 06/06/20 19:59 HCG, Qual Negative (Negative) 06/06/20 23:19 Urine Color Yellow (Yellow) 06/06/20 Unknown Urine Turbidity Slightly-cloudy (Clear) 06/06/20 Unknown Urine pH 5.0 (5.0-7.0) 06/06/20 Unknown Ur Specific [place] 1.023 (1.003-1.030) 06/06/20 Unknown Urine Protein >500 mg/dL (Negative) 06/06/20 Unknown Urine Glucose (UA) >=500 mg/dL (Negative) 06/06/20 Unknown Urine Ketones Neg mg/dL (Negative) 06/06/20 Unknown Urine Blood Sm (Negative) 06/06/20 Unknown Urine Nitrite Neg (Negative) 06/06/20 Unknown Urine Bilirubin Neg (Negative) 06/06/20 Unknown Urine Urobilinogen < 2.0 mg/dL (<2.0) 06/06/20 Unknown Ur Leukocyte Esterase Neg (Negative) 06/06/20 Unknown Urine WBC (Auto) 16.0 /HPF (0.0-6.0) H 06/06/20 Unknown Urine RBC (Auto) 8.0 /HPF (0.0-6.0) 06/06/20 Unknown U Epithel Cells (Auto) 5.0 /HPF (0-13.0) 06/06/20 Unknown Urine Bacteria (Auto) 1+ /HPF (Negative) 06/06/20 Unknown Urine Mucus Few /HPF 06/06/20 Unknown Microbiology: Microbiology 06/06/20 19:59 Peripheral/Venous Blood Culture - Preliminary NO GROWTH AFTER 72 HOURS 06/06/20 19:59 Peripheral/Venous Blood Culture - Preliminary NO GROWTH AFTER 72 HOURS 06/09/20 Unknown Buttock Surgical Culture - Preliminary 06/06/20 Unknown Urine,Clean Catch Urine Culture - Final [place]/IV: Voiding Method Toilet Active Medications - Current Medications Current Medications: Generic Name Dose Route Start Last Admin Trade Name Freq PRN Reason Stop Dose Admin Abacavir Sulfate 600 mg 06/07/20 10:00 06/09/20 12:45 Abacavir 300 Mg Tab PO 600 mg DAILY GRIS Administration Acetaminophen 650 mg 06/07/20 00:59 06/08/20 23:41 Acetaminophen 325 Mg Tab PO 650 mg Q4H PRN Administration Pain MILD(1-3)/Fever >100.5/[place] Hydrocodone Bitart/Acetaminophen 1 each 06/09/20 11:00 06/09/20 20:29 Hydrocodone/Acetaminophen 5-325 Mg Tab PO 1 each Q4H PRN Administration Pain, Moderate (4-6) Aripiprazole 15 mg 06/07/20 10:00 06/09/20 12:45 Aripiprazole 15 Mg Tab PO 15 mg QDAY GRIS Administration Bupropion HCl 150 mg 06/07/20 10:00 06/09/20 14:28 Bupropion Xl 150 Mg Tab PO 150 mg QDAY GRIS Administration Dextrose 50 ml 06/07/20 00:59 Dextrose 50% In Water (25gm) 50 Ml Syringe IV Q30MIN PRN Hypoglycemia Protocol Diphenhydramine HCl 25 mg 06/07/20 08:16 06/10/20 05:51 Diphenhydramine 50 Mg/Ml Vial IV 25 mg Q6H PRN Administration Itching Heparin Sodium (Porcine) 5,000 unit 06/07/20 06:00 06/10/20 05:50 Heparin 5,000 Unit/1 Ml Vial SUB-Q 5,000 unit Q8HR GRIS Administration Sodium Chloride 1,000 mls @ 125 mls/hr 06/07/20 01:00 06/10/20 05:51 Nacl 0.9% 1000 Ml IV 125 mls/hr DIRECT GRIS Administration Cefepime HCl 2 gm in 100 mls @ 200 mls/hr 06/08/20 12:00 06/09/20 21:22 Cefepime/Ns 2 Gm/100 Ml IV 200 mls/hr Q12HR GRIS Administration Protocol Vancomycin HCl 1,500 mg/ 530 mls @ 333.333 mls/hr 06/09/20 18:00 06/09/20 23:28 Sodium Chloride IV 333.333 mls/hr Q12H GRIS Administration Insulin Glargine 35 units 06/09/20 10:00 06/09/20 12:46 Insulin Glargine 100 Units/Ml SUB-Q 35 units QAM GRIS Administration Insulin Human Lispro 0 unit 06/07/20 07:30 06/09/20 23:13 Insulin Lispro 100 Unit/Ml SUB-Q Not Given ACHS [facility] Protocol Insulin Human Lispro 8 unit 06/07/20 11:30 06/09/20 23:14 Insulin Lispro 100 Unit/Ml SUB-Q Not Given ACHS GRIS Lamivudine 300 mg 06/07/20 10:00 06/09/20 12:46 Lamivudine 150 Mg Tab PO 300 mg DAILY GRIS Administration Magnesium Hydroxide 30 ml 06/07/20 00:59 Magnesium Hydroxide (Mom) Oral Liqd Udc PO Q4H PRN Constipation Morphine Sulfate 2 mg 06/07/20 00:59 06/10/20 03:55 Morphine 2 Mg/1 Ml Inj IV 2 mg Q4H PRN Administration Pain , Severe (7-10) Ondansetron HCl 4 mg 06/07/20 00:59 06/09/20 12:44 Ondansetron 4 Mg/2 Ml Inj IV 4 mg Q8H PRN Administration Nausea And Vomiting Pantoprazole Sodium 40 mg 06/07/20 10:00 06/09/20 12:57 Pantoprazole 40 Mg Tab PO Not Given DAILY GRIS Sodium Chloride 10 ml 06/07/20 10:00 06/09/20 21:25 Sodium Chloride 0.9% 10 Ml Flush Syringe IV 10 ml BID GRIS Administration Sodium Chloride 10 ml 06/07/20 00:59 Sodium Chloride 0.9% 10 Ml Flush Syringe IV PRN PRN LINE FLUSH Trazodone HCl 150 mg 06/07/20 01:52 06/08/20 20:50 Trazodone 50 Mg Tab PO 150 mg QHS PRN Administration Insomnia Nutrition/Malnutrition Assess - Dietary Evaluation Nutrition/Malnutrition Findings: Nutrition Notes Start: 06/07/20 14:33 Freq: Status: Active Protocol: Document 06/07/20 14:33 AL (Rec: 06/07/20 14:42 AL [id number]) Co-Sign 06/07/20 14:33 LP Nutrition Notes Need for Assessment generated from: MD Order,Education Initial or Follow up Assessment Current Diagnosis Diabetes,Sepsis,Hypertension, Hyperlipidemia Other Pertinent Diagnosis UTI, HIV Current Diet Cardiac/Consistent CHO Labs/Tests Na 131 BUN 21 Cr 1.3 BG 343 Pertinent Medications Humalog Height 5 ft 3 in Weight 107.3 kg [place] Body Weight (kg) 52.27 BMI 41.9 Weight change and time frame wt change noted Weight Status Morbidly Obese Subjective/Other Information MD consult for diet education. Diet education conducted on Heart Healthy diet, N/V, and CHO counting. Pt tired and lethargic, but still alert. Diet education well accepted. Pt tolerates current diet at 100%. Burn Absent Trauma Absent GI Symptoms Nausea,Vomiting Current % PO Fair (50-74%) Minimum of two criteria No #1 Nutrition Diagnosis Food and nutrition-related knowledge deficit Etiology DM, HLD, HTN, N/V As Evidenced by Signs and Symptoms Pt had not received diet education before. Is patient on ventilator? No Is Patient Ambulatory and/or Out of Bed Yes REE-([place]-ambulatory/OOB) [ 2232.269 NUTR.MSJOOB] Kcal/Kg value to use for calculation 16 Approximate Energy Requirements Using 1717 kcal/Kg Calculation Used for Recommendations Kcal/kg Additional Notes Protein: 63-80 g (.8-1.0 g/kg AdBW 80 kg) Fluid: 1 ml/kcal Nutrition Intervention Change Diet Order: Continue Current diet Teaching Recipient Patient Learning Readiness Good Teaching Methods Discussion,Handout Response to Teaching Verbalize understanding Education Handouts Provided Heart Healthy Consistent Carbohydrate Nutrition Therapy Barriers to Learning No Barriers RD phone number provided Yes Patient aware of follow up options Yes Goal #1 Meet 75% of estimated energy and protein needs PO Revisit per MD consult or patient Sign Off request:
[2020-06-10] MEDS: INSULIN GLARGINE 100 UNITS/ML SUB-Q SCH (09:52)
[2020-06-10] MEDS: CEFEPIME/NS 2 GM/100 ML 2 GM/100 ML BAG IV SCH ×2 (10:00→21:08)
[2020-06-10] MEDS: DOLUTEGRAVIR 50 MG TAB PO SCH (10:16)
[2020-06-10] MEDS: ABACAVIR 300 MG TAB PO SCH (10:18)
[2020-06-10] MEDS: PANTOPRAZOLE 40 MG TAB PO SCH (10:19)
[2020-06-10] MEDS: ARIPiprazole 15 MG TAB PO SCH (10:19)
[2020-06-10] MEDS: buPROPion XL 150 MG TAB PO SCH (10:25)
[2020-06-10] MEDS: VANCOMYCIN 1,500 MG in SODIUM CHLORIDE 0.9% 500 ML 500 ML IV SCH ×2 (12:56→23:38)
--- NOTE | 2020-06-10 14:09 | Progress Note ---
Assessment and Plan 40 yo F s/p I&D, debridement of right gluteal abscess, POD 1 Pt stable. Fevers continue. Hb A1C 12.3 Gluteal abscess culture - group B beta hemolytic strep Plan: 1. continue abx per ID 2. daily would care - orders written 3. glucose control - will need optimization of insulin regimen as outpatient as HbA1C is 12.3 4. Hibiclens showers/sitz baths daily 5. prn pain control 6. HHC ordered 7. warm compresses to labia 8. Patient to follow up in wound care clinic upon dc. Will ask superintendent marine to make patient an appointment. Will s/o Thank you, please call with questions. Subjective Date of service: 06/10/20 Narrative: Pt seen and examined. C/o pain near surgical site and right labia swelling. Tm 102.1 Objective Vital Signs - 12hr 06/10/20 06/10/20 05:15 10:44 Temperature 100.8 F H 102.1 F H Pulse Rate 101 H 110 H Respiratory 20 20 Rate Blood Pressure 163/80 185/84 O2 Sat by Pulse 92 99 Oximetry - General physical appearance Narrative Exam: RN present in room during exam: Gen: AAOx3. NAD CV: s1, S2+ Resp: even and unlabored Gluteal: 1 piece of packing removed. Wound clean without drainage - packed with 1 piece of mesalt. Covered with 4x4 gauze. Periwound is clean without fluctuance or erythema, only mild induration at wound edges : swelling of left labia with cellulitis. No fluctuance appreciated on exam - Labs 06/10/20 05:05 06/10/20 05:05 Diabetes panel 06/10/20 Range/Units 05:05 Sodium 135 L (137-145) mmol/L Potassium 4.0 (3.6-5.0) mmol/L Chloride 105.0 (98-107) mmol/L Carbon Dioxide 21 L (22-30) mmol/L BUN 15 (7-17) mg/dL Creatinine 1.1 (0.6-1.2) mg/dL Glucose 192 H (65-100) mg/dL Calcium 8.6 (8.4-10.2) mg/dL Calcium panel 06/10/20 Range/Units 05:05 Calcium 8.6 (8.4-10.2) mg/dL Pituitary panel 06/10/20 Range/Units 05:05 Sodium 135 L (137-145) mmol/L Potassium 4.0 (3.6-5.0) mmol/L Chloride 105.0 (98-107) mmol/L Carbon Dioxide 21 L (22-30) mmol/L BUN 15 (7-17) mg/dL Creatinine 1.1 (0.6-1.2) mg/dL Glucose 192 H (65-100) mg/dL Calcium 8.6 (8.4-10.2) mg/dL Adrenal panel 06/10/20 Range/Units 05:05 Sodium 135 L (137-145) mmol/L Potassium 4.0 (3.6-5.0) mmol/L Chloride 105.0 (98-107) mmol/L Carbon Dioxide 21 L (22-30) mmol/L BUN 15 (7-17) mg/dL Creatinine 1.1 (0.6-1.2) mg/dL Glucose 192 H (65-100) mg/dL Calcium 8.6 (8.4-10.2) mg/dL
[2020-06-10] MEDS ORDERED: HYDROmorphone 1 MG/1 ML INJ IV SCH (14:30)
[2020-06-10] MEDS: METOCLOPRAMIDE 10 MG/2 ML INJ IV PRN ×2 (15:05→22:01)
[2020-06-10] MEDS: ACETAMINOPHEN 325 MG TAB PO PRN (22:01)
[2020-06-11] MEDS: MORPHINE 2 MG/1 ML INJ IV PRN ×4 (03:36→21:05)
[2020-06-11] MEDS: HEPARIN 5,000 UNIT/1 ML VIAL SUB-Q SCH ×3 (05:54→21:06)
[2020-06-11] MEDS: ACETAMINOPHEN 325 MG TAB PO PRN ×2 (05:55→13:06)
[2020-06-11 06:22] LABS: Basophils % (Auto) 0.2 % (0.0-1.8); Eosinophils % (Auto) 0.4 % (0.0-4.3); Hematocrit 27.6 % (30.3-42.9); Hemoglobin 9.5 gm/dl (10.1-14.3); Lymphocytes # (Auto) 1.2 K/mm3 (1.2-5.4); Lymphocytes % (Auto) 10.6 % (13.4-35.0); Mean Corpuscular HGB Conc 34 % (30-34); Mean Corpuscular Volume 99 fl (79-97); Monocytes # (Auto) 1.3 K/mm3 (0.0-0.8); Monocytes % (Auto) 11.1 % (0.0-7.3); Platelet Count 139 K/mm3 (140-440); Red Blood Count 2.79 M/mm3 (3.65-5.03); Red Cell Distribution Width 13.8 % (13.2-15.2)
[2020-06-11 06:44] LABS: BUN/Creatinine Ratio 12; Blood Urea Nitrogen 12 mg/dL (7-17); Calcium 8.1 mg/dL (8.4-10.2); Hemolysis Index 29
--- NOTE | 2020-06-11 08:00 | Progress Note ---
Assessment and Plan Assessment and plan: UTI. Right gluteal abscess/cellulitis. Sepsis. Etiology secondary to above. Diabetes mellitus type 2. Hypertension Left renal calculus. 06/08/2020. Continue antibiotics of Rocephin and vancomycin. ID consultation pending. Continue to monitor temperature curve. Follow-up blood and urine cultures. Continue Lantus, SSRI and Accu-Cheks. 06/09/2020. Continue antibiotics per ID recommendations. Surgery evaluated the patient and recommends incision and drainage of left gluteal abscess in OR toda y. Continue tight glycemic control. Increase Lantus to 35 units. 06/10/2020. Patient is s/p Incision and drainage, excisional debridement of right gluteal abscess. Surgery found 5 cm abscess cavity of the right gluteal cleft. Follow-up blood and wound cultures. Continue antibiotics per ID recom mendations. Tight glycemic control. Continue Lantus 35 units. 06/11/2020. Patient is POD#2 for Incision and drainage, excisional debridement of right gluteal abscess. Surgery found 5 cm abscess cavity of the right gluteal cleft. Continue IV antibiotics per ID recommendations. Tight glycemic control. Urine culture negative. Blood cultures negative x4 days. Patient still with significant fever. Patient with [place] and morphine for pain History Interval history: No new issues overnight. Patient with status post I&D/excisional debridement of right gluteal abscess Hospitalist Physical - Constitutional Vitals: Temp Pulse Resp BP Pulse Ox 101.1 F H 107 H 20 164/77 94 06/11/20 05:31 06/11/20 05:31 06/11/20 05:31 06/11/20 05:31 06/11/20 05:31 General appearance: Present: no acute distress, well-nourished - EENT Eyes: Present: PERRL, EOM intact ENT: hearing intact, clear oral mucosa, dentition normal - Neck Neck: Present: supple, normal ROM - Respiratory Respiratory effort: normal Respiratory: bilateral: CTA - Cardiovascular Rhythm: regular Heart Sounds: Present: S1 & S2. Absent: gallop, rub - Extremities Extremities: no ischemia, No edema, Full ROM - Abdominal General gastrointestinal: soft, non-tender, non-distended, normal bowel sounds - Integumentary Integumentary: Present: clear, warm, dry - Neurologic Neurologic: CNII-XII intact, moves all extremities Results - Labs CBC & Chem 7: 06/11/20 05:38 06/11/20 05:38 Labs: Laboratory Last Values WBC 11.4 K/mm3 (4.5-11.0) H 06/11/20 05:38 RBC 2.79 M/mm3 (3.65-5.03) L 06/11/20 05:38 Hgb 9.5 gm/dl (10.1-14.3) L 06/11/20 05:38 Hct 27.6 % (30.3-42.9) L 06/11/20 05:38 MCV 99 fl (79-97) H 06/11/20 05:38 MCH 34 pg (28-32) H 06/11/20 05:38 MCHC 34 % (30-34) 06/11/20 05:38 RDW 13.8 % (13.2-15.2) 06/11/20 05:38 Plt Count 139 K/mm3 (140-440) L 06/11/20 05:38 Lymph % (Auto) 10.6 % (13.4-35.0) L 06/11/20 05:38 [place] % (Auto) 11.1 % (0.0-7.3) H 06/11/20 05:38 Eos % (Auto) 0.4 % (0.0-4.3) 06/11/20 05:38 Baso % (Auto) 0.2 % (0.0-1.8) 06/11/20 05:38 Lymph # (Auto) 1.2 K/mm3 (1.2-5.4) 06/11/20 05:38 [place] # (Auto) 1.3 K/mm3 (0.0-0.8) H 06/11/20 05:38 Eos # (Auto) 0.0 K/mm3 (0.0-0.4) 06/11/20 05:38 Baso # (Auto) 0.0 K/mm3 (0.0-0.1) 06/11/20 05:38 Seg Neutrophils % 77.7 % (40.0-70.0) H 06/11/20 05:38 Seg Neutrophils # 8.8 K/mm3 (1.8-7.7) H 06/11/20 05:38 PT 12.9 Sec. (12.2-14.9) 06/08/20 04:00 INR 0.99 (0.87-1.13) 06/08/20 04:00 Sodium 136 mmol/L (137-145) L 06/11/20 05:38 Potassium 4.0 mmol/L (3.6-5.0) 06/11/20 05:38 Chloride 105.4 mmol/L (98-107) 06/11/20 05:38 Carbon Dioxide 20 mmol/L (22-30) L 06/11/20 05:38 Anion Gap 15 mmol/L 06/11/20 05:38 BUN 12 mg/dL (7-17) 06/11/20 05:38 Creatinine 1.0 mg/dL (0.6-1.2) 06/11/20 05:38 Estimated GFR > 60 ml/min 06/11/20 05:38 BUN/Creatinine Ratio 12 % 06/11/20 05:38 Glucose 233 mg/dL (65-100) H 06/11/20 05:38 POC Glucose 201 mg/dL (70-105) H 06/11/20 07:33 Hemoglobin A1c 12.0 % (4-6) H 06/09/20 04:43 Lactic Acid 1.70 mmol/L (0.7-2.0) 06/06/20 22:34 Calcium 8.1 mg/dL (8.4-10.2) L 06/11/20 05:38 Total Bilirubin 0.50 mg/dL (0.1-1.2) 06/06/20 19:59 AST 15 units/L (5-40) 06/06/20 19:59 ALT 29 units/L (7-56) 06/06/20 19:59 Alkaline Phosphatase 115 units/L (35-129) 06/06/20 19:59 Total Protein 6.6 g/dL (6.3-8.2) 06/06/20 19:59 Albumin 3.7 g/dL (3.9-5) L 06/06/20 19:59 Albumin/Globulin Ratio 1.3 % 06/06/20 19:59 HCG, Qual Negative (Negative) 06/06/20 23:19 Urine Color Yellow (Yellow) 06/06/20 Unknown Urine Turbidity Slightly-cloudy (Clear) 06/06/20 Unknown Urine pH 5.0 (5.0-7.0) 06/06/20 Unknown Ur Specific [place] 1.023 (1.003-1.030) 06/06/20 Unknown Urine Protein >500 mg/dL (Negative) 06/06/20 Unknown Urine Glucose (UA) >=500 mg/dL (Negative) 06/06/20 Unknown Urine Ketones Neg mg/dL (Negative) 06/06/20 Unknown Urine Blood Sm (Negative) 06/06/20 Unknown Urine Nitrite Neg (Negative) 06/06/20 Unknown Urine Bilirubin Neg (Negative) 06/06/20 Unknown Urine Urobilinogen < 2.0 mg/dL (<2.0) 06/06/20 Unknown Ur Leukocyte Esterase Neg (Negative) 06/06/20 Unknown Urine WBC (Auto) 16.0 /HPF (0.0-6.0) H 06/06/20 Unknown Urine RBC (Auto) 8.0 /HPF (0.0-6.0) 06/06/20 Unknown U Epithel Cells (Auto) 5.0 /HPF (0-13.0) 06/06/20 Unknown Urine Bacteria (Auto) 1+ /HPF (Negative) 06/06/20 Unknown Urine Mucus Few /HPF 06/06/20 Unknown Vancomycin Trough 19.9 ug/mL (5.0-20.0) 06/10/20 20:33 Microbiology: Microbiology 06/06/20 19:59 Peripheral/Venous Blood Culture - Preliminary NO GROWTH AFTER 4 DAYS 06/06/20 19:59 Peripheral/Venous Blood Culture - Preliminary NO GROWTH AFTER 4 DAYS 06/09/20 Unknown Buttock Surgical Culture - Final Beta Hemolytic Strep Group B [place]/IV: Voiding Method Toilet Active Medications - Current Medications Current Medications: Generic Name Dose Route Start Last Admin Trade Name Freq PRN Reason Stop Dose Admin Abacavir Sulfate 600 mg 06/07/20 10:00 06/10/20 10:18 Abacavir 300 Mg Tab PO 600 mg DAILY GRIS Administration Acetaminophen 650 mg 06/07/20 00:59 06/11/20 05:55 Acetaminophen 325 Mg Tab PO 650 mg Q4H PRN Administration Pain MILD(1-3)/Fever >100.5/[place] Hydrocodone Bitart/Acetaminophen 1 each 06/09/20 11:00 06/09/20 20:29 Hydrocodone/Acetaminophen 5-325 Mg Tab PO 1 each Q4H PRN Administration Pain, Moderate (4-6) Aripiprazole 15 mg 06/07/20 10:00 06/10/20 10:19 Aripiprazole 15 Mg Tab PO Not Given QDAY GRIS Bupropion HCl 150 mg 06/07/20 10:00 06/10/20 10:25 Bupropion Xl 150 Mg Tab PO Not Given QDAY GRIS Dextrose 50 ml 06/07/20 00:59 Dextrose 50% In Water (25gm) 50 Ml Syringe IV Q30MIN PRN Hypoglycemia Protocol Diphenhydramine HCl 25 mg 06/07/20 08:16 06/10/20 22:01 Diphenhydramine 50 Mg/Ml Vial IV 25 mg Q6H PRN Administration Itching Heparin Sodium (Porcine) 5,000 unit 06/07/20 06:00 06/11/20 05:54 Heparin 5,000 Unit/1 Ml Vial SUB-Q 5,000 unit Q8HR GRIS Administration Sodium Chloride 1,000 mls @ 125 mls/hr 06/07/20 01:00 06/10/20 21:09 Nacl 0.9% 1000 Ml IV 125 mls/hr DIRECT GRIS Administration Cefepime HCl 2 gm in 100 mls @ 200 mls/hr 06/08/20 12:00 06/10/20 21:08 Cefepime/Ns 2 Gm/100 Ml IV 200 mls/hr Q12HR GRIS Administration Protocol Vancomycin HCl 1,500 mg/ 530 mls @ 333.333 mls/hr 06/10/20 22:00 06/10/20 23:38 Sodium Chloride IV 333.333 mls/hr Q12HR GRIS Administration Insulin Glargine 35 units 06/09/20 10:00 06/10/20 09:52 Insulin Glargine 100 Units/Ml SUB-Q 35 units QAM GRIS Administration Insulin Human Lispro 0 unit 06/07/20 07:30 06/10/20 23:00 Insulin Lispro 100 Unit/Ml SUB-Q Not Given [facility] Protocol Insulin Human Lispro 8 unit 06/07/20 11:30 06/10/20 23:00 Insulin Lispro 100 Unit/Ml SUB-Q Not Given [facility] Lamivudine 300 mg 06/07/20 10:00 06/10/20 10:18 Lamivudine 150 Mg Tab PO 300 mg DAILY GRIS Administration Magnesium Hydroxide 30 ml 06/07/20 00:59 Magnesium Hydroxide (Mom) Oral Liqd Udc PO Q4H PRN Constipation Metoclopramide HCl 5 mg 06/10/20 14:24 06/10/20 22:01 Metoclopramide 10 Mg/2 Ml Inj IV 5 mg ACHS PRN Administration Nausea Morphine Sulfate 2 mg 06/07/20 00:59 06/11/20 03:36 Morphine 2 Mg/1 Ml Inj IV 2 mg Q4H PRN Administration Pain , Severe (7-10) Ondansetron HCl 4 mg 06/07/20 00:59 06/09/20 12:44 Ondansetron 4 Mg/2 Ml Inj IV 4 mg Q8H PRN Administration Nausea And Vomiting Pantoprazole Sodium 40 mg 06/07/20 10:00 06/10/20 10:19 Pantoprazole 40 Mg Tab PO 40 mg DAILY GRIS Administration Sodium Chloride 10 ml 06/07/20 10:00 06/10/20 21:09 Sodium Chloride 0.9% 10 Ml Flush Syringe IV 10 ml BID GRIS Administration Sodium Chloride 10 ml 06/07/20 00:59 Sodium Chloride 0.9% 10 Ml Flush Syringe IV PRN PRN LINE FLUSH Trazodone HCl 150 mg 06/07/20 01:52 06/08/20 20:50 Trazodone 50 Mg Tab PO 150 mg QHS PRN Administration Insomnia Nutrition/Malnutrition Assess - Dietary Evaluation Nutrition/Malnutrition Findings: Nutrition Notes Start: 06/07/20 14:33 Freq: Status: Active Protocol: Document 06/07/20 14:33 AL (Rec: 06/07/20 14:42 AL [id number]) Co-Sign 06/07/20 14:33 LP Nutrition Notes Need for Assessment generated from: MD Order,Education Initial or Follow up Assessment Current Diagnosis Diabetes,Sepsis,Hypertension, Hyperlipidemia Other Pertinent Diagnosis UTI, HIV Current Diet Cardiac/Consistent CHO Labs/Tests Na 131 BUN 21 Cr 1.3 BG 343 Pertinent Medications Humalog Height 5 ft 3 in Weight 107.3 kg [place] Body Weight (kg) 52.27 BMI 41.9 Weight change and time frame wt change noted Weight Status Morbidly Obese Subjective/Other Information MD consult for diet education. Diet education conducted on Heart Healthy diet, N/V, and CHO counting. Pt tired and lethargic, but still alert. Diet education well accepted. Pt tolerates current diet at 100%. Burn Absent Trauma Absent GI Symptoms Nausea,Vomiting Current % PO Fair (50-74%) Minimum of two criteria No #1 Nutrition Diagnosis Food and nutrition-related knowledge deficit Etiology DM, HLD, HTN, N/V As Evidenced by Signs and Symptoms Pt had not received diet education before. Is patient on ventilator? No Is Patient Ambulatory and/or Out of Bed Yes REE-([facility]-ambulatory/OOB) [ 2232.269 [id number]] Kcal/Kg value to use for calculation 16 Approximate Energy Requirements Using 1717 kcal/Kg Calculation Used for Recommendations Kcal/kg Additional Notes Protein: 63-80 g (.8-1.0 g/kg AdBW 80 kg) Fluid: 1 ml/kcal Nutrition Intervention Change Diet Order: Continue Current diet Teaching Recipient Patient Learning Readiness Good Teaching Methods Discussion,Handout Response to Teaching Verbalize understanding Education Handouts Provided Heart Healthy Consistent Carbohydrate Nutrition Therapy Barriers to Learning No Barriers RD phone number provided Yes Patient aware of follow up options Yes Goal #1 Meet 75% of estimated energy and protein needs PO Revisit per MD consult or patient Sign Off request:
[2020-06-11] MEDS: SODIUM CHLORIDE 0.9% 1000 ML 1,000 ML IV SCH ×2 (08:22→23:21)
[2020-06-11] MEDS: INSULIN LISPRO 100 UNIT/ML SUB-Q SCH ×8 (09:16→23:50)
[2020-06-11] MEDS: INSULIN GLARGINE 100 UNITS/ML SUB-Q SCH (09:18)
[2020-06-11] MEDS: DOLUTEGRAVIR 50 MG TAB PO SCH (10:43)
[2020-06-11] MEDS: PANTOPRAZOLE 40 MG TAB PO SCH (10:43)
[2020-06-11] MEDS: CEFEPIME/NS 2 GM/100 ML 2 GM/100 ML BAG IV SCH (10:43)
[2020-06-11] MEDS: buPROPion XL 150 MG TAB PO SCH (10:43)
[2020-06-11] MEDS: ARIPiprazole 15 MG TAB PO SCH (10:45)
[2020-06-11] MEDS: ABACAVIR 300 MG TAB PO SCH (10:46)
[2020-06-11] MEDS: diphenhydrAMINE 50 MG/ML VIAL IV PRN ×3 (10:54→23:20)
[2020-06-11] MEDS: METOCLOPRAMIDE 10 MG/2 ML INJ IV PRN ×2 (10:55→23:20)
[2020-06-11] MEDS: VANCOMYCIN 1,500 MG in SODIUM CHLORIDE 0.9% 500 ML 500 ML IV SCH (12:04)
[2020-06-11] MEDS ORDERED: MORPHINE 2 MG/1 ML INJ IM ONE (12:35)
--- NOTE | 2020-06-11 12:55 | Progress Note ---
Assessment and Plan Cultures: 06/06/2020 blood culture: No growth 06/06/2020 urine culture: Mixed tash 06/09/2020 buttock culture: Group B streptococcus A/P: 40-year-old female with diabetes, hypertension, noncompliance was admitted to the emergency room after she came in due to bilateral flank pain and suprapubic pain: #Sepsis, likely secondary to urinary tract infection/pyelonephritis given flank pain and also left gluteal abscess #Left gluteal cellulitis with abscess: Has had previous surgeries. Known to Dr. Dalal, status post I&D of her left buttock on 06/09/2020. #Diabetes mellitus, type II: Uncontrolled #SYLWIA: renally dose abx. Improved. #HIV, follows up with Dr. Ponce. Is on Triumeq, reports excellent compliance, reports undetectable viral load. Last CD4 count in our system is 314 in September 2017. Recs: -Antibiotics streamlined to IV Ancef plus clindamycin -Continue p.o. Triumeq -Monitor fever -Wound care per surgery recommendations -Fluconazole added for yeast vaginitis as per patient Estrella Dukes MD, FACP [facility] O: [phone] F: [phone] Subjective Date of service: 06/11/20 Interval history: Pt with ongoing fever. Continues to have pain in the buttock and groin region. She is status post I&D of her left buttock on 06/09/2020. Objective - Exam Narrative Exam: Physical Exam: Constitutional: Alert, cooperative. No acute distress Head, Ears, Nose: Normocephalic, atraumatic. External ears, nose normal Eyes: Conjunctivae/corneas clear. No icterus. No ptosis. Neck: Supple, no meningeal signs Cardiovascular: S1, S2 normal. Respiratory: Good air entry, clear to auscultation bilaterally GI: Soft, non-tender; bowel sounds normal. No peritoneal signs mild suprapubic and CVA tenderness Musculoskeletal: No pedal edema, no cyanosis. Groin exam deferred Skin: No rash or abscess Hem/Lymphatic: No palpable cervical or supraclavicular nodes. No lymphangitis Psych: Mood ok. Affect normal Neurological: Awake, alert, oriented. No gross abnormality - Constitutional Vitals: Vital Signs Temp Pulse Resp BP Pulse Ox 99.1 F 96 H 16 147/78 95 06/11/20 07:00 06/11/20 08:24 06/11/20 08:24 06/11/20 08:24 06/11/20 08:24 Temperature -Last 24 Hours Temperature 99.1 F Temperature 101.1 F Temperature 101.1 F Temperature 100.3 F Temperature 102.2 F Temperature 101.2 F - Labs CBC & Chem 7: 06/11/20 05:38 06/11/20 05:38 Labs: Abnormal lab results 06/10/20 06/10/20 06/11/20 Range/Units 16:58 21:42 05:38 WBC 11.4 H (4.5-11.0) K/mm3 RBC 2.79 L (3.65-5.03) M/mm3 Hgb 9.5 L (10.1-14.3) gm/dl Hct 27.6 L (30.3-42.9) % MCV 99 H (79-97) fl MCH 34 H (28-32) pg Plt Count 139 L (140-440) K/mm3 Lymph % (Auto) 10.6 L (13.4-35.0) % [place] % (Auto) 11.1 H (0.0-7.3) % [place] # (Auto) 1.3 H (0.0-0.8) K/mm3 Seg Neutrophils % 77.7 H (40.0-70.0) % Seg Neutrophils # 8.8 H (1.8-7.7) K/mm3 Sodium (137-145) mmol/L Carbon Dioxide (22-30) mmol/L Glucose (65-100) mg/dL POC Glucose 146 H 157 H (70-105) mg/dL Calcium (8.4-10.2) mg/dL 06/11/20 06/11/20 Range/Units 05:38 07:33 WBC (4.5-11.0) K/mm3 RBC (3.65-5.03) M/mm3 Hgb (10.1-14.3) gm/dl Hct (30.3-42.9) % MCV (79-97) fl MCH (28-32) pg Plt Count (140-440) K/mm3 Lymph % (Auto) (13.4-35.0) % [place] % (Auto) (0.0-7.3) % [place] # (Auto) (0.0-0.8) K/mm3 Seg Neutrophils % (40.0-70.0) % Seg Neutrophils # (1.8-7.7) K/mm3 Sodium 136 L (137-145) mmol/L Carbon Dioxide 20 L (22-30) mmol/L Glucose 233 H (65-100) mg/dL POC Glucose 201 H (70-105) mg/dL Calcium 8.1 L (8.4-10.2) mg/dL
[2020-06-11] MEDS: FLUCONAZOLE 200 MG 200 MG/100 ML BAG IV SCH (16:54)
[2020-06-11] MEDS: traZODone 50 MG TAB PO PRN (23:35)
[2020-06-12] MEDS: ACETAMINOPHEN 325 MG TAB PO PRN (00:07)
[2020-06-12] MEDS: MORPHINE 2 MG/1 ML INJ IV PRN ×6 (01:58→23:08)
[2020-06-12] MEDS: diphenhydrAMINE 50 MG/ML VIAL IV PRN ×3 (06:06→23:07)
[2020-06-12] MEDS: HEPARIN 5,000 UNIT/1 ML VIAL SUB-Q SCH ×4 (06:08→22:53)
[2020-06-12] MEDS: ONDANSETRON 4 MG/2 ML INJ IV PRN (06:31)
--- NOTE | 2020-06-12 07:58 | Progress Note ---
Assessment and Plan Assessment and plan: UTI. Right gluteal abscess/cellulitis. Sepsis. Etiology secondary to above. Diabetes mellitus type 2. Hypertension Left renal calculus. 06/08/2020. Continue antibiotics of Rocephin and vancomycin. ID consultation pending. Continue to monitor temperature curve. Follow-up blood and urine cultures. Continue Lantus, SSRI and Accu-Cheks. 06/09/2020. Continue antibiotics per ID recommendations. Surgery evaluated the patient and recommends incision and drainage of left gluteal abscess in OR toda y. Continue tight glycemic control. Increase Lantus to 35 units. 06/10/2020. Patient is s/p Incision and drainage, excisional debridement of right gluteal abscess. Surgery found 5 cm abscess cavity of the right gluteal cleft. Follow-up blood and wound cultures. Continue antibiotics per ID recom mendations. Tight glycemic control. Continue Lantus 35 units. 06/11/2020. Patient is POD#2 for Incision and drainage, excisional debridement of right gluteal abscess. Surgery found 5 cm abscess cavity of the right gluteal cleft. Continue IV antibiotics per ID recommendations. Tight glycemic control. Urine culture negative. Blood cultures negative x4 days. Patient still with significant fever. Patient with [place] and morphine for pain 06/12/2020; day 3 status post excisional debridement of right gluteal abscess. Surgery found 5 cm abscess cavity of the right gluteal cleft. Continue IV a ntibiotics per ID recommendations. Tight glycemic control. Urine culture negative. Blood cultures negative x4 days. Patient still with significant fever. Patient with [place] and morphine for pain. Continue inpatient care. There is significant swelling and tenderness of the labia majora and surrounding areas. Patient is followed by general surgery and will get in touch with Dr. simpson. History Interval history: Patient was seen and evaluated this morning Patient still had fever overnight Patient was complaining worsening of swelling, extending to the labia majora and very tender Hospitalist Physical - Physical exam Narrative exam: Not in cardiopulmonary distress. The patient is morbidly obese. Vital signs as documented. Head exam is unremarkable. No scleral icterus . Neck is without jugular venous distension, thyromegaly, or carotid bruits. Lungs are clear to auscultation. Cardiac exam reveals regular rate and Rhythm. Abdominal exam reveals normal bowel sounds, nontender, no organomegaly. Extremities are nonedematous and both femoral and pedal pulses are normal. STREET [employer]: Alert and oriented 3. No focal weakness. Sacral decubitus ulcer. Worsening of swelling in the perineal and vaginal area. Significant swelling and tenderness of the labia majora. - Constitutional Vitals: Temp Pulse Resp BP Pulse Ox 100.4 F H 104 H 18 160/79 90 06/12/20 06:20 06/12/20 06:20 06/12/20 06:37 06/12/20 06:20 06/12/20 06:20 General appearance: Present: no acute distress, well-nourished Results - Labs CBC & Chem 7: 06/11/20 05:38 06/11/20 05:38 Labs: Laboratory Last Values WBC 11.4 K/mm3 (4.5-11.0) H 06/11/20 05:38 RBC 2.79 M/mm3 (3.65-5.03) L 06/11/20 05:38 Hgb 9.5 gm/dl (10.1-14.3) L 06/11/20 05:38 Hct 27.6 % (30.3-42.9) L 06/11/20 05:38 MCV 99 fl (79-97) H 06/11/20 05:38 MCH 34 pg (28-32) H 06/11/20 05:38 MCHC 34 % (30-34) 06/11/20 05:38 RDW 13.8 % (13.2-15.2) 06/11/20 05:38 Plt Count 139 K/mm3 (140-440) L 06/11/20 05:38 Lymph % (Auto) 10.6 % (13.4-35.0) L 06/11/20 05:38 [place] % (Auto) 11.1 % (0.0-7.3) H 06/11/20 05:38 Eos % (Auto) 0.4 % (0.0-4.3) 06/11/20 05:38 Baso % (Auto) 0.2 % (0.0-1.8) 06/11/20 05:38 Lymph # (Auto) 1.2 K/mm3 (1.2-5.4) 06/11/20 05:38 [place] # (Auto) 1.3 K/mm3 (0.0-0.8) H 06/11/20 05:38 Eos # (Auto) 0.0 K/mm3 (0.0-0.4) 06/11/20 05:38 Baso # (Auto) 0.0 K/mm3 (0.0-0.1) 06/11/20 05:38 Seg Neutrophils % 77.7 % (40.0-70.0) H 06/11/20 05:38 Seg Neutrophils # 8.8 K/mm3 (1.8-7.7) H 06/11/20 05:38 PT 12.9 Sec. (12.2-14.9) 06/08/20 04:00 INR 0.99 (0.87-1.13) 06/08/20 04:00 Sodium 136 mmol/L (137-145) L 06/11/20 05:38 Potassium 4.0 mmol/L (3.6-5.0) 06/11/20 05:38 Chloride 105.4 mmol/L (98-107) 06/11/20 05:38 Carbon Dioxide 20 mmol/L (22-30) L 06/11/20 05:38 Anion Gap 15 mmol/L 06/11/20 05:38 BUN 12 mg/dL (7-17) 06/11/20 05:38 Creatinine 1.0 mg/dL (0.6-1.2) 06/11/20 05:38 Estimated GFR > 60 ml/min 06/11/20 05:38 BUN/Creatinine Ratio 12 % 06/11/20 05:38 Glucose 233 mg/dL (65-100) H 06/11/20 05:38 POC Glucose 149 mg/dL (70-105) H 06/11/20 23:36 Hemoglobin A1c 12.0 % (4-6) H 06/09/20 04:43 Lactic Acid 1.70 mmol/L (0.7-2.0) 06/06/20 22:34 Calcium 8.1 mg/dL (8.4-10.2) L 06/11/20 05:38 Total Bilirubin 0.50 mg/dL (0.1-1.2) 06/06/20 19:59 AST 15 units/L (5-40) 06/06/20 19:59 ALT 29 units/L (7-56) 06/06/20 19:59 Alkaline Phosphatase 115 units/L (35-129) 06/06/20 19:59 Total Protein 6.6 g/dL (6.3-8.2) 06/06/20 19:59 Albumin 3.7 g/dL (3.9-5) L 06/06/20 19:59 Albumin/Globulin Ratio 1.3 % 06/06/20 19:59 HCG, Qual Negative (Negative) 06/06/20 23:19 Urine Color Yellow (Yellow) 06/06/20 Unknown Urine Turbidity Slightly-cloudy (Clear) 06/06/20 Unknown Urine pH 5.0 (5.0-7.0) 06/06/20 Unknown Ur Specific [place] 1.023 (1.003-1.030) 06/06/20 Unknown Urine Protein >500 mg/dL (Negative) 06/06/20 Unknown Urine Glucose (UA) >=500 mg/dL (Negative) 06/06/20 Unknown Urine Ketones Neg mg/dL (Negative) 06/06/20 Unknown Urine Blood Sm (Negative) 06/06/20 Unknown Urine Nitrite Neg (Negative) 06/06/20 Unknown Urine Bilirubin Neg (Negative) 06/06/20 Unknown Urine Urobilinogen < 2.0 mg/dL (<2.0) 06/06/20 Unknown Ur Leukocyte Esterase Neg (Negative) 06/06/20 Unknown Urine WBC (Auto) 16.0 /HPF (0.0-6.0) H 06/06/20 Unknown Urine RBC (Auto) 8.0 /HPF (0.0-6.0) 06/06/20 Unknown U Epithel Cells (Auto) 5.0 /HPF (0-13.0) 06/06/20 Unknown Urine Bacteria (Auto) 1+ /HPF (Negative) 06/06/20 Unknown Urine Mucus Few /HPF 06/06/20 Unknown Vancomycin Trough 19.9 ug/mL (5.0-20.0) 06/10/20 20:33 Microbiology: Microbiology 06/06/20 19:59 Peripheral/Venous Blood Culture - Final NO GROWTH AFTER 5 DAYS 06/06/20 19:59 Peripheral/Venous Blood Culture - Final NO GROWTH AFTER 5 DAYS 06/09/20 Unknown Buttock Anaerobic Culture - Preliminary [place]/IV: Voiding Method Toilet Active Medications - Current Medications Current Medications: Generic Name Dose Route Start Last Admin Trade Name Freq PRN Reason Stop Dose Admin Abacavir Sulfate 600 mg 06/07/20 10:00 06/11/20 10:46 Abacavir 300 Mg Tab PO Not Given DAILY GRIS Acetaminophen 650 mg 06/07/20 00:59 06/12/20 00:07 Acetaminophen 325 Mg Tab PO 650 mg Q4H PRN Administration Pain MILD(1-3)/Fever >100.5/CHAVARRIA Hydrocodone Bitart/Acetaminophen 1 each 06/09/20 11:00 06/09/20 20:29 Hydrocodone/Acetaminophen 5-325 Mg Tab PO 1 each Q4H PRN Administration Pain, Moderate (4-6) Aripiprazole 15 mg 06/07/20 10:00 06/11/20 10:45 Aripiprazole 15 Mg Tab PO Not Given QDAY GRIS Bupropion HCl 150 mg 06/07/20 10:00 06/11/20 10:43 Bupropion Xl 150 Mg Tab PO Not Given QDAY GRIS Dextrose 50 ml 06/07/20 00:59 Dextrose 50% In Water (25gm) 50 Ml Syringe IV Q30MIN PRN Hypoglycemia Protocol Diphenhydramine HCl 25 mg 06/07/20 08:16 06/12/20 06:06 Diphenhydramine 50 Mg/Ml Vial IV 25 mg Q6H PRN Administration Itching Heparin Sodium (Porcine) 5,000 unit 06/07/20 06:00 06/12/20 06:08 Heparin 5,000 Unit/1 Ml Vial SUB-Q 5,000 unit Q8HR GRIS Administration Sodium Chloride 1,000 mls @ 125 mls/hr 06/07/20 01:00 06/11/20 23:21 Nacl 0.9% 1000 Ml IV 125 mls/hr DIRECT GRIS Administration Fluconazole 200 mg in 100 mls @ 100 mls/hr 06/11/20 14:00 06/11/20 16:54 Diflucan IV 100 mls/hr Q24HR GRIS Administration Protocol Clindamycin HCl 900 mg in 50 mls @ 100 mls/hr 06/11/20 13:00 06/12/20 05:16 Cleocin 900 Mg/50 Ml IV 06/14/20 12:59 100 mls/hr Q8H GRIS Administration Protocol Cefazolin Sodium 2 gm/ Sodium 100 mls @ 200 mls/hr 06/11/20 14:00 06/12/20 06:08 Chloride IV 200 mls/hr Q8HR GRIS Administration Protocol Insulin Glargine 35 units 06/09/20 10:00 06/11/20 09:18 Insulin Glargine 100 Units/Ml SUB-Q 35 units QAM GRIS Administration Insulin Human Lispro 0 unit 06/07/20 07:30 06/11/20 23:50 Insulin Lispro 100 Unit/Ml SUB-Q Not Given ACHS [facility] Protocol Insulin Human Lispro 8 unit 06/07/20 11:30 06/11/20 23:50 Insulin Lispro 100 Unit/Ml SUB-Q Not Given A[facility]S [facility] Lamivudine 300 mg 06/07/20 10:00 06/11/20 10:43 Lamivudine 150 Mg Tab PO Not Given DAILY [facility] Magnesium Hydroxide 30 ml 06/07/20 00:59 Magnesium Hydroxide (Mom) Oral Liqd Udc PO Q4H PRN Constipation Metoclopramide HCl 5 mg 06/10/20 14:24 06/11/20 23:20 Metoclopramide 10 Mg/2 Ml Inj IV 5 mg ACHS PRN Administration Nausea Morphine Sulfate 2 mg 06/07/20 00:59 06/12/20 06:07 Morphine 2 Mg/1 Ml Inj IV 2 mg Q4H PRN Administration Pain , Severe (7-10) Ondansetron HCl 4 mg 06/07/20 00:59 06/09/20 12:44 Ondansetron 4 Mg/2 Ml Inj IV 4 mg Q8H PRN Administration Nausea And Vomiting Pantoprazole Sodium 40 mg 06/07/20 10:00 06/11/20 10:43 Pantoprazole 40 Mg Tab PO Not Given DAILY [facility] Sodium Chloride 10 ml 06/07/20 10:00 06/11/20 21:06 Sodium Chloride 0.9% 10 Ml Flush Syringe IV 10 ml BID GRIS Administration Sodium Chloride 10 ml 06/07/20 00:59 Sodium Chloride 0.9% 10 Ml Flush Syringe IV PRN PRN LINE FLUSH Trazodone HCl 150 mg 06/07/20 01:52 06/08/20 20:50 Trazodone 50 Mg Tab PO 150 mg QHS PRN Administration Insomnia Nutrition/Malnutrition Assess - Dietary Evaluation Nutrition/Malnutrition Findings: Nutrition Notes Start: 06/07/20 14:33 Freq: Status: Active Protocol: Document 06/11/20 13:44 (Rec: 06/11/20 13:48 [email or web address]) Nutrition Notes Initial or Follow up Reassessment Current Diagnosis Diabetes,Sepsis,Hypertension, Hyperlipidemia Other Pertinent Diagnosis UTI, HIV Current Diet Consistent CHO Labs/Tests Na 136 BG 233 Pertinent Medications Reglan NS at 125 ml/hr Height 5 ft 3 in Weight 112.2 kg [place] Body Weight (kg) 52.27 BMI 43.8 Weight Status Morbidly Obese Subjective/Other Information MD order for ONS. Pt did not answer phone x2. Per RN, pt only drinking fluids due to nausea. Burn Present Trauma Absent GI Symptoms Nausea Current % PO Negligible Minimum of two criteria No #2 Nutrition Diagnosis Inadequate oral intake Etiology acute illness As Evidenced by Signs and Symptoms pt eating <25% of meals #1 Nutrition Diagnosis Food and nutrition-related knowledge deficit Diagnosis Progress(for reassessment Continues documentation) Is patient on ventilator? No Is Patient Ambulatory and/or Out of Bed Yes REE-([facility]-ambulatory/OOB) [ 2295.969 [id number]] Kcal/Kg value to use for calculation 16 Approximate Energy Requirements Using 1795 kcal/Kg Calculation Used for Recommendations Kcal/kg Additional Notes Protein: 63-80 g (.8-1.0 g/kg AdjBW 80 kg) Fluid: 1 ml/kcal Nutrition Intervention Change Diet Order: Continue Current diet Add Supplement/Snack (indicate name/kcal Glucerna TID /protein ) Provides kCal: 660 Provides Protein (gm) 30 Goal #1 Meet 75% of estimated energy and protein needs via PO and ONS Anticipated Discharge Needs: Consistent CHO Follow-Up By: 06/13/20 Additional Comments FU for intakes, ONS tolerance
[2020-06-12] MEDS: buPROPion XL 150 MG TAB PO SCH (09:02)
[2020-06-12] MEDS: HYDROcodone/ACETAMINOPHEN 5-325 MG TAB PO PRN ×2 (09:02→20:46)
[2020-06-12] MEDS: DOLUTEGRAVIR 50 MG TAB PO SCH (09:03)
[2020-06-12] MEDS: ABACAVIR 300 MG TAB PO SCH (09:03)
[2020-06-12] MEDS: INSULIN LISPRO 100 UNIT/ML SUB-Q SCH ×8 (09:04→22:50)
[2020-06-12] MEDS: FLUCONAZOLE 200 MG 200 MG/100 ML BAG IV SCH (09:04)
[2020-06-12] MEDS: INSULIN GLARGINE 100 UNITS/ML SUB-Q SCH (09:04)
[2020-06-12] MEDS: ARIPiprazole 15 MG TAB PO SCH (09:05)
[2020-06-12] MEDS: PANTOPRAZOLE 40 MG TAB PO SCH (09:07)
--- NOTE | 2020-06-12 14:18 | Progress Note ---
Assessment and Plan 40 yo F with 1. left gluteal abscess s/p I&D, debridement 06/09/20 2. L labial abscess 3. Hx hidradenitis 4. Poorly controlled DM Plan: 1. continue abx per ID 2. daily would care - orders written 3. glucose control - will need optimization of insulin regimen as outpatient as HbA1C is 12.3 4. Hibiclens showers/sitz baths daily 5. prn pain control 6. Pt with abscess of left labia. Discussed I&D with patient. Patient has not been NPO today and last meal was at 1400. Explained that bedside I&D could be done with premedication today vs I&D in OR tomorrow. Patient refuses bedside procedure. Will add to OR schedule for tomorrow. 7. NPO p MN tonight Thank you, please call with questions. Subjective Date of service: 06/12/20 Narrative: Called by Dr. Crowe about worsening left labial swelling/pain. Pt seen and examined. Pt states she is having more swelling at the left labia and more pain. Fevers persistent. Objective Vital Signs - 12hr 06/12/20 06/12/20 06/12/20 02:28 06:07 06:20 Temperature 100.4 F H Pulse Rate 104 H Respiratory 17 18 Rate Blood Pressure 160/79 O2 Sat by Pulse 90 Oximetry 06/12/20 06:37 Temperature Pulse Rate Respiratory 18 Rate Blood Pressure O2 Sat by Pulse Oximetry - General physical appearance Narrative Exam: Gen; AAOx3. NAD CV: s1, S2+ Resp; even and unlabored Ext: no c/c/e ; L labia is swollen with fluctuance. +erythema. No drainage from the area. No crepitus. - Labs 06/11/20 05:38 06/11/20 05:38
--- NOTE | 2020-06-12 15:28 | Progress Note ---
Assessment and Plan Cultures: 06/06/2020 blood culture: No growth 06/06/2020 urine culture: Mixed tash 06/09/2020 buttock culture: Group B streptococcus A/P: 40-year-old female with diabetes, hypertension, noncompliance was admitted to the emergency room after she came in due to bilateral flank pain and suprapubic pain: #Sepsis, likely secondary to urinary tract infection/pyelonephritis given flank pain and also left gluteal abscess #Left gluteal cellulitis with abscess: Has had previous surgeries. Known to Dr. Dalal, status post I&D of her left buttock on 06/09/2020. #Diabetes mellitus, type II: Uncontrolled #SYLWIA: renally dose abx. Improved. #HIV, follows up with Dr. Ponce. Is on Triumeq, reports excellent compliance, reports undetectable viral load. Last CD4 count in our system is 314 in September 2017. Recs: -continue IV Ancef plus high dose clindamycin to help inhibit toxin production -Continue p.o. Triumeq -awaiting possible additional debridement -continue fluconazole -HIV RNA PCR and CD4 ordered Estrella Dukes MD, FACP [facility] ([facility] O: [phone] F: [phone] Subjective Date of service: 06/12/20 Interval history: Pt with ongoing fever. Continues to have pain in the buttock and groin region with worsening swelling in labial region. Objective - Exam Narrative Exam: Physical Exam: Constitutional: Alert, cooperative. No acute distress Head, Ears, Nose: Normocephalic, atraumatic. External ears, nose normal Eyes: Conjunctivae/corneas clear. No icterus. No ptosis. Neck: Supple, no meningeal signs Cardiovascular: S1, S2 normal. Respiratory: Good air entry, clear to auscultation bilaterally GI: Soft, non-tender; bowel sounds normal. No peritoneal signs mild suprapubic and CVA tenderness Musculoskeletal: No pedal edema, no cyanosis. Groin exam deferred Skin: No rash or abscess Hem/Lymphatic: No palpable cervical or supraclavicular nodes. No lymphangitis Psych: Mood ok. Affect normal Neurological: Awake, alert, oriented. No gross abnormality - Constitutional Vitals: Vital Signs Temp Pulse Resp BP Pulse Ox 100.4 F H 104 H 18 160/79 90 03/09/21 06:20 06/12/20 06:20 06/12/20 06:37 06/12/20 06:20 06/12/20 06:20 Temperature -Last 24 Hours Temperature 100.4 F Temperature 102.9 F Temperature 98.4 F - Labs CBC & Chem 7: 06/11/20 05:38 06/11/20 05:38 Labs: Abnormal lab results 06/11/20 06/11/20 06/12/20 Range/Units 15:55 23:36 03:42 POC Glucose 148 H 149 H 129 H (70-105) mg/dL 06/12/20 Range/Units 07:59 POC Glucose 135 H (70-105) mg/dL
[2020-06-12] MEDS: SODIUM CHLORIDE 0.9% 1000 ML 1,000 ML IV SCH (20:47)
[2020-06-13] MEDS: MORPHINE 2 MG/1 ML INJ IV PRN (03:53)
[2020-06-13 05:29] LABS: Basophils % (Auto) 0.2 % (0.0-1.8); Eosinophils # (Auto) 0.1 K/mm3 (0.0-0.4); Eosinophils % (Auto) 1.1 % (0.0-4.3); Hematocrit 26.4 % (30.3-42.9); Hemoglobin 8.9 gm/dl (10.1-14.3); Lymphocytes # (Auto) 1.3 K/mm3 (1.2-5.4); Lymphocytes % (Auto) 10.8 % (13.4-35.0); Mean Corpuscular HGB Conc 34 % (30-34); Mean Corpuscular Volume 100 fl (79-97); Monocytes % (Auto) 8.2 % (0.0-7.3); Platelet Count 155 K/mm3 (140-440); Red Blood Count 2.63 M/mm3 (3.65-5.03); Red Cell Distribution Width 13.7 % (13.2-15.2)
[2020-06-13 05:48] LABS: Calcium 8.2 mg/dL (8.4-10.2)
[2020-06-13] MEDS: HEPARIN 5,000 UNIT/1 ML VIAL SUB-Q SCH ×3 (06:13→21:39)
[2020-06-13] MEDS: SODIUM CHLORIDE 0.9% 1000 ML 1,000 ML IV SCH ×2 (06:16→07:35)
[2020-06-13] MEDS ORDERED: BUPIVACAINE/PF (0.25%) 2.5 MG/ML 30 ML VIAL INFILTRATI ONE (07:28)
[2020-06-13] MEDS ORDERED: HYDROGEN PEROXIDE 118 ML SOLUTION ONE (07:29)
[2020-06-13] MEDS: INSULIN LISPRO 100 UNIT/ML SUB-Q SCH ×8 (07:30→22:33)
[2020-06-13] MEDS ORDERED: ONDANSETRON 4 MG/2 ML INJ IV PRN (07:30)
--- NOTE | 2020-06-13 07:37 | Progress Note ---
Assessment and Plan Assessment and plan: UTI. Right gluteal abscess/cellulitis. Sepsis. Etiology secondary to above. Diabetes mellitus type 2. Hypertension Left renal calculus. 06/08/2020. Continue antibiotics of Rocephin and vancomycin. ID consultation pending. Continue to monitor temperature curve. Follow-up blood and urine cultures. Continue Lantus, SSRI and Accu-Cheks. 06/09/2020. Continue antibiotics per ID recommendations. Surgery evaluated the patient and recommends incision and drainage of left gluteal abscess in OR toda y. Continue tight glycemic control. Increase Lantus to 35 units. 06/10/2020. Patient is s/p Incision and drainage, excisional debridement of right gluteal abscess. Surgery found 5 cm abscess cavity of the right gluteal cleft. Follow-up blood and wound cultures. Continue antibiotics per ID recom mendations. Tight glycemic control. Continue Lantus 35 units. 06/11/2020. Patient is POD#2 for Incision and drainage, excisional debridement of right gluteal abscess. Surgery found 5 cm abscess cavity of the right gluteal cleft. Continue IV antibiotics per ID recommendations. Tight glycemic control. Urine culture negative. Blood cultures negative x4 days. Patient still with significant fever. Patient with [place] and morphine for pain 06/12/2020; day 3 status post excisional debridement of right gluteal abscess. Surgery found 5 cm abscess cavity of the right gluteal cleft. Continue IV a ntibiotics per ID recommendations. Tight glycemic control. Urine culture negative. Blood cultures negative x4 days. Patient still with significant fever. Patient with [place] and morphine for pain. Continue inpatient care. There is significant swelling and tenderness of the labia majora and surrounding areas. Patient is followed by general surgery and will get in touch with Dr. simpson. 06/13/2020; patient will have another debridement today per general surgery. ID is following the patient and patient is on IV Ancef and clindamycin. Wound culture grew group A streptococcus. 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 History Interval history: Patient was seen and evaluated this morning Patient did not have fever overnight Patient was complaining worsening of swelling, extending to the labia majora and very tender Hospitalist Physical - Physical exam Narrative exam: Not in cardiopulmonary distress. The patient is morbidly obese. Vital signs as documented. Head exam is unremarkable. No scleral icterus . Neck is without jugular venous distension, thyromegaly, or carotid bruits. Lungs are clear to auscultation. Cardiac exam reveals regular rate and Rhythm. Abdominal exam reveals normal bowel sounds, nontender, no organomegaly. Extremities are nonedematous and both femoral and pedal pulses are normal. SYSTEMS DEVELOPER: Alert and oriented 3. No focal weakness. Sacral decubitus ulcer. Worsening of swelling in the perineal and vaginal area. Significant swelling and tenderness of the labia majora. - Constitutional Vitals: Temp Pulse Resp BP Pulse Ox 98.4 F 89 20 156/84 96 06/13/20 07:00 06/13/20 07:00 06/13/20 07:00 06/13/20 07:00 06/13/20 07:00 General appearance: Present: no acute distress, well-nourished Results - Labs CBC & Chem 7: 06/13/20 04:57 06/13/20 04:57 Labs: Laboratory Last Values WBC 11.8 K/mm3 (4.5-11.0) H 06/13/20 04:57 RBC 2.63 M/mm3 (3.65-5.03) L 06/13/20 04:57 Hgb 8.9 gm/dl (10.1-14.3) L 06/13/20 04:57 Hct 26.4 % (30.3-42.9) L 06/13/20 04:57 MCV 100 fl (79-97) H 06/13/20 04:57 MCH 34 pg (28-32) H 06/13/20 04:57 MCHC 34 % (30-34) 06/13/20 04:57 RDW 13.7 % (13.2-15.2) 06/13/20 04:57 Plt Count 155 K/mm3 (140-440) 06/13/20 04:57 Lymph % (Auto) 10.8 % (13.4-35.0) L 06/13/20 04:57 Wake % (Auto) 8.2 % (0.0-7.3) H 06/13/20 04:57 Eos % (Auto) 1.1 % (0.0-4.3) 06/13/20 04:57 Baso % (Auto) 0.2 % (0.0-1.8) 06/13/20 04:57 Lymph # (Auto) 1.3 K/mm3 (1.2-5.4) 06/13/20 04:57 Wake # (Auto) 1.0 K/mm3 (0.0-0.8) H 06/13/20 04:57 Eos # (Auto) 0.1 K/mm3 (0.0-0.4) 06/13/20 04:57 Baso # (Auto) 0.0 K/mm3 (0.0-0.1) 06/13/20 04:57 Seg Neutrophils % 79.7 % (40.0-70.0) H 06/13/20 04:57 Seg Neutrophils # 9.4 K/mm3 (1.8-7.7) H 06/13/20 04:57 PT 12.9 Sec. (12.2-14.9) 06/08/20 04:00 INR 0.99 (0.87-1.13) 06/08/20 04:00 Sodium 138 mmol/L (137-145) 06/13/20 04:57 Potassium 3.6 mmol/L (3.6-5.0) 06/13/20 04:57 Chloride 104.1 mmol/L (98-107) 06/13/20 04:57 Carbon Dioxide 23 mmol/L (22-30) 06/13/20 04:57 Anion Gap 15 mmol/L 06/13/20 04:57 BUN 13 mg/dL (7-17) 06/13/20 04:57 Creatinine 1.3 mg/dL (0.6-1.2) H 06/13/20 04:57 Estimated GFR 46 ml/min 06/13/20 04:57 BUN/Creatinine Ratio 10 % 06/13/20 04:57 Glucose 221 mg/dL (65-100) H 06/13/20 04:57 POC Glucose 233 mg/dL (70-105) H 06/12/20 22:41 Hemoglobin A1c 12.0 % (4-6) H 06/09/20 04:43 Lactic Acid 1.70 mmol/L (0.7-2.0) 06/06/20 22:34 Calcium 8.2 mg/dL (8.4-10.2) L 06/13/20 04:57 Total Bilirubin 0.50 mg/dL (0.1-1.2) 06/06/20 19:59 AST 15 units/L (5-40) 06/06/20 19:59 ALT 29 units/L (7-56) 06/06/20 19:59 Alkaline Phosphatase 115 units/L (35-129) 06/06/20 19:59 Total Protein 6.6 g/dL (6.3-8.2) 06/06/20 19:59 Albumin 3.7 g/dL (3.9-5) L 06/06/20 19:59 Albumin/Globulin Ratio 1.3 % 06/06/20 19:59 HCG, Qual Negative (Negative) 06/06/20 23:19 Urine Color Yellow (Yellow) 06/06/20 Unknown Urine Turbidity Slightly-cloudy (Clear) 06/06/20 Unknown Urine pH 5.0 (5.0-7.0) 06/06/20 Unknown Ur Specific [place] 1.023 (1.003-1.030) 06/06/20 Unknown Urine Protein >500 mg/dL (Negative) 06/06/20 Unknown Urine Glucose (UA) >=500 mg/dL (Negative) 06/06/20 Unknown Urine Ketones Neg mg/dL (Negative) 06/06/20 Unknown Urine Blood Sm (Negative) 06/06/20 Unknown Urine Nitrite Neg (Negative) 06/06/20 Unknown Urine Bilirubin Neg (Negative) 06/06/20 Unknown Urine Urobilinogen < 2.0 mg/dL (<2.0) 06/06/20 Unknown Ur Leukocyte Esterase Neg (Negative) 06/06/20 Unknown Urine WBC (Auto) 16.0 /HPF (0.0-6.0) H 06/06/20 Unknown Urine RBC (Auto) 8.0 /HPF (0.0-6.0) 06/06/20 Unknown U Epithel Cells (Auto) 5.0 /HPF (0-13.0) 06/06/20 Unknown Urine Bacteria (Auto) 1+ /HPF (Negative) 06/06/20 Unknown Urine Mucus Few /HPF 06/06/20 Unknown Vancomycin Trough 19.9 ug/mL (5.0-20.0) 06/10/20 20:33 Perry/IV: Voiding Method Toilet Active Medications - Current Medications Current Medications: Generic Name Dose Route Start Last Admin Trade Name Freq PRN Reason Stop Dose Admin Abacavir Sulfate 600 mg 06/07/20 10:00 06/12/20 09:03 Abacavir 300 Mg Tab PO 600 mg DAILY GRIS Administration Acetaminophen 650 mg 06/07/20 00:59 06/12/20 00:07 Acetaminophen 325 Mg Tab PO 650 mg Q4H PRN Administration Pain MILD(1-3)/Fever >100.5/CHAVARRIA Hydrocodone Bitart/Acetaminophen 1 each 06/09/20 11:00 06/12/20 20:46 Hydrocodone/Acetaminophen 5-325 Mg Tab PO 1 each Q4H PRN Administration Pain, Moderate (4-6) Aripiprazole 15 mg 06/07/20 10:00 06/12/20 09:05 Aripiprazole 15 Mg Tab PO Not Given QDAY GRIS Bupropion HCl 150 mg 06/07/20 10:00 06/12/20 09:02 Bupropion Xl 150 Mg Tab PO Not Given QDAY GRIS Dextrose 50 ml 06/07/20 00:59 Dextrose 50% In Water (25gm) 50 Ml Syringe IV Q30MIN PRN Hypoglycemia Protocol Diphenhydramine HCl 25 mg 06/07/20 08:16 06/12/20 23:07 Diphenhydramine 50 Mg/Ml Vial IV 25 mg Q6H PRN Administration Itching Heparin Sodium (Porcine) 5,000 unit 06/07/20 06:00 06/13/20 06:13 Heparin 5,000 Unit/1 Ml Vial SUB-Q Not Given Q8HR GRIS Hydromorphone HCl 0.5 mg 06/13/20 07:30 Hydromorphone 1 Mg/1 Ml Inj IV Q10MIN PRN Pain , Severe (7-10) Sodium Chloride 1,000 mls @ 125 mls/hr 06/07/20 01:00 06/13/20 06:16 Nacl 0.9% 1000 Ml IV 125 mls/hr DIRECT GRIS Administration Fluconazole 200 mg in 100 mls @ 100 mls/hr 06/11/20 14:00 06/12/20 09:04 Diflucan IV 100 mls/hr Q24HR GRIS Administration Protocol Clindamycin HCl 900 mg in 50 mls @ 100 mls/hr 06/11/20 13:00 06/13/20 04:21 Cleocin 900 Mg/50 Ml IV 06/14/20 12:59 100 mls/hr Q8H GRIS Administration Protocol Cefazolin Sodium 2 gm/ Sodium 100 mls @ 200 mls/hr 06/11/20 14:00 06/13/20 06:15 Chloride IV 200 mls/hr Q8HR GRIS Administration Protocol Insulin Glargine 35 units 06/09/20 10:00 06/12/20 09:04 Insulin Glargine 100 Units/Ml SUB-Q 35 units QAM GRIS Administration Insulin Human Lispro 0 unit 06/07/20 07:30 06/12/20 22:50 Insulin Lispro 100 Unit/Ml SUB-Q 3 unit ACHS GRIS Administration Protocol Insulin Human Lispro 8 unit 06/07/20 11:30 06/12/20 22:40 Insulin Lispro 100 Unit/Ml SUB-Q Not Given ACHS GRIS Lamivudine 300 mg 06/07/20 10:00 06/12/20 09:03 Lamivudine 150 Mg Tab PO 300 mg DAILY GRIS Administration Magnesium Hydroxide 30 ml 06/07/20 00:59 Magnesium Hydroxide (Mom) Oral Liqd Udc PO Q4H PRN Constipation Metoclopramide HCl 5 mg 06/10/20 14:24 06/11/20 23:20 Metoclopramide 10 Mg/2 Ml Inj IV 5 mg ACHS PRN Administration Nausea Midazolam HCl 2 mg 06/13/20 08:00 Midazolam 2 Mg/2 Ml Inj IV 06/13/20 23:59 PREOP NR Morphine Sulfate 2 mg 06/07/20 00:59 06/13/20 03:53 Morphine 2 Mg/1 Ml Inj IV 2 mg Q4H PRN Administration Pain , Severe (7-10) Ondansetron HCl 4 mg 06/07/20 00:59 06/09/20 12:44 Ondansetron 4 Mg/2 Ml Inj IV 4 mg Q8H PRN Administration Nausea And Vomiting Ondansetron HCl 4 mg 06/13/20 07:30 Ondansetron 4 Mg/2 Ml Inj IV ONCE PRN Nausea And Vomiting Pantoprazole Sodium 40 mg 06/07/20 10:00 06/12/20 09:07 Pantoprazole 40 Mg Tab PO 40 mg DAILY GRIS Administration Sodium Chloride 10 ml 06/07/20 10:00 06/12/20 22:52 Sodium Chloride 0.9% 10 Ml Flush Syringe IV 10 ml BID GRIS Administration Sodium Chloride 10 ml 06/07/20 00:59 Sodium Chloride 0.9% 10 Ml Flush Syringe IV PRN PRN LINE FLUSH Trazodone HCl 150 mg 06/07/20 01:52 06/08/20 20:50 Trazodone 50 Mg Tab PO 150 mg QHS PRN Administration Insomnia Nutrition/Malnutrition Assess - Dietary Evaluation Nutrition/Malnutrition Findings: Nutrition Notes Start: 06/07/20 14:33 Freq: Status: Active Protocol: Document 06/11/20 13:44 MK (Rec: 06/11/20 13:48 MK [id number]) Nutrition Notes Initial or Follow up Reassessment Current Diagnosis Diabetes,Sepsis,Hypertension, Hyperlipidemia Other Pertinent Diagnosis UTI, HIV Current Diet Consistent CHO Labs/Tests Na 136 BG 233 Pertinent Medications Reglan NS at 125 ml/hr Height 5 ft 3 in Weight 112.2 kg Vance Body Weight (kg) 52.27 BMI 43.8 Weight Status Morbidly Obese Subjective/Other Information MD order for ONS. Pt did not answer phone x2. Per RN, pt only drinking fluids due to nausea. Burn Present Trauma Absent GI Symptoms Nausea Current % PO Negligible Minimum of two criteria No #2 Nutrition Diagnosis Inadequate oral intake Etiology acute illness As Evidenced by Signs and Symptoms pt eating <25% of meals #1 Nutrition Diagnosis Food and nutrition-related knowledge deficit Diagnosis Progress(for reassessment Continues documentation) Is patient on ventilator? No Is Patient Ambulatory and/or Out of Bed Yes REE-([facility]-ambulatory/OOB) [ 6161.969 [id number]] Kcal/Kg value to use for calculation 16 Approximate Energy Requirements Using 1795 kcal/Kg Calculation Used for Recommendations Kcal/kg Additional Notes Protein: 63-80 g (.8-1.0 g/kg AdjBW 80 kg) Fluid: 1 ml/kcal Nutrition Intervention Change Diet Order: Continue Current diet Add Supplement/Snack (indicate name/kcal Glucerna TID /protein ) Provides kCal: 660 Provides Protein (gm) 30 Goal #1 Meet 75% of estimated energy and protein needs via PO and ONS Anticipated Discharge Needs: Consistent CHO Follow-Up By: 06/13/20 Additional Comments FU for intakes, ONS tolerance
--- NOTE | 2020-06-13 07:42 | Anesthesia Day of Surgery ---
Anesthesia Day of Surgery - Day of Surgery Patient Examined: Yes Patient H&P Reviewed: Yes Patient is NPO: Yes
[2020-06-13] MEDS ORDERED: propofoL 200 MG/20 ML VIAL IV ONE ×2 (07:46→08:23)
[2020-06-13] MEDS ORDERED: fentaNYL 100 MCG/2 ML INJ ONE (07:46)
[2020-06-13] MEDS ORDERED: KETAMINE/STERILE WATER 50 MG/ML SYRINGE ONE (07:56)
[2020-06-13] MEDS ORDERED: MIDAZOLAM 2 MG/2 ML INJ IV NR (08:00)
[2020-06-13] MEDS ORDERED: SODIUM HYPOCHLORITE, DAKIN'S FULL STRENGTH (0.5%) 473 ML TOPICAL SOLN ONE (08:35)
[2020-06-13] MEDS ORDERED: SODIUM HYPOCHLORITE, DAKIN'S 1/2 STRENGTH (0.25%) 473 ML TOPICAL SOLN ONE (08:36)
[2020-06-13] MEDS ORDERED: BUPIVACAINE/PF (0.5%) 5 MG/1 ML 30 ML VIAL INFILTRATI ONE (08:40)
[2020-06-13] MEDS ORDERED: SODIUM HYPOCHLORITE, DAKIN'S 1/2 STRENGTH (0.25%) 473 ML TOPICAL SOLN IR ONE (08:43)
[2020-06-13] MEDS: HYDROmorphone 1 MG/1 ML INJ IV PRN ×6 (09:12→22:32)
[2020-06-13] MEDS: FLUCONAZOLE 200 MG 200 MG/100 ML BAG IV SCH (09:34)
[2020-06-13] MEDS: diphenhydrAMINE 50 MG/ML VIAL IV PRN ×3 (09:42→22:32)
--- NOTE | 2020-06-13 09:58 | Post Operative Note ---
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
[2020-06-13] MEDS: INSULIN GLARGINE 100 UNITS/ML SUB-Q SCH (10:00)
[2020-06-13] MEDS: ARIPiprazole 15 MG TAB PO SCH (13:06)
[2020-06-13] MEDS: DOLUTEGRAVIR 50 MG TAB PO SCH (13:10)
[2020-06-13] MEDS: buPROPion XL 150 MG TAB PO SCH (13:10)
[2020-06-13] MEDS: PANTOPRAZOLE 40 MG TAB PO SCH (13:11)
[2020-06-13] MEDS: ABACAVIR 300 MG TAB PO SCH (13:14)
[2020-06-13] MEDS ORDERED: VANCOMYCIN 1,750 MG in SODIUM CHLORIDE 0.9% 500 ML 500 ML IV ONE (13:23)
--- NOTE | 2020-06-13 13:23 | Progress Note ---
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 #Left gluteal, labial cellulitis with abscess: Has had previous surgeries. Known to Dr. Dalal, status post I&D of her left buttock on 06/09/2020. Went back to OR on 06/13/2020, Large abscess cavity involving left labia, perineum with necrotic tissue and foul smelling purulent drainage. Concerning for jony's p er d/w Dr. Dalal. #Diabetes mellitus, type II: Uncontrolled #SYLWIA: renally dose abx. Improved. #HIV, follows up with Dr. Ponce. Is on Triumeq, reports excellent compliance, reports undetectable viral load. Last CD4 count in our system is 314 in September 2017. Recs: -Ancef switched to Cefepime and Vancomycin, f/u new cultures. Large abscess cavity involving left labia, perineum with necrotic tissue and foul smelling purulent drainage. Concerning for jony's per d/w Dr. Dalal -continue IV Clindamycin to help inhibit toxin production -Continue p.o. Triumeq -continue fluconazole -f/u HIV RNA PCR and CD4 Estrella Dukes MD, FACP [facility] O: [phone] F: [phone] Subjective Date of service: 06/13/20 Interval history: No fever. Went to OR. Remains on abx. No diarrhea. Objective - Exam Narrative Exam: Physical Exam: Constitutional: Alert, cooperative. No acute distress Head, Ears, Nose: Normocephalic, atraumatic. External ears, nose normal Eyes: Conjunctivae/corneas clear. No icterus. No ptosis. Neck: Supple, no meningeal signs Cardiovascular: S1, S2 normal. Respiratory: Good air entry, clear to auscultation bilaterally GI: Soft, non-tender; bowel sounds normal. No peritoneal signs. Musculoskeletal: No pedal edema, no cyanosis. Groin exam deferred Skin: No rash or abscess Hem/Lymphatic: No palpable cervical or supraclavicular nodes. No lymphangitis Psych: Mood ok. Affect normal Neurological: Awake, alert, oriented. No gross abnormality - Constitutional Vitals: Vital Signs Temp Pulse Resp BP Pulse Ox 98.6 F 117 H 18 173/99 98 06/13/20 11:24 06/13/20 11:24 06/13/20 11:24 06/13/20 11:24 06/13/20 11:24 Temperature -Last 24 Hours Temperature 98.6 F Temperature 98.9 F Temperature 98.9 F Temperature 98.5 F Temperature 97.4 F Temperature 97.9 F Temperature 97.9 F Temperature 98.4 F Temperature 98.4 F Temperature 98.4 F - Labs CBC & Chem 7: 06/13/20 04:57 06/13/20 04:57 Labs: Abnormal lab results 06/12/20 06/12/20 06/12/20 Range/Units 11:23 16:28 22:41 WBC (4.5-11.0) K/mm3 RBC (3.65-5.03) M/mm3 Hgb (10.1-14.3) gm/dl Hct (30.3-42.9) % MCV (79-97) fl MCH (28-32) pg Lymph % (Auto) (13.4-35.0) % Turner % (Auto) (0.0-7.3) % Turner # (Auto) (0.0-0.8) K/mm3 Seg Neutrophils % (40.0-70.0) % Seg Neutrophils # (1.8-7.7) K/mm3 Creatinine (0.6-1.2) mg/dL Glucose (65-100) mg/dL POC Glucose 115 H 127 H 233 H (70-105) mg/dL Calcium (8.4-10.2) mg/dL 06/13/20 06/13/20 06/13/20 Range/Units 04:57 04:57 07:27 WBC 11.8 H (4.5-11.0) K/mm3 RBC 2.63 L (3.65-5.03) M/mm3 Hgb 8.9 L (10.1-14.3) gm/dl Hct 26.4 L (30.3-42.9) % MCV 100 H (79-97) fl MCH 34 H (28-32) pg Lymph % (Auto) 10.8 L (13.4-35.0) % Turner % (Auto) 8.2 H (0.0-7.3) % Turner # (Auto) 1.0 H (0.0-0.8) K/mm3 Seg Neutrophils % 79.7 H (40.0-70.0) % Seg Neutrophils # 9.4 H (1.8-7.7) K/mm3 Creatinine 1.3 H (0.6-1.2) mg/dL Glucose 221 H (65-100) mg/dL POC Glucose 162 H (70-105) mg/dL Calcium 8.2 L (8.4-10.2) mg/dL 06/13/20 Range/Units 09:09 WBC (4.5-11.0) K/mm3 RBC (3.65-5.03) M/mm3 Hgb (10.1-14.3) gm/dl Hct (30.3-42.9) % MCV (79-97) fl MCH (28-32) pg Lymph % (Auto) (13.4-35.0) % Turner % (Auto) (0.0-7.3) % Turner # (Auto) (0.0-0.8) K/mm3 Seg Neutrophils % (40.0-70.0) % Seg Neutrophils # (1.8-7.7) K/mm3 Creatinine (0.6-1.2) mg/dL Glucose (65-100) mg/dL POC Glucose 174 H (70-105) mg/dL Calcium (8.4-10.2) mg/dL
[2020-06-13] MEDS ORDERED: FUROSEMIDE 40 MG/4 ML INJ IV SCH (13:30)
[2020-06-13] MEDS: CEFEPIME/NS 2 GM/100 ML 2 GM/100 ML BAG IV SCH ×2 (13:47→22:33)
[2020-06-13] MEDS ORDERED: FUROSEMIDE 40 MG/4 ML INJ IV NR (14:00)
[2020-06-13] MEDS ORDERED: hydrALAZINE 20 MG/1 ML INJ IV NR (14:00)
[2020-06-13] MEDS ORDERED: VANCOMYCIN PHARMACY TO DOSE IV SCH (14:00)
[2020-06-13] MEDS ORDERED: CEFEPIME/NS 2 GM/100 ML 2 GM/100 ML BAG IV SCH (14:00)
[2020-06-13] MEDS: VANCOMYCIN 1,500 MG in SODIUM CHLORIDE 0.9% 500 ML 500 ML IV SCH (16:05)
[2020-06-13] MEDS: ACETAMINOPHEN 325 MG TAB PO PRN (18:48)
[2020-06-13] MEDS: METOCLOPRAMIDE 10 MG/2 ML INJ IV PRN (18:56)
[2020-06-14] MEDS: HYDROmorphone 1 MG/1 ML INJ IV PRN ×6 (03:58→21:34)
[2020-06-14] MEDS: diphenhydrAMINE 50 MG/ML VIAL IV PRN ×3 (04:10→18:46)
[2020-06-14 05:22] LABS: Hematocrit 25.9 % (30.3-42.9); Hemoglobin 8.7 gm/dl (10.1-14.3); Mean Corpuscular HGB Conc 34 % (30-34); Mean Corpuscular Volume 99 fl (79-97); Platelet Count 202 K/mm3 (140-440); Red Blood Count 2.61 M/mm3 (3.65-5.03); Red Cell Distribution Width 14.1 % (13.2-15.2)
[2020-06-14 05:23] LABS: Basophils % (Auto) 0.3 % (0.0-1.8); Eosinophils # (Auto) 0.2 K/mm3 (0.0-0.4); Eosinophils % (Auto) 1.3 % (0.0-4.3); Lymphocytes # (Auto) 1.7 K/mm3 (1.2-5.4); Lymphocytes % (Auto) 11.9 % (13.4-35.0); Monocytes % (Auto) 6.8 % (0.0-7.3)
[2020-06-14 05:41] LABS: Calcium 8.4 mg/dL (8.4-10.2)
[2020-06-14] MEDS: HEPARIN 5,000 UNIT/1 ML VIAL SUB-Q SCH ×3 (05:49→21:32)
[2020-06-14] MEDS: CEFEPIME/NS 2 GM/100 ML 2 GM/100 ML BAG IV SCH ×3 (06:52→21:33)
[2020-06-14] MEDS: INSULIN LISPRO 100 UNIT/ML SUB-Q SCH ×7 (07:30→21:36)
[2020-06-14] MEDS: INSULIN GLARGINE 100 UNITS/ML SUB-Q SCH ×2 (08:26→09:20)
--- NOTE | 2020-06-14 08:53 | Progress Note ---
Assessment and Plan Assessment and plan: UTI. Right gluteal abscess/cellulitis. Sepsis. Etiology secondary to above. Diabetes mellitus type 2. Hypertension Left renal calculus. 06/08/2020. Continue antibiotics of Rocephin and vancomycin. ID consultation pending. Continue to monitor temperature curve. Follow-up blood and urine cultures. Continue Lantus, SSRI and Accu-Cheks. 06/09/2020. Continue antibiotics per ID recommendations. Surgery evaluated the patient and recommends incision and drainage of left gluteal abscess in OR toda y. Continue tight glycemic control. Increase Lantus to 35 units. 06/10/2020. Patient is s/p Incision and drainage, excisional debridement of right gluteal abscess. Surgery found 5 cm abscess cavity of the right gluteal cleft. Follow-up blood and wound cultures. Continue antibiotics per ID recom mendations. Tight glycemic control. Continue Lantus 35 units. 06/11/2020. Patient is POD#2 for Incision and drainage, excisional debridement of right gluteal abscess. Surgery found 5 cm abscess cavity of the right gluteal cleft. Continue IV antibiotics per ID recommendations. Tight glycemic control. Urine culture negative. Blood cultures negative x4 days. Patient still with significant fever. Patient with Davis and morphine for pain 06/12/2020; day 3 status post excisional debridement of right gluteal abscess. Surgery found 5 cm abscess cavity of the right gluteal cleft. Continue IV a ntibiotics per ID recommendations. Tight glycemic control. Urine culture negative. Blood cultures negative x4 days. Patient still with significant fever. Patient with Davis and morphine for pain. Continue inpatient care. There is significant swelling and tenderness of the labia majora and surrounding areas. Patient is followed by general surgery and will get in touch with Dr. simpson. 06/13/2020; patient will have another debridement today per general surgery. ID is following the patient and patient is on IV Ancef and clindamycin. Wound culture grew group A streptococcus. 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 06/15/1902/23/2021; patient had incision and drainage of abscess, foreigners gangrene by general surgery yesterday. ID is following the patient and Ancef is changed to cefepime and continue with clindamycin. Patient has leukocytosis today. No fever overnight. Continue inpatient care. Will follow general surgery r ecommendation. Patient has history of HIV. Continue diabetic management. History Interval history: Patient was seen and evaluated this morning Patient did not have fever overnight, patient's pain is getting better Status post drainage of abscess extending to the labia majora Hospitalist Physical - Physical exam Narrative exam: Not in cardiopulmonary distress. The patient is morbidly obese. Vital signs as documented. Head exam is unremarkable. No scleral icterus . Neck is without jugular venous distension, thyromegaly, or carotid bruits. Lungs are clear to auscultation. Cardiac exam reveals regular rate and Rhythm. Abdominal exam reveals normal bowel sounds, nontender, no organomegaly. Extremities are nonedematous and both femoral and pedal pulses are normal. COMMUNICATIONS DEPARTMENT HEAD: Alert and oriented 3. No focal weakness. Sacral decubitus ulcer. Status post incision drainage of abscess in the sacral and left labia majora area - Constitutional Vitals: Temp Pulse Resp BP Pulse Ox 98.7 F 94 H 16 145/74 98 06/14/20 04:38 06/14/20 04:38 06/14/20 04:38 06/14/20 04:38 06/14/20 04:38 General appearance: Present: no acute distress, well-nourished Results - Labs CBC & Chem 7: 06/14/20 04:19 06/14/20 04:19 Labs: Laboratory Last Values WBC 14.2 K/mm3 (4.5-11.0) H 06/14/20 04:19 RBC 2.61 M/mm3 (3.65-5.03) L 06/14/20 04:19 Hgb 8.7 gm/dl (10.1-14.3) L 06/14/20 04:19 Hct 25.9 % (30.3-42.9) L 06/14/20 04:19 MCV 99 fl (79-97) H 06/14/20 04:19 MCH 34 pg (28-32) H 06/14/20 04:19 MCHC 34 % (30-34) 06/14/20 04:19 RDW 14.1 % (13.2-15.2) 06/14/20 04:19 Plt Count 202 K/mm3 (140-440) 06/14/20 04:19 Lymph % (Auto) 11.9 % (13.4-35.0) L 06/14/20 04:19 [place] % (Auto) 6.8 % (0.0-7.3) 06/14/20 04:19 Eos % (Auto) 1.3 % (0.0-4.3) 06/14/20 04:19 Baso % (Auto) 0.3 % (0.0-1.8) 06/14/20 04:19 Lymph # (Auto) 1.7 K/mm3 (1.2-5.4) 06/14/20 04:19 [place] # (Auto) 1.0 K/mm3 (0.0-0.8) H 06/14/20 04:19 Eos # (Auto) 0.2 K/mm3 (0.0-0.4) 06/14/20 04:19 Baso # (Auto) 0.0 K/mm3 (0.0-0.1) 06/14/20 04:19 Seg Neutrophils % 79.7 % (40.0-70.0) H 06/14/20 04:19 Seg Neutrophils # 11.3 K/mm3 (1.8-7.7) H 06/14/20 04:19 PT 12.9 Sec. (12.2-14.9) 06/08/20 04:00 INR 0.99 (0.87-1.13) 06/08/20 04:00 Sodium 135 mmol/L (137-145) L 06/14/20 04:19 Potassium 3.7 mmol/L (3.6-5.0) 06/14/20 04:19 Chloride 100.8 mmol/L (98-107) 06/14/20 04:19 Carbon Dioxide 22 mmol/L (22-30) 06/14/20 04:19 Anion Gap 16 mmol/L 06/14/20 04:19 BUN 10 mg/dL (7-17) 06/14/20 04:19 Creatinine 1.1 mg/dL (0.6-1.2) 06/14/20 04:19 Estimated GFR 55 ml/min 06/14/20 04:19 BUN/Creatinine Ratio 9 % 06/14/20 04:19 Glucose 160 mg/dL (65-100) H 06/14/20 04:19 POC Glucose 184 mg/dL (70-105) H 06/14/20 07:29 Hemoglobin A1c 12.0 % (4-6) H 06/09/20 04:43 Lactic Acid 1.70 mmol/L (0.7-2.0) 06/06/20 22:34 Calcium 8.4 mg/dL (8.4-10.2) 06/14/20 04:19 Total Bilirubin 0.50 mg/dL (0.1-1.2) 06/06/20 19:59 AST 15 units/L (5-40) 06/06/20 19:59 ALT 29 units/L (7-56) 06/06/20 19:59 Alkaline Phosphatase 115 units/L (35-129) 06/06/20 19:59 Total Protein 6.6 g/dL (6.3-8.2) 06/06/20 19:59 Albumin 3.7 g/dL (3.9-5) L 06/06/20 19:59 Albumin/Globulin Ratio 1.3 % 06/06/20 19:59 HCG, Qual Negative (Negative) 06/06/20 23:19 Urine Color Yellow (Yellow) 06/06/20 Unknown Urine Turbidity Slightly-cloudy (Clear) 06/06/20 Unknown Urine pH 5.0 (5.0-7.0) 06/06/20 Unknown Ur Specific [place] 1.023 (1.003-1.030) 06/06/20 Unknown Urine Protein >500 mg/dL (Negative) 06/06/20 Unknown Urine Glucose (UA) >=500 mg/dL (Negative) 06/06/20 Unknown Urine Ketones Neg mg/dL (Negative) 06/06/20 Unknown Urine Blood Sm (Negative) 06/06/20 Unknown Urine Nitrite Neg (Negative) 06/06/20 Unknown Urine Bilirubin Neg (Negative) 06/06/20 Unknown Urine Urobilinogen < 2.0 mg/dL (<2.0) 06/06/20 Unknown Ur Leukocyte Esterase Neg (Negative) 06/06/20 Unknown Urine WBC (Auto) 16.0 /HPF (0.0-6.0) H 06/06/20 Unknown Urine RBC (Auto) 8.0 /HPF (0.0-6.0) 06/06/20 Unknown U Epithel Cells (Auto) 5.0 /HPF (0-13.0) 06/06/20 Unknown Urine Bacteria (Auto) 1+ /HPF (Negative) 06/06/20 Unknown Urine Mucus Few /HPF 06/06/20 Unknown Vancomycin Trough 19.9 ug/mL (5.0-20.0) 06/10/20 20:33 [place]/IV: Voiding Method Toilet Active Medications - Current Medications Current Medications: Generic Name Dose Route Start Last Admin Trade Name Freq PRN Reason Stop Dose Admin Abacavir Sulfate 600 mg 06/07/20 10:00 06/13/20 13:14 Abacavir 300 Mg Tab PO 600 mg DAILY GRIS Administration Acetaminophen 650 mg 06/07/20 00:59 06/13/20 18:48 Acetaminophen 325 Mg Tab PO 650 mg Q4H PRN Administration Pain MILD(1-3)/Fever >100.5/CHAVARRIA Hydrocodone Bitart/Acetaminophen 1 each 06/09/20 11:00 06/12/20 20:46 Hydrocodone/Acetaminophen 5-325 Mg Tab PO 1 each Q4H PRN Administration Pain, Moderate (4-6) Aripiprazole 15 mg 06/07/20 10:00 06/13/20 13:06 Aripiprazole 15 Mg Tab PO Not Given QDAY GRIS Bupropion HCl 150 mg 06/07/20 10:00 06/13/20 13:10 Bupropion Xl 150 Mg Tab PO 150 mg QDAY GRIS Administration Dextrose 50 ml 06/07/20 00:59 Dextrose 50% In Water (25gm) 50 Ml Syringe IV Q30MIN PRN Hypoglycemia Protocol Diphenhydramine HCl 25 mg 06/07/20 08:16 06/14/20 04:10 Diphenhydramine 50 Mg/Ml Vial IV 25 mg Q6H PRN Administration Itching Heparin Sodium (Porcine) 5,000 unit 06/07/20 06:00 06/14/20 05:49 Heparin 5,000 Unit/1 Ml Vial SUB-Q 5,000 unit Q8HR GRIS Administration Hydromorphone HCl 0.5 mg 06/13/20 10:08 06/14/20 08:26 Hydromorphone 1 Mg/1 Ml Inj IV 0.5 mg Q3H PRN Administration Pain , Severe (7-10) Fluconazole 200 mg in 100 mls @ 100 mls/hr 06/11/20 14:00 06/13/20 09:34 Diflucan IV 100 mls/hr Q24HR GRIS Administration Protocol Clindamycin HCl 900 mg in 50 mls @ 100 mls/hr 06/11/20 13:00 06/14/20 05:49 Cleocin 900 Mg/50 Ml IV 06/14/20 12:59 100 mls/hr Q8H GRIS Administration Protocol Cefepime HCl 2 gm in 100 mls @ 200 mls/hr 06/13/20 14:00 06/14/20 06:52 Cefepime/Ns 2 Gm/100 Ml IV 200 mls/hr Q8HR GRIS Administration Protocol Vancomycin HCl 1,500 mg/ 530 mls @ 333.333 mls/hr 06/13/20 14:00 06/13/20 16:05 Sodium Chloride IV 333.333 mls/hr Q18H GRIS Administration Insulin Glargine 35 units 06/09/20 10:00 06/14/20 08:26 Insulin Glargine 100 Units/Ml SUB-Q 35 units QAM GRIS Administration Insulin Human Lispro 0 unit 06/07/20 07:30 06/14/20 07:30 Insulin Lispro 100 Unit/Ml SUB-Q 2 unit ACHS [facility] Administration Protocol Insulin Human Lispro 8 unit 06/07/20 11:30 06/14/20 08:12 Insulin Lispro 100 Unit/Ml SUB-Q 8 unit ACHS GRIS Administration Lamivudine 300 mg 06/07/20 10:00 06/13/20 13:11 Lamivudine 150 Mg Tab PO 300 mg DAILY GRIS Administration Magnesium Hydroxide 30 ml 06/07/20 00:59 Magnesium Hydroxide (Mom) Oral Liqd Udc PO Q4H PRN Constipation Metoclopramide HCl 5 mg 06/10/20 14:24 06/13/20 18:56 Metoclopramide 10 Mg/2 Ml Inj IV 5 mg ACHS PRN Administration Nausea Ondansetron HCl 4 mg 06/07/20 00:59 06/09/20 12:44 Ondansetron 4 Mg/2 Ml Inj IV 4 mg Q8H PRN Administration Nausea And Vomiting Pantoprazole Sodium 40 mg 06/07/20 10:00 06/13/20 13:11 Pantoprazole 40 Mg Tab PO Not Given DAILY GRIS Sodium Chloride 10 ml 06/07/20 10:00 06/13/20 21:38 Sodium Chloride 0.9% 10 Ml Flush Syringe IV 10 ml BID GRIS Administration Sodium Chloride 10 ml 06/07/20 00:59 Sodium Chloride 0.9% 10 Ml Flush Syringe IV PRN PRN LINE FLUSH Trazodone HCl 150 mg 06/07/20 01:52 06/08/20 20:50 Trazodone 50 Mg Tab PO 150 mg QHS PRN Administration Insomnia Nutrition/Malnutrition Assess - Dietary Evaluation Nutrition/Malnutrition Findings: Nutrition Notes Start: 06/07/20 14:33 Freq: Status: Active Protocol: Document 06/13/20 10:27 AT (Rec: 06/13/20 10:47 AT [id number]) Co-Sign 06/13/20 10:27 CW Nutrition Notes Initial or Follow up Reassessment Current Diagnosis Diabetes,Sepsis,Hypertension, Hyperlipidemia Other Pertinent Diagnosis UTI, HIV, Hidradenitis, s/p debridement, Kidney Stones Current Diet Consistent CHO Labs/Tests Cr 1.3 BG 221 Ca 8.2 Pertinent Medications Lantus Humalog Height 5 ft 3 in Weight 113 kg [place] Body Weight (kg) 52.27 BMI 44.1 Weight Status Morbidly Obese Subjective/Other Information Follow up for intakes, ONS tolerance. Could not reach pt by phone x2. Per chart, pt is consuming 60% of meals. Pt was NPO and added supplements to diet order. Percent of energy/protein needs met: 69%/87% Burn Absent Trauma Absent Current % PO Fair (50-74%) Minimum of two criteria No physical signs of malnutrition #2 Nutrition Diagnosis Inadequate oral intake As Evidenced by Signs and Symptoms pt consuming 60% of meals Diagnosis Progress(for reassessment Improved documentation) #1 Nutrition Diagnosis Food and nutrition-related knowledge deficit As Evidenced by Signs and Symptoms education conducted 3/4 Diagnosis Progress(for reassessment Resolved documentation) Is patient on ventilator? No Is Patient Ambulatory and/or Out of Bed Yes REE-([place]-St. Jeor-ambulatory/OOB) [ 2306.369 [id number]] Kcal/Kg value to use for calculation 15 Approximate Energy Requirements Using 1695 kcal/Kg Calculation Used for Recommendations Kcal/kg Additional Notes PRO needs: 66-83 g(0.8-1g/kg AdBW 83 kg) Fluid needs: 1 mL/kcal or per MD Nutrition Intervention Change Diet Order: Change to Consistent CHO with cardiac modifications due to elevated BP Add Supplement/Snack (indicate name/kcal Glucerna TID /protein ) Provides kCal: 660 Provides Protein (gm) 30 Goal #1 Meet 75% of estimated energy and protein needs via PO and ONS Anticipated Discharge Needs: Cardiac/Consistent CHO Follow-Up By: 06/15/20 Additional Comments F/U for intakes, ONS tolerance
[2020-06-14] MEDS: ABACAVIR 300 MG TAB PO SCH (09:17)
[2020-06-14] MEDS: buPROPion XL 150 MG TAB PO SCH ×2 (09:18→09:24)
[2020-06-14] MEDS: DOLUTEGRAVIR 50 MG TAB PO SCH (09:18)
[2020-06-14] MEDS: PANTOPRAZOLE 40 MG TAB PO SCH (09:19)
[2020-06-14] MEDS: ARIPiprazole 15 MG TAB PO SCH (09:19)
[2020-06-14] MEDS: VANCOMYCIN 1,500 MG in SODIUM CHLORIDE 0.9% 500 ML 500 ML IV SCH (11:45)
--- NOTE | 2020-06-14 13:25 | Progress Note ---
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 left gluteal abscess s/p I&D, debridement 06/09/20 2. L labial abscess - fourniers gangrene 3. Hx hidradenitis 4. Poorly controlled DM Plan: 1. continue abx per ID 2. wound cultures pending 3. glucose control - will need optimization of insulin regimen as outpatient as HbA1C is 12.3 4. Hibiclens showers/sitz baths daily - patient instructed to do sitz bath today and she is not allowing repacking of wound 5. prn pain control 6. Pt will need additional debridement and unroofing of wound cavity. Will return to OR tomorrow. Pt agreeable. Intraop findings explained to patient. 7. NPO p DAVIDA dumont 8. D/W Case management - in the past, patient has cared for her own wounds at home with assistance of [facility] and outpatient visits to [facility]. Informed that pt meets criteria for LTAC. If patient is agreeable to LTAC, may start auth process. Otherwise, anticipate dc to home with [facility]. Thank you, please call with questions. Subjective Date of service: 06/14/20 Narrative: Pt seen and examined. c/o pain at the surgical site. States dressing was removed and packing also removed. She refused repacking the wound due to pain. Tm 102.2 yesterday evening. No fever overnight. Objective Vital Signs - 12hr 06/14/20 04:38 Temperature 98.7 F Pulse Rate 94 H Respiratory 16 Rate Blood Pressure 145/74 O2 Sat by Pulse 98 Oximetry - General physical appearance Narrative Exam: Gen: AAOx3. NAD CV: S1, S2+ Resp: even and unlabored Abd: soft, NT, ND ; L labial wound open without odor or drainage. L gluteal wound open without drainage, cavity appears clean. There is induration of the left labia, perineum with TTP on palpation. - Labs 06/14/20 04:19 06/14/20 04:19 Diabetes panel 06/14/20 Range/Units 04:19 Sodium 135 L (137-145) mmol/L Potassium 3.7 (3.6-5.0) mmol/L Chloride 100.8 (98-107) mmol/L Carbon Dioxide 22 (22-30) mmol/L BUN 10 (7-17) mg/dL Creatinine 1.1 (0.6-1.2) mg/dL Glucose 160 H (65-100) mg/dL Calcium 8.4 (8.4-10.2) mg/dL Calcium panel 06/14/20 Range/Units 04:19 Calcium 8.4 (8.4-10.2) mg/dL Pituitary panel 06/14/20 Range/Units 04:19 Sodium 135 L (137-145) mmol/L Potassium 3.7 (3.6-5.0) mmol/L Chloride 100.8 (98-107) mmol/L Carbon Dioxide 22 (22-30) mmol/L BUN 10 (7-17) mg/dL Creatinine 1.1 (0.6-1.2) mg/dL Glucose 160 H (65-100) mg/dL Calcium 8.4 (8.4-10.2) mg/dL Adrenal panel 06/14/20 Range/Units 04:19 Sodium 135 L (137-145) mmol/L Potassium 3.7 (3.6-5.0) mmol/L Chloride 100.8 (98-107) mmol/L Carbon Dioxide 22 (22-30) mmol/L BUN 10 (7-17) mg/dL Creatinine 1.1 (0.6-1.2) mg/dL Glucose 160 H (65-100) mg/dL Calcium 8.4 (8.4-10.2) mg/dL
--- NOTE | 2020-06-14 14:10 | Progress Note ---
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 #Left gluteal, labial cellulitis with abscess: Has had previous surgeries. Known to Dr. Dalal, status post I&D of her left buttock on 06/09/2020. Went back to OR on 06/13/2020, Large abscess cavity involving left labia, perineum with necrotic tissue and foul smelling purulent drainage. Concerning for jony's p er d/w Dr. Dalal. #Diabetes mellitus, type II: Uncontrolled #SYLWIA: renally dose abx. Improved. #HIV, follows up with Dr. Ponce. Is on Triumeq, reports excellent compliance, reports undetectable viral load. Last CD4 count in our system is 314 in September 2017. Recs: -Continue empiric Cefepime and Vancomycin, f/u new cultures -Completed 3 days of clindamycin -Continue PO Triumeq (as individual components: abacavir, lamivudine and dolutegravir) -continue fluconazole -f/u HIV RNA PCR and CD4 Estrella Dukes MD, FACP [facility] O: [phone] F: [phone] Subjective Date of service: 06/14/20 Interval history: Fever yesterday evening, T-max 101.2 F. Continues to complain of pain at surgical site. Objective - Exam Narrative Exam: Physical Exam: Constitutional: Alert, cooperative. No acute distress Head, Ears, Nose: Normocephalic, atraumatic. External ears, nose normal Eyes: Conjunctivae/corneas clear. No icterus. No ptosis. Neck: Supple, no meningeal signs Cardiovascular: S1, S2 normal. Respiratory: Good air entry, clear to auscultation bilaterally GI: Soft, non-tender; bowel sounds normal. No peritoneal signs. Musculoskeletal: No pedal edema, no cyanosis. Groin exam deferred Skin: No rash or abscess Hem/Lymphatic: No palpable cervical or supraclavicular nodes. No lymphangitis Psych: Mood ok. Affect normal Neurological: Awake, alert, oriented. No gross abnormality - Constitutional Vitals: Vital Signs Temp Pulse Resp BP Pulse Ox 99.2 F 90 20 152/72 98 06/14/20 11:30 06/14/20 11:30 06/14/20 11:30 06/14/20 11:30 06/14/20 11:30 Temperature -Last 24 Hours Temperature 99.2 F Temperature 98.7 F Temperature 98.3 F Temperature 101.2 F Temperature 98.7 F - Labs CBC & Chem 7: 06/14/20 04:19 06/14/20 04:19 Labs: Abnormal lab results 06/13/20 06/13/20 06/14/20 Range/Units 16:12 21:08 04:19 WBC 14.2 H (4.5-11.0) K/mm3 RBC 2.61 L (3.65-5.03) M/mm3 Hgb 8.7 L (10.1-14.3) gm/dl Hct 25.9 L (30.3-42.9) % MCV 99 H (79-97) fl MCH 34 H (28-32) pg Lymph % (Auto) 11.9 L (13.4-35.0) % [place] # (Auto) 1.0 H (0.0-0.8) K/mm3 Seg Neutrophils % 79.7 H (40.0-70.0) % Seg Neutrophils # 11.3 H (1.8-7.7) K/mm3 Sodium (137-145) mmol/L Glucose (65-100) mg/dL POC Glucose 191 H 125 H (70-105) mg/dL 06/14/20 06/14/20 06/14/20 Range/Units 04:19 07:29 11:29 WBC (4.5-11.0) K/mm3 RBC (3.65-5.03) M/mm3 Hgb (10.1-14.3) gm/dl Hct (30.3-42.9) % MCV (79-97) fl MCH (28-32) pg Lymph % (Auto) (13.4-35.0) % [place] # (Auto) (0.0-0.8) K/mm3 Seg Neutrophils % (40.0-70.0) % Seg Neutrophils # (1.8-7.7) K/mm3 Sodium 135 L (137-145) mmol/L Glucose 160 H (65-100) mg/dL POC Glucose 184 H 160 H (70-105) mg/dL
[2020-06-14] MEDS: METOCLOPRAMIDE 10 MG/2 ML INJ IV PRN ×2 (14:47→18:30)
[2020-06-14] MEDS: FLUCONAZOLE 200 MG 200 MG/100 ML BAG IV SCH (15:00)
[2020-06-14] MEDS: ONDANSETRON 4 MG/2 ML INJ IV PRN (21:34)
[2020-06-15] MEDS: INSULIN LISPRO 100 UNIT/ML SUB-Q SCH ×10 (00:06→22:38)
[2020-06-15] MEDS: diphenhydrAMINE 50 MG/ML VIAL IV PRN ×5 (00:26→22:38)
[2020-06-15] MEDS: HYDROmorphone 1 MG/1 ML INJ IV PRN ×10 (00:27→22:39)
[2020-06-15] MEDS: VANCOMYCIN 1,500 MG in SODIUM CHLORIDE 0.9% 500 ML 500 ML IV SCH ×2 (00:27→01:30)
[2020-06-15] MEDS: HEPARIN 5,000 UNIT/1 ML VIAL SUB-Q SCH ×3 (05:08→21:28)
[2020-06-15] MEDS: ONDANSETRON 4 MG/2 ML INJ IV PRN (05:09)
[2020-06-15] MEDS: CEFEPIME/NS 2 GM/100 ML 2 GM/100 ML BAG IV SCH ×4 (05:09→21:34)
[2020-06-15] MEDS ORDERED: HYDROGEN PEROXIDE 118 ML SOLUTION ONE (07:39)
[2020-06-15] MEDS ORDERED: BUPIVACAINE/PF (0.5%) 5 MG/1 ML 30 ML VIAL INFILTRATI ONE (07:40)
[2020-06-15] MEDS ORDERED: KETOROLAC 30 MG/1 ML INJ ONE (07:41)
[2020-06-15] MEDS ORDERED: LIDOCAINE MPF (2%) 20 MG/1 ML VIAL 5 ML ONE (07:41)
[2020-06-15] MEDS ORDERED: ONDANSETRON 4 MG/2 ML INJ ONE (07:41)
[2020-06-15] MEDS ORDERED: HYDROmorphone 1 MG/1 ML INJ ONE (07:42)
[2020-06-15] MEDS ORDERED: MIDAZOLAM 2 MG/2 ML INJ ONE (07:42)
[2020-06-15] MEDS ORDERED: propofoL 200 MG/20 ML VIAL IV ONE ×3 (07:43→10:05)
[2020-06-15] MEDS ORDERED: KETAMINE/STERILE WATER 50 MG/ML SYRINGE ONE (07:44)
[2020-06-15] MEDS ORDERED: LIDOCAINE (1%) 10 MG/1 ML VIAL 20 ML MDV ONE (07:47)
[2020-06-15] MEDS ORDERED: SODIUM CHLORIDE 0.9% IRR 1,500 ML BOTTLE IR ONE ×2 (07:59→09:54)
[2020-06-15] MEDS ORDERED: LIDOCAINE (1%) 10 MG/1 ML VIAL 20 ML MDV INFILTRATI ONE ×3 (07:59→09:54)
[2020-06-15] MEDS ORDERED: BUPIVACAINE/PF (0.25%) 2.5 MG/ML 30 ML VIAL INFILTRATI ONE ×3 (07:59→09:54)
[2020-06-15] MEDS ORDERED: HYDROGEN PEROXIDE 118 ML SOLUTION IRRIGATION ONE (08:00)
--- NOTE | 2020-06-15 08:43 | Progress Note ---
Assessment and Plan Assessment and plan: UTI. Right gluteal abscess/cellulitis. Sepsis. Etiology secondary to above. Diabetes mellitus type 2. Hypertension Left renal calculus. 06/08/2020. Continue antibiotics of Rocephin and vancomycin. ID consultation pending. Continue to monitor temperature curve. Follow-up blood and urine cultures. Continue Lantus, SSRI and Accu-Cheks. 06/09/2020. Continue antibiotics per ID recommendations. Surgery evaluated the patient and recommends incision and drainage of left gluteal abscess in OR toda y. Continue tight glycemic control. Increase Lantus to 35 units. 06/10/2020. Patient is s/p Incision and drainage, excisional debridement of right gluteal abscess. Surgery found 5 cm abscess cavity of the right gluteal cleft. Follow-up blood and wound cultures. Continue antibiotics per ID recom mendations. Tight glycemic control. Continue Lantus 35 units. 06/11/2020. Patient is POD#2 for Incision and drainage, excisional debridement of right gluteal abscess. Surgery found 5 cm abscess cavity of the right gluteal cleft. Continue IV antibiotics per ID recommendations. Tight glycemic control. Urine culture negative. Blood cultures negative x4 days. Patient still with significant fever. Patient with [place] and morphine for pain 06/12/2020; day 3 status post excisional debridement of right gluteal abscess. Surgery found 5 cm abscess cavity of the right gluteal cleft. Continue IV a ntibiotics per ID recommendations. Tight glycemic control. Urine culture negative. Blood cultures negative x4 days. Patient still with significant fever. Patient with [place] and morphine for pain. Continue inpatient care. There is significant swelling and tenderness of the labia majora and surrounding areas. Patient is followed by general surgery and will get in touch with Dr. simpson. 06/13/2020; patient will have another debridement today per general surgery. ID is following the patient and patient is on IV Ancef and clindamycin. Wound culture grew group A streptococcus. 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 06/14/2020; patient had incision and drainage of abscess, foreigners gangrene by general surgery yesterday. ID is following the patient and Ancef is changed to cefepime and continue with clindamycin. Patient has leukocytosis today. No fever overnight. Continue inpatient care. Will follow general surgery [place] mmendation. Patient has history of HIV. Continue diabetic management. 06/15/2020; patient finished clindamycin and currently on cefepime, vancomycin and fluconazole. Will follow culture result. ID is following the patient. General surgery is following and will take to the OR for further drainage today. History Interval history: Patient was seen and evaluated this morning Patient did not have fever overnight, patient's pain is getting better Status post drainage of abscess extending to the labia majora Hospitalist Physical - Physical exam Narrative exam: Not in cardiopulmonary distress. The patient is morbidly obese. Vital signs as documented. Head exam is unremarkable. No scleral icterus . Neck is without jugular venous distension, thyromegaly, or carotid bruits. Lungs are clear to auscultation. Cardiac exam reveals regular rate and Rhythm. Abdominal exam reveals normal bowel sounds, nontender, no organomegaly. Extremities are nonedematous and both femoral and pedal pulses are normal. [employer]: Alert and oriented 3. No focal weakness. Sacral decubitus ulcer. Status post incision drainage of abscess in the sacral and left labia majora area - Constitutional Vitals: Temp Pulse Resp BP Pulse Ox 99.5 F 98 H 20 150/75 94 06/15/20 05:56 06/15/20 05:57 06/15/20 05:56 06/15/20 05:56 06/15/20 05:57 General appearance: Present: no acute distress, well-nourished Results - Labs CBC & Chem 7: 06/14/20 04:19 06/14/20 04:19 Labs: Laboratory Last Values WBC 14.2 K/mm3 (4.5-11.0) H 06/14/20 04:19 RBC 2.61 M/mm3 (3.65-5.03) L 06/14/20 04:19 Hgb 8.7 gm/dl (10.1-14.3) L 06/14/20 04:19 Hct 25.9 % (30.3-42.9) L 06/14/20 04:19 MCV 99 fl (79-97) H 06/14/20 04:19 MCH 34 pg (28-32) H 06/14/20 04:19 MCHC 34 % (30-34) 06/14/20 04:19 RDW 14.1 % (13.2-15.2) 06/14/20 04:19 Plt Count 202 K/mm3 (140-440) 06/14/20 04:19 Lymph % (Auto) 11.9 % (13.4-35.0) L 06/14/20 04:19 [place] % (Auto) 6.8 % (0.0-7.3) 06/14/20 04:19 Eos % (Auto) 1.3 % (0.0-4.3) 06/14/20 04:19 Baso % (Auto) 0.3 % (0.0-1.8) 06/14/20 04:19 Lymph # (Auto) 1.7 K/mm3 (1.2-5.4) 06/14/20 04:19 [place] # (Auto) 1.0 K/mm3 (0.0-0.8) H 06/14/20 04:19 Eos # (Auto) 0.2 K/mm3 (0.0-0.4) 06/14/20 04:19 Baso # (Auto) 0.0 K/mm3 (0.0-0.1) 06/14/20 04:19 Seg Neutrophils % 79.7 % (40.0-70.0) H 06/14/20 04:19 Seg Neutrophils # 11.3 K/mm3 (1.8-7.7) H 06/14/20 04:19 PT 12.9 Sec. (12.2-14.9) 06/08/20 04:00 INR 0.99 (0.87-1.13) 06/08/20 04:00 Sodium 135 mmol/L (137-145) L 06/14/20 04:19 Potassium 3.7 mmol/L (3.6-5.0) 06/14/20 04:19 Chloride 100.8 mmol/L (98-107) 06/14/20 04:19 Carbon Dioxide 22 mmol/L (22-30) 06/14/20 04:19 Anion Gap 16 mmol/L 06/14/20 04:19 BUN 10 mg/dL (7-17) 06/14/20 04:19 Creatinine 1.1 mg/dL (0.6-1.2) 06/14/20 04:19 Estimated GFR 55 ml/min 06/14/20 04:19 BUN/Creatinine Ratio 9 % 06/14/20 04:19 Glucose 160 mg/dL (65-100) H 06/14/20 04:19 POC Glucose 168 mg/dL (70-105) H 06/15/20 00:04 Hemoglobin A1c 12.0 % (4-6) H 06/09/20 04:43 Lactic Acid 1.70 mmol/L (0.7-2.0) 06/06/20 22:34 Calcium 8.4 mg/dL (8.4-10.2) 06/14/20 04:19 Total Bilirubin 0.50 mg/dL (0.1-1.2) 06/06/20 19:59 AST 15 units/L (5-40) 06/06/20 19:59 ALT 29 units/L (7-56) 06/06/20 19:59 Alkaline Phosphatase 115 units/L (35-129) 06/06/20 19:59 Total Protein 6.6 g/dL (6.3-8.2) 06/06/20 19:59 Albumin 3.7 g/dL (3.9-5) L 06/06/20 19:59 Albumin/Globulin Ratio 1.3 % 06/06/20 19:59 HCG, Qual Negative (Negative) 06/06/20 23:19 Urine Color Yellow (Yellow) 06/06/20 Unknown Urine Turbidity Slightly-cloudy (Clear) 06/06/20 Unknown Urine pH 5.0 (5.0-7.0) 06/06/20 Unknown Ur Specific [place] 1.023 (1.003-1.030) 06/06/20 Unknown Urine Protein >500 mg/dL (Negative) 06/06/20 Unknown Urine Glucose (UA) >=500 mg/dL (Negative) 06/06/20 Unknown Urine Ketones Neg mg/dL (Negative) 06/06/20 Unknown Urine Blood Sm (Negative) 06/06/20 Unknown Urine Nitrite Neg (Negative) 06/06/20 Unknown Urine Bilirubin Neg (Negative) 06/06/20 Unknown Urine Urobilinogen < 2.0 mg/dL (<2.0) 06/06/20 Unknown Ur Leukocyte Esterase Neg (Negative) 06/06/20 Unknown Urine WBC (Auto) 16.0 /HPF (0.0-6.0) H 06/06/20 Unknown Urine RBC (Auto) 8.0 /HPF (0.0-6.0) 06/06/20 Unknown U Epithel Cells (Auto) 5.0 /HPF (0-13.0) 06/06/20 Unknown Urine Bacteria (Auto) 1+ /HPF (Negative) 06/06/20 Unknown Urine Mucus Few /HPF 06/06/20 Unknown Vancomycin Trough 19.9 ug/mL (5.0-20.0) 06/10/20 20:33 [place]/IV: Voiding Method Toilet Active Medications - Current Medications Current Medications: Generic Name Dose Route Start Last Admin Trade Name Freq PRN Reason Stop Dose Admin Abacavir Sulfate 600 mg 06/07/20 10:00 06/14/20 09:17 Abacavir 300 Mg Tab PO 600 mg DAILY GRIS Administration Acetaminophen 650 mg 06/07/20 00:59 06/13/20 18:48 Acetaminophen 325 Mg Tab PO 650 mg Q4H PRN Administration Pain MILD(1-3)/Fever >100.5/CHAVARRIA Hydrocodone Bitart/Acetaminophen 1 each 06/09/20 11:00 06/12/20 20:46 Hydrocodone/Acetaminophen 5-325 Mg Tab PO 1 each Q4H PRN Administration Pain, Moderate (4-6) Aripiprazole 15 mg 06/07/20 10:00 06/14/20 09:19 Aripiprazole 15 Mg Tab PO Not Given QDAY GRIS Bupropion HCl 150 mg 06/07/20 10:00 06/14/20 09:24 Bupropion Xl 150 Mg Tab PO Not Given QDAY GRIS Dextrose 50 ml 06/07/20 00:59 Dextrose 50% In Water (25gm) 50 Ml Syringe IV Q30MIN PRN Hypoglycemia Protocol Diphenhydramine HCl 25 mg 06/07/20 08:16 06/15/20 06:29 Diphenhydramine 50 Mg/Ml Vial IV 25 mg Q6H PRN Administration Itching Heparin Sodium (Porcine) 5,000 unit 06/07/20 06:00 06/15/20 05:08 Heparin 5,000 Unit/1 Ml Vial SUB-Q Not Given Q8HR GRIS Hydromorphone HCl 0.5 mg 06/13/20 10:08 06/15/20 05:10 Hydromorphone 1 Mg/1 Ml Inj IV 0.5 mg Q3H PRN Administration Pain , Severe (7-10) Fluconazole 200 mg in 100 mls @ 100 mls/hr 06/11/20 14:00 06/14/20 15:00 Diflucan IV 100 mls/hr Q24HR [facility] Administration Protocol Cefepime HCl 2 gm in 100 mls @ 200 mls/hr 06/13/20 14:00 06/15/20 05:09 Cefepime/Ns 2 Gm/100 Ml IV 200 mls/hr Q8HR [facility] Administration Protocol Vancomycin HCl 1,500 mg/ 530 mls @ 333.333 mls/hr 06/13/20 14:00 06/15/20 01:30 Sodium Chloride IV Not Given Q18H [facility] Insulin Glargine 35 units 06/09/20 10:00 06/14/20 09:20 Insulin Glargine 100 Units/Ml SUB-Q Not Given QAM [facility] Insulin Human Lispro 0 unit 06/07/20 07:30 06/15/20 08:39 Insulin Lispro 100 Unit/Ml SUB-Q Not Given ACHS [facility] Protocol Insulin Human Lispro 8 unit 06/07/20 11:30 06/15/20 08:08 Insulin Lispro 100 Unit/Ml SUB-Q Not Given ACHS [facility] Lamivudine 300 mg 06/07/20 10:00 06/14/20 09:18 Lamivudine 150 Mg Tab PO 300 mg DAILY [facility] Administration Magnesium Hydroxide 30 ml 06/07/20 00:59 Magnesium Hydroxide (Mom) Oral Liqd Udc PO Q4H PRN Constipation Metoclopramide HCl 5 mg 06/10/20 14:24 06/14/20 18:30 Metoclopramide 10 Mg/2 Ml Inj IV 5 mg ACHS PRN Administration Nausea Ondansetron HCl 4 mg 06/07/20 00:59 06/15/20 05:09 Ondansetron 4 Mg/2 Ml Inj IV 4 mg Q8H PRN Administration Nausea And Vomiting Pantoprazole Sodium 40 mg 06/07/20 10:00 06/14/20 09:19 Pantoprazole 40 Mg Tab PO Not Given DAILY [facility] Sodium Chloride 10 ml 06/07/20 10:00 06/14/20 21:35 Sodium Chloride 0.9% 10 Ml Flush Syringe IV 10 ml BID GRIS Administration Sodium Chloride 10 ml 06/07/20 00:59 Sodium Chloride 0.9% 10 Ml Flush Syringe IV PRN PRN LINE FLUSH Trazodone HCl 150 mg 06/07/20 01:52 06/08/20 20:50 Trazodone 50 Mg Tab PO 150 mg QHS PRN Administration Insomnia Nutrition/Malnutrition Assess - Dietary Evaluation Nutrition/Malnutrition Findings: Nutrition Notes Start: 06/07/20 14:33 Freq: Status: Active Protocol: Document 06/15/20 08:29 (Rec: 06/15/20 08:35 [id number]) Nutrition Notes Initial or Follow up Reassessment Current Diagnosis Diabetes,Sepsis,Hypertension, Hyperlipidemia Other Pertinent Diagnosis UTI, HIV, Hidradenitis, s/p debridement, Kidney Stones Current Diet NPO Labs/Tests Na 135 BG 160 Pertinent Medications Zofran Height 5 ft 3 in Weight 122.5 kg [place] Body Weight (kg) 52.27 BMI 47.8 Weight change and time frame Wt gain noted. Will follow for accuracy. Weight Status Morbidly Obese Subjective/Other Information FU for intakes. Pt reports eating 100% of meals and 100% of 3 ONS yesterday. Pt NPO for procedure this AM. Percent of energy/protein needs met: 100%/100% Burn Absent Trauma Absent GI Symptoms None Current % PO Good (75-100%) Minimum of two criteria No physical signs of malnutrition #2 Nutrition Diagnosis Inadequate oral intake As Evidenced by Signs and Symptoms pt eating 100% of meals Diagnosis Progress(for reassessment Improved documentation) Is patient on ventilator? No Is Patient Ambulatory and/or Out of Bed Yes REE-([place]-ambulatory/OOB) [ 2429.869 [id number]] Kcal/Kg value to use for calculation 14 Approximate Energy Requirements Using 1715 kcal/Kg Calculation Used for Recommendations Kcal/kg Additional Notes PRO needs: 66-83 g(0.8-1g/kg AdBW 83 kg) Fluid needs: 1 mL/kcal or per MD Nutrition Intervention Change Diet Order: Advance as medically able Add Supplement/Snack (indicate name/kcal Glucerna daily once diet /protein ) advances Provides kCal: 220 Provides Protein (gm) 10 Goal #1 Meet 75% of estimated energy and protein needs via PO and ONS Anticipated Discharge Needs: Cardiac/Consistent CHO Follow-Up By: 06/19/20 Additional Comments FU for stable intakes and ONS tolerance/need
[2020-06-15] MEDS: ARIPiprazole 15 MG TAB PO SCH (09:26)
[2020-06-15] MEDS: INSULIN GLARGINE 100 UNITS/ML SUB-Q SCH (09:27)
[2020-06-15] MEDS: PANTOPRAZOLE 40 MG TAB PO SCH (09:27)
[2020-06-15] MEDS: DOLUTEGRAVIR 50 MG TAB PO SCH (09:28)
[2020-06-15] MEDS: buPROPion XL 150 MG TAB PO SCH (09:28)
[2020-06-15] MEDS: ABACAVIR 300 MG TAB PO SCH (09:28)
[2020-06-15] MEDS ORDERED: SODIUM HYPOCHLORITE, DAKIN'S 1/2 STRENGTH (0.25%) 473 ML TOPICAL SOLN ONE (09:55)
[2020-06-15] MEDS ORDERED: SODIUM HYPOCHLORITE, DAKIN'S 1/2 STRENGTH (0.25%) 473 ML TOPICAL SOLN IR ONE (09:58)
[2020-06-15] MEDS ORDERED: SODIUM CHLORIDE 0.9% IRRIG SOLN 2000 ML IR ONE (10:15)
--- NOTE | 2020-06-15 10:20 | Anesthesia Day of Surgery ---
Anesthesia Day of Surgery - Day of Surgery Patient Examined: Yes Patient H&P Reviewed: Yes Patient is NPO: Yes
[2020-06-15] MEDS ORDERED: ONDANSETRON 4 MG/2 ML INJ IV PRN (10:21)
--- NOTE | 2020-06-15 10:36 | Post Operative Note ---
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 Undermining from 12 o clock to 3 o clock approx. 3.5cm distance. Procedure: excisional debridement of jony's gangrene of left labia/perineum Anesthesia: MAC, local Surgeon: ANA CORTES Estimated blood loss: other (150cc) Pathology: none Condition: stable Disposition: PACU
--- NOTE | 2020-06-15 12:35 | Progress Note ---
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 #Left gluteal, labial cellulitis with abscess: Has had previous surgeries. Know n to Dr. Dalal, status post I&D of her left buttock on 06/09/2020. Went back to OR on 06/13/2020, Large abscess cavity involving left labia, perineum with necrotic tissue and foul smelling purulent drainage. Concerning for jony's per d/w Dr. Dalal. Back to OR on 06/15/2020, "Unroofed left labial and gluteal abscess cavities with debridement of necrotic skin and subq tissue, minimal purulent fluid and some necrotic tissue " #Diabetes mellitus, type II: Uncontrolled #SYLWIA: renally dose abx. Improved. #HIV, follows up with Dr. Ponce. Is on Triumeq, reports excellent compliance, reports undetectable viral load. Last CD4 count in our system is 314 in September 2017. Recs: -Continue Cefepime -vancomycin stopped -extended Clindamycin x 2 days -Continue PO Triumeq (as individual components: abacavir, lamivudine and dolutegravir) -continue fluconazole -f/u HIV RNA PCR and CD4 Estrella Dukes MD, FACP [facility] O: [phone] F: [phone] Subjective Date of service: 06/15/20 Interval history: Low grade fever. Pain at surgical site +. Went back to OR today. Objective - Exam Narrative Exam: Physical Exam: Constitutional: Alert, cooperative. No acute distress Head, Ears, Nose: Normocephalic, atraumatic. External ears, nose normal Eyes: Conjunctivae/corneas clear. No icterus. No ptosis. Neck: Supple, no meningeal signs Cardiovascular: S1, S2 normal. Respiratory: Good air entry, clear to auscultation bilaterally GI: Soft, non-tender; bowel sounds normal. No peritoneal signs. Musculoskeletal: No pedal edema, no cyanosis. Groin exam deferred Skin: No rash or abscess Hem/Lymphatic: No palpable cervical or supraclavicular nodes. No lymphangitis Psych: Mood ok. Affect normal Neurological: Awake, alert, oriented. No gross abnormality - Constitutional Vitals: Vital Signs Temp Pulse Resp BP Pulse Ox 99.4 F 96 H 19 132/68 93 06/15/20 12:05 06/15/20 12:05 06/15/20 12:05 06/15/20 12:05 06/15/20 12:05 Temperature -Last 24 Hours Temperature 99.4 F Temperature 98.1 F Temperature 99.5 F Temperature 99.9 F Temperature 99.1 F - Labs CBC & Chem 7: 06/14/20 04:19 06/14/20 04:19 Labs: Abnormal lab results 06/14/20 06/14/20 06/15/20 Range/Units 16:50 22:22 00:04 POC Glucose 125 H 125 H 168 H (70-105) mg/dL 06/15/20 06/15/20 Range/Units 08:10 10:50 POC Glucose 157 H 164 H (70-105) mg/dL
[2020-06-15] MEDS: FLUCONAZOLE 200 MG 200 MG/100 ML BAG IV SCH (13:07)
[2020-06-15 16:38] LABS: Basophils % (Auto) 0.3 % (0.0-1.8); Eosinophils # (Auto) 0.2 K/mm3 (0.0-0.4); Eosinophils % (Auto) 1.4 % (0.0-4.3); Hematocrit 25.1 % (30.3-42.9); Hemoglobin 8.3 gm/dl (10.1-14.3); Lymphocytes # (Auto) 1.7 K/mm3 (1.2-5.4); Lymphocytes % (Auto) 11.3 % (13.4-35.0); Mean Corpuscular HGB Conc 33 % (30-34); Mean Corpuscular Volume 98 fl (79-97); Monocytes # (Auto) 0.9 K/mm3 (0.0-0.8); Monocytes % (Auto) 6.1 % (0.0-7.3); Platelet Count 225 K/mm3 (140-440); Red Blood Count 2.55 M/mm3 (3.65-5.03); Red Cell Distribution Width 14.3 % (13.2-15.2)
[2020-06-15] MEDS: METOCLOPRAMIDE 10 MG/2 ML INJ IV PRN ×2 (16:39→20:04)
[2020-06-15 16:56] LABS: Calcium 7.9 mg/dL (8.4-10.2)
[2020-06-15 17:12] LABS: HIV-1 RNA QN PCR <1.30 Log cps/mL; HIV-1 RNA QN PCR <20 Copies/mL
[2020-06-15] MEDS: ACETAMINOPHEN 325 MG TAB PO PRN (18:47)
[2020-06-15] MEDS: traZODone 50 MG TAB PO PRN (21:32)
--- NOTE | 2020-06-15 22:20 | Operative Report ---
Operative Report Operative Report: Date: 06/13/20 09:56 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 Patient c/o swelling of the labia which was not improving with antibiotics and had persistent fevers. It was determined that the patient had a labial abscess and recommendation was to drain it. All risks, benefits, alternatives to surgery were discussed and questions answered. Consent obtained. Procedure in detail: The patient was identified in the preoperative area, taken back to the operating room, placed on the operating room table in supine position. After anesthesia was induced the patient was placed in frog-leg p osition in the left labia and perineum were prepped and draped in usual sterile fashion a timeout performed. There was swelling of the left labia and induration of the perineum. Upon further examination there was necrotic skin overlying the lateral aspect of the labia majora on the left consistent with Fourniers gangrene. The skin was debrided using forceps and a 15 blade. The necrotic tissue was excised and there was drainage of celis foul-smelling purulent fluid. There was also evidence that there was necrotic subcutaneous tissue. The area was probed with a gloved finger and the abscess cavity extended towards the perineum and superiorly in the labia. The wound itself measured approximately 5-1/2 x 2-1/2 cm. Sharp debridement of all necrotic subcutaneous tissue was performed using forceps, Bovie electrocautery, Metzenbaum scissors. Once all necrotic tissue was excised the wound was irrigated until the irrigant returned clear. Hemostasis was very carefully ensured. The wound was packed with 1 piece of Dakin's moistened Kerlix, covered with 4 x 4 gauze and ABD pad and secured with tape. At the end of the case, all sponge, instrument, sharp counts were correct x2.. The patient tolerated the procedure well. She was awakened from anesthesia and taken to PACU in stable condition.
--- NOTE | 2020-06-15 22:26 | Operative Report ---
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 Undermining from 12 o clock to 3 o clock approx. 3.5cm distance. Procedure: excisional debridement of jony's gangrene of left labia/perineum Anesthesia: MAC, local Surgeon: ANA CORTES Estimated blood loss: other (150cc) Pathology: none Condition: stable Disposition: PACU HPI indication: Patient is a 40-year-old female who was taken to the operating room 48 hours prior for debridement of Jony's gangrene involving the left labia and perineum. Prior to this she was taken to the operating room for a incision and drainage of the left gluteal abscess. It was recommended that the patient return to the operating room for further debridement and possible placement of the wound VAC. All risk, benefits, alternatives to surgery discussed and questions answered. Consent was obtained. Procedure in detail: The patient was identified in the preoperative area taken back to the operating room and placed on the operating room table in supine position. After anesthesia was induced she was placed in low lithotomy position. The perineum, labia, intergluteal area was prepped with Betadine and draped in usual sterile fashion. A timeout was performed. Local anesthetic was infiltrated to skin at the intended incision site. There was a prior surgical wound on the lateral aspect of the left labia and also a surgical wound on the left intergluteal area. There was tunneling from both of these wounds towards the perineum and they connected under the skin. The tunnel was unroofed by making an incision in the skin between the 2 wounds in order to connect them. There was additional purulent fluid expressed and additional necrotic tissue identified. All necrotic subcutaneous tissue was sharply excised using forceps, electrocautery, Metzenbaum scissors. The wound measured 19 x 2.5 x 5 cm in total. There was undermining from the 12:00 to 3:00 positions of approximately 3.5 cm distance. Once all necrotic tissue and purulent fluid was expressed the wound was irrigated using pulse lavage with 1.5 L of saline. Hemostasis was very carefully achieved using electrocautery. Once hemostasis was adequately achieved, 2 pieces of quick clot were placed against the wound bed and pressure held for 3 minutes. There was no active bleeding. The wound was then packed with 1 piece of Dakin's moistened Kerlix, covered with 4 x 4 gauze, ABD pads, tape. Mesh underwear was also applied. At the end of the case all sponge, instrument, sharp counts were correct x2. The patient was awoken from anesthesia and taken to PACU in stable condition.
[2020-06-15] MEDS: SODIUM CHLORIDE 0.9% 1000 ML 1,000 ML IV SCH (23:16)
[2020-06-16] MEDS: ONDANSETRON 4 MG/2 ML INJ IV PRN (03:49)
[2020-06-16] MEDS: HYDROmorphone 1 MG/1 ML INJ IV PRN ×6 (03:49→21:59)
[2020-06-16] MEDS: CEFEPIME/NS 2 GM/100 ML 2 GM/100 ML BAG IV SCH (05:01)
[2020-06-16] MEDS: HEPARIN 5,000 UNIT/1 ML VIAL SUB-Q SCH ×3 (05:01→21:07)
[2020-06-16 05:41] LABS: Hemoglobin 7.7 gm/dl (10.1-14.3); Mean Corpuscular HGB Conc 33 % (30-34); Mean Corpuscular Volume 99 fl (79-97); Platelet Count 210 K/mm3 (140-440); Red Blood Count 2.34 M/mm3 (3.65-5.03)
[2020-06-16 06:04] LABS: Calcium 8.5 mg/dL (8.4-10.2)
[2020-06-16] MEDS: ACETAMINOPHEN 325 MG TAB PO PRN ×2 (06:04→17:46)
[2020-06-16] MEDS: diphenhydrAMINE 50 MG/ML VIAL IV PRN ×3 (06:05→20:54)
[2020-06-16 06:41] LABS: Band Neutrophils # (Manual) 0.3 K/mm3; Total Cells Counted 100
[2020-06-16 06:42] LABS: Anisocytosis 1+; Platelet Estimate Cons
--- NOTE | 2020-06-16 08:04 | Progress Note ---
Assessment and Plan Assessment and plan: UTI. Right gluteal abscess/cellulitis. Sepsis. Etiology secondary to above. Diabetes mellitus type 2. Hypertension Left renal calculus. 06/08/2020. Continue antibiotics of Rocephin and vancomycin. ID consultation pending. Continue to monitor temperature curve. Follow-up blood and urine cultures. Continue Lantus, SSRI and Accu-Cheks. 06/09/2020. Continue antibiotics per ID recommendations. Surgery evaluated the patient and recommends incision and drainage of left gluteal abscess in OR toda y. Continue tight glycemic control. Increase Lantus to 35 units. 06/10/2020. Patient is s/p Incision and drainage, excisional debridement of right gluteal abscess. Surgery found 5 cm abscess cavity of the right gluteal cleft. Follow-up blood and wound cultures. Continue antibiotics per ID recom mendations. Tight glycemic control. Continue Lantus 35 units. 06/11/2020. Patient is POD#2 for Incision and drainage, excisional debridement of right gluteal abscess. Surgery found 5 cm abscess cavity of the right gluteal cleft. Continue IV antibiotics per ID recommendations. Tight glycemic control. Urine culture negative. Blood cultures negative x4 days. Patient still with significant fever. Patient with [place] and morphine for pain 06/12/2020; day 3 status post excisional debridement of right gluteal abscess. Surgery found 5 cm abscess cavity of the right gluteal cleft. Continue IV a ntibiotics per ID recommendations. Tight glycemic control. Urine culture negative. Blood cultures negative x4 days. Patient still with significant fever. Patient with [place] and morphine for pain. Continue inpatient care. There is significant swelling and tenderness of the labia majora and surrounding areas. Patient is followed by general surgery and will get in touch with Dr. simpson. 06/13/2020; patient will have another debridement today per general surgery. ID is following the patient and patient is on IV Ancef and clindamycin. Wound culture grew group A streptococcus. 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 06/14/2020; patient had incision and drainage of abscess, foreigners gangrene by general surgery yesterday. ID is following the patient and Ancef is changed to cefepime and continue with clindamycin. Patient has leukocytosis today. No fever overnight. Continue inpatient care. Will follow general surgery [place] mmendation. Patient has history of HIV. Continue diabetic management. 06/15/2020; patient finished clindamycin and currently on cefepime, vancomycin and fluconazole. Will follow culture result. ID is following the patient. General surgery is following and will take to the OR for further drainage today. 06/16/2020; patient is on cefepime, clindamycin, fluconazole and HIV medications. Patient is still shooting fever. ID is following. Patient had multiple incision and drainage of abscess. General surgery is following and will take to the OR for further drainage today. History Interval history: Patient was seen and evaluated this morning Patient had episodes of fever overnight Hospitalist Physical - Physical exam Narrative exam: Not in cardiopulmonary distress. The patient is morbidly obese. Vital signs as documented. Head exam is unremarkable. No scleral icterus . Neck is without jugular venous distension, thyromegaly, or carotid bruits. Lungs are clear to auscultation. Cardiac exam reveals regular rate and Rhythm. Abdominal exam reveals normal bowel sounds, nontender, no organomegaly. Extremities are nonedematous and both femoral and pedal pulses are normal. 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 No focal weakness. Sacral decubitus ulcer. Status post incision drainage of abscess in the sacral and left labia majora area - Constitutional Vitals: Temp Pulse Resp BP Pulse Ox 101.1 F H 104 H 18 150/73 94 06/16/20 05:01 06/16/20 05:01 06/16/20 05:01 06/16/20 05:01 06/16/20 05:01 General appearance: Present: no acute distress, well-nourished Results - Labs CBC & Chem 7: 06/16/20 04:40 06/16/20 04:40 Labs: Laboratory Last Values WBC 16.6 K/mm3 (4.5-11.0) H 06/16/20 04:40 RBC 2.34 M/mm3 (3.65-5.03) L 06/16/20 04:40 Hgb 7.7 gm/dl (10.1-14.3) L 06/16/20 04:40 Hct 23.0 % (30.3-42.9) L 06/16/20 04:40 MCV 99 fl (79-97) H 06/16/20 04:40 MCH 33 pg (28-32) H 06/16/20 04:40 MCHC 33 % (30-34) 06/16/20 04:40 RDW 14.0 % (13.2-15.2) 06/16/20 04:40 Plt Count 210 K/mm3 (140-440) 06/16/20 04:40 Lymph % (Auto) 11.3 % (13.4-35.0) L 06/15/20 16:11 [place] % (Auto) 6.1 % (0.0-7.3) 06/15/20 16:11 Eos % (Auto) 1.4 % (0.0-4.3) 06/15/20 16:11 Baso % (Auto) 0.3 % (0.0-1.8) 06/15/20 16:11 Lymph # (Auto) 1.7 K/mm3 (1.2-5.4) 06/15/20 16:11 [place] # (Auto) 0.9 K/mm3 (0.0-0.8) H 06/15/20 16:11 Eos # (Auto) 0.2 K/mm3 (0.0-0.4) 06/15/20 16:11 Baso # (Auto) 0.0 K/mm3 (0.0-0.1) 06/15/20 16:11 Add Manual Diff Complete 06/16/20 04:40 Total Counted 100 06/16/20 04:40 Seg Neutrophils % 80.9 % (40.0-70.0) H 06/15/20 16:11 Seg Neuts % (Manual) 80.0 % (40.0-70.0) H 06/16/20 04:40 Band Neutrophils % 2.0 % 06/16/20 04:40 Lymphocytes % (Manual) 11.0 % (13.4-35.0) L 06/16/20 04:40 Monocytes % (Manual) 6.0 % (0.0-7.3) 06/16/20 04:40 Eosinophils % (Manual) 1.0 % (0.0-4.3) 06/16/20 04:40 Nucleated RBC % Not Reportable 06/16/20 04:40 Seg Neutrophils # 12.1 K/mm3 (1.8-7.7) H 06/15/20 16:11 Seg Neutrophils # Man 13.3 K/mm3 (1.8-7.7) H 06/16/20 04:40 Band Neutrophils # 0.3 K/mm3 06/16/20 04:40 Lymphocytes # (Manual) 1.8 K/mm3 (1.2-5.4) 06/16/20 04:40 Abs React Lymphs (Man) 0.0 K/mm3 06/16/20 04:40 Monocytes # (Manual) 1.0 K/mm3 (0.0-0.8) H 06/16/20 04:40 Eosinophils # (Manual) 0.2 K/mm3 (0.0-0.4) 06/16/20 04:40 Basophils # (Manual) 0.0 K/mm3 (0.0-0.1) 06/16/20 04:40 Metamyelocytes # 0.0 K/mm3 06/16/20 04:40 Myelocytes # 0.0 K/mm3 06/16/20 04:40 Promyelocytes # 0.0 K/mm3 06/16/20 04:40 Blast Cells # 0.0 K/mm3 06/16/20 04:40 WBC Morphology Not Reportable 06/16/20 04:40 Hypersegmented Neuts Not Reportable 06/16/20 04:40 Hyposegmented Neuts Not Reportable 06/16/20 04:40 Hypogranular Neuts Not Reportable 06/16/20 04:40 Smudge Cells Not Reportable 06/16/20 04:40 Toxic Granulation Not Reportable 06/16/20 04:40 Toxic Vacuolation Not Reportable 06/16/20 04:40 Dohle Bodies Not Reportable 06/16/20 04:40 Pelger-Huet Anomaly Not Reportable 06/16/20 04:40 Mary Kay Rods Not Reportable 06/16/20 04:40 Platelet Estimate Cons 06/16/20 04:40 Clumped Platelets Not Reportable 06/16/20 04:40 Plt Clumps, EDTA Not Reportable 06/16/20 04:40 Large Platelets Not Reportable 06/16/20 04:40 Giant Platelets Not Reportable 06/16/20 04:40 Platelet Satelliting Not Reportable 06/16/20 04:40 Plt Morphology Comment Not Reportable 06/16/20 04:40 RBC Morphology Not Reportable 06/16/20 04:40 Dimorphic RBCs Not Reportable 06/16/20 04:40 Polychromasia Not Reportable 06/16/20 04:40 Hypochromasia Not Reportable 06/16/20 04:40 Poikilocytosis Not Reportable 06/16/20 04:40 Anisocytosis 1+ 06/16/20 04:40 Microcytosis Not Reportable 06/16/20 04:40 Macrocytosis Not Reportable 06/16/20 04:40 Spherocytes Not Reportable 06/16/20 04:40 Pappenheimer Bodies Not Reportable 06/16/20 04:40 Sickle Cells Not Reportable 06/16/20 04:40 Target Cells Not Reportable 06/16/20 04:40 Tear Drop Cells Not Reportable 06/16/20 04:40 Ovalocytes Not Reportable 06/16/20 04:40 Helmet Cells Not Reportable 06/16/20 04:40 Richardson-[place] Bodies Not Reportable 06/16/20 04:40 Theresa Rings Not Reportable 06/16/20 04:40 Karla Cells Not Reportable 06/16/20 04:40 Bite Cells Not Reportable 06/16/20 04:40 Crenated Cell Not Reportable 06/16/20 04:40 Elliptocytes Not Reportable 06/16/20 04:40 Acanthocytes (Spur) Not Reportable 06/16/20 04:40 Rouleaux Not Reportable 06/16/20 04:40 Hemoglobin C Crystals Not Reportable 06/16/20 04:40 Schistocytes Not Reportable 06/16/20 04:40 Malaria parasites Not Reportable 06/16/20 04:40 Jim Bodies Not Reportable 06/16/20 04:40 Hem Pathologist Commnt No 06/16/20 04:40 PT 12.9 Sec. (12.2-14.9) 06/08/20 04:00 INR 0.99 (0.87-1.13) 06/08/20 04:00 Sodium 134 mmol/L (137-145) L 06/16/20 04:40 Potassium 3.8 mmol/L (3.6-5.0) 06/16/20 04:40 Chloride 98.8 mmol/L (98-107) 06/16/20 04:40 Carbon Dioxide 27 mmol/L (22-30) 06/16/20 04:40 Anion Gap 12 mmol/L 06/16/20 04:40 BUN 10 mg/dL (7-17) 06/16/20 04:40 Creatinine 1.1 mg/dL (0.6-1.2) 06/16/20 04:40 Estimated GFR 55 ml/min 06/16/20 04:40 BUN/Creatinine Ratio 9 % 06/16/20 04:40 Glucose 137 mg/dL (65-100) H 06/16/20 04:40 POC Glucose 181 mg/dL (70-105) H 06/15/20 22:34 Hemoglobin A1c 12.0 % (4-6) H 06/09/20 04:43 Lactic Acid 1.70 mmol/L (0.7-2.0) 06/06/20 22:34 Calcium 8.5 mg/dL (8.4-10.2) 06/16/20 04:40 Total Bilirubin 0.50 mg/dL (0.1-1.2) 06/06/20 19:59 AST 15 units/L (5-40) 06/06/20 19:59 ALT 29 units/L (7-56) 06/06/20 19:59 Alkaline Phosphatase 115 units/L (35-129) 06/06/20 19:59 Total Protein 6.6 g/dL (6.3-8.2) 06/06/20 19:59 Albumin 3.7 g/dL (3.9-5) L 06/06/20 19:59 Albumin/Globulin Ratio 1.3 % 06/06/20 19:59 HCG, Qual Negative (Negative) 06/06/20 23:19 Urine Color Yellow (Yellow) 06/06/20 Unknown Urine Turbidity Slightly-cloudy (Clear) 06/06/20 Unknown Urine pH 5.0 (5.0-7.0) 06/06/20 Unknown Ur Specific Prole 1.023 (1.003-1.030) 06/06/20 Unknown Urine Protein >500 mg/dL (Negative) 06/06/20 Unknown Urine Glucose (UA) >=500 mg/dL (Negative) 06/06/20 Unknown Urine Ketones Neg mg/dL (Negative) 06/06/20 Unknown Urine Blood Sm (Negative) 06/06/20 Unknown Urine Nitrite Neg (Negative) 06/06/20 Unknown Urine Bilirubin Neg (Negative) 06/06/20 Unknown Urine Urobilinogen < 2.0 mg/dL (<2.0) 06/06/20 Unknown Ur Leukocyte Esterase Neg (Negative) 06/06/20 Unknown Urine WBC (Auto) 16.0 /HPF (0.0-6.0) H 06/06/20 Unknown Urine RBC (Auto) 8.0 /HPF (0.0-6.0) 06/06/20 Unknown U Epithel Cells (Auto) 5.0 /HPF (0-13.0) 06/06/20 Unknown Urine Bacteria (Auto) 1+ /HPF (Negative) 06/06/20 Unknown Urine Mucus Few /HPF 06/06/20 Unknown Vancomycin Trough 14.1 ug/mL (5.0-20.0) 06/15/20 18:29 HIV-1 RNA PCR copies/ml <20 Copies/mL H 06/13/20 04:57 HIV-1 RNA (PCR) log <1.30 Log cps/mL H 06/13/20 04:57 Microbiology: Microbiology 06/13/20 Unknown Aspirate Anaerobic Culture - Preliminary 06/09/20 Unknown Buttock Anaerobic Culture - Final 06/13/20 Unknown Labia Wound Culture - Preliminary [place]/IV: Voiding Method Toilet Active Medications - Current Medications Current Medications: Generic Name Dose Route Start Last Admin Trade Name Freq PRN Reason Stop Dose Admin Abacavir Sulfate 600 mg 06/07/20 10:00 06/15/20 09:28 Abacavir 300 Mg Tab PO Not Given DAILY [facility] Acetaminophen 650 mg 06/07/20 00:59 06/16/20 06:04 Acetaminophen 325 Mg Tab PO 650 mg Q4H PRN Administration Pain MILD(1-3)/Fever >100.5/[place] Hydrocodone Bitart/Acetaminophen 1 each 06/09/20 11:00 06/12/20 20:46 Hydrocodone/Acetaminophen 5-325 Mg Tab PO 1 each Q4H PRN Administration Pain, Moderate (4-6) Aripiprazole 15 mg 06/07/20 10:00 06/15/20 09:26 Aripiprazole 15 Mg Tab PO Not Given QDAY [facility] Bupropion HCl 150 mg 06/07/20 10:00 06/15/20 09:28 Bupropion Xl 150 Mg Tab PO Not Given QDAY [facility] Dextrose 50 ml 06/07/20 00:59 Dextrose 50% In Water (25gm) 50 Ml Syringe IV Q30MIN PRN Hypoglycemia Protocol Diphenhydramine HCl 25 mg 06/07/20 08:16 06/16/20 06:05 Diphenhydramine 50 Mg/Ml Vial IV 25 mg Q6H PRN Administration Itching Heparin Sodium (Porcine) 5,000 unit 06/07/20 06:00 06/16/20 05:01 Heparin 5,000 Unit/1 Ml Vial SUB-Q 5,000 unit Q8HR [facility] Administration Hydromorphone HCl 1 mg 06/15/20 10:42 06/16/20 07:05 Hydromorphone 1 Mg/1 Ml Inj IV 1 mg Q3H PRN Administration Pain , Severe (7-10) Fluconazole 200 mg in 100 mls @ 100 mls/hr 06/11/20 14:00 06/15/20 13:07 Diflucan IV 100 mls/hr Q24HR [facility] Administration Protocol Cefepime HCl 2 gm in 100 mls @ 200 mls/hr 06/13/20 14:00 06/16/20 05:01 Cefepime/Ns 2 Gm/100 Ml IV 200 mls/hr Q8HR [facility] Administration Protocol Clindamycin HCl 900 mg in 50 mls @ 100 mls/hr 06/15/20 13:00 06/16/20 06:05 Cleocin 900 Mg/50 Ml IV 06/17/20 12:59 100 mls/hr Q8H [facility] Administration Protocol Sodium Chloride 1,000 mls @ 75 mls/hr 06/15/20 22:15 06/15/20 23:16 Nacl 0.9% 1000 Ml IV 75 mls/hr DIRECT [facility] Administration Insulin Glargine 35 units 06/09/20 10:00 06/15/20 09:27 Insulin Glargine 100 Units/Ml SUB-Q Not Given QAM [facility] Insulin Human Lispro 0 unit 06/07/20 07:30 06/15/20 22:38 Insulin Lispro 100 Unit/Ml SUB-Q 2 unit ACHS [facility] Administration Protocol Insulin Human Lispro 8 unit 06/07/20 11:30 06/15/20 21:54 Insulin Lispro 100 Unit/Ml SUB-Q 8 unit ACHS [facility] Administration Lamivudine 300 mg 06/07/20 10:00 06/15/20 09:27 Lamivudine 150 Mg Tab PO Not Given DAILY [facility] Magnesium Hydroxide 30 ml 06/07/20 00:59 Magnesium Hydroxide (Mom) Oral Liqd Udc PO Q4H PRN Constipation Metoclopramide HCl 5 mg 06/10/20 14:24 06/15/20 20:04 Metoclopramide 10 Mg/2 Ml Inj IV 5 mg ACHS PRN Administration Nausea Ondansetron HCl 4 mg 06/07/20 00:59 06/16/20 03:49 Ondansetron 4 Mg/2 Ml Inj IV 4 mg Q8H PRN Administration Nausea And Vomiting Pantoprazole Sodium 40 mg 06/07/20 10:00 06/15/20 09:27 Pantoprazole 40 Mg Tab PO Not Given DAILY [facility] Sodium Chloride 10 ml 06/07/20 10:00 06/15/20 21:30 Sodium Chloride 0.9% 10 Ml Flush Syringe IV 10 ml BID [facility] Administration Sodium Chloride 10 ml 06/07/20 00:59 Sodium Chloride 0.9% 10 Ml Flush Syringe IV PRN PRN LINE FLUSH Trazodone HCl 150 mg 06/07/20 01:52 06/15/20 21:32 Trazodone 50 Mg Tab PO 150 mg QHS PRN Administration Insomnia Nutrition/Malnutrition Assess - Dietary Evaluation Nutrition/Malnutrition Findings: Nutrition Notes Start: 06/07/20 14:3 3 Freq: Status: Active Protocol: Document 06/15/20 12:44 CW (Rec: 06/15/20 12:48 CW [id number]) Nutrition Notes Need for Assessment generated from: MD Order Initial or Follow up Brief Note Current Diagnosis Diabetes,Sepsis,Hypertension, Hyperlipidemia Other Pertinent Diagnosis UTI, HIV, Hidradenitis, s/p debridement, Kidney Stones Current Diet Consistent CHO Subjective/Other Information Consult for ONS. Pt previously evaluated this morning during NPO status. Pt was eating 100 % of meals prior to NPO staus. D/t elevated BMI only 1 ONS needed at this time to meet needs. Percent of energy/protein needs met: 100%/100% Burn Absent Trauma Absent Current % PO Good (75-100%) Additional Notes PRO needs: 66-83 g(0.8-1g/kg AdBW 83 kg) Fluid needs: 1 mL/kcal or per MD Nutrition Intervention Change Diet Order: Continue Consistent CHO diet Add Supplement/Snack (indicate name/kcal Glucerna daily once diet /protein ) advances Provides kCal: 220 Provides Protein (gm) 10 Goal #1 Meet 75% of estimated energy and protein needs via PO and ONS Anticipated Discharge Needs: Cardiac/Consistent CHO Follow-Up By: 06/19/20 Additional Comments F/U for stable intakes and ONS tolerance
[2020-06-16] MEDS: INSULIN LISPRO 100 UNIT/ML SUB-Q SCH ×8 (08:38→22:18)
[2020-06-16] MEDS: FLUCONAZOLE 200 MG 200 MG/100 ML BAG IV SCH (10:37)
[2020-06-16] MEDS: buPROPion XL 150 MG TAB PO SCH ×2 (10:43→11:00)
[2020-06-16] MEDS: DOLUTEGRAVIR 50 MG TAB PO SCH (10:44)
[2020-06-16] MEDS: ABACAVIR 300 MG TAB PO SCH (10:44)
[2020-06-16] MEDS: INSULIN GLARGINE 100 UNITS/ML SUB-Q SCH (10:56)
[2020-06-16] MEDS: ARIPiprazole 15 MG TAB PO SCH (10:57)
[2020-06-16] MEDS: PANTOPRAZOLE 40 MG TAB PO SCH (10:58)
--- NOTE | 2020-06-16 12:26 | Progress Note ---
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 #Left gluteal, labial cellulitis with abscess: Has had previous surgeries. Know n to Dr. Dalal, status post I&D of her left buttock on 06/09/2020. Went back to OR on 06/13/2020, Large abscess cavity involving left labia, perineum with necrotic tissue and foul smelling purulent drainage. Concerning for jony's per d/w Dr. Dalal. Back to OR on 06/15/2020, "Unroofed left labial and gluteal abscess cavities with debridement of necrotic skin and subq tissue, minimal purulent fluid and some necrotic tissue " #Diabetes mellitus, type II: Uncontrolled #SYLWIA: renally dose abx. Improved. #HIV, follows up with Dr. Ponce. Is on Triumeq, reports excellent compliance, reports undetectable viral load. VL here undetectable Recs: -given ongoing fevers, escalated to IV Meropenem -continue Clindamycin x 1 more day -appreciate Gen Surg follow up for additional debridements and source control -Continue PO Triumeq (as individual components: abacavir, lamivudine and dolutegravir) -continue fluconazole -f/u CD4 Estrella Dukes MD, FACP [facility] ([facility] O: [phone] F: [phone] Subjective Date of service: 06/16/20 Interval history: Continues with intermittent fever. Tolerating abx well. HIV results back, VL is undetectable. Objective - Exam Narrative Exam: Physical Exam: Constitutional: Alert, cooperative. No acute distress Head, Ears, Nose: Normocephalic, atraumatic. External ears, nose normal Eyes: Conjunctivae/corneas clear. No icterus. No ptosis. Neck: Supple, no meningeal signs Cardiovascular: S1, S2 normal. Respiratory: Good air entry, clear to auscultation bilaterally GI: Soft, non-tender; bowel sounds normal. No peritoneal signs. Musculoskeletal: No pedal edema, no cyanosis. Groin exam deferred Skin: No rash. Hem/Lymphatic: No palpable cervical or supraclavicular nodes. No lymphangitis Psych: Mood ok. Affect normal Neurological: Awake, alert, oriented. No gross abnormality - Constitutional Vitals: Vital Signs Temp Pulse Resp BP Pulse Ox 98.9 F 102 H 20 154/80 92 06/16/20 11:34 06/16/20 11:34 06/16/20 11:34 06/16/20 11:34 06/16/20 11:34 Temperature -Last 24 Hours Temperature 98.9 F Temperature 101.1 F Temperature 101.1 F Temperature 102.8 F - Labs CBC & Chem 7: 06/16/20 04:40 06/16/20 04:40 Labs: Abnormal lab results 06/13/20 06/15/20 06/15/20 Range/Units 04:57 16:11 16:11 WBC 14.9 H (4.5-11.0) K/mm3 RBC 2.55 L (3.65-5.03) M/mm3 Hgb 8.3 L (10.1-14.3) gm/dl Hct 25.1 L (30.3-42.9) % MCV 98 H (79-97) fl MCH 33 H (28-32) pg Lymph % (Auto) 11.3 L (13.4-35.0) % [place] # (Auto) 0.9 H (0.0-0.8) K/mm3 Seg Neutrophils % 80.9 H (40.0-70.0) % Seg Neuts % (Manual) (40.0-70.0) % Lymphocytes % (Manual) (13.4-35.0) % Seg Neutrophils # 12.1 H (1.8-7.7) K/mm3 Seg Neutrophils # Man (1.8-7.7) K/mm3 Monocytes # (Manual) (0.0-0.8) K/mm3 Sodium 130 L (137-145) mmol/L Glucose 320 H (65-100) mg/dL POC Glucose (70-105) mg/dL Calcium 7.9 L (8.4-10.2) mg/dL HIV-1 RNA PCR copies/ml <20 H Copies/mL HIV-1 RNA (PCR) log <1.30 H Log cps/mL 06/15/20 06/15/20 06/16/20 Range/Units 16:26 22:34 04:40 WBC 16.6 H (4.5-11.0) K/mm3 RBC 2.34 L (3.65-5.03) M/mm3 Hgb 7.7 L (10.1-14.3) gm/dl Hct 23.0 L (30.3-42.9) % MCV 99 H (79-97) fl MCH 33 H (28-32) pg Lymph % (Auto) (13.4-35.0) % [place] # (Auto) (0.0-0.8) K/mm3 Seg Neutrophils % (40.0-70.0) % Seg Neuts % (Manual) 80.0 H (40.0-70.0) % Lymphocytes % (Manual) 11.0 L (13.4-35.0) % Seg Neutrophils # (1.8-7.7) K/mm3 Seg Neutrophils # Man 13.3 H (1.8-7.7) K/mm3 Monocytes # (Manual) 1.0 H (0.0-0.8) K/mm3 Sodium (137-145) mmol/L Glucose (65-100) mg/dL POC Glucose 316 H 181 H (70-105) mg/dL Calcium (8.4-10.2) mg/dL HIV-1 RNA PCR copies/ml Copies/mL HIV-1 RNA (PCR) log Log cps/mL 06/16/20 06/16/20 06/16/20 Range/Units 04:40 07:58 10:54 WBC (4.5-11.0) K/mm3 RBC (3.65-5.03) M/mm3 Hgb (10.1-14.3) gm/dl Hct (30.3-42.9) % MCV (79-97) fl MCH (28-32) pg Lymph % (Auto) (13.4-35.0) % [place] # (Auto) (0.0-0.8) K/mm3 Seg Neutrophils % (40.0-70.0) % Seg Neuts % (Manual) (40.0-70.0) % Lymphocytes % (Manual) (13.4-35.0) % Seg Neutrophils # (1.8-7.7) K/mm3 Seg Neutrophils # Man (1.8-7.7) K/mm3 Monocytes # (Manual) (0.0-0.8) K/mm3 Sodium 134 L (137-145) mmol/L Glucose 137 H (65-100) mg/dL POC Glucose 142 H 194 H (70-105) mg/dL Calcium (8.4-10.2) mg/dL HIV-1 RNA PCR copies/ml Copies/mL HIV-1 RNA (PCR) log Log cps/mL
[2020-06-16 12:41] LABS: CD4/CD8 Ratio 1.02 (0.86-5.00)
--- NOTE | 2020-06-16 14:24 | Event Note ---
Date: 06/16/20 Pt chart reviewed. Febrile overnight. On antibiotics per ID. Cultures pending. Discussed with RN. Advised to leave wound packing in place and reinforce outer dressing as needed. Plan to return to OR Sunday 06/18 for wound washout, dressing change, possible wound vac placement. Continue consistent carb diet and strict glucose control.
[2020-06-16] MEDS: MEROPENEM/NS 1 GRAM/100 ML 1 GRAM/100 ML BAG IV SCH ×2 (16:35→19:45)
[2020-06-16] MEDS: SODIUM CHLORIDE 0.9% 1000 ML 1,000 ML IV SCH (21:48)
[2020-06-17] MEDS: MEROPENEM/NS 1 GRAM/100 ML 1 GRAM/100 ML BAG IV SCH ×5 (00:04→23:10)
[2020-06-17] MEDS: HYDROmorphone 1 MG/1 ML INJ IV PRN ×7 (03:19→22:18)
[2020-06-17] MEDS: diphenhydrAMINE 50 MG/ML VIAL IV PRN ×4 (03:20→22:18)
[2020-06-17] MEDS: HEPARIN 5,000 UNIT/1 ML VIAL SUB-Q SCH ×3 (05:31→22:20)
[2020-06-17 05:51] LABS: Basophils % (Auto) 0.2 % (0.0-1.8); Eosinophils # (Auto) 0.3 K/mm3 (0.0-0.4); Eosinophils % (Auto) 1.4 % (0.0-4.3); Hematocrit 22.2 % (30.3-42.9); Hemoglobin 7.4 gm/dl (10.1-14.3); Lymphocytes # (Auto) 1.8 K/mm3 (1.2-5.4); Lymphocytes % (Auto) 9.8 % (13.4-35.0); Mean Corpuscular HGB Conc 33 % (30-34); Mean Corpuscular Volume 98 fl (79-97); Monocytes # (Auto) 1.2 K/mm3 (0.0-0.8); Monocytes % (Auto) 6.8 % (0.0-7.3); Platelet Count 239 K/mm3 (140-440); Red Blood Count 2.26 M/mm3 (3.65-5.03); Red Cell Distribution Width 14.1 % (13.2-15.2)
[2020-06-17 06:13] LABS: Calcium 8.5 mg/dL (8.4-10.2)
[2020-06-17] MEDS: METOCLOPRAMIDE 10 MG/2 ML INJ IV PRN (06:36)
--- NOTE | 2020-06-17 08:34 | Progress Note ---
Assessment and Plan Assessment and plan: UTI. Right gluteal abscess/cellulitis. Sepsis. Etiology secondary to above. Diabetes mellitus type 2. Hypertension Left renal calculus. 06/08/2020. Continue antibiotics of Rocephin and vancomycin. ID consultation pending. Continue to monitor temperature curve. Follow-up blood and urine cultures. Continue Lantus, SSRI and Accu-Cheks. 06/09/2020. Continue antibiotics per ID recommendations. Surgery evaluated the patient and recommends incision and drainage of left gluteal abscess in OR toda y. Continue tight glycemic control. Increase Lantus to 35 units. 06/10/2020. Patient is s/p Incision and drainage, excisional debridement of right gluteal abscess. Surgery found 5 cm abscess cavity of the right gluteal cleft. Follow-up blood and wound cultures. Continue antibiotics per ID recom mendations. Tight glycemic control. Continue Lantus 35 units. 06/11/2020. Patient is POD#2 for Incision and drainage, excisional debridement of right gluteal abscess. Surgery found 5 cm abscess cavity of the right gluteal cleft. Continue IV antibiotics per ID recommendations. Tight glycemic control. Urine culture negative. Blood cultures negative x4 days. Patient still with significant fever. Patient with Lyons and morphine for pain 06/12/2020; day 3 status post excisional debridement of right gluteal abscess. Surgery found 5 cm abscess cavity of the right gluteal cleft. Continue IV a ntibiotics per ID recommendations. Tight glycemic control. Urine culture negative. Blood cultures negative x4 days. Patient still with significant fever. Patient with Lyons and morphine for pain. Continue inpatient care. There is significant swelling and tenderness of the labia majora and surrounding areas. Patient is followed by general surgery and will get in touch with Dr. simpson. 06/13/2020; patient will have another debridement today per general surgery. ID is following the patient and patient is on IV Ancef and clindamycin. Wound culture grew group A streptococcus. 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 06/14/2020; patient had incision and drainage of abscess, foreigners gangrene by general surgery yesterday. ID is following the patient and Ancef is changed to cefepime and continue with clindamycin. Patient has leukocytosis today. No fever overnight. Continue inpatient care. Will follow general surgery bethel mmendation. Patient has history of HIV. Continue diabetic management. 06/15/2020; patient finished clindamycin and currently on cefepime, vancomycin and fluconazole. Will follow culture result. ID is following the patient. General surgery is following and will take to the OR for further drainage today. 06/16/2020; patient is on cefepime, clindamycin, fluconazole and HIV medications. Patient is still shooting fever. ID is following. Patient had multiple incision and drainage of abscess. General surgery is following and will take to the OR for further drainage today. 06/17/2020; patient is on cefepime, clindamycin, fluconazole and HIV medications. Patient is still shooting fever. ID is following. Patient had multiple incision and drainage of abscess. General surgery is following and will take her to the OR for washout of the wound and possible wound VAC placement. Patient initially refused LTAC but now she is interested in LTAC, please discuss with case management on the weekdays. Anemia of chronic illness; monitor H&H and transfuse if hemoglobin is below 7. History Interval history: Patient was seen and evaluated this morning Patient had episodes of fever overnight Patient is complaining pain at the site of wound Hospitalist Physical - Physical exam Narrative exam: Not in cardiopulmonary distress. The patient is morbidly obese. Vital signs as documented. Head exam is unremarkable. No scleral icterus . Neck is without jugular venous distension, thyromegaly, or carotid bruits. Lungs are clear to auscultation. Cardiac exam reveals regular rate and Rhythm. Abdominal exam reveals normal bowel sounds, nontender, no organomegaly. Extremities are nonedematous and both femoral and pedal pulses are normal. 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 No focal weakness. Sacral decubitus ulcer. Status post incision drainage of abscess in the sacral and left labia majora area - Constitutional Vitals: Temp Pulse Resp BP Pulse Ox 99.8 F H 104 H 18 155/82 93 06/17/20 06:17 06/17/20 06:17 06/17/20 06:35 06/17/20 06:17 06/17/20 06:17 General appearance: Present: no acute distress, well-nourished Results - Labs CBC & Chem 7: 06/17/20 04:44 06/17/20 04:44 Labs: Laboratory Last Values WBC 18.0 K/mm3 (4.5-11.0) H 06/17/20 04:44 RBC 2.26 M/mm3 (3.65-5.03) L 06/17/20 04:44 Hgb 7.4 gm/dl (10.1-14.3) L 06/17/20 04:44 Hct 22.2 % (30.3-42.9) L 06/17/20 04:44 MCV 98 fl (79-97) H 06/17/20 04:44 MCH 33 pg (28-32) H 06/17/20 04:44 MCHC 33 % (30-34) 06/17/20 04:44 RDW 14.1 % (13.2-15.2) 06/17/20 04:44 Plt Count 239 K/mm3 (140-440) 06/17/20 04:44 Lymph % (Auto) 9.8 % (13.4-35.0) L 06/17/20 04:44 [place] % (Auto) 6.8 % (0.0-7.3) 06/17/20 04:44 Eos % (Auto) 1.4 % (0.0-4.3) 06/17/20 04:44 Baso % (Auto) 0.2 % (0.0-1.8) 06/17/20 04:44 Lymph # (Auto) 1.8 K/mm3 (1.2-5.4) 06/17/20 04:44 [place] # (Auto) 1.2 K/mm3 (0.0-0.8) H 06/17/20 04:44 Eos # (Auto) 0.3 K/mm3 (0.0-0.4) 06/17/20 04:44 Baso # (Auto) 0.0 K/mm3 (0.0-0.1) 06/17/20 04:44 Add Manual Diff Complete 06/16/20 04:40 Total Counted 100 06/16/20 04:40 Seg Neutrophils % 81.8 % (40.0-70.0) H 06/17/20 04:44 Seg Neuts % (Manual) 80.0 % (40.0-70.0) H 06/16/20 04:40 Band Neutrophils % 2.0 % 06/16/20 04:40 Lymphocytes % (Manual) 11.0 % (13.4-35.0) L 06/16/20 04:40 Monocytes % (Manual) 6.0 % (0.0-7.3) 06/16/20 04:40 Eosinophils % (Manual) 1.0 % (0.0-4.3) 06/16/20 04:40 Nucleated RBC % Not Reportable 06/16/20 04:40 Seg Neutrophils # 14.7 K/mm3 (1.8-7.7) H 06/17/20 04:44 Seg Neutrophils # Man 13.3 K/mm3 (1.8-7.7) H 06/16/20 04:40 Band Neutrophils # 0.3 K/mm3 06/16/20 04:40 Abs Lymphs (Manual) 1110 cells/uL (850-3900) 06/13/20 04:57 Lymphocytes # (Manual) 1.8 K/mm3 (1.2-5.4) 06/16/20 04:40 Abs React Lymphs (Man) 0.0 K/mm3 06/16/20 04:40 Monocytes # (Manual) 1.0 K/mm3 (0.0-0.8) H 06/16/20 04:40 Eosinophils # (Manual) 0.2 K/mm3 (0.0-0.4) 06/16/20 04:40 Basophils # (Manual) 0.0 K/mm3 (0.0-0.1) 06/16/20 04:40 Metamyelocytes # 0.0 K/mm3 06/16/20 04:40 Myelocytes # 0.0 K/mm3 06/16/20 04:40 Promyelocytes # 0.0 K/mm3 06/16/20 04:40 Blast Cells # 0.0 K/mm3 06/16/20 04:40 WBC Morphology Not Reportable 06/16/20 04:40 Hypersegmented Neuts Not Reportable 06/16/20 04:40 Hyposegmented Neuts Not Reportable 06/16/20 04:40 Hypogranular Neuts Not Reportable 06/16/20 04:40 Smudge Cells Not Reportable 06/16/20 04:40 Toxic Granulation Not Reportable 06/16/20 04:40 Toxic Vacuolation Not Reportable 06/16/20 04:40 Dohle Bodies Not Reportable 06/16/20 04:40 Pelger-Huet Anomaly Not Reportable 06/16/20 04:40 Mary Kay Rods Not Reportable 06/16/20 04:40 Platelet Estimate Cons 06/16/20 04:40 Clumped Platelets Not Reportable 06/16/20 04:40 Plt Clumps, EDTA Not Reportable 06/16/20 04:40 Large Platelets Not Reportable 06/16/20 04:40 Giant Platelets Not Reportable 06/16/20 04:40 Platelet Satelliting Not Reportable 06/16/20 04:40 Plt Morphology Comment Not Reportable 06/16/20 04:40 RBC Morphology Not Reportable 06/16/20 04:40 Dimorphic RBCs Not Reportable 06/16/20 04:40 Polychromasia Not Reportable 06/16/20 04:40 Hypochromasia Not Reportable 06/16/20 04:40 Poikilocytosis Not Reportable 06/16/20 04:40 Anisocytosis 1+ 06/16/20 04:40 Microcytosis Not Reportable 06/16/20 04:40 Macrocytosis Not Reportable 06/16/20 04:40 Spherocytes Not Reportable 06/16/20 04:40 Pappenheimer Bodies Not Reportable 06/16/20 04:40 Sickle Cells Not Reportable 06/16/20 04:40 Target Cells Not Reportable 06/16/20 04:40 Tear Drop Cells Not Reportable 06/16/20 04:40 Ovalocytes Not Reportable 06/16/20 04:40 Helmet Cells Not Reportable 06/16/20 04:40 [place] Bodies Not Reportable 06/16/20 04:40 [place] Rings Not Reportable 06/16/20 04:40 Karla Cells Not Reportable 06/16/20 04:40 Bite Cells Not Reportable 06/16/20 04:40 Crenated Cell Not Reportable 06/16/20 04:40 Elliptocytes Not Reportable 06/16/20 04:40 Acanthocytes (Spur) Not Reportable 06/16/20 04:40 Rouleaux Not Reportable 06/16/20 04:40 Hemoglobin C Crystals Not Reportable 06/16/20 04:40 Schistocytes Not Reportable 06/16/20 04:40 Malaria parasites Not Reportable 06/16/20 04:40 Jim Bodies Not Reportable 06/16/20 04:40 Hem Pathologist Commnt No 06/16/20 04:40 PT 12.9 Sec. (12.2-14.9) 06/08/20 04:00 INR 0.99 (0.87-1.13) 06/08/20 04:00 Sodium 133 mmol/L (137-145) L 06/17/20 04:44 Potassium 3.9 mmol/L (3.6-5.0) 06/17/20 04:44 Chloride 97.1 mmol/L (98-107) L 06/17/20 04:44 Carbon Dioxide 28 mmol/L (22-30) 06/17/20 04:44 Anion Gap 12 mmol/L 06/17/20 04:44 BUN 11 mg/dL (7-17) 06/17/20 04:44 Creatinine 1.1 mg/dL (0.6-1.2) 06/17/20 04:44 Estimated GFR 55 ml/min 06/17/20 04:44 BUN/Creatinine Ratio 10 % 06/17/20 04:44 Glucose 167 mg/dL (65-100) H 06/17/20 04:44 POC Glucose 137 mg/dL (70-105) H 06/16/20 22:18 Hemoglobin A1c 12.0 % (4-6) H 06/09/20 04:43 Lactic Acid 1.70 mmol/L (0.7-2.0) 06/06/20 22:34 Calcium 8.5 mg/dL (8.4-10.2) 06/17/20 04:44 Total Bilirubin 0.50 mg/dL (0.1-1.2) 06/06/20 19:59 AST 15 units/L (5-40) 06/06/20 19:59 ALT 29 units/L (7-56) 06/06/20 19:59 Alkaline Phosphatase 115 units/L (35-129) 06/06/20 19:59 Total Protein 6.6 g/dL (6.3-8.2) 06/06/20 19:59 Albumin 3.7 g/dL (3.9-5) L 06/06/20 19:59 Albumin/Globulin Ratio 1.3 % 06/06/20 19:59 HCG, Qual Negative (Negative) 06/06/20 23:19 Urine Color Yellow (Yellow) 06/06/20 Unknown Urine Turbidity Slightly-cloudy (Clear) 06/06/20 Unknown Urine pH 5.0 (5.0-7.0) 06/06/20 Unknown Ur Specific [place] 1.023 (1.003-1.030) 06/06/20 Unknown Urine Protein >500 mg/dL (Negative) 06/06/20 Unknown Urine Glucose (UA) >=500 mg/dL (Negative) 06/06/20 Unknown Urine Ketones Neg mg/dL (Negative) 06/06/20 Unknown Urine Blood Sm (Negative) 06/06/20 Unknown Urine Nitrite Neg (Negative) 06/06/20 Unknown Urine Bilirubin Neg (Negative) 06/06/20 Unknown Urine Urobilinogen < 2.0 mg/dL (<2.0) 06/06/20 Unknown Ur Leukocyte Esterase Neg (Negative) 06/06/20 Unknown Urine WBC (Auto) 16.0 /HPF (0.0-6.0) H 06/06/20 Unknown Urine RBC (Auto) 8.0 /HPF (0.0-6.0) 06/06/20 Unknown U Epithel Cells (Auto) 5.0 /HPF (0-13.0) 06/06/20 Unknown Urine Bacteria (Auto) 1+ /HPF (Negative) 06/06/20 Unknown Urine Mucus Few /HPF 06/06/20 Unknown Vancomycin Trough 14.1 ug/mL (5.0-20.0) 06/15/20 18:29 Lymph Enumerat CD4/CD8 1.02 (0.86-5.00) 06/13/20 04:57 % CD3 Cells 73 % (57-85) 06/13/20 04:57 Absolute CD3 Count 813 cells/uL (840-3060) L 06/13/20 04:57 % CD4 Cells 37 % (30-61) 06/13/20 04:57 Absolute CD4 Count 397 cells/uL (490-1740) L 06/13/20 04:57 % CD8 Cells 36 % (12-42) 06/13/20 04:57 Absolute CD8 Count 388 cells/uL (180-1170) 06/13/20 04:57 % CD19 Cells 24 % (6-29) 06/13/20 04:57 Absolute CD19 Count 279 cells/uL (110-660) 06/13/20 04:57 HIV-1 RNA PCR copies/ml <20 Copies/mL H 06/13/20 04:57 HIV-1 RNA (PCR) log <1.30 Log cps/mL H 06/13/20 04:57 Microbiology: Microbiology 06/13/20 Unknown Labia Wound Culture - Preliminary Perry/IV: Voiding Method Toilet Active Medications - Current Medications Current Medications: Generic Name Dose Route Start Last Admin Trade Name Freq PRN Reason Stop Dose Admin Abacavir Sulfate 600 mg 06/07/20 10:00 06/16/20 10:44 Abacavir 300 Mg Tab PO 600 mg DAILY GRIS Administration Acetaminophen 650 mg 06/07/20 00:59 06/16/20 17:46 Acetaminophen 325 Mg Tab PO 650 mg Q4H PRN Administration Pain MILD(1-3)/Fever >100.5/CHAVARRIA Hydrocodone Bitart/Acetaminophen 1 each 06/09/20 11:00 06/12/20 20:46 Hydrocodone/Acetaminophen 5-325 Mg Tab PO 1 each Q4H PRN Administration Pain, Moderate (4-6) Aripiprazole 15 mg 06/07/20 10:00 06/16/20 10:57 Aripiprazole 15 Mg Tab PO Not Given QDAY GRIS Bupropion HCl 150 mg 06/07/20 10:00 06/16/20 11:00 Bupropion Xl 150 Mg Tab PO Not Given QDAY GRIS Dextrose 50 ml 06/07/20 00:59 Dextrose 50% In Water (25gm) 50 Ml Syringe IV Q30MIN PRN Hypoglycemia Protocol Diphenhydramine HCl 25 mg 06/07/20 08:16 06/17/20 03:20 Diphenhydramine 50 Mg/Ml Vial IV 25 mg Q6H PRN Administration Itching Heparin Sodium (Porcine) 5,000 unit 06/07/20 06:00 06/17/20 05:31 Heparin 5,000 Unit/1 Ml Vial SUB-Q 5,000 unit Q8HR GRIS Administration Hydromorphone HCl 1 mg 06/15/20 10:42 06/17/20 06:35 Hydromorphone 1 Mg/1 Ml Inj IV 1 mg Q3H PRN Administration Pain , Severe (7-10) Fluconazole 200 mg in 100 mls @ 100 mls/hr 06/11/20 14:00 06/16/20 10:37 Diflucan IV 100 mls/hr Q24HR GRIS Administration Protocol Clindamycin HCl 900 mg in 50 mls @ 100 mls/hr 06/15/20 13:00 06/17/20 05:30 Cleocin 900 Mg/50 Ml IV 06/17/20 12:59 100 mls/hr Q8H GRIS Administration Protocol MEROPENEM/NS 1 GRAM/100 ML 1 gram in 100 mls @ 100 mls/hr 06/16/20 13:00 06/17/20 06:35 Merrem/Ns 1 Gram/100 Ml IV 100 mls/hr Q6HR [facility] Administration Protocol Insulin Glargine 35 units 06/09/20 10:00 06/16/20 10:56 Insulin Glargine 100 Units/Ml SUB-Q Not Given QAM [facility] Insulin Human Lispro 0 unit 06/07/20 07:30 06/16/20 22:18 Insulin Lispro 100 Unit/Ml SUB-Q Not Given ACHS [facility] Protocol Insulin Human Lispro 8 unit 06/07/20 11:30 06/16/20 22:18 Insulin Lispro 100 Unit/Ml SUB-Q Not Given ACHS [facility] Lamivudine 300 mg 06/07/20 10:00 06/16/20 10:46 Lamivudine 150 Mg Tab PO 300 mg DAILY GRIS Administration Magnesium Hydroxide 30 ml 06/07/20 00:59 Magnesium Hydroxide (Mom) Oral Liqd Udc PO Q4H PRN Constipation Metoclopramide HCl 5 mg 06/10/20 14:24 06/17/20 06:36 Metoclopramide 10 Mg/2 Ml Inj IV 5 mg ACHS PRN Administration Nausea Ondansetron HCl 4 mg 06/07/20 00:59 06/16/20 03:49 Ondansetron 4 Mg/2 Ml Inj IV 4 mg Q8H PRN Administration Nausea And Vomiting Pantoprazole Sodium 40 mg 06/07/20 10:00 06/16/20 10:58 Pantoprazole 40 Mg Tab PO Not Given DAILY [facility] Sodium Chloride 10 ml 06/07/20 10:00 06/16/20 21:08 Sodium Chloride 0.9% 10 Ml Flush Syringe IV 10 ml BID GRIS Administration Sodium Chloride 10 ml 06/07/20 00:59 Sodium Chloride 0.9% 10 Ml Flush Syringe IV PRN PRN LINE FLUSH Trazodone HCl 150 mg 06/07/20 01:52 06/15/20 21:32 Trazodone 50 Mg Tab PO 150 mg QHS PRN Administration Insomnia Nutrition/Malnutrition Assess - Dietary Evaluation Nutrition/Malnutrition Findings: Nutrition Notes Start: 06/07/20 14:33 Freq: Status: Active Protocol: Document 06/15/20 12:44 CW (Rec: 06/15/20 12:48 CW [id number]) Nutrition Notes Need for Assessment generated from: MD Order Initial or Follow up Brief Note Current Diagnosis Diabetes,Sepsis,Hypertension, Hyperlipidemia Other Pertinent Diagnosis UTI, HIV, Hidradenitis, s/p debridement, Kidney Stones Current Diet Consistent CHO Subjective/Other Information Consult for ONS. Pt previously evaluated this morning during NPO status. Pt was eating 100 % of meals prior to NPO staus. D/t elevated BMI only 1 ONS needed at this time to meet needs. Percent of energy/protein needs met: 100%/100% Burn Absent Trauma Absent Current % PO Good (75-100%) Additional Notes PRO needs: 66-83 g(0.8-1g/kg AdBW 83 kg) Fluid needs: 1 mL/kcal or per MD Nutrition Intervention Change Diet Order: Continue Consistent CHO diet Add Supplement/Snack (indicate name/kcal Glucerna daily once diet /protein ) advances Provides kCal: 220 Provides Protein (gm) 10 Goal #1 Meet 75% of estimated energy and protein needs via PO and ONS Anticipated Discharge Needs: Cardiac/Consistent CHO Follow-Up By: 06/19/20 Additional Comments F/U for stable intakes and ONS tolerance
[2020-06-17] MEDS: INSULIN LISPRO 100 UNIT/ML SUB-Q SCH ×8 (09:11→22:18)
[2020-06-17] MEDS: DOLUTEGRAVIR 50 MG TAB PO SCH (09:39)
[2020-06-17] MEDS: ABACAVIR 300 MG TAB PO SCH (09:40)
[2020-06-17] MEDS: FLUCONAZOLE 200 MG 200 MG/100 ML BAG IV SCH (09:40)
[2020-06-17] MEDS: INSULIN GLARGINE 100 UNITS/ML SUB-Q SCH (10:02)
[2020-06-17] MEDS: PANTOPRAZOLE 40 MG TAB PO SCH (10:23)
[2020-06-17] MEDS: ARIPiprazole 15 MG TAB PO SCH (10:23)
[2020-06-17] MEDS: buPROPion XL 150 MG TAB PO SCH (10:24)
[2020-06-17] MEDS: HYDROcodone/ACETAMINOPHEN 5-325 MG TAB PO PRN (18:26)
[2020-06-18] MEDS: HYDROmorphone 1 MG/1 ML INJ IV PRN ×8 (02:04→21:03)
[2020-06-18] MEDS: diphenhydrAMINE 50 MG/ML VIAL IV PRN ×3 (04:44→21:02)
[2020-06-18] MEDS: MEROPENEM/NS 1 GRAM/100 ML 1 GRAM/100 ML BAG IV SCH ×3 (05:03→17:57)
[2020-06-18 05:51] LABS: Hematocrit 21.6 % (30.3-42.9); Hemoglobin 7.3 gm/dl (10.1-14.3); Mean Corpuscular HGB Conc 34 % (30-34); Mean Corpuscular Volume 99 fl (79-97); Platelet Count 258 K/mm3 (140-440); Red Blood Count 2.19 M/mm3 (3.65-5.03); Red Cell Distribution Width 14.4 % (13.2-15.2)
[2020-06-18] MEDS: HEPARIN 5,000 UNIT/1 ML VIAL SUB-Q SCH ×3 (05:59→21:02)
[2020-06-18 07:03] LABS: Calcium 8.7 mg/dL (8.4-10.2)
[2020-06-18 07:07] LABS: Total Cells Counted 100
[2020-06-18 07:08] LABS: Hypochromasia 1+
[2020-06-18 07:12] LABS: Anisocytosis Few; Platelet Estimate Consistent w Auto
[2020-06-18] MEDS: INSULIN LISPRO 100 UNIT/ML SUB-Q SCH ×8 (08:31→22:54)
[2020-06-18] MEDS: INSULIN GLARGINE 100 UNITS/ML SUB-Q SCH (09:44)
[2020-06-18] MEDS: FLUCONAZOLE 200 MG 200 MG/100 ML BAG IV SCH (10:14)
[2020-06-18] MEDS: ABACAVIR 300 MG TAB PO SCH (10:15)
[2020-06-18] MEDS: buPROPion XL 150 MG TAB PO SCH (10:15)
[2020-06-18] MEDS: DOLUTEGRAVIR 50 MG TAB PO SCH (10:15)
[2020-06-18] MEDS: ARIPiprazole 15 MG TAB PO SCH (10:15)
[2020-06-18] MEDS: PANTOPRAZOLE 40 MG TAB PO SCH (10:15)
--- NOTE | 2020-06-18 10:31 | Anesthesia Day of Surgery ---
Anesthesia Day of Surgery - Day of Surgery Patient Examined: Yes Patient H&P Reviewed: Yes Patient is NPO: Yes
[2020-06-18] MEDS ORDERED: HYDROGEN PEROXIDE 118 ML SOLUTION ONE (11:36)
[2020-06-18] MEDS ORDERED: BUPIVACAINE/PF (0.5%) 5 MG/1 ML 30 ML VIAL INFILTRATI ONE (11:36)
[2020-06-18] MEDS ORDERED: MIDAZOLAM 2 MG/2 ML INJ ONE (12:05)
[2020-06-18] MEDS ORDERED: fentaNYL 100 MCG/2 ML INJ ONE ×2 (12:07→13:05)
[2020-06-18] MEDS ORDERED: propofoL 200 MG/20 ML VIAL IV ONE ×2 (12:12→12:29)
[2020-06-18] MEDS ORDERED: KETAMINE/STERILE WATER 50 MG/ML SYRINGE ONE (12:15)
[2020-06-18] MEDS ORDERED: SODIUM CHLORIDE 0.9% IRR 1,500 ML BOTTLE IR ONE (12:36)
[2020-06-18] MEDS ORDERED: HYDROmorphone 1 MG/1 ML INJ ONE (12:58)
--- NOTE | 2020-06-18 13:02 | Operative Report ---
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 She underwent serial excisional debridement in the operating room. She was maintained on antibiotics with strict glucose control. Was recommended patient return to the operating room for reevaluation of the wound with washout and possible placement of wound VAC. All risk benefits, alternatives to surgery discussed and questions answered. Consent obtained. Procedure in detail: The patient was identified in the preoperative area, taken to the operating room and placed on the operating room table in supine position. After anesthesia was induced she was placed in low lithotomy position. The perineum was prepped and draped in usual sterile fashion timeout performed. The wound was examined and any remaining packing was removed. 2 pieces of quick clot were removed from the wound. The wound was probed and no additional packing material was seen. The majority of the wound bed was clean and pink. There was no additional drainage or abscess cavities identified. There is still periwound induration. An excisional debridement of subcutaneous slough was performed using forcep and scalpel. The wound was then irrigated with saline and hemostasis carefully ensured. Predebridement wound measurements are 19x2.5x5cm and post debridement measurements 19x2.5x5.1 cm. The periwound skin was then cleansed and dried. The wound VAC was then placed with the assistance of the client technologies analyst. 1 piece of black foam was packed into the wound. Mastisol was applied to the periwound skin. 2 additional pieces of black foam were used to bridge the VAC to the left thigh. DuoDERM was applied around the wound edges. Tegaderm dressing was then applied to secure the VAC. The VAC was assembled in the usual fashion and connected to -125 mmHg suction. All the foam compressed and there was no leak. At the end of the case, all sponge, instrument, sharp counts were correct x2. The patient was awoken from anesthesia and taken to PACU in stable condition.
[2020-06-18] MEDS ORDERED: fentaNYL 100 MCG/2 ML INJ IV ONE (13:13)
--- NOTE | 2020-06-18 13:16 | Progress Note ---
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 #Left gluteal, labial cellulitis with abscess: Has had previous surgeries. Know n to Dr. Dalal, status post I&D of her left buttock on 06/09/2020. Went back to OR on 06/13/2020, Large abscess cavity involving left labia, perineum with necrotic tissue and foul smelling purulent drainage. Concerning for jony's per d/w Dr. Dalal. Back to OR on 06/15/2020, "Unroofed left labial and gluteal abscess cavities with debridement of necrotic skin and subq tissue, minimal purulent fluid and some necrotic tissue " #Diabetes mellitus, type II: Uncontrolled #SYLWIA: renally dose abx. Improved. #HIV, follows up with Dr. oPnce. Is on Triumeq, reports excellent compliance, reports undetectable viral load. VL here undetectable, CD4 count 397 Recs: -Continue IV Meropenem -Completed clindamycin -appreciate Gen Surg follow up for additional debridements and source control -Continue PO Triumeq (as individual components: abacavir, lamivudine and dolutegravir) -continue fluconazole Rachel Junior MD [facility] O: [phone] F: [phone] Subjective Date of service: 06/18/20 Interval history: Afebrile over last 24 hours, white count 13.3 which is improved from yesterday. HIV undetectable. Went for debridement and washing of wound on the left labia and perineum with placement of wound VAC today. Objective - Exam Narrative Exam: Physical exam deferred due to PPE conservation strategy. Please refer to primary team's note. - Constitutional Vitals: Vital Signs Temp Pulse Resp BP Pulse Ox 98.6 F 89 18 151/79 95 06/18/20 11:11 06/18/20 11:12 06/18/20 11:11 06/18/20 11:11 06/17/20 22:08 Temperature -Last 24 Hours Temperature 98.6 F Temperature 99.5 F Temperature 98.2 F - Labs CBC & Chem 7: 06/18/20 04:18 06/18/20 04:18 Labs: Abnormal lab results 06/17/20 06/17/20 06/18/20 Range/Units 16:22 22:05 04:18 WBC 13.3 H (4.5-11.0) K/mm3 RBC 2.19 L (3.65-5.03) M/mm3 Hgb 7.3 L (10.1-14.3) gm/dl Hct 21.6 L (30.3-42.9) % MCV 99 H (79-97) fl MCH 33 H (28-32) pg Seg Neuts % (Manual) 82.0 H (40.0-70.0) % Seg Neutrophils # Man 10.9 H (1.8-7.7) K/mm3 Glucose (65-100) mg/dL POC Glucose 131 H 180 H (70-105) mg/dL 06/18/20 06/18/20 06/18/20 Range/Units 04:18 07:37 11:08 WBC (4.5-11.0) K/mm3 RBC (3.65-5.03) M/mm3 Hgb (10.1-14.3) gm/dl Hct (30.3-42.9) % MCV (79-97) fl MCH (28-32) pg Seg Neuts % (Manual) (40.0-70.0) % Seg Neutrophils # Man (1.8-7.7) K/mm3 Glucose 172 H (65-100) mg/dL POC Glucose 153 H 155 H (70-105) mg/dL
--- NOTE | 2020-06-18 13:39 | Progress Note ---
Assessment and Plan Assessment and plan: UTI. Right gluteal abscess/cellulitis. Sepsis. Etiology secondary to above. Diabetes mellitus type 2. Hypertension Acute kidney injury secondary to ATN now resolved Left renal calculus. Leukocytosis secondary to sepsis Anemia 06/08/2020. Continue antibiotics of Rocephin and vancomycin. ID consultation pending. Continue to monitor temperature curve. Follow-up blood and urine cultures. Continue Lantus, SSRI and Accu-Cheks. 06/09/2020. Continue antibiotics per ID recommendations. Surgery evaluated the patient and recommends incision and drainage of left gluteal abscess in OR today. Continue tight glycemic control. Increase Lantus to 35 units. 06/10/2020. Patient is s/p Incision and drainage, excisional debridement of right gluteal abscess. Surgery found 5 cm abscess cavity of the right gluteal cleft. Follow-up blood and wound cultures. Continue antibiotics per ID recommendatio ns. Tight glycemic control. Continue Lantus 35 units. 06/11/2020. Patient is POD#2 for Incision and drainage, excisional debridement of right gluteal abscess. Surgery found 5 cm abscess cavity of the right gluteal cleft. Continue IV antibiotics per ID recommendations. Tight glycemic control. Urine culture negative. Blood cultures negative x4 days. Patient still with significant fever. Patient with [place] and morphine for pain 06/12/2020; day 3 status post excisional debridement of right gluteal abscess. Surgery found 5 cm abscess cavity of the right gluteal cleft. Continue IV antibiotics per ID recommendations. Tight glycemic control. Urine culture negative. Blood cultures negative x4 days. Patient still with significant fever. Patient with [place] and morphine for pain. Continue inpatient care. There is significant swelling and tenderness of the labia majora and surrounding areas. Patient is followed by general surgery and will get in touch with Dr. simpson. 06/13/2020; patient will have another debridement today per general surgery. ID is following the patient and patient is on IV Ancef and clindamycin. Wound culture grew group A streptococcus. 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 06/14/2020; patient had incision and drainage of abscess, foreigners gangrene by general surgery yesterday. ID is following the patient and Ancef is changed to cefepime and continue with clindamycin. Patient has leukocytosis today. No fever overnight. Continue inpatient care. Will follow general surgery recommendation. Patient has history of HIV. Continue diabetic management. 06/15/2020; patient finished clindamycin and currently on cefepime, vancomycin and fluconazole. Will follow culture result. ID is following the patient. General surgery is following and will take to the OR for further drainage today. 06/16/2020; patient is on cefepime, clindamycin, fluconazole and HIV medications. Patient is still shooting fever. ID is following. Patient had multiple incision and drainage of abscess. General surgery is following and will take to the OR for further drainage today. 06/17/2020; patient is on cefepime, clindamycin, fluconazole and HIV medications. Patient is still shooting fever. ID is following. Patient had multiple incision and drainage of abscess. General surgery is following and will take her to the OR for washout of the wound and possible wound VAC placement. Patient initially refused LTAC but now she is interested in LTAC, please discuss with case management on the weekdays. Anemia of chronic illness; monitor H&H and transfuse if hemoglobin is below 7. 06/18: Patient continues with management of sepsis secondary to left gluteal, labial cellulitis with abscess is for surgery today for washout. We will continue with antibiotics. Continue to follow cultures. We will continue to monitor blood glucose and ensure adequate insulin coverage. History Interval history: Patient seen and examined for a washout procedure in the OR today. Hospitalist Physical - Physical exam Narrative exam: Not in cardiopulmonary distress. The patient is morbidly obese. Vital signs as documented. Head exam is unremarkable. No scleral icterus . Neck is without jugular venous distension, thyromegaly, or carotid bruits. Lungs are clear to auscultation. Cardiac exam reveals regular rate and Rhythm. Abdominal exam reveals normal bowel sounds, nontender, no organomegaly. Extremities are nonedematous and both femoral and pedal pulses are normal. 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 No focal weakness. Sacral decubitus ulcer. Status post incision drainage of abscess in the sacral and left labia majora area - Constitutional Vitals: Temp Pulse Resp BP Pulse Ox 98.6 F 89 12 151/79 95 06/18/20 11:11 06/18/20 11:12 06/18/20 13:35 06/18/20 11:11 06/17/20 22:08 General appearance: Present: no acute distress, well-nourished Results - Labs CBC & Chem 7: 06/18/20 04:18 06/18/20 04:18 Labs: Laboratory Last Values WBC 13.3 K/mm3 (4.5-11.0) H 06/18/20 04:18 RBC 2.19 M/mm3 (3.65-5.03) L 06/18/20 04:18 Hgb 7.3 gm/dl (10.1-14.3) L 06/18/20 04:18 Hct 21.6 % (30.3-42.9) L 06/18/20 04:18 MCV 99 fl (79-97) H 06/18/20 04:18 MCH 33 pg (28-32) H 06/18/20 04:18 MCHC 34 % (30-34) 06/18/20 04:18 RDW 14.4 % (13.2-15.2) 06/18/20 04:18 Plt Count 258 K/mm3 (140-440) 06/18/20 04:18 Lymph % (Auto) 9.8 % (13.4-35.0) L 06/17/20 04:44 [place] % (Auto) Assembler Final 06/18/20 04:18 Eos % (Auto) 1.4 % (0.0-4.3) 06/17/20 04:44 Baso % (Auto) 0.2 % (0.0-1.8) 06/17/20 04:44 Lymph # (Auto) 1.8 K/mm3 (1.2-5.4) 06/17/20 04:44 [place] # (Auto) 1.2 K/mm3 (0.0-0.8) H 06/17/20 04:44 Eos # (Auto) 0.3 K/mm3 (0.0-0.4) 06/17/20 04:44 Baso # (Auto) 0.0 K/mm3 (0.0-0.1) 06/17/20 04:44 Add Manual Diff Complete 06/18/20 04:18 Total Counted 100 06/18/20 04:18 Seg Neutrophils % Assembler Final 06/18/20 04:18 Seg Neuts % (Manual) 82.0 % (40.0-70.0) H 06/18/20 04:18 Band Neutrophils % 2.0 % 06/16/20 04:40 Lymphocytes % (Manual) 16.0 % (13.4-35.0) 06/18/20 04:18 Monocytes % (Manual) 2.0 % (0.0-7.3) 06/18/20 04:18 Eosinophils % (Manual) 1.0 % (0.0-4.3) 06/16/20 04:40 Nucleated RBC % Not Reportable 06/18/20 04:18 Seg Neutrophils # 14.7 K/mm3 (1.8-7.7) H 06/17/20 04:44 Seg Neutrophils # Man 10.9 K/mm3 (1.8-7.7) H 06/18/20 04:18 Band Neutrophils # 0.0 K/mm3 06/18/20 04:18 Abs Lymphs (Manual) 1110 cells/uL (850-3900) 06/13/20 04:57 Lymphocytes # (Manual) 2.1 K/mm3 (1.2-5.4) 06/18/20 04:18 Abs React Lymphs (Man) 0.0 K/mm3 06/18/20 04:18 Monocytes # (Manual) 0.3 K/mm3 (0.0-0.8) 06/18/20 04:18 Eosinophils # (Manual) 0.0 K/mm3 (0.0-0.4) 06/18/20 04:18 Basophils # (Manual) 0.0 K/mm3 (0.0-0.1) 06/18/20 04:18 Metamyelocytes # 0.0 K/mm3 06/18/20 04:18 Myelocytes # 0.0 K/mm3 06/18/20 04:18 Promyelocytes # 0.0 K/mm3 06/18/20 04:18 Blast Cells # 0.0 K/mm3 06/18/20 04:18 WBC Morphology Not Reportable 06/18/20 04:18 Hypersegmented Neuts Not Reportable 06/18/20 04:18 Hyposegmented Neuts Not Reportable 06/18/20 04:18 Hypogranular Neuts Not Reportable 06/18/20 04:18 Smudge Cells Not Reportable 06/18/20 04:18 Toxic Granulation Not Reportable 06/18/20 04:18 Toxic Vacuolation Not Reportable 06/18/20 04:18 Dohle Bodies Not Reportable 06/18/20 04:18 Pelger-Huet Anomaly Not Reportable 06/18/20 04:18 Mary Kay Rods Not Reportable 06/18/20 04:18 Platelet Estimate Consistent w auto 06/18/20 04:18 Clumped Platelets Not Reportable 06/18/20 04:18 Plt Clumps, EDTA Not Reportable 06/18/20 04:18 Large Platelets Not Reportable 06/18/20 04:18 Giant Platelets Not Reportable 06/18/20 04:18 Platelet Satelliting Not Reportable 06/18/20 04:18 Plt Morphology Comment Not Reportable 06/18/20 04:18 RBC Morphology Not Reportable 06/18/20 04:18 Dimorphic RBCs Not Reportable 06/18/20 04:18 Polychromasia Not Reportable 06/18/20 04:18 Hypochromasia 1+ 06/18/20 04:18 Poikilocytosis Not Reportable 06/18/20 04:18 Anisocytosis Few 06/18/20 04:18 Microcytosis Not Reportable 06/18/20 04:18 Macrocytosis Not Reportable 06/18/20 04:18 Spherocytes Not Reportable 06/18/20 04:18 Pappenheimer Bodies Not Reportable 06/18/20 04:18 Sickle Cells Not Reportable 06/18/20 04:18 Target Cells Not Reportable 06/18/20 04:18 Tear Drop Cells Not Reportable 06/18/20 04:18 Ovalocytes Not Reportable 06/18/20 04:18 Helmet Cells Not Reportable 06/18/20 04:18 [place] Bodies Not Reportable 06/18/20 04:18 [place] Rings Not Reportable 06/18/20 04:18 [place] Cells Not Reportable 06/18/20 04:18 Bite Cells Not Reportable 06/18/20 04:18 Crenated Cell Not Reportable 06/18/20 04:18 Elliptocytes Not Reportable 06/18/20 04:18 Acanthocytes (Spur) Not Reportable 06/18/20 04:18 Rouleaux Not Reportable 06/18/20 04:18 Hemoglobin C Crystals Not Reportable 06/18/20 04:18 Schistocytes Not Reportable 06/18/20 04:18 Malaria parasites Not Reportable 06/18/20 04:18 Jim Bodies Not Reportable 06/18/20 04:18 Hem Pathologist Commnt No 06/18/20 04:18 PT 12.9 Sec. (12.2-14.9) 06/08/20 04:00 INR 0.99 (0.87-1.13) 06/08/20 04:00 Sodium 142 mmol/L (137-145) D 06/18/20 04:18 Potassium 4.1 mmol/L (3.6-5.0) 06/18/20 04:18 Chloride 104.0 mmol/L (98-107) 06/18/20 04:18 Carbon Dioxide 23 mmol/L (22-30) 06/18/20 04:18 Anion Gap 19 mmol/L 06/18/20 04:18 BUN 12 mg/dL (7-17) 06/18/20 04:18 Creatinine 1.2 mg/dL (0.6-1.2) 06/18/20 04:18 Estimated GFR 50 ml/min 06/18/20 04:18 BUN/Creatinine Ratio 10 % 06/18/20 04:18 Glucose 172 mg/dL (65-100) H 06/18/20 04:18 POC Glucose 152 mg/dL (70-105) H 06/18/20 13:11 Hemoglobin A1c 12.0 % (4-6) H 06/09/20 04:43 Lactic Acid 1.70 mmol/L (0.7-2.0) 06/06/20 22:34 Calcium 8.7 mg/dL (8.4-10.2) 06/18/20 04:18 Total Bilirubin 0.50 mg/dL (0.1-1.2) 06/06/20 19:59 AST 15 units/L (5-40) 06/06/20 19:59 ALT 29 units/L (7-56) 06/06/20 19:59 Alkaline Phosphatase 115 units/L (35-129) 06/06/20 19:59 Total Protein 6.6 g/dL (6.3-8.2) 06/06/20 19:59 Albumin 3.7 g/dL (3.9-5) L 06/06/20 19:59 Albumin/Globulin Ratio 1.3 % 06/06/20 19:59 HCG, Qual Negative (Negative) 06/06/20 23:19 Urine Color Yellow (Yellow) 06/06/20 Unknown Urine Turbidity Slightly-cloudy (Clear) 06/06/20 Unknown Urine pH 5.0 (5.0-7.0) 06/06/20 Unknown Ur Specific [place] 1.023 (1.003-1.030) 06/06/20 Unknown Urine Protein >500 mg/dL (Negative) 06/06/20 Unknown Urine Glucose (UA) >=500 mg/dL (Negative) 06/06/20 Unknown Urine Ketones Neg mg/dL (Negative) 06/06/20 Unknown Urine Blood Sm (Negative) 06/06/20 Unknown Urine Nitrite Neg (Negative) 06/06/20 Unknown Urine Bilirubin Neg (Negative) 06/06/20 Unknown Urine Urobilinogen < 2.0 mg/dL (<2.0) 06/06/20 Unknown Ur Leukocyte Esterase Neg (Negative) 06/06/20 Unknown Urine WBC (Auto) 16.0 /HPF (0.0-6.0) H 06/06/20 Unknown Urine RBC (Auto) 8.0 /HPF (0.0-6.0) 06/06/20 Unknown U Epithel Cells (Auto) 5.0 /HPF (0-13.0) 06/06/20 Unknown Urine Bacteria (Auto) 1+ /HPF (Negative) 06/06/20 Unknown Urine Mucus Few /HPF 06/06/20 Unknown Vancomycin Trough 14.1 ug/mL (5.0-20.0) 06/15/20 18:29 Lymph Enumerat CD4/CD8 1.02 (0.86-5.00) 06/13/20 04:57 % CD3 Cells 73 % (57-85) 06/13/20 04:57 Absolute CD3 Count 813 cells/uL (840-3060) L 06/13/20 04:57 % CD4 Cells 37 % (30-61) 06/13/20 04:57 Absolute CD4 Count 397 cells/uL (490-1740) L 06/13/20 04:57 % CD8 Cells 36 % (12-42) 06/13/20 04:57 Absolute CD8 Count 388 cells/uL (180-1170) 06/13/20 04:57 % CD19 Cells 24 % (6-29) 06/13/20 04:57 Absolute CD19 Count 279 cells/uL (110-660) 06/13/20 04:57 HIV-1 RNA PCR copies/ml <20 Copies/mL H 06/13/20 04:57 HIV-1 RNA (PCR) log <1.30 Log cps/mL H 06/13/20 04:57 Microbiology: Microbiology 06/13/20 Unknown Aspirate Anaerobic Culture - Final 06/13/20 Unknown Labia Wound Culture - Final [place]/IV: Voiding Method Toilet Active Medications - Current Medications Current Medications: Generic Name Dose Route Start Last Admin Trade Name Freq PRN Reason Stop Dose Admin Abacavir Sulfate 600 mg 06/07/20 10:00 06/18/20 10:15 Abacavir 300 Mg Tab PO Not Given DAILY GRIS Acetaminophen 650 mg 06/07/20 00:59 06/16/20 17:46 Acetaminophen 325 Mg Tab PO 650 mg Q4H PRN Administration Pain MILD(1-3)/Fever >100.5/[place] Hydrocodone Bitart/Acetaminophen 1 each 06/09/20 11:00 06/17/20 18:26 Hydrocodone/Acetaminophen 5-325 Mg Tab PO 1 each Q4H PRN Administration Pain, Moderate (4-6) Aripiprazole 15 mg 06/07/20 10:00 06/18/20 10:15 Aripiprazole 15 Mg Tab PO Not Given QDAY [facility] Bupropion HCl 150 mg 06/07/20 10:00 06/18/20 10:15 Bupropion Xl 150 Mg Tab PO Not Given QDAY [facility] Dextrose 50 ml 06/07/20 00:59 Dextrose 50% In Water (25gm) 50 Ml Syringe IV Q30MIN PRN Hypoglycemia Protocol Diphenhydramine HCl 25 mg 06/07/20 08:16 06/18/20 10:09 Diphenhydramine 50 Mg/Ml Vial IV 25 mg Q6H PRN Administration Itching Heparin Sodium (Porcine) 5,000 unit 06/07/20 06:00 06/18/20 05:59 Heparin 5,000 Unit/1 Ml Vial SUB-Q Not Given Q8HR GRIS Hydromorphone HCl 1 mg 06/15/20 10:42 06/18/20 08:39 Hydromorphone 1 Mg/1 Ml Inj IV 1 mg Q3H PRN Administration Pain , Severe (7-10) Hydromorphone HCl 0.5 mg 06/18/20 10:31 06/18/20 13:35 Hydromorphone 1 Mg/1 Ml Inj IV 06/18/20 23:00 0.5 mg Q10MIN PRN Administration Pain , Severe (7-10) Fluconazole 200 mg in 100 mls @ 100 mls/hr 06/11/20 14:00 06/18/20 10:14 Diflucan IV Not Given Q24HR [facility] Protocol MEROPENEM/NS 1 GRAM/100 ML 1 gram in 100 mls @ 100 mls/hr 06/16/20 13:00 06/18/20 05:03 Merrem/Ns 1 Gram/100 Ml IV 100 mls/hr Q6HR [facility] Administration Protocol Insulin Glargine 35 units 06/09/20 10:00 06/18/20 09:44 Insulin Glargine 100 Units/Ml SUB-Q Not Given QAM [facility] Insulin Human Lispro 0 unit 06/07/20 07:30 06/18/20 11:37 Insulin Lispro 100 Unit/Ml SUB-Q Not Given ACHS [facility] Protocol Insulin Human Lispro 8 unit 06/07/20 11:30 06/18/20 11:37 Insulin Lispro 100 Unit/Ml SUB-Q Not Given ACHS [facility] Lamivudine 300 mg 06/07/20 10:00 06/18/20 10:15 Lamivudine 150 Mg Tab PO Not Given DAILY [facility] Magnesium Hydroxide 30 ml 06/07/20 00:59 Magnesium Hydroxide (Mom) Oral Liqd Udc PO Q4H PRN Constipation Metoclopramide HCl 5 mg 06/10/20 14:24 06/17/20 06:36 Metoclopramide 10 Mg/2 Ml Inj IV 5 mg ACHS PRN Administration Nausea Ondansetron HCl 4 mg 06/07/20 00:59 06/16/20 03:49 Ondansetron 4 Mg/2 Ml Inj IV 4 mg Q8H PRN Administration Nausea And Vomiting Pantoprazole Sodium 40 mg 06/07/20 10:00 06/18/20 10:15 Pantoprazole 40 Mg Tab PO Not Given DAILY [facility] Sodium Chloride 10 ml 06/07/20 10:00 06/18/20 10:10 Sodium Chloride 0.9% 10 Ml Flush Syringe IV 10 ml BID GRIS Administration Sodium Chloride 10 ml 06/07/20 00:59 Sodium Chloride 0.9% 10 Ml Flush Syringe IV PRN PRN LINE FLUSH Trazodone HCl 150 mg 06/07/20 01:52 06/15/20 21:32 Trazodone 50 Mg Tab PO 150 mg QHS PRN Administration Insomnia Nutrition/Malnutrition Assess - Dietary Evaluation Nutrition/Malnutrition Findings: Nutrition Notes Start: 06/07/20 14:33 Freq: Status: Active Protocol: Document 06/15/20 12:44 CW (Rec: 06/15/20 12:48 CW [id number]) Nutrition Notes Need for Assessment generated from: MD Order Initial or Follow up Brief Note Current Diagnosis Diabetes,Sepsis,Hypertension, Hyperlipidemia Other Pertinent Diagnosis UTI, HIV, Hidradenitis, s/p debridement, Kidney Stones Current Diet Consistent CHO Subjective/Other Information Consult for ONS. Pt previously evaluated this morning during NPO status. Pt was eating 100 % of meals prior to NPO staus. D/t elevated BMI only 1 ONS needed at this time to meet needs. Percent of energy/protein needs met: 100%/100% Burn Absent Trauma Absent Current % PO Good (75-100%) Additional Notes PRO needs: 66-83 g(0.8-1g/kg AdBW 83 kg) Fluid needs: 1 mL/kcal or per MD Nutrition Intervention Change Diet Order: Continue Consistent CHO diet Add Supplement/Snack (indicate name/kcal Glucerna daily once diet /protein ) advances Provides kCal: 220 Provides Protein (gm) 10 Goal #1 Meet 75% of estimated energy and protein needs via PO and ONS Anticipated Discharge Needs: Cardiac/Consistent CHO Follow-Up By: 06/19/20 Additional Comments F/U for stable intakes and ONS tolerance
[2020-06-18] MEDS ORDERED: diphenhydrAMINE 50 MG/ML VIAL IV ONE (14:00)
[2020-06-18] MEDS: HYDROcodone/ACETAMINOPHEN 5-325 MG TAB PO PRN (16:50)
[2020-06-19] MEDS: HYDROmorphone 1 MG/1 ML INJ IV PRN ×7 (00:04→22:16)
[2020-06-19] MEDS: METOCLOPRAMIDE 10 MG/2 ML INJ IV PRN (00:04)
[2020-06-19] MEDS: MEROPENEM/NS 1 GRAM/100 ML 1 GRAM/100 ML BAG IV SCH ×4 (00:18→17:20)
[2020-06-19] MEDS: HEPARIN 5,000 UNIT/1 ML VIAL SUB-Q SCH ×3 (06:13→22:11)
[2020-06-19] MEDS: diphenhydrAMINE 50 MG/ML VIAL IV PRN ×3 (06:20→22:17)
[2020-06-19] MEDS: INSULIN LISPRO 100 UNIT/ML SUB-Q SCH ×8 (08:19→22:19)
[2020-06-19] MEDS ORDERED: MAGNESIUM HYDROXIDE (MOM) ORAL LIQD UDC PO NR (09:30)
[2020-06-19] MEDS: DOCUSATE SODIUM 100 MG CAP PO SCH ×3 (09:33→22:11)
[2020-06-19] MEDS: ARIPiprazole 15 MG TAB PO SCH (09:34)
[2020-06-19] MEDS: ABACAVIR 300 MG TAB PO SCH (09:34)
[2020-06-19] MEDS: PANTOPRAZOLE 40 MG TAB PO SCH (09:34)
[2020-06-19] MEDS: FLUCONAZOLE 200 MG 200 MG/100 ML BAG IV SCH (09:34)
[2020-06-19] MEDS: buPROPion XL 150 MG TAB PO SCH (09:34)
[2020-06-19] MEDS: DOLUTEGRAVIR 50 MG TAB PO SCH (09:35)
[2020-06-19] MEDS: INSULIN GLARGINE 100 UNITS/ML SUB-Q SCH (09:35)
--- NOTE | 2020-06-19 10:06 | Progress Note ---
Assessment and Plan 40 yo F s/p 1. Excisional debridement, washout of wound of left labia/perineum with placement of wound vac, POD 1 2. 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 Incision and drainage, excisional debridement of left gluteal abscess 06/09/20 Pt stable. Afebrile. Wound vac working well and pt tolerating. Plan: 1. Consistent carb diet with supplements 2. Wound vac to -125mmHg suction continuous 3. Vac change on - will attempt at bedside. If unable to perform at bedside, will add patient to OR for vac change 4. abx per ID 5. DC planning to home with C. Pt having a family issue and cannot go to LTAC. Will ask CM to order wound vac for home 6. DC planning or Thursday depending on how patient tolerates dressing change Thank you for this consultation. Please call with any questions or concerns. Evaluation and treatment of this patient was during the time of the national and state emergency arising from COVID19 coronavirus pandemic. Treatment and procedures performed meet the current and available best practice and guidelines for patient during the COVID pandemic. Subjective Date of service: 06/19/20 Narrative: Pt seen and examined. No acute complaints. Afebrile x24 hr Objective Vital Signs - 12hr 06/18/20 06/19/20 23:55 05:19 Temperature 99.8 F H 99.7 F H Pulse Rate 97 H 94 H Respiratory 20 20 Rate Blood Pressure 160/80 152/72 O2 Sat by Pulse 96 95 Oximetry - General physical appearance Narrative Exam: Gen: AAox3. NAD CV: s1, S2+ Resp: even and unlabored Ext: no c/c/e : Vac dressing in place - no leak, good seal - Labs 06/18/20 04:18 06/18/20 04:18
--- NOTE | 2020-06-19 12:24 | Progress Note ---
Assessment and Plan Assessment and plan: Patient is a 40-year-old female with known history of hypertension and diabetes mellitus presenting to the emergency room today complaining of bilateral flank pain and suprapubic pain which has been ongoing for the past 2 to 3 days. She has also been having fever, nausea and vomiting and also reported dysuria and increased frequency of urination. She denies any chest pain or shortness of breath, no headache or dizziness. She denies any hematuria. Patient is known to be noncompliant with her medications. Upon arrival in the emergency room, patient was found to be febrile and tachycardic. Work-up reveals urinalysis. CT scan of the abdomen and pelvis reveals left kidney stone. Patient has been started on empiric IV antibiotics for UTI with accompanying sepsis. Acute cystitis Right gluteal abscess/cellulitis. Sepsis. Etiology secondary to above. Diabetes mellitus type 2. Hypertension Acute kidney injury secondary to ATN now resolved Left renal calculus. Leukocytosis secondary to sepsis Anemia 06/08/2020. Continue antibiotics of Rocephin and vancomycin. ID consultation pending. Continue to monitor temperature curve. Follow-up blood and urine cultures. Continue Lantus, SSRI and Accu-Cheks. 06/09/2020. Continue antibiotics per ID recommendations. Surgery evaluated the patient and recommends incision and drainage of left gluteal abscess in OR today. Continue tight glycemic control. Increase Lantus to 35 units. 06/10/2020. Patient is s/p Incision and drainage, excisional debridement of right gluteal abscess. Surgery found 5 cm abscess cavity of the right gluteal cleft. Follow-up blood and wound cultures. Continue antibiotics per ID recommendations. Tight glycemic control. Continue Lantus 35 units. 06/11/2020. Patient is POD#2 for Incision and drainage, excisional debridement of right gluteal abscess. Surgery found 5 cm abscess cavity of the right gluteal cleft. Continue IV antibiotics per ID recommendations. Tight glycemic control. Urine culture negative. Blood cultures negative x4 days. Patient still with significant fever. Patient with Ledbetter and morphine for pain 06/12/2020; day 3 status post excisional debridement of right gluteal abscess. Surgery found 5 cm abscess cavity of the right gluteal cleft. Continue IV antibiotics per ID recommendations. Tight glycemic control. Urine culture negative. Blood cultures negative x4 days. Patient still with significant fever. Patient with Ledbetter and morphine for pain. Continue inpatient care. There is significant swelling and tenderness of the labia majora and surrounding areas. Patient is followed by general surgery and will get in touch with Dr. simpson. 06/13/2020; patient will have another debridement today per general surgery. ID is following the patient and patient is on IV Ancef and clindamycin. Wound culture grew group A streptococcus. 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 06/14/2020; patient had incision and drainage of abscess, foreigners gangrene by general surgery yesterday. ID is following the patient and Ancef is changed to cefepime and continue with clindamycin. Patient has leukocytosis today. No fever overnight. Continue inpatient care. Will follow general surgery recommendation. Patient has history of HIV. Continue diabetic management. 06/15/2020; patient finished clindamycin and currently on cefepime, vancomycin and fluconazole. Will follow culture result. ID is following the patient. General surgery is following and will take to the OR for further drainage today. 06/16/2020; patient is on cefepime, clindamycin, fluconazole and HIV medications. Patient is still shooting fever. ID is following. Patient had multiple incision and drainage of abscess. General surgery is following and will take to the OR for further drainage today. 06/17/2020; patient is on cefepime, clindamycin, fluconazole and HIV medications. Patient is still shooting fever. ID is following. Patient had multiple incision and drainage of abscess. General surgery is following and will take her to the OR for washout of the wound and possible wound VAC placement. Patient initially refused LTAC but now she is interested in LTAC, please discuss with case management on the weekdays. Anemia of chronic illness; monitor H&H and transfuse if hemoglobin is below 7. 06/18: Patient continues with management of sepsis secondary to left gluteal, labial cellulitis with abscess is for surgery today for washout. We will continue with antibiotics. Continue to follow cultures. We will continue to monitor blood glucose and ensure adequate insulin coverage. 06/19: Patient underwent: 1. Excisional debridement, washout of wound of left labia/perineum with placement of wound vac, POD 1;2. 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 Incision and drainage, excisional debridement of left gluteal abscess 06/09/20 She is doing well clinically. Continues with wound VAC. Surgery plans to change wound VAC on and will attempt to be done at bedside. Patient will continue with antibiotics anticipation for discharge per surgeon with home health will be or Thursday. Continue to address pain medications. History Interval history: Patient seen and examined reports some uncomfortable pain but otherwise no distress. Denies nausea vomiting. Hospitalist Physical - Physical exam Narrative exam: VITAL SIGNS: Reviewed. GENERAL: The patient appears normally developed, Vital signs as documented. HEAD: No signs of head trauma. EYES: Pupils are equal. Extraocular motions intact. EARS: Hearing grossly intact. MOUTH: Oropharynx is normal. NECK: No adenopathy, no JVD. CHEST: Chest with clear breath sounds bilaterally. No wheezes, rales, or rho nchi. CARDIAC: Regular rate and rhythm. S1 and S2, without murmurs, gallops, or rubs. VASCULAR: No Edema. Peripheral pulses normal and equal in all extremities. ABDOMEN: Soft, non tender and non distended. No rebound or guarding, and no masses palpated. Bowel Sounds normal. MUSCULOSKELETAL: Good range of motion of all major joints. Extremities without clubbing, cyanosis or edema. NEUROLOGIC EXAM: Alert and oriented x 3 No focal sensory or strength deficits. Speech normal. Follows commands. PSYCHIATRIC: Mood normal. SKIN: Multiple skin tattoos detail exam as documented in skin assessment, Sacral decubitus ulcer. Status post incision drainage of abscess in the sacral and left labia majora area - Constitutional Vitals: Temp Pulse Resp BP Pulse Ox 99.7 F H 94 H 20 152/72 95 06/19/20 05:19 06/19/20 05:19 06/19/20 05:19 06/19/20 05:19 06/19/20 05:19 General appearance: Present: no acute distress, well-nourished Results - Labs CBC & Chem 7: 06/18/20 04:18 06/18/20 04:18 Labs: Laboratory Last Values WBC 13.3 K/mm3 (4.5-11.0) H 06/18/20 04:18 RBC 2.19 M/mm3 (3.65-5.03) L 06/18/20 04:18 Hgb 7.3 gm/dl (10.1-14.3) L 06/18/20 04:18 Hct 21.6 % (30.3-42.9) L 06/18/20 04:18 MCV 99 fl (79-97) H 06/18/20 04:18 MCH 33 pg (28-32) H 06/18/20 04:18 MCHC 34 % (30-34) 06/18/20 04:18 RDW 14.4 % (13.2-15.2) 06/18/20 04:18 Plt Count 258 K/mm3 (140-440) 06/18/20 04:18 Lymph % (Auto) 9.8 % (13.4-35.0) L 06/17/20 04:44 Hamilton % (Auto) Criminal Justice Lawyer 06/18/20 04:18 Eos % (Auto) 1.4 % (0.0-4.3) 06/17/20 04:44 Baso % (Auto) 0.2 % (0.0-1.8) 06/17/20 04:44 Lymph # (Auto) 1.8 K/mm3 (1.2-5.4) 06/17/20 04:44 Hamilton # (Auto) 1.2 K/mm3 (0.0-0.8) H 06/17/20 04:44 Eos # (Auto) 0.3 K/mm3 (0.0-0.4) 06/17/20 04:44 Baso # (Auto) 0.0 K/mm3 (0.0-0.1) 06/17/20 04:44 Add Manual Diff Complete 06/18/20 04:18 Total Counted 100 06/18/20 04:18 Seg Neutrophils % Criminal Justice Lawyer 06/18/20 04:18 Seg Neuts % (Manual) 82.0 % (40.0-70.0) H 06/18/20 04:18 Band Neutrophils % 2.0 % 06/16/20 04:40 Lymphocytes % (Manual) 16.0 % (13.4-35.0) 06/18/20 04:18 Monocytes % (Manual) 2.0 % (0.0-7.3) 06/18/20 04:18 Eosinophils % (Manual) 1.0 % (0.0-4.3) 06/16/20 04:40 Nucleated RBC % Not Reportable 06/18/20 04:18 Seg Neutrophils # 14.7 K/mm3 (1.8-7.7) H 06/17/20 04:44 Seg Neutrophils # Man 10.9 K/mm3 (1.8-7.7) H 06/18/20 04:18 Band Neutrophils # 0.0 K/mm3 06/18/20 04:18 Abs Lymphs (Manual) 1110 cells/uL (850-3900) 06/13/20 04:57 Lymphocytes # (Manual) 2.1 K/mm3 (1.2-5.4) 06/18/20 04:18 Abs React Lymphs (Man) 0.0 K/mm3 06/18/20 04:18 Monocytes # (Manual) 0.3 K/mm3 (0.0-0.8) 06/18/20 04:18 Eosinophils # (Manual) 0.0 K/mm3 (0.0-0.4) 06/18/20 04:18 Basophils # (Manual) 0.0 K/mm3 (0.0-0.1) 06/18/20 04:18 Metamyelocytes # 0.0 K/mm3 06/18/20 04:18 Myelocytes # 0.0 K/mm3 06/18/20 04:18 Promyelocytes # 0.0 K/mm3 06/18/20 04:18 Blast Cells # 0.0 K/mm3 06/18/20 04:18 WBC Morphology Not Reportable 06/18/20 04:18 Hypersegmented Neuts Not Reportable 06/18/20 04:18 Hyposegmented Neuts Not Reportable 06/18/20 04:18 Hypogranular Neuts Not Reportable 06/18/20 04:18 Smudge Cells Not Reportable 06/18/20 04:18 Toxic Granulation Not Reportable 06/18/20 04:18 Toxic Vacuolation Not Reportable 06/18/20 04:18 Dohle Bodies Not Reportable 06/18/20 04:18 Pelger-Huet Anomaly Not Reportable 06/18/20 04:18 Mary Kay Rods Not Reportable 06/18/20 04:18 Platelet Estimate Consistent w auto 06/18/20 04:18 Clumped Platelets Not Reportable 06/18/20 04:18 Plt Clumps, EDTA Not Reportable 06/18/20 04:18 Large Platelets Not Reportable 06/18/20 04:18 Giant Platelets Not Reportable 06/18/20 04:18 Platelet Satelliting Not Reportable 06/18/20 04:18 Plt Morphology Comment Not Reportable 06/18/20 04:18 RBC Morphology Not Reportable 06/18/20 04:18 Dimorphic RBCs Not Reportable 06/18/20 04:18 Polychromasia Not Reportable 06/18/20 04:18 Hypochromasia 1+ 06/18/20 04:18 Poikilocytosis Not Reportable 06/18/20 04:18 Anisocytosis Few 06/18/20 04:18 Microcytosis Not Reportable 06/18/20 04:18 Macrocytosis Not Reportable 06/18/20 04:18 Spherocytes Not Reportable 06/18/20 04:18 Pappenheimer Bodies Not Reportable 06/18/20 04:18 Sickle Cells Not Reportable 06/18/20 04:18 Target Cells Not Reportable 06/18/20 04:18 Tear Drop Cells Not Reportable 06/18/20 04:18 Ovalocytes Not Reportable 06/18/20 04:18 Helmet Cells Not Reportable 06/18/20 04:18 [place] Bodies Not Reportable 06/18/20 04:18 Burdine Rings Not Reportable 06/18/20 04:18 Karla Cells Not Reportable 06/18/20 04:18 Bite Cells Not Reportable 06/18/20 04:18 Crenated Cell Not Reportable 06/18/20 04:18 Elliptocytes Not Reportable 06/18/20 04:18 Acanthocytes (Spur) Not Reportable 06/18/20 04:18 Rouleaux Not Reportable 06/18/20 04:18 Hemoglobin C Crystals Not Reportable 06/18/20 04:18 Schistocytes Not Reportable 06/18/20 04:18 Malaria parasites Not Reportable 06/18/20 04:18 Jim Bodies Not Reportable 06/18/20 04:18 Hem Pathologist Commnt No 06/18/20 04:18 PT 12.9 Sec. (12.2-14.9) 06/08/20 04:00 INR 0.99 (0.87-1.13) 06/08/20 04:00 Sodium 142 mmol/L (137-145) D 06/18/20 04:18 Potassium 4.1 mmol/L (3.6-5.0) 06/18/20 04:18 Chloride 104.0 mmol/L (98-107) 06/18/20 04:18 Carbon Dioxide 23 mmol/L (22-30) 06/18/20 04:18 Anion Gap 19 mmol/L 06/18/20 04:18 BUN 12 mg/dL (7-17) 06/18/20 04:18 Creatinine 1.2 mg/dL (0.6-1.2) 06/18/20 04:18 Estimated GFR 50 ml/min 06/18/20 04:18 BUN/Creatinine Ratio 10 % 06/18/20 04:18 Glucose 172 mg/dL (65-100) H 06/18/20 04:18 POC Glucose 164 mg/dL (70-105) H 06/18/20 21:46 Hemoglobin A1c 12.0 % (4-6) H 06/09/20 04:43 Lactic Acid 1.70 mmol/L (0.7-2.0) 06/06/20 22:34 Calcium 8.7 mg/dL (8.4-10.2) 06/18/20 04:18 Total Bilirubin 0.50 mg/dL (0.1-1.2) 06/06/20 19:59 AST 15 units/L (5-40) 06/06/20 19:59 ALT 29 units/L (7-56) 06/06/20 19:59 Alkaline Phosphatase 115 units/L (35-129) 06/06/20 19:59 Total Protein 6.6 g/dL (6.3-8.2) 06/06/20 19:59 Albumin 3.7 g/dL (3.9-5) L 06/06/20 19:59 Albumin/Globulin Ratio 1.3 % 06/06/20 19:59 HCG, Qual Negative (Negative) 06/06/20 23:19 Urine Color Yellow (Yellow) 06/06/20 Unknown Urine Turbidity Slightly-cloudy (Clear) 06/06/20 Unknown Urine pH 5.0 (5.0-7.0) 06/06/20 Unknown Ur Specific Karval 1.023 (1.003-1.030) 06/06/20 Unknown Urine Protein >500 mg/dL (Negative) 06/06/20 Unknown Urine Glucose (UA) >=500 mg/dL (Negative) 06/06/20 Unknown Urine Ketones Neg mg/dL (Negative) 06/06/20 Unknown Urine Blood Sm (Negative) 06/06/20 Unknown Urine Nitrite Neg (Negative) 06/06/20 Unknown Urine Bilirubin Neg (Negative) 06/06/20 Unknown Urine Urobilinogen < 2.0 mg/dL (<2.0) 06/06/20 Unknown Ur Leukocyte Esterase Neg (Negative) 06/06/20 Unknown Urine WBC (Auto) 16.0 /HPF (0.0-6.0) H 06/06/20 Unknown Urine RBC (Auto) 8.0 /HPF (0.0-6.0) 06/06/20 Unknown U Epithel Cells (Auto) 5.0 /HPF (0-13.0) 06/06/20 Unknown Urine Bacteria (Auto) 1+ /HPF (Negative) 06/06/20 Unknown Urine Mucus Few /HPF 06/06/20 Unknown Vancomycin Trough 14.1 ug/mL (5.0-20.0) 06/15/20 18:29 Lymph Enumerat CD4/CD8 1.02 (0.86-5.00) 06/13/20 04:57 % CD3 Cells 73 % (57-85) 06/13/20 04:57 Absolute CD3 Count 813 cells/uL (840-3060) L 06/13/20 04:57 % CD4 Cells 37 % (30-61) 06/13/20 04:57 Absolute CD4 Count 397 cells/uL (490-1740) L 06/13/20 04:57 % CD8 Cells 36 % (12-42) 06/13/20 04:57 Absolute CD8 Count 388 cells/uL (180-1170) 06/13/20 04:57 % CD19 Cells 24 % (6-29) 06/13/20 04:57 Absolute CD19 Count 279 cells/uL (110-660) 06/13/20 04:57 HIV-1 RNA PCR copies/ml <20 Copies/mL H 06/13/20 04:57 HIV-1 RNA (PCR) log <1.30 Log cps/mL H 06/13/20 04:57 Perry/IV: Voiding Method Toilet Active Medications - Current Medications Current Medications: Generic Name Dose Route Start Last Admin Trade Name Freq PRN Reason Stop Dose Admin Abacavir Sulfate 600 mg 06/07/20 10:00 06/19/20 09:34 Abacavir 300 Mg Tab PO 600 mg DAILY GRIS Administration Acetaminophen 650 mg 06/07/20 00:59 06/16/20 17:46 Acetaminophen 325 Mg Tab PO 650 mg Q4H PRN Administration Pain MILD(1-3)/Fever >100.5/CHAVARRIA Hydrocodone Bitart/Acetaminophen 1 each 06/09/20 11:00 06/18/20 16:50 Hydrocodone/Acetaminophen 5-325 Mg Tab PO 1 each Q4H PRN Administration Pain, Moderate (4-6) Aripiprazole 15 mg 06/07/20 10:00 06/19/20 09:34 Aripiprazole 15 Mg Tab PO 15 mg QDAY GRIS Administration Bupropion HCl 150 mg 06/07/20 10:00 06/19/20 09:34 Bupropion Xl 150 Mg Tab PO 150 mg QDAY GRIS Administration Dextrose 50 ml 06/07/20 00:59 Dextrose 50% In Water (25gm) 50 Ml Syringe IV Q30MIN PRN Hypoglycemia Protocol Diphenhydramine HCl 25 mg 06/07/20 08:16 06/19/20 12:19 Diphenhydramine 50 Mg/Ml Vial IV 25 mg Q6H PRN Administration Itching Docusate Sodium 100 mg 06/19/20 10:00 06/19/20 09:33 Docusate Sodium 100 Mg Cap PO 100 mg BID GRIS Administration Heparin Sodium (Porcine) 5,000 unit 06/07/20 06:00 06/19/20 06:13 Heparin 5,000 Unit/1 Ml Vial SUB-Q Not Given Q8HR GRIS Hydromorphone HCl 0.5 mg 06/19/20 09:07 06/19/20 12:19 Hydromorphone 1 Mg/1 Ml Inj IV 0.5 mg Q3H PRN Administration Pain , Severe (7-10) Fluconazole 200 mg in 100 mls @ 100 mls/hr 06/11/20 14:00 06/19/20 09:34 Diflucan IV 100 mls/hr Q24HR GRIS Administration Protocol MEROPENEM/NS 1 GRAM/100 ML 1 gram in 100 mls @ 100 mls/hr 06/16/20 13:00 06/19/20 12:20 Merrem/Ns 1 Gram/100 Ml IV 100 mls/hr Q6HR GRIS Administration Protocol Insulin Glargine 35 units 06/09/20 10:00 06/19/20 09:35 Insulin Glargine 100 Units/Ml SUB-Q 35 units QAM GRIS Administration Insulin Human Lispro 0 unit 06/07/20 07:30 06/19/20 12:03 Insulin Lispro 100 Unit/Ml SUB-Q Not Given ACHS GRIS Protocol Insulin Human Lispro 8 unit 06/07/20 11:30 06/19/20 12:19 Insulin Lispro 100 Unit/Ml SUB-Q 8 unit ACHS GRIS Administration Lamivudine 300 mg 06/07/20 10:00 06/19/20 09:35 Lamivudine 150 Mg Tab PO 300 mg DAILY GIRS Administration Metoclopramide HCl 5 mg 06/10/20 14:24 06/19/20 00:04 Metoclopramide 10 Mg/2 Ml Inj IV 5 mg ACHS PRN Administration Nausea Ondansetron HCl 4 mg 06/07/20 00:59 06/16/20 03:49 Ondansetron 4 Mg/2 Ml Inj IV 4 mg Q8H PRN Administration Nausea And Vomiting Pantoprazole Sodium 40 mg 06/07/20 10:00 06/19/20 09:34 Pantoprazole 40 Mg Tab PO 40 mg DAILY GRIS Administration Sodium Chloride 10 ml 06/07/20 10:00 06/19/20 09:36 Sodium Chloride 0.9% 10 Ml Flush Syringe IV 10 ml BID GRIS Administration Sodium Chloride 10 ml 06/07/20 00:59 Sodium Chloride 0.9% 10 Ml Flush Syringe IV PRN PRN LINE FLUSH Trazodone HCl 150 mg 06/07/20 01:52 06/15/20 21:32 Trazodone 50 Mg Tab PO 150 mg QHS PRN Administration Insomnia Nutrition/Malnutrition Assess - Dietary Evaluation Nutrition/Malnutrition Findings: Nutrition Notes Start: 06/07/20 14:33 Freq: Status: Active Protocol: Document 06/19/20 10:57 AB (Rec: 06/19/20 11:07 AB [id number]) Co-Sign 06/19/20 10:57 MK Nutrition Notes Initial or Follow up Reassessment Current Diagnosis Diabetes,Sepsis,Hypertension, Hyperlipidemia Other Pertinent Diagnosis UTI, HIV, cellulitis, abcess, L renal calculus, anemia, Jony's gangrene Current Diet Consistent CHO Labs/Tests 06/18 POC BG 164 Pertinent Medications Humalog Merrem/NS 1 g/100 NC at 100 ml /hr Reglan Height 5 ft 3 in Weight 126 kg [place] Body Weight (kg) 52.27 BMI 49.1 Weight change and time frame 3% wt increase in 4 days Weight Status Morbidly Obese Subjective/Other Information F/U for stable intakes and ONS tolerance. Pt reports that her appetite fluctuates, eating 50-100% of meals. Pt ate 100% of breakfast this AM. Pt reports tolerating ONS. pt had procedure of wash out wound and wound vac placed . Percent of energy/protein needs met: 129%/138% (meal intake & ONS) Burn Absent Trauma Absent GI Symptoms None Current % PO Other Minimum of two criteria No physical signs of malnutrition #2 Nutrition Diagnosis Inadequate oral intake As Evidenced by Signs and Symptoms Pt meeting 129%/138% of energy /protein needs via consistent CHO diet and daily ONS. Diagnosis Progress(for reassessment Improved documentation) Is patient on ventilator? No Is Patient Ambulatory and/or Out of Bed Yes REE-([facility]-ambulatory/OOB) [ 2475.369 [id number]] Kcal/Kg value to use for calculation 14 Approximate Energy Requirements Using 1764 kcal/Kg Calculation Used for Recommendations Kcal/kg Additional Notes PRO needs: 66-83 g(0.8-1g/kg AdBW 83 kg) Fluid needs: 1 mL/kcal or per MD Nutrition Intervention Change Diet Order: Continue Consistent CHO diet Add Supplement/Snack (indicate name/kcal D/C /protein ) Goal #1 Meet 75% of estimated energy and protein needs via PO. Anticipated Discharge Needs: Cardiac/Consistent CHO Follow-Up By: 06/22/20 Additional Comments F/U for stable intakes, ONS tolerance, wt changes
--- NOTE | 2020-06-19 12:28 | Progress Note ---
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 #Left gluteal, labial cellulitis with abscess: Has had previous surgeries. Know n to Dr. Dalal, status post I&D of her left buttock on 06/09/2020. Went back to OR on 06/13/2020, Large abscess cavity involving left labia, perineum with necrotic tissue and foul smelling purulent drainage. Concerning for jony's per d/w Dr. Dalal. Back to OR on 06/15/2020, "Unroofed left labial and gluteal abscess cavities with debridement of necrotic skin and subq tissue, minimal purulent fluid and some necrotic tissue " #Diabetes mellitus, type II: Uncontrolled #SYLWIA: renally dose abx. Improved. #HIV, follows up with Dr. Ponce. Is on Triumeq, reports excellent compliance, reports undetectable viral load. VL here undetectable, CD4 count 397 Recs: -Continue IV Meropenem -Likely to DC with PO Augmentin assuming she remains afebrile. Surgery planning on DC later this week. -appreciate Gen Surg follow up for additional debridements and source control -Continue PO Triumeq (as individual components: abacavir, lamivudine and dolutegravir) -continue fluconazole Rachel Junior MD [facility] O: [phone] F: [phone] Subjective Date of service: 06/19/20 Interval history: Afebrile, s/p debridement with woundvac now in place. Objective - Exam Narrative Exam: Physical exam deferred due to PPE conservation strategy. Please refer to primary team's note. - Constitutional Vitals: Vital Signs Temp Pulse Resp BP Pulse Ox 99.7 F H 94 H 20 152/72 95 06/19/20 05:19 06/19/20 05:19 06/19/20 05:19 06/19/20 05:19 06/19/20 05:19 Temperature -Last 24 Hours Temperature 99.7 F Temperature 99.8 F Temperature 98.3 F Temperature 97.2 F - Labs CBC & Chem 7: 06/18/20 04:18 06/18/20 04:18 Labs: Abnormal lab results 06/18/20 06/18/20 06/18/20 Range/Units 13:11 15:46 21:46 POC Glucose 152 H 229 H 164 H (70-105) mg/dL
[2020-06-19] MEDS: KETOROLAC 30 MG/1 ML INJ IV SCH ×2 (14:26→20:39)
[2020-06-19] MEDS: HYDROmorphone 2 MG TAB PO PRN ×2 (14:26→19:20)
--- NOTE | 2020-06-19 15:13 | Post Anesthesia Evaluation ---
- Post Anesthesia Evaluation Patient Participated: Yes Airway Patent: Yes Stable Respiratory Function: Yes Nausea/Vomiting: No Pain Manageable: Yes Adequeate Hydration: Yes Anesthesia Complications: No Block Receding Appropriately: Not Applicable Patient on Ventilator: No Other Comments: pt a+o x3. states that pain comes and goes. working with MDs to change pain meds. at the moment she is resting comfortable in bed.
[2020-06-20] MEDS: MEROPENEM/NS 1 GRAM/100 ML 1 GRAM/100 ML BAG IV SCH ×4 (00:29→18:40)
[2020-06-20] MEDS: KETOROLAC 30 MG/1 ML INJ IV SCH ×4 (00:29→19:50)
[2020-06-20] MEDS: traZODone 50 MG TAB PO PRN ×2 (01:16→22:17)
[2020-06-20] MEDS: HYDROmorphone 1 MG/1 ML INJ IV PRN ×4 (04:26→18:36)
[2020-06-20] MEDS: diphenhydrAMINE 50 MG/ML VIAL IV PRN ×3 (04:26→22:17)
[2020-06-20 05:31] LABS: Hematocrit 23.1 % (30.3-42.9); Hemoglobin 7.9 gm/dl (10.1-14.3); Mean Corpuscular HGB Conc 34 % (30-34); Mean Corpuscular Volume 99 fl (79-97); Platelet Count 334 K/mm3 (140-440); Red Blood Count 2.33 M/mm3 (3.65-5.03); Red Cell Distribution Width 14.3 % (13.2-15.2)
[2020-06-20] MEDS ORDERED: hydrALAZINE 20 MG/1 ML INJ IV ONE ×2 (05:33→16:00)
[2020-06-20] MEDS: HEPARIN 5,000 UNIT/1 ML VIAL SUB-Q SCH ×3 (06:02→22:32)
[2020-06-20] MEDS: INSULIN LISPRO 100 UNIT/ML SUB-Q SCH ×8 (08:30→22:32)
--- NOTE | 2020-06-20 09:44 | Progress Note ---
Assessment and Plan Assessment and plan: Patient is a 40-year-old female with known history of hypertension and diabetes mellitus presenting to the emergency room today complaining of bilateral flank pain and suprapubic pain which has been ongoing for the past 2 to 3 days. She has also been having fever, nausea and vomiting and also reported dysuria and increased frequency of urination. She denies any chest pain or shortness of breath, no headache or dizziness. She denies any hematuria. Patient is known to be noncompliant with her medications. Upon arrival in the emergency room, patient was found to be febrile and tachycardic. Work-up reveals urinalysis. CT scan of the abdomen and pelvis reveals left kidney stone. Patient has been started on empiric IV antibiotics for UTI with accompanying sepsis. Acute cystitis Right gluteal, labial abscess/cellulitis. Sepsis. Etiology secondary to above. Diabetes mellitus type 2. Hypertension Acute kidney injury secondary to ATN now resolved Left renal calculus. Asymptomatic HIV Leukocytosis secondary to sepsis Anemia 06/08/2020. Continue antibiotics of Rocephin and vancomycin. ID consultation pending. Continue to monitor temperature curve. Follow-up blood and urine cultures. Continue Lantus, SSRI and Accu-Cheks. 06/09/2020. Continue antibiotics per ID recommendations. Surgery evaluated the patient and recommends incision and drainage of left gluteal abscess in OR to day. Continue tight glycemic control. Increase Lantus to 35 units. 06/10/2020. Patient is s/p Incision and drainage, excisional debridement of right gluteal abscess. Surgery found 5 cm abscess cavity of the right gluteal cleft. Follow-up blood and wound cultures. Continue antibiotics per ID rec ommendations. Tight glycemic control. Continue Lantus 35 units. 06/11/2020. Patient is POD#2 for Incision and drainage, excisional debridement of right gluteal abscess. Surgery found 5 cm abscess cavity of the right gluteal cleft. Continue IV antibiotics per ID recommendations. Tight glycemic control. Urine culture negative. Blood cultures negative x4 days. Patient still with significant fever. Patient with [place] and morphine for pain 06/12/2020; day 3 status post excisional debridement of right gluteal abscess. Surgery found 5 cm abscess cavity of the right gluteal cleft. Continue IV antibiotics per ID recommendations. Tight glycemic control. Urine culture negative. Blood cultures negative x4 days. Patient still with significant fever. Patient with [place] and morphine for pain. Continue inpatient care. There is significant swelling and tenderness of the labia majora and surrounding areas. Patient is followed by general surgery and will get in touch with Dr. simpson. 06/13/2020; patient will have another debridement today per general surgery. ID is following the patient and patient is on IV Ancef and clindamycin. Wound culture grew group A streptococcus. 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 06/14/2020; patient had incision and drainage of abscess, foreigners gangrene by general surgery yesterday. ID is following the patient and Ancef is changed to cefepime and continue with clindamycin. Patient has leukocytosis today. No fever overnight. Continue inpatient care. Will follow general surgery re commendation. Patient has history of HIV. Continue diabetic management. 06/15/2020; patient finished clindamycin and currently on cefepime, vancomycin and fluconazole. Will follow culture result. ID is following the patient. General surgery is following and will take to the OR for further drainage today. 06/16/2020; patient is on cefepime, clindamycin, fluconazole and HIV medications. Patient is still shooting fever. ID is following. Patient had multiple incision and drainage of abscess. General surgery is following and will take to the OR for further drainage today. 06/17/2020; patient is on cefepime, clindamycin, fluconazole and HIV medications. Patient is still shooting fever. ID is following. Patient had multiple incision and drainage of abscess. General surgery is following and will take her to the OR for washout of the wound and possible wound VAC placement. Patient initially refused LTAC but now she is interested in LTAC, please discuss with case management on the weekdays. Anemia of chronic illness; monitor H&H and transfuse if hemoglobin is below 7. 06/18: Patient continues with management of sepsis secondary to left gluteal, labial cellulitis with abscess is for surgery today for washout. We will continue with antibiotics. Continue to follow cultures. We will continue to monitor blood glucose and ensure adequate insulin coverage. 06/19: Patient underwent: 1. Excisional debridement, washout of wound of left labia/perineum with placement of wound vac, POD 1;2. 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 Incision and drainage, excisional debridement of left gluteal abscess 06/09/20 She is doing well clinically. Continues with wound VAC. Surgery plans to change wound VAC on and will attempt to be done at bedside. Patient will continue with antibiotics anticipation for discharge per surgeon with home health will be or Thursday. Continue to address pain medications. 06/20: Continue supportive care, ID input noted, -Continue IV Meropenem, -Likely to DC with PO Augmentin assuming she remains afebrile. Surgery planning on DC later this week. Continue PO Triumeq (as individual components: abacavir, lamivudine and dolutegravir) -continue fluconazole Will continue to monitor H/H. Plan discussed with patient, Anticipate discharge in 24 to 48 hrs if ok with surgeon. Discussed pain control with nursing staff. History Interval history: Patient seen and examined reports still some uncomfortable pain but otherwise no distress. Denies nausea vomiting. Hospitalist Physical - Physical exam Narrative exam: VITAL SIGNS: Reviewed. GENERAL: The patient appears normally developed, Vital signs as documented. HEAD: No signs of head trauma. EYES: Pupils are equal. Extraocular motions intact. EARS: Hearing grossly intact. MOUTH: Oropharynx is normal. NECK: No adenopathy, no JVD. CHEST: Chest with clear breath sounds bilaterally. No wheezes, rales, or rhonchi. CARDIAC: Regular rate and rhythm. S1 and S2, without murmurs, gallops, or rubs. VASCULAR: No Edema. Peripheral pulses normal and equal in all extremities. ABDOMEN: Soft, non tender and non distended. No rebound or guarding, and no masses palpated. Bowel Sounds normal. MUSCULOSKELETAL: Good range of motion of all major joints. Extremities without clubbing, cyanosis or edema. NEUROLOGIC EXAM: Alert and oriented x 3 No focal sensory or strength deficits. Speech normal. Follows commands. PSYCHIATRIC: Mood normal. SKIN: Multiple skin tattoos detail exam as documented in skin assessment, Sacral decubitus ulcer. Status post incision drainage of abscess in the sacral and le ft labia majora area - Constitutional Vitals: Temp Pulse Resp BP Pulse Ox 98.1 F 90 20 183/100 91 06/20/20 05:03 06/20/20 05:03 06/20/20 05:03 06/20/20 06:09 06/20/20 05:03 General appearance: Present: no acute distress, well-nourished Results - Labs CBC & Chem 7: 06/20/20 04:45 06/18/20 04:18 Labs: Laboratory Last Values WBC 8.8 K/mm3 (4.5-11.0) 06/20/20 04:45 RBC 2.33 M/mm3 (3.65-5.03) L 06/20/20 04:45 Hgb 7.9 gm/dl (10.1-14.3) L 06/20/20 04:45 Hct 23.1 % (30.3-42.9) L 06/20/20 04:45 MCV 99 fl (79-97) H 06/20/20 04:45 MCH 34 pg (28-32) H 06/20/20 04:45 MCHC 34 % (30-34) 06/20/20 04:45 RDW 14.3 % (13.2-15.2) 06/20/20 04:45 Plt Count 334 K/mm3 (140-440) 06/20/20 04:45 Lymph % (Auto) 9.8 % (13.4-35.0) L 06/17/20 04:44 Ashley % (Auto) Human Resources Technician 06/18/20 04:18 Eos % (Auto) 1.4 % (0.0-4.3) 06/17/20 04:44 Baso % (Auto) 0.2 % (0.0-1.8) 06/17/20 04:44 Lymph # (Auto) 1.8 K/mm3 (1.2-5.4) 06/17/20 04:44 Ashley # (Auto) 1.2 K/mm3 (0.0-0.8) H 06/17/20 04:44 Eos # (Auto) 0.3 K/mm3 (0.0-0.4) 06/17/20 04:44 Baso # (Auto) 0.0 K/mm3 (0.0-0.1) 06/17/20 04:44 Add Manual Diff Complete 06/18/20 04:18 Total Counted 100 06/18/20 04:18 Seg Neutrophils % Human Resources Technician 06/18/20 04:18 Seg Neuts % (Manual) 82.0 % (40.0-70.0) H 06/18/20 04:18 Band Neutrophils % 2.0 % 06/16/20 04:40 Lymphocytes % (Manual) 16.0 % (13.4-35.0) 06/18/20 04:18 Monocytes % (Manual) 2.0 % (0.0-7.3) 06/18/20 04:18 Eosinophils % (Manual) 1.0 % (0.0-4.3) 06/16/20 04:40 Nucleated RBC % Not Reportable 06/18/20 04:18 Seg Neutrophils # 14.7 K/mm3 (1.8-7.7) H 06/17/20 04:44 Seg Neutrophils # Man 10.9 K/mm3 (1.8-7.7) H 06/18/20 04:18 Band Neutrophils # 0.0 K/mm3 06/18/20 04:18 Abs Lymphs (Manual) 1110 cells/uL (850-3900) 06/13/20 04:57 Lymphocytes # (Manual) 2.1 K/mm3 (1.2-5.4) 06/18/20 04:18 Abs React Lymphs (Man) 0.0 K/mm3 06/18/20 04:18 Monocytes # (Manual) 0.3 K/mm3 (0.0-0.8) 06/18/20 04:18 Eosinophils # (Manual) 0.0 K/mm3 (0.0-0.4) 06/18/20 04:18 Basophils # (Manual) 0.0 K/mm3 (0.0-0.1) 06/18/20 04:18 Metamyelocytes # 0.0 K/mm3 06/18/20 04:18 Myelocytes # 0.0 K/mm3 06/18/20 04:18 Promyelocytes # 0.0 K/mm3 06/18/20 04:18 Blast Cells # 0.0 K/mm3 06/18/20 04:18 WBC Morphology Not Reportable 06/18/20 04:18 Hypersegmented Neuts Not Reportable 06/18/20 04:18 Hyposegmented Neuts Not Reportable 06/18/20 04:18 Hypogranular Neuts Not Reportable 06/18/20 04:18 Smudge Cells Not Reportable 06/18/20 04:18 Toxic Granulation Not Reportable 06/18/20 04:18 Toxic Vacuolation Not Reportable 06/18/20 04:18 Dohle Bodies Not Reportable 06/18/20 04:18 Pelger-Huet Anomaly Not Reportable 06/18/20 04:18 Mary Kay Rods Not Reportable 06/18/20 04:18 Platelet Estimate Consistent w auto 06/18/20 04:18 Clumped Platelets Not Reportable 06/18/20 04:18 Plt Clumps, EDTA Not Reportable 06/18/20 04:18 Large Platelets Not Reportable 06/18/20 04:18 Giant Platelets Not Reportable 06/18/20 04:18 Platelet Satelliting Not Reportable 06/18/20 04:18 Plt Morphology Comment Not Reportable 06/18/20 04:18 RBC Morphology Not Reportable 06/18/20 04:18 Dimorphic RBCs Not Reportable 06/18/20 04:18 Polychromasia Not Reportable 06/18/20 04:18 Hypochromasia 1+ 06/18/20 04:18 Poikilocytosis Not Reportable 06/18/20 04:18 Anisocytosis Few 06/18/20 04:18 Microcytosis Not Reportable 06/18/20 04:18 Macrocytosis Not Reportable 06/18/20 04:18 Spherocytes Not Reportable 06/18/20 04:18 Pappenheimer Bodies Not Reportable 06/18/20 04:18 Sickle Cells Not Reportable 06/18/20 04:18 Target Cells Not Reportable 06/18/20 04:18 Tear Drop Cells Not Reportable 06/18/20 04:18 Ovalocytes Not Reportable 06/18/20 04:18 Helmet Cells Not Reportable 06/18/20 04:18 [place] Bodies Not Reportable 06/18/20 04:18 [place] Rings Not Reportable 06/18/20 04:18 Karla Cells Not Reportable 06/18/20 04:18 Bite Cells Not Reportable 06/18/20 04:18 Crenated Cell Not Reportable 06/18/20 04:18 Elliptocytes Not Reportable 06/18/20 04:18 Acanthocytes (Spur) Not Reportable 06/18/20 04:18 Rouleaux Not Reportable 06/18/20 04:18 Hemoglobin C Crystals Not Reportable 06/18/20 04:18 Schistocytes Not Reportable 06/18/20 04:18 Malaria parasites Not Reportable 06/18/20 04:18 Jim Bodies Not Reportable 06/18/20 04:18 Hem Pathologist Commnt No 06/18/20 04:18 PT 12.9 Sec. (12.2-14.9) 06/08/20 04:00 INR 0.99 (0.87-1.13) 06/08/20 04:00 Sodium 142 mmol/L (137-145) D 06/18/20 04:18 Potassium 4.1 mmol/L (3.6-5.0) 06/18/20 04:18 Chloride 104.0 mmol/L (98-107) 06/18/20 04:18 Carbon Dioxide 23 mmol/L (22-30) 06/18/20 04:18 Anion Gap 19 mmol/L 06/18/20 04:18 BUN 12 mg/dL (7-17) 06/18/20 04:18 Creatinine 1.2 mg/dL (0.6-1.2) 06/18/20 04:18 Estimated GFR 50 ml/min 06/18/20 04:18 BUN/Creatinine Ratio 10 % 06/18/20 04:18 Glucose 172 mg/dL (65-100) H 06/18/20 04:18 POC Glucose 138 mg/dL (70-105) H 06/20/20 08:09 Hemoglobin A1c 12.0 % (4-6) H 06/09/20 04:43 Lactic Acid 1.70 mmol/L (0.7-2.0) 06/06/20 22:34 Calcium 8.7 mg/dL (8.4-10.2) 06/18/20 04:18 Total Bilirubin 0.50 mg/dL (0.1-1.2) 06/06/20 19:59 AST 15 units/L (5-40) 06/06/20 19:59 ALT 29 units/L (7-56) 06/06/20 19:59 Alkaline Phosphatase 115 units/L (35-129) 06/06/20 19:59 Total Protein 6.6 g/dL (6.3-8.2) 06/06/20 19:59 Albumin 3.7 g/dL (3.9-5) L 06/06/20 19:59 Albumin/Globulin Ratio 1.3 % 06/06/20 19:59 HCG, Qual Negative (Negative) 06/06/20 23:19 Urine Color Yellow (Yellow) 06/06/20 Unknown Urine Turbidity Slightly-cloudy (Clear) 06/06/20 Unknown Urine pH 5.0 (5.0-7.0) 06/06/20 Unknown Ur Specific [place] 1.023 (1.003-1.030) 06/06/20 Unknown Urine Protein >500 mg/dL (Negative) 06/06/20 Unknown Urine Glucose (UA) >=500 mg/dL (Negative) 06/06/20 Unknown Urine Ketones Neg mg/dL (Negative) 06/06/20 Unknown Urine Blood Sm (Negative) 06/06/20 Unknown Urine Nitrite Neg (Negative) 06/06/20 Unknown Urine Bilirubin Neg (Negative) 06/06/20 Unknown Urine Urobilinogen < 2.0 mg/dL (<2.0) 06/06/20 Unknown Ur Leukocyte Esterase Neg (Negative) 06/06/20 Unknown Urine WBC (Auto) 16.0 /HPF (0.0-6.0) H 06/06/20 Unknown Urine RBC (Auto) 8.0 /HPF (0.0-6.0) 06/06/20 Unknown U Epithel Cells (Auto) 5.0 /HPF (0-13.0) 06/06/20 Unknown Urine Bacteria (Auto) 1+ /HPF (Negative) 06/06/20 Unknown Urine Mucus Few /HPF 06/06/20 Unknown Vancomycin Trough 14.1 ug/mL (5.0-20.0) 06/15/20 18:29 Lymph Enumerat CD4/CD8 1.02 (0.86-5.00) 06/13/20 04:57 % CD3 Cells 73 % (57-85) 06/13/20 04:57 Absolute CD3 Count 813 cells/uL (840-3060) L 06/13/20 04:57 % CD4 Cells 37 % (30-61) 06/13/20 04:57 Absolute CD4 Count 397 cells/uL (490-1740) L 06/13/20 04:57 % CD8 Cells 36 % (12-42) 06/13/20 04:57 Absolute CD8 Count 388 cells/uL (180-1170) 06/13/20 04:57 % CD19 Cells 24 % (6-29) 06/13/20 04:57 Absolute CD19 Count 279 cells/uL (110-660) 06/13/20 04:57 HIV-1 RNA PCR copies/ml <20 Copies/mL H 06/13/20 04:57 HIV-1 RNA (PCR) log <1.30 Log cps/mL H 06/13/20 04:57 Perry/IV: Voiding Method Bedside Commode Active Medications - Current Medications Current Medications: Generic Name Dose Route Start Last Admin Trade Name Freq PRN Reason Stop Dose Admin Abacavir Sulfate 600 mg 06/07/20 10:00 06/19/20 09:34 Abacavir 300 Mg Tab PO 600 mg DAILY GRIS Administration Acetaminophen 650 mg 06/07/20 00:59 06/16/20 17:46 Acetaminophen 325 Mg Tab PO 650 mg Q4H PRN Administration Pain MILD(1-3)/Fever >100.5/CHAVARRIA Aripiprazole 15 mg 06/07/20 10:00 06/19/20 09:34 Aripiprazole 15 Mg Tab PO 15 mg QDAY GRIS Administration Bupropion HCl 150 mg 06/07/20 10:00 06/19/20 09:34 Bupropion Xl 150 Mg Tab PO 150 mg QDAY GRIS Administration Dextrose 50 ml 06/07/20 00:59 Dextrose 50% In Water (25gm) 50 Ml Syringe IV Q30MIN PRN Hypoglycemia Protocol Diphenhydramine HCl 25 mg 06/07/20 08:16 06/20/20 04:26 Diphenhydramine 50 Mg/Ml Vial IV 25 mg Q6H PRN Administration Itching Docusate Sodium 100 mg 06/19/20 10:00 06/19/20 22:11 Docusate Sodium 100 Mg Cap PO Not Given BID GRIS Heparin Sodium (Porcine) 5,000 unit 06/07/20 06:00 06/20/20 06:02 Heparin 5,000 Unit/1 Ml Vial SUB-Q Not Given Q8HR GRIS Hydromorphone HCl 0.5 mg 06/19/20 09:07 06/20/20 08:46 Hydromorphone 1 Mg/1 Ml Inj IV 0.5 mg Q3H PRN Administration Pain , Severe (7-10) Hydromorphone HCl 1 mg 06/19/20 12:51 06/19/20 19:20 Hydromorphone 2 Mg Tab PO 1 mg Q4H PRN Administration Pain , Severe (7-10) Fluconazole 200 mg in 100 mls @ 100 mls/hr 06/11/20 14:00 06/19/20 09:34 Diflucan IV 100 mls/hr Q24HR GRIS Administration Protocol MEROPENEM/NS 1 GRAM/100 ML 1 gram in 100 mls @ 100 mls/hr 06/16/20 13:00 06/20/20 06:09 Merrem/Ns 1 Gram/100 Ml IV 100 mls/hr Q6HR GRIS Administration Protocol Insulin Glargine 35 units 06/09/20 10:00 06/19/20 09:35 Insulin Glargine 100 Units/Ml SUB-Q 35 units QAM [facility] Administration Insulin Human Lispro 0 unit 06/07/20 07:30 06/20/20 08:30 Insulin Lispro 100 Unit/Ml SUB-Q Not Given [facility] Protocol Insulin Human Lispro 8 unit 06/07/20 11:30 06/20/20 08:35 Insulin Lispro 100 Unit/Ml SUB-Q 8 unit [facility] Administration Ketorolac Tromethamine 15 mg 06/19/20 13:00 06/20/20 06:08 Ketorolac 30 Mg/1 Ml Inj IV 06/24/20 12:59 15 mg Q6H GRIS Administration Lamivudine 300 mg 06/07/20 10:00 06/19/20 09:35 Lamivudine 150 Mg Tab PO 300 mg DAILY GRIS Administration Metoclopramide HCl 5 mg 06/10/20 14:24 06/19/20 00:04 Metoclopramide 10 Mg/2 Ml Inj IV 5 mg ACHS PRN Administration Nausea Ondansetron HCl 4 mg 06/07/20 00:59 06/16/20 03:49 Ondansetron 4 Mg/2 Ml Inj IV 4 mg Q8H PRN Administration Nausea And Vomiting Pantoprazole Sodium 40 mg 06/07/20 10:00 06/19/20 09:34 Pantoprazole 40 Mg Tab PO 40 mg DAILY GRIS Administration Sodium Chloride 10 ml 06/07/20 10:00 06/20/20 08:48 Sodium Chloride 0.9% 10 Ml Flush Syringe IV 10 ml BID GRIS Administration Sodium Chloride 10 ml 06/07/20 00:59 Sodium Chloride 0.9% 10 Ml Flush Syringe IV PRN PRN LINE FLUSH Trazodone HCl 150 mg 06/07/20 01:52 06/20/20 01:16 Trazodone 50 Mg Tab PO 150 mg QHS PRN Administration Insomnia Nutrition/Malnutrition Assess - Dietary Evaluation Nutrition/Malnutrition Findings: Nutrition Notes Start: 06/07/20 14:33 Freq: Status: Active Protocol: Document 06/19/20 10:57 AB (Rec: 06/19/20 11:07 AB [id number]) Co-Sign 06/19/20 10:57 MK Nutrition Notes Initial or Follow up Reassessment Current Diagnosis Diabetes,Sepsis,Hypertension, Hyperlipidemia Other Pertinent Diagnosis UTI, HIV, cellulitis, abcess, L renal calculus, anemia, Jony's gangrene Current Diet Consistent CHO Labs/Tests 06/18 POC BG 164 Pertinent Medications Humalog Merrem/NS 1 g/100 CT at 100 ml /hr Reglan Height 5 ft 3 in Weight 126 kg [place] Body Weight (kg) 52.27 BMI 49.1 Weight change and time frame 3% wt increase in 4 days Weight Status Morbidly Obese Subjective/Other Information F/U for stable intakes and ONS tolerance. Pt reports that her appetite fluctuates, eating 50-100% of meals. Pt ate 100% of breakfast this AM. Pt reports tolerating ONS. pt had procedure of wash out wound and wound vac placed . Percent of energy/protein needs met: 129%/70% (meal intake & ONS) Burn Absent Trauma Absent GI Symptoms None Current % PO Good (75-100%) Minimum of two criteria No physical signs of malnutrition #3 Nutrition Diagnosis Increased nutrient needs ( specify in comment below) Comments: protein Etiology wound healing As Evidenced by Signs and Symptoms L genital labial abscess and L gluteal abscess #2 Nutrition Diagnosis Inadequate oral intake As Evidenced by Signs and Symptoms Pt meeting 129%/138% of energy /protein needs via consistent CHO diet and daily ONS. Diagnosis Progress(for reassessment Improved documentation) Is patient on ventilator? No Is Patient Ambulatory and/or Out of Bed Yes [facility] [ 2475.369 [id number]] Kcal/Kg value to use for calculation 14 Approximate Energy Requirements Using 1764 kcal/Kg Calculation Used for Recommendations Kcal/kg Additional Notes PRO needs: 111-134 g (1.25-1.5 g/kg AdBW: 89.19 kg) Fluid needs: 1 mL/kcal or per MD Nutrition Intervention Change Diet Order: Continue Consistent CHO diet Add Supplement/Snack (indicate name/kcal Ensure High Protein BID /protein ) Provides kCal: 320 Provides Protein (gm) 32 Goal #1 Meet 75% of estimated energy and protein needs via PO. Anticipated Discharge Needs: Cardiac/Consistent CHO Follow-Up By: 06/22/20 Additional Comments F/U for stable intakes, ONS tolerance, wt changes
[2020-06-20] MEDS: FLUCONAZOLE 200 MG 200 MG/100 ML BAG IV SCH (11:01)
[2020-06-20] MEDS: ABACAVIR 300 MG TAB PO SCH (11:02)
[2020-06-20] MEDS: DOLUTEGRAVIR 50 MG TAB PO SCH (11:04)
[2020-06-20] MEDS: DOCUSATE SODIUM 100 MG CAP PO SCH ×2 (11:05→22:17)
[2020-06-20] MEDS: buPROPion XL 150 MG TAB PO SCH (11:06)
[2020-06-20] MEDS: ARIPiprazole 15 MG TAB PO SCH ×2 (11:06→11:27)
[2020-06-20] MEDS: INSULIN GLARGINE 100 UNITS/ML SUB-Q SCH ×2 (11:07→11:28)
[2020-06-20] MEDS: PANTOPRAZOLE 40 MG TAB PO SCH (11:10)
--- NOTE | 2020-06-20 13:34 | Progress Note ---
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 #Left gluteal, labial cellulitis with abscess: Has had previous surgeries. Know n to Dr. Dalal, status post I&D of her left buttock on 06/09/2020. Went back to OR on 06/13/2020, Large abscess cavity involving left labia, perineum with necrotic tissue and foul smelling purulent drainage. Concerning for jony's per d/w Dr. Dalal. Back to OR on 06/15/2020, "Unroofed left labial and gluteal abscess cavities with debridement of necrotic skin and subq tissue, minimal purulent fluid and some necrotic tissue " #Diabetes mellitus, type II: Uncontrolled #SYLWIA: renally dose abx. Improved. #HIV, follows up with Dr. Ponce. Is on Triumeq, reports excellent compliance, reports undetectable viral load. VL here undetectable, CD4 count 397 Recs: -Continue IV Meropenem -Likely to DC with PO Augmentin for 5 more days assuming she remains afebrile. Surgery planning on DC later this week. -appreciate Gen Surg follow up for additional debridements and source control -Continue PO Triumeq (as individual components: abacavir, lamivudine and dolutegravir). Resume Triumeq on discharge. -continue fluconazole Zofia. Sakina Junior MD [facility] O: [phone] F: [phone] Subjective Date of service: 06/20/20 Interval history: Afebrile, normal white count. No other acute changes. Objective - Exam Narrative Exam: Physical exam deferred due to PPE conservation strategy. Please refer to primary team's note. - Constitutional Vitals: Vital Signs Temp Pulse Resp BP Pulse Ox 98.1 F 90 20 183/100 91 06/20/20 05:03 06/20/20 05:03 06/20/20 05:03 06/20/20 06:09 06/20/20 05:03 Temperature -Last 24 Hours Temperature 98.1 F Temperature 98.8 F - Labs CBC & Chem 7: 06/20/20 04:45 06/18/20 04:18 Labs: Abnormal lab results 06/19/20 06/19/20 06/20/20 Range/Units 16:10 21:22 04:45 RBC 2.33 L (3.65-5.03) M/mm3 Hgb 7.9 L (10.1-14.3) gm/dl Hct 23.1 L (30.3-42.9) % MCV 99 H (79-97) fl MCH 34 H (28-32) pg POC Glucose 119 H 185 H (70-105) mg/dL 06/20/20 06/20/20 Range/Units 08:09 12:06 RBC (3.65-5.03) M/mm3 Hgb (10.1-14.3) gm/dl Hct (30.3-42.9) % MCV (79-97) fl MCH (28-32) pg POC Glucose 138 H 120 H (70-105) mg/dL
[2020-06-20] MEDS: HYDROmorphone 2 MG TAB PO PRN (22:17)
[2020-06-21] MEDS: KETOROLAC 30 MG/1 ML INJ IV SCH ×3 (01:27→14:24)
[2020-06-21] MEDS: MEROPENEM/NS 1 GRAM/100 ML 1 GRAM/100 ML BAG IV SCH ×3 (01:27→14:24)
[2020-06-21] MEDS: HYDROmorphone 1 MG/1 ML INJ IV PRN ×4 (03:04→11:29)
[2020-06-21] MEDS: INSULIN LISPRO 100 UNIT/ML SUB-Q SCH ×4 (07:30→11:30)
[2020-06-21] MEDS: diphenhydrAMINE 50 MG/ML VIAL IV PRN (09:37)
[2020-06-21] MEDS: PANTOPRAZOLE 40 MG TAB PO SCH (10:00)
[2020-06-21] MEDS: INSULIN GLARGINE 100 UNITS/ML SUB-Q SCH (10:00)
[2020-06-21] MEDS: ABACAVIR 300 MG TAB PO SCH (10:00)
[2020-06-21] MEDS: ARIPiprazole 15 MG TAB PO SCH (10:00)
[2020-06-21] MEDS: DOLUTEGRAVIR 50 MG TAB PO SCH (10:00)
[2020-06-21] MEDS: DOCUSATE SODIUM 100 MG CAP PO SCH (10:00)
[2020-06-21] MEDS: buPROPion XL 150 MG TAB PO SCH (10:00)
[2020-06-21] MEDS: FLUCONAZOLE 200 MG 200 MG/100 ML BAG IV SCH (10:08)
--- NOTE | 2020-06-21 11:36 | Progress Note ---
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 #Left gluteal, labial cellulitis with abscess: Has had previous surgeries. Know n to Dr. Dalal, status post I&D of her left buttock on 06/09/2020. Went back to OR on 06/13/2020, Large abscess cavity involving left labia, perineum with necrotic tissue and foul smelling purulent drainage. Concerning for jony's per d/w Dr. Dalal. Back to OR on 06/15/2020, "Unroofed left labial and gluteal abscess cavities with debridement of necrotic skin and subq tissue, minimal purulent fluid and some necrotic tissue " #Diabetes mellitus, type II: Uncontrolled #SYLWIA: renally dose abx. Improved. #HIV, follows up with Dr. Ponce. Is on Triumeq, reports excellent compliance, reports undetectable viral load. VL here undetectable, CD4 count 397 Recs: -Continue IV Meropenem -Likely to DC with PO Augmentin for 5 more days assuming she remains afebrile. Surgery planning on DC later this week. -appreciate Gen Surg follow up for additional debridements and source control -Continue PO Triumeq (as individual components: abacavir, lamivudine and dolutegravir). Resume Triumeq on discharge. -continue fluconazole Zofia. Sakina Junior MD [facility] ([facility] O: [phone] F: [phone] Subjective Date of service: 06/21/20 Interval history: Afebrile over last several days. Normal white count now. No other acute changes. Objective - Exam Narrative Exam: Physical exam deferred due to PPE conservation strategy. Please refer to primary team's note. - Constitutional Vitals: Vital Signs Temp Pulse Resp BP Pulse Ox 99.3 F 88 20 183/83 95 06/20/20 22:11 03/17/21 22:11 06/21/20 11:29 06/20/20 22:11 06/21/20 09:46 Temperature -Last 24 Hours Temperature 99.3 F - Labs CBC & Chem 7: 06/20/20 04:45 06/18/20 04:18 Labs: Abnormal lab results 06/20/20 06/20/20 06/20/20 Range/Units 12:06 17:27 22:12 POC Glucose 120 H 168 H 136 H (70-105) mg/dL 06/21/20 Range/Units 07:37 POC Glucose 116 H (70-105) mg/dL
--- NOTE | 2020-06-21 12:23 | Discharge Summary ---
Providers - Providers Date of Admission: 06/07/20 00:48 Attending physician: SAQIB ISAACS MD 06/07/20 00:59 Consult to Dietitian/Nutrition [CONS] Routine Physician Instructions: Reason For Exam: Reason for Consult: Diet education 06/07/20 14:18 Consult to Wound/ET Nurse [CONS] Stat Reason For Exam: wound eval 06/08/20 08:17 Consult to Physician [CONS] Routine Comment: Consulting Provider: DEREK ULZ Physician Instructions: Reason For Exam: sepsis 06/08/20 11:44 Consult to Physician [CONS] Routine Comment: Consulting Provider: ANA CORTES Physician Instructions: Reason For Exam: Left gluteal cellulitis and abscess 06/08/20 12:12 Consult to Physician [CONS] Routine Comment: Consulting Provider: ANA CORTES Physician Instructions: Reason For Exam: evaluate left buttock abscess 06/13/20 13:28 Physical Therapy Evaluation and Treat [CONS] Stat Comment: Reason For Exam: Eval and treat for walker Primary care physician: CQ DEVELOPER Hospitalization Reason for admission: Right gluteal, labial abscess/cellulitis. Condition: Stable Hospital course: Patient is a 40-year-old female with known history of hypertension and diabetes mellitus presenting to the emergency room today complaining of bilateral flank pain and suprapubic pain which has been ongoing for the past 2 to 3 days. She has also been having fever, nausea and vomiting and also reported dysuria and increased frequency of urination. She denies any chest pain or shortness of breath, no headache or dizziness. She denies any hematuria. Patient is known to be noncompliant with her medications. Upon arrival in the emergency room, patient was found to be febrile and tachycardic. Work-up reveals urinalysis. CT scan of the abdomen and pelvis reveals left kidney stone. Patient has been started on empiric IV antibiotics for UTI with accompanying sepsis. Acute cystitis Right gluteal, labial abscess/cellulitis. Sepsis. Etiology secondary to above. Diabetes mellitus type 2. Hypertension Acute kidney injury secondary to ATN now resolved Left renal calculus. Asymptomatic HIV Leukocytosis secondary to sepsis Anemia 06/08/2020. Continue antibiotics of Rocephin and vancomycin. ID consultation pending. Continue to monitor temperature curve. Follow-up blood and urine cultures. Continue Lantus, SSRI and Accu-Cheks. 06/09/2020. Continue antibiotics per ID recommendations. Surgery evaluated the patient and recommends incision and drainage of left gluteal abscess in OR today. Continue tight glycemic control. Increase Lantus to 35 units. 06/10/2020. Patient is s/p Incision and drainage, excisional debridement of right gluteal abscess. Surgery found 5 cm abscess cavity of the right gluteal cleft. Follow-up blood and wound cultures. Continue antibiotics per ID recommendations. Tight glycemic control. Continue Lantus 35 units. 06/11/2020. Patient is POD#2 for Incision and drainage, excisional debridement of right gluteal abscess. Surgery found 5 cm abscess cavity of the right gluteal cleft. Continue IV antibiotics per ID recommendations. Tight glycemic control. Urine culture negative. Blood cultures negative x4 days. Patient still with significant fever. Patient with Ribera and morphine for pain 06/12/2020; day 3 status post excisional debridement of right gluteal abscess. Surgery found 5 cm abscess cavity of the right gluteal cleft. Continue IV antibiotics per ID recommendations. Tight glycemic control. Urine culture negative. Blood cultures negative x4 days. Patient still with significant fever. Patient with Ribera and morphine for pain. Continue inpatient care. There is significant swelling and tenderness of the labia majora and surrounding areas. Patient is followed by general surgery and will get in touch with Dr. cortes. 06/13/2020; patient will have another debridement today per general surgery. ID is following the patient and patient is on IV Ancef and clindamycin. Wound culture grew group A streptococcus. 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 06/14/2020; patient had incision and drainage of abscess, foreigners gangrene by general surgery yesterday. ID is following the patient and Ancef is changed to cefepime and continue with clindamycin. Patient has leukocytosis today. No fever overnight. Continue inpatient care. Will follow general surgery recommendation. Patient has history of HIV. Continue diabetic management. 06/15/2020; patient finished clindamycin and currently on cefepime, vancomycin and fluconazole. Will follow culture result. ID is following the patient. General surgery is following and will take to the OR for further drainage today. 06/16/2020; patient is on cefepime, clindamycin, fluconazole and HIV medications. Patient is still shooting fever. ID is following. Patient had multiple incision and drainage of abscess. General surgery is following and will take to the OR for further drainage today. 06/17/2020; patient is on cefepime, clindamycin, fluconazole and HIV medications. Patient is still shooting fever. ID is following. Patient had multiple incision and drainage of abscess. General surgery is following and will take her to the OR for washout of the wound and possible wound VAC placement. Patient initially refused LTAC but now she is interested in LTAC, please discuss with case management on the weekdays. Anemia of chronic illness; monitor H&H and transfuse if hemoglobin is below 7. 06/18: Patient continues with management of sepsis secondary to left gluteal, labial cellulitis with abscess is for surgery today for washout. We will continue with antibiotics. Continue to follow cultures. We will continue to monitor blood glucose and ensure adequate insulin coverage. 06/19: Patient underwent: 1. Excisional debridement, washout of wound of left labia/perineum with placement of wound vac, POD 1;2. 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 Incision and drainage, excisional debridement of left gluteal abscess 06/09/20 She is doing well clinically. Continues with wound VAC. Surgery plans to change wound VAC on and will attempt to be done at bedside. Patient will continue with antibiotics anticipation for discharge per surgeon with home health will be or Thursday. Continue to address pain medications. 06/20: Continue supportive care, ID input noted, -Continue IV Meropenem, -Likely to DC with PO Augmentin assuming she remains afebrile. Surgery planning on DC later this week. Continue PO Triumeq (as individual components: abacavir, lamivudine and dolutegravir) -continue fluconazole Will continue to monitor H/H. Plan discussed with patient, Anticipate discharge in 24 to 48 hrs if ok with surgeon. Discussed pain control with nursing staff. 06/21: Patient tolerated wound VAC changes today. Education provided to the patient she verbalized understanding. She is to follow with the woundwound care next week Thursday. All questions were answered she was discharged on Augmentin for 5 more days. Disposition: DC-01 TO HOME OR SELFCARE Final Discharge Diagnosis (Prints w/discharge instructions): Right gluteal, labial cellulitis with abscess Time spent for discharge: 35-minute Core Measure Documentation - Palliative Care Palliative Care/ Comfort Measures: Not Applicable - Core Measures Any of the following diagnoses?: none Exam - Physical Exam Narrative exam: VITAL SIGNS: Reviewed. GENERAL: The patient appears normally developed, Vital signs as documented. HEAD: No signs of head trauma. EYES: Pupils are equal. Extraocular motions intact. EARS: Hearing grossly intact. MOUTH: Oropharynx is normal. NECK: No adenopathy, no JVD. CHEST: Chest with clear breath sounds bilaterally. No wheezes, rales, or rhonchi. CARDIAC: Regular rate and rhythm. S1 and S2, without murmurs, gallops, or rubs. VASCULAR: No Edema. Peripheral pulses normal and equal in all extremities. ABDOMEN: Soft, non tender and non distended. No rebound or guarding, and no masses palpated. Bowel Sounds normal. MUSCULOSKELETAL: Good range of motion of all major joints. Extremities without clubbing, cyanosis or edema. NEUROLOGIC EXAM: Alert and oriented x 3 No focal sensory or strength deficits. Speech normal. Follows commands. PSYCHIATRIC: Mood normal. SKIN: Multiple skin tattoos detail exam as documented in skin assessment, Sacral decubitus ulcer. Status post incision drainage of abscess in the sacral and left labia majora area - Constitutional Vitals: Temp Pulse Resp BP Pulse Ox 99.3 F 88 20 183/83 95 06/20/20 22:11 06/20/20 22:11 06/21/20 11:29 06/20/20 22:11 06/21/20 09:46 Plan Activity: advance as tolerated, fall precautions Diet: low fat Wound: per your surgeon's advice, per wound nurse instructions Special Instructions: record daily weights, record daily BP diary Additional Instructions: FOLLOW WITH YOUR PRIMARY DOCTORS IN 1 WEEK Follow up with: PRIMARY MD OTTO [Primary Care Provider] - 3-5 Days ANA CORTES DO [Staff Physician] - 06/25/20 Prescriptions: Amoxicillin/Potassium Clav [Augmentin 875-125 Tablet] 1 each PO BID #10 tablet oxyCODONE /ACETAMINOPHEN [Percocet 5/325] 1 tab PO Q6HR PRN #14 tablet PRN Reason: Pain
--- NOTE | 2020-06-21 12:34 | Progress Note ---
Assessment and Plan 40 yo F s/p 1. Excisional debridement, washout of wound of left labia/perineum with placement of wound vac, POD 3 2. 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 Incision and drainage, excisional debridement of left gluteal abscess 06/09/20 Pt stable. Afebrile. Plan: 1. Consistent carb diet with supplements 2. Wound vac to -125mmHg suction continuous 3. abx per ID 4. May dc home once home wound vac is delivered to hospital. Pt to follow up in [facility] on Sunday 06/25 D/W Dr. Collins Thank you for this consultation. Please call with any questions or concerns. Evaluation and treatment of this patient was during the time of the national and state emergency arising from COVID19 coronavirus pandemic. Treatment and procedures performed meet the current and available best practice and guidelines for patient during the COVID pandemic. Subjective Date of service: 06/21/20 Narrative: Pt seen and examined. No complaints. Afebrile. Vac changed at bedside today. Objective Vital Signs - 12hr 06/21/20 06/21/20 06/21/20 09:37 09:46 10:08 Respiratory 20 20 20 Rate O2 Sat by Pulse 95 Oximetry 06/21/20 11:29 Respiratory 20 Rate O2 Sat by Pulse Oximetry - General physical appearance Narrative Exam: Gen: AAOx3. NAD CV: s1, S2+ Resp: even and unlabored Ext: L groin wound vac in place without leak - Labs 06/20/20 04:45 06/18/20 04:18
[2020-06-21 13:20] VITALS: BP 161/86
[2020-06-21] MEDS: HEPARIN 5,000 UNIT/1 ML VIAL SUB-Q SCH (14:00)
== END 2020-06-21 15:30 | disposition home health service (06) | DRG 853 ==
LOC: ED 19:24 → 3A 06-07 00:48
PROVIDERS: ADMIT Internal Medicine Geriatric Medicine; ATTEND Internal Medicine
PROC: 0JB90ZZ Excision of Buttock Subcutaneous Tissue and Fascia, Open Approach (ICD-10-PCS; principal; 2020-06-09)
PROC: 0J990ZX Drainage of Buttock Subcutaneous Tissue and Fascia, Open Approach, Diagnostic (ICD-10-PCS; 2020-06-09)
PROC: 0U9M0ZZ Drainage of Vulva, Open Approach (ICD-10-PCS; 2020-06-13)
PROC: 0JBB0ZZ Excision of Perineum Subcutaneous Tissue and Fascia, Open Approach (ICD-10-PCS; 2020-06-13)
PROC: 0HB9XZZ Excision of Perineum Skin, External Approach (ICD-10-PCS; 2020-06-13)
PROC: 0JBB0ZZ Excision of Perineum Subcutaneous Tissue and Fascia, Open Approach (ICD-10-PCS; 2020-06-15)
PROC: 0JBB0ZZ Excision of Perineum Subcutaneous Tissue and Fascia, Open Approach (ICD-10-PCS; 2020-06-18)
DX: A41.9 Sepsis, unspecified organism (principal); N17.0 Acute kidney failure with tubular necrosis; L03.317 Cellulitis of buttock; L02.31 Cutaneous abscess of buttock; Z68.42 Body mass index [BMI] 45.0-49.9, adult; N76.4 Abscess of vulva; N30.00 Acute cystitis without hematuria; N20.0 Calculus of kidney; I10 Essential (primary) hypertension; Z87.442 Personal history of urinary calculi; E11.9 Type 2 diabetes mellitus without complications; Z88.2 Allergy status to sulfonamides; Z88.8 Allergy status to other drugs, medicaments and biological substances; Z91.041 Radiographic dye allergy status; Z91.013 Allergy to seafood; J45.909 Unspecified asthma, uncomplicated; F41.9 Anxiety disorder, unspecified; F32.9 Major depressive disorder, single episode, unspecified; Z90.710 Acquired absence of both cervix and uterus; Z79.899 Other long term (current) drug therapy; E78.5 Hyperlipidemia, unspecified; F17.210 Nicotine dependence, cigarettes, uncomplicated; D64.9 Anemia, unspecified; E66.9 Obesity, unspecified; N76.2 Acute vulvitis; B95.1 Streptococcus, group B, as the cause of diseases classified elsewhere; Z21 Asymptomatic human immunodeficiency virus [HIV] infection status
CPT/HCPCS: 36415; 71045; 74176; 80048; 80053; 80202; 81001; 82024; 82140; 82962; 83036; 84703; 85007; 85025; 85027; 85610; 87040; 87075; 87086; 87116; 87536; 96365; 96366; 96368; 96375; 96376; G0378; A4217; A6260; J0360; J0690; J0692; J0696; J1100; J1170; J1200; J1450; J1644; J1815; J1885; J1940; J2185; J2250; J2270; J2405; J2704; J2765; J3010; J3370; J3490; J7030; J7040

== ENCOUNTER 2020-06-25 08:43 | Outpatient (CLI) | payer MEDICARE ==
[2020-06-25] MEDS ORDERED: LIDOCAINE (4%) 40 MG/ML TOPICAL SOLN 50 ML BOTTLE TP ONE (08:55)
== END 2020-06-25 08:44 | disposition home or self-care (01) ==
LOC: WOUND 08:43
PROVIDERS: ATTEND Surgery
DX: T81.89XA Other complications of procedures, not elsewhere classified, initial encounter (principal); E11.622 Type 2 diabetes mellitus with other skin ulcer; L97.811 Non-pressure chronic ulcer of other part of right lower leg limited to breakdown of skin; I10 Essential (primary) hypertension; E78.00 Pure hypercholesterolemia, unspecified; K21.9 Gastro-esophageal reflux disease without esophagitis; L02.31 Cutaneous abscess of buttock; N76.89 Other specified inflammation of vagina and vulva; L73.2 Hidradenitis suppurativa; F41.9 Anxiety disorder, unspecified; F31.9 Bipolar disorder, unspecified; F17.290 Nicotine dependence, other tobacco product, uncomplicated; Z90.710 Acquired absence of both cervix and uterus; Z90.49 Acquired absence of other specified parts of digestive tract; Y83.8 Other surgical procedures as the cause of abnormal reaction of the patient, or of later complication, without mention of misadventure at the time of the procedure; Y92.238 Other place in hospital as the place of occurrence of the external cause
CPT/HCPCS: 97597; 97598; 97605

== ENCOUNTER 2020-06-28 08:07 | Outpatient (CLI) | payer MEDICARE | END 2020-06-28 08:08 | disposition home or self-care (01) | LOC: WOUND 08:07 | PROVIDERS: ATTEND Surgery | DX: T81.89XD Other complications of procedures, not elsewhere classified, subsequent encounter (principal); E11.622 Type 2 diabetes mellitus with other skin ulcer; L97.811 Non-pressure chronic ulcer of other part of right lower leg limited to breakdown of skin; I10 Essential (primary) hypertension; E78.00 Pure hypercholesterolemia, unspecified; K21.9 Gastro-esophageal reflux disease without esophagitis; L02.31 Cutaneous abscess of buttock; N76.89 Other specified inflammation of vagina and vulva; L73.2 Hidradenitis suppurativa; F41.9 Anxiety disorder, unspecified; F31.9 Bipolar disorder, unspecified; F17.290 Nicotine dependence, other tobacco product, uncomplicated; Z90.710 Acquired absence of both cervix and uterus; Z90.49 Acquired absence of other specified parts of digestive tract; Y83.8 Other surgical procedures as the cause of abnormal reaction of the patient, or of later complication, without mention of misadventure at the time of the procedure | CPT/HCPCS: 97605 ==

== ENCOUNTER 2020-07-02 08:50 | Outpatient (CLI) | payer MEDICARE ==
[2020-07-02] MEDS ORDERED: LIDOCAINE (4%) 40 MG/ML TOPICAL SOLN 50 ML BOTTLE TP ONE (10:31)
== END 2020-07-02 08:51 | disposition home or self-care (01) ==
LOC: WOUND 08:50
PROVIDERS: ATTEND Surgery
DX: T81.89XD Other complications of procedures, not elsewhere classified, subsequent encounter (principal); I10 Essential (primary) hypertension; E78.00 Pure hypercholesterolemia, unspecified; K21.9 Gastro-esophageal reflux disease without esophagitis; L02.31 Cutaneous abscess of buttock; E11.628 Type 2 diabetes mellitus with other skin complications; N76.89 Other specified inflammation of vagina and vulva; L73.2 Hidradenitis suppurativa; F41.9 Anxiety disorder, unspecified; F31.9 Bipolar disorder, unspecified; F17.290 Nicotine dependence, other tobacco product, uncomplicated; Z90.710 Acquired absence of both cervix and uterus; Z90.49 Acquired absence of other specified parts of digestive tract; Y83.8 Other surgical procedures as the cause of abnormal reaction of the patient, or of later complication, without mention of misadventure at the time of the procedure
CPT/HCPCS: 97605

== ENCOUNTER 2020-07-05 11:04 | Outpatient (CLI) | payer MEDICARE | END 2020-07-05 11:05 | disposition home or self-care (01) | LOC: WOUND 11:04 | PROVIDERS: ATTEND Surgery | DX: T81.89XD Other complications of procedures, not elsewhere classified, subsequent encounter (principal); E11.628 Type 2 diabetes mellitus with other skin complications; L73.2 Hidradenitis suppurativa; I10 Essential (primary) hypertension; E11.52 Type 2 diabetes mellitus with diabetic peripheral angiopathy with gangrene; I96 Gangrene, not elsewhere classified; E78.00 Pure hypercholesterolemia, unspecified; F41.9 Anxiety disorder, unspecified; F31.9 Bipolar disorder, unspecified; F17.210 Nicotine dependence, cigarettes, uncomplicated; Z90.710 Acquired absence of both cervix and uterus; Z90.49 Acquired absence of other specified parts of digestive tract; Y83.8 Other surgical procedures as the cause of abnormal reaction of the patient, or of later complication, without mention of misadventure at the time of the procedure | CPT/HCPCS: 97605 ==

== ENCOUNTER 2020-07-09 08:52 | Outpatient (CLI) | payer MEDICARE ==
[2020-07-09] MEDS ORDERED: LIDOCAINE (4%) 40 MG/ML TOPICAL SOLN 50 ML BOTTLE TP ONE (09:02)
== END 2020-07-09 08:53 | disposition home or self-care (01) ==
LOC: WOUND 08:52
PROVIDERS: ATTEND Surgery
DX: T81.89XD Other complications of procedures, not elsewhere classified, subsequent encounter (principal); E11.628 Type 2 diabetes mellitus with other skin complications; L73.2 Hidradenitis suppurativa; I10 Essential (primary) hypertension; E11.52 Type 2 diabetes mellitus with diabetic peripheral angiopathy with gangrene; I96 Gangrene, not elsewhere classified; E78.00 Pure hypercholesterolemia, unspecified; F41.9 Anxiety disorder, unspecified; F31.9 Bipolar disorder, unspecified; F17.210 Nicotine dependence, cigarettes, uncomplicated; Z90.710 Acquired absence of both cervix and uterus; Z90.49 Acquired absence of other specified parts of digestive tract; Y83.8 Other surgical procedures as the cause of abnormal reaction of the patient, or of later complication, without mention of misadventure at the time of the procedure

== ENCOUNTER 2020-07-16 09:48 | Outpatient (CLI) | payer MEDICARE ==
[2020-07-16] MEDS ORDERED: LIDOCAINE (4%) 40 MG/ML TOPICAL SOLN 50 ML BOTTLE TP ONE (11:48)
== END 2020-07-16 09:49 | disposition home or self-care (01) ==
LOC: WOUND 09:48
PROVIDERS: ATTEND Surgery
DX: T81.89XD Other complications of procedures, not elsewhere classified, subsequent encounter (principal); E11.628 Type 2 diabetes mellitus with other skin complications; L73.2 Hidradenitis suppurativa; I10 Essential (primary) hypertension; E11.52 Type 2 diabetes mellitus with diabetic peripheral angiopathy with gangrene; I96 Gangrene, not elsewhere classified; E78.00 Pure hypercholesterolemia, unspecified; F41.9 Anxiety disorder, unspecified; F31.9 Bipolar disorder, unspecified; F17.210 Nicotine dependence, cigarettes, uncomplicated; Z90.710 Acquired absence of both cervix and uterus; Z90.49 Acquired absence of other specified parts of digestive tract; Y83.8 Other surgical procedures as the cause of abnormal reaction of the patient, or of later complication, without mention of misadventure at the time of the procedure

== ENCOUNTER 2020-08-06 09:17 | Outpatient (CLI) | payer MEDICARE | END 2020-08-06 09:18 | disposition home or self-care (01) | LOC: WOUND 09:17 | PROVIDERS: ATTEND Surgery | DX: T81.89XD Other complications of procedures, not elsewhere classified, subsequent encounter (principal); E11.628 Type 2 diabetes mellitus with other skin complications; L73.2 Hidradenitis suppurativa; I10 Essential (primary) hypertension; E11.52 Type 2 diabetes mellitus with diabetic peripheral angiopathy with gangrene; I96 Gangrene, not elsewhere classified; E78.00 Pure hypercholesterolemia, unspecified; F41.9 Anxiety disorder, unspecified; F31.9 Bipolar disorder, unspecified; F17.210 Nicotine dependence, cigarettes, uncomplicated; Z90.710 Acquired absence of both cervix and uterus; Z90.49 Acquired absence of other specified parts of digestive tract; Y83.8 Other surgical procedures as the cause of abnormal reaction of the patient, or of later complication, without mention of misadventure at the time of the procedure | CPT/HCPCS: 99213; G0463 ==

== ENCOUNTER 2020-08-09 22:19 | Inpatient (IN) | payer MEDICARE ==
[2020-08-10 01:09] LABS: Basophils % (Auto) 0.1 % (0.0-1.8); Eosinophils # (Auto) 0.2 K/mm3 (0.0-0.4); Eosinophils % (Auto) 2.6 % (0.0-4.3); Hematocrit 35.8 % (30.3-42.9); Hemoglobin 11.9 gm/dl (10.1-14.3); Lymphocytes # (Auto) 3.2 K/mm3 (1.2-5.4); Lymphocytes % (Auto) 49.7 % (13.4-35.0); Mean Corpuscular HGB Conc 33 % (30-34); Mean Corpuscular Volume 98 fl (79-97); Monocytes # (Auto) 0.4 K/mm3 (0.0-0.8); Monocytes % (Auto) 6.6 % (0.0-7.3); Platelet Count 151 K/mm3 (140-440); Red Blood Count 3.67 M/mm3 (3.65-5.03); Red Cell Distribution Width 14.9 % (13.2-15.2)
[2020-08-10 01:28] LABS: Albumin 3.7 g/dL (3.9-5)
[2020-08-10] MEDS ORDERED: ONDANSETRON 4 MG/2 ML INJ IV ONE (02:29)
[2020-08-10] MEDS ORDERED: SODIUM CHLORIDE 0.9% 1000 ML 1,000 ML IV ONE (02:29)
[2020-08-10] MEDS ORDERED: HYDROmorphone 1 MG/1 ML INJ IV ONE ×2 (02:29→04:42)
--- NOTE | 2020-08-10 02:32 | Emergency Department Report ---
ED Abdominal Pain HPI - General Chief Complaint: Abdominal Pain Stated Complaint: ABD PAIN PUI?: No Time Seen by Provider: 08/10/20 02:25 Source: patient Mode of arrival: Ambulatory Limitations: No Limitations - History of Present Illness Initial Comments: Patient is a 40-year-old female that presents emergency room with complaints of severe abdominal pain. Patient states abdominal pain is in her lower abdomen radiating to her back. Patient also states she has bilateral flank pain. Patient states her pain is worsening. He states the pain is going on for 3 days. Patient denies nausea vomiting. Patient states the pain is worse with movement better with rest. Patient denies fever and chills. Patient denies dysuria. Patient denies diarrhea. Patient denies recent travel. Patient denies recent international travel. Patient denies exposure to the novel coronavirus. Patient denies sick contacts. Patient denies fever and chills. Patient denies cough. Patient denies diarrhea. Patient denies coming in contact with anybody with symptoms of the novel coronavirus. MD Complaint: abdominal pain -: Sudden Location: LLQ, RLQ Radiation: back Migration to: no migration Severity scale (0 -10): 5 Quality: sharp Consistency: constant Improves With: rest Worsens With: movement, other (Palpitations) - Related Data LMP (females 10-50): unknown Home Medications Medication Instructions Recorded Confirmed Last Taken Abacavir/Dolutegravir/Lamivudi 1 each PO DAILY 07/10/15 06/07/20 09/08/17 [Triumeq 600-50-300 mg Tablet] buPROPion XL [Wellbutrin XL] 150 mg PO QDAY 06/02/18 06/07/20 Unknown ALBUTEROL NEB's [Proventil 0.083% 2.5 mg IH TID PRN 04/15/19 06/07/20 Unknown NEBS] Lispro Insulin [HumaLOG] 0 unit SQ DAILY 04/15/19 06/07/20 12/29/19 Omeprazole 40 mg PO DAILY 04/15/19 06/07/20 Unknown Previous Rx's Medication Instructions Recorded Last Taken Type Cyclobenzaprine HCl [Flexeril 5 MG 5 mg PO QHS #10 tab 12/08/18 Unknown Rx TAB] Albuterol Mdi (or & Nicu Only) 2 puff IH QID PRN #8.5 gram 04/25/19 Unknown Rx [ProAir HFA Inhaler] Benzonatate [Tessalon Perles] 100 mg PO Q8HR #30 capsule 04/25/19 Unknown Rx Ibuprofen [Motrin 800 MG tab] 800 mg PO Q8HR PRN #20 tablet 04/25/19 Unknown Rx Promethazine [Phenergan] 25 mg PO Q8HR PRN #8 tab 08/26/19 Unknown Rx ARIPiprazole [Abilify TAB] 15 mg PO QDAY #30 12/31/19 Unknown Rx Acetaminophen/Codeine [Tylenol 1 tab PO Q6H PRN #20 tab 12/31/19 Unknown Rx /Codeine # 3 tab] AtorvaSTATin [Lipitor] 40 mg PO HS tablet 12/31/19 Unknown Rx Dulaglutide [Trulicity] 0.75 mg SQ QWEEK #1 12/31/19 Unknown Rx Gabapentin 800 mg PO TID capsule 12/31/19 Unknown Rx Insulin Lispro [Humalog] 0 unit SUB-Q ACHS vial 12/31/19 Unknown Rx Mirtazapine [Remeron 15mg TAB] 45 mg PO QHS #30 tablet 12/31/19 Unknown Rx Trazodone HCl 150 mg PO QHS PRN #30 12/31/19 Unknown Rx lisinopriL [Zestril TAB] 40 mg PO QDAY tablet 12/31/19 Unknown Rx Amoxicillin/Potassium Clav 1 each PO BID #10 tablet 06/21/20 Unknown Rx [Augmentin 875-125 Tablet] oxyCODONE /ACETAMINOPHEN [Percocet 1 tab PO Q6HR PRN #14 tablet 06/21/20 Unknown Rx 5/325] Allergies Allergy/AdvReac Type Severity Reaction Status Date / Time iodine Allergy Swelling Verified 08/26/19 12:57 sulfamethoxazole Allergy Rash Verified 08/26/19 12:57 [From Bactrim] trimethoprim [From Bactrim] Allergy Rash Verified 08/26/19 12:57 metformin AdvReac Nausea Verified 08/26/19 12:57 seafood Allergy Rash Uncoded 02/16/18 13:38 ED Review of Systems ROS: Stated complaint: ABD PAIN Other details as noted in HPI Constitutional: denies: chills, fever Eyes: denies: eye pain, eye discharge, vision change ENT: denies: ear pain, throat pain Respiratory: denies: cough, shortness of breath, wheezing Cardiovascular: denies: chest pain, palpitations Endocrine: no symptoms reported Gastrointestinal: abdominal pain. denies: diarrhea Genitourinary: denies: urgency, dysuria, discharge Musculoskeletal: denies: back pain, joint swelling, arthralgia Skin: denies: rash, lesions Neurological: denies: headache, weakness, paresthesias Psychiatric: denies: anxiety, depression Hematological/Lymphatic: denies: easy bleeding, easy bruising ED Past Medical Hx - Past Medical History Previous Medical History?: Yes Hx Hypertension: Yes Hx Heart Attack/AMI: No Hx Diabetes: Yes Hx Liver Disease: No Hx Renal Disease: No Hx Seizures: No Hx Psychiatric Treatment: Yes (anxiety depression) Hx Asthma: Yes (lasty inhaler use 03/2020) Hx COPD: No Hx HIV: Yes (last CD4 count within normal limits April 2019) Additional medical history: HIGH CHOLESTEROL - Surgical History Past Surgical History?: Yes Hx Pacemaker: No Hx Internal Defibrillator: No Hx Cholecystectomy: Yes Additional Surgical History: d&c x1, insulin pump placement, TOTAL HYSTERECTOMY, boil removal to R inner thigh - Social History Smoking Status: Current Every Day Smoker Substance Use Type: None - Medications Home Medications: Home Medications Medication Instructions Recorded Confirmed Last Taken Type Abacavir/Dolutegravir/Lamivudi 1 each PO DAILY 07/10/15 06/07/20 09/08/17 History [Triumeq 600-50-300 mg Tablet] buPROPion XL [Wellbutrin XL] 150 mg PO QDAY 06/02/18 06/07/20 Unknown History Cyclobenzaprine HCl [Flexeril 5 MG 5 mg PO QHS #10 tab 12/08/18 06/07/20 Unknown Rx TAB] ALBUTEROL NEB's [Proventil 0.083% 2.5 mg IH TID PRN 04/15/19 06/07/20 Unknown History NEBS] Lispro Insulin [HumaLOG] 0 unit SQ DAILY 04/15/19 06/07/20 12/29/19 History Omeprazole 40 mg PO DAILY 04/15/19 06/07/20 Unknown History Albuterol Mdi (or & Nicu Only) 2 puff IH QID PRN #8.5 gram 04/25/19 06/07/20 Unknown Rx [ProAir HFA Inhaler] Benzonatate [Tessalon Perles] 100 mg PO Q8HR #30 capsule 04/25/19 06/07/20 Unknown Rx Ibuprofen [Motrin 800 MG tab] 800 mg PO Q8HR PRN #20 tablet 04/25/19 06/07/20 Unknown Rx Promethazine [Phenergan] 25 mg PO Q8HR PRN #8 tab 08/26/19 06/07/20 Unknown Rx ARIPiprazole [Abilify TAB] 15 mg PO QDAY #30 12/31/19 06/07/20 Unknown Rx Acetaminophen/Codeine [Tylenol 1 tab PO Q6H PRN #20 tab 12/31/19 06/07/20 Unknown Rx /Codeine # 3 tab] AtorvaSTATin [Lipitor] 40 mg PO HS tablet 12/31/19 06/07/20 Unknown Rx Dulaglutide [Trulicity] 0.75 mg SQ QWEEK #1 12/31/19 06/07/20 Unknown Rx Gabapentin 800 mg PO TID capsule 12/31/19 06/07/20 Unknown Rx Insulin Lispro [Humalog] 0 unit SUB-Q ACHS vial 12/31/19 06/07/20 Unknown Rx Mirtazapine [Remeron 15mg TAB] 45 mg PO QHS #30 tablet 12/31/19 06/07/20 Unknown Rx Trazodone HCl 150 mg PO QHS PRN #30 12/31/19 06/07/20 Unknown Rx lisinopriL [Zestril TAB] 40 mg PO QDAY tablet 12/31/19 06/07/20 Unknown Rx Amoxicillin/Potassium Clav 1 each PO BID #10 tablet 06/21/20 Unknown Rx [Augmentin 875-125 Tablet] oxyCODONE /ACETAMINOPHEN [Percocet 1 tab PO Q6HR PRN #14 tablet 06/21/20 Unknown Rx 5/325] ED Physical Exam - General Limitations: No Limitations General appearance: alert, in no apparent distress - Head Head exam: Present: atraumatic, normocephalic - Eye Eye exam: Present: normal appearance - ENT ENT exam: Present: mucous membranes moist - Neck Neck exam: Present: normal inspection - Respiratory Respiratory exam: Present: normal lung sounds bilaterally. Absent: respiratory distress - Cardiovascular Cardiovascular Exam: Present: regular rate, normal rhythm. Absent: systolic mu rmur, diastolic murmur, rubs, gallop - GI/Abdominal GI/Abdominal exam: Present: soft, tenderness (Bilateral lower quadrant tenderness to palpation and bilateral flank tenderness.), normal bowel sounds - Rectal Rectal exam: Present: deferred - Extremities Exam Extremities exam: Present: normal inspection - Back Exam Back exam: Present: normal inspection - Neurological Exam Neurological exam: Present: alert, oriented X3 - Psychiatric Psychiatric exam: Present: normal affect, normal mood - Skin Skin exam: Present: warm, dry, intact, normal color. Absent: rash ED Course Vital Signs 08/10/20 08/10/20 08/10/20 00:45 04:10 04:11 Temperature 98.3 F Pulse Rate 95 H 98 H Respiratory 18 18 18 Rate Blood Pressure 156/76 Blood Pressure 195/100 [Right] O2 Sat by Pulse 97 100 Oximetry - Reevaluation(s) Reevaluation #1: Patient complaining of severe pain. Patient was given another dose of Dilaudid. 08/10/20 04:05 Reevaluation #2: I discussed all results with patient. I discussed plan of care with patient. Patient agrees with plan of care and admission. Patient to be admitted to the hospitalist service. 08/10/20 05:05 - Consultations Consultation #1: Hospitalist consulted for admission. Hospitalist to admit patient. 08/10/20 05:05 ED Medical Decision Making - Lab Data Result diagrams: 08/10/20 00:53 08/10/20 00:53 - Radiology Data Radiology results: report reviewed CT ABDOMEN AND PELVIS WITHOUT CONTRAST INDICATION / CLINICAL INFORMATION: Patient complains of lower abdominal pain. TECHNIQUE: Axial CT images were obtained through the abdomen and pelvis without IV contrast. All CT scans at this location are performed using CT dose reduction for ALARA by means of automated exposure control. COMPARISON: CT abdomen pelvis 06/06/2020 FINDINGS: LOWER CHEST: No significant abnormality. LIVER: No significant abnormality. GALLBLADDER: Surgically absent. BILE DUCTS: No significant abnormality. PANCREAS: No significant abnormality. SPLEEN: No significant abnormality. ADRENALS: No significant abnormality. RIGHT KIDNEY and URETER: Mild nonspecific perinephric stranding. Small right renal cyst. LEFT KIDNEY and URETER: Mild nonspecific perinephric stranding. Unchanged nonobstructive stone in the left upper pole. There is a small amount of air in the left intrarenal collecting system. STOMACH and SMALL BOWEL: No significant abnormality. COLON: No significant abnormality. APPENDIX: No significant abnormality. PERITONEUM: No free fluid. No free air. No fluid collection. LYMPH NODES: No significant adenopathy. AORTA and ARTERIES: No significant abnormality. IVC and VEINS: No significant abnormality. URINARY BLADDER: A small amount of air is again present in the urinary bladder. There is mild bladder wall thickening. REPRODUCTIVE ORGANS: Prior hysterectomy. ADDITIONAL FINDINGS: Rectus diastases. SKELETAL SYSTEM: No significant abnormality. IMPRESSION: 1. Mild bladder wall thickening with a small amount of air in the urinary bladder and a small amount of air in the left intrarenal collecting system. Correlate for history of instrumentation. If no such history is present, this may be seen in the setting of cystitis/ascending urinary tract infection, and correlation with urinalysis is recommended. 2. Unchanged nonobstructive left intrarenal stone. - Medical Decision Making Patient is a 40-year-old female that comes emergency room with bilateral flank pain, lower abdominal pain, back pain. Patient had labs done which were essentially unremarkable except for acute renal failure and elevated blood sugar. Patient had a CT scan of the abdomen to rule out acute processes and the CT was positive for pyelonephritis and cystitis. Patient clinical exam supports pyelonephritis with flank tenderness. Patient required multiple doses of Dilaudid. Patient given fluids in the ER. Patient also given Rocephin in the ER. Patient admitted to the hospital service for further evaluation treatment. Critical care time documented due to the multiple reassessments, prolonged time at the bedside, interpretation of diagnostics and labs. - Differential Diagnosis Gilles, UTI, lower abdominal pain, appendicitis, Critical Care Time: Yes Critical care time in (mins) excluding proc time.: 35 Critical care attestation.: If time is entered above; I have spent that time in minutes in the direct care of this critically ill patient, excluding procedure time. Critical Care Time: 35 minutes ED Disposition Clinical Impression: Flank pain, Pyelonephritis, Hyperglycemia Abdominal pain Qualifiers: Abdominal location: lower abdomen, unspecified Qualified Code(s): R10.30 - Lower abdominal pain, unspecified Renal failure Qualifiers: Renal failure chronicity: acute Acute renal failure type: unspecified Qualified Code(s): N17.9 - Acute kidney failure, unspecified UTI (urinary tract infection) Qualifiers: Urinary tract infection type: acute cystitis Hematuria presence: with hematuria Qualified Code(s): N30.01 - Acute cystitis with hematuria Disposition: 09 OP ADMIT IP TO THIS HOSP Is pt being admited?: Yes Does the pt Need Aspirin: No Condition: Critical Instructions: Abdominal Pain (ED) Time of Disposition: 05:05
[2020-08-10] MEDS ORDERED: diphenhydrAMINE 50 MG/ML VIAL IV ONE (03:55)
[2020-08-10 03:57] LABS: Bilirubin,Urine NEG (Negative); Blood,Urine MOD (Negative); Color,Urine Yellow (Yellow); Mucus,Urine FEW /HPF; Urobilinogen,Urine < 2.0 mg/dL (<2.0)
[2020-08-10 03:59] LABS: Protein,Urine >500 mg/dL (Negative)
--- NOTE | 2020-08-10 04:18 | Cat Scan Report ---
CT ABDOMEN AND PELVIS WITHOUT CONTRAST INDICATION / CLINICAL INFORMATION: Patient complains of lower abdominal pain. TECHNIQUE: Axial CT images were obtained through the abdomen and pelvis without IV contrast. All CT scans at [facility] [address] are performed using CT dose reduction for ALARA by means of automated exposure control. COMPARISON: CT abdomen pelvis 06/06/2020 FINDINGS: LOWER CHEST: No significant abnormality. LIVER: No significant abnormality. GALLBLADDER: Surgically absent. BILE DUCTS: No significant abnormality. PANCREAS: No significant abnormality. SPLEEN: No significant abnormality. ADRENALS: No significant abnormality. RIGHT KIDNEY and URETER: Mild nonspecific perinephric stranding. Small right renal cyst. LEFT KIDNEY and URETER: Mild nonspecific perinephric stranding. Unchanged nonobstructive stone in the left upper pole. There is a small amount of air in the left intrarenal collecting system. STOMACH and SMALL BOWEL: No significant abnormality. COLON: No significant abnormality. APPENDIX: No significant abnormality. PERITONEUM: No free fluid. No free air. No fluid collection. LYMPH NODES: No significant adenopathy. AORTA and ARTERIES: No significant abnormality. IVC and VEINS: No significant abnormality. URINARY BLADDER: A small amount of air is again present in the urinary bladder. There is mild bladder wall thickening. REPRODUCTIVE ORGANS: Prior hysterectomy. ADDITIONAL FINDINGS: Rectus diastases. SKELETAL SYSTEM: No significant abnormality. IMPRESSION: 1. Mild bladder wall thickening with a small amount of air in the urinary bladder and a small amount of air in the left intrarenal collecting system. Correlate for history of instrumentation. If no such history is present, this may be seen in the setting of cystitis/ascending urinary tract infection, a nd correlation with urinalysis is recommended. 2. Unchanged nonobstructive left intrarenal stone. Signer Name: Renee Merino MD Signed: 08/10/2020 4:13 AM Workstation Name: [email or web address]
[2020-08-10] MEDS ORDERED: cefTRIAXone/NS 2 GM/100 ML 2 GM/100 ML BAG IV ONE (05:01)
[2020-08-10] MEDS ORDERED: DEXTROSE 50% IN WATER (25GM) 50 ML SYRINGE IV PRN (05:27)
[2020-08-10] MEDS ORDERED: ONDANSETRON 4 MG/2 ML INJ IV PRN (05:27)
[2020-08-10] MEDS ORDERED: MAGNESIUM HYDROXIDE (MOM) ORAL LIQD UDC PO PRN (05:27)
[2020-08-10] MEDS ORDERED: ACETAMINOPHEN 325 MG TAB PO PRN (05:27)
--- NOTE | 2020-08-10 05:39 | History and Physical Report ---
History of Present Illness Date of examination: 08/10/20 Date of admission: 08/10/2020 Chief complaint: Abdominal pain History of present illness: 40-year-old female presenting to the emergency room today complaining of abdominal pain. Abdominal pain is said to be sharp and in the lower abdomen radiating towards the back. She has also had some bilateral flank pain. Symptoms has been ongoing for the past 3 days. Pain is said to be worse upon movement and feels better upon resting. She denies any fever or chills, no nausea vomiting, no diarrhea, no hematuria or dysuria. Patient denies any chest pain or shortness of breath. No headache or dizziness She denies any sick contacts and no recent travel. Denies any contact with anyone with COVID-19. Work-up in the emergency room today, urinalysis reveals a UTI. Chemistry reveals hyperglycemia with blood sugar in the 500s CT of the abdomen and pelvis is consistent with cystitis /ascending urinary trac t infection. There is also an unchanged nonobstructive left intrarenal stone. Patient has been started on IV fluid, empiric IV antibiotics for UTI/pyelonephritis. Past History Past Medical History: diabetes, hypertension, other (Anxiety and depression, asthma, HIV positivelast CD4 count within normal limits in April 2019) Past Surgical History: cholecystectomy, Other ( d&c x1, insulin pump placement, TOTAL HYSTERECTOMY, boil removal to R inner thigh) Social history: smoking (Current daily smoker) Medications and Allergies Allergies Allergy/AdvReac Type Severity Reaction Status Date / Time iodine Allergy Swelling Verified 08/26/19 12:57 sulfamethoxazole Allergy Rash Verified 08/26/19 12:57 [From Bactrim] trimethoprim [From Bactrim] Allergy Rash Verified 08/26/19 12:57 metformin AdvReac Nausea Verified 08/26/19 12:57 seafood Allergy Rash Uncoded 02/16/18 13:38 Home Medications Medication Instructions Recorded Confirmed Last Taken Type Abacavir/Dolutegravir/Lamivudi 1 each PO DAILY 07/10/15 06/07/20 09/08/17 History [Triumeq 600-50-300 mg Tablet] buPROPion XL [Wellbutrin XL] 150 mg PO QDAY 06/02/18 06/07/20 Unknown History Cyclobenzaprine HCl [Flexeril 5 MG 5 mg PO QHS #10 tab 12/08/18 06/07/20 Unknown Rx TAB] ALBUTEROL NEB's [Proventil 0.083% 2.5 mg IH TID PRN 04/15/19 06/07/20 Unknown History NEBS] Lispro Insulin [HumaLOG] 0 unit SQ DAILY 04/15/19 06/07/20 12/29/19 History Omeprazole 40 mg PO DAILY 04/15/19 06/07/20 Unknown History Albuterol Mdi (or & Nicu Only) 2 puff IH QID PRN #8.5 gram 04/25/19 06/07/20 Unknown Rx [ProAir HFA Inhaler] Benzonatate [Tessalon Perles] 100 mg PO Q8HR #30 capsule 04/25/19 06/07/20 Unknown Rx Ibuprofen [Motrin 800 MG tab] 800 mg PO Q8HR PRN #20 tablet 04/25/19 06/07/20 Unknown Rx Promethazine [Phenergan] 25 mg PO Q8HR PRN #8 tab 08/26/19 06/07/20 Unknown Rx ARIPiprazole [Abilify TAB] 15 mg PO QDAY #30 12/31/19 06/07/20 Unknown Rx Acetaminophen/Codeine [Tylenol 1 tab PO Q6H PRN #20 tab 12/31/19 06/07/20 Unknown Rx /Codeine # 3 tab] AtorvaSTATin [Lipitor] 40 mg PO HS tablet 12/31/19 06/07/20 Unknown Rx Dulaglutide [Trulicity] 0.75 mg SQ QWEEK #1 12/31/19 06/07/20 Unknown Rx Gabapentin 800 mg PO TID capsule 12/31/19 06/07/20 Unknown Rx Insulin Lispro [Humalog] 0 unit SUB-Q ACHS vial 12/31/19 06/07/20 Unknown Rx Mirtazapine [Remeron 15mg TAB] 45 mg PO QHS #30 tablet 12/31/19 06/07/20 Unknown Rx Trazodone HCl 150 mg PO QHS PRN #30 12/31/19 06/07/20 Unknown Rx lisinopriL [Zestril TAB] 40 mg PO QDAY tablet 12/31/19 06/07/20 Unknown Rx Amoxicillin/Potassium Clav 1 each PO BID #10 tablet 06/21/20 Unknown Rx [Augmentin 875-125 Tablet] oxyCODONE /ACETAMINOPHEN [Percocet 1 tab PO Q6HR PRN #14 tablet 06/21/20 Unknown Rx 5/325] Active Meds: Active Medications Acetaminophen (Acetaminophen 325 Mg Tab) 650 mg PO Q4H PRN PRN Reason: Pain MILD(1-3)/Fever >100.5/CHAVARRIA Dextrose (Dextrose 50% In Water (25gm) 50 Ml Syringe) 50 ml IV Q30MIN PRN; Protocol PRN Reason: Hypoglycemia Heparin Sodium (Porcine) (Heparin 5,000 Unit/1 Ml Vial) 5,000 unit SUB-Q Q8HR GRIS Hydromorphone HCl (Hydromorphone 1 Mg/1 Ml Inj) 0.5 mg IV Q3H PRN PRN Reason: Pain , Severe (7-10) Sodium Chloride (Nacl 0.9% 1000 Ml) 1,000 mls @ 150 mls/hr IV DIRECT GRIS Ceftriaxone Sodium (Rocephin/Ns 1 Gm/50 Ml) 1 gm in 50 mls @ 100 mls/hr IV Q24H GRIS; Protocol Insulin Human Lispro (Insulin Lispro 100 Unit/Ml) 0 unit SUB-Q ACHS GRIS; Protocol Magnesium Hydroxide (Magnesium Hydroxide (Mom) Oral Liqd Udc) 30 ml PO Q4H PRN PRN Reason: Constipation Ondansetron HCl (Ondansetron 4 Mg/2 Ml Inj) 4 mg IV Q8H PRN PRN Reason: Nausea And Vomiting Sodium Chloride (Sodium Chloride 0.9% 10 Ml Flush Syringe) 10 ml IV BID GRIS Sodium Chloride (Sodium Chloride 0.9% 10 Ml Flush Syringe) 10 ml IV PRN PRN PRN Reason: LINE FLUSH Review of Systems Constitutional: no fever, no chills Ears, nose, mouth and throat: no nasal congestion, no sore throat Cardiovascular: no chest pain, no palpitations Respiratory: no cough, no shortness of breath Gastrointestinal: abdominal pain, no nausea, no vomiting, no diarrhea Genitourinary Female: pelvic pain, flank pain, no dysuria, no urinary frequency, no hematuria Musculoskeletal: no neck pain, no low back pain Integumentary: no rash, no pruritis Neurological: no headaches, no confusion Psychiatric: no anxiety, no depression Endocrine: no polyphagia, no polydipsia, no polyuria, no nocturia Exam - Constitutional Vitals: Temp Pulse Resp BP Pulse Ox 98.3 F 98 H 18 195/100 100 08/10/20 00:45 08/10/20 04:11 08/10/20 04:11 08/10/20 04:11 08/10/20 04:11 General appearance: Present: no acute distress, well-nourished, obese - EENT Eyes: Present: PERRL, EOM intact. Absent: scleral icterus ENT: hearing intact, clear oral mucosa, dentition normal - Neck Neck: Present: supple, normal ROM - Respiratory Respiratory effort: normal Respiratory: bilateral: CTA - Cardiovascular Rhythm: regular Heart Sounds: Present: S1 & S2. Absent: gallop, systolic murmur, diastolic murmur, rub, click - Extremities Extremities: no ischemia, pulses intact, pulses symmetrical, No edema, normal temperature, normal color, Full ROM Peripheral Pulses: within normal limits - Abdominal General gastrointestinal: Present: soft, tender (Tenderness in the suprapubic region with minimal guarding. No rebound tenderness), distended (Mildly distended), normal bowel sounds, other (Bilateral costovertebral angle tenderness). Absent: mass - Integumentary Integumentary: Present: clear, warm, dry. Absent: rash - Musculoskeletal Musculoskeletal: strength equal bilaterally - Psychiatric Psychiatric: appropriate mood/affect, intact judgment & insight, memory intact, cooperative - Neurologic Neurologic: CNII-XII intact, no focal deficits, moves all extremities Results - Labs CBC & Chem 7: 08/10/20 00:53 08/10/20 00:53 Labs: Abnormal lab results 08/10/20 08/10/20 08/10/20 Range/Units 00:53 00:53 Unknown MCV 98 H (79-97) fl MCH 33 H (28-32) pg Lymph % (Auto) 49.7 H (13.4-35.0) % Sodium 130 L (137-145) mmol/L Chloride 94.2 L (98-107) mmol/L BUN 29 H (7-17) mg/dL Creatinine 1.7 H (0.6-1.2) mg/dL Glucose 544 H* (65-100) mg/dL Alkaline Phosphatase 130 H (35-129) units/L Albumin 3.7 L (3.9-5) g/dL Urine WBC (Auto) 105.0 H (0.0-6.0) /HPF Assessment and Plan - Patient Problems (1) Pyelonephritis Current Visit: Yes Status: Acute Plan to address problem: Patient commenced on empiric IV antibiotics and IV fluid. We will await urine culture results. (2) Abdominal pain Current Visit: Yes Status: Acute Qualifiers: Abdominal location: lower abdomen, unspecified Qualified Code(s): R10.30 - Lower abdominal pain, unspecified Plan to address problem: Probably secondary to the cystitis. We will continue on IV fluid and analgesic medication. (3) Renal failure Current Visit: Yes Status: Acute Qualifiers: Renal failure chronicity: acute Acute renal failure type: unspecified Qualified Code(s): N17.9 - Acute kidney failure, unspecified Plan to address problem: Consult placed to nephrology for evaluation and recommendation. Meanwhile we will continue on IV fluid. Will monitor BUN and creatinine. CT of the abdomen and pelvis reveals a nonobstructive left intrarenal stone. (4) Diabetes mellitus type 2 in obese Current Visit: No Status: Acute Plan to address problem: Patient placed on IV fluid and subcutaneous insulin. We will monitor Accu-Cheks closely. (5) Hypertension Current Visit: No Status: Chronic Qualifiers: Hypertension type: essential hypertension Qualified Code(s): I10 - Essential (primary) hypertension Plan to address problem: We will resume routine home medications and monitor vital signs closely. Patient also placed on IV hydralazine as needed for optimal blood pressure control. (6) DVT prophylaxis Current Visit: No Status: Acute Plan to address problem: Patient placed on subcutaneous heparin. (7) Full code status Current Visit: No Status: Acute Plan to address problem: Patient is full code.
[2020-08-10] MEDS: HYDROmorphone 1 MG/1 ML INJ IV PRN ×6 (06:25→23:30)
[2020-08-10] MEDS: SODIUM CHLORIDE 0.9% 1000 ML 1,000 ML IV SCH (07:49)
[2020-08-10] MEDS: HEPARIN 5,000 UNIT/1 ML VIAL SUB-Q SCH ×3 (07:51→22:16)
[2020-08-10] MEDS: INSULIN LISPRO 100 UNIT/ML SUB-Q SCH ×5 (07:54→22:34)
[2020-08-10] MEDS ORDERED: NON-FORMULARY EACH (Trazodone Hcl [Trazodone Hcl] 150 MG Tablet) PO PRN (07:56)
[2020-08-10] MEDS ORDERED: INSULIN GLARGINE 100 UNITS/ML SUB-Q ONE (08:30)
[2020-08-10] MEDS: GABAPENTIN 400 MG CAP PO SCH ×3 (08:46→20:15)
[2020-08-10] MEDS: METOCLOPRAMIDE 10 MG/2 ML INJ IV SCH ×3 (08:47→18:46)
--- NOTE | 2020-08-10 09:59 | Consultation ---
History of Present Illness - Reason for Consult Consult date: 08/10/20 acute renal failure - History of Present Illness 40-year-old woman who presents with abdominal pain, found to have UTI, hy perglycemia. Denies any prior known history of kidney disease and has never seen a metal mockup maker. At time of consult, still having abdominal pain, nausea. Denies edema, dyspnea, abnormal urination. CT of the abdomen and pelvis shows cystitis /ascending urinary tract infection. There is also an unchanged nonobstructive left intrarenal stone. Past History Past Medical History: diabetes, hypertension, other (Anxiety and depression, asthma, HIV positivelast CD4 count within normal limits in April 2019) Past Surgical History: cholecystectomy, Other ( d&c x1, insulin pump placement, TOTAL HYSTERECTOMY, boil removal to R inner thigh) Social history: smoking (Current daily smoker) Medications and Allergies Allergies Allergy/AdvReac Type Severity Reaction Status Date / Time iodine Allergy Swelling Verified 08/26/19 12:57 sulfamethoxazole Allergy Rash Verified 08/26/19 12:57 [From Bactrim] trimethoprim [From Bactrim] Allergy Rash Verified 08/26/19 12:57 metformin AdvReac Nausea Verified 08/26/19 12:57 seafood Allergy Rash Uncoded 02/16/18 13:38 Home Medications Medication Instructions Recorded Confirmed Last Taken Type Abacavir/Dolutegravir/Lamivudi 1 each PO DAILY 07/10/15 06/07/20 09/08/17 History [Triumeq 600-50-300 mg Tablet] buPROPion XL [Wellbutrin XL] 150 mg PO QDAY 06/02/18 06/07/20 Unknown History Cyclobenzaprine HCl [Flexeril 5 MG 5 mg PO QHS #10 tab 12/08/18 06/07/20 Unknown Rx TAB] ALBUTEROL NEB's [Proventil 0.083% 2.5 mg IH TID PRN 04/15/19 06/07/20 Unknown History NEBS] Lispro Insulin [HumaLOG] 0 unit SQ DAILY 04/15/19 06/07/20 12/29/19 History Omeprazole 40 mg PO DAILY 04/15/19 06/07/20 Unknown History Albuterol Mdi (or & Nicu Only) 2 puff IH QID PRN #8.5 gram 04/25/19 06/07/20 Unknown Rx [ProAir HFA Inhaler] Benzonatate [Tessalon Perles] 100 mg PO Q8HR #30 capsule 04/25/19 06/07/20 Unknown Rx Ibuprofen [Motrin 800 MG tab] 800 mg PO Q8HR PRN #20 tablet 04/25/19 06/07/20 Unknown Rx Promethazine [Phenergan] 25 mg PO Q8HR PRN #8 tab 08/26/19 06/07/20 Unknown Rx ARIPiprazole [Abilify TAB] 15 mg PO QDAY #30 12/31/19 06/07/20 Unknown Rx Acetaminophen/Codeine [Tylenol 1 tab PO Q6H PRN #20 tab 12/31/19 06/07/20 Unk nown Rx /Codeine # 3 tab] AtorvaSTATin [Lipitor] 40 mg PO HS tablet 12/31/19 06/07/20 Unknown Rx Dulaglutide [Trulicity] 0.75 mg SQ QWEEK #1 12/31/19 06/07/20 Unknown Rx Gabapentin 800 mg PO TID capsule 12/31/19 06/07/20 Unknown Rx Insulin Lispro [Humalog] 0 unit SUB-Q ACHS vial 12/31/19 06/07/20 Unknown Rx Mirtazapine [Remeron 15mg TAB] 45 mg PO QHS #30 tablet 12/31/19 06/07/20 Unknown Rx Trazodone HCl 150 mg PO QHS PRN #30 12/31/19 06/07/20 Unknown Rx lisinopriL [Zestril TAB] 40 mg PO QDAY tablet 12/31/19 06/07/20 Unknown Rx Amoxicillin/Potassium Clav 1 each PO BID #10 tablet 06/21/20 Unknown Rx [Augmentin 875-125 Tablet] oxyCODONE /ACETAMINOPHEN [Percocet 1 tab PO Q6HR PRN #14 tablet 06/21/20 Unknown Rx 5/325] Active Meds: Active Medications Acetaminophen (Acetaminophen 325 Mg Tab) 650 mg PO Q4H PRN PRN Reason: Pain MILD(1-3)/Fever >100.5/CHAVARRIA Aripiprazole (Aripiprazole 15 Mg Tab) 15 mg PO QDAY GRIS Atorvastatin Calcium (Atorvastatin 40 Mg Tab) 40 mg PO HS GRIS Cyclobenzaprine HCl (Cyclobenzaprine 10 Mg Tab) 5 mg PO QHS GRIS Dextrose (Dextrose 50% In Water (25gm) 50 Ml Syringe) 50 ml IV Q30MIN PRN; Protocol PRN Reason: Hypoglycemia Gabapentin (Gabapentin 400 Mg Cap) 800 mg PO TID [facility] Last Admin: 08/10/20 08:46 Dose: 800 mg Documented by: Heparin Sodium (Porcine) (Heparin 5,000 Unit/1 Ml Vial) 5,000 unit SUB-Q Q8HR GRIS Last Admin: 08/10/20 07:51 Dose: 5,000 unit Documented by: Hydralazine HCl (Hydralazine 20 Mg/1 Ml Inj) 10 mg IV Q4HR PRN PRN Reason: Blood Pressure Hydromorphone HCl (Hydromorphone 1 Mg/1 Ml Inj) 0.5 mg IV Q3H PRN PRN Reason: Pain , Severe (7-10) Last Admin: 08/10/20 06:25 Dose: 0.5 mg Documented by: Sodium Chloride (Nacl 0.9% 1000 Ml) 1,000 mls @ 150 mls/hr IV DIRECT GRIS Last Admin: 08/10/20 07:49 Dose: 150 mls/hr Documented by: Ceftriaxone Sodium (Rocephin/Ns 1 Gm/50 Ml) 1 gm in 50 mls @ 100 mls/hr IV Q24H GRIS; Protocol Insulin Glargine (Insulin Glargine 100 Units/Ml) 30 units SUB-Q QHS GRIS Insulin Human Lispro (Insulin Lispro 100 Unit/Ml) 0 unit SUB-Q ACHS GRIS; Protocol Last Admin: 08/10/20 07:54 Dose: 10 unit Documented by: Magnesium Hydroxide (Magnesium Hydroxide (Mom) Oral Liqd Udc) 30 ml PO Q4H PRN PRN Reason: Constipation Metoclopramide HCl (Metoclopramide 10 Mg/2 Ml Inj) 10 mg IV Q6HR GRIS Last Admin: 08/10/20 08:47 Dose: 10 mg Documented by: Mirtazapine (Mirtazapine 15 Mg Tab) 45 mg PO QHS GRIS Miscellaneous Medication (Abacavir/Dolutegravir/Lamivudi [Triumeq 600-50-300 Mg Tablet]) 1 each PO DAILY [facility] Ondansetron HCl (Ondansetron 4 Mg/2 Ml Inj) 4 mg IV Q8H PRN PRN Reason: Nausea And Vomiting Sodium Chloride (Sodium Chloride 0.9% 10 Ml Flush Syringe) 10 ml IV BID GRIS Sodium Chloride (Sodium Chloride 0.9% 10 Ml Flush Syringe) 10 ml IV PRN PRN PRN Reason: LINE FLUSH Trazodone HCl (Trazodone 100 Mg Tab) 150 mg PO QHS PRN PRN Reason: Insomnia Review of Systems All systems: negative (as per HPI) Exam - Vital Signs Vital signs: Vital Signs Temp Pulse Resp BP Pulse Ox 98.3 F 95 H 18 156/76 97 08/10/20 00:45 08/10/20 00:45 08/10/20 00:45 08/10/20 00:45 08/10/20 00:45 - Physical Exam Narrative exam: Constitutional: no acute distress Head: NC/AT Neck: supple Lungs: clear to auscultation CV: RRR, no M/R/G Abdomen: soft, non-tender, bowel sounds present Back: nontender Extremities: no edema, pulses WNL Skin: intact Neuro: no focal deficits, alert and oriented x4 Results - Lab Results 08/10/20 00:53 08/10/20 00:53 Most recent lab results Calcium 9.0 mg/dL (8.4-10.2) 08/10/20 00:53 Assessment and Plan This is a 40 year old woman who presents with abdominal pain, found to have cystitis, hyperglycemia # SYLWIA: likely pre-renal injury due to hyperglycemia and UTI. Creatinine 1.7 on admission, 1.2 in June 2020. - agree with IVF - agree with holding KAYLEE/ARB - daily labs - renally dose meds - avoid nephrotoxins - renal diet # Hyperglycemia: A1c very elevated; DM management per primary # Hypernatremia: likely pseudohyponatremia in setting of hyperglycemia # Pyelonephritis/UTI: IV antibiotics per primary, urine culture pending # HTN: BP high initially, improved with IV hydralazine. Would recommend po amlodipine or nifedipine as holding KAYLEE/ARB with SYLWIA
[2020-08-10] MEDS ORDERED: [UNRECOGNIZED DRUG - OTHER] PO SCH ×2 (10:00)
[2020-08-10] MEDS ORDERED: ABACAVIR 300 MG TAB PO SCH (10:00)
[2020-08-10] MEDS ORDERED: DOLUTEGRAVIR 50 MG TAB PO SCH (10:00)
[2020-08-10] MEDS ORDERED: LAMIVUDI PO SCH ×2 (10:00)
[2020-08-10] MEDS ORDERED: ABACAVIR PO SCH ×2 (10:00)
[2020-08-10] MEDS ORDERED: DOLUTEGRAVIR PO SCH ×2 (10:00)
[2020-08-10] MEDS: ARIPiprazole 15 MG TAB PO SCH (10:19)
[2020-08-10] MEDS ORDERED: diphenhydrAMINE 50 MG/ML VIAL IV PRN (10:39)
[2020-08-10] MEDS ORDERED: traZODone 100 MG TAB PO PRN (20:00)
[2020-08-10] MEDS ORDERED: NON-FORMULARY EACH (Cyclobenzaprine Hcl [Flexeril 5 Mg Tab] 5 MG Tablet) PO SCH (22:00)
[2020-08-10] MEDS ORDERED: INSULIN GLARGINE 100 UNITS/ML SUB-Q SCH (22:00)
[2020-08-10] MEDS: CYCLOBENZAPRINE 10 MG TAB PO SCH (22:15)
[2020-08-10] MEDS: hydrALAZINE 20 MG/1 ML INJ IV PRN (22:16)
[2020-08-10] MEDS: MIRTAZAPINE 15 MG TAB PO SCH (22:17)
[2020-08-10] MEDS: ABACAVIR PO SCH (22:18)
[2020-08-10] MEDS: [UNRECOGNIZED DRUG - OTHER] PO SCH (22:18)
[2020-08-10] MEDS: LAMIVUDI PO SCH (22:18)
[2020-08-10] MEDS: DOLUTEGRAVIR PO SCH (22:18)
[2020-08-10] MEDS: diphenhydrAMINE 50 MG/ML VIAL IV PRN (22:34)
[2020-08-11] MEDS: METOCLOPRAMIDE 10 MG/2 ML INJ IV SCH ×4 (02:15→17:36)
[2020-08-11] MEDS: HYDROmorphone 1 MG/1 ML INJ IV PRN ×5 (02:31→20:29)
[2020-08-11] MEDS: hydrALAZINE 20 MG/1 ML INJ IV PRN (02:31)
[2020-08-11] MEDS: SODIUM CHLORIDE 0.9% 1000 ML 1,000 ML IV SCH (05:43)
[2020-08-11] MEDS: HEPARIN 5,000 UNIT/1 ML VIAL SUB-Q SCH ×3 (05:43→21:54)
[2020-08-11] MEDS: cefTRIAXone/NS 1 GM/50 ML 1 GM/50 ML BAG IV SCH (05:44)
[2020-08-11 06:47] LABS: Basophils % (Auto) 0.2 % (0.0-1.8); Eosinophils # (Auto) 0.1 K/mm3 (0.0-0.4); Eosinophils % (Auto) 2.2 % (0.0-4.3); Hematocrit 33.3 % (30.3-42.9); Hemoglobin 10.9 gm/dl (10.1-14.3); Lymphocytes # (Auto) 2.4 K/mm3 (1.2-5.4); Lymphocytes % (Auto) 42.5 % (13.4-35.0); Mean Corpuscular HGB Conc 33 % (30-34); Mean Corpuscular Volume 97 fl (79-97); Monocytes # (Auto) 0.3 K/mm3 (0.0-0.8); Monocytes % (Auto) 6.1 % (0.0-7.3); Platelet Count 137 K/mm3 (140-440); Red Blood Count 3.42 M/mm3 (3.65-5.03); Red Cell Distribution Width 14.4 % (13.2-15.2)
[2020-08-11 06:55] LABS: INR 0.95 (0.87-1.13)
[2020-08-11 07:05] LABS: Calcium 8.4 mg/dL (8.4-10.2)
[2020-08-11] MEDS: INSULIN LISPRO 100 UNIT/ML SUB-Q SCH ×8 (07:30→21:55)
[2020-08-11] MEDS: GABAPENTIN 400 MG CAP PO SCH ×3 (08:00→21:53)
--- NOTE | 2020-08-11 08:37 | Progress Note ---
Assessment and Plan Assessment and plan: (1) Pyelonephritis Current Visit: Yes Status: Acute Plan to address problem: Patient commenced on empiric IV antibiotics and IV fluid. We will await urine culture results. (2) Abdominal pain Current Visit: Yes Status: Acute Qualifiers: Abdominal location: lower abdomen, unspecified Qualified Code(s): R10.30 - Lower abdominal pain, unspecified Plan to address problem: Probably secondary to the cystitis. We will continue on IV fluid and analgesic medication. (3) Renal failure Current Visit: Yes Status: Acute Qualifiers: Renal failure chronicity: acute Acute renal failure type: unspecified Qualified Code(s): N17.9 - Acute kidney failure, unspecified Plan to address problem: Consult placed to nephrology for evaluation and recommendation. Meanwhile we will continue on IV fluid. Will monitor BUN and creatinine. CT of the abdomen and pelvis reveals a nonobstructive left intrarenal stone. (4) Diabetes mellitus type 2 in obese Current Visit: No Status: Acute Plan to address problem: Patient placed on IV fluid and subcutaneous insulin. We will monitor Accu-Cheks closely. (5) Hypertension Current Visit: No Status: Chronic Qualifiers: Hypertension type: essential hypertension Qualified Code(s): I10 - Essential (primary) hypertension Plan to address problem: We will resume routine home medications and monitor vital signs closely. Patient also placed on IV hydralazine as needed for optimal blood pressure contr ol. (6) DVT prophylaxis Current Visit: No Status: Acute Plan to address problem: Patient placed on subcutaneous heparin. (7) Full code status Current Visit: No Status: Acute Plan to address problem: Patient is full code. 08/11/2020 -Patient is on IV ceftriaxone for ascending UTI, urine culture ordered. Patient had no fever or chills. -Patient has gastroparesis and she is on Reglan scheduled. -Patient was on insulin pump. Currently patient is on sliding scale insulin, AC insulin and Lantus. Blood sugar is high and will adjust her insulin regimen. -SYLWIA resolved History Interval history: Patient was seen and evaluated this morning Patient is complaining abdominal pain, nausea Hospitalist Physical - Physical exam Narrative exam: Not in cardiopulmonary distress. The patient is obese. Vital signs as documented. Head exam is unremarkable. No scleral icterus . Neck is without jugular venous distension, thyromegaly, or carotid bruits. Lungs are clear to auscultation. Cardiac exam reveals regular rate and Rhythm. Abdominal exam reveals normal bowel sounds, nontender, no organomegaly. Extremities are nonedematous and both femoral and pedal pulses are normal. 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 No focal weakness. - Constitutional Vitals: Temp Pulse Resp BP Pulse Ox 98.8 F 72 17 130/63 98 08/11/20 05:59 08/11/20 05:59 08/11/20 05:59 08/11/20 05:59 08/11/20 05:59 General appearance: Present: no acute distress, well-nourished, obese Results - Labs CBC & Chem 7: 08/11/20 06:15 08/11/20 06:15 Labs: Laboratory Last Values WBC 5.6 K/mm3 (4.5-11.0) 08/11/20 06:15 RBC 3.42 M/mm3 (3.65-5.03) L 08/11/20 06:15 Hgb 10.9 gm/dl (10.1-14.3) 08/11/20 06:15 Hct 33.3 % (30.3-42.9) 08/11/20 06:15 MCV 97 fl (79-97) 08/11/20 06:15 MCH 32 pg (28-32) 08/11/20 06:15 MCHC 33 % (30-34) 08/11/20 06:15 RDW 14.4 % (13.2-15.2) 08/11/20 06:15 Plt Count 137 K/mm3 (140-440) L 08/11/20 06:15 Lymph % (Auto) 42.5 % (13.4-35.0) H 08/11/20 06:15 [place] % (Auto) 6.1 % (0.0-7.3) 08/11/20 06:15 Eos % (Auto) 2.2 % (0.0-4.3) 08/11/20 06:15 Baso % (Auto) 0.2 % (0.0-1.8) 08/11/20 06:15 Lymph # (Auto) 2.4 K/mm3 (1.2-5.4) 08/11/20 06:15 Castro # (Auto) 0.3 K/mm3 (0.0-0.8) 08/11/20 06:15 Eos # (Auto) 0.1 K/mm3 (0.0-0.4) 08/11/20 06:15 Baso # (Auto) 0.0 K/mm3 (0.0-0.1) 08/11/20 06:15 Seg Neutrophils % 49.0 % (40.0-70.0) 08/11/20 06:15 Seg Neutrophils # 2.8 K/mm3 (1.8-7.7) 08/11/20 06:15 PT 12.5 Sec. (12.2-14.9) 08/11/20 06:15 INR 0.95 (0.87-1.13) 08/11/20 06:15 Sodium 137 mmol/L (137-145) D 08/11/20 06:15 Potassium 4.5 mmol/L (3.6-5.0) 08/11/20 06:15 Chloride 103.6 mmol/L (98-107) 08/11/20 06:15 Carbon Dioxide 23 mmol/L (22-30) 08/11/20 06:15 Anion Gap 15 mmol/L 08/11/20 06:15 BUN 24 mg/dL (7-17) H 08/11/20 06:15 Creatinine 1.2 mg/dL (0.6-1.2) 08/11/20 06:15 Estimated GFR 50 ml/min 08/11/20 06:15 BUN/Creatinine Ratio 20 % 08/11/20 06:15 Glucose 402 mg/dL (65-100) H 08/11/20 06:15 POC Glucose 393 mg/dL (70-105) H 08/10/20 22:23 Hemoglobin A1c 11.1 % (4-6) H 08/10/20 07:00 Calcium 8.4 mg/dL (8.4-10.2) 08/11/20 06:15 Total Bilirubin 0.20 mg/dL (0.1-1.2) 08/10/20 00:53 AST 21 units/L (5-40) 08/10/20 00:53 ALT 34 units/L (7-56) 08/10/20 00:53 Alkaline Phosphatase 130 units/L (35-129) H 08/10/20 00:53 Total Protein 7.4 g/dL (6.3-8.2) 08/10/20 00:53 Albumin 3.7 g/dL (3.9-5) L 08/10/20 00:53 Albumin/Globulin Ratio 1.0 % 08/10/20 00:53 Urine Color Yellow (Yellow) 08/10/20 Unknown Urine Turbidity Cloudy (Clear) 08/10/20 Unknown Urine pH 5.0 (5.0-7.0) 08/10/20 Unknown Ur Specific [place] 1.021 (1.003-1.030) 08/10/20 Unknown Urine Protein >500 mg/dL (Negative) 08/10/20 Unknown Urine Glucose (UA) >=500 mg/dL (Negative) 08/10/20 Unknown Urine Ketones Neg mg/dL (Negative) 08/10/20 Unknown Urine Blood Mod (Negative) 08/10/20 Unknown Urine Nitrite Neg (Negative) 08/10/20 Unknown Urine Bilirubin Neg (Negative) 08/10/20 Unknown Urine Urobilinogen < 2.0 mg/dL (<2.0) 08/10/20 Unknown Ur Leukocyte Esterase Sm (Negative) 08/10/20 Unknown Urine WBC (Auto) 105.0 /HPF (0.0-6.0) H 08/10/20 Unknown Urine RBC (Auto) 4.0 /HPF (0.0-6.0) 08/10/20 Unknown U Epithel Cells (Auto) 2.0 /HPF (0-13.0) 08/10/20 Unknown Urine Mucus Few /HPF 08/10/20 Unknown Perry/IV: Voiding Method Toilet Active Medications - Current Medications Current Medications: Generic Name Dose Route Start Last Admin Trade Name Freq PRN Reason Stop Dose Admin Acetaminophen 650 mg 08/10/20 05:27 Acetaminophen 325 Mg Tab PO Q4H PRN Pain MILD(1-3)/Fever >100.5/CHAVARRIA Aripiprazole 15 mg 08/10/20 10:00 08/10/20 10:19 Aripiprazole 15 Mg Tab PO Not Given QDAY GRIS Atorvastatin Calcium 40 mg 08/10/20 22:00 08/10/20 22:15 Atorvastatin 40 Mg Tab PO 40 mg HS GRIS Administration Cyclobenzaprine HCl 5 mg 08/10/20 22:00 08/10/20 22:15 Cyclobenzaprine 10 Mg Tab PO 5 mg QHS RGIS Administration Dextrose 50 ml 08/10/20 05:27 Dextrose 50% In Water (25gm) 50 Ml Syringe IV Q30MIN PRN Hypoglycemia Protocol Diphenhydramine HCl 12.5 mg 08/10/20 15:58 08/10/20 22:34 Diphenhydramine 50 Mg/Ml Vial IV 12.5 mg Q4H PRN Administration Itching Gabapentin 800 mg 08/10/20 08:00 08/10/20 20:15 Gabapentin 400 Mg Cap PO 800 mg TID GRIS Administration Heparin Sodium (Porcine) 5,000 unit 08/10/20 06:00 08/11/20 05:43 Heparin 5,000 Unit/1 Ml Vial SUB-Q 5,000 unit Q8HR GRIS Administration Hydralazine HCl 10 mg 08/10/20 05:32 08/11/20 02:31 Hydralazine 20 Mg/1 Ml Inj IV 10 mg Q4HR PRN Administration Blood Pressure Hydromorphone HCl 0.5 mg 08/10/20 05:27 08/11/20 05:43 Hydromorphone 1 Mg/1 Ml Inj IV 0.5 mg Q3H PRN Administration Pain , Severe (7-10) Sodium Chloride 1,000 mls @ 150 mls/hr 08/10/20 05:30 08/11/20 05:43 Nacl 0.9% 1000 Ml IV 150 mls/hr DIRECT GRIS Administration Ceftriaxone Sodium 1 gm in 50 mls @ 100 mls/hr 08/11/20 06:00 08/11/20 05:44 Rocephin/Ns 1 Gm/50 Ml IV 100 mls/hr Q24H GRIS Administration Protocol Insulin Glargine 40 units 08/11/20 08:30 Insulin Glargine 100 Units/Ml SUB-Q QHS GRIS Insulin Human Lispro 0 unit 08/10/20 07:30 08/10/20 22:34 Insulin Lispro 100 Unit/Ml SUB-Q 10 unit ACHS GRIS Administration Protocol Insulin Human Lispro 12 unit 08/11/20 08:31 Insulin Lispro 100 Unit/Ml SUB-Q AC GRIS Magnesium Hydroxide 30 ml 08/10/20 05:27 Magnesium Hydroxide (Mom) Oral Liqd Udc PO Q4H PRN Constipation Metoclopramide HCl 10 mg 08/10/20 08:00 08/11/20 05:43 Metoclopramide 10 Mg/2 Ml Inj IV 10 mg Q6HR GRIS Administration Mirtazapine 45 mg 08/10/20 22:00 08/10/20 22:17 Mirtazapine 15 Mg Tab PO Not Given QHS GRIS Miscellaneous Medication 1 each 08/10/20 22:00 08/10/20 22:18 Abacavir/Dolutegravir/Lamivudi [Triumeq 600-50-300 Mg Tablet] PO Not Given QHS GRIS Ondansetron HCl 4 mg 08/10/20 05:27 08/10/20 22:43 Ondansetron 4 Mg/2 Ml Inj IV 4 mg Q8H PRN Administration Nausea And Vomiting Sodium Chloride 10 ml 08/10/20 10:00 08/10/20 22:17 Sodium Chloride 0.9% 10 Ml Flush Syringe IV 10 ml BID GRIS Administration Sodium Chloride 10 ml 08/10/20 05:27 Sodium Chloride 0.9% 10 Ml Flush Syringe IV PRN PRN LINE FLUSH Trazodone HCl 150 mg 08/10/20 20:00 Trazodone 100 Mg Tab PO QHS PRN Insomnia Nutrition/Malnutrition Assess - Dietary Evaluation Nutrition/Malnutrition Findings: Nutrition Notes Start: 08/10/20 11:02 Freq: Status: Active Protocol: Document 08/10/20 11:02 GENTRY (Rec: 08/10/20 11:04 GENTRY [id number]) Nutrition Notes Need for Assessment generated from: MD Order Initial or Follow up Brief Note Current Diagnosis Acute Kidney Injury,Diabetes, Hypertension Other Pertinent Diagnosis HIV, pyelonephritis Current Diet Cardiac, Consistent CHO Subjective/Other Information MD order for diet education. Pt got heart healthy diet edu on 06/07. Pt on hold in ED. Nutrition Intervention Follow-Up By: 08/15/20 Additional Comments FU for diet education needs
[2020-08-11] MEDS: ARIPiprazole 15 MG TAB PO SCH (10:00)
[2020-08-11] MEDS: diphenhydrAMINE 50 MG/ML VIAL IV PRN ×3 (10:16→20:28)
--- NOTE | 2020-08-11 11:47 | Progress Note ---
Assessment and Plan This is a 40 year old woman who presents with abdominal pain, found to have cystitis, hyperglycemia # SYLWIA: likely pre-renal injury due to hyperglycemia and UTI. Creatinine improved with IVF from 1.7 on admission->1.2 this AM, was 1.2 in June 2020. 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 Remains stable Subjective Date of service: 08/11/20 Interval history: Continues to have abdominal pain, otherwise feeling better Objective - Exam Narrative Exam: Constitutional: no acute distress Head: NC/AT Neck: supple Lungs: clear to auscultation CV: RRR, no M/R/G Abdomen: soft, non-tender, bowel sounds present Back: nontender Extremities: no edema, pulses WNL Skin: intact Neuro: no focal deficits, alert and oriented x4 - Vital Signs Vital signs: Vital Signs - 12hr 08/11/20 08/11/20 08/11/20 02:08 03:38 05:59 Temperature 98.8 F Pulse Rate 98 H 72 Respiratory 17 Rate Blood Pressure 173/88 119/54 130/63 O2 Sat by Pulse 96 98 Oximetry - Lab 08/11/20 06:15 08/11/20 06:15 Most recent lab results Calcium 8.4 mg/dL (8.4-10.2) 08/11/20 06:15 Medications & Allergies - Medications Allergies/Adverse Reactions: Allergies iodine Allergy (Verified 08/26/19 12:57) Swelling sulfamethoxazole [From Bactrim] Allergy (Verified 08/26/19 12:57) Rash trimethoprim [From Bactrim] Allergy (Verified 08/26/19 12:57) Rash metformin Adverse Reaction (Verified 08/26/19 12:57) Nausea seafood Allergy (Uncoded 02/16/18 13:38) Rash Home Medications: Home Medications Medication Instructions Recorded Confirmed Last Taken Type Abacavir/Dolutegravir/Lamivudi 1 each PO DAILY 07/10/15 08/11/20 09/08/17 History [Triumeq 600-50-300 mg Tablet] buPROPion XL [Wellbutrin XL] 150 mg PO QDAY 06/02/18 08/11/20 Unknown History Cyclobenzaprine HCl [Flexeril 5 MG 5 mg PO QHS #10 tab 12/08/18 08/11/20 Unknown Rx TAB] ALBUTEROL NEB's [Proventil 0.083% 2.5 mg IH TID PRN 04/15/19 08/11/20 Unknown History NEBS] Lispro Insulin [HumaLOG] 0 unit SQ DAILY 04/15/19 08/11/20 12/29/19 History Omeprazole 40 mg PO DAILY 04/15/19 08/11/20 Unknown History Albuterol Mdi (or & Nicu Only) 2 puff IH QID PRN #8.5 gram 04/25/19 08/11/20 Unknown Rx [ProAir HFA Inhaler] Benzonatate [Tessalon Perles] 100 mg PO Q8HR #30 capsule 04/25/19 08/11/20 Unknown Rx Ibuprofen [Motrin 800 MG tab] 800 mg PO Q8HR PRN #20 tablet 04/25/19 08/11/20 Unknown Rx Promethazine [Phenergan] 25 mg PO Q8HR PRN #8 tab 08/26/19 08/11/20 Unknown Rx ARIPiprazole [Abilify TAB] 15 mg PO QDAY #30 12/31/19 08/11/20 Unknown Rx Acetaminophen/Codeine [Tylenol 1 tab PO Q6H PRN #20 tab 12/31/19 08/11/20 Unknown Rx /Codeine # 3 tab] AtorvaSTATin [Lipitor] 40 mg PO HS tablet 12/31/19 08/11/20 Unknown Rx Dulaglutide [Trulicity] 0.75 mg SQ QWEEK #1 12/31/19 08/11/20 Unknown Rx Gabapentin 800 mg PO TID capsule 12/31/19 08/11/20 Unknown Rx Insulin Lispro [Humalog] 0 unit SUB-Q ACHS vial 12/31/19 08/11/20 Unknown Rx Mirtazapine [Remeron 15mg TAB] 45 mg PO QHS #30 tablet 12/31/19 08/11/20 Unknown Rx Trazodone HCl 150 mg PO QHS PRN #30 12/31/19 08/11/20 Unknown Rx lisinopriL [Zestril TAB] 40 mg PO QDAY tablet 12/31/19 08/11/20 Unknown Rx Amoxicillin/Potassium Clav 1 each PO BID #10 tablet 06/21/20 08/11/20 Unknown Rx [Augmentin 875-125 Tablet] oxyCODONE /ACETAMINOPHEN [Percocet 1 tab PO Q6HR PRN #14 tablet 06/21/20 08/11/20 Unknown Rx 5/325] Active Medications: Generic Name Dose Route Start Last Admin Trade Name Freq PRN Reason Stop Dose Admin Acetaminophen 650 mg 08/10/20 05:27 Acetaminophen 325 Mg Tab PO Q4H PRN Pain MILD(1-3)/Fever >100.5/CHAVARRIA Aripiprazole 15 mg 08/10/20 10:00 08/10/20 10:19 Aripiprazole 15 Mg Tab PO Not Given QDAY GRIS Atorvastatin Calcium 40 mg 08/10/20 22:00 08/10/20 22:15 Atorvastatin 40 Mg Tab PO 40 mg HS GRIS Administration Cyclobenzaprine HCl 5 mg 08/10/20 22:00 08/10/20 22:15 Cyclobenzaprine 10 Mg Tab PO 5 mg QHS GRIS Administration Dextrose 50 ml 08/10/20 05:27 Dextrose 50% In Water (25gm) 50 Ml Syringe IV Q30MIN PRN Hypoglycemia Protocol Diphenhydramine HCl 12.5 mg 08/10/20 15:58 08/11/20 10:16 Diphenhydramine 50 Mg/Ml Vial IV 12.5 mg Q4H PRN Administration Itching Gabapentin 800 mg 08/10/20 08:00 08/11/20 08:00 Gabapentin 400 Mg Cap PO 800 mg TID GRIS Administration Heparin Sodium (Porcine) 5,000 unit 08/10/20 06:00 08/11/20 05:43 Heparin 5,000 Unit/1 Ml Vial SUB-Q 5,000 unit Q8HR GRIS Administration Hydralazine HCl 10 mg 08/10/20 05:32 08/11/20 02:31 Hydralazine 20 Mg/1 Ml Inj IV 10 mg Q4HR PRN Administration Blood Pressure Hydromorphone HCl 0.5 mg 08/10/20 05:27 08/11/20 10:03 Hydromorphone 1 Mg/1 Ml Inj IV 0.5 mg Q3H PRN Administration Pain , Severe (7-10) Ceftriaxone Sodium 1 gm in 50 mls @ 100 mls/hr 08/11/20 06:00 08/11/20 05:44 Rocephin/Ns 1 Gm/50 Ml IV 100 mls/hr Q24H GRIS Administration Protocol Insulin Glargine 40 units 08/11/20 22:00 Insulin Glargine 100 Units/Ml SUB-Q QHS GRIS Insulin Human Lispro 0 unit 08/10/20 07:30 08/11/20 07:30 Insulin Lispro 100 Unit/Ml SUB-Q 10 unit ACHS [facility] Administration Protocol Insulin Human Lispro 12 unit 08/11/20 09:00 08/11/20 09:00 Insulin Lispro 100 Unit/Ml SUB-Q 12 unit AC GRIS Administration Magnesium Hydroxide 30 ml 08/10/20 05:27 Magnesium Hydroxide (Mom) Oral Liqd Udc PO Q4H PRN Constipation Metoclopramide HCl 10 mg 08/10/20 08:00 08/11/20 05:43 Metoclopramide 10 Mg/2 Ml Inj IV 10 mg Q6HR [facility] Administration Mirtazapine 45 mg 08/10/20 22:00 08/10/20 22:17 Mirtazapine 15 Mg Tab PO Not Given QHS [facility] Miscellaneous Medication 1 each 08/10/20 22:00 08/10/20 22:18 Abacavir/Dolutegravir/Lamivudi [Triumeq 600-50-300 Mg Tablet] PO Not Given QHS [facility] Ondansetron HCl 4 mg 08/10/20 05:27 08/10/20 22:43 Ondansetron 4 Mg/2 Ml Inj IV 4 mg Q8H PRN Administration Nausea And Vomiting Sodium Chloride 10 ml 08/10/20 10:00 08/11/20 10:03 Sodium Chloride 0.9% 10 Ml Flush Syringe IV 10 ml BID GRIS Administration Sodium Chloride 10 ml 08/10/20 05:27 Sodium Chloride 0.9% 10 Ml Flush Syringe IV PRN PRN LINE FLUSH Trazodone HCl 150 mg 08/10/20 20:00 Trazodone 100 Mg Tab PO QHS PRN Insomnia
[2020-08-11] MEDS: INSULIN GLARGINE 100 UNITS/ML SUB-Q SCH (21:54)
[2020-08-11] MEDS: MIRTAZAPINE 15 MG TAB PO SCH (21:54)
[2020-08-11] MEDS: CYCLOBENZAPRINE 10 MG TAB PO SCH (21:54)
[2020-08-11] MEDS: [UNRECOGNIZED DRUG - OTHER] PO SCH (21:56)
[2020-08-11] MEDS: DOLUTEGRAVIR PO SCH (21:56)
[2020-08-11] MEDS: LAMIVUDI PO SCH (21:56)
[2020-08-11] MEDS: ABACAVIR PO SCH (21:56)
[2020-08-12] MEDS: METOCLOPRAMIDE 10 MG/2 ML INJ IV SCH ×4 (00:44→18:19)
[2020-08-12] MEDS: HYDROmorphone 1 MG/1 ML INJ IV PRN ×3 (00:44→09:20)
[2020-08-12] MEDS: diphenhydrAMINE 50 MG/ML VIAL IV PRN ×4 (04:49→21:56)
[2020-08-12] MEDS: HEPARIN 5,000 UNIT/1 ML VIAL SUB-Q SCH ×3 (05:08→21:53)
[2020-08-12] MEDS: cefTRIAXone/NS 1 GM/50 ML 1 GM/50 ML BAG IV SCH (06:57)
[2020-08-12] MEDS: INSULIN LISPRO 100 UNIT/ML SUB-Q SCH ×7 (07:30→22:13)
[2020-08-12 07:49] LABS: Calcium 8.4 mg/dL (8.4-10.2)
[2020-08-12] MEDS: GABAPENTIN 400 MG CAP PO SCH ×3 (08:00→21:00)
[2020-08-12] MEDS: ARIPiprazole 15 MG TAB PO SCH (09:23)
--- NOTE | 2020-08-12 09:29 | Progress Note ---
Assessment and Plan Assessment and plan: (1) Pyelonephritis Current Visit: Yes Status: Acute Plan to address problem: Patient commenced on empiric IV antibiotics and IV fluid. We will await urine culture results. (2) Abdominal pain Current Visit: Yes Status: Acute Qualifiers: Abdominal location: lower abdomen, unspecified Qualified Code(s): R10.30 - Lower abdominal pain, unspecified Plan to address problem: Probably secondary to the cystitis. We will continue on IV fluid and analgesic medication. (3) Renal failure Current Visit: Yes Status: Acute Qualifiers: Renal failure chronicity: acute Acute renal failure type: unspecified Qualified Code(s): N17.9 - Acute kidney failure, unspecified Plan to address problem: Consult placed to nephrology for evaluation and recommendation. Meanwhile we will continue on IV fluid. Will monitor BUN and creatinine. CT of the abdomen and pelvis reveals a nonobstructive left intrarenal stone. (4) Diabetes mellitus type 2 in obese Current Visit: No Status: Acute Plan to address problem: Patient placed on IV fluid and subcutaneous insulin. We will monitor Accu-Cheks closely. (5) Hypertension Current Visit: No Status: Chronic Qualifiers: Hypertension type: essential hypertension Qualified Code(s): I10 - Essential (primary) hypertension Plan to address problem: We will resume routine home medications and monitor vital signs closely. Patient also placed on IV hydralazine as needed for optimal blood pressure contr ol. (6) DVT prophylaxis Current Visit: No Status: Acute Plan to address problem: Patient placed on subcutaneous heparin. (7) Full code status Current Visit: No Status: Acute Plan to address problem: Patient is full code. 08/11/2020 -Patient is on IV ceftriaxone for ascending UTI, urine culture ordered. Patient had no fever or chills. -Patient has gastroparesis and she is on Reglan scheduled. -Patient was on insulin pump. Currently patient is on sliding scale insulin, AC insulin and Lantus. Blood sugar is high and will adjust her insulin regimen. -SYLWIA resolved 08/12/2020 -Patient is on ceftriaxone for ascending UTI. Urine culture is pending. -Patient's abdominal pain and vomiting is getting better -Patient's A1c was 11.1 and is on insulin pump, here I put her on Lantus 40 units nightly, sliding scale insulin and AC Humalog. But despite that blood sugar is very high. I will increase Lantus and AC Humalog. Patient was drinking regular gingerale and I have counseled the patient about not to drink any sugary snacks and patient agreed. We will monitor her blood sugar today and patient can be discharged tomorrow. History Interval history: Patient was seen and evaluated this morning Patient is complaining abdominal pain, nausea Patient was drinking soda Hospitalist Physical - Physical exam Narrative exam: Not in cardiopulmonary distress. The patient is obese. Vital signs as documented. Head exam is unremarkable. No scleral icterus . Neck is without jugular venous distension, thyromegaly, or carotid bruits. Lungs are clear to auscultation. Cardiac exam reveals regular rate and Rhythm. Abdominal exam reveals normal bowel sounds, nontender, no organomegaly. Extremities are nonedematous and both femoral and pedal pulses are normal. 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 No focal weakness. - Constitutional Vitals: Temp Pulse Resp BP Pulse Ox 98.2 F 93 H 16 181/99 98 08/12/20 04:28 08/11/20 22:00 08/12/20 04:28 08/12/20 04:28 08/11/20 22:00 General appearance: Present: no acute distress, well-nourished, obese Results - Labs CBC & Chem 7: 08/11/20 06:15 08/12/20 06:19 Labs: Laboratory Last Values WBC 5.6 K/mm3 (4.5-11.0) 08/11/20 06:15 RBC 3.42 M/mm3 (3.65-5.03) L 08/11/20 06:15 Hgb 10.9 gm/dl (10.1-14.3) 08/11/20 06:15 Hct 33.3 % (30.3-42.9) 08/11/20 06:15 MCV 97 fl (79-97) 08/11/20 06:15 MCH 32 pg (28-32) 08/11/20 06:15 MCHC 33 % (30-34) 08/11/20 06:15 RDW 14.4 % (13.2-15.2) 08/11/20 06:15 Plt Count 137 K/mm3 (140-440) L 08/11/20 06:15 Lymph % (Auto) 42.5 % (13.4-35.0) H 08/11/20 06:15 [place] % (Auto) 6.1 % (0.0-7.3) 08/11/20 06:15 Eos % (Auto) 2.2 % (0.0-4.3) 08/11/20 06:15 Baso % (Auto) 0.2 % (0.0-1.8) 08/11/20 06:15 Lymph # (Auto) 2.4 K/mm3 (1.2-5.4) 08/11/20 06:15 [place] # (Auto) 0.3 K/mm3 (0.0-0.8) 08/11/20 06:15 Eos # (Auto) 0.1 K/mm3 (0.0-0.4) 08/11/20 06:15 Baso # (Auto) 0.0 K/mm3 (0.0-0.1) 08/11/20 06:15 Seg Neutrophils % 49.0 % (40.0-70.0) 08/11/20 06:15 Seg Neutrophils # 2.8 K/mm3 (1.8-7.7) 08/11/20 06:15 PT 12.5 Sec. (12.2-14.9) 08/11/20 06:15 INR 0.95 (0.87-1.13) 08/11/20 06:15 Sodium 135 mmol/L (137-145) L 08/12/20 06:19 Potassium 4.4 mmol/L (3.6-5.0) 08/12/20 06:19 Chloride 103.8 mmol/L (98-107) 08/12/20 06:19 Carbon Dioxide 23 mmol/L (22-30) 08/12/20 06:19 Anion Gap 13 mmol/L 08/12/20 06:19 BUN 20 mg/dL (7-17) H 08/12/20 06:19 Creatinine 1.1 mg/dL (0.6-1.2) 08/12/20 06:19 Estimated GFR 55 ml/min 08/12/20 06:19 BUN/Creatinine Ratio 18 % 08/12/20 06:19 Glucose 372 mg/dL (65-100) H 08/12/20 06:19 POC Glucose 354 mg/dL (70-105) H 08/12/20 07:29 Hemoglobin A1c 11.1 % (4-6) H 08/10/20 07:00 Calcium 8.4 mg/dL (8.4-10.2) 08/12/20 06:19 Total Bilirubin 0.20 mg/dL (0.1-1.2) 08/10/20 00:53 AST 21 units/L (5-40) 08/10/20 00:53 ALT 34 units/L (7-56) 08/10/20 00:53 Alkaline Phosphatase 130 units/L (35-129) H 08/10/20 00:53 Total Protein 7.4 g/dL (6.3-8.2) 08/10/20 00:53 Albumin 3.7 g/dL (3.9-5) L 08/10/20 00:53 Albumin/Globulin Ratio 1.0 % 08/10/20 00:53 Urine Color Yellow (Yellow) 08/10/20 Unknown Urine Turbidity Cloudy (Clear) 08/10/20 Unknown Urine pH 5.0 (5.0-7.0) 08/10/20 Unknown Ur Specific [place] 1.021 (1.003-1.030) 08/10/20 Unknown Urine Protein >500 mg/dL (Negative) 08/10/20 Unknown Urine Glucose (UA) >=500 mg/dL (Negative) 08/10/20 Unknown Urine Ketones Neg mg/dL (Negative) 08/10/20 Unknown Urine Blood Mod (Negative) 08/10/20 Unknown Urine Nitrite Neg (Negative) 08/10/20 Unknown Urine Bilirubin Neg (Negative) 08/10/20 Unknown Urine Urobilinogen < 2.0 mg/dL (<2.0) 08/10/20 Unknown Ur Leukocyte Esterase Sm (Negative) 08/10/20 Unknown Urine WBC (Auto) 105.0 /HPF (0.0-6.0) H 08/10/20 Unknown Urine RBC (Auto) 4.0 /HPF (0.0-6.0) 08/10/20 Unknown U Epithel Cells (Auto) 2.0 /HPF (0-13.0) 08/10/20 Unknown Urine Mucus Few /HPF 08/10/20 Unknown Perry/IV: Voiding Method Toilet Active Medications - Current Medications Current Medications: Generic Name Dose Route Start Last Admin Trade Name Freq PRN Reason Stop Dose Admin Acetaminophen 650 mg 08/10/20 05:27 Acetaminophen 325 Mg Tab PO Q4H PRN Pain MILD(1-3)/Fever >100.5/CHAVARRIA Aripiprazole 15 mg 08/10/20 10:00 08/12/20 09:23 Aripiprazole 15 Mg Tab PO 15 mg QDAY GRIS Administration Atorvastatin Calcium 40 mg 08/10/20 22:00 08/11/20 21:54 Atorvastatin 40 Mg Tab PO 40 mg HS GRIS Administration Cyclobenzaprine HCl 5 mg 08/10/20 22:00 08/11/20 21:54 Cyclobenzaprine 10 Mg Tab PO 5 mg QHS GRIS Administration Dextrose 50 ml 08/10/20 05:27 Dextrose 50% In Water (25gm) 50 Ml Syringe IV Q30MIN PRN Hypoglycemia Protocol Diphenhydramine HCl 12.5 mg 08/10/20 15:58 08/12/20 09:22 Diphenhydramine 50 Mg/Ml Vial IV 12.5 mg Q4H PRN Administration Itching Gabapentin 800 mg 08/10/20 08:00 08/12/20 08:00 Gabapentin 400 Mg Cap PO 800 mg TID GRIS Administration Heparin Sodium (Porcine) 5,000 unit 08/10/20 06:00 08/12/20 05:08 Heparin 5,000 Unit/1 Ml Vial SUB-Q 5,000 unit Q8HR GRIS Administration Hydralazine HCl 10 mg 08/10/20 05:32 08/11/20 02:31 Hydralazine 20 Mg/1 Ml Inj IV 10 mg Q4HR PRN Administration Blood Pressure Hydromorphone HCl 0.5 mg 08/10/20 05:27 08/12/20 09:20 Hydromorphone 1 Mg/1 Ml Inj IV 0.5 mg Q3H PRN Administration Pain , Severe (7-10) Ceftriaxone Sodium 1 gm in 50 mls @ 100 mls/hr 08/11/20 06:00 08/12/20 06:57 Rocephin/Ns 1 Gm/50 Ml IV 100 mls/hr Q24H GRIS Administration Protocol Insulin Glargine 40 units 08/11/20 22:00 08/11/20 21:54 Insulin Glargine 100 Units/Ml SUB-Q 40 units QHS GRIS Administration Insulin Human Lispro 0 unit 08/10/20 07:30 08/12/20 07:30 Insulin Lispro 100 Unit/Ml SUB-Q 10 unit ACHS GRIS Administration Protocol Insulin Human Lispro 15 unit 08/12/20 09:25 Insulin Lispro 100 Unit/Ml SUB-Q AC GRIS Magnesium Hydroxide 30 ml 08/10/20 05:27 Magnesium Hydroxide (Mom) Oral Liqd Udc PO Q4H PRN Constipation Metoclopramide HCl 10 mg 08/10/20 08:00 08/12/20 05:12 Metoclopramide 10 Mg/2 Ml Inj IV 10 mg Q6HR GRIS Administration Mirtazapine 45 mg 08/10/20 22:00 08/11/20 21:54 Mirtazapine 15 Mg Tab PO 45 mg QHS GRIS Administration Miscellaneous Medication 1 each 08/10/20 22:00 08/11/20 21:56 Abacavir/Dolutegravir/Lamivudi [Triumeq 600-50-300 Mg Tablet] PO 1 each QHS GRIS Administration Ondansetron HCl 4 mg 08/10/20 05:27 08/10/20 22:43 Ondansetron 4 Mg/2 Ml Inj IV 4 mg Q8H PRN Administration Nausea And Vomiting Sodium Chloride 10 ml 08/10/20 10:00 08/12/20 09:23 Sodium Chloride 0.9% 10 Ml Flush Syringe IV 10 ml BID GRIS Administration Sodium Chloride 10 ml 08/10/20 05:27 Sodium Chloride 0.9% 10 Ml Flush Syringe IV PRN PRN LINE FLUSH Trazodone HCl 150 mg 08/10/20 20:00 Trazodone 100 Mg Tab PO QHS PRN Insomnia Nutrition/Malnutrition Assess - Dietary Evaluation Nutrition/Malnutrition Findings: Nutrition Notes Start: 08/10/20 11:02 Freq: Status: Active Protocol: Document 08/10/20 11:02 GENTRY (Rec: 08/10/20 11:04 GENTRY [email or web address]) Nutrition Notes Need for Assessment generated from: MD Order Initial or Follow up Brief Note Current Diagnosis Acute Kidney Injury,Diabetes, Hypertension Other Pertinent Diagnosis HIV, pyelonephritis Current Diet Cardiac, Consistent CHO Subjective/Other Information MD order for diet education. Pt got heart healthy diet edu on 06/07. Pt on hold in ED. Nutrition Intervention Follow-Up By: 08/15/20 Additional Comments FU for diet education needs
[2020-08-12] MEDS ORDERED: KETOROLAC 30 MG/1 ML INJ IV PRN (10:31)
[2020-08-12] MEDS: oxyCODONE /ACETAMINOPHEN 5-325MG TAB PO PRN ×2 (13:16→21:53)
--- NOTE | 2020-08-12 15:00 | Progress Note ---
Assessment and Plan This is a 40 year old woman who presents with abdominal pain, found to have cystitis, hyperglycemia # SYLWIA: likely pre-renal injury due to hyperglycemia and UTI. Creatinine improved with IVF from 1.7 on admission->1.2->1.1 this AM, was 1.2 in June 2020. 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 Now high again, would consider starting amlodipine for BP control ahead of discharge Subjective Date of service: 08/12/20 Interval history: Resting this afternoon in bed Objective - Exam Narrative Exam: Constitutional: no acute distress Head: NC/AT Neck: supple Lungs: clear to auscultation CV: RRR, no M/R/G Abdomen: soft, non-tender, bowel sounds present Back: nontender Extremities: no edema, pulses WNL Skin: intact Neuro: no focal deficits, alert and oriented x4 - Vital Signs Vital signs: Vital Signs - 12hr 08/12/20 04:28 Temperature 98.2 F Respiratory 16 Rate Blood Pressure 181/99 - Lab 08/11/20 06:15 08/12/20 06:19 Most recent lab results Calcium 8.4 mg/dL (8.4-10.2) 08/12/20 06:19 Medications & Allergies - Medications Allergies/Adverse Reactions: Allergies iodine Allergy (Verified 08/26/19 12:57) Swelling sulfamethoxazole [From Bactrim] Allergy (Verified 08/26/19 12:57) Rash trimethoprim [From Bactrim] Allergy (Verified 08/26/19 12:57) Rash metformin Adverse Reaction (Verified 08/26/19 12:57) Nausea seafood Allergy (Uncoded 02/16/18 13:38) Rash Home Medications: Home Medications Medication Instructions Recorded Confirmed Last Taken Type Abacavir/Dolutegravir/Lamivudi 1 each PO DAILY 07/10/15 08/11/20 09/08/17 History [Triumeq 600-50-300 mg Tablet] buPROPion XL [Wellbutrin XL] 150 mg PO QDAY 06/02/18 08/11/20 Unknown History Cyclobenzaprine HCl [Flexeril 5 MG 5 mg PO QHS #10 tab 12/08/18 08/11/20 Unknown Rx TAB] ALBUTEROL NEB's [Proventil 0.083% 2.5 mg IH TID PRN 04/15/19 08/11/20 Unknown History NEBS] Lispro Insulin [HumaLOG] 0 unit SQ DAILY 04/15/19 08/11/20 12/29/19 History Omeprazole 40 mg PO DAILY 04/15/19 08/11/20 Unknown History Albuterol Mdi (or & Nicu Only) 2 puff IH QID PRN #8.5 gram 04/25/19 08/11/20 Unknown Rx [ProAir HFA Inhaler] Benzonatate [Tessalon Perles] 100 mg PO Q8HR #30 capsule 04/25/19 08/11/20 Unknown Rx Ibuprofen [Motrin 800 MG tab] 800 mg PO Q8HR PRN #20 tablet 04/25/19 08/11/20 Unknown Rx Promethazine [Phenergan] 25 mg PO Q8HR PRN #8 tab 08/26/19 08/11/20 Unknown Rx ARIPiprazole [Abilify TAB] 15 mg PO QDAY #30 12/31/19 08/11/20 Unknown Rx Acetaminophen/Codeine [Tylenol 1 tab PO Q6H PRN #20 tab 12/31/19 08/11/20 Unknown Rx /Codeine # 3 tab] AtorvaSTATin [Lipitor] 40 mg PO HS tablet 12/31/19 08/11/20 Unknown Rx Dulaglutide [Trulicity] 0.75 mg SQ QWEEK #1 12/31/19 08/11/20 Unknown Rx Gabapentin 800 mg PO TID capsule 12/31/19 08/11/20 Unknown Rx Insulin Lispro [Humalog] 0 unit SUB-Q ACHS vial 12/31/19 08/11/20 Unknown Rx Mirtazapine [Remeron 15mg TAB] 45 mg PO QHS #30 tablet 12/31/19 08/11/20 Unknown Rx Trazodone HCl 150 mg PO QHS PRN #30 12/31/19 08/11/20 Unknown Rx lisinopriL [Zestril TAB] 40 mg PO QDAY tablet 12/31/19 08/11/20 Unknown Rx Amoxicillin/Potassium Clav 1 each PO BID #10 tablet 06/21/20 08/11/20 Unknown Rx [Augmentin 945125 Tablet] oxyCODONE /ACETAMINOPHEN [Percocet 1 tab PO Q6HR PRN #14 tablet 06/21/20 08/11/20 Unknown Rx 5/325] Active Medications: Generic Name Dose Route Start Last Admin Trade Name Freq PRN Reason Stop Dose Admin Acetaminophen 650 mg 08/10/20 05:27 Acetaminophen 325 Mg Tab PO Q4H PRN Pain MILD(1-3)/Fever >100.5/CHAVARRIA Aripiprazole 15 mg 08/10/20 10:00 08/12/20 09:23 Aripiprazole 15 Mg Tab PO 15 mg QDAY GRIS Administration Atorvastatin Calcium 40 mg 08/10/20 22:00 08/11/20 21:54 Atorvastatin 40 Mg Tab PO 40 mg HS GRIS Administration Cyclobenzaprine HCl 5 mg 08/10/20 22:00 08/11/20 21:54 Cyclobenzaprine 10 Mg Tab PO 5 mg QHS GRIS Administration Dextrose 50 ml 08/10/20 05:27 Dextrose 50% In Water (25gm) 50 Ml Syringe IV Q30MIN PRN Hypoglycemia Protocol Diphenhydramine HCl 12.5 mg 08/10/20 15:58 08/12/20 09:22 Diphenhydramine 50 Mg/Ml Vial IV 12.5 mg Q4H PRN Administration Itching Gabapentin 800 mg 08/10/20 08:00 08/12/20 13:16 Gabapentin 400 Mg Cap PO 800 mg TID GRIS Administration Heparin Sodium (Porcine) 5,000 unit 08/10/20 06:00 08/12/20 13:16 Heparin 5,000 Unit/1 Ml Vial SUB-Q 5,000 unit Q8HR GRIS Administration Hydralazine HCl 10 mg 08/10/20 05:32 08/11/20 02:31 Hydralazine 20 Mg/1 Ml Inj IV 10 mg Q4HR PRN Administration Blood Pressure Ceftriaxone Sodium 1 gm in 50 mls @ 100 mls/hr 08/11/20 06:00 08/12/20 06:57 Rocephin/Ns 1 Gm/50 Ml IV 100 mls/hr Q24H GRIS Administration Protocol Insulin Glargine 40 units 08/11/20 22:00 08/11/20 21:54 Insulin Glargine 100 Units/Ml SUB-Q 40 units QHS GRIS Administration Insulin Human Lispro 0 unit 08/10/20 07:30 08/12/20 11:30 Insulin Lispro 100 Unit/Ml SUB-Q 6 unit ACHS GRIS Administration Protocol Insulin Human Lispro 15 unit 08/12/20 11:30 08/12/20 11:30 Insulin Lispro 100 Unit/Ml SUB-Q 15 unit AC GRIS Administration Ketorolac Tromethamine 15 mg 08/12/20 10:31 Ketorolac 30 Mg/1 Ml Inj IV 08/17/20 10:30 Q6H PRN Pain, Moderate (4-6) Magnesium Hydroxide 30 ml 08/10/20 05:27 Magnesium Hydroxide (Mom) Oral Liqd Udc PO Q4H PRN Constipation Metoclopramide HCl 10 mg 08/10/20 08:00 08/12/20 12:00 Metoclopramide 10 Mg/2 Ml Inj IV 10 mg Q6HR GRIS Administration Mirtazapine 45 mg 08/10/20 22:00 08/11/20 21:54 Mirtazapine 15 Mg Tab PO 45 mg QHS GRIS Administration Miscellaneous Medication 1 each 08/10/20 22:00 08/11/20 21:56 Abacavir/Dolutegravir/Lamivudi [Triumeq 600-50-300 Mg Tablet] PO 1 each QHS GRIS Administration Ondansetron HCl 4 mg 08/10/20 05:27 08/10/20 22:43 Ondansetron 4 Mg/2 Ml Inj IV 4 mg Q8H PRN Administration Nausea And Vomiting Oxycodone/Acetaminophen 2 tab 08/12/20 10:31 08/12/20 13:16 Oxycodone /Acetaminophen 5-325mg Tab PO 2 tab Q6H PRN Administration Pain , Severe (7-10) Sodium Chloride 10 ml 08/10/20 10:00 08/12/20 09:23 Sodium Chloride 0.9% 10 Ml Flush Syringe IV 10 ml BID GRIS Administration Sodium Chloride 10 ml 08/10/20 05:27 Sodium Chloride 0.9% 10 Ml Flush Syringe IV PRN PRN LINE FLUSH Trazodone HCl 150 mg 08/10/20 20:00 Trazodone 100 Mg Tab PO QHS PRN Insomnia
[2020-08-12] MEDS: CYCLOBENZAPRINE 10 MG TAB PO SCH (21:52)
[2020-08-12] MEDS: INSULIN GLARGINE 100 UNITS/ML SUB-Q SCH (21:52)
[2020-08-12] MEDS: MIRTAZAPINE 15 MG TAB PO SCH (21:53)
[2020-08-12] MEDS: ABACAVIR PO SCH (22:12)
[2020-08-12] MEDS: [UNRECOGNIZED DRUG - OTHER] PO SCH (22:12)
[2020-08-12] MEDS: DOLUTEGRAVIR PO SCH (22:12)
[2020-08-12] MEDS: LAMIVUDI PO SCH (22:12)
[2020-08-13] MEDS: METOCLOPRAMIDE 10 MG/2 ML INJ IV SCH ×3 (00:30→11:33)
[2020-08-13] MEDS: cefTRIAXone/NS 1 GM/50 ML 1 GM/50 ML BAG IV SCH (05:07)
[2020-08-13] MEDS: HEPARIN 5,000 UNIT/1 ML VIAL SUB-Q SCH (05:08)
[2020-08-13] MEDS: diphenhydrAMINE 50 MG/ML VIAL IV PRN ×2 (05:45→11:34)
[2020-08-13] MEDS: oxyCODONE /ACETAMINOPHEN 5-325MG TAB PO PRN ×2 (05:45→11:32)
[2020-08-13] MEDS: INSULIN LISPRO 100 UNIT/ML SUB-Q SCH ×4 (08:39→12:48)
[2020-08-13] MEDS: GABAPENTIN 400 MG CAP PO SCH (08:40)
[2020-08-13] MEDS: ARIPiprazole 15 MG TAB PO SCH (10:02)
[2020-08-13 11:20] VITALS: BP 147/80
--- NOTE | 2020-08-13 12:13 | Discharge Summary ---
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 Abdominal pain is said to be sharp and in the lower abdomen radiating towards the back. She has also had some bilateral flank pain. Symptoms has been ongoing for the past 3 days. Pain is said to be worse upon movement and feels better upon resting. She denies any fever or chills, no nausea vomiting, no diarrhea, no hematuria or dysuria. Patient denies any chest pain or shortness of breath. No headache or dizziness She denies any sick contacts and no recent travel. Denies any contact with anyone with COVID-19. Work-up in the emergency room today, urinalysis reveals a UTI. Chemistry reveals hyperglycemia with blood sugar in the 500s CT of the abdomen and pelvis is consistent with cystitis /ascending urinary tract infection. There is also an unchanged nonobstructive left intrarenal stone. Patient has been started on IV fluid, empiric IV antibiotics for UTI/pyelonephritis. (1) Pyelonephritis Current Visit: Yes Status: Acute Plan to address problem: Patient commenced on empiric IV antibiotics and IV fluid. We will await urine culture results. (2) Abdominal pain Current Visit: Yes Status: Acute Qualifiers: Abdominal location: lower abdomen, unspecified Qualified Code(s): R10.30 - Lower abdominal pain, unspecified Plan to address problem: Probably secondary to the cystitis. We will continue on IV fluid and analgesic medication. (3) Renal failure Current Visit: Yes Status: Acute Qualifiers: Renal failure chronicity: acute Acute renal failure type: unspecified Qualified Code(s): N17.9 - Acute kidney failure, unspecified Plan to address problem: Consult placed to nephrology for evaluation and recommendation. Meanwhile we will continue on IV fluid. Will monitor BUN and creatinine. CT of the abdomen and pelvis reveals a nonobstructive left intrarenal stone. (4) Diabetes mellitus type 2 in obese Current Visit: No Status: Acute Plan to address problem: Patient placed on IV fluid and subcutaneous insulin. We will monitor Accu-Cheks closely. (5) Hypertension Current Visit: No Status: Chronic Qualifiers: Hypertension type: essential hypertension Qualified Code(s): I10 - Essential (primary) hypertension Plan to address problem: We will resume routine home medications and monitor vital signs closely. Patient also placed on IV hydralazine as needed for optimal blood pressure control. (6) DVT prophylaxis Current Visit: No Status: Acute Plan to address problem: Patient placed on subcutaneous heparin. (7) Full code status Current Visit: No Status: Acute Plan to address problem: Patient is full code. 08/11/2020 -Patient is on IV ceftriaxone for ascending UTI, urine culture ordered. Patient had no fever or chills. -Patient has gastroparesis and she is on Reglan scheduled. -Patient was on insulin pump. Currently patient is on sliding scale insulin, AC insulin and Lantus. Blood sugar is high and will adjust her insulin regimen. -SYLWIA resolved 08/12/2020 -Patient is on ceftriaxone for ascending UTI. Urine culture is pending. -Patient's abdominal pain and vomiting is getting better -Patient's A1c was 11.1 and is on insulin pump, here I put her on Lantus 40 units nightly, sliding scale insulin and AC Humalog. But despite that blood sugar is very high. I will increase Lantus and AC Humalog. Patient was drinking regular gingerale and I have counseled the patient about not to drink any sugary snacks and patient agreed. We will monitor her blood sugar today and patient can be discharged tomorrow. 08/13: Patient ambulating in no acute distress resting comfortably. Although she still has some pain on the side she says that this has improved I discussed with her the importance of following up with the urologist she verbalized understanding. Disposition: DC- TO HOME OR SELFCARE Final Discharge Diagnosis (Prints w/discharge instructions): Pyelonephritis Time spent for discharge: 35 mins Core Measure Documentation - Palliative Care Palliative Care/ Comfort Measures: Not Applicable - Core Measures Any of the following diagnoses?: none Exam - Physical Exam Narrative exam: Not in cardiopulmonary distress. Resting comfortably sitting next window. The patient is obese. Vital signs as documented. Head exam is unremarkable. No scleral icterus . Neck is without jugular venous distension, thyromegaly, or carotid bruits. Lungs are clear to auscultation. Cardiac exam reveals regular rate and Rhythm. Abdominal exam reveals normal bowel sounds, nontender, no organomegaly. Extremities are nonedematous and both femoral and pedal pulses are normal. 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 No focal weakness. - Constitutional Vitals: Temp Pulse Resp BP Pulse Ox 98.6 F 78 15 147/80 98 08/13/20 11:13 08/13/20 11:13 08/13/20 11:13 08/13/20 11:13 08/13/20 11:13 Plan Activity: advance as tolerated, fall precautions Diet: low fat Special Instructions: record daily weights, record daily BP diary Follow up with: PRIMARY CAREMD [Primary Care Provider] - 3-5 Days ELLIS HADDAD MD [Staff Physician] - 7 Days Prescriptions: Cyclobenzaprine [Flexeril 10 MG TAB] 5 mg PO QHS #30 tablet Insulin Glargine [Lantus VIAL] 40 units SUB-Q QHS #30 units levoFLOXacin [Levaquin] 750 mg PO QDAY #14 tablet oxyCODONE /ACETAMINOPHEN [Percocet 5/325 mg] 1 tab PO Q6HR PRN #12 tablet PRN Reason: Pain
--- NOTE | 2020-08-13 16:17 | Progress Note ---
Assessment and Plan This is a 40 year old woman who presents with abdominal pain, found to have cystitis, hyperglycemia # SYLWIA: likely pre-renal injury due to hyperglycemia and UTI. Creatinine improved with IVF from 1.7 on admission->1.2->1.1 - agree with holding KAYLEE/ARB for now, can decide on outpatient basis for intermediate frame tender juventino-protection - daily labs - renally dose meds - avoid nephrotoxins - renal diet # Hyperglycemia: A1c very elevated; DM management per primary # Hypernatremia: likely pseudohyponatremia in setting of hyperglycemia, improved # Pyelonephritis/UTI: antibiotics per primary, urine culture + # HTN: BP high initially, improved with IV hydralazine. Recommend starting amlodipine 5 mg by mouth daily. Will sign off. Please call with questions. Subjective Date of service: 08/13/20 Principal diagnosis: Pyelonephritis Interval history: Denies nausea and vomiting Denies pain Tolerating diet Objective - Exam Narrative Exam: General: No acute distress HEENT: Oral mucosa moist Neck: Supple, no JVD Chest: Clear to auscultation bilaterally Heart: RRR, S1 and S2, no pericardial rub Abdomen: Soft, nontender, no renal bruit Extremity: No peripheral cyanosis, edema Neurological: Alert, awake, no asterixis Dermatology: No skin rash Psych: No agitation Musculoskeletal: No joint effusion - Vital Signs Vital signs: Vital Signs - 12hr 08/13/20 08/13/20 08/13/20 04:24 10:00 11:13 Temperature 98.4 F 98.6 F Pulse Rate 80 78 Respiratory 16 20 15 Rate Blood Pressure 142/69 147/80 O2 Sat by Pulse 98 98 98 Oximetry - Lab 08/11/20 06:15 08/12/20 06:19 Most recent lab results Calcium 8.4 mg/dL (8.4-10.2) 08/12/20 06:19 Medications & Allergies - Medications Allergies/Adverse Reactions: Allergies iodine Allergy (Verified 08/26/19 12:57) Swelling sulfamethoxazole [From Bactrim] Allergy (Verified 08/26/19 12:57) Rash trimethoprim [From Bactrim] Allergy (Verified 08/26/19 12:57) Rash metformin Adverse Reaction (Verified 08/26/19 12:57) Nausea seafood Allergy (Uncoded 02/16/18 13:38) Rash Home Medications: Home Medications Medication Instructions Recorded Confirmed Last Taken Type Abacavir/Dolutegravir/Lamivudi 1 each PO DAILY 07/10/15 08/11/20 09/08/17 History [Triumeq 600-50-300 mg Tablet] buPROPion XL [Wellbutrin XL] 150 mg PO QDAY 06/02/18 08/11/20 Unknown History Cyclobenzaprine HCl [Flexeril 5 MG 5 mg PO QHS #10 tab 12/08/18 08/11/20 Unknown Rx TAB] ALBUTEROL NEB's [Proventil 0.083% 2.5 mg IH TID PRN 04/15/19 08/11/20 Unknown History NEBS] Lispro Insulin [HumaLOG] 0 unit SQ DAILY 04/15/19 08/11/20 12/29/19 History Omeprazole 40 mg PO DAILY 04/15/19 08/11/20 Unknown History Albuterol Mdi (or & Nicu Only) 2 puff IH QID PRN #8.5 gram 04/25/19 08/11/20 Unknown Rx [ProAir HFA Inhaler] Benzonatate [Tessalon Perles] 100 mg PO Q8HR #30 capsule 04/25/19 08/11/20 Unknown Rx ARIPiprazole [Abilify TAB] 15 mg PO QDAY #30 12/31/19 08/11/20 Unknown Rx Acetaminophen/Codeine [Tylenol 1 tab PO Q6H PRN #20 tab 12/31/19 08/11/20 Unknown Rx /Codeine # 3 tab] AtorvaSTATin [Lipitor] 40 mg PO HS tablet 12/31/19 08/11/20 Unknown Rx Dulaglutide [Trulicity] 0.75 mg SQ QWEEK #1 12/31/19 08/11/20 Unknown Rx Gabapentin 800 mg PO TID capsule 12/31/19 08/11/20 Unknown Rx Insulin Lispro [Humalog] 0 unit SUB-Q ACHS vial 12/31/19 08/11/20 Unknown Rx Mirtazapine [Remeron 15mg TAB] 45 mg PO QHS #30 tablet 12/31/19 08/11/20 Unknown Rx Trazodone HCl 150 mg PO QHS PRN #30 12/31/19 08/11/20 Unknown Rx Cyclobenzaprine [Flexeril 10 MG 5 mg PO QHS #30 tablet 08/13/20 Unknown Rx TAB] Insulin Glargine [Lantus VIAL] 40 units SUB-Q QHS #30 units 08/13/20 Unknown Rx levoFLOXacin [Levaquin] 750 mg PO QDAY #14 tablet 08/13/20 Unknown Rx oxyCODONE /ACETAMINOPHEN [Percocet 1 tab PO Q6HR PRN #12 tablet 08/13/20 Unknown Rx 5/325 mg]
== END 2020-08-13 14:00 | disposition home or self-care (01) | DRG 689 ==
LOC: ED 22:19 → 3A 08-10 05:16 → OBSVTOIN 08-10 14:24 → 3A 08-10 21:14
PROVIDERS: ADMIT Internal Medicine Geriatric Medicine; ATTEND Internal Medicine
DX: N12 Tubulo-interstitial nephritis, not specified as acute or chronic (principal); E11.00 Type 2 diabetes mellitus with hyperosmolarity without nonketotic hyperglycemic-hyperosmolar coma (NKHHC); Z68.41 Body mass index [BMI] 40.0-44.9, adult; E87.0 Hyperosmolality and hypernatremia; I10 Essential (primary) hypertension; F41.9 Anxiety disorder, unspecified; F32.9 Major depressive disorder, single episode, unspecified; J45.909 Unspecified asthma, uncomplicated; Z21 Asymptomatic human immunodeficiency virus [HIV] infection status; Z79.4 Long term (current) use of insulin; Z79.899 Other long term (current) drug therapy; F17.200 Nicotine dependence, unspecified, uncomplicated; Z88.2 Allergy status to sulfonamides; Z88.8 Allergy status to other drugs, medicaments and biological substances; Z91.041 Radiographic dye allergy status; Z91.013 Allergy to seafood; B96.20 Unspecified Escherichia coli [E. coli] as the cause of diseases classified elsewhere; Z90.49 Acquired absence of other specified parts of digestive tract; E66.9 Obesity, unspecified; N17.0 Acute kidney failure with tubular necrosis
CPT/HCPCS: 36415; 74176; 80048; 80053; 81001; 82962; 83036; 85025; 85610; 87076; 87086; 87186; 96365; 96375; G0378; A9270-GY; J0360; J0696; J1170; J1200; J1644; J1815; J2405; J2765; J3246; J7030

== ENCOUNTER 2020-09-01 21:59 | Emergency (ER) | payer MEDICARE ==
[2020-09-02 00:14] LABS: Basophils % (Auto) 0.2 % (0.0-1.8); Eosinophils # (Auto) 0.1 K/mm3 (0.0-0.4); Eosinophils % (Auto) 1.8 % (0.0-4.3); Hematocrit 37.6 % (30.3-42.9); Hemoglobin 12.7 gm/dl (10.1-14.3); Lymphocytes # (Auto) 3.4 K/mm3 (1.2-5.4); Lymphocytes % (Auto) 48.3 % (13.4-35.0); Mean Corpuscular HGB Conc 34 % (30-34); Mean Corpuscular Volume 97 fl (79-97); Monocytes # (Auto) 0.4 K/mm3 (0.0-0.8); Monocytes % (Auto) 5.5 % (0.0-7.3); Platelet Count 175 K/mm3 (140-440); Red Blood Count 3.86 M/mm3 (3.65-5.03); Red Cell Distribution Width 15.2 % (13.2-15.2)
--- NOTE | 2020-09-02 00:14 | Emergency Department Report ---
ED General Adult HPI - General Chief complaint: Abdominal Pain Stated complaint: LOWER ABDOMINAL PAIN PUI?: No Time Seen by Provider: 09/02/20 00:06 Source: patient, RN notes reviewed, old records reviewed Mode of arrival: Ambulatory Limitations: No Limitations - History of Present Illness Initial comments: The patient was evaluated in the emergency department for symptoms described in the history of present illness. He/she was evaluated in the context of the global COVID-19 pandemic, which necessitated consideration that the patient might be at risk for infection with the virus that causes COVID-19. Institutional protocols and algorithms that pertain to the evaluation of patients at risk for COVID-19 are in a state of rapid change based on information released by regulatory bodies including the CDC and federal and s [place] organizations. These policies and algorithms were followed during the patient's care in the emergency department. Please note that these policies, procedures and recommendations changed on a rapid basis. During the history and physical examination, I am chaperoned by nurse Humera Rushing This is a 40-year-old female. I have evaluated her in the past. Past medical history includes pyelonephritis, abdominal pain, renal insufficiency, renal stone, type 2 diabetes, hypertension, HIV, on antiviral therapy. Patient recently admitted to this hospital for pyelonephritis, had culture results which demonstrated E. coli, which were pansensitive, and she was discharged with Levaquin for 2 weeks. She reports that she completed her Levaquin course. Today, she presents to the ER with a complaint of paralumbar lower back pain, that radiates down to her left lower quadrant to the front, with dysuria. No headache, neck pain, chest pain, shortness of breath, vomiting. No new vaginal discharge. She believes that she has another urinary tract infection. She does report a very distant history of gonorrhea/chlamydia, "years ago." She reports that she is sexually active with one partner -: Gradual, days(s) Location: back, abdomen Radiation: abdomen Quality: aching Consistency: constant Improves with: rest Worsens with: movement - Related Data Home Medications Medication Instructions Recorded Confirmed Last Taken Abacavir/Dolutegravir/Lamivudi 1 each PO DAILY 07/10/15 08/11/20 09/08/17 [Triumeq 600-50-300 mg Tablet] buPROPion XL [Wellbutrin XL] 150 mg PO QDAY 06/02/18 08/11/20 Unknown ALBUTEROL NEB's [Proventil 0.083% 2.5 mg IH TID PRN 04/15/19 08/11/20 Unknown NEBS] Lispro Insulin [HumaLOG] 0 unit SQ DAILY 04/15/19 08/11/20 12/29/19 Omeprazole 40 mg PO DAILY 04/15/19 08/11/20 Unknown Previous Rx's Medication Instructions Recorded Last Taken Type Albuterol Mdi (or & Nicu Only) 2 puff IH QID PRN #8.5 gram 04/25/19 Unknown Rx [ProAir HFA Inhaler] ARIPiprazole [Abilify TAB] 15 mg PO QDAY #30 12/31/19 Unknown Rx AtorvaSTATin [Lipitor] 40 mg PO HS tablet 12/31/19 Unknown Rx Dulaglutide [Trulicity] 0.75 mg SQ QWEEK #1 12/31/19 Unknown Rx Gabapentin 800 mg PO TID capsule 12/31/19 Unknown Rx Insulin Lispro [Humalog] 0 unit SUB-Q ACHS vial 12/31/19 Unknown Rx Mirtazapine [Remeron 15mg TAB] 45 mg PO QHS #30 tablet 12/31/19 Unknown Rx Trazodone HCl 150 mg PO QHS PRN #30 12/31/19 Unknown Rx Insulin Glargine [Lantus VIAL] 40 units SUB-Q QHS #30 units 08/13/20 Unknown Rx Fluconazole [Diflucan TAB] 100 mg PO QDAY #3 tablet 08/14/20 Unknown Rx levoFLOXacin [Levaquin TAB] 750 mg PO QDAY #9 tablet 09/02/20 Unknown Rx oxyCODONE /ACETAMINOPHEN [Percocet 1 tab PO Q6HR PRN #10 tablet 09/02/20 Unknown Rx 5/325 mg] Allergies Allergy/AdvReac Type Severity Reaction Status Date / Time iodine Allergy Swelling Verified 08/26/19 12:57 sulfamethoxazole Allergy Rash Verified 08/26/19 12:57 [From Bactrim] trimethoprim [From Bactrim] Allergy Rash Verified 08/26/19 12:57 metformin AdvReac Nausea Verified 08/26/19 12:57 seafood Allergy Rash Uncoded 02/16/18 13:38 ED Review of Systems ROS: Stated complaint: LOWER ABDOMINAL PAIN Other details as noted in HPI Constitutional: other (Denies loss of taste and smell). denies: fever, malaise Eyes: denies: eye discharge ENT: denies: epistaxis Respiratory: denies: cough Cardiovascular: denies: chest pain Gastrointestinal: abdominal pain. denies: nausea, vomiting, diarrhea, melena, hematochezia Genitourinary: urgency, dysuria, frequency Musculoskeletal: back pain Neurological: denies: weakness Hematological/Lymphatic: denies: easy bleeding ED Past Medical Hx - Past Medical History Previous Medical History?: Yes Hx Hypertension: Yes Hx Heart Attack/AMI: No Hx Diabetes: Yes Hx Liver Disease: No Hx Renal Disease: No Hx Seizures: No Hx Psychiatric Treatment: Yes (anxiety depression) Hx Asthma: Yes (lasty inhaler use 03/2020) Hx COPD: Yes Hx HIV: Yes Additional medical history: HIGH CHOLESTEROL - Surgical History Past Surgical History?: Yes Hx Pacemaker: No Hx Internal Defibrillator: No Hx Cholecystectomy: Yes Additional Surgical History: d&c x1, insulin pump placement, TOTAL HYSTERECTOMY, boil removal to R inner thigh - Social History Smoking Status: Never Smoker Substance Use Type: None - Medications Home Medications: Home Medications Medication Instructions Recorded Confirmed Last Taken Type Abacavir/Dolutegravir/Lamivudi 1 each PO DAILY 07/10/15 08/11/20 09/08/17 History [Triumeq 600-50-300 mg Tablet] buPROPion XL [Wellbutrin XL] 150 mg PO QDAY 06/02/18 08/11/20 Unknown History ALBUTEROL NEB's [Proventil 0.083% 2.5 mg IH TID PRN 04/15/19 08/11/20 Unknown Hi story NEBS] Lispro Insulin [HumaLOG] 0 unit SQ DAILY 04/15/19 08/11/20 12/29/19 History Omeprazole 40 mg PO DAILY 04/15/19 08/11/20 Unknown History Albuterol Mdi (or & Nicu Only) 2 puff IH QID PRN #8.5 gram 04/25/19 08/11/20 Unknown Rx [ProAir HFA Inhaler] ARIPiprazole [Abilify TAB] 15 mg PO QDAY #30 12/31/19 08/11/20 Unknown Rx AtorvaSTATin [Lipitor] 40 mg PO HS tablet 12/31/19 08/11/20 Unknown Rx Dulaglutide [Trulicity] 0.75 mg SQ QWEEK #1 12/31/19 08/11/20 Unknown Rx Gabapentin 800 mg PO TID capsule 12/31/19 08/11/20 Unknown Rx Insulin Lispro [Humalog] 0 unit SUB-Q ACHS vial 12/31/19 08/11/20 Unknown Rx Mirtazapine [Remeron 15mg TAB] 45 mg PO QHS #30 tablet 12/31/19 08/11/20 Unknown Rx Trazodone HCl 150 mg PO QHS PRN #30 12/31/19 08/11/20 Unknown Rx Insulin Glargine [Lantus VIAL] 40 units SUB-Q QHS #30 units 08/13/20 Unknown Rx Fluconazole [Diflucan TAB] 100 mg PO QDAY #3 tablet 08/14/20 Unknown Rx levoFLOXacin [Levaquin TAB] 750 mg PO QDAY #9 tablet 09/02/20 Unknown Rx oxyCODONE /ACETAMINOPHEN [Percocet 1 tab PO Q6HR PRN #10 tablet 09/02/20 Unknown Rx 5/325 mg] ED Physical Exam - General Limitations: No Limitations General appearance: alert, in no apparent distress, obese - Head Head exam: Present: atraumatic, normocephalic - Eye Eye exam: Present: normal appearance, EOMI. Absent: nystagmus - ENT ENT exam: Present: normal exam, normal orophraynx, mucous membranes moist, normal external ear exam - Neck Neck exam: Present: normal inspection, full ROM. Absent: tenderness, meningismus - Respiratory Respiratory exam: Present: normal lung sounds bilaterally. Absent: respiratory distress, wheezes, rales, rhonchi, stridor, decreased breath sounds - Cardiovascular Cardiovascular Exam: Present: regular rate, normal rhythm, normal heart sounds. Absent: bradycardia, tachycardia, irregular rhythm, systolic murmur, diastolic murmur, rubs, gallop - GI/Abdominal GI/Abdominal exam: Present: soft, tenderness, other (There is left lower quadrant tenderness.). Absent: distended, guarding, rebound, rigid, pulsatile mass - Rectal Rectal exam: Present: normal inspection - External exam: Present: normal external exam, other (Chaperoned by configurator Anna Clancy. Evidence of chronic hidradenitis noted. No redness, pus or streaking. No crepitus. No perineum tenderness.). Absent: erythema, swelling, lesions, lacerations, ecchymosis, bleeding - Extremities Exam Extremities exam: Present: normal inspection, full ROM, other (2+ pulses noted in the bilateral upper and lower extremities. There is no palpable cord. negative Homans sign. Muscular compartments are soft. The pelvis is stable.). Absent: pedal edema, calf tenderness - Back Exam Back exam: Present: normal inspection, CVA tenderness (L), paraspinal tenderness. Absent: tenderness, CVA tenderness (R), vertebral tenderness - Neurological Exam Neurological exam: Present: alert, oriented X3, normal gait, other (No facial droop. Tongue midline. Extraocular movements intact bilaterally. Facial sensation intact to light touch in V1, V2, V3 distribution bilaterally. 5 and a 5 strength in 4 extremities. Sensation intact to light touch in 4 extremities.). Absent: motor sensory deficit - Psychiatric Psychiatric exam: Present: flat affect - Skin Skin exam: Present: warm, dry, intact, normal color. Absent: rash ED Course Vital Signs 09/01/20 23:25 Temperature 98.9 F Pulse Rate 96 H Respiratory 20 Rate Blood Pressure 151/69 O2 Sat by Pulse 100 Oximetry - Reevaluation(s) Reevaluation #1: 09/02/20 01:39 Differential diagnosis, including but not limited to: Renal colic, urinary tract infection, pelvic inflammatory disease, hyperglycemia, noncompliance, dehydration Assessment and plan: 40-year-old female, who is afebrile with reassuring vital signs, without leukocytosis, with urinary symptoms, left back pain, left flank pain, and a history of pyelonephritis with culture proven bacteria/organisms. She has completed a course of Levaquin. We will treat her symptoms, start IV fluids, start insulin, renal insufficiency likely secondary to dehydration. She will also be given insulin. We will also treat her pain. We will , obtain noncontrast CT scan of the abdomen pelvis, and reassess. Patient status post hysterectomy, therefore, pelvic inflammatory disease is very unlikely. Have discussed this plan of care with the patient, who verbalized understanding, and who is amenable to this plan of care. 09/02/20 03:11 Laboratory studies have demonstrated hyperglycemia, mild dehydration. Urinalysis reviewed and appreciated. Noncontrast CT scan of the abdomen pelvis reviewed and appreciated. Patient be treated empirically for urinary tract infection. She is suitable for trial of discharge with outpatient management at this time. 09/02/20 04:55 Gynecologic exam is benign. No evidence of cellulitis, abscess, or Fifi's gangrene or necrotizing fasciitis. Patient ambulating with a steady gait. ED Medical Decision Making - Lab Data Result diagrams: 09/01/20 23:43 09/01/20 23:43 Vital Signs 09/01/20 23:25 Temperature 98.9 F Pulse Rate 96 H Respiratory 20 Rate Blood Pressure 151/69 O2 Sat by Pulse 100 Oximetry Lab Results 09/01/20 09/01/20 09/01/20 Range/Units 23:43 23:43 Unknown WBC 7.1 (4.5-11.0) K/mm3 RBC 3.86 (3.65-5.03) M/mm3 Hgb 12.7 (10.1-14.3) gm/dl Hct 37.6 (30.3-42.9) % MCV 97 (79-97) fl MCH 33 H (28-32) pg MCHC 34 (30-34) % RDW 15.2 (13.2-15.2) % Plt Count 175 (140-440) K/mm3 Lymph % (Auto) 48.3 H (13.4-35.0) % [place] % (Auto) 5.5 (0.0-7.3) % Eos % (Auto) 1.8 (0.0-4.3) % Baso % (Auto) 0.2 (0.0-1.8) % Lymph # (Auto) 3.4 (1.2-5.4) K/mm3 [place] # (Auto) 0.4 (0.0-0.8) K/mm3 Eos # (Auto) 0.1 (0.0-0.4) K/mm3 Baso # (Auto) 0.0 (0.0-0.1) K/mm3 Seg Neutrophils % 44.2 (40.0-70.0) % Seg Neutrophils # 3.2 (1.8-7.7) K/mm3 Sodium 137 (137-145) mmol/L Potassium 4.5 (3.6-5.0) mmol/L Chloride 99.0 (98-107) mmol/L Carbon Dioxide 25 (22-30) mmol/L Anion Gap 18 mmol/L BUN 36 H (7-17) mg/dL Creatinine 1.7 H (0.6-1.2) mg/dL Estimated GFR 33 ml/min BUN/Creatinine Ratio 21 % Glucose 365 H (65-100) mg/dL Calcium 9.8 (8.4-10.2) mg/dL Total Bilirubin 0.20 (0.1-1.2) mg/dL AST 20 (5-40) units/L ALT 28 (7-56) units/L Alkaline Phosphatase 113 (35-129) units/L Total Protein 7.7 (6.3-8.2) g/dL Albumin 4.1 (3.9-5) g/dL Albumin/Globulin Ratio 1.1 % Urine Color Yellow (Yellow) Urine Turbidity Slightly-cloudy (Clear) Urine pH 5.0 (5.0-7.0) Ur Specific [place] 1.021 (1.003-1.030) Urine Protein >500 (Negative) mg/dL Urine Glucose (UA) >=500 (Negative) mg/dL Urine Ketones Neg (Negative) mg/dL Urine Blood Sm (Negative) Urine Nitrite Neg (Negative) Ur Reducing Substances Not Reportable Urine Bilirubin Neg (Negative) Urine Ictotest Not Reportable Urine Urobilinogen < 2.0 (<2.0) mg/dL Ur Leukocyte Esterase Neg (Negative) Urine WBC (Auto) 6.0 (0.0-6.0) /HPF Urine RBC (Auto) 10.0 (0.0-6.0) /HPF U Epithel Cells (Auto) 3.0 (0-13.0) /HPF Urine Bacteria (Auto) 1+ (Negative) /HPF Hyaline Casts 8 /LPF Urine Mucus Few /HPF Urine HCG, Qual Negative (Negative) - Radiology Data Radiology results: report reviewed, image reviewed [facility] [address] [place] [address] Cat Scan Report Signed Patient: POLINA SIMS MR#: [id number] : 1980 Acct:[id number] Age/Sex: 40 / F ADM Date: 09/01/20 Loc: ED Attending Dr: Ordering Physician: JENARO CHAUDHARI MD Date of Service: 09/02/20 Procedure(s): CT abdomen pelvis wo con Accession Number(s): [id number] cc: JENARO CHAUDHARI MD CT ABDOMEN PELVIS WITHOUT CONTRAST INDICATION / CLINICAL INFORMATION: lower abd pain dysurias. TECHNIQUE: Axial CT images were obtained through the abdomen and pelvis without IV contrast. All CT scans at this location are performed using CT dose reduction for ALARA by means of automated exposure control. COMPARISON: 08/10/2020 FINDINGS: LOWER CHEST: No significant abnormality. LIVER: No significant abnormality. GALL BLADDER: No significant abnormality. BILE DUCTS: No significant abnormality. PANCREAS: No significant abnormality. SPLEEN: No significant abnormality. ADRENALS: No significant abnormality. RIGHT KIDNEY and URETER: Small renal cyst. Perinephric stranding again noted. LEFT KIDNEY and URETER: Left nephrolithiasis. Perinephric stranding again noted STOMACH and SMALL BOWEL: No significant abnormality. COLON: No significant abnormality. APPENDIX: No significant abnormality. PERITONEUM: Ventral wall thinning No free fluid. No free air. No fluid collection. LYMPH NODES: No significant adenopathy. AORTA and ARTERIES: No significant abnormality. IVC and VEINS: No significant abnormality. URINARY NADIYA DDER: Bladder wall thickening REPRODUCTIVE ORGANS: Prior hysterectomy ADDITIONAL FINDINGS: None. SKELETAL SYSTEM: No significant abnormality. IMPRESSION: 1. Persistent bladder wall thickening 2. Left nephrolithiasis Signer Name: Mohinder Torres MD Signed: 09/02/2020 2:25 AM Workstation Name: [id number] Transcribed By: WG Dictated By: Mohinder Torres MD Electronically Authenticated By: Mohinder Torres MD Signed Date/Time: 09/02/20224 DD/ 9 Critical care attestation.: If time is entered above; I have spent that time in minutes in the direct care of this critically ill patient, excluding procedure time. ED Disposition Clinical Impression: Lower abdominal pain, Hyperglycemia, Renal insufficiency, Diabetes mellitus type 2 in obese, Flank pain, Dysuria Disposition: DC-01 TO HOME OR SELFCARE Is pt being admited?: No Does the pt Need Aspirin: No Condition: Good Instructions: Diabetes Mellitus Type 2 in Adults (ED), Abdominal Pain (ED), Hyperglycemia, Abdominal Pain, Adult Additional Instructions: Please continue current outpatient diabetic medications. Please remain compliant with a diabetic diet. Drink at least 5 to 6 cups of water per day. Cultures were sent today, and results will be available in the next 3 to 5 days. Please have your primary care doctor, or infectious disease doctor contact the medical records department to obtain copies of laboratory studies, and culture results. Take the antibiotics as directed. Do not consume alcohol. Avoid consumption of Motrin, ibuprofen, Naprosyn, Aleve. Please follow-up with your primary care doctor within the next 3 to 5 days for repeat checkup and evaluation. Please return to the emergency room right away with new pain, worsened pain, migration of pain, projectile vomiting, change in mental status, confusion, inability to tolerate liquid feeds, new, worsened or different symptoms not present on the initial emergency room evaluation. In addition to the prescribed pain medication, patient may also take Tylenol/acetaminophen [id number]. She may take 650 mg by mouth, every 4-6 hours, as needed for pain. Please keep in mind that maximum daily dose of Tylenol is 3 g per every 24 hours, and that the prescribed oxycodone acetaminophen prescription does contain 325 mg of acetaminophen/Tylenol per tablet. Referrals: TERESA VALDEZ MD [Primary Care Provider] - 3-5 Days
[2020-09-02 00:28] LABS: Albumin 4.1 g/dL (3.9-5); Calcium 9.8 mg/dL (8.4-10.2)
[2020-09-02] MEDS ORDERED: ACETAMINOPHEN 325 MG TAB PO STA (00:39)
[2020-09-02] MEDS ORDERED: HYDROmorphone 1 MG/1 ML INJ IM ONE (00:39)
[2020-09-02 01:25] LABS: HCG Qualitative,Urine Negative (Negative)
[2020-09-02 01:33] LABS: Bacteria,Urine 1+ /HPF (Negative); Bilirubin,Urine NEG (Negative); Blood,Urine SM (Negative); Color,Urine Yellow (Yellow); Hyaline Casts,Urine 8 /LPF; Mucus,Urine FEW /HPF; Urobilinogen,Urine < 2.0 mg/dL (<2.0)
[2020-09-02 01:34] LABS: Protein,Urine >500 mg/dL (Negative)
[2020-09-02] MEDS ORDERED: INSULIN REGULAR, HUMAN 100 UNITS/1 ML IV ONE (01:34)
[2020-09-02] MEDS ORDERED: LACTATED RINGERS 2,000 ML IV ONE (01:34)
[2020-09-02] MEDS ORDERED: HYDROmorphone 1 MG/1 ML INJ IV ONE ×2 (02:11→04:55)
--- NOTE | 2020-09-02 02:29 | Cat Scan Report ---
CT ABDOMEN PELVIS WITHOUT CONTRAST INDICATION / CLINICAL INFORMATION: lower abd pain dysurias. TECHNIQUE: Axial CT images were obtained through the abdomen and pelvis without IV contrast. All CT scans at [facility] location are performed using CT dose reduction for ALARA by means of automated exposure control. COMPARISON: 08/10/2020 FINDINGS: LOWER CHEST: No significant abnormality. LIVER: No significant abnormality. GALLBLADDER: No significant abnormality. BILE DUCTS: No significant abnormality. PANCREAS: No significant abnormality. SPLEEN: No significant abnormality. ADRENALS: No significant abnormality. RIGHT KIDNEY and URETER: Small renal cyst. Perinephric stranding again noted. LEFT KIDNEY and URETER: Left nephrolithiasis. Perinephric stranding again noted STOMACH and SMALL BOWEL: No significant abnormality. COLON: No significant abnormality. APPENDIX: No significant abnormality. PERITONEUM: Ventral wall thinning No free fluid. No free air. No fluid collection. LYMPH NODES: No significant adenopathy. AORTA and ARTERIES: No significant abnormality. IVC and VEINS: No significant abnormality. URINARY BLADDER: Bladder wall thickening REPRODUCTIVE ORGANS: Prior hysterectomy ADDITIONAL FINDINGS: None. SKELETAL SYSTEM: No significant abnormality. IMPRESSION: 1. Persistent bladder wall thickening 2. Left nephrolithiasis Signer Name: Mohinder Torres MD Signed: 09/02/2020 2:25 AM Workstation Name: [id number]
[2020-09-02] MEDS ORDERED: oxyCODONE /ACETAMINOPHEN 5-325MG TAB PO ONE (03:37)
[2020-09-02] MEDS ORDERED: levoFLOXacin 750 MG TAB PO ONE (03:37)
[2020-09-02 09:05] VITALS: BP 155/83
== END 2020-09-02 05:32 | disposition home or self-care (01) ==
LOC: ED 21:59
DX: N28.9 Disorder of kidney and ureter, unspecified (principal); E11.65 Type 2 diabetes mellitus with hyperglycemia; R30.0 Dysuria; R10.32 Left lower quadrant pain; I10 Essential (primary) hypertension; Z90.49 Acquired absence of other specified parts of digestive tract; Z98.890 Other specified postprocedural states; Z79.899 Other long term (current) drug therapy; Z88.8 Allergy status to other drugs, medicaments and biological substances
CPT/HCPCS: 36415; 74176; 80053; 81001; 81025; 82550; 82962; 83735; 84702; 85025; 87086; 96361; 96372; 96374; 96375; 96376; 99284; J1170; J7120; J1815

== ENCOUNTER 2020-09-27 15:01 | Emergency (ER) | payer MEDICARE ==
--- NOTE | 2020-09-27 15:14 | Event Note ---
ED Screening Note ED Screening Note: 40 yo diabetic with r flank pain BS this AM 150 no n/v/d sp hysterectomy HR mildly inc no fever or chills no cough/cp or sob taking po This initial assessment/diagnostic orders/clinical plan/treatment(s) is/are subject to change based on patients health status, clinical progression and re- assessment by fellow clinical providers in the ED. Further treatment and workup at subsequent clinical providers discretion. Patient/guardian urged not to elope from the ED as their condition may be serious if not clinically assessed and managed. Initial orders include: ro uti/pylo
[2020-09-27 15:58] LABS: Basophils % (Auto) 0.2 % (0.0-1.8); Eosinophils # (Auto) 0.2 K/mm3 (0.0-0.4); Eosinophils % (Auto) 2.5 % (0.0-4.3); Hematocrit 34.6 % (30.3-42.9); Hemoglobin 11.7 gm/dl (10.1-14.3); Lymphocytes # (Auto) 2.8 K/mm3 (1.2-5.4); Lymphocytes % (Auto) 42.1 % (13.4-35.0); Mean Corpuscular HGB Conc 34 % (30-34); Mean Corpuscular Volume 99 fl (79-97); Monocytes # (Auto) 0.4 K/mm3 (0.0-0.8); Monocytes % (Auto) 5.6 % (0.0-7.3); Platelet Count 157 K/mm3 (140-440); Red Blood Count 3.49 M/mm3 (3.65-5.03); Red Cell Distribution Width 15.3 % (13.2-15.2)
[2020-09-27 16:19] LABS: Alanine Aminotransferase 42 units/L (7-56); Albumin 3.8 g/dL (3.9-5); BUN/Creatinine Ratio 17; Blood Urea Nitrogen 22 mg/dL (7-17); Calcium 9.4 mg/dL (8.4-10.2); Hemolysis Index 6
[2020-09-27 16:22] LABS: Bilirubin,Urine NEG (Negative); Blood,Urine MOD (Negative); Color,Urine Yellow (Yellow); Mucus,Urine FEW /HPF; Urobilinogen,Urine < 2.0 mg/dL (<2.0)
[2020-09-27 16:23] LABS: Protein,Urine >500 mg/dL (Negative)
[2020-09-27 16:24] LABS: HCG Qualitative,Urine Negative (Negative)
[2020-09-27] MEDS ORDERED: SODIUM CHLORIDE 0.9% 1000 ML 1,000 ML IV ONE (16:55)
--- NOTE | 2020-09-27 17:01 | Emergency Department Report ---
HPI - General Chief Complaint: Abdominal Pain Time Seen by Provider: 09/27/20 15:13 - HPI HPI: 40-year-old female with history of HIV on antiretroviral therapy, asthma, CKD, and diabetes mellitus on insulin presents complaining of 1 week of dysuria as well as 3 days of hesitancy and bilateral flank pain. She states that she suffers from recurrent urinary tract infections. She states that the last week she has had burning when she pees and has had progressive flank pain which is worse on the right side. For the last 3 days she has also had urinary hesitancy. She has not tried anything for her symptoms. There are no known aggravating or alleviating factors, although the patient states that she feels as though she tends to get urinary tract infections after sexual intercourse with her . She denies any associated fever/chills, headache, vision change, neck pain, chest pain, shortness of breath, cough, diarrhea, constipation, focal weakness, sensory changes, or any other complaints ED Past Medical Hx - Past Medical History Previous Medical History?: Yes Hx Hypertension: Yes Hx Heart Attack/AMI: No Hx Diabetes: Yes Hx Liver Disease: No Hx Renal Disease: Yes Hx Seizures: No Hx Psychiatric Treatment: Yes (anxiety depression) Hx Asthma: Yes (lasty inhaler use 03/2020) Hx COPD: Yes Hx HIV: Yes Additional medical history: HIGH CHOLESTEROL - Surgical History Past Surgical History?: Yes Hx Pacemaker: No Hx Internal Defibrillator: No Hx Cholecystectomy: Yes Additional Surgical History: d&c x1, insulin pump placement, TOTAL HYSTERECTOMY, boil removal to R inner thigh - Social History Smoking Status: Never Smoker Substance Use Type: None - Medications Home Medications: Home Medications Medication Instructions Recorded Confirmed Last Taken Type Abacavir/Dolutegravir/Lamivudi 1 each PO DAILY 07/10/15 08/11/20 09/08/17 History [Triumeq 600-50-300 mg Tablet] buPROPion XL [Wellbutrin XL] 150 mg PO QDAY 06/02/18 08/11/20 Unknown History ALBUTEROL NEB's [Proventil 0.083% 2.5 mg IH TID PRN 04/15/19 08/11/20 Unknown History NEBS] Lispro Insulin [HumaLOG] 0 unit SQ DAILY 04/15/19 08/11/20 12/29/19 History Omeprazole 40 mg PO DAILY 04/15/19 08/11/20 Unknown History Albuterol Mdi (or & Nicu Only) 2 puff IH QID PRN #8.5 gram 04/25/19 08/11/20 Unknown Rx [ProAir HFA Inhaler] ARIPiprazole [Abilify TAB] 15 mg PO QDAY #30 12/31/19 08/11/20 Unknown Rx AtorvaSTATin [Lipitor] 40 mg PO HS tablet 12/31/19 08/11/20 Unknown Rx Dulaglutide [Trulicity] 0.75 mg SQ QWEEK #1 12/31/19 08/11/20 Unknown Rx Gabapentin 800 mg PO TID capsule 12/31/19 08/11/20 Unknown Rx Insulin Lispro [Humalog] 0 unit SUB-Q ACHS vial 12/31/19 08/11/20 Unknown Rx Mirtazapine [Remeron 15mg TAB] 45 mg PO QHS #30 tablet 12/31/19 08/11/20 Unknown Rx Trazodone HCl 150 mg PO QHS PRN #30 12/31/19 08/11/20 Unknown Rx Insulin Glargine [Lantus VIAL] 40 units SUB-Q QHS #30 units 08/13/20 Unknown Rx Fluconazole [Diflucan TAB] 100 mg PO QDAY #3 tablet 08/14/20 Unknown Rx levoFLOXacin [Levaquin TAB] 750 mg PO QDAY #9 tablet 09/02/20 Unknown Rx oxyCODONE /ACETAMINOPHEN [Percocet 1 tab PO Q6HR PRN #10 tablet 09/02/20 Unknown Rx 5/325 mg] Cefpodoxime Proxetil 100 mg PO Q12HR #28 tablet 09/27/20 Unknown Rx ED Review of Systems ROS: Stated complaint: LOWER ABD PAINS Other details as noted in HPI Constitutional: denies: chills, fever Eyes: denies: eye pain, vision change ENT: denies: throat pain, congestion Respiratory: denies: cough, shortness of breath Cardiovascular: denies: chest pain, palpitations Gastrointestinal: denies: abdominal pain, nausea, vomiting, diarrhea Genitourinary: dysuria, other (hesitancy). denies: hematuria Musculoskeletal: back pain. denies: myalgia Skin: denies: rash Neurological: denies: headache, weakness, numbness Physical Exam - Physical Exam Vital Signs: Vital Signs 09/27/20 15:13 Temperature 98.2 F Pulse Rate 95 H Respiratory 20 Rate Blood Pressure 162/91 O2 Sat by Pulse 99 Oximetry Physical Exam: GENERAL: Well developed and well nourished. No acute distress HEENT: Normocephalic. No obvious signs of trauma. Moist mucous membranes. EYES: Extraocular movements are intact. Pupils are equal round and reactive to light bilaterally NECK: Supple. Trachea is midline. LUNGS: Nonlabored breathing. Equal chest rise bilaterally. Clear to auscultation bilaterally. HEART/CARDIOVASCULAR: Regular rate and rhythm. No murmurs or rubs. VASCULAR: 2+ peripheral pulses. Cap refill < 2 seconds ABDOMEN: Abdomen is soft and nondistended. There is tenderness to palpation of the right lower quadrant without any guarding or rebound. SKIN: Skin is warm and dry NEURO: Patient is awake, alert, and oriented. 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 No focal deficits. Normal motor and sensory exam throughout. Normal speech. MUSCULOSKELETAL: No obvious deformities. No significant tenderness. BACK/SPINE: No midline tenderness or step-offs of the C/T/L spine. There is bilateral CVA tenderness. ED Course Vital Signs 09/27/20 15:13 Temperature 98.2 F Pulse Rate 95 H Respiratory 20 Rate Blood Pressure 162/91 O2 Sat by Pulse 99 Oximetry ED Medical Decision Making - Lab Data Result diagrams: 09/27/20 15:33 09/27/20 15:33 Lab Results 09/27/20 09/27/20 09/27/20 Range/Units 15:33 15:33 15:33 WBC 6.6 (4.5-11.0) K/mm3 RBC 3.49 L (3.65-5.03) M/mm3 Hgb 11.7 (10.1-14.3) gm/dl Hct 34.6 (30.3-42.9) % MCV 99 H (79-97) fl MCH 34 H (28-32) pg MCHC 34 (30-34) % RDW 15.3 H (13.2-15.2) % Plt Count 157 (140-440) K/mm3 Lymph % (Auto) 42.1 H (13.4-35.0) % [place] % (Auto) 5.6 (0.0-7.3) % Eos % (Auto) 2.5 (0.0-4.3) % Baso % (Auto) 0.2 (0.0-1.8) % Lymph # (Auto) 2.8 (1.2-5.4) K/mm3 [place] # (Auto) 0.4 (0.0-0.8) K/mm3 Eos # (Auto) 0.2 (0.0-0.4) K/mm3 Baso # (Auto) 0.0 (0.0-0.1) K/mm3 Seg Neutrophils % 49.6 (40.0-70.0) % Seg Neutrophils # 3.3 (1.8-7.7) K/mm3 VBG pH 7.362 (7.320-7.420) Sodium 139 (137-145) mmol/L Potassium 5.0 (3.6-5.0) mmol/L Chloride 103.1 (98-107) mmol/L Carbon Dioxide 27 (22-30) mmol/L Anion Gap 14 mmol/L BUN 22 H (7-17) mg/dL Creatinine 1.3 H (0.6-1.2) mg/dL Estimated GFR 46 ml/min BUN/Creatinine Ratio 17 % Glucose 191 H (65-100) mg/dL Ketones Quantitative Negative (Negative) Calcium 9.4 (8.4-10.2) mg/dL Total Bilirubin 0.20 (0.1-1.2) mg/dL AST 34 (5-40) units/L ALT 42 (7-56) units/L Alkaline Phosphatase 96 (35-129) units/L Total Protein 6.6 (6.3-8.2) g/dL Albumin 3.8 L (3.9-5) g/dL Albumin/Globulin Ratio 1.4 % Lipase 20 (13-60) units/L Urine Color (Yellow) Urine Turbidity (Clear) Urine pH (5.0-7.0) Ur Specific [place] (1.003-1.030) Urine Protein (Negative) mg/dL Urine Glucose (UA) (Negative) mg/dL Urine Ketones (Negative) mg/dL Urine Blood (Negative) Urine Nitrite (Negative) Urine Bilirubin (Negative) Urine Urobilinogen (<2.0) mg/dL Ur Leukocyte Esterase (Negative) Urine WBC (Auto) (0.0-6.0) /HPF Urine RBC (Auto) (0.0-6.0) /HPF U Epithel Cells (Auto) (0-13.0) /HPF Urine Mucus /HPF Urine HCG, Qual (Negative) 09/27/20 Range/Units 15:57 WBC (4.5-11.0) K/mm3 RBC (3.65-5.03) M/mm3 Hgb (10.1-14.3) gm/dl Hct (30.3-42.9) % MCV (79-97) fl MCH (28-32) pg MCHC (30-34) % RDW (13.2-15.2) % Plt Count (140-440) K/mm3 Lymph % (Auto) (13.4-35.0) % [place] % (Auto) (0.0-7.3) % Eos % (Auto) (0.0-4.3) % Baso % (Auto) (0.0-1.8) % Lymph # (Auto) (1.2-5.4) K/mm3 [place] # (Auto) (0.0-0.8) K/mm3 Eos # (Auto) (0.0-0.4) K/mm3 Baso # (Auto) (0.0-0.1) K/mm3 Seg Neutrophils % (40.0-70.0) % Seg Neutrophils # (1.8-7.7) K/mm3 VBG pH (7.320-7.420) Sodium (137-145) mmol/L Potassium (3.6-5.0) mmol/L Chloride (98-107) mmol/L Carbon Dioxide (22-30) mmol/L Anion Gap mmol/L BUN (7-17) mg/dL Creatinine (0.6-1.2) mg/dL Estimated GFR ml/min BUN/Creatinine Ratio % Glucose (65-100) mg/dL Ketones Quantitative (Negative) Calcium (8.4-10.2) mg/dL Total Bilirubin (0.1-1.2) mg/dL AST (5-40) units/L ALT (7-56) units/L Alkaline Phosphatase (35-129) units/L Total Protein (6.3-8.2) g/dL Albumin (3.9-5) g/dL Albumin/Globulin Ratio % Lipase (13-60) units/L Urine Color Yellow (Yellow) Urine Turbidity Slightly-cloudy (Clear) Urine pH 5.0 (5.0-7.0) Ur Specific [place] 1.020 (1.003-1.030) Urine Protein >500 (Negative) mg/dL Urine Glucose (UA) Neg (Negative) mg/dL Urine Ketones Neg (Negative) mg/dL Urine Blood Mod (Negative) Urine Nitrite Neg (Negative) Urine Bilirubin Neg (Negative) Urine Urobilinogen < 2.0 (<2.0) mg/dL Ur Leukocyte Esterase Tr (Negative) Urine WBC (Auto) 64.0 H (0.0-6.0) /HPF Urine RBC (Auto) 11.0 (0.0-6.0) /HPF U Epithel Cells (Auto) 7.0 (0-13.0) /HPF Urine Mucus Few /HPF Urine HCG, Qual Negative (Negative) - Radiology Data CT ABDOMEN AND PELVIS WITH CONTRAST INDICATION / CLINICAL INFORMATION: Right lower quadrant and costovertebral angle tenderness. TECHNIQUE: Axial CT images were obtained through the abdomen and pelvis after 100 cc Omnipaque [address] scans at this location are performed using CT dose reduction for ALARA by means of automated exposure control. COMPARISON: CT abdomen and pelvis without contrast from 09/02/2020. FINDINGS: LOWER CHEST: No significant abnormality. LIVER: No significant abnormality. GALLBLADDER: Surgically absent. BILE DUCTS: No significant abnormality. PANCREAS: No significant abnormality. SPLEEN: No significant abnormality. ADRENALS: No significant abnormality. RIGHT KIDNEY / URETER: Unchanged mid pole cyst measuring up to 2.2 cm on image 47 of series 4. No other significant abnormalities. LEFT KIDNEY / URETER: Nonobstructive left upper renal pole nephrolithiasis versus other calcification measures up to 1.6 cm and is unchanged. Previously seen left perinephric fat stranding has improved. No other significant abnormalities. STOMACH / SMALL BOWEL: No significant abnormality. COLON: No significant abnormality. APPENDIX: No significant abnormality. PERITONEUM: No free fluid. No free air. No fluid collection. LYMPH NODES: No significant adenopathy. AORTA / ARTERIES: No significant abnormality. IVC / VEINS: No significant abnormality. URINARY BLADDER: The bladder is better distended compared to the prior exam with nonspecific mild wall thickening and perivesical fat stranding that is most notable along the bladder dome. No other significant abnormality. REPRODUCTIVE ORGANS: Uterus is absent. No significant adnexal abnormality. ADDITIONAL FINDINGS: Previously seen rectus diastasis is unchanged. SKELETAL SYSTEM: No significant abnormality. IMPRESSION: 1. Mild bladder wall thickening and perivesical fat stranding could indicate cystitis. 2. Additional findings as above. Signer Name: Johny Villela MD Signed: 09/27/2020 6:27 PM Workstation Name: [id number] - Medical Decision Making 40-year-old female with history of HIV on antiretroviral therapy as well as diabetes and CKD presenting with 1 week of dysuria and bilateral back pain as well as hesitancy. Initial assessment, she is afebrile and with normal vital signs other than hypertension. On physical examination, she is noted to have tenderness in the right lower quadrant of the abdomen without guarding or rebound. She also has bilateral CVA tenderness. The remainder of her physical exam is within normal limits. Labs were drawn in triage and have resulted revealing no significant leukocytosis or anemia. There are no significant electrolyte abnormalities. Creatinine is elevated at 1.3 but this is in line with her baseline of 1.3-1.7. Glucose is 191. Urinalysis shows 64 WBCs and 11 RBCs most consistent with urinary tract infection. We will give 1 L of IV fluids as well as IV ceftriaxone. Nonetheless, given her RLQ tenderness and CVA tenderness, we will obtain CT of the abdomen pelvis to assess for evidence of an infected obstructed kidney stone versus other intra-abdominal pathology. Repeat assessment at 7:50 PM, the patient is resting comfortably in the bed. She states she feels very to go home. CT of the abdomen pelvis reveals bladder wall thickening but no evidence of an obstructive kidney stone or other intra- abdominal pathology. I will prescribe Cefpodoxime 100 mg twice daily x14 days for possible pyelonephritis. Patient will follow up in 2 to 3 days with her primary care doctor. All this was discussed with the patient expressed understanding and agreement with plan of care. Critical care attestation.: If time is entered above; I have spent that time in minutes in the direct care of this critically ill patient, excluding procedure time. ED Disposition Clinical Impression: Pyelonephritis Disposition: DC-01 TO HOME OR SELFCARE Is pt being admited?: No Condition: Stable Instructions: Abdominal Pain (ED), Pyelonephritis, Adult Additional Instructions: Please take the antibiotic as prescribed. Return to the emergency department should you develop high fever, inability to tolerate food or drink by mouth, or any other new concerns. Follow-up with your primary care doctor in 2 to 3 days. Prescriptions: Cefpodoxime Proxetil 100 mg PO Q12HR #28 tablet Referrals: PRIMARY CARE, [Primary Care Provider] - 3-5 Days
[2020-09-27] MEDS ORDERED: cefTRIAXone/NS 2 GM/100 ML 2 GM/100 ML BAG IV ONE (17:04)
[2020-09-27] MEDS ORDERED: KETOROLAC 30 MG/1 ML INJ IV ONE (18:36)
--- NOTE | 2020-09-27 19:31 | Cat Scan Report ---
CT ABDOMEN AND PELVIS WITH CONTRAST INDICATION / CLINICAL INFORMATION: Right lower quadrant and costovertebral angle tenderness. TECHNIQUE: Axial CT images were obtained through the abdomen and pelvis after 100 cc Omnipaque [address] scans at this location are performed using CT dose reduction for ALARA by means of automated exposure control. COMPARISON: CT abdomen and pelvis without contrast from 09/02/2020. FINDINGS: LOWER CHEST: No significant abnormality. LIVER: No significant abnormality. GALLBLADDER: Surgically absent. BILE DUCTS: No significant abnormality. PANCREAS: No significant abnormality. SPLEEN: No significant abnormality. ADRENALS: No significant abnormality. RIGHT KIDNEY / URETER: Unchanged mid pole cyst measuring up to 2.2 cm on image 47 of series 4. No oth er significant abnormalities. LEFT KIDNEY / URETER: Nonobstructive left upper renal pole nephrolithiasis versus other calcification measures up to 1.6 cm and is unchanged. Previously seen left perinephric fat stranding has improved. No other significant abnormalities. STOMACH / SMALL BOWEL: No significant abnormality. COLON: No significant abnormality. APPENDIX: No significant abnormality. PERITONEUM: No free fluid. No free air. No fluid collection. LYMPH NODES: No significant adenopathy. AORTA / ARTERIES: No significant abnormality. IVC / VEINS: No significant abnormality. URINARY BLADDER: The bladder is better distended compared to the prior exam with nonspecific mild wal l thickening and perivesical fat stranding that is most notable along the bladder dome. No other sign ificant abnormality. REPRODUCTIVE ORGANS: Uterus is absent. No significant adnexal abnormality. ADDITIONAL FINDINGS: Previously seen rectus diastasis is unchanged. SKELETAL SYSTEM: No significant abnormality. IMPRESSION: 1. Mild bladder wall thickening and perivesical fat stranding could indicate cystitis. 2. Additional findings as above. Signer Name: Johny Villela MD Signed: 09/27/2020 7:27 PM Workstation Name: [id number]
[2020-09-28 05:48] VITALS: BP 178/90
== END 2020-09-27 20:50 | disposition home or self-care (01) ==
LOC: ED 15:01
DX: N12 Tubulo-interstitial nephritis, not specified as acute or chronic (principal); R10.9 Unspecified abdominal pain; I10 Essential (primary) hypertension; F32.9 Major depressive disorder, single episode, unspecified; F41.9 Anxiety disorder, unspecified; J44.9 Chronic obstructive pulmonary disease, unspecified; Z90.710 Acquired absence of both cervix and uterus; Z98.890 Other specified postprocedural states; Z21 Asymptomatic human immunodeficiency virus [HIV] infection status; Z79.4 Long term (current) use of insulin; Z79.899 Other long term (current) drug therapy; Z88.8 Allergy status to other drugs, medicaments and biological substances
CPT/HCPCS: 36415; 74177; 80053; 81001; 81025; 82010; 82805; 83690; 85025; 96365; 96366; 96375; 99284; J0696; J1885; J7030; Q9967; 80061; 82306; 84443; 87076; 87086; 87186

== ENCOUNTER 2020-10-07 14:58 | Emergency (ER) | payer MEDICARE ==
[2020-10-07 16:31] LABS: Basophils % (Auto) 0.2 % (0.0-1.8); Eosinophils # (Auto) 0.2 K/mm3 (0.0-0.4); Eosinophils % (Auto) 2.8 % (0.0-4.3); Hematocrit 32.4 % (30.3-42.9); Lymphocytes # (Auto) 2.9 K/mm3 (1.2-5.4); Lymphocytes % (Auto) 42.8 % (13.4-35.0); Mean Corpuscular HGB Conc 34 % (30-34); Mean Corpuscular Volume 99 fl (79-97); Monocytes # (Auto) 0.4 K/mm3 (0.0-0.8); Monocytes % (Auto) 6.7 % (0.0-7.3); Platelet Count 146 K/mm3 (140-440); Red Blood Count 3.27 M/mm3 (3.65-5.03); Red Cell Distribution Width 15.4 % (13.2-15.2)
[2020-10-07 16:51] LABS: Albumin 3.4 g/dL (3.9-5); Calcium 8.8 mg/dL (8.4-10.2)
[2020-10-07 16:59] LABS: Bacteria,Urine 1+ /HPF (Negative); Bilirubin,Urine NEG (Negative); Blood,Urine MOD (Negative); Color,Urine Yellow (Yellow); Mucus,Urine FEW /HPF; Urobilinogen,Urine < 2.0 mg/dL (<2.0)
[2020-10-07 17:00] LABS: Protein,Urine >500 mg/dL (Negative)
[2020-10-07] MEDS ORDERED: ONDANSETRON 4 MG/2 ML INJ IV ONE (19:13)
[2020-10-07] MEDS ORDERED: MORPHINE 4 MG/1 ML INJ IV ONE (19:13)
[2020-10-07] MEDS ORDERED: SODIUM CHLORIDE 0.9% 1000 ML 1,000 ML IV ONE (19:13)
--- NOTE | 2020-10-07 19:15 | Emergency Department Report ---
ED General Adult HPI - General Chief complaint: Abdominal Pain Stated complaint: LOWER AB PAIN/DIZZINESS Time Seen by Provider: 10/07/20 18:42 Source: patient Mode of arrival: Ambulatory Limitations: No Limitations - History of Present Illness Initial comments: 40-year-old female with a past medical history of diabetes, hyperlipidemia, CKD, recurrent UTIs, chronic back pain, HIV (currently on antiretrovirals and has been compliant with her meds/undetectable viral load) and asthma/chronic bronchitis presents to the ER today with complaints of low back pain, lower abdominal pain and feeling dizzy. Patient states that she started with a low back pain and lower abdominal pain 2 days ago. She states that the low back pain the past 2 days as has been more intense than her typical chronic low back pain. She states that the pain has been constant. She reports dysuria and urinary frequency but denies any nausea, vomiting, diarrhea or any other bowel changes. She reports no abnormal vaginal discharge. She denies any pain down into her legs, any numbness, tingling, weakness in the extremities, saddle anesthesia. Patient states that the dizziness has also been intermittent for the past 2 days. She described as a spinning sensation worse when she turns her head left or right. She states that sometimes she did feel like she was about to pass out and she does get diaphoretic. She states that she typically wears glasses for distance, but she has noticed slight increase in blurry vision since she has been having dizziness. She denies any headache. She denies any speech changes, facial numbness, tingling or facial weakness, she denies any focal weakness with dizziness, chest pain or shortness of breath. She denies any uri symptoms, fever or chills. MD Complaint: Abdominal pain/back pain/dizzy - Related Data Home Medications Medication Instructions Recorded Confirmed Last Taken Abacavir/Dolutegravir/Lamivudi 1 each PO DAILY 07/10/15 08/11/20 09/08/17 [Triumeq 600-50-300 mg Tablet] buPROPion XL [Wellbutrin XL] 150 mg PO QDAY 06/02/18 08/11/20 Unknown ALBUTEROL NEB's [Proventil 0.083% 2.5 mg IH TID PRN 04/15/19 08/11/20 Unknown NEBS] Lispro Insulin [HumaLOG] 0 unit SQ DAILY 04/15/19 08/11/20 12/29/19 Omeprazole 40 mg PO DAILY 04/15/19 08/11/20 Unknown Previous Rx's Medication Instructions Recorded Last Taken Type Albuterol Mdi (or & Nicu Only) 2 puff IH QID PRN #8.5 gram 04/25/19 Unknown Rx [ProAir HFA Inhaler] ARIPiprazole [Abilify TAB] 15 mg PO QDAY #30 12/31/19 Unknown Rx AtorvaSTATin [Lipitor] 40 mg PO HS tablet 12/31/19 Unknown Rx Dulaglutide [Trulicity] 0.75 mg SQ QWEEK #1 12/31/19 Unknown Rx Gabapentin 800 mg PO TID capsule 12/31/19 Unknown Rx Insulin Lispro [Humalog] 0 unit SUB-Q ACHS vial 12/31/19 Unknown Rx Mirtazapine [Remeron 15mg TAB] 45 mg PO QHS #30 tablet 12/31/19 Unknown Rx Trazodone HCl 150 mg PO QHS PRN #30 12/31/19 Unknown Rx Insulin Glargine [Lantus VIAL] 40 units SUB-Q QHS #30 units 08/13/20 Unknown Rx DOXYCYCLINE Hyclate [Vibramycin 100 mg PO Q12HR #14 capsule 10/07/20 Unknown Rx CAP] Fluconazole [Diflucan TAB] 200 mg PO QDAY #2 tablet 10/07/20 Unknown Rx HYDROcodone/APAP 5-325 [[place] 1 each PO Q6HR PRN #12 tablet 10/07/20 Unknown Rx 5/325] Meclizine [Antivert] 25 mg PO TID PRN #30 tablet 10/07/20 Unknown Rx Allergies Allergy/AdvReac Type Severity Reaction Status Date / Time iodine Allergy Swelling Verified 08/26/19 12:57 sulfamethoxazole Allergy Rash Verified 08/26/19 12:57 [From Bactrim] trimethoprim [From Bactrim] Allergy Rash Verified 08/26/19 12:57 metformin AdvReac Nausea Verified 08/26/19 12:57 morphine AdvReac Nausea Verified 10/07/20 19:52 seafood Allergy Rash Uncoded 02/16/18 13:38 ED Review of Systems ROS: Stated complaint: LOWER AB PAIN/DIZZINESS Other details as noted in HPI Comment: All other systems reviewed and negative ED Past Medical Hx - Past Medical History Previous Medical History?: Yes Hx Hypertension: Yes Hx Heart Attack/AMI: No Hx Diabetes: Yes Hx Liver Disease: No Hx Renal Disease: Yes Hx Seizures: No Hx Psychiatric Treatment: Yes (anxiety depression) Hx Asthma: Yes (lasty inhaler use 03/2020) Hx COPD: Yes Hx HIV: Yes Additional medical history: HIGH CHOLESTEROL - Surgical History Hx Pacemaker: No Hx Internal Defibrillator: No Hx Cholecystectomy: Yes Additional Surgical History: d&c x1, insulin pump placement, TOTAL HYSTERECTOMY, boil removal to R inner thigh - Social History Smoking Status: Current Every Day Smoker Substance Use Type: Prescribed - Medications Home Medications: Home Medications Medication Instructions Recorded Confirmed Last Taken Type Abacavir/Dolutegravir/Lamivudi 1 each PO DAILY 07/10/15 08/11/20 09/08/17 History [Triumeq 600-50-300 mg Tablet] buPROPion XL [Wellbutrin XL] 150 mg PO QDAY 06/02/18 08/11/20 Unknown History ALBUTEROL NEB's [Proventil 0.083% 2.5 mg IH TID PRN 04/15/19 08/11/20 Unknown History NEBS] Lispro Insulin [HumaLOG] 0 unit SQ DAILY 04/15/19 08/11/20 12/29/19 History Omeprazole 40 mg PO DAILY 04/15/19 08/11/20 Unknown History Albuterol Mdi (or & Nicu Only) 2 puff IH QID PRN #8.5 gram 04/25/19 08/11/20 Unknown Rx [ProAir HFA Inhaler] ARIPiprazole [Abilify TAB] 15 mg PO QDAY #30 12/31/19 08/11/20 Unknown Rx AtorvaSTATin [Lipitor] 40 mg PO HS tablet 12/31/19 08/11/20 Unknown Rx Dulaglutide [Trulicity] 0.75 mg SQ QWEEK #1 12/31/19 08/11/20 Unknown Rx Gabapentin 800 mg PO TID capsule 12/31/19 08/11/20 Unknown Rx Insulin Lispro [Humalog] 0 unit SUB-Q ACHS vial 12/31/19 08/11/20 Unknown Rx Mirtazapine [Remeron 15mg TAB] 45 mg PO QHS #30 tablet 12/31/19 08/11/20 Unknown Rx Trazodone HCl 150 mg PO QHS PRN #30 12/31/19 08/11/20 Unknown Rx Insulin Glargine [Lantus VIAL] 40 units SUB-Q QHS #30 units 08/13/20 Unknown Rx DOXYCYCLINE Hyclate [Vibramycin 100 mg PO Q12HR #14 capsule 10/07/20 Unknown Rx CAP] Fluconazole [Diflucan TAB] 200 mg PO QDAY #2 tablet 10/07/20 Unknown Rx HYDROcodone/APAP 5-325 [[place] 1 each PO Q6HR PRN #12 tablet 10/07/20 Unknown Rx 5/325] Meclizine [Antivert] 25 mg PO TID PRN #30 tablet 10/07/20 Unknown Rx ED Physical Exam - General Limitations: No Limitations General appearance: alert, in no apparent distress - Head Head exam: Present: atraumatic, normocephalic, normal inspection - Eye Eye exam: Present: normal appearance, PERRL, EOMI Pupils: Present: normal accommodation - ENT ENT exam: Present: normal exam, mucous membranes moist, TM's normal bilaterally - Neck Neck exam: Present: normal inspection, full ROM. Absent: tenderness, meningismus - Respiratory Respiratory exam: Present: normal lung sounds bilaterally. Absent: respiratory distress, wheezes, rales, rhonchi - Cardiovascular Cardiovascular Exam: Present: regular rate, normal rhythm, normal heart sounds - GI/Abdominal GI/Abdominal exam: Present: soft, tenderness (Diffuse without guarding or rigidity ). Absent: distended - Extremities Exam Extremities exam: Present: normal inspection, full ROM. Absent: tenderness, pedal edema, calf tenderness - Back Exam Back exam: Present: normal inspection, paraspinal tenderness (lumbar area bilaterally ) - Neurological Exam Neurological exam: Present: alert, oriented X3, CN II-XII intact - Psychiatric Psychiatric exam: Present: normal affect, normal mood - Skin Skin exam: Present: intact ED Course Vital Signs 10/07/20 10/07/20 16:02 19:47 Temperature 98.7 F Pulse Rate 96 H 94 H Respiratory 20 Rate Blood Pressure 119/66 Blood Pressure 160/88 [Left] O2 Sat by Pulse 100 Oximetry ED Medical Decision Making - Lab Data Result diagrams: 10/07/20 16:20 10/07/20 16:20 - EKG Data EKG shows normal: sinus rhythm Rate: normal (94) No standard instances Rhythm: NSR (94) - EKG Data When compared to previous EKG there are: no significant change (when compared to EKG from 12/2018) Interpretation: no acute changes - Medical Decision Making Patient currently resting comfortably in the bed watching TV on her phone. She is not in any acute distress. Patient has a GCS of 15. She has no focal defi cits on exam. She has a normal gait. She is not toxic or ill-appearing. No signs of significant dehydration on exam. Reviewed patient past visits. She is well-known to this ER. She has been seen here several times for abdominal pain in the past most recent was on September 27. Patient has had several CTs of abdomen pelvis. Most recently again was September 27 which showed cystitis but nothing acute. At that time patient was treated for pyelonephritis and was discharged home with prescriptions for Cefopime which she stated that she completed. Urine culture from 09/27/20 was positive for staph aureus which was sensitive to clindamycin, daptomycin, oxacillin, tetracycline, vancomycin and Bactrim. Labs from today reviewed --CBC shows nothing acute. CMP shows hyperglycemia with a blood sugar of 291 (repeat fs was 267) , BUN of 27 and creatinine of 1.5 but when compared to her previous CMPs, her BUN and creatinine are no worse than her previous. No evidence of DKA today. Her troponin was within normal limits. Her urinalysis appears to be more contaminated than true UTI. EKG showed no STEMI, significant dysrhythmias or any other acute ischemic changes and there was no changes to EKG when compared to her previous EKG from 2019. Patient also has no orthostatic. Discussed case with Dr Mcneill, he agree with work up and given patient normal mental status with no neurological deficits on exam, and she is not toxic or ill-appearing and no significant changes on her lab work or EKG, there is no indication for any additional testing or admission at this time. Given patient history of recurrent UTIs, and she is symptomatic with dysuria and urinary frequency, patient will be sent home on doxycycline as a precaution; urine culture from today is pending. Suspect her dizziness could relate to BPV and she will be started on meclizine, also recommended she drink lots of water for hydration and recommend close follow-up with the primary care doctor. Patient expressed understanding of instructions and agree with plan. She understands if her symptoms worsens or changes in which she needs to return to the ER. Critical care attestation.: If time is entered above; I have spent that time in minutes in the direct care of this critically ill patient, excluding procedure time. ED Disposition Clinical Impression: Lower abdominal pain, Lower back pain, Dysuria, Vertigo Disposition: DC-01 TO HOME OR SELFCARE Is pt being admited?: No Does the pt Need Aspirin: No Condition: Stable Instructions: Abdominal Pain, Adult, [id number], Dysuria, Chronic Back Pain, [id number]-Jwsg, Dizziness, Abdominal Pain (ED) Additional Instructions: I recommend that you take the doxycycline as prescribed. Take the hydrocodone and the robaxin as prescribed. Drink lots of water. I recommend close follow up with PCP in next 2-3 days. Return to ED if worse. Prescriptions: Meclizine [Antivert] 25 mg PO TID PRN #30 tablet PRN Reason: Vertigo Fluconazole [Diflucan TAB] 200 mg PO QDAY #2 tablet HYDROcodone/APAP 5-325 [[place] 5/325] 1 each PO Q6HR PRN #12 tablet PRN Reason: Pain DOXYCYCLINE Hyclate [Vibramycin CAP] 100 mg PO Q12HR #14 capsule Referrals: OMAIRA CONTRERAS MD [Primary Care Provider] - 3-5 Days Forms: Work/School Release Form(ED) Time of Disposition: 21:26
[2020-10-07] MEDS ORDERED: diphenhydrAMINE 50 MG/ML VIAL IV ONE (19:47)
[2020-10-07 19:48] VITALS: BP 160/88
[2020-10-07] MEDS ORDERED: oxyCODONE /ACETAMINOPHEN 5-325MG TAB PO ONE (21:08)
--- NOTE | 2020-10-11 11:07 | Electrocardiograph Report ---
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
== END 2020-10-07 22:22 | disposition home or self-care (01) ==
LOC: ED 14:58
DX: M54.5 Low back pain (principal); R10.30 Lower abdominal pain, unspecified; R42 Dizziness and giddiness; R30.0 Dysuria; I10 Essential (primary) hypertension; E11.9 Type 2 diabetes mellitus without complications; F32.9 Major depressive disorder, single episode, unspecified; F41.9 Anxiety disorder, unspecified; E78.5 Hyperlipidemia, unspecified; J44.9 Chronic obstructive pulmonary disease, unspecified; F17.200 Nicotine dependence, unspecified, uncomplicated; Z98.890 Other specified postprocedural states; Z79.899 Other long term (current) drug therapy; Z88.8 Allergy status to other drugs, medicaments and biological substances; Z91.041 Radiographic dye allergy status
CPT/HCPCS: 36415; 80053; 81001; 82962; 84484; 85025; 87086; 93005; 96361; 96374; 96375; 99284; J1200; J2270; J2405; J7030

== ENCOUNTER 2020-10-22 11:11 | Emergency (ER) | payer MEDICARE ==
[2020-10-22 14:54] LABS: Bacteria,Urine 1+ /HPF (Negative); Bilirubin,Urine NEG (Negative); Blood,Urine MOD (Negative); Color,Urine Yellow (Yellow); Hyaline Casts,Urine 3 /LPF; Mucus,Urine FEW /HPF; Urobilinogen,Urine < 2.0 mg/dL (<2.0)
[2020-10-22 14:55] LABS: Protein,Urine >500 mg/dL (Negative)
[2020-10-22 14:56] LABS: HCG Qualitative,Urine Negative (Negative)
[2020-10-22] MEDS ORDERED: HYDROcodone/ACETAMINOPHEN 7.5-325MG TAB PO ONE (15:13)
--- NOTE | 2020-10-22 15:30 | Emergency Department Report ---
ED Abdominal Pain HPI - General Chief Complaint: Urogenital-Female Stated Complaint: LOWER ABD PAIN Time Seen by Provider: 10/22/20 13:24 Source: patient Mode of arrival: Ambulatory Limitations: No Limitations - History of Present Illness Initial Comments: 40-year-old obese female presents to the emergency room for lower back pain and dysuria. Patient states that the pain is sharp and she has hard time urinating. Patient denies any fever no nausea no vomiting. Patient states that she has taken Azo's which has not helped. Patient denies any vaginal discharge no vaginal bleeding. Patient states that she had a hysterectomy. Patient is a brittle diabetic, HIV positive, hypertension COPD anxiety and depression sent. Patient reports that she is undetectable. Patient reports she has noticed her blood sugars have been running high and she has been adjusting with her insulin pump. Patient reports that she is followed by Dr. 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 Rosario monte infectious disease provider. MD Complaint: abdominal pain Onset/Timin -: days(s) Location: suprapubic Radiation: none Severity scale (0 -10): 8 Quality: stabbing, sharp Consistency: constant Improves With: nothing Worsens With: nothing Associated Symptoms: dysuria. denies: nausea, vomiting, diarrhea - Related Data Home Medications Medication Instructions Recorded Confirmed Last Taken Abacavir/Dolutegravir/Lamivudi 1 each PO DAILY 07/10/15 08/11/20 09/08/17 [Triumeq 600-50-300 mg Tablet] Doxepin 25 10/22/20 Unknown Gabapentin [Neurontin] 800 mg PO 10/22/20 Unknown Insulin Lispro-Aabc [Lyumjev 10/22/20 Unknown Kwikpen U-100] Lispro Insulin 1000units 10/22/20 Unknown Losartan [Cozaar] 100 mg PO QDAY 10/22/20 10/22/20 Unknown Previous Rx's Medication Instructions Recorded Last Taken Type Albuterol Mdi (or & Nicu Only) 2 puff IH QID PRN #8.5 gram 04/25/19 Unknown Rx [ProAir HFA Inhaler] levoFLOXacin [Levaquin] 750 mg PO QDAY 5 Days #5 tablet 10/22/20 Unknown Rx traMADoL [Ultram 50 MG tab] 50 mg PO Q6HR PRN #12 tablet 10/22/20 Unknown Rx Allergies Allergy/AdvReac Type Severity Reaction Status Date / Time iodine Allergy Swelling Verified 08/26/19 12:57 sulfamethoxazole Allergy Rash Verified 08/26/19 12:57 [From Bactrim] trimethoprim [From Bactrim] Allergy Rash Verified 08/26/19 12:57 metformin AdvReac Nausea Verified 08/26/19 12:57 morphine AdvReac Nausea Verified 10/07/20 19:52 seafood Allergy Rash Uncoded 02/16/18 13:38 ED Review of Systems ROS: Stated complaint: LOWER ABD PAIN Other details as noted in HPI Comment: All other systems reviewed and negative ED Past Medical Hx - Past Medical History Previous Medical History?: Yes Hx Hypertension: Yes Hx Heart Attack/AMI: No Hx Diabetes: Yes Hx Liver Disease: No Hx Renal Disease: Yes Hx Seizures: No Hx Psychiatric Treatment: Yes (anxiety depression) Hx Asthma: Yes (lasty inhaler use 03/2020) Hx COPD: Yes Hx HIV: Yes Additional medical history: HIGH CHOLESTEROL - Surgical History Past Surgical History?: Yes Hx Pacemaker: No Hx Internal Defibrillator: No Hx Cholecystectomy: Yes Additional Surgical History: d&c x1, insulin pump placement, TOTAL HYSTERECTOMY, boil removal to R inner thigh - Social History Smoking Status: Current Every Day Smoker Substance Use Type: None - Medications Home Medications: Home Medications Medication Instructions Recorded Confirmed Last Taken Type Abacavir/Dolutegravir/Lamivudi 1 each PO DAILY 07/10/15 08/11/20 09/08/17 History [Triumeq 600-50-300 mg Tablet] Albuterol Mdi (or & Nicu Only) 2 puff IH QID PRN #8.5 gram 04/25/19 08/11/20 Unknown Rx [ProAir HFA Inhaler] Doxepin 25 10/22/20 Unknown History Gabapentin [Neurontin] 800 mg PO 10/22/20 Unknown History Insulin Lispro-Aabc [Lyumjev 10/22/20 Unknown History Kwikpen U-100] Lispro Insulin 1000units 10/22/20 Unknown History Losartan [Cozaar] 100 mg PO QDAY 10/22/20 10/22/20 Unknown History levoFLOXacin [Levaquin] 750 mg PO QDAY 5 Days #5 tablet 10/22/20 Unknown Rx traMADoL [Ultram 50 MG tab] 50 mg PO Q6HR PRN #12 tablet 10/22/20 Unknown Rx ED Physical Exam - General Limitations: No Limitations General appearance: alert, in no apparent distress - Head Head exam: Present: atraumatic, normocephalic - Eye Eye exam: Present: normal appearance - ENT ENT exam: Present: mucous membranes moist - Neck Neck exam: Present: normal inspection, full ROM - Respiratory Respiratory exam: Present: normal lung sounds bilaterally. Absent: chest wall tenderness - Cardiovascular Cardiovascular Exam: Present: regular rate - GI/Abdominal GI/Abdominal exam: Present: soft, tenderness. Absent: distended - Extremities Exam Extremities exam: Present: normal inspection - Back Exam Back exam: Present: CVA tenderness (R), CVA tenderness (L) - Neurological Exam Neurological exam: Present: alert, oriented X3 - Psychiatric Psychiatric exam: Present: normal affect, normal mood - Skin Skin exam: Present: warm, dry, intact, normal color. Absent: rash ED Course Vital Signs 10/22/20 12:33 Temperature 98.8 F Pulse Rate 92 H Respiratory 16 Rate Blood Pressure 165/76 [Right] O2 Sat by Pulse 100 Oximetry ED Medical Decision Making - Radiology Data Radiology results: report reviewed [facility] [address] [place] [address] Cat Scan Report Signed Patient: POLINA SIMS MR#: [id number] : 1980 Acct:[id number] Age/Sex: 40 / F ADM Date: 10/22/20 Loc: ED Attending Dr: Ordering Physician: ELISEO SAMPSON Date of Service: 10/22/20 Procedure(s): CT abdomen pelvis wo con Accession Number(s): [id number] cc: ELISEO SAMPSON CT ABDOMEN AND PELVIS WITHOUT CONTRAST INDICATION / CLINICAL INFORMATION: Back and pelvic pain, hematuria. TECHNIQUE: Axial CT images were obtained through the abdomen and pelvis without IV contrast. All CT scans at this location are performed using CT dose reduction for ALARA by means of automated exposure control. COMPARISON: CT abdomen and pelvis with contrast from 09/27/2020 FINDINGS: LOWER CHEST: No significant abnormality. LIVER: No significant abnormality. GALLBLADDER: Surgically absent. BILE DUCTS: No significant abnormality. PANCREAS: No significant abnormality. SPLEEN: No significant abnormality. ADRENALS: No significant abnormality. RIGHT KIDNEY / URETER: Unchanged mid pole right renal cyst. Mild perinephric fat stranding is unchanged. No other significant abnormality. LEFT KIDNEY / URETER: Unchanged simple upper pole left renal cyst. Mild perinephric fat stranding is unchanged. No other significant abnormality. STOMACH / SMALL BOWEL: No significant abnormality. COLON: No significant abnormality. APPENDIX: No significant abnormality. PERITONEUM: No free fluid. No free air. No fluid collection. LYMPH NODES: No significant adenopathy. AORTA / ARTERIES: No significant abnormality. IVC / VEINS: No significant abnormality. URINARY BLADDER: The urinary bladder is incompletely distended with mild/moderate generalized wall thickening and mild perivesical fat stranding. No other significant abnormality. REPRODUCTIVE ORGANS: Uterus is absent. No significant adnexal abnormality. ADDITIONAL FINDINGS: Rectus diastasis is again seen with a stable ventral hernia containing fat and unremarkable small bowel loops. SKELETAL SYSTEM: No significant abnormality. IMPRESSION: 1. Under distention of the bladder with bladder wall thickening and mild surrounding fat stranding that could be due to under distention and/or cystitis. 2. No other acute findings to explain the patient's pain or hematuria. Signer Name: Johny Villela MD Signed: 10/22/2020 4:22 PM Workstation Name: [id number] Transcribed By: [place] Dictated By: Johny Villela MD Electronically Authenticated By: Johny Villela MD Signed Date/Time: 10/22/201621 DD/ 16 TD/TT: Print Cancel - Medical Decision Making 40-year-old obese female presents to the emergency room for lower back pain and dysuria. Patient states that the pain is sharp and she has hard time urinating. Patient denies any fever no nausea no vomiting. Patient states that she has taken Azo's which has not helped. Patient denies any vaginal discharge no vaginal bleeding. Patient states that she had a hysterectomy. Patient is a brittle diabetic, HIV positive, hypertension COPD anxiety and depression sent. Patient reports that she is undetectable. Patient reports she has noticed her blood sugars have been running high and she has been adjusting with her insulin pump. Patient reports that she is followed by Dr. 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 Rosario monte infectious disease provider. Critical care attestation.: If time is entered above; I have spent that time in minutes in the direct care of this critically ill patient, excluding procedure time. ED Disposition Clinical Impression: Cystitis Disposition: DC-01 TO HOME OR SELFCARE Is pt being admited?: No Does the pt Need Aspirin: No Condition: Stable Additional Instructions: CT scan shows that you have some bladder inflammatory changes. Recommend complete Levaquin as prescribed. Follow-up with a urologist. Prescriptions: levoFLOXacin [Levaquin] 750 mg PO QDAY 5 Days #5 tablet traMADoL [Ultram 50 MG tab] 50 mg PO Q6HR PRN #12 tablet PRN Reason: Pain Referrals: PRIMARY CAREMD [Primary Care Provider] - 3-5 Days ELLIS HADDAD MD [Staff Physician] - 3-5 Days Forms: Work/School Release Form(ED) Time of Disposition: 17:00
--- NOTE | 2020-10-22 16:27 | Cat Scan Report ---
CT ABDOMEN AND PELVIS WITHOUT CONTRAST INDICATION / CLINICAL INFORMATION: Back and pelvic pain, hematuria. TECHNIQUE: Axial CT images were obtained through the abdomen and pelvis without IV contrast. All CT scans at is location are performed using CT dose reduction for ALARA by means of automated exposure control. COMPARISON: CT abdomen and pelvis with contrast from 09/27/2020 FINDINGS: LOWER CHEST: No significant abnormality. LIVER: No significant abnormality. GALLBLADDER: Surgically absent. BILE DUCTS: No significant abnormality. PANCREAS: No significant abnormality. SPLEEN: No significant abnormality. ADRENALS: No significant abnormality. RIGHT KIDNEY / URETER: Unchanged mid pole right renal cyst. Mild perinephric fat stranding is unchang ed. No other significant abnormality. LEFT KIDNEY / URETER: Unchanged simple upper pole left renal cyst. Mild perinephric fat stranding is unchanged. No other significant abnormality. STOMACH / SMALL BOWEL: No significant abnormality. COLON: No significant abnormality. APPENDIX: No significant abnormality. PERITONEUM: No free fluid. No free air. No fluid collection. LYMPH NODES: No significant adenopathy. AORTA / ARTERIES: No significant abnormality. IVC / VEINS: No significant abnormality. URINARY BLADDER: The urinary bladder is incompletely distended with mild/moderate generalized wall th ickening and mild perivesical fat stranding. No other significant abnormality. REPRODUCTIVE ORGANS: Uterus is absent. No significant adnexal abnormality. ADDITIONAL FINDINGS: Rectus diastasis is again seen with a stable ventral hernia containing fat and u nremarkable small bowel loops. SKELETAL SYSTEM: No significant abnormality. IMPRESSION: 1. Under distention of the bladder with bladder wall thickening and mild surrounding fat stranding th at could be due to under distention and/or cystitis. 2. No other acute findings to explain the patient's pain or hematuria. Signer Name: Johny Villela MD Signed: 10/22/2020 4:22 PM Workstation Name: [id number]
[2020-10-22 17:13] VITALS: BP 161/84
== END 2020-10-22 17:13 | disposition home or self-care (01) ==
LOC: ED 11:11
DX: N30.90 Cystitis, unspecified without hematuria (principal); F17.200 Nicotine dependence, unspecified, uncomplicated; I10 Essential (primary) hypertension; E11.9 Type 2 diabetes mellitus without complications; F41.9 Anxiety disorder, unspecified; F32.9 Major depressive disorder, single episode, unspecified; J44.9 Chronic obstructive pulmonary disease, unspecified; E78.00 Pure hypercholesterolemia, unspecified; Z21 Asymptomatic human immunodeficiency virus [HIV] infection status; Z90.710 Acquired absence of both cervix and uterus; Z79.899 Other long term (current) drug therapy; Z88.2 Allergy status to sulfonamides; Z88.8 Allergy status to other drugs, medicaments and biological substances; Z91.041 Radiographic dye allergy status; Z91.013 Allergy to seafood; Z90.49 Acquired absence of other specified parts of digestive tract; Z98.890 Other specified postprocedural states
CPT/HCPCS: 74176; 81001; 81025

== ENCOUNTER 2020-10-24 15:51 | Inpatient (IN) | payer MEDICARE ==
--- NOTE | 2020-10-24 16:52 | Event Note ---
ED Screening Note Date of service: 10/24/20 Time: 16:51 ED Screening Note: 40-year-old female patient with history of diabetes, HIV, and recurrent cystitis presents to the emergency for the fourth time in one month with complaints of dizziness, abdominal pain, and painful urination. Patient's most recent evaluation was 2 days ago. She was diagnosed with a urinary tract infection and prescribed Levaquin. States her symptoms have not improved. 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 She has not been evaluated by a urologist. She has taken multiple antibiotic over the last couple of months without improvement. Tachycardic in triage. General: Awake, appropriately interactive, no acute distress. Neck: Supple. Full range of motion intact. Cardiovascular: Normal peripheral perfusion. Pulmonary: No respiratory distress. Patient is speaking normally without use of accessory muscles. Skin: No apparent rashes or lesions. Neurological: No facial asymmetry. Speech is clear. Follows commands. Patient is alert and oriented. Musculoskeletal: Moves all four extremities spontaneously with normal range of motion. Psych: Cooperative. Appropriate mood and affect. I have greeted and performed a focused rapid initial assessment of this patient. A comprehensive ED assessment and evaluation of the patient, analysis of all test results, and completion of the medical decision-making process will be conducted by additional ED providers. This initial assessment/diagnostic orders/clinical plan/treatment(s) is/are subject to change based on patients health status, clinical progression and re-assessment. Further treatment and workup at subsequent clinical provider's discretion. Patient/guardian urged not to elope from the ED as their condition may be serious if not clinically assessed and managed.
[2020-10-24 17:19] LABS: Bacteria,Urine 2+ /HPF (Negative); Bilirubin,Urine NEG (Negative); Blood,Urine MOD (Negative); Color,Urine Amber (Yellow); Mucus,Urine FEW /HPF; Urobilinogen,Urine < 2.0 mg/dL (<2.0)
[2020-10-24 17:21] LABS: Protein,Urine >500 mg/dL (Negative)
[2020-10-24 18:45] LABS: Basophils % (Auto) 0.1 % (0.0-1.8); Eosinophils # (Auto) 0.2 K/mm3 (0.0-0.4); Eosinophils % (Auto) 2.4 % (0.0-4.3); Hematocrit 34.4 % (30.3-42.9); Hemoglobin 11.6 gm/dl (10.1-14.3); Lymphocytes # (Auto) 2.8 K/mm3 (1.2-5.4); Lymphocytes % (Auto) 39.5 % (13.4-35.0); Mean Corpuscular HGB Conc 34 % (30-34); Mean Corpuscular Volume 99 fl (79-97); Monocytes # (Auto) 0.5 K/mm3 (0.0-0.8); Monocytes % (Auto) 6.4 % (0.0-7.3); Platelet Count 153 K/mm3 (140-440); Red Blood Count 3.49 M/mm3 (3.65-5.03)
[2020-10-24 19:07] LABS: Albumin 3.5 g/dL (3.9-5)
[2020-10-25] MEDS ORDERED: ONDANSETRON 4 MG/2 ML INJ ONE (00:57)
[2020-10-25] MEDS ORDERED: HYDROmorphone 1 MG/1 ML INJ ONE (00:58)
[2020-10-25] MEDS ORDERED: diphenhydrAMINE 50 MG/ML VIAL ONE ×2 (01:37→02:40)
[2020-10-25] MEDS ORDERED: HYDROmorphone 1 MG/1 ML INJ IV ONE (02:11)
--- NOTE | 2020-10-25 02:19 | Emergency Department Report ---
ED Abdominal Pain HPI - General Chief Complaint: Abdominal Pain Stated Complaint: DIZZY, ABD PAIN, LOWER PAIN PUI?: No Time Seen by Provider: 10/24/20 23:55 Source: patient Mode of arrival: Ambulatory Limitations: No Limitations - History of Present Illness Initial Comments: Patient is a 40-year-old female presents emergency room with complaints of bilateral lower back pain, bilateral flank pain, bilateral lower abdominal pain, dizziness and syncope. Patient states her flank pain, back pain and abdominal pain started 1 to 2 weeks ago and is worsening. Patient states she saw her primary care on Thursday and evaluated and the patient was sent here for evaluation. Patient states she was seen here on Thursday and given medication for discharge home. Patient states she had a CAT scan on Thursday. Patient states that she is not able to tolerate the pain. Patient denies nausea vomiting. Patient denies fever and chills. Patient states today she went to work and she got dizzy and had a syncopal episode in her work wanted her to be evaluated before coming back in the emergency room. Patient denies headache. Patient denies stiff neck. Patient denies fever and chills. Patient denies blurry vision. Patient states she only had 1 syncopal episode. Patient states her loss of consciousness was brief. Patient states it was witnessed by her coworkers. Patient denies head trauma. Patient denies recent travel. Patient denies recent international travel. Patient denies exposure to the novel coronavirus. Patient denies sick contacts. Patient denies fever and chills. Patient denies cough. Patient denies juliette rrhea. Patient denies coming in contact with anybody with symptoms of the novel coronavirus. MD Complaint: abdominal pain -: week(s) Location: L flank, R flank Radiation: LLQ, RLQ, back Migration to: no migration Severity: severe Severity scale (0 -10): 10 Quality: stabbing Consistency: constant Improves With: rest Worsens With: movement Associated Symptoms: nausea. denies: vomiting, diarrhea, fever, chills, constipation, dysuria, hematemesis, hematochezia, melena, hematuria, syncope - Related Data LMP (females 10-50): last week Home Medications Medication Instructions Recorded Confirmed Last Taken Abacavir/Dolutegravir/Lamivudi 1 each PO DAILY 07/10/15 08/11/20 09/08/17 [Triumeq 600-50-300 mg Tablet] Doxepin 25 10/22/20 Unknown Gabapentin [Neurontin] 800 mg PO 10/22/20 Unknown Insulin Lispro-Aabc [Lyumjev 10/22/20 Unknown Kwikpen U-100] Lispro Insulin 1000units 10/22/20 Unknown Losartan [Cozaar] 100 mg PO QDAY 10/22/20 10/22/20 Unknown Previous Rx's Medication Instructions Recorded Last Taken Type Albuterol Mdi (or & Nicu Only) 2 puff IH QID PRN #8.5 gram 04/25/19 Unknown Rx [ProAir HFA Inhaler] levoFLOXacin [Levaquin] 750 mg PO QDAY 5 Days #5 tablet 10/22/20 Unknown Rx traMADoL [Ultram 50 MG tab] 50 mg PO Q6HR PRN #12 tablet 10/22/20 Unknown Rx Allergies Allergy/AdvReac Type Severity Reaction Status Date / Time iodine Allergy Swelling Verified 10/24/20 16:42 sulfamethoxazole Allergy Rash Verified 10/24/20 16:42 [From Bactrim] trimethoprim [From Bactrim] Allergy Rash Verified 10/24/20 16:42 metformin AdvReac Nausea Verified 10/24/20 16:42 seafood Allergy Rash Uncoded 02/16/18 13:38 ED Review of Systems ROS: Stated complaint: DIZZY, ABD PAIN, LOWER PAIN Other details as noted in HPI Constitutional: denies: chills, fever Eyes: denies: eye pain, eye discharge, vision change ENT: denies: ear pain, throat pain Respiratory: denies: cough, shortness of breath, wheezing Cardiovascular: denies: chest pain, palpitations Endocrine: no symptoms reported Gastrointestinal: as per HPI, abdominal pain, nausea. denies: vomiting, diarrhea Genitourinary: denies: urgency, dysuria, discharge Musculoskeletal: as per HPI, back pain. denies: joint swelling, arthralgia Skin: denies: rash, lesions Neurological: denies: headache, weakness, paresthesias Psychiatric: denies: anxiety, depression Hematological/Lymphatic: denies: easy bleeding, easy bruising ED Past Medical Hx - Past Medical History Previous Medical History?: Yes Hx Hypertension: Yes Hx Heart Attack/AMI: No Hx Diabetes: Yes Hx Liver Disease: No Hx Renal Disease: Yes Hx Seizures: No Hx Psychiatric Treatment: Yes (anxiety depression) Hx Asthma: Yes (lasty inhaler use 03/2020) Hx COPD: Yes Hx HIV: Yes Additional medical history: HIGH CHOLESTEROL - Surgical History Past Surgical History?: Yes Hx Pacemaker: No Hx Internal Defibrillator: No Hx Cholecystectomy: Yes Additional Surgical History: d&c x1, insulin pump placement, TOTAL HYSTERECTOMY, boil removal to R inner thigh - Family History Family history: no significant - Social History Smoking Status: Current Every Day Smoker Substance Use Type: None - Medications Home Medications: Home Medications Medication Instructions Recorded Confirmed Last Taken Type Abacavir/Dolutegravir/Lamivudi 1 each PO DAILY 07/10/15 08/11/20 09/08/17 History [Triumeq 600-50-300 mg Tablet] Albuterol Mdi (or & Nicu Only) 2 puff IH QID PRN #8.5 gram 04/25/19 08/11/20 Unknown Rx [ProAir HFA Inhaler] Doxepin 25 10/22/20 Unknown History Gabapentin [Neurontin] 800 mg PO 10/22/20 Unknown History Insulin Lispro-Aabc [Lyumjev 10/22/20 Unknown History Kwikpen U-100] Lispro Insulin 1000units 10/22/20 Unknown History Losartan [Cozaar] 100 mg PO QDAY 10/22/20 10/22/20 Unknown History levoFLOXacin [Levaquin] 750 mg PO QDAY 5 Days #5 tablet 10/22/20 Unknown Rx traMADoL [Ultram 50 MG tab] 50 mg PO Q6HR PRN #12 tablet 10/22/20 Unknown Rx ED Physical Exam - General Limitations: No Limitations General appearance: alert, in no apparent distress - Head Head exam: Present: atraumatic, normocephalic - Eye Eye exam: Present: normal appearance - ENT ENT exam: Present: mucous membranes moist - Neck Neck exam: Present: normal inspection - Respiratory Respiratory exam: Present: normal lung sounds bilaterally. Absent: respiratory distress - Cardiovascular Cardiovascular Exam: Present: regular rate, normal rhythm. Absent: systolic murmur, diastolic murmur, rubs, gallop - GI/Abdominal GI/Abdominal exam: Present: soft, tenderness (Bilateral lower quadrant tenderness to palpation. Bilateral flank tenderness to palpation), normal bowel sounds - Extremities Exam Extremities exam: Present: normal inspection - Back Exam Back exam: Present: normal inspection, CVA tenderness (R), CVA tenderness (L) - Neurological Exam Neurological exam: Present: alert, oriented X3 - Psychiatric Psychiatric exam: Present: normal affect, normal mood - Skin Skin exam: Present: warm, dry, intact, normal color. Absent: rash ED Course Vital Signs 10/24/20 10/25/20 10/25/20 16:44 00:16 01:01 Temperature 99.5 F Pulse Rate 100 H 92 H Respiratory 18 11 L Rate Blood Pressure 179/82 Blood Pressure 153/83 [Right] O2 Sat by Pulse 100 99 97 Oximetry 10/25/20 10/25/20 10/25/20 02:11 03:01 04:01 Temperature Pulse Rate 98 H 101 H 96 H Respiratory 18 21 16 Rate Blood Pressure 164/77 154/81 Blood Pressure [Right] O2 Sat by Pulse 98 97 Oximetry 10/25/20 05:01 Temperature Pulse Rate 90 Respiratory 17 Rate Blood Pressure 150/71 Blood Pressure [Right] O2 Sat by Pulse Oximetry - Reevaluation(s) Reevaluation #1: Patient claims severe pain. Patient will be given Zofran and Dilaudid. Patient will have a CT scan. Patient agrees with plan of care. 10/25/20 00:15 Reevaluation #2: Patient still complaining of severe pain. Patient will be given another dose of Dilaudid. 10/25/20 02:01 Reevaluation #3: Patient has been given multiple doses of Dilaudid. Patient is still having pain. I discussed all results with patient. I discussed plan of care with patient. Patient agrees with plan of care and admission. Patient to be admitted to the hospitalist service. 10/25/20 02:32 - Consultations Consultation #1: Hospitalist consulted for admission. Hospitalist to admit patient. 10/25/20 02:32 ED Medical Decision Making - Lab Data Result diagrams: 10/24/20 18:19 10/24/20 18:19 - Radiology Data Radiology results: report reviewed Both CT report reviewed. CT scan of the head shows no acute findings. CT scan of the abdomen shows no acute findings. - Medical Decision Making Patient is a 40-year-old female who presents emergency room for bilateral lower quadrant abdominal pain, bilateral flank pain and bilateral back pain. Patient was evaluated here on Thursday and discharged home with treatment for UTI. Patient symptoms worsen. Patient had a CT scan done in the ER and it was negative for acute finding. Patient had labs done which were essentially unremarkable except for renal failure and dehydration and a UTI. Patient clinically is consistent with pyelonephritis. Patient will be admitted to the hospital service for IV antibiotics and for failure of outpatient treatment. Patient required multiple doses of pain medications while in the ER. Patient given IV fluids and IV antibiotics in the ER. Patient admitted to the hospital service for further evaluation treatment. Critical care time documented due to the multiple reassessments, prolonged time at the bedside, interpretation of diagnostics and labs. - Differential Diagnosis Abdominal pain, failed outpatient treatment, pyelonephritis, UTI Critical Care Time: Yes Critical care time in (mins) excluding proc time.: 35 Critical care attestation.: If time is entered above; I have spent that time in minutes in the direct care of this critically ill patient, excluding procedure time. Critical Care Time: 35 minutes ED Disposition Clinical Impression: Dehydration, Pyelonephritis, Hyperglycemia, Dizziness Renal failure Qualifiers: Renal failure chronicity: acute Acute renal failure type: unspecified Qualified Code(s): N17.9 - Acute kidney failure, unspecified Abdominal pain Qualifiers: Abdominal location: lower abdomen, unspecified Qualified Code(s): R10.30 - Lower abdominal pain, unspecified UTI (urinary tract infection) Qualifiers: Urinary tract infection type: acute cystitis Hematuria presence: with hematuria Qualified Code(s): N30.01 - Acute cystitis with hematuria Syncope Qualifiers: Syncope type: unspecified Qualified Code(s): R55 - Syncope and collapse Disposition: 09 OP ADMIT IP TO THIS HOSP Is pt being admited?: Yes Does the pt Need Aspirin: No Condition: Critical Time of Disposition: 02:37
[2020-10-25] MEDS ORDERED: cefTRIAXone/NS 2 GM/100 ML 2 GM/100 ML BAG IV ONE (02:28)
[2020-10-25] MEDS ORDERED: diphenhydrAMINE 50 MG/ML VIAL IV ONE (02:46)
[2020-10-25] MEDS ORDERED: DEXTROSE 50% IN WATER (25GM) 50 ML SYRINGE IV PRN ×2 (02:54→03:01)
[2020-10-25] MEDS ORDERED: ACETAMINOPHEN 325 MG TAB PO PRN (02:54)
[2020-10-25] MEDS ORDERED: MAGNESIUM HYDROXIDE (MOM) ORAL LIQD UDC PO PRN (03:01)
[2020-10-25] MEDS ORDERED: HYDROmorphone 1 MG/1 ML INJ IV PRN (03:01)
--- NOTE | 2020-10-25 03:11 | History and Physical Report ---
History of Present Illness Date of examination: 10/25/20 Date of admission: 10/25/2020 Chief complaint: Abdominal pain Back pain Bilateral flank pain History of present illness: 40-year-old female with significant past medical history of hypertension, diabetes mellitus, asthma, HIV positive and hyperlipidemia presents to the emergency room today complaining of bilateral lower back pain, bilateral flank pain, lower abdominal pain, dizziness. Symptoms has been ongoing for about 1 to 2 weeks and progressively getting worse. Patient was seen by her primary care physician less than a week ago and was sent here for further evaluation during which she was given some antibiotics for possible cystitis. She denies any fever or chills, denies any headache but has had some dizziness with a syncopal episode at work today. She had a brief loss of consciousness but denies any head trauma and denies any neck pain. She has had some nausea but no vomiting or diarrhea. Patient denies any sick contacts and no recent travel. Denies any contact with anyone with COVID-19. Work-up in the emergency room today reveals stable elevated BUN and creatinine of 26 and 1.9. Urinalysis was consistent with a UTI. CT scan of the head shows no acute findings. CT of the abdomen and pelvis is still being awaited. Patient admitted with UTI with possible accompanying pyelonephritis. Past History Past Medical History: diabetes, hypertension, hyperlipidemia, other (HIV positiveundetectable viral load, anxiety and depression, asthma, chronic kidney disease) Past Surgical History: cholecystectomy, Other ( d&c x1, insulin pump placement, TOTAL HYSTERECTOMY, boil removal to R inner thigh) Social history: smoking (Current daily smoker) Family history: no significant family history Medications and Allergies Allergies Allergy/AdvReac Type Severity Reaction Status Date / Time iodine Allergy Swelling Verified 10/24/20 16:42 sulfamethoxazole Allergy Rash Verified 10/24/20 16:42 [From Bactrim] trimethoprim [From Bactrim] Allergy Rash Verified 10/24/20 16:42 metformin AdvReac Nausea Verified 10/24/20 16:42 seafood Allergy Rash Uncoded 02/16/18 13:38 Home Medications Medication Instructions Recorded Confirmed Last Taken Type Abacavir/Dolutegravir/Lamivudi 1 each PO DAILY 07/10/15 08/11/20 09/08/17 History [Triumeq 600-50-300 mg Tablet] Albuterol Mdi (or & Nicu Only) 2 puff IH QID PRN #8.5 gram 04/25/19 08/11/20 Unknown Rx [ProAir HFA Inhaler] Doxepin 25 10/22/20 Unknown History Gabapentin [Neurontin] 800 mg PO 10/22/20 Unknown History Insulin Lispro-Aabc [Lyumjev 10/22/20 Unknown History Kwikpen U-100] Lispro Insulin 1000units 10/22/20 Unknown History Losartan [Cozaar] 100 mg PO QDAY 10/22/20 10/22/20 Unknown History levoFLOXacin [Levaquin] 750 mg PO QDAY 5 Days #5 tablet 10/22/20 Unknown Rx traMADoL [Ultram 50 MG tab] 50 mg PO Q6HR PRN #12 tablet 10/22/20 Unknown Rx Review of Systems Constitutional: fever, chills, no weakness Ears, nose, mouth and throat: no nasal congestion, no sore throat Cardiovascular: no chest pain, no palpitations Respiratory: no cough, no shortness of breath Gastrointestinal: abdominal pain, nausea, no vomiting, no diarrhea Genitourinary Female: flank pain, dysuria, no pelvic pain, no hematuria Musculoskeletal: low back pain, no neck pain Integumentary: no rash, no pruritis Neurological: no headaches, no confusion Psychiatric: no anxiety, no depression Endocrine: no polyphagia, no polydipsia, no polyuria, no nocturia Exam - Constitutional Vitals: Temp Pulse Resp BP Pulse Ox 99.5 F 101 H 21 164/77 97 10/24/20 16:44 10/25/20 03:01 10/25/20 03:01 10/25/20 03:01 10/25/20 03:01 General appearance: Present: no acute distress, well-nourished, obese - EENT Eyes: Present: PERRL, EOM intact. Absent: scleral icterus ENT: hearing intact, clear oral mucosa, dentition normal - Neck Neck: Present: supple, normal ROM - Respiratory Respiratory effort: normal Respiratory: bilateral: CTA - Cardiovascular Rhythm: regular Heart Sounds: Present: S1 & S2. Absent: gallop, systolic murmur, diastolic murmur, rub, click - Extremities Extremities: no ischemia, pulses intact, pulses symmetrical, No edema, normal temperature, Full ROM Peripheral Pulses: within normal limits - Abdominal General gastrointestinal: Present: soft, tender (Bilateral flank tenderness), non-distended, normal bowel sounds. Absent: mass - Integumentary Integumentary: Present: clear, warm, dry. Absent: rash - Musculoskeletal Musculoskeletal: strength equal bilaterally - Psychiatric Psychiatric: appropriate mood/affect, intact judgment & insight, memory intact, cooperative - Neurologic Neurologic: CNII-XII intact, no focal deficits, moves all extremities Results - Labs CBC & Chem 7: 10/24/20 18:19 10/24/20 18:19 Labs: Abnormal lab results 10/24/20 10/24/20 10/24/20 Range/Units 18:19 18:19 Unknown RBC 3.49 L (3.65-5.03) M/mm3 MCV 99 H (79-97) fl MCH 33 H (28-32) pg Lymph % (Auto) 39.5 H (13.4-35.0) % BUN 26 H (7-17) mg/dL Creatinine 1.9 H (0.6-1.2) mg/dL Glucose 314 H (65-100) mg/dL Albumin 3.5 L (3.9-5) g/dL Urine WBC (Auto) 17.0 H (0.0-6.0) /HPF U Epithel Cells (Auto) 30.0 H (0-13.0) /HPF Assessment and Plan - Patient Problems (1) Pyelonephritis Current Visit: Yes Status: Acute Plan to address problem: Patient placed on empiric IV antibiotics and IV fluid. (2) Dehydration Current Visit: Yes Status: Acute Plan to address problem: Patient placed on IV fluid normal saline. Will monitor BUN and creatinine. (3) Diabetes mellitus type 2 in obese Current Visit: No Status: Acute Plan to address problem: Will monitor Accu-Cheks. Patient placed on sliding scale insulin. (4) Hypertension Current Visit: No Status: Acute Qualifiers: Hypertension type: essential hypertension Plan to address problem: We will resume routine home medications and monitor vital signs closely. (5) HIV (human immunodeficiency virus infection) Current Visit: No Status: Chronic Qualifiers: HIV symptom status: unspecified Qualified Code(s): B20 - Human immunodeficiency virus [HIV] disease Plan to address problem: Patient diagnosed in 2003. Follows up with Dr. Pedro Ponce. Viral load undetectable in August 2020. We will resume routine home medications. (6) Hyperlipidemia Current Visit: No Status: Chronic Plan to address problem: We will continue patient on her routine home medications and monitor lipid profile. (7) DVT prophylaxis Current Visit: No Status: Acute Plan to address problem: Patient placed on subcutaneous heparin (8) Full code status Current Visit: No Status: Acute Plan to address problem: Patient is full code
[2020-10-25] MEDS: SODIUM CHLORIDE 0.9% 1000 ML 1,000 ML IV SCH ×2 (06:25→17:27)
[2020-10-25] MEDS: HEPARIN 5,000 UNIT/1 ML VIAL SUB-Q SCH ×3 (06:25→22:29)
[2020-10-25] MEDS ORDERED: traMADol 50 MG TAB PO PRN (06:33)
[2020-10-25] MEDS ORDERED: ALBUTEROL 8.5 GM MDI INHALATION IH PRN (06:33)
[2020-10-25] MEDS: HYDROmorphone 1 MG/1 ML INJ IV PRN ×5 (06:38→20:48)
[2020-10-25] MEDS ORDERED: ALBUTEROL 2.5 MG/3 ML NEBU IH PRN (07:20)
[2020-10-25] MEDS: diphenhydrAMINE 25 MG CAP PO PRN ×2 (08:03→13:40)
[2020-10-25] MEDS: INSULIN REGULAR, HUMAN 100 UNITS/1 ML SUB-Q SCH ×4 (08:34→22:32)
[2020-10-25] MEDS ORDERED: [UNRECOGNIZED DRUG - OTHER] PO SCH (10:00)
[2020-10-25] MEDS ORDERED: NON-FORMULARY EACH (Losartan [Cozaar] 100 MG Tablet) PO SCH (10:00)
[2020-10-25] MEDS ORDERED: ABACAVIR PO SCH (10:00)
[2020-10-25] MEDS ORDERED: LAMIVUDI PO SCH (10:00)
[2020-10-25] MEDS ORDERED: DOLUTEGRAVIR PO SCH (10:00)
--- NOTE | 2020-10-25 10:13 | Progress Note ---
Assessment and Plan Assessment and plan: (1) Pyelonephritis Current Visit: Yes Status: Acute Plan to address problem: Patient placed on empiric IV antibiotics and IV fluid. (2) Dehydration Current Visit: Yes Status: Acute Patient placed on IV fluid normal saline. Will monitor BUN and creatinine. (3) Diabetes mellitus type 2 in obese Current Visit: No Status: Acute Will monitor Accu-Cheks. Patient placed on sliding scale insulin. (4) Hypertension Current Visit: No Status: Acute We will resume routine home medications and monitor vital signs closely. (5) HIV (human immunodeficiency virus infection) Current Visit: No Status: Chronic Patient diagnosed in 2003. Follows up with Dr. Pedro Ponce. Viral load undetectable in August 2020. Patient is currently on antiretroviral medications (6) Hyperlipidemia Current Visit: No Status: Chronic We will continue patient on her routine home medications and monitor lipid profile. (7) DVT prophylaxis Current Visit: No Status: Acute Patient placed on subcutaneous heparin (8) Full code status Current Visit: No Status: Acute Patient is full code We will closely monitor the patient and adjust the management as needed Plan of care reviewed with the patient and her nurse Advance care plan 35 minutes History Interval history: I have seen and examined the patient this morning Patient's chart and medications reviewed Patient was admitted with abdominal pain and bilateral flank pain Admitted with pyelonephritis on empiric antibiotics Vital signs noted Hospitalist Physical - Constitutional Vitals: Temp Pulse Resp BP Pulse Ox 99.5 F 90 17 150/71 97 10/24/20 16:44 10/25/20 05:01 10/25/20 05:01 10/25/20 05:01 10/25/20 03:01 General appearance: Present: no acute distress, well-nourished, obese - EENT Eyes: Present: PERRL, EOM intact - Neck Neck: Present: supple, normal ROM - Respiratory Respiratory effort: normal Respiratory: bilateral: diminished, negative: rales, rhonchi, wheezing - Cardiovascular Rhythm: regular Heart Sounds: Present: S1 & S2 - Extremities Extremities: no ischemia, No edema - Abdominal General gastrointestinal: soft, non-tender, non-distended, normal bowel sounds - Integumentary Integumentary: Present: clear, warm - Psychiatric Psychiatric: appropriate mood/affect, cooperative - Neurologic Neurologic: CNII-XII intact, moves all extremities Results - Labs CBC & Chem 7: 10/24/20 18:19 10/24/20 18:19 Labs: Laboratory Last Values WBC 7.2 K/mm3 (4.5-11.0) 10/24/20 18:19 RBC 3.49 M/mm3 (3.65-5.03) L 10/24/20 18:19 Hgb 11.6 gm/dl (10.1-14.3) 10/24/20 18:19 Hct 34.4 % (30.3-42.9) 10/24/20 18:19 MCV 99 fl (79-97) H 10/24/20 18:19 MCH 33 pg (28-32) H 10/24/20 18:19 MCHC 34 % (30-34) 10/24/20 18:19 RDW 15.0 % (13.2-15.2) 10/24/20 18:19 Plt Count 153 K/mm3 (140-440) 10/24/20 18:19 Lymph % (Auto) 39.5 % (13.4-35.0) H 10/24/20 18:19 [place] % (Auto) 6.4 % (0.0-7.3) 10/24/20 18:19 Eos % (Auto) 2.4 % (0.0-4.3) 10/24/20 18:19 Baso % (Auto) 0.1 % (0.0-1.8) 10/24/20 18:19 Lymph # (Auto) 2.8 K/mm3 (1.2-5.4) 10/24/20 18:19 [place] # (Auto) 0.5 K/mm3 (0.0-0.8) 10/24/20 18:19 Eos # (Auto) 0.2 K/mm3 (0.0-0.4) 10/24/20 18:19 Baso # (Auto) 0.0 K/mm3 (0.0-0.1) 10/24/20 18:19 Seg Neutrophils % 51.6 % (40.0-70.0) 10/24/20 18:19 Seg Neutrophils # 3.7 K/mm3 (1.8-7.7) 10/24/20 18:19 Sodium 138 mmol/L (137-145) 10/24/20 18:19 Potassium 4.7 mmol/L (3.6-5.0) 10/24/20 18:19 Chloride 103.0 mmol/L (98-107) 10/24/20 18:19 Carbon Dioxide 23 mmol/L (22-30) 10/24/20 18:19 Anion Gap 17 mmol/L 10/24/20 18:19 BUN 26 mg/dL (7-17) H 10/24/20 18:19 Creatinine 1.9 mg/dL (0.6-1.2) H 10/24/20 18:19 Estimated GFR 29 ml/min 10/24/20 18:19 BUN/Creatinine Ratio 14 % 10/24/20 18:19 Glucose 314 mg/dL (65-100) H 10/24/20 18:19 POC Glucose 262 mg/dL (70-105) H 10/25/20 07:54 Calcium 9.0 mg/dL (8.4-10.2) 10/24/20 18:19 Magnesium 2.00 mg/dL (1.7-2.3) 10/24/20 18:19 Total Bilirubin 0.20 mg/dL (0.1-1.2) 10/24/20 18:19 AST 21 units/L (5-40) 10/24/20 18:19 ALT 33 units/L (7-56) 10/24/20 18:19 Alkaline Phosphatase 97 units/L (35-129) 10/24/20 18:19 Total Protein 7.2 g/dL (6.3-8.2) 10/24/20 18:19 Albumin 3.5 g/dL (3.9-5) L 10/24/20 18:19 Albumin/Globulin Ratio 0.9 % 10/24/20 18:19 Lipase 25 units/L (13-60) 10/24/20 18:19 HCG, Qual Negative (Negative) 10/24/20 18:19 Urine Color Smiley (Yellow) 10/24/20 Unknown Urine Turbidity Cloudy (Clear) 10/24/20 Unknown Urine pH 5.0 (5.0-7.0) 10/24/20 Unknown Ur Specific [place] 1.025 (1.003-1.030) 10/24/20 Unknown Urine Protein >500 mg/dL (Negative) 10/24/20 Unknown Urine Glucose (UA) 150 mg/dL (Negative) 10/24/20 Unknown Urine Ketones Neg mg/dL (Negative) 10/24/20 Unknown Urine Blood Mod (Negative) 10/24/20 Unknown Urine Nitrite Neg (Negative) 10/24/20 Unknown Urine Bilirubin Neg (Negative) 10/24/20 Unknown Urine Urobilinogen < 2.0 mg/dL (<2.0) 10/24/20 Unknown Ur Leukocyte Esterase Tr (Negative) 10/24/20 Unknown Urine WBC (Auto) 17.0 /HPF (0.0-6.0) H 10/24/20 Unknown Urine RBC (Auto) 6.0 /HPF (0.0-6.0) 10/24/20 Unknown U Epithel Cells (Auto) 30.0 /HPF (0-13.0) H 10/24/20 Unknown Urine Bacteria (Auto) 2+ /HPF (Negative) 10/24/20 Unknown Urine Mucus Few /HPF 10/24/20 Unknown Perry/IV: Voiding Method Toilet Active Medications - Current Medications Current Medications: Generic Name Dose Route Start Last Admin Trade Name Freq PRN Reason Stop Dose Admin Abacavir Sulfate 600 mg 10/25/20 10:00 Abacavir 300 Mg Tab PO DAILY GRIS Acetaminophen 650 mg 10/25/20 02:54 Acetaminophen 325 Mg Tab PO Q4H PRN Pain MILD(1-3)/Fever >100.5/CHAVARRIA Albuterol 2.5 mg 10/25/20 07:20 Albuterol 2.5 Mg/3 Ml Nebu IH Q6HRT PRN Shortness Of Breath Dextrose 50 ml 10/25/20 02:54 Dextrose 50% In Water (25gm) 50 Ml Syringe IV Q30MIN PRN Hypoglycemia Protocol Diphenhydramine HCl 25 mg 10/25/20 07:35 10/25/20 08:03 Diphenhydramine 25 Mg Cap PO 25 mg Q6H PRN Administration Itching Heparin Sodium (Porcine) 5,000 unit 10/25/20 06:00 10/25/20 06:25 Heparin 5,000 Unit/1 Ml Vial SUB-Q 5,000 unit Q8HR GRIS Administration Hydromorphone HCl 1 mg 10/25/20 03:01 10/25/20 06:38 Hydromorphone 1 Mg/1 Ml Inj IV 1 mg Q3H PRN Administration Pain , Severe (7-10) Hydromorphone HCl 0.5 mg 10/25/20 03:01 Hydromorphone 1 Mg/1 Ml Inj IV Q3H PRN Pain, Moderate (4-6) Sodium Chloride 1,000 mls @ 125 mls/hr 10/25/20 03:15 10/25/20 06:25 Nacl 0.9% 1000 Ml IV 125 mls/hr DIRECT GRIS Administration Ceftriaxone Sodium 2 gm in 100 mls @ 200 mls/hr 10/25/20 22:00 Rocephin/Ns 2 Gm/100 Ml IV Q24H GRIS Insulin Human Regular 0 units 10/25/20 07:30 10/25/20 08:34 Insulin Regular, Human 100 Units/1 Ml SUB-Q 4 units ACHS GRIS Administration Protocol Lamivudine 300 mg 10/25/20 10:00 Lamivudine 150 Mg Tab PO DAILY GRIS Losartan Potassium 100 mg 10/25/20 10:00 Losartan 50 Mg Tab PO QDAY GRIS Magnesium Hydroxide 30 ml 10/25/20 03:01 Magnesium Hydroxide (Mom) Oral Liqd Udc PO Q4H PRN Constipation Ondansetron HCl 4 mg 10/25/20 02:54 Ondansetron 4 Mg/2 Ml Inj IV Q8H PRN Nausea And Vomiting Sodium Chloride 10 ml 10/25/20 10:00 Sodium Chloride 0.9% 10 Ml Flush Syringe IV BID GRIS Sodium Chloride 10 ml 10/25/20 02:54 Sodium Chloride 0.9% 10 Ml Flush Syringe IV PRN PRN LINE FLUSH Tramadol HCl 50 mg 10/25/20 06:33 Tramadol 50 Mg Tab PO Q6HR PRN break thru pain Nutrition/Malnutrition Assess - Dietary Evaluation Nutrition/Malnutrition Findings: Nutrition Notes Start: 10/25/20 10:01 Freq: Status: Active Protocol: Document 10/25/20 10:01 ROLA (Rec: 10/25/20 10:04 ROLA [id number]) Nutrition Notes Need for Assessment 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 Pt also screened for skin risk (Lux score unavailable). Burn Absent Trauma Absent Minimum of two criteria No Is patient on ventilator? No Is Patient Ambulatory and/or Out of Bed No REE-([facility]-confined to bed) 2117.100 Kcal/Kg value to use for calculation 15 Approximate Energy Requirements Using 1653 kcal/Kg Calculation Used for Recommendations Kcal/kg Additional Notes Pro needs 0.8-1g/kg adjBW: 66- 82g/day Fluid needs 1ml/kcal Nutrition Intervention Follow-Up By: 10/30/20 Additional Comments F/U: intakes
[2020-10-25] MEDS: DOLUTEGRAVIR 50 MG TAB PO SCH ×2 (10:25→13:03)
[2020-10-25] MEDS: ABACAVIR 300 MG TAB PO SCH ×2 (10:25→13:03)
[2020-10-25] MEDS: LOSARTAN 50 MG TAB PO SCH (10:25)
[2020-10-25] MEDS ORDERED: DOLUTEGRAVIR 50 MG, ABACAVIR 600 MG, lamiVUDine 300 MG PO SCH (12:00)
[2020-10-25] MEDS: ABACAVIR PO SCH (12:35)
[2020-10-25] MEDS: DOLUTEGRAVIR PO SCH (12:35)
[2020-10-25] MEDS: LAMIVUDINE PO SCH (12:35)
--- NOTE | 2020-10-25 19:38 | Progress Note ---
Assessment and Plan Assessment and plan: (1) Pyelonephritis Current Visit: Yes Status: Acute Plan to address problem: Continue empiric IV antibiotics and IV fluid. Supportive care, follow cultures and adjust as needed (2) Dehydration Current Visit: Yes Status: Acute Patient placed on IV fluid normal saline. Slightly improved (3) Diabetes mellitus type 2 in obese Current Visit: No Status: Acute Accu-Chek sliding scale coverage ADA diet Long-acting insulin as needed. (4) Hypertension moderate control Current Visit: No Status: Acute Continue current antihypertensives As needed medications (5) HIV (human immunodeficiency virus infection) Current Visit: No Status: Chronic Patient diagnosed in 2003. Follows up with Dr. Pedro Ponce. Viral load undetectable in August 2020. Patient is currently on antiretroviral medications (6) Hyperlipidemia Current Visit: No Status: Chronic Continue statin (7) DVT prophylaxis Current Visit: No Status: Acute Patient placed on subcutaneous heparin (8) Full code status Current Visit: No Status: Acute Patient is full code We will closely monitor the patient and adjust the management as needed Plan of care reviewed with the patient and her nurse 10/26/2020; pyelonephritis Continue empiric antibiotics, follow culture sensitivities Adjust antibiotics as needed Possible discharge in 1 to 2 days if stable History Interval history: I have seen and examined the patient at the bedside Patient's chart and medications reviewed Patient complains of flank pain Awaiting urine cultures Vital signs reviewed Hospitalist Physical - Constitutional Vitals: Temp Pulse Resp BP Pulse Ox 98.7 F 94 H 16 103/58 97 10/25/20 11:36 10/25/20 11:36 10/25/20 11:36 10/25/20 11:36 10/25/20 11:36 General appearance: Present: no acute distress, well-nourished, obese (Morbidly obese) - EENT Eyes: Present: PERRL, EOM intact - Neck Neck: Present: supple, normal ROM - Respiratory Respiratory effort: normal Respiratory: bilateral: diminished, negative: rales, rhonchi, wheezing - Cardiovascular Rhythm: regular Heart Sounds: Present: S1 & S2 - Extremities Extremities: no ischemia, No edema - Abdominal General gastrointestinal: soft, non-tender, non-distended, normal bowel sounds - Integumentary Integumentary: Present: clear, warm - Psychiatric Psychiatric: appropriate mood/affect, cooperative - Neurologic Neurologic: CNII-XII intact, moves all extremities Results - Labs CBC & Chem 7: 10/26/20 04:52 10/26/20 04:52 Labs: Laboratory Last Values WBC 7.2 K/mm3 (4.5-11.0) 10/24/20 18:19 RBC 3.49 M/mm3 (3.65-5.03) L 10/24/20 18:19 Hgb 11.6 gm/dl (10.1-14.3) 10/24/20 18:19 Hct 34.4 % (30.3-42.9) 10/24/20 18:19 MCV 99 fl (79-97) H 10/24/20 18:19 MCH 33 pg (28-32) H 10/24/20 18:19 MCHC 34 % (30-34) 10/24/20 18:19 RDW 15.0 % (13.2-15.2) 10/24/20 18:19 Plt Count 153 K/mm3 (140-440) 10/24/20 18:19 Lymph % (Auto) 39.5 % (13.4-35.0) H 10/24/20 18:19 [place] % (Auto) 6.4 % (0.0-7.3) 10/24/20 18:19 Eos % (Auto) 2.4 % (0.0-4.3) 10/24/20 18:19 Baso % (Auto) 0.1 % (0.0-1.8) 10/24/20 18:19 Lymph # (Auto) 2.8 K/mm3 (1.2-5.4) 10/24/20 18:19 [place] # (Auto) 0.5 K/mm3 (0.0-0.8) 10/24/20 18:19 Eos # (Auto) 0.2 K/mm3 (0.0-0.4) 10/24/20 18:19 Baso # (Auto) 0.0 K/mm3 (0.0-0.1) 10/24/20 18:19 Seg Neutrophils % 51.6 % (40.0-70.0) 10/24/20 18:19 Seg Neutrophils # 3.7 K/mm3 (1.8-7.7) 10/24/20 18:19 Sodium 138 mmol/L (137-145) 10/24/20 18:19 Potassium 4.7 mmol/L (3.6-5.0) 10/24/20 18:19 Chloride 103.0 mmol/L (98-107) 10/24/20 18:19 Carbon Dioxide 23 mmol/L (22-30) 10/24/20 18:19 Anion Gap 17 mmol/L 10/24/20 18:19 BUN 26 mg/dL (7-17) H 10/24/20 18:19 Creatinine 1.9 mg/dL (0.6-1.2) H 10/24/20 18:19 Estimated GFR 29 ml/min 10/24/20 18:19 BUN/Creatinine Ratio 14 % 10/24/20 18:19 Glucose 314 mg/dL (65-100) H 10/24/20 18:19 POC Glucose 255 mg/dL (70-105) H 10/25/20 16:16 Calcium 9.0 mg/dL (8.4-10.2) 10/24/20 18:19 Magnesium 2.00 mg/dL (1.7-2.3) 10/24/20 18:19 Total Bilirubin 0.20 mg/dL (0.1-1.2) 10/24/20 18:19 AST 21 units/L (5-40) 10/24/20 18:19 ALT 33 units/L (7-56) 10/24/20 18:19 Alkaline Phosphatase 97 units/L (35-129) 10/24/20 18:19 Total Protein 7.2 g/dL (6.3-8.2) 10/24/20 18:19 Albumin 3.5 g/dL (3.9-5) L 10/24/20 18:19 Albumin/Globulin Ratio 0.9 % 10/24/20 18:19 Lipase 25 units/L (13-60) 10/24/20 18:19 HCG, Qual Negative (Negative) 10/24/20 18:19 Urine Color Smiley (Yellow) 10/24/20 Unknown Urine Turbidity Cloudy (Clear) 10/24/20 Unknown Urine pH 5.0 (5.0-7.0) 10/24/20 Unknown Ur Specific [employer] 1.025 (1.003-1.030) 10/24/20 Unknown Urine Protein >500 mg/dL (Negative) 10/24/20 Unknown Urine Glucose (UA) 150 mg/dL (Negative) 10/24/20 Unknown Urine Ketones Neg mg/dL (Negative) 10/24/20 Unknown Urine Blood Mod (Negative) 10/24/20 Unknown Urine Nitrite Neg (Negative) 10/24/20 Unknown Urine Bilirubin Neg (Negative) 10/24/20 Unknown Urine Urobilinogen < 2.0 mg/dL (<2.0) 10/24/20 Unknown Ur Leukocyte Esterase Tr (Negative) 10/24/20 Unknown Urine WBC (Auto) 17.0 /HPF (0.0-6.0) H 10/24/20 Unknown Urine RBC (Auto) 6.0 /HPF (0.0-6.0) 10/24/20 Unknown U Epithel Cells (Auto) 30.0 /HPF (0-13.0) H 10/24/20 Unknown Urine Bacteria (Auto) 2+ /HPF (Negative) 10/24/20 Unknown Urine Mucus Few /HPF 10/24/20 Unknown Microbiology: Microbiology 10/24/20 Unknown Urine,Clean Catch Urine Culture - Preliminary Perry/IV: Voiding Method Toilet Active Medications - Current Medications Current Medications: Generic Name Dose Route Start Last Admin Trade Name Freq PRN Reason Stop Dose Admin Abacavir/Dolutegravir/Lamivudine 1 each 10/25/20 12:00 10/25/20 12:35 Abacavir/Dolutegravir/Lamivudine (Nf) Tab PO 1 each DAILY GRIS Administration Acetaminophen 650 mg 10/25/20 02:54 Acetaminophen 325 Mg Tab PO Q4H PRN Pain MILD(1-3)/Fever >100.5/CHAVARRIA Albuterol 2.5 mg 10/25/20 07:20 Albuterol 2.5 Mg/3 Ml Nebu IH Q6HRT PRN Shortness Of Breath Dextrose 50 ml 10/25/20 02:54 Dextrose 50% In Water (25gm) 50 Ml Syringe IV Q30MIN PRN Hypoglycemia Protocol Diphenhydramine HCl 25 mg 10/25/20 07:35 10/25/20 13:40 Diphenhydramine 25 Mg Cap PO 25 mg Q6H PRN Administration Itching Heparin Sodium (Porcine) 5,000 unit 10/25/20 06:00 10/25/20 13:26 Heparin 5,000 Unit/1 Ml Vial SUB-Q 5,000 unit Q8HR GRIS Administration Hydromorphone HCl 1 mg 10/25/20 03:01 10/25/20 17:19 Hydromorphone 1 Mg/1 Ml Inj IV 1 mg Q3H PRN Administration Pain , Severe (7-10) Hydromorphone HCl 0.5 mg 10/25/20 03:01 Hydromorphone 1 Mg/1 Ml Inj IV Q3H PRN Pain, Moderate (4-6) Sodium Chloride 1,000 mls @ 125 mls/hr 10/25/20 03:15 10/25/20 17:27 Nacl 0.9% 1000 Ml IV 125 mls/hr DIRECT GRIS Administration Ceftriaxone Sodium 2 gm in 100 mls @ 200 mls/hr 10/25/20 22:00 Rocephin/Ns 2 Gm/100 Ml IV Q24H GRIS Insulin Human Regular 0 units 10/25/20 07:30 10/25/20 17:20 Insulin Regular, Human 100 Units/1 Ml SUB-Q 4 units ACHS GRIS Administration Protocol Losartan Potassium 100 mg 10/25/20 10:00 10/25/20 10:25 Losartan 50 Mg Tab PO 100 mg QDAY GRIS Administration Magnesium Hydroxide 30 ml 10/25/20 03:01 Magnesium Hydroxide (Mom) Oral Liqd Udc PO Q4H PRN Constipation Ondansetron HCl 4 mg 10/25/20 02:54 Ondansetron 4 Mg/2 Ml Inj IV Q8H PRN Nausea And Vomiting Sodium Chloride 10 ml 10/25/20 10:00 10/25/20 10:26 Sodium Chloride 0.9% 10 Ml Flush Syringe IV 10 ml BID GRIS Administration Sodium Chloride 10 ml 10/25/20 02:54 Sodium Chloride 0.9% 10 Ml Flush Syringe IV PRN PRN LINE FLUSH Tramadol HCl 50 mg 10/25/20 06:33 Tramadol 50 Mg Tab PO Q6HR PRN break thru pain Nutrition/Malnutrition Assess - Dietary Evaluation Nutrition/Malnutrition Findings: Nutrition Notes Start: 10/25/20 10:01 Freq: Status: Active Protocol: Document 10/25/20 10:01 ROLA (Rec: 10/25/20 10:04 ROLA [id number]) Nutrition Notes Need for Assessment generated from: 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 Pt also screened for skin risk (Lux score unavailable). Burn Absent Trauma Absent Minimum of two criteria No Is patient on ventilator? No Is Patient Ambulatory and/or Out of Bed No REE-([place]confined to bed) 2117.100 Kcal/Kg value to use for calculation 15 Approximate Energy Requirements Using 1653 kcal/Kg Calculation Used for Recommendations Kcal/kg Additional Notes Pro needs 0.8-1g/kg adjBW: 66- 82g/day Fluid needs 1ml/kcal Nutrition Intervention Follow-Up By: 10/30/20 Additional Comments F/U: intakes
[2020-10-25] MEDS: cefTRIAXone/NS 2 GM/100 ML 2 GM/100 ML BAG IV SCH (22:28)
[2020-10-25] MEDS: ONDANSETRON 4 MG/2 ML INJ IV PRN (22:41)
[2020-10-26] MEDS: HYDROmorphone 1 MG/1 ML INJ IV PRN ×7 (01:00→22:14)
[2020-10-26] MEDS: diphenhydrAMINE 25 MG CAP PO PRN ×3 (01:01→15:26)
[2020-10-26] MEDS: SODIUM CHLORIDE 0.9% 1000 ML 1,000 ML IV SCH (03:06)
[2020-10-26 05:33] LABS: Calcium 9.1 mg/dL (8.4-10.2)
[2020-10-26 06:04] LABS: Basophils % (Auto) 0.2 % (0.0-1.8); Eosinophils # (Auto) 0.1 K/mm3 (0.0-0.4); Eosinophils % (Auto) 1.9 % (0.0-4.3); Hematocrit 30.4 % (30.3-42.9); Hemoglobin 10.3 gm/dl (10.1-14.3); Lymphocytes # (Auto) 2.5 K/mm3 (1.2-5.4); Lymphocytes % (Auto) 45.2 % (13.4-35.0); Mean Corpuscular HGB Conc 34 % (30-34); Mean Corpuscular Volume 99 fl (79-97); Monocytes # (Auto) 0.4 K/mm3 (0.0-0.8); Monocytes % (Auto) 6.9 % (0.0-7.3); Platelet Count 134 K/mm3 (140-440); Red Blood Count 3.07 M/mm3 (3.65-5.03); Red Cell Distribution Width 15.3 % (13.2-15.2)
[2020-10-26] MEDS: HEPARIN 5,000 UNIT/1 ML VIAL SUB-Q SCH ×3 (06:15→22:10)
[2020-10-26] MEDS: INSULIN REGULAR, HUMAN 100 UNITS/1 ML SUB-Q SCH ×4 (08:38→22:11)
[2020-10-26] MEDS: ONDANSETRON 4 MG/2 ML INJ IV PRN (08:38)
[2020-10-26] MEDS: LOSARTAN 50 MG TAB PO SCH (11:14)
[2020-10-26] MEDS: LAMIVUDINE PO SCH (12:46)
[2020-10-26] MEDS: DOLUTEGRAVIR PO SCH (12:46)
[2020-10-26] MEDS: ABACAVIR PO SCH (12:46)
[2020-10-26] MEDS: METOCLOPRAMIDE 10 MG/2 ML INJ IV SCH (15:26)
[2020-10-26] MEDS: cefTRIAXone/NS 2 GM/100 ML 2 GM/100 ML BAG IV SCH (22:10)
[2020-10-27] MEDS: HYDROmorphone 1 MG/1 ML INJ IV PRN ×7 (01:23→21:06)
[2020-10-27] MEDS: METOCLOPRAMIDE 10 MG/2 ML INJ IV SCH ×5 (01:24→19:51)
[2020-10-27] MEDS: HEPARIN 5,000 UNIT/1 ML VIAL SUB-Q SCH ×3 (05:05→21:06)
[2020-10-27] MEDS: INSULIN REGULAR, HUMAN 100 UNITS/1 ML SUB-Q SCH ×4 (07:30→21:26)
[2020-10-27] MEDS: LOSARTAN 50 MG TAB PO SCH (11:34)
[2020-10-27] MEDS: LAMIVUDINE PO SCH (11:36)
[2020-10-27] MEDS: ABACAVIR PO SCH (11:36)
[2020-10-27] MEDS: DOLUTEGRAVIR PO SCH (11:36)
[2020-10-27] MEDS: diphenhydrAMINE 50 MG/ML VIAL IV PRN ×2 (15:24→21:07)
[2020-10-27] MEDS: INSULIN NPH/REGULAR 70/30 INJ SUB-Q SCH (17:25)
[2020-10-27] MEDS: cefTRIAXone/NS 2 GM/100 ML 2 GM/100 ML BAG IV SCH (21:06)
[2020-10-28] MEDS: METOCLOPRAMIDE 10 MG/2 ML INJ IV SCH ×3 (00:14→13:13)
[2020-10-28] MEDS: HYDROmorphone 1 MG/1 ML INJ IV PRN ×4 (00:14→11:02)
[2020-10-28] MEDS: diphenhydrAMINE 50 MG/ML VIAL IV PRN ×2 (04:10→11:02)
[2020-10-28] MEDS: HEPARIN 5,000 UNIT/1 ML VIAL SUB-Q SCH ×2 (06:07→13:11)
[2020-10-28] MEDS: INSULIN NPH/REGULAR 70/30 INJ SUB-Q SCH (08:50)
[2020-10-28] MEDS: INSULIN REGULAR, HUMAN 100 UNITS/1 ML SUB-Q SCH ×2 (09:01→13:10)
--- NOTE | 2020-10-28 09:35 | Progress Note ---
Assessment and Plan Assessment and Plan Assessment and plan: (1) Pyelonephritis Current Visit: Yes Status: Acute Plan to address problem: Continue empiric IV antibiotics and IV fluid. Supportive care, follow cultures and adjust as needed (2) Dehydration Current Visit: Yes Status: Acute Patient placed on IV fluid normal saline. Slightly improved (3) Diabetes mellitus type 2 in obese Current Visit: No Status: Acute Adjust insulin dosage (4) Hypertension moderate control Current Visit: No Status: Acute Continue current antihypertensives As needed medications (5) HIV (human immunodeficiency virus infection) Current Visit: No Status: Chronic Patient diagnosed in 2003. Follows up with Dr. Pedro Ponce. Viral load undetectable in August 2020. Patient is currently on antiretroviral medications (6) Hyperlipidemia Current Visit: No Status: Chronic Continue statin (7) DVT prophylaxis Current Visit: No Status: Acute Patient placed on subcutaneous heparin (8) Full code status Current Visit: No Status: Acute Patient is full code We will closely monitor the patient and adjust the management as needed Plan of care reviewed with the patient and her nurse Subjective Date of service: 10/27/20 Principal diagnosis: Acute pyelonephritis Interval history: 40-year-old female with significant past medical history of hypertension, diabetes mellitus, asthma, HIV positive and hyperlipidemia presents to the emergency room today complaining of bilateral lower back pain, bilateral flank pain, lower abdominal pain, dizziness. Symptoms has been ongoing for about 1 to 2 weeks and progressively getting worse. Patient was seen by her primary care physician less than a week ago and was sent here for further evaluation during which she was given some antibiotics for possible cystitis. She denies any fever or chills, denies any headache but has had some dizziness with a syncopal episode at work today. She had a brief loss of consciousness but denies any head trauma and denies any neck pain. She has had some nausea but no vomiting or diarrhea. Patient denies any sick contacts and no recent travel. Denies any contact with anyone with COVID-19. Work-up in the emergency room today reveals stable elevated BUN and creatinine of 26 and 1.9. Urinalysis was consistent with a UTI. CT scan of the head shows no acute findings. CT of the abdomen and pelvis is still being awaited. Patient admitted with UTI with possible accompanying pyelonephritis. 10/26/2020; pyelonephritis Continue empiric antibiotics, follow culture sensitivities Adjust antibiotics as needed Possible discharge in 1 to 2 days if stable 10 27 2020 Right flank pain present Afebrile Objective - Constitutional Vitals: Vital Signs - 12hr 10/28/20 05:21 Temperature 98.2 F Pulse Rate 89 Respiratory 20 Rate Blood Pressure 145/63 O2 Sat by Pulse 98 Oximetry General appearance: Present: no acute distress, well-nourished - EENT Eyes: PERRL, EOM intact ENT: hearing intact, clear oral mucosa Ears: bilateral: normal - Neck Neck: supple, normal ROM - Respiratory Respiratory effort: normal Respiratory: bilateral: CTA - Breasts Breasts: normal - Cardiovascular Heart rate: 78 Rhythm: regular Heart Sounds: Present: S1 & S2. Absent: gallop, rub Extremities: pulses intact, No edema, normal color, Full ROM - Gastrointestinal General gastrointestinal: Present: soft, non-tender, non-distended, normal bowel sounds - Genitourinary Female genitourinary: normal - Integumentary Integumentary: clear, warm, dry - Musculoskeletal Musculoskeletal: 1, strength equal bilaterally - Neurologic Neurologic: moves all extremities - Psychiatric Psychiatric: memory intact, appropriate mood/affect, intact judgment & insight - Labs CBC & Chem 7: 10/26/20 04:52 10/26/20 04:52 Labs: Abnormal lab results 10/27/20 10/27/20 10/27/20 Range/Units 11:33 16:33 21:19 POC Glucose 239 H 284 H 219 H (70-105) mg/dL 10/28/20 Range/Units 07:34 POC Glucose 234 H (70-105) mg/dL
[2020-10-28] MEDS: DOLUTEGRAVIR PO SCH (10:59)
[2020-10-28] MEDS: ABACAVIR PO SCH (10:59)
[2020-10-28] MEDS: LAMIVUDINE PO SCH (10:59)
[2020-10-28] MEDS: LOSARTAN 50 MG TAB PO SCH (11:01)
[2020-10-28 11:03] VITALS: BP 190/97
--- NOTE | 2020-10-28 14:50 | Discharge Summary ---
Providers - Providers Date of Admission: 10/25/20 13:37 Date of discharge: 10/28/20 Attending physician: DAYANARA FOLEY 10/25/20 02:54 Consult to Dietitian/Nutrition [CONS] Routine Physician Instructions: Reason For Exam: Reason for Consult: Diet education Primary care physician: LAUNDRY SORTER Hospitalization Condition: Critical Hospital course: Subjective Date of service: 10/28/20 Principal diagnosis: Acute pyelonephritis Interval history: 40-year-old female with significant past medical history of hypertension, diabetes mellitus, asthma, HIV positive and hyperlipidemia presents to the emergency room today complaining of bilateral lower back pain, bilateral flank pain, lower abdominal pain, dizziness. Symptoms has been ongoing for about 1 to 2 weeks and progressively getting worse. Patient was seen by her primary care physician less than a week ago and was sent here for further evaluation during which she was given some antibiotics for possible cystitis. She denies any fever or chills, denies any headache but has had some dizziness with a syncopal episode at work today. She had a brief loss of consciousness but denies any head trauma and denies any neck pain. She has had some nausea but no vomiting or diarrhea. Patient denies any sick contacts and no recent travel. Denies any contact with anyone with COVID-19. Work-up in the emergency room today reveals stable elevated BUN and creatinine of 26 and 1.9. Urinalysis was consistent with a UTI. CT scan of the head shows no acute findings. CT of the abdomen and pelvis is still being awaited. Patient admitted with UTI with possible accompanying pyelonephritis. 10/26/2020; pyelonephritis Continue empiric antibiotics, follow culture sensitivities Adjust antibiotics as needed Possible discharge in 1 to 2 days if stable 10 27 2020 Right flank pain present Afebrile 10/28/2020 Patient doing very well No complaints Wants to go home Assessment and Plan (1) Pyelonephritis Current Visit: Yes Status: Acute Plan to address problem: We will discharge on oral antibiotics Ceftin 500 twice daily (2) Dehydration Current Visit: Yes Status: Acute Dehydration resolved (3) Diabetes mellitus type 2 in obese Current Visit: No Status: Acute Insulin dosage adjusted adjusted based NovoLog 70/30 25 units twice a day (4) Hypertension moderate control Current Visit: No Status: Acute Continue current antihypertensives As needed medications (5) HIV (human immunodeficiency virus infection) Current Visit: No Status: Chronic Patient diagnosed in 2003. Follows up with Dr. Pedro Ponce. Viral load undetectable in August 2020. Patient is currently on antiretroviral medications (6) Hyperlipidemia Current Visit: No Status: Chronic Continue statin (7) DVT prophylaxis Current Visit: No Status: Acute Patient placed on subcutaneous heparin (8) Full code status Current Visit: No Status: Acute Patient is full code We will closely monitor the patient and adjust the management as needed Plan of care reviewed with the patient and her nurse Disposition: DC-01 TO HOME OR SELFCARE Final Discharge Diagnosis (Prints w/discharge instructions): Acute pyelonephritis. HIV. Hypertension. Type 2 diabetes - Discharge Diagnoses (1) Pyelonephritis Status: Acute (2) Acute cystitis Status: Acute Qualifiers: Hematuria presence: without hematuria Qualified Code(s): N30.00 - Acute cystitis without hematuria (3) Abdominal pain Status: Acute Qualifiers: Abdominal location: lower abdomen, unspecified Qualified Code(s): R10.30 - Lower abdominal pain, unspecified (4) Dehydration Status: Acute Core Measure Documentation - Palliative Care Palliative Care/ Comfort Measures: Not Applicable - Core Measures Any of the following diagnoses?: none Exam - Constitutional Vitals: Temp Pulse Resp BP Pulse Ox 97.3 F L 88 16 190/97 100 10/28/20 11:25 10/28/20 11:25 10/28/20 11:25 10/28/20 11:25 10/28/20 11:25 General appearance: Present: no acute distress, well-nourished - EENT Eyes: Present: PERRL ENT: hearing intact, clear oral mucosa - Neck Neck: Present: supple, normal ROM - Respiratory Respiratory effort: normal Respiratory: bilateral: CTA - Cardiovascular Heart rate: 78 Heart Sounds: Present: S1 & S2. Absent: rub, click - Extremities Extremities: pulses symmetrical, No edema Peripheral Pulses: within normal limits - Abdominal General gastrointestinal: Present: soft, non-tender, non-distended, normal bowel sounds Female genitourinary: Present: normal - Integumentary Integumentary: Present: clear, warm, dry - Musculoskeletal Musculoskeletal: gait normal, strength equal bilaterally - Psychiatric Psychiatric: appropriate mood/affect, intact judgment & insight - Neurologic Neurologic: CNII-XII intact, moves all extremities Plan Activity: no restrictions Diet: diabetic Follow up with: PRIMARY CARE, [Primary Care Provider] - 7 Days
--- NOTE | 2020-10-29 08:01 | Cat Scan Report ---
CT ABDOMEN AND PELVIS WITHOUT CONTRAST INDICATION / CLINICAL INFORMATION: Patient complains of "Generalized" abdominal pain.. TECHNIQUE: Axial CT images were obtained through the abdomen and pelvis without IV contrast. All CT scans at this location are performed using CT dose reduction for ALARA by means of automated exposure control. COMPARISON: CT scan dated 10/22/2020 and 09/27/2020 and 09/02/2020 and 08/10/2020 FINDINGS: LOWER CHEST: No significant abnormality. LIVER: No significant abnormality. GALLBLADDER: Cholecystectomy. BILE DUCTS: No significant abnormality. PANCREAS: No significant abnormality. SPLEEN: No significant abnormality. ADRENALS: No significant abnormality. RIGHT KIDNEY / URETER: 2 cm hypodensity in the posterior right kidney appears unchanged. There are no ureteral calculi. LEFT KIDNEY / URETER: Nephrolithiasis appears unchanged. There are no ureteral calculi. STOMACH / SMALL BOWEL: No significant abnormality. COLON: No significant abnormality. APPENDIX: No significant abnormality. PERITONEUM: No free fluid. No free air. No fluid collection. LYMPH NODES: No significant adenopathy. AORTA / ARTERIES: No significant abnormality. IVC / VEINS: No significant abnormality. URINARY BLADDER: No significant abnormality. REPRODUCTIVE ORGANS: Uterus is absent. No significant adnexal abnormality. ADDITIONAL FINDINGS: None. SKELETAL SYSTEM: No significant abnormality. IMPRESSION: 1. There is persistent left nephrolithiasis. There are no ureteral calculi. There is no obstruction, inflammation, or free air. Signer Name: Joseph Sutton MD Signed: 10/25/2020 2:11 AM Workstation Name: [id number]
--- NOTE | 2020-10-29 08:02 | Cat Scan Report ---
CT HEAD WITHOUT CONTRAST INDICATION: Syncope TECHNIQUE: Axial slices were obtained through the head. Coronal and sagittal reformatted images were obtained. COMPARISON: None available. FINDINGS: There is no intracranial hemorrhage or extra-axial fluid collection. Ventricles, basilar cisterns, an d sulci appear within normal limits for age. There is no mass lesion or midline shift. No acute sugar torial infarct is identified. Bone windows demonstrate no acute osseous abnormality. There is a small mucous retention cyst in the left maxillary sinus. TECHNIQUE: All CT scans at this facility use dose modulation, iterative reconstruction, automated ex posure control, weight based dosing, when appropriate, to reduce radiation dose to as low as reasonab ly achievable. IMPRESSION: 1. No acute intracranial abnormality. Signer Name: Joseph Sutton MD Signed: 10/25/2020 2:04 AM Workstation Name: [id number]
== END 2020-10-28 18:41 | disposition home or self-care (01) | DRG 690 ==
LOC: ED 15:51 → 3A 10-25 02:54 → OBSVTOIN 10-25 13:37
PROVIDERS: ADMIT Internal Medicine Geriatric Medicine; ATTEND Internal Medicine
DX: N10 Acute pyelonephritis (principal); N17.0 Acute kidney failure with tubular necrosis; E86.0 Dehydration; Z21 Asymptomatic human immunodeficiency virus [HIV] infection status; I12.9 Hypertensive chronic kidney disease with stage 1 through stage 4 chronic kidney disease, or unspecified chronic kidney disease; E78.5 Hyperlipidemia, unspecified; E11.22 Type 2 diabetes mellitus with diabetic chronic kidney disease; N18.9 Chronic kidney disease, unspecified; E78.00 Pure hypercholesterolemia, unspecified; F41.9 Anxiety disorder, unspecified; F17.200 Nicotine dependence, unspecified, uncomplicated; F32.9 Major depressive disorder, single episode, unspecified; J44.9 Chronic obstructive pulmonary disease, unspecified; Z79.899 Other long term (current) drug therapy; Z79.01 Long term (current) use of anticoagulants; Z79.891 Long term (current) use of opiate analgesic; Z79.4 Long term (current) use of insulin; Z88.5 Allergy status to narcotic agent; Z88.2 Allergy status to sulfonamides; Z88.8 Allergy status to other drugs, medicaments and biological substances; Z91.013 Allergy to seafood; Z90.49 Acquired absence of other specified parts of digestive tract; Z90.710 Acquired absence of both cervix and uterus
CPT/HCPCS: 36415; 70450; 74176; 80048; 80053; 81001; 81025; 82962; 83690; 83735; 84703; 85025; 85610; 87076; 87086; 87186; G0378; J0696; J1170; J1200; J1644; J1815; J2405; J2765; J7030

== ENCOUNTER 2020-12-17 21:22 | Emergency (ER) | payer MEDICARE ==
[2020-12-18 02:02] VITALS: BP 194/98
--- NOTE | 2020-12-18 02:21 | Event Note ---
ED Screening Note Date of service: 12/18/20 Time: 02:20 ED Screening Note: 40-year-old female patient with history of HIV, diabetes, hypertension, and recurrent UTI/pyelonephritis presents to the emergency department with complaints of diffuse lower abdominal pain and bilateral flank pain starting 3 days ago. Also endorses painful urination and foul-smelling urine. Last use of antibiotics was approximately 2 months ago. States she was admitted to this hospital in October for pyelonephritis. Last CD4 count was undetectable. Patient has not been evaluated by a urologist for her recurrent genitourinary infections. Patient is status post hysterectomy. Hypertensive in triage. General: Awake, appropriately interactive, no acute distress. Neck: Supple. Full range of motion intact. Cardiovascular: Normal peripheral perfusion. Pulmonary: No respiratory distress. Patient is speaking normally without use of accessory muscles. Abdomen: Diffuse lower abdominal tenderness. Back: Bilateral CVA tenderness. Skin: No apparent rashes or lesions. Neurological: No facial asymmetry. Speech is clear. Follows commands. Patient is alert and oriented. Musculoskeletal: Moves all four extremities spontaneously with normal range of motion. Psych: Cooperative. Appropriate mood and affect. Labs and urinalysis ordered. Decision to obtain imaging deferred to additional ED providers following full history and comprehensive physical exam. I have greeted and performed a focused rapid initial assessment of this patient. A comprehensive ED assessment and evaluation of the patient, analysis of all test results, and completion of the medical decision-making process will be conducted by additional ED providers. This initial assessment/diagnostic orders/clinical plan/treatment(s) is/are subject to change based on patients health status, clinical progression and re-assessment. Further treatment and workup at subsequent clinical provider's discretion. Patient/guardian urged not to elope from the ED as their condition may be serious if not clinically assessed and managed.
[2020-12-18] MEDS ORDERED: ONDANSETRON 4 MG ODT TAB PO ONE (02:25)
[2020-12-18] MEDS ORDERED: KETOROLAC 30 MG/1 ML INJ IM ONE (02:25)
[2020-12-18] MEDS ORDERED: NITROFURANTOIN MONOHYD/M-CRYST 100 MG CAP PO ONE (02:25)
[2020-12-18] MEDS ORDERED: oxyCODONE /ACETAMINOPHEN 5-325MG TAB PO ONE (02:26)
--- NOTE | 2020-12-18 02:32 | Emergency Department Report ---
ED Female HPI - General Chief complaint: Abdominal Pain Stated complaint: AB PAIN Time Seen by Provider: 12/18/20 02:19 Source: patient Mode of arrival: Ambulatory Limitations: No Limitations - History of Present Illness Initial comments: Chief complaint: Painful urination foul malodorous urine HPI: This is a 40-year-old female with history of diabetes mellitus, hypertension, HIV on ART, renal stones, who presents with dysuria frequent urination malodorous urine. She has severe burning pain in the bladder region which radiates to the left flank. She denies fever. She does have nausea. Pain is moderately severe. History of hysterectomy. MD Complaint: dysuria -: Gradual Severity: moderate Consistency: constant Improves with: none Worsens with: urination Are you Now?: No - Related Data Home Medications Medication Instructions Recorded Confirmed Last Taken Abacavir/Dolutegravir/Lamivudi 1 each PO DAILY 07/10/15 08/11/20 09/08/17 [Triumeq 600-50-300 mg Tablet] Doxepin 25 10/22/20 Unknown Insulin Lispro-Aabc [Lyumjev 10/22/20 Unknown Kwikpen U-100] Lispro Insulin 1000units 10/22/20 Unknown Previous Rx's Medication Instructions Recorded Last Taken Type Albuterol Mdi (or & Nicu Only) 2 puff IH QID PRN #8.5 gram 04/25/19 Unknown Rx [ProAir HFA Inhaler] Gabapentin [Neurontin] 800 mg PO TID #90 10/28/20 Unknown Rx Insulin NPH/Regular [NovoLIN 70/30] 25 unit SUB-Q BIDDIAB #2 vial 10/28/20 Unknown Rx Losartan [Cozaar] 100 mg PO QDAY #90 10/28/20 Unknown Rx levoFLOXacin [Levaquin TAB] 750 mg PO QDAY 5 Days #5 tablet 10/28/20 Unknown Rx traMADoL [Ultram 50 MG tab] 50 mg PO Q6HR PRN #30 tablet 10/28/20 Unknown Rx HYDROcodone/APAP 5-325 [[place] 1 each PO Q6HR PRN #10 tablet 12/18/20 Unknown Rx 5/325] Ibuprofen [Motrin 800 MG tab] 800 mg PO Q8HR PRN #20 tablet 12/18/20 Unknown Rx Nitrofurantoin Riley/M-Cryst 100 mg PO Q12HR 7 Days #14 capsule 12/18/20 Unknown Rx [Macrobid CAP] Ondansetron [Zofran Odt] 4 mg PO Q8HR PRN #10 tab.rapdis 12/18/20 Unknown Rx Allergies Allergy/AdvReac Type Severity Reaction Status Date / Time iodine Allergy Swelling Verified 10/24/20 16:42 sulfamethoxazole Allergy Rash Verified 10/24/20 16:42 [From Bactrim] trimethoprim [From Bactrim] Allergy Rash Verified 10/24/20 16:42 metformin AdvReac Nausea Verified 10/24/20 16:42 seafood Allergy Rash Uncoded 02/16/18 13:38 ED Review of Systems ROS: Stated complaint: AB PAIN Other details as noted in HPI Comment: All other systems reviewed and negative Constitutional: denies: chills, fever, malaise Respiratory: denies: cough, shortness of breath Gastrointestinal: nausea. denies: abdominal pain, vomiting, diarrhea Genitourinary: urgency, frequency Musculoskeletal: back pain ED Past Medical Hx - Past Medical History Previous Medical History?: Yes Hx Hypertension: Yes Hx Heart Attack/AMI: No Hx Congestive Heart Failure: No Hx Diabetes: Yes Hx Liver Disease: No Hx Renal Disease: Yes Hx Seizures: No Hx Psychiatric Treatment: Yes (anxiety depression) Hx Asthma: Yes Hx COPD: Yes Hx HIV: Yes Additional medical history: HIGH CHOLESTEROL - Surgical History Past Surgical History?: Yes Hx Pacemaker: No Hx Internal Defibrillator: No Hx Cholecystectomy: Yes Additional Surgical History: d&c x1, insulin pump placement, TOTAL HYSTERECTOMY, boil removal to R inner thigh - Social History Smoking Status: Current Every Day Smoker Substance Use Type: None - Medications Home Medications: Home Medications Medication Instructions Recorded Confirmed Last Taken Type Abacavir/Dolutegravir/Lamivudi 1 each PO DAILY 07/10/15 08/11/20 09/08/17 History [Triumeq 600-50-300 mg Tablet] Albuterol Mdi (or & Nicu Only) 2 puff IH QID PRN #8.5 gram 04/25/19 08/11/20 Unknown Rx [ProAir HFA Inhaler] Doxepin 25 10/22/20 Unknown History Insulin Lispro-Aabc [Lyumjev 10/22/20 Unknown History Kwikpen U-100] Lispro Insulin 1000units 10/22/20 Unknown History Gabapentin [Neurontin] 800 mg PO TID #90 10/28/20 Unknown Rx Insulin NPH/Regular [NovoLIN 70/30] 25 unit SUB-Q BIDDIAB #2 vial 10/28/20 Unknown Rx Losartan [Cozaar] 100 mg PO QDAY #90 10/28/20 Unknown Rx levoFLOXacin [Levaquin TAB] 750 mg PO QDAY 5 Days #5 tablet 10/28/20 Unknown Rx traMADoL [Ultram 50 MG tab] 50 mg PO Q6HR PRN #30 tablet 10/28/20 Unknown Rx HYDROcodone/APAP 5-325 [[place] 1 each PO Q6HR PRN #10 tablet 12/18/20 Unknown Rx 5/325] Ibuprofen [Motrin 800 MG tab] 800 mg PO Q8HR PRN #20 tablet 12/18/20 Unknown Rx Nitrofurantoin Riley/M-Cryst 100 mg PO Q12HR 7 Days #14 capsule 12/18/20 Unknown Rx [Macrobid CAP] Ondansetron [Zofran Odt] 4 mg PO Q8HR PRN #10 tab.rapdis 12/18/20 Unknown Rx ED Physical Exam - General Limitations: No Limitations General appearance: alert, in no apparent distress - Head Head exam: Present: atraumatic, normocephalic - Eye Eye exam: Present: normal appearance - ENT ENT exam: Present: mucous membranes moist - Neck Neck exam: Present: normal inspection, full ROM - Respiratory Respiratory exam: Present: normal lung sounds bilaterally. Absent: respiratory distress, wheezes, rales, rhonchi - Cardiovascular Cardiovascular Exam: Present: regular rate, normal rhythm, normal heart sounds. Absent: systolic murmur, diastolic murmur, rubs, gallop - GI/Abdominal GI/Abdominal exam: Present: soft, normal bowel sounds. Absent: distended, tenderness, guarding, rebound - Extremities Exam Extremities exam: Present: normal inspection - Back Exam Back exam: Present: normal inspection - Neurological Exam Neurological exam: Present: alert, oriented X3 - Psychiatric Psychiatric exam: Present: normal affect, normal mood - Skin Skin exam: Present: warm, dry, intact, normal color. Absent: rash ED Course Vital Signs 12/18/20 12/18/20 01:54 02:21 Temperature 98.7 F Pulse Rate 99 H Blood Pressure 194/98 O2 Sat by Pulse 98 Oximetry ED Medical Decision Making - Medical Decision Making Clinical impression: UTI patient has dysuria malodorous urine suprapubic pain. She does have radiation to the left flank. However she does not appear toxic. She is afebrile. Lower suspicion for pyelonephritis. Prescribed 7 days of Macrobid as well as [place] ibuprofen and Zofran. Given IM ketorolac, p.o. Percocet, Zofran in the emergency department as well as first dose of Macrobid p.o. Critical care attestation.: If time is entered above; I have spent that time in minutes in the direct care of this critically ill patient, excluding procedure time. ED Disposition Clinical Impression: Urinary tract infection Disposition: HOME / SELF CARE / HOMELESS Is pt being admited?: No Does the pt Need Aspirin: No Condition: Stable Instructions: Abdominal Pain (ED), Urinary Tract Infection, Adult Prescriptions: Nitrofurantoin Riley/M-Cryst [Macrobid CAP] 100 mg PO Q12HR 7 Days #14 capsule Ibuprofen [Motrin 800 MG tab] 800 mg PO Q8HR PRN #20 tablet PRN Reason: Pain , Severe (7-10) HYDROcodone/APAP 5-325 [[place] 5/325] 1 each PO Q6HR PRN #10 tablet PRN Reason: Pain Ondansetron [Zofran Odt] 4 mg PO Q8HR PRN #10 tab.rapdis PRN Reason: Nausea Referrals: OMAIRA CONTRERAS MD [Staff Physician] - 3-5 Days
== END 2020-12-18 03:05 | disposition home or self-care (01) ==
LOC: ED 21:22
DX: N39.0 Urinary tract infection, site not specified (principal); I12.9 Hypertensive chronic kidney disease with stage 1 through stage 4 chronic kidney disease, or unspecified chronic kidney disease; E11.22 Type 2 diabetes mellitus with diabetic chronic kidney disease; N18.9 Chronic kidney disease, unspecified; F32.9 Major depressive disorder, single episode, unspecified; F41.8 Other specified anxiety disorders; J44.9 Chronic obstructive pulmonary disease, unspecified; B20 Human immunodeficiency virus [HIV] disease; E78.00 Pure hypercholesterolemia, unspecified; Z98.890 Other specified postprocedural states; F17.200 Nicotine dependence, unspecified, uncomplicated; Z88.8 Allergy status to other drugs, medicaments and biological substances; Z91.013 Allergy to seafood; Z91.041 Radiographic dye allergy status
CPT/HCPCS: 99282; J1885; Q0162

== ENCOUNTER 2021-01-09 17:06 | Emergency (ER) | payer MEDICARE ==
[2021-01-09] MEDS ORDERED: MORPHINE 4 MG/1 ML INJ IV ONE (17:44)
[2021-01-09] MEDS ORDERED: ONDANSETRON 4 MG/2 ML INJ IV ONE (17:44)
--- NOTE | 2021-01-09 17:45 | Emergency Department Report ---
ED Abdominal Pain HPI - General Chief Complaint: Abdominal Pain Stated Complaint: ABD PAIN Time Seen by Provider: 01/09/21 17:27 Source: patient Mode of arrival: Ambulatory Limitations: No Limitations - History of Present Illness Initial Comments: 40-year-old female with a past medical history of HIV, type 1 diabetes, hypertension, hyperlipidemia, renal stones and asthma presents to the ER today with complaint of worsening lower abdominal pain over the past 3-4 with radiation of the pain into her lower back, worsening dysuria and urinary odor. She denies any hematuria. She reports associated nausea, vomiting and white vaginal discharge. She states that she did have a temperature last night of 103. She denies any new sexual partners. She is status post hysterectomy. Patient states that she was seen here about 1 to 2 weeks ago for similar sy mptoms, at the time they treated for UTI with Macrobid which she states that she took all of the antibiotics, but she states it did not help as her symptoms have gotten worse. MD Complaint: abdominal pain -: week(s) (3-4) - Related Data Home Medications Medication Instructions Recorded Confirmed Last Taken Abacavir/Dolutegravir/Lamivudi 1 each PO DAILY 07/10/15 08/11/20 09/08/17 [Triumeq 600-50-300 mg Tablet] Doxepin 25 10/22/20 Unknown Insulin Lispro-Aabc [Lyumjev 10/22/20 Unknown Kwikpen U-100] Lispro Insulin 1000units 10/22/20 Unknown Previous Rx's Medication Instructions Recorded Last Taken Type Albuterol Mdi (or & Nicu Only) 2 puff IH QID PRN #8.5 gram 04/25/19 Unknown Rx [ProAir HFA Inhaler] Gabapentin [Neurontin] 800 mg PO TID #90 10/28/20 Unknown Rx Insulin NPH/Regular [NovoLIN 70/30] 25 unit SUB-Q BIDDIAB #2 vial 10/28/20 Unk nown Rx Losartan [Cozaar] 100 mg PO QDAY #90 10/28/20 Unknown Rx Ibuprofen [Motrin 800 MG tab] 800 mg PO Q8HR PRN #20 tablet 12/18/20 Unknown Rx Fluconazole [Diflucan TAB] 200 mg PO QDAY #2 tablet 01/09/21 Unknown Rx HYDROcodone/APAP 5-325 [[place] 1 each PO Q6HR PRN #10 tablet 01/09/21 Unknown Rx 5-325 mg TAB] Ondansetron [Zofran ODT TAB] 4 mg PO Q8HR PRN #10 tab.rapdis 01/09/21 Unknown Rx cephALEXin [Keflex] 500 mg PO Q6HR #40 capsule 01/09/21 Unknown Rx Allergies Allergy/AdvReac Type Severity Reaction Status Date / Time iodine Allergy Swelling Verified 10/24/20 16:42 sulfamethoxazole Allergy Rash Verified 10/24/20 16:42 [From Bactrim] trimethoprim [From Bactrim] Allergy Rash Verified 10/24/20 16:42 metformin AdvReac Nausea Verified 10/24/20 16:42 seafood Allergy Rash Uncoded 02/16/18 13:38 ED Review of Systems ROS: Stated complaint: ABD PAIN Other details as noted in HPI Comment: All other systems reviewed and negative Constitutional: fever Gastrointestinal: abdominal pain, nausea, vomiting. denies: diarrhea, constipation, hematemesis, melena, hematochezia Genitourinary: dysuria, discharge. denies: hematuria, abnormal menses, dyspareunia Musculoskeletal: back pain Skin: denies: rash, lesions, change in color, change in hair/nails, pruritus Neurological: denies: headache, weakness, numbness, paresthesias, confusion, abnormal gait, vertigo Psychiatric: denies: anxiety, depression, auditory hallucinations, visual hallucinations, homicidal thoughts, suicidal thoughts Hematological/Lymphatic: denies: easy bleeding, easy bruising, swollen glands ED Past Medical Hx - Past Medical History Previous Medical History?: Yes Hx Hypertension: Yes Hx Heart Attack/AMI: No Hx Congestive Heart Failure: No Hx Diabetes: Yes Hx Liver Disease: No Hx Renal Disease: Yes Hx Seizures: No Hx Psychiatric Treatment: Yes (anxiety depression) Hx Asthma: Yes Hx COPD: Yes Hx HIV: Yes Additional medical history: HIGH CHOLESTEROL - Surgical History Hx Pacemaker: No Hx Internal Defibrillator: No Hx Cholecystectomy: Yes Additional Surgical History: d&c x1, insulin pump placement, TOTAL HYSTERECTOMY, boil removal to R inner thigh - Social History Smoking Status: Current Every Day Smoker Substance Use Type: None - Medications Home Medications: Home Medications Medication Instructions Recorded Confirmed Last Taken Type Abacavir/Dolutegravir/Lamivudi 1 each PO DAILY 0408/11/20 09/08/17 History [Triumeq 600-50-300 mg Tablet] Albuterol Mdi (or & Nicu Only) 2 puff IH QID PRN #8.5 gram 04/25/19 08/11/20 Unknown Rx [ProAir HFA Inhaler] Doxepin 25 10/22/20 Unknown History Insulin Lispro-Aabc [Lyumjev 10/22/20 Unknown History Kwikpen U-100] Lispro Insulin 1000units 10/22/20 Unknown History Gabapentin [Neurontin] 800 mg PO TID #90 10/28/20 Unknown Rx Insulin NPH/Regular [NovoLIN 70/30] 25 unit SUB-Q BIDDIAB #2 vial 10/28/20 Unknown Rx Losartan [Cozaar] 100 mg PO QDAY #90 10/28/20 Unknown Rx Ibuprofen [Motrin 800 MG tab] 800 mg PO Q8HR PRN #20 tablet 12/18/20 Unknown Rx Fluconazole [Diflucan TAB] 200 mg PO QDAY #2 tablet 01/09/21 Unknown Rx HYDROcodone/APAP 5-325 [[place] 1 each PO Q6HR PRN #10 tablet 01/09/21 Unknown Rx 5-325 mg TAB] Ondansetron [Zofran ODT TAB] 4 mg PO Q8HR PRN #10 tab.rapdis 01/09/21 Unknown Rx cephALEXin [Keflex] 500 mg PO Q6HR #40 capsule 01/09/21 Unknown Rx ED Physical Exam - General Limitations: No Limitations General appearance: alert, in no apparent distress, obese - Head Head exam: Present: atraumatic, normocephalic, normal inspection - Eye Eye exam: Present: normal appearance, PERRL, EOMI Pupils: Present: normal accommodation - ENT ENT exam: Present: normal exam, mucous membranes moist - Neck Neck exam: Present: normal inspection, full ROM - Respiratory Respiratory exam: Present: normal lung sounds bilaterally. Absent: respiratory distress, wheezes, rales, rhonchi - Cardiovascular Cardiovascular Exam: Present: regular rate, normal rhythm, normal heart sounds - GI/Abdominal GI/Abdominal exam: Present: soft, tenderness (Diffuse lower abdominal tenderness, but more so in the suprapubic area with some mild guarding.) - Back Exam Back exam: Present: CVA tenderness (R), CVA tenderness (L) - Neurological Exam Neurological exam: Present: alert, oriented X3, CN II-XII intact, normal gait - Psychiatric Psychiatric exam: Present: normal affect, normal mood ED Course Vital Signs 01/09/21 01/09/21 17:13 21:00 Temperature 100.8 F H 98.9 F Pulse Rate 106 H 97 H Respiratory 16 18 Rate Blood Pressure 184/82 Blood Pressure 194/89 [Left] O2 Sat by Pulse 100 100 Oximetry ED Medical Decision Making - Lab Data Result diagrams: 01/09/21 17:54 01/09/21 17:54 - Radiology Data Radiology results: report reviewed Patient: POLINA SIMS MR#: [id number] : 1980 Acct:[id number] Age/Sex: 40 / F ADM Date: 01/09/21 Loc: ED Attending Dr: Ordering Physician: JOEY PAEZ Date of Service: 01/09/21 Procedure(s): CT abdomen pelvis wo con Accession Number(s): [id number] cc: JOEY PAEZ CT ABDOMEN AND PELVIS WITHOUT CONTRAST INDICATION / CLINICAL INFORMATION: low abd pain/fever/uti symptoms. TECHNIQUE: Axial CT images were obtained through the abdomen and pelvis without IV contrast. All CT scans at this location are performed using CT dose reduction for ALARA by means of automated exposure control. COMPARISON: CT from 10/23/2020 FINDINGS: LOWER CHEST: Bibasilar volume loss. LIVER: No significant abnormality GALLBLADDER/BILIARY TREE: Cholecystectomy. PANCREAS: No significant abnormality SPLEEN: No significant abnormality ADRENALS: No significant abnormality KIDNEYS / URETER: Right renal cyst and left nephrolithiasis are unchanged. No ureteral calculus or hydronephrosis. There is unchanged bilateral perinephric stranding which is nonspecific. URINARY BLADDER: No significant abnormality REPRODUCTIVE ORGANS: Uterus is absent. No significant adnexal abnormality. STOMACH / BOWEL: No significant abnormality. The appendix is normal in caliber. LYMPH NODES: No new or increasing lymphadenopathy. VASCULATURE: No significant abnormality. OTHER: No free air, free fluid, or focal fluid collection is identified. SKELETAL SYSTEM: No acute osseous findings. IMPRESSION: 1. No acute abnormality of the abdomen or pelvis. 2. Unchanged left nephrolithiasis. No ureteral calculus or hydronephrosis. 3. Other stable chronic and incidental findings as above. Signer Name: Lilly Glavez MD Signed: 01/09/2021 8:56 PM Workstation Name: [id number] Transcribed By: JAVIER Dictated By: LILLY GALVEZ MD Electronically Authenticated By: LILLY GALVEZ MD Signed Date/Time: 01/09/212055 DD/ 51 TD/TT: - Medical Decision Making 2156: Labs reviewed : CBC normal. CMP shows mild renal insufficiency with a creatinine of 1.7, and her BUN is 37 otherwise CMP unremarkable. Reviewing her previous creatinines, patient appears to have a history of some renal insufficiency, today's creatinine is not any worse than her previous renal functions. Patient was given a liter of IV fluids here in the ER today. Lipase was normal. Urinalysis is positive for UTI as well as yeast infection. Wet prep negative. CT abdomen and pelvis shows nothing acute. Patient initial vital signs show that she had a low-grade temp of 100.8 and mildly tacky at 106, but vital signs improved after IV fluids and medication. Patient was initially given IV morphine for pain, but she started getting itchy after the morphine was given a dose of oral Benadryl. No apparent rash, swelling airway compromise and no anaphylactic reaction noted. She is currently sitting comfortably and the chair. She states that she still has some pain in her lower abdomen but she does not appear to be in any distress. She is not toxic, she is not ill and there is no evidence of sepsis on exam warrant work-up today. Discussed all lab results including CT results with patient. At this time there is no indication for admission to the hospital. Patient given a dose of IV Rocephin, she will be discharged home on Keflex and Diflucan and medication to help her abdominal pain. Patient instructed to drink lots of water, and follow-up closely with her PCP. Patient expressed understanding for instructions and agree with plan. Patient was stable at time of discharge. Critical care attestation.: If time is entered above; I have spent that time in minutes in the direct care of this critically ill patient, excluding procedure time. ED Disposition Clinical Impression: UTI (urinary tract infection), Yeast vaginitis Disposition: HOME / SELF CARE / HOMELESS Is pt being admited?: No Does the pt Need Aspirin: No Condition: Stable Instructions: Vaginal Yeast Infection, Adult, Urinary Tract Infection, Adult, [id number], Abdominal Pain (ED) Additional Instructions: I recommend that you take the Keflex as prescribed until completion. I recomm end taking the Diflucan as prescribed, 1 dose now and 1 dose after completion of the Keflex. It is important that you increase your water intake. Take the hydrocodone as prescribed for pain and the Zofran as prescribed for nausea and vomiting. Follow-up closely with your PCP this week or next week. Return to the ER if your symptoms changes or worsens in any way. Prescriptions: Fluconazole [Diflucan TAB] 200 mg PO QDAY #2 tablet cephALEXin [Keflex] 500 mg PO Q6HR #40 capsule HYDROcodone/APAP 5-325 [[place] 5-325 mg TAB] 1 each PO Q6HR PRN #10 tablet PRN Reason: Pain Ondansetron [Zofran ODT TAB] 4 mg PO Q8HR PRN #10 tab.rapdis PRN Reason: Nausea Referrals: PRIMARY CARE, [Referring] - 3-5 Days Forms: Work/School Release Form(ED) Time of Disposition: 21:51 Print Language: SPANISH
[2021-01-09 18:42] LABS: Basophils % (Auto) 0.2 % (0.0-1.8); Eosinophils # (Auto) 0.2 K/mm3 (0.0-0.4); Eosinophils % (Auto) 2.4 % (0.0-4.3); Hematocrit 33.3 % (30.3-42.9); Hemoglobin 11.4 gm/dl (10.1-14.3); Lymphocytes # (Auto) 2.6 K/mm3 (1.2-5.4); Lymphocytes % (Auto) 39.8 % (13.4-35.0); Mean Corpuscular HGB Conc 34 % (30-34); Mean Corpuscular Volume 101 fl (79-97); Monocytes # (Auto) 0.4 K/mm3 (0.0-0.8); Monocytes % (Auto) 6.1 % (0.0-7.3); Platelet Count 166 K/mm3 (140-440); Red Blood Count 3.29 M/mm3 (3.65-5.03); Red Cell Distribution Width 14.8 % (13.2-15.2)
[2021-01-09 18:52] LABS: Alanine Aminotransferase 28 units/L (7-56); Albumin 3.7 g/dL (3.9-5); BUN/Creatinine Ratio 15; Bilirubin,Direct < 0.2 mg/dL (0-0.2); Blood Urea Nitrogen 25 mg/dL (7-17); Calcium 9.7 mg/dL (8.4-10.2); Hemolysis Index 5
[2021-01-09] MEDS ORDERED: ACETAMINOPHEN 325 MG TAB PO ONE (20:21)
[2021-01-09] MEDS ORDERED: diphenhydrAMINE 25 MG CAP PO ONE (20:24)
[2021-01-09 20:39] LABS: Bacteria,Urine 4+ /HPF (Negative); Bilirubin,Urine MOD (Negative); Blood,Urine LG (Negative); Color,Urine Amber (Yellow); Mucus,Urine 3+ /HPF
[2021-01-09 20:48] LABS: Ictotest,Urine Positive (Negative)
--- NOTE | 2021-01-09 21:00 | Cat Scan Report ---
CT ABDOMEN AND PELVIS WITHOUT CONTRAST INDICATION / CLINICAL INFORMATION: low abd pain/fever/uti symptoms. TECHNIQUE: Axial CT images were obtained through the abdomen and pelvis without IV contrast. All CT scans at this location are performed using CT dose reduction for ALARA by means of automated exposure control. COMPARISON: CT from 10/23/2020 FINDINGS: LOWER CHEST: Bibasilar volume loss. LIVER: No significant abnormality GALLBLADDER/BILIARY TREE: Cholecystectomy. PANCREAS: No significant abnormality SPLEEN: No significant abnormality ADRENALS: No significant abnormality KIDNEYS / URETER: Right renal cyst and left nephrolithiasis are unchanged. No ureteral calculus or hy dronephrosis. There is unchanged bilateral perinephric stranding which is nonspecific. URINARY BLADDER: No significant abnormality REPRODUCTIVE ORGANS: Uterus is absent. No significant adnexal abnormality. STOMACH / BOWEL: No significant abnormality. The appendix is normal in caliber. LYMPH NODES: No new or increasing lymphadenopathy. VASCULATURE: No significant abnormality. OTHER: No free air, free fluid, or focal fluid collection is identified. SKELETAL SYSTEM: No acute osseous findings. IMPRESSION: 1. No acute abnormality of the abdomen or pelvis. 2. Unchanged left nephrolithiasis. No ureteral calculus or hydronephrosis. 3. Other stable chronic and incidental findings as above. Signer Name: Andrew Galvez MD Signed: 01/09/2021 8:56 PM Workstation Name: [id number]
[2021-01-09 21:02] VITALS: BP 184/82
[2021-01-09] MEDS ORDERED: cefTRIAXone/NS 1 GM/50 ML 1 GM/50 ML BAG IV ONE (21:10)
[2021-01-09] MEDS ORDERED: oxyCODONE /ACETAMINOPHEN 5-325MG TAB PO ONE (21:57)
== END 2021-01-09 22:32 | disposition home or self-care (01) ==
LOC: ED 17:06
DX: N39.0 Urinary tract infection, site not specified (principal); B37.3 Candidiasis of vulva and vagina; I12.9 Hypertensive chronic kidney disease with stage 1 through stage 4 chronic kidney disease, or unspecified chronic kidney disease; E11.22 Type 2 diabetes mellitus with diabetic chronic kidney disease; N18.9 Chronic kidney disease, unspecified; J44.9 Chronic obstructive pulmonary disease, unspecified; F41.9 Anxiety disorder, unspecified; F32.9 Major depressive disorder, single episode, unspecified; Z21 Asymptomatic human immunodeficiency virus [HIV] infection status; Z98.890 Other specified postprocedural states; F17.200 Nicotine dependence, unspecified, uncomplicated; Z88.2 Allergy status to sulfonamides; Z88.8 Allergy status to other drugs, medicaments and biological substances; Z91.013 Allergy to seafood; Z91.041 Radiographic dye allergy status
CPT/HCPCS: 36415; 74176; 80048; 80076; 81001; 83690; 84703; 85025; 87040; 87076; 87086; 87186; 87210; 87591; 96365; 96375; 99284; J0696; J2270; J2405

== ENCOUNTER 2021-01-30 11:07 | Emergency (ER) | payer MEDICARE ==
[2021-01-30 11:19] VITALS: BP 157/86
--- NOTE | 2021-01-30 11:47 | Emergency Department Report ---
ED Female HPI - General Chief complaint: Abdominal Pain Stated complaint: abdominal pain Time Seen by Provider: 01/30/21 11:20 Source: patient Mode of arrival: Ambulatory Limitations: No Limitations - History of Present Illness Initial comments: Chief complaint: " I keep having abdominal pain. My urine is just foul." HPI: This is a 41 yo female with hx of insulin-dependent diabetes, HIV, cystitis, sepsis, recurrent urinary tract infection skin infection, kidney stone who presents with subacute abdominal pain for the last 2 months. She has dysu kelsie with malodorous urine. Referred to urologist. Her first appointment with neurologist is next month. She has persistent pain despite several ED visits over the last year. She denies fever, vomiting, diarrhea. Patient has had numerous urinary tract infection. Has been on several antibiotics. Diagnosed with UTI earlier this month. Urine culture 01/09/[address] revealed pansensitive E[address] coli organism. CT scan obtained of the abdomen pelvis did not reveal acute abnormality. Patient had persistent left renal nephrolithiasis. Patient has had dysuria malodorous urine radiating to the back for over 2 months. MD Complaint: other (Dysuria suprapubic pain radiating to both flanks) -: Gradual, month(s) (2 months) Severity: moderate Quality: dull Consistency: constant Improves with: none Worsens with: none - Related Data Home Medications Medication Instructions Recorded Confirmed Last Taken Abacavir/Dolutegravir/Lamivudi 1 each PO DAILY 07/10/15 08/11/20 09/08/17 [Triumeq 600-50-300 mg Tablet] Doxepin 25 10/22/20 Unknown Insulin Lispro-Aabc [Lyumjev 10/22/20 Unknown Kwikpen U-100] Lispro Insulin 1000units 10/22/20 Unknown Previous Rx's Medication Instructions Recorded Last Taken Type Albuterol Mdi (or & Nicu Only) 2 puff IH QID PRN #8.5 gram 04/25/19 Unknown Rx [ProAir HFA Inhaler] Gabapentin [Neurontin] 800 mg PO TID #90 10/28/20 Unknown Rx Insulin NPH/Regular [NovoLIN 70/30] 25 unit SUB-Q BIDDIAB #2 vial 10/28/20 Unknown Rx Losartan [Cozaar] 100 mg PO QDAY #90 10/28/20 Unknown Rx Ibuprofen [Motrin 800 MG tab] 800 mg PO Q8HR PRN #20 tablet 12/18/20 Unknown Rx Fluconazole [Diflucan TAB] 200 mg PO QDAY #2 tablet 01/09/21 Unknown Rx HYDROcodone/APAP 5-325 [[place] 1 each PO Q6HR PRN #10 tablet 01/09/21 Unknown Rx 5-325 mg TAB] Ondansetron [Zofran ODT TAB] 4 mg PO Q8HR PRN #10 tab.rapdis 01/09/21 Unknown Rx cephALEXin [Keflex] 500 mg PO Q6HR #40 capsule 01/09/21 Unknown Rx Nitrofurantoin [place]/M-Cryst 100 mg PO Q12HR 7 Days #14 capsule 01/30/21 Unknown Rx [Macrobid CAP] traMADoL [Ultram 50 MG tab] 50 mg PO Q6HR PRN #10 tablet 01/30/21 Unknown Rx Allergies Allergy/AdvReac Type Severity Reaction Status Date / Time iodine Allergy Swelling Verified 01/30/21 11:16 sulfamethoxazole Allergy Rash Verified 01/30/21 11:16 [From Bactrim] trimethoprim [From Bactrim] Allergy Rash Verified 01/30/21 11:16 metformin AdvReac Nausea Verified 01/30/21 11:16 seafood Allergy Rash Uncoded 01/30/21 11:16 ED Review of Systems ROS: Stated complaint: abdominal pain Other details as noted in HPI Comment: All other systems reviewed and negative Constitutional: denies: chills, fever, malaise Respiratory: denies: cough, shortness of breath Cardiovascular: denies: chest pain Gastrointestinal: abdominal pain. denies: nausea, vomiting Genitourinary: dysuria Skin: denies: rash, lesions ED Past Medical Hx - Past Medical History Previous Medical History?: Yes Hx Hypertension: Yes Hx Heart Attack/AMI: No Hx Congestive Heart Failure: No Hx Diabetes: Yes Hx Liver Disease: No Hx Renal Disease: Yes Hx Seizures: No Hx Psychiatric Treatment: Yes (anxiety depression) Hx Asthma: Yes Hx COPD: Yes Hx HIV: Yes Additional medical history: HIGH CHOLESTEROL - Surgical History Past Surgical History?: Yes Hx Pacemaker: No Hx Internal Defibrillator: No Hx Cholecystectomy: Yes Additional Surgical History: d&c x1, insulin pump placement, TOTAL HYSTERECTOMY, boil removal to R inner thigh - Social History Smoking Status: Current Every Day Smoker Substance Use Type: None - Medications Home Medications: Home Medications Medication Instructions Recorded Confirmed Last Taken Type Abacavir/Dolutegravir/Lamivudi 1 each PO DAILY 07/10/15 08/11/20 09/08/17 History [Triumeq 600-50-300 mg Tablet] Albuterol Mdi (or & Nicu Only) 2 puff IH QID PRN #8.5 gram 04/25/19 08/11/20 Unknown Rx [ProAir HFA Inhaler] Doxepin 25 10/22/20 Unknown History Insulin Lispro-Aabc [Lyumjev 10/22/20 Unknown History Kwikpen U-100] Lispro Insulin 1000units 10/22/20 Unknown History Gabapentin [Neurontin] 800 mg PO TID #90 10/28/20 Unknown Rx Insulin NPH/Regular [NovoLIN 70/30] 25 unit SUB-Q BIDDIAB #2 vial 10/28/20 Unknown Rx Losartan [Cozaar] 100 mg PO QDAY #90 10/28/20 Unknown Rx Ibuprofen [Motrin 800 MG tab] 800 mg PO Q8HR PRN #20 tablet 12/18/20 Unknown Rx Fluconazole [Diflucan TAB] 200 mg PO QDAY #2 tablet 01/09/21 Unknown Rx HYDROcodone/APAP 5-325 [[place] 1 each PO Q6HR PRN #10 tablet 01/09/21 Unknown Rx 5-325 mg TAB] Ondansetron [Zofran ODT TAB] 4 mg PO Q8HR PRN #10 tab.rapdis 01/09/21 Unknown Rx cephALEXin [Keflex] 500 mg PO Q6HR #40 capsule 01/09/21 Unknown Rx Nitrofurantoin [place]/M-Cryst 100 mg PO Q12HR 7 Days #14 capsule 01/30/21 Unknown Rx [Macrobid CAP] traMADoL [Ultram 50 MG tab] 50 mg PO Q6HR PRN #10 tablet 01/30/21 Unknown Rx ED Physical Exam - General Limitations: No Limitations General appearance: alert, in no apparent distress - Head Head exam: Present: atraumatic, normocephalic - Eye Eye exam: Present: normal appearance - ENT ENT exam: Present: mucous membranes moist - Neck Neck exam: Present: normal inspection, full ROM - Respiratory Respiratory exam: Present: normal lung sounds bilaterally. Absent: respiratory distress, wheezes, rales, rhonchi, stridor - Cardiovascular Cardiovascular Exam: Present: regular rate, normal rhythm, normal heart sounds. Absent: systolic murmur, diastolic murmur, rubs, gallop - GI/Abdominal GI/Abdominal exam: Present: soft, normal bowel sounds. Absent: distended, tenderness, guarding, rebound - Extremities Exam Extremities exam: Present: normal inspection - Back Exam Back exam: Present: normal inspection - Neurological Exam Neurological exam: Present: alert, oriented X3 - Psychiatric Psychiatric exam: Present: normal affect, normal mood - Skin Skin exam: Present: warm, dry, intact, normal color. Absent: rash ED Course Vital Signs 01/30/21 11:17 Temperature 98.9 F Pulse Rate 66 Respiratory 18 Rate Blood Pressure 157/86 O2 Sat by Pulse 97 Oximetry ED Medical Decision Making - Medical Decision Making Recurrent cystitis: With persistent symptoms differential diagnosis includes IBS gastroparesis. I have prescribed Macrobid and tramadol. Patient will follow up with her personal physician Dr. Friend as well as urologist as appointed. Critical care attestation.: If time is entered above; I have spent that time in minutes in the direct care of this critically ill patient, excluding procedure time. ED Disposition Clinical Impression: Cystitis Disposition: 01 HOME / SELF CARE / HOMELESS Is pt being admited?: No Does the pt Need Aspirin: No Condition: Stable Instructions: Abdominal Pain (ED), Acute Urinary Retention, Female, [id number] Prescriptions: Nitrofurantoin [place]/M-Cryst [Macrobid CAP] 100 mg PO Q12HR 7 Days #14 capsule traMADoL [Ultram 50 MG tab] 50 mg PO Q6HR PRN #10 tablet PRN Reason: Pain Referrals: OMAIRA FRIEND MD [Staff Physician] - 3-5 Days
[2021-01-30] MEDS ORDERED: NITROFURANTOIN MONOHYD/M-CRYST 100 MG CAP PO ONE (11:50)
[2021-01-30] MEDS ORDERED: traMADol 50 MG TAB PO ONE (11:50)
== END 2021-01-30 12:23 | disposition home or self-care (01) ==
LOC: ED 11:07
DX: N30.90 Cystitis, unspecified without hematuria (principal); I10 Essential (primary) hypertension; E11.9 Type 2 diabetes mellitus without complications; F41.9 Anxiety disorder, unspecified; F32.9 Major depressive disorder, single episode, unspecified; J44.9 Chronic obstructive pulmonary disease, unspecified; E78.00 Pure hypercholesterolemia, unspecified; F17.200 Nicotine dependence, unspecified, uncomplicated; Z90.710 Acquired absence of both cervix and uterus; Z88.6 Allergy status to analgesic agent; Z88.8 Allergy status to other drugs, medicaments and biological substances; Z91.013 Allergy to seafood; Z79.899 Other long term (current) drug therapy; Z79.4 Long term (current) use of insulin
CPT/HCPCS: 99282

== ENCOUNTER 2021-02-05 09:20 | Outpatient (CLI) | payer MEDICARE ==
[2021-02-05 09:49] LABS: Bacteria,Urine 1+ /HPF (Negative); Bilirubin,Urine NEG (Negative); Blood,Urine MOD (Negative); Color,Urine Yellow (Yellow); Mucus,Urine 1+ /HPF; Protein,Urine >500 mg/dL (Negative); Urobilinogen,Urine < 2.0 mg/dL (<2.0)
[2021-02-05 10:09] LABS: Calcium 9.2 mg/dL (8.4-10.2); Chol/HDL Ratio 3.28 %
--- NOTE | 2021-02-05 11:37 | XRay Report ---
BILATERAL KNEE 5 VIEW(S) INDICATION / CLINICAL INFORMATION: BILATERAL KNEE PAIN COMPARISON: None available. FINDINGS: BONES / JOINT(S): No acute fracture or subluxation. No significant arthritis. No significant joint ef fusion. No alignment abnormality. SOFT TISSUES: No significant abnormality. ADDITIONAL FINDINGS: None. Signer Name: Lisa Avila MD Signed: 02/05/2021 11:33 AM Workstation Name: [id number]
== END 2021-02-05 09:21 | disposition home or self-care (01) ==
LOC: LAB 09:20
PROVIDERS: ATTEND Anesthesiology
DX: E78.5 Hyperlipidemia, unspecified (principal); N39.0 Urinary tract infection, site not specified; N28.9 Disorder of kidney and ureter, unspecified; M25.562 Pain in left knee; M25.561 Pain in right knee
CPT/HCPCS: 36415; 80048; 80061; 81001; 87076; 87086; 87186

== ENCOUNTER 2021-03-24 20:55 | Emergency (ER) | payer MEDICARE ==
[2021-03-25] MEDS ORDERED: HYDROcodone/ACETAMINOPHEN 5-325 MG TAB PO STA (04:08)
[2021-03-25 04:49] LABS: Hematocrit 34.7 % (30.3-42.9); Hemoglobin 11.1 gm/dl (10.1-14.3); Mean Corpuscular HGB Conc 32 % (30-34); Mean Corpuscular Volume 101 fl (79-97); Platelet Count 172 K/mm3 (140-440); Red Blood Count 3.44 M/mm3 (3.65-5.03); Red Cell Distribution Width 15.1 % (13.2-15.2)
[2021-03-25 05:08] LABS: Alanine Aminotransferase 31 units/L (7-56); Albumin 3.5 g/dL (3.9-5)
[2021-03-25 05:14] LABS: Bilirubin,Direct < 0.2 mg/dL (0-0.2)
[2021-03-25 06:47] LABS: Total Cells Counted 100
[2021-03-25 06:48] LABS: Anisocytosis 1+; Band Neutrophils # (Manual) 0.2 K/mm3; Platelet Estimate Consistent w Auto
[2021-03-25 06:49] LABS: Bacteria,Urine 1+ /HPF (Negative); Bilirubin,Urine NEG (Negative); Blood,Urine SM (Negative); Color,Urine Yellow (Yellow); Mucus,Urine FEW /HPF; Urobilinogen,Urine < 2.0 mg/dL (<2.0)
[2021-03-25 06:50] LABS: HCG Qualitative,Urine Negative (Negative)
[2021-03-25 07:03] LABS: Protein,Urine >500 mg/dL (Negative)
--- NOTE | 2021-03-25 07:40 | Emergency Department Report ---
ED Female HPI - General Chief complaint: Abdominal Pain Stated complaint: ABD PAIN Time Seen by Provider: 03/25/21 04:03 Source: patient Mode of arrival: Ambulatory Limitations: No Limitations - History of Present Illness Initial comments: This 41-year-old obese female with type 1 diabetes with an insulin pump and continuous insulin monitor presents emerge department complaining of a 1 week history of progressively worsening dysuria associated with pelvic cramping and pain across her lower pelvic area radiates to her flank off and on of an unknown etiology she also reports having a odor but no vaginal discharge no suspicion for STD. Ports no fever, chills, sweats. MD Complaint: dysuria Radiation: suprapubic Severity: moderate Quality: cramping, sharp, dull Improves with: urination, menstrual period Worsens with: urination Are you Now?: No - Related Data Home Medications Medication Instructions Recorded Confirmed Last Taken Abacavir/Dolutegravir/Lamivudi 1 each PO DAILY 07/10/15 08/11/20 09/08/17 [Triumeq 600-50-300 mg Tablet] Doxepin 25 10/22/20 Unknown Insulin Lispro-Aabc [Lyumjev 10/22/20 Unknown Kwikpen U-100] Lispro Insulin 1000units 10/22/20 Unknown Previous Rx's Medication Instructions Recorded Last Taken Type Albuterol Mdi (or & Nicu Only) 2 puff IH QID PRN #8.5 gram 04/25/19 Unknown Rx [ProAir HFA Inhaler] Gabapentin [Neurontin] 800 mg PO TID #90 10/28/20 Unknown Rx Insulin NPH/Regular [NovoLIN 70/30] 25 unit SUB-Q BIDDIAB #2 vial 10/28/20 Unknown Rx Losartan [Cozaar] 100 mg PO QDAY #90 10/28/20 Unknown Rx Ibuprofen [Motrin 800 MG tab] 800 mg PO Q8HR PRN #20 tablet 12/18/20 Unknown Rx Fluconazole [Diflucan TAB] 200 mg PO QDAY #2 tablet 01/09/21 Unknown Rx HYDROcodone/APAP 5-325 [[place] 1 each PO Q6HR PRN #10 tablet 01/09/21 Unknown Rx 5-325 mg TAB] Ondansetron [Zofran ODT TAB] 4 mg PO Q8HR PRN #10 tab.rapdis 01/09/21 Unknown Rx cephALEXin [Keflex] 500 mg PO Q6HR #40 capsule 01/09/21 Unknown Rx Nitrofurantoin [place]/M-Cryst 100 mg PO Q12HR 7 Days #14 capsule 01/30/21 Unknown Rx [Macrobid CAP] traMADoL [Ultram 50 MG tab] 50 mg PO Q6HR PRN #10 tablet 01/30/21 Unknown Rx Nitrofurantoin [place]/M-Cryst 100 mg PO Q12HR #20 capsule 03/25/21 Unknown Rx [Macrobid CAP] Phenazopyridine [Pyridium] 200 mg PO TID #9 tab 03/25/21 Unknown Rx Allergies Allergy/AdvReac Type Severity Reaction Status Date / Time iodine Allergy Swelling Verified 03/24/21 23:37 sulfamethoxazole Allergy Rash Verified 03/24/21 23:37 [From Bactrim] trimethoprim [From Bactrim] Allergy Rash Verified 03/24/21 23:37 metformin AdvReac Nausea Verified 03/24/21 23:37 seafood Allergy Rash Uncoded 01/30/21 11:16 ED Review of Systems ROS: Stated complaint: ABD PAIN Other details as noted in HPI Comment: All other systems reviewed and negative ED Past Medical Hx - Past Medical History Hx Hypertension: Yes Hx Heart Attack/AMI: No Hx Congestive Heart Failure: No Hx Diabetes: Yes Hx Liver Disease: No Hx Renal Disease: Yes Hx Seizures: No Hx Psychiatric Treatment: Yes (anxiety depression) Hx Asthma: Yes Hx COPD: Yes Hx HIV: Yes Additional medical history: HIGH CHOLESTEROL - Surgical History Hx Pacemaker: No Hx Internal Defibrillator: No Hx Cholecystectomy: Yes Additional Surgical History: d&c x1, insulin pump placement, TOTAL HYSTERECTOMY, boil removal to R inner thigh - Social History Smoking Status: Current Every Day Smoker Substance Use Type: None - Medications Home Medications: Home Medications Medication Instructions Recorded Confirmed Last Taken Type Abacavir/Dolutegravir/Lamivudi 1 each PO DAILY 07/10/15 08/11/20 09/08/17 History [Triumeq 600-50-300 mg Tablet] Albuterol Mdi (or & Nicu Only) 2 puff IH QID PRN #8.5 gram 04/25/19 08/11/20 Unknown Rx [ProAir HFA Inhaler] Doxepin 25 10/22/20 Unknown History Insulin Lispro-Aabc [Lyumjev 10/22/20 Unknown History Kwikpen U-100] Lispro Insulin 1000units 10/22/20 Unknown History Gabapentin [Neurontin] 800 mg PO TID #90 10/28/20 Unknown Rx Insulin NPH/Regular [NovoLIN 70/30] 25 unit SUB-Q BIDDIAB #2 vial 10/28/20 Unknown Rx Losartan [Cozaar] 100 mg PO QDAY #90 10/28/20 Unknown Rx Ibuprofen [Motrin 800 MG tab] 800 mg PO Q8HR PRN #20 tablet 12/18/20 Unknown Rx Fluconazole [Diflucan TAB] 200 mg PO QDAY #2 tablet 01/09/21 Unknown Rx HYDROcodone/APAP 5-325 [[place] 1 each PO Q6HR PRN #10 tablet 01/09/21 Unknown Rx 5-325 mg TAB] Ondansetron [Zofran ODT TAB] 4 mg PO Q8HR PRN #10 tab.rapdis 01/09/21 Unknown Rx cephALEXin [Keflex] 500 mg PO Q6HR #40 capsule 01/09/21 Unknown Rx Nitrofurantoin [place]/M-Cryst 100 mg PO Q12HR 7 Days #14 capsule 01/30/21 Unknown Rx [Macrobid CAP] traMADoL [Ultram 50 MG tab] 50 mg PO Q6HR PRN #10 tablet 01/30/21 Unknown Rx Nitrofurantoin [place]/M-Cryst 100 mg PO Q12HR #20 capsule 03/25/21 Unknown Rx [Macrobid CAP] Phenazopyridine [Pyridium] 200 mg PO TID #9 tab 03/25/21 Unknown Rx ED Physical Exam - General Limitations: No Limitations General appearance: alert, in no apparent distress - Head Head exam: Present: atraumatic, normocephalic - Eye Eye exam: Present: normal appearance - ENT ENT exam: Present: mucous membranes moist - Neck Neck exam: Present: normal inspection - Respiratory Respiratory exam: Present: normal lung sounds bilaterally. Absent: respiratory distress - Cardiovascular Cardiovascular Exam: Present: regular rate, normal rhythm. Absent: systolic murmur, diastolic murmur, rubs, gallop - GI/Abdominal GI/Abdominal exam: Present: soft, tenderness (Suprapubic region), normal bowel sounds - Extremities Exam Extremities exam: Present: normal inspection - Back Exam Back exam: Present: normal inspection. Absent: CVA tenderness (R), CVA tenderness (L) - Neurological Exam Neurological exam: Present: alert, oriented X3, CN II-XII intact - Psychiatric Psychiatric exam: Present: normal affect, normal mood - Skin Skin exam: Present: warm, dry, intact, normal color. Absent: rash ED Course Vital Signs 03/24/21 23:31 Temperature 98.7 F Pulse Rate 96 H Respiratory 18 Rate O2 Sat by Pulse 99 Oximetry ED Medical Decision Making - Lab Data Result diagrams: 03/25/21 04:22 03/25/21 04:22 - Medical Decision Making This patient presents to the emergency department with symptoms consistent with acute uncomplicated cystitis. No systemic symptoms. Not septic. She is well- appearing. Low suspicion for acute pyelonephritis given the lack of fever, CVA tenderness, or systemic features. Low suspicion for for kidney stone or infected stone. Not in age range for and her history and and pres entation are complicated. No no indications for labs or imaging at this time. Critical care attestation.: If time is entered above; I have spent that time in minutes in the direct care of this critically ill patient, excluding procedure time. ED Disposition Clinical Impression: Hyperglycemia due to type 1 diabetes mellitus Disposition: 01 HOME / SELF CARE / HOMELESS Is pt being admited?: No Does the pt Need Aspirin: No Condition: Stable Instructions: Urinalysis Test, Urinary Tract Infection, Adult, Diabetes Mellitus Type 2 in Adults (ED), Abdominal Pain (ED) Additional Instructions: Please be sure to utilize your continuous blood sugar monitor and your insulin pump more aggressively due to to better manage your hyperglycemia. This is a culprit to treat gram urinary tract infections for which you are expressing today and is the culprit for the symptoms you are experiencing as well. Please take the medication its entirety and follow-up with your primary care provider to ensure that you have eradicated this urinary tract infection. Prescriptions: Nitrofurantoin [place]/M-Cryst [Macrobid CAP] 100 mg PO Q12HR #20 capsule Phenazopyridine [Pyridium] 200 mg PO TID #9 tab Referrals: OMAIRA CONTRERAS MD [Primary Care Provider] - 3-5 Days
[2021-03-25 08:05] VITALS: BP 194/89
== END 2021-03-25 08:05 | disposition home or self-care (01) ==
LOC: ED 20:55
DX: E11.65 Type 2 diabetes mellitus with hyperglycemia (principal); I10 Essential (primary) hypertension; J45.909 Unspecified asthma, uncomplicated; Z90.49 Acquired absence of other specified parts of digestive tract; F17.200 Nicotine dependence, unspecified, uncomplicated; Z91.041 Radiographic dye allergy status; Z88.2 Allergy status to sulfonamides; Z88.8 Allergy status to other drugs, medicaments and biological substances; Z91.013 Allergy to seafood
CPT/HCPCS: 36415; 80048; 80076; 81001; 81025; 83690; 85007; 85025; 87086; 99283

== ENCOUNTER 2021-05-23 22:00 | Emergency (ER) | payer MEDICARE ==
[2021-05-24 00:09] VITALS: BP 182/97
[2021-05-24] MEDS ORDERED: SODIUM CHLORIDE 0.9% 1000 ML 1,000 ML IV ONE (00:12)
--- NOTE | 2021-05-24 00:37 | Event Note ---
ED Screening Note Date of service: 05/24/21 Time: 00:35 ED Screening Note: Patient 41-year-old female with history of diabetes type 2 hypertension HIV who presents for generalized body pains abdominal pain and near syncopal episode today. States blood glucose was 300 in the field. Patient denies fevers or chills no nausea vomiting no diarrhea. Denies chest pain at this time. Symptoms are exacerbated by activity. Symptoms are relieved by nothing tried. This initial assessment/diagnostic orders/clinical plan/treatment(s) is/are subject to change based on patients health status, clinical progression and re- assessment by fellow clinical providers in the ED. Further treatment and workup at subsequent clinical providers discretion. Patient/guardian urged not to elope from the ED as their condition may be serious if not clinically assessed and managed. Initial orders include: ekg, trop, cmp, cbc, ua, mariah ph, ivfs. cxr
[2021-05-24 00:52] LABS: Basophils % (Auto) 0.2 % (0.0-1.8); Eosinophils # (Auto) 0.2 K/mm3 (0.0-0.4); Eosinophils % (Auto) 2.3 % (0.0-4.3); Hematocrit 31.7 % (30.3-42.9); Lymphocytes # (Auto) 3.3 K/mm3 (1.2-5.4); Lymphocytes % (Auto) 37.6 % (13.4-35.0); Mean Corpuscular HGB Conc 35 % (30-34); Mean Corpuscular Volume 101 fl (79-97); Monocytes # (Auto) 0.6 K/mm3 (0.0-0.8); Monocytes % (Auto) 6.4 % (0.0-7.3); Platelet Count 183 K/mm3 (140-440); Red Blood Count 3.12 M/mm3 (3.65-5.03); Red Cell Distribution Width 15.3 % (13.2-15.2)
[2021-05-24 01:10] LABS: Albumin 3.6 g/dL (3.9-5); Calcium 9.2 mg/dL (8.4-10.2)
[2021-05-24 02:12] LABS: Bacteria,Urine 2+ /HPF (Negative); Bilirubin,Urine NEG (Negative); Blood,Urine SM (Negative); Color,Urine Yellow (Yellow); Mucus,Urine FEW /HPF; Urobilinogen,Urine < 2.0 mg/dL (<2.0)
[2021-05-24 02:14] LABS: Protein,Urine >500 mg/dL (Negative)
[2021-05-24 02:15] LABS: WBC,Urine > 182.0 /HPF (0.0-6.0)
[2021-05-24 02:16] LABS: HCG Qualitative,Urine Negative (Negative)
--- NOTE | 2021-05-24 02:52 | XRay Report ---
CHEST 2 VIEWS INDICATION / CLINICAL INFORMATION: syncope. COMPARISON: None available. FINDINGS: SUPPORT DEVICES: None. HEART / MEDIASTINUM: No significant abnormality. LUNGS / PLEURA: No significant pulmonary or pleural abnormality. No pneumothorax. ADDITIONAL FINDINGS: No significant additional findings. IMPRESSION: 1. No active cardiopulmonary disease. Signer Name: Arthur Millard II, MD Signed: 05/24/2021 2:48 AM Workstation Name: [id number]
[2021-05-24] MEDS ORDERED: KETOROLAC 30 MG/1 ML INJ IV ONE (03:12)
[2021-05-24] MEDS ORDERED: ONDANSETRON 4 MG/2 ML INJ IV ONE ×2 (03:12→05:32)
[2021-05-24] MEDS ORDERED: cefTRIAXone/NS 1 GM/50 ML 1 GM/50 ML BAG IV ONE (03:12)
[2021-05-24 03:15] LABS: Chol/HDL Ratio 3.39 %; HDL Cholesterol 61 mg/dL (40-59); LDL Cholesterol,Direct TNR mg/dL (50-130)
--- NOTE | 2021-05-24 04:54 | Emergency Department Report ---
ED General Adult HPI - General Chief complaint: Abdominal Pain Stated complaint: ABD PAIN BLOOD IN URINE Time Seen by Provider: 05/24/21 04:49 Source: patient Mode of arrival: Ambulatory Limitations: No Limitations - History of Present Illness Initial comments: Patient 41-year-old female who presents for bilateral flank pain radiating to suprapubic. Patient recently treated for UTI. Not sure if she took all medications. Patient denies fevers or chills nausea without vomiting. There is no vaginal discharge there is been no fall injury or trauma. Patient denies history of renal stones. Patient is tolerating p.o. intake. However patient states pain is 6/10. Patient denies relieving factors. Severity scale (0 -10): 6 - Related Data Home Medications Medication Instructions Recorded Confirmed Last Taken Abacavir/Dolutegravir/Lamivudi 1 each PO DAILY 07/10/15 08/11/20 09/08/17 [Triumeq 600-50-300 mg Tablet] Doxepin 25 10/22/20 Unknown Insulin Lispro-Aabc [Lyumjev 10/22/20 Unknown Kwikpen U-100] Lispro Insulin 1000units 10/22/20 Unknown Previous Rx's Medication Instructions Recorded Last Taken Type Albuterol Mdi (or & Nicu Only) 2 puff IH QID PRN #8.5 gram 04/25/19 Unknown Rx [ProAir HFA Inhaler] Gabapentin [Neurontin] 800 mg PO TID #90 10/28/20 Unknown Rx Insulin NPH/Regular [NovoLIN 70/30] 25 unit SUB-Q BIDDIAB #2 vial 10/28/20 Unknown Rx Losartan [Cozaar] 100 mg PO QDAY #90 10/28/20 Unknown Rx Ibuprofen [Motrin 800 MG tab] 800 mg PO Q8HR PRN #20 tablet 12/18/20 Unknown Rx Fluconazole [Diflucan TAB] 200 mg PO QDAY #2 tablet 01/09/21 Unknown Rx HYDROcodone/APAP 5-325 [[place] 1 each PO Q6HR PRN #10 tablet 01/09/21 Unknown Rx 5-325 mg TAB] Ondansetron [Zofran ODT TAB] 4 mg PO Q8HR PRN #10 tab.rapdis 01/09/21 Unknown Rx cephALEXin [Keflex] 500 mg PO Q6HR #40 capsule 01/09/21 Unknown Rx Nitrofurantoin [place]/M-Cryst 100 mg PO Q12HR 7 Days #14 capsule 01/30/21 Unknown Rx [Macrobid CAP] traMADoL [Ultram 50 MG tab] 50 mg PO Q6HR PRN #10 tablet 01/30/21 Unknown Rx Nitrofurantoin [place]/M-Cryst 100 mg PO Q12HR #20 capsule 03/25/21 Unknown Rx [Macrobid CAP] Phenazopyridine [Pyridium] 200 mg PO TID #9 tab 03/25/21 Unknown Rx Fluconazole [Diflucan TAB] 200 mg PO ONCE #1 tablet 05/24/21 Unknown Rx HYDROcodone/APAP 5-325 [[place] 1 each PO Q6HR PRN #12 tablet 05/24/21 Unknown Rx 5-325 mg TAB] levoFLOXacin [Levaquin TAB] 500 mg PO QDAY #7 tablet 05/24/21 Unknown Rx Allergies Allergy/AdvReac Type Severity Reaction Status Date / Time iodine Allergy Swelling Verified 03/24/21 23:37 sulfamethoxazole Allergy Rash Verified 03/24/21 23:37 [From Bactrim] trimethoprim [From Bactrim] Allergy Rash Verified 03/24/21 23:37 metformin AdvReac Nausea Verified 03/24/21 23:37 seafood Allergy Rash Uncoded 01/30/21 11:16 ED Review of Systems ROS: Stated complaint: ABD PAIN BLOOD IN URINE Other details as noted in HPI Constitutional: malaise. denies: chills, fever Eyes: denies: eye pain, eye discharge, vision change ENT: denies: ear pain, throat pain Respiratory: no symptoms reported Cardiovascular: as per HPI Endocrine: no symptoms reported Gastrointestinal: abdominal pain, nausea. denies: vomiting, diarrhea, constipation Genitourinary: urgency, dysuria, frequency. denies: hematuria, discharge Musculoskeletal: back pain (Bilateral flank) Skin: denies: rash, lesions Neurological: denies: headache, weakness, paresthesias Psychiatric: denies: anxiety, depression Hematological/Lymphatic: denies: easy bleeding, easy bruising ED Past Medical Hx - Past Medical History Previous Medical History?: Yes Hx Hypertension: Yes Hx Heart Attack/AMI: No Hx Congestive Heart Failure: No Hx Diabetes: Yes Hx Liver Disease: No Hx Renal Disease: Yes Hx Seizures: No Hx Psychiatric Treatment: Yes (anxiety depression) Hx Asthma: Yes Hx COPD: Yes Hx HIV: Yes Additional medical history: HIGH CHOLESTEROL - Surgical History Past Surgical History?: Yes Hx Pacemaker: No Hx Internal Defibrillator: No Hx Cholecystectomy: Yes Additional Surgical History: d&c x1, insulin pump placement, TOTAL HYSTERECTOMY, boil removal to R inner thigh - Social History Smoking Status: Current Every Day Smoker Substance Use Type: None - Medications Home Medications: Home Medications Medication Instructions Recorded Confirmed Last Taken Type Abacavir/Dolutegravir/Lamivudi 1 each PO DAILY 07/10/15 08/11/20 09/08/17 History [Triumeq 600-50-300 mg Tablet] Albuterol Mdi (or & Nicu Only) 2 puff IH QID PRN #8.5 gram 04/25/19 08/11/20 Unk nown Rx [ProAir HFA Inhaler] Doxepin 25 10/22/20 Unknown History Insulin Lispro-Aabc [Lyumjev 10/22/20 Unknown History Kwikpen U-100] Lispro Insulin 1000units 10/22/20 Unknown History Gabapentin [Neurontin] 800 mg PO TID #90 10/28/20 Unknown Rx Insulin NPH/Regular [NovoLIN 70/30] 25 unit SUB-Q BIDDIAB #2 vial 10/28/20 Unknown Rx Losartan [Cozaar] 100 mg PO QDAY #90 10/28/20 Unknown Rx Ibuprofen [Motrin 800 MG tab] 800 mg PO Q8HR PRN #20 tablet 12/18/20 Unknown Rx Fluconazole [Diflucan TAB] 200 mg PO QDAY #2 tablet 01/09/21 Unknown Rx HYDROcodone/APAP 5-325 [[place] 1 each PO Q6HR PRN #10 tablet 01/09/21 Unknown Rx 5-325 mg TAB] Ondansetron [Zofran ODT TAB] 4 mg PO Q8HR PRN #10 tab.rapdis 01/09/21 Unknown Rx cephALEXin [Keflex] 500 mg PO Q6HR #40 capsule 01/09/21 Unknown Rx Nitrofurantoin [place]/M-Cryst 100 mg PO Q12HR 7 Days #14 capsule 01/30/21 Unknown Rx [Macrobid CAP] traMADoL [Ultram 50 MG tab] 50 mg PO Q6HR PRN #10 tablet 01/30/21 Unknown Rx Nitrofurantoin [place]/M-Cryst 100 mg PO Q12HR #20 capsule 03/25/21 Unknown Rx [Macrobid CAP] Phenazopyridine [Pyridium] 200 mg PO TID #9 tab 03/25/21 Unknown Rx Fluconazole [Diflucan TAB] 200 mg PO ONCE #1 tablet 05/24/21 Unknown Rx HYDROcodone/APAP 5-325 [[place] 1 each PO Q6HR PRN #12 tablet 05/24/21 Unknown Rx 5-325 mg TAB] levoFLOXacin [Levaquin TAB] 500 mg PO QDAY #7 tablet 05/24/21 Unknown Rx ED Physical Exam - General Limitations: No Limitations General appearance: alert, in no apparent distress - Head Head exam: Present: normocephalic, normal inspection - Eye Eye exam: Present: normal appearance, EOMI Pupils: Present: normal accommodation - ENT ENT exam: Present: mucous membranes moist - Neck Neck exam: Present: normal inspection, full ROM. Absent: tenderness - Respiratory Respiratory exam: Present: normal lung sounds bilaterally. Absent: respiratory distress, wheezes - Cardiovascular Cardiovascular Exam: Present: regular rate, normal rhythm, normal heart sounds. Absent: systolic murmur, diastolic murmur, rubs, gallop - GI/Abdominal GI/Abdominal exam: Present: soft, normal bowel sounds. Absent: distended, tenderness, guarding, rebound, rigid, bruit, hernia - Rectal Rectal exam: Present: deferred - Extremities Exam Extremities exam: Present: normal inspection, full ROM - Back Exam Back exam: Present: normal inspection, full ROM, CVA tenderness (R), CVA tenderness (L) - Neurological Exam Neurological exam: Present: alert, oriented X3, CN II-XII intact, normal gait - Expanded Neurological Exam Expanded Patient oriented to: Present: person, place, time Best Eye Response (Sweetie): (4) open spontaneously Best Motor Response ([place]): (6) obeys commands Best Verbal Response ([place]): (5) oriented [place] Total: 15 - Psychiatric Psychiatric exam: Present: normal affect, normal mood - Skin Skin exam: Present: warm, dry, intact, normal color. Absent: rash ED Course Vital Signs 05/24/21 05/24/21 05/24/21 00:05 03:30 05:38 Temperature 98.6 F Pulse Rate 99 H Respiratory 20 14 14 Rate Blood Pressure 182/97 [Right] O2 Sat by Pulse 96 Oximetry ED Medical Decision Making - Lab Data Result diagrams: 05/24/21 00:32 05/24/21 00:32 Labs 05/24/21 05/24/21 05/24/21 00:32 00:32 00:32 WBC 8.9 RBC 3.12 L Hgb 11.0 Hct 31.7 MCV 101 H MCH 35 H MCHC 35 H RDW 15.3 H Plt Count 183 Lymph % (Auto) 37.6 H [place] % (Auto) 6.4 Eos % (Auto) 2.3 Baso % (Auto) 0.2 Lymph # (Auto) 3.3 [place] # (Auto) 0.6 Eos # (Auto) 0.2 Baso # (Auto) 0.0 Seg Neutrophils % 53.5 Seg Neutrophils # 4.7 VBG pH 7.332 Sodium 135 L Potassium 4.5 Chloride 102.3 Carbon Dioxide 20 L Anion Gap 17 BUN 33 H Creatinine 2.3 H Estimated GFR 23 BUN/Creatinine Ratio 14 Glucose 322 H Calcium 9.2 Total Bilirubin 0.20 AST 25 ALT 38 Alkaline Phosphatase 111 Troponin T Total Protein 7.3 Albumin 3.6 L Albumin/Globulin Ratio 1.0 Triglycerides Cholesterol LDL Cholesterol Direct HDL Cholesterol Cholesterol/HDL Ratio Urine Color Urine Turbidity Urine pH Ur Specific [place] Urine Protein Urine Glucose (UA) Urine Ketones Urine Blood Urine Nitrite Urine Bilirubin Urine Urobilinogen Ur Leukocyte Esterase Urine WBC (Auto) Urine RBC (Auto) U Epithel Cells (Auto) Urine Bacteria (Auto) Urine WBC Clumps Urine Mucus Urine Yeast (Budding) Urine HCG, Qual 05/24/21 05/24/21 05/24/21 00:32 04:04 Unknown WBC RBC Hgb Hct MCV MCH MCHC RDW Plt Count Lymph % (Auto) [place] % (Auto) Eos % (Auto) Baso % (Auto) Lymph # (Auto) [place] # (Auto) Eos # (Auto) Baso # (Auto) Seg Neutrophils % Seg Neutrophils # VBG pH Sodium Potassium Chloride Carbon Dioxide Anion Gap BUN Creatinine Estimated GFR BUN/Creatinine Ratio Glucose Calcium Total Bilirubin AST ALT Alkaline Phosphatase Troponin T 0.035 H 0.035 H Total Protein Albumin Albumin/Globulin Ratio Triglycerides 418 H Cholesterol 207 H LDL Cholesterol Direct TNR HDL Cholesterol 61 H Cholesterol/HDL Ratio 3.39 Urine Color Yellow Urine Turbidity Cloudy Urine pH 6.0 Ur Specific [place] 1.019 Urine Protein >500 Urine Glucose (UA) 50 Urine Ketones Neg Urine Blood Sm Urine Nitrite Neg Urine Bilirubin Neg Urine Urobilinogen < 2.0 Ur Leukocyte Esterase Mod Urine WBC (Auto) > 182.0 H Urine RBC (Auto) 23.0 U Epithel Cells (Auto) 4.0 Urine Bacteria (Auto) 2+ Urine WBC Clumps 2+ Urine Mucus Few Urine Yeast (Budding) 1+ Urine HCG, Qual Negative - Radiology Data Radiology results: report reviewed, image reviewed CHEST 2 VIEWS INDICATION / CLINICAL INFORMATION: syncope. COMPARISON: None available. FINDINGS: SUPPORT DEVICES: None. HEART / MEDIASTINUM: No significant abnormality. LUNGS / PLEURA: No significant pulmonary or pleural abnormality. No pneumothora x. ADDITIONAL FINDINGS: No significant additional findings. IMPRESSION: 1. No active cardiopulmonary disease. Signer Name: Alma Millard II, MD Signed: 05/24/2021 2:48 AM Workstation Name: [id number] Transcribed By: ANTIONE Dictated By: ALMA MILLARD II, MD Electronically Authenticated By: ALMA MILLARD II, MD Signed Date/Time: 05/24/21247 DD/ 7 TD/TT: CT ABDOMEN AND PELVIS WITHOUT CONTRAST INDICATION / CLINICAL INFORMATION: Pt complains of abdominal pain with Hematuria (Pyelo vs Stone(s). TECHNIQUE: Axial CT images were obtained through the abdomen and pelvis without IV contrast. All CT scans at this location are performed using CT dose reduction for ALARA by means of automated exposure control. COMPARISON: CT of abdomen and pelvis 01/09/2021 FINDINGS: LOWER CHEST: No significant abnormality of the imaged chest. LIVER: No significant abnormality. GALLBLADDER: Cholecystectomy. BILE DUCTS: No significant abnormality. SPLEEN: No significant abnormality. PANCREAS: No significant abnormality. ADRENALS: No significant abnormality. RIGHT KIDNEY / URETER: Mild perinephric fat stranding. Small cyst posterior mid right kidney measures 2.4 cm. LEFT KIDNEY / URETER: Multiple upper pole nephroliths of the left kidney. Additionally there are collections of air within the left renal collecting system. Perinephric fat stranding stable. No additional urolithiasis. STOMACH / DUODENUM / SMALL BOWEL: No significant abnormality. COLON: No significant abnormality. APPENDIX: No significant abnormality. PERITONEUM: No free air or free fluid are present within the abdomen or pelvis. LYMPH NODES: No significant adenopathy. AORTA / ARTERIES: No significant abnormality. IVC / VEINS: No significant abnormality. URINARY BLADDER: Small amount of air within the urinary bladder. Bladder is partially decompressed. REPRODUCTIVE ORGANS: Uterus is absent. No significant adnexal abnormality. ADDITIONAL ABDOMINAL/PELVIC FINDINGS: Mild diastases of the anterior abdominal wall. SKELETAL SYSTEM: No significant abnormality. IMPRESSION: 1. Small collections of air within the urinary bladder and left renal collecting system. Correlation with any recent instrumentation recommended. Perinephric stranding bilaterally present. Acute pyelonephritis not excluded. Correlation with urinalysis and culture recommended. Small bubbles of air within the left calyceal system with no evidence of gas within the renal stroma or renal fossa to suggest emphysematous pyelonephritis. Signer Name: Alma Millard II, MD Signed: 05/24/2021 5:29 AM Workstation Name: [id number] Transcribed By: ANTIONE Dictated By: ALMA MILLARD II, MD Electronically Authenticated By: ALMA MILLARD II, MD Signed Date/Time: 05/24/21528 DD/ 2 TD/TT: - Medical Decision Making CT noted for pyelonephritis, UA noted for WBCs leukocytes bacteria patient treated with antibiotics IV fluids in ED pain is improved. Plan DC with prescriptions. Continue to follow-up with urology as scheduled. Continue to follow-up with primary care as scheduled. Return to emergency department if symptoms worsen or unable to tolerate p.o. Patient verbalized agreement and understanding with discharge plan. Patient DC'd home in stable condition at this time. She is currently tolerating p.o. intake without symptoms. Critical care attestation.: If time is entered above; I have spent that time in minutes in the direct care of this critically ill patient, excluding procedure time. ED Disposition Clinical Impression: Pyelonephritis Disposition: 01 HOME / SELF CARE / HOMELESS Is pt being admited?: No Does the pt Need Aspirin: No Condition: Stable Instructions: Abdominal Pain (ED), Pyelonephritis, Adult Additional Instructions: Take medications as prescribed, follow-up with your doctor in 2 to 3 days. Return to emergency department should symptoms worsen. Prescriptions: Fluconazole [Diflucan TAB] 200 mg PO ONCE #1 tablet levoFLOXacin [Levaquin TAB] 500 mg PO QDAY #7 tablet HYDROcodone/APAP 5-325 [[place] 5-325 mg TAB] 1 each PO Q6HR PRN #12 tablet PRN Reason: Pain Referrals: ELLIS HADDAD MD [Staff Physician] - 3-5 Days OMAIRA CONTRERAS MD [Staff Physician] - 3-5 Days Forms: Work/School Release Form(ED) Time of Disposition: 06:46
[2021-05-24] MEDS ORDERED: MORPHINE 4 MG/1 ML INJ IV ONE (05:32)
--- NOTE | 2021-05-24 05:34 | Cat Scan Report ---
CT ABDOMEN AND PELVIS WITHOUT CONTRAST INDICATION / CLINICAL INFORMATION: Pt complains of abdominal pain with Hematuria (Pyelo vs Stone(s). TECHNIQUE: Axial CT images were obtained through the abdomen and pelvis without IV contrast. All CT scans at this location are performed using CT dose reduction for ALARA by means of automated exposure control. COMPARISON: CT of abdomen and pelvis 01/09/2021 FINDINGS: LOWER CHEST: No significant abnormality of the imaged chest. LIVER: No significant abnormality. GALLBLADDER: Cholecystectomy. BILE DUCTS: No significant abnormality. SPLEEN: No significant abnormality. PANCREAS: No significant abnormality. ADRENALS: No significant abnormality. RIGHT KIDNEY / URETER: Mild perinephric fat stranding. Small cyst posterior mid right kidney measures 2.4 cm. LEFT KIDNEY / URETER: Multiple upper pole nephroliths of the left kidney. Additionally there are wei ections of air within the left renal collecting system. Perinephric fat stranding stable. No addition al urolithiasis. STOMACH / DUODENUM / SMALL BOWEL: No significant abnormality. COLON: No significant abnormality. APPENDIX: No significant abnormality. PERITONEUM: No free air or free fluid are present within the abdomen or pelvis. LYMPH NODES: No significant adenopathy. AORTA / ARTERIES: No significant abnormality. IVC / VEINS: No significant abnormality. URINARY BLADDER: Small amount of air within the urinary bladder. Bladder is partially decompressed. REPRODUCTIVE ORGANS: Uterus is absent. No significant adnexal abnormality. ADDITIONAL ABDOMINAL/PELVIC FINDINGS: Mild diastases of the anterior abdominal wall. SKELETAL SYSTEM: No significant abnormality. IMPRESSION: 1. Small collections of air within the urinary bladder and left renal collecting system. Correlation with any recent instrumentation recommended. Perinephric stranding bilaterally present. Acute pyelone phritis not excluded. Correlation with urinalysis and culture recommended. Small bubbles of air withi n the left calyceal system with no evidence of gas within the renal stroma or renal fossa to suggest emphysematous pyelonephritis. Signer Name: Arthur Millard II, MD Signed: 05/24/2021 5:29 AM Workstation Name: [id number]
--- NOTE | 2021-05-24 10:14 | Electrocardiograph Report ---
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
== END 2021-05-24 07:58 | disposition home or self-care (01) ==
LOC: ED 22:00
DX: N12 Tubulo-interstitial nephritis, not specified as acute or chronic (principal); I10 Essential (primary) hypertension; E11.9 Type 2 diabetes mellitus without complications; Z86.59 Personal history of other mental and behavioral disorders; J45.909 Unspecified asthma, uncomplicated; J44.9 Chronic obstructive pulmonary disease, unspecified; F17.200 Nicotine dependence, unspecified, uncomplicated; E78.00 Pure hypercholesterolemia, unspecified; Z21 Asymptomatic human immunodeficiency virus [HIV] infection status; Z90.49 Acquired absence of other specified parts of digestive tract; Z90.710 Acquired absence of both cervix and uterus; Z98.890 Other specified postprocedural states; Z88.1 Allergy status to other antibiotic agents; Z91.018 Allergy to other foods; Z91.013 Allergy to seafood; Z88.8 Allergy status to other drugs, medicaments and biological substances
CPT/HCPCS: 36415; 71046; 74176; 80053; 80061; 81001; 81025; 82805; 84484; 85025; 93005; 93010; 96361; 96365; 96375; 96376; 99284; J0696; J1885; J2270; J2405; J7030; 96360; Q0162

== ENCOUNTER 2021-09-05 12:49 | Emergency (ER) | payer MEDICARE ==
[2021-09-05 15:34] VITALS: BP 189/79
[2021-09-05] MEDS ORDERED: MORPHINE 4 MG/1 ML INJ IV ONE (21:21)
[2021-09-05] MEDS ORDERED: SODIUM CHLORIDE 0.9% 1000 ML 1,000 ML IV ONE (21:21)
[2021-09-05 22:13] LABS: Hematocrit 32.3 % (30.3-42.9); Hemoglobin 10.9 gm/dl (10.1-14.3); Mean Corpuscular HGB Conc 34 % (30-34); Mean Corpuscular Volume 103 fl (79-97); Red Blood Count 3.12 M/mm3 (3.65-5.03); Red Cell Distribution Width 14.3 % (13.2-15.2)
[2021-09-05] MEDS: ONDANSETRON 4 MG/2 ML INJ IV ONE ×2 (22:13→22:18)
[2021-09-05 22:14] LABS: Platelet Count 122 K/mm3 (140-440)
[2021-09-05] MEDS ORDERED: diphenhydrAMINE 50 MG/ML VIAL IV ONE (22:18)
[2021-09-05] MEDS ORDERED: METOCLOPRAMIDE 10 MG/2 ML INJ IV ONE (22:18)
[2021-09-05 22:21] LABS: Color,Urine Yellow (Yellow)
[2021-09-05 22:22] LABS: Bacteria,Urine 2+ /HPF (Negative); Bilirubin,Urine Negative (Negative); Blood,Urine Large (Negative); Mucus,Urine 2+ /HPF
[2021-09-05 22:23] LABS: Alanine Aminotransferase 23 units/L (7-56); Albumin 3.2 g/dL (3.9-5); BUN/Creatinine Ratio 8; Blood Urea Nitrogen 14 mg/dL (7-17); Calcium 9.1 mg/dL (8.4-10.2); Hemolysis Index 21
[2021-09-05 22:23] LABS: Protein,Urine >500 mg/dL (Negative); Urobilinogen,Urine < 2.0 mg/dL (<2.0)
[2021-09-05 22:56] LABS: Basophils % (Manual) 0 % (0.0-1.8); Total Cells Counted 100
[2021-09-05 22:57] LABS: Anisocytosis 1+; Macrocytosis 1+
[2021-09-05 22:58] LABS: Hypochromasia 1+; Platelet Estimate Consistent w Auto
--- NOTE | 2021-09-05 23:47 | Cat Scan Report ---
CT ABDOMEN AND PELVIS WITH CONTRAST INDICATION / CLINICAL INFORMATION: Lower abdominal pain, pelvic / vaginal abscess. TECHNIQUE: Axial CT images were obtained through the abdomen and pelvis after 100 cc Omnipaque [address] scans at this location are performed using CT dose reduction for ALARA by means of automated exposure control. COMPARISON: CT of abdomen and pelvis 05/24/2021 FINDINGS: LOWER CHEST: No significant abnormality of the imaged chest. LIVER: No focal lesion. No acute findings. GALLBLADDER / BILE DUCTS: Cholecystectomy. Biliary ducts grossly unremarkable. SPLEEN: No significant abnormality. PANCREAS: No significant abnormality. ADRENALS: No significant abnormality. KIDNEYS/URETERS: 1 mm nonobstructing stone medial right kidney. 2.5 cm cyst posterior medial right ki dney stable in appearance. Stable mild perinephric fat stranding right kidney. Left kidney demonstrat es multiple calyceal calcifications some of which have air surrounding them within the upper pole, ap pearing similar to prior study. Additional small collections of air are suggested within the anterior calyx mid left kidney. Stable minimal perinephric fat stranding around the left kidney. No left uret erolithiasis. STOMACH / DUODENUM / SMALL BOWEL: The stomach, duodenum, and small bowel demonstrate no significant a bnormality. No specific abnormality of the mesentery demonstrated. COLON: No significant abnormality. In the region of the vaginal cuff rectum is closely approximating the cuff without obvious adherence to the bladder wall. The bladder wall is inseparable from the vagi nal cuff superiorly. APPENDIX: No significant abnormality. PERITONEUM: Mild diastases of the anterior rectus muscles. Small fat-containing hernia to left midlin e upper abdomen. No free air or free fluid. LYMPH NODES: Borderline pericaval and aortocaval and pericaval lymph nodes, stable. Stable minimal pr ominence of bilateral inguinal lymph nodes. AORTA / ARTERIES: No significant abnormality. IVC / VEINS: No significant abnormality. URINARY BLADDER: Bladder wall thickening is present. Additional air present within the antidependent urinary bladder. REPRODUCTIVE ORGANS: Uterus is absent. No significant adnexal abnormality. ADDITIONAL ABDOMINAL/PELVIC FINDINGS: None. SKELETAL SYSTEM: No significant abnormality. IMPRESSION: 1. Small volume of air within the urinary bladder and left renal calyceal system similar in appearanc e prior study. Correlation with recent instrumentation or catheter placement recommended as vaginal v esicular fistula not excluded. 2. Bladder wall thickening and mild stable perinephric fat stranding bilaterally could reflect eviden ce of UTI/pyelonephritis. Correlation with urinalysis and culture are recommended. 3. Other findings as detailed. Signer Name: Arthur Millard II, MD Signed: 09/05/2021 11:42 PM Workstation Name: [id number]
[2021-09-06] MEDS ORDERED: cefTRIAXone/NS 1 GM/50 ML 1 GM/50 ML BAG IV ONE (00:10)
[2021-09-06] MEDS ORDERED: PROCHLORPERAZINE EDISYLATE 10 MG/2 ML VIAL IV ONE (00:10)
[2021-09-06] MEDS ORDERED: HYDROmorphone 1 MG/1 ML INJ IV ONE (00:10)
[2021-09-06] MEDS ORDERED: SODIUM CHLORIDE 0.9% 1000 ML 1,000 ML IV ONE ×2 (00:11→01:52)
--- NOTE | 2021-09-06 04:45 | Emergency Department Report ---
ED Abdominal Pain HPI - General Chief Complaint: Skin/Abscess/Foreign Body Stated Complaint: ABD PAIN/BOIL ON PRIVATE AREA Source: patient Mode of arrival: Ambulatory Limitations: Language Barrier - History of Present Illness Initial Comments: Patient is a 41-year-old female with a history of HIV, insulin- dependent diabetes, hypertension, stage III chronic kidney disease, asthma and COPD, hyperlipidemia, anxiety and depression and chronic recurrent hidradenitis suppurativa infections who presents to the ED with complaint of acute onset persistent diffuse low abdominal pain with intractable nausea and vomiting for the last 1 week. Patient also complains of painful swollen mild erythematous maculopapular rash on pubic area for the last 5 days. Patient states that in the last 3 days, her symptoms have worsened such that she has not been able to take her medications of poor food. Patient denies fever, chills, diarrhea, dysuria, urinary frequency and urgency, change in vision, dizziness, syncope, low back pain, sore throat, cough, chest pain or shortness of breath. MD Complaint: abdominal pain, other (nausea and vomiting; swollen painful erythematous rash on pelvic area with dicharge) -: Gradual, week(s) (1) Location: LLQ, RLQ, suprapubic, bilateral flank Radiation: bilateral flank, back (lower) Migration to: no migration Severity: severe Severity scale (0 -10): 8 Quality: aching, sharp Consistency: constant Improves With: nothing Worsens With: movement Associated Symptoms: denies other symptoms, nausea, vomiting, anorexia. denies: diarrhea, fever, chills, constipation, hematemesis, hematochezia, melena, syncope - Related Data Home Medications Medication Instructions Recorded Confirmed Last Taken Abacavir/Dolutegravir/Lamivudi 1 each PO DAILY 07/10/15 08/11/20 09/08/17 [Triumeq 600-50-300 mg Tablet] Doxepin 25 10/22/20 Unknown Insulin Lispro-Aabc [Lyumjev 10/22/20 Unknown Kwikpen U-100] Lispro Insulin 1000units 10/22/20 Unknown Previous Rx's Medication Instructions Recorded Last Taken Type Albuterol Mdi (or & Nicu Only) 2 puff IH QID PRN #8.5 gram 04/25/19 Unknown Rx [ProAir HFA Inhaler] Gabapentin [Neurontin] 800 mg PO TID #90 10/28/20 Unknown Rx Insulin NPH/Regular [NovoLIN 70/30] 25 unit SUB-Q BIDDIAB #2 vial 10/28/20 Unknown Rx Losartan [Cozaar] 100 mg PO QDAY #90 10/28/20 Unknown Rx HYDROcodone/APAP 5-325 [[place] 1 each PO Q6HR PRN #10 tablet 01/09/21 Unknown Rx 5-325 mg TAB] cephALEXin [Keflex] 500 mg PO Q6HR #40 capsule 01/09/21 Unknown Rx Nitrofurantoin [place]/M-Cryst 100 mg PO Q12HR 7 Days #14 capsule 01/30/21 Unknown Rx [Macrobid CAP] Nitrofurantoin [place]/M-Cryst 100 mg PO Q12HR #20 capsule 03/25/21 Unknown Rx [Macrobid CAP] Phenazopyridine [Pyridium] 200 mg PO TID #9 tab 03/25/21 Unknown Rx Fluconazole [Diflucan TAB] 200 mg PO ONCE #1 tablet 05/24/21 Unknown Rx HYDROcodone/APAP 5-325 [[place] 1 each PO Q6HR PRN #12 tablet 05/24/21 Unknown Rx 5-325 mg TAB] levoFLOXacin [Levaquin TAB] 500 mg PO QDAY #7 tablet 05/24/21 Unknown Rx Clindamycin [Clindamycin CAP] 300 mg PO Q8H #30 cap 09/06/21 Unknown Rx Fluconazole [Diflucan TAB] 200 mg PO QDAY #2 tablet 09/06/21 Unknown Rx Ibuprofen [Motrin 800 MG tab] 800 mg PO Q8HR PRN #30 tablet 09/06/21 Unknown Rx Ondansetron [Zofran ODT TAB] 4 mg PO Q8HR PRN #20 tab.rapdis 09/06/21 Unknown Rx cephALEXin [Keflex] 500 mg PO Q6HR #40 capsule 09/06/21 Unknown Rx rifAMPin [Rifampin] 300 mg PO Q12H #20 cap 09/06/21 Unknown Rx traMADoL [Ultram 50 MG tab] 50 mg PO Q6HR PRN #15 tablet 09/06/21 Unknown Rx Allergies Allergy/AdvReac Type Severity Reaction Status Date / Time iodine Allergy Swelling Verified 03/24/21 23:37 sulfamethoxazole Allergy Rash Verified 03/24/21 23:37 [From Bactrim] trimethoprim [From Bactrim] Allergy Rash Verified 03/24/21 23:37 metformin AdvReac Nausea Verified 03/24/21 23:37 seafood Allergy Rash Uncoded 01/30/21 11:16 ED Review of Systems ROS: Stated complaint: ABD PAIN/BOIL ON PRIVATE AREA Other details as noted in HPI Constitutional: denies: chills, fever Eyes: denies: eye pain, eye discharge, vision change ENT: denies: ear pain, throat pain Respiratory: denies: cough, shortness of breath, wheezing Cardiovascular: denies: chest pain, palpitations Endocrine: no symptoms reported Gastrointestinal: abdominal pain (Suprapubic pain), nausea, vomiting. denies: diarrhea Genitourinary: denies: urgency, dysuria, discharge Musculoskeletal: denies: back pain, joint swelling, arthralgia Skin: rash (Swollen, mild erythematous maculopapular rash on pubic area with thick purulent discharge and pain), change in color. denies: lesions Neurological: denies: headache, weakness, paresthesias Psychiatric: denies: anxiety, depression Hematological/Lymphatic: denies: easy bleeding, easy bruising ED Past Medical Hx - Past Medical History Hx Hypertension: Yes Hx Heart Attack/AMI: No Hx Congestive Heart Failure: No Hx Diabetes: Yes Hx Liver Disease: No Hx Renal Disease: Yes (Stage III CKD) Hx Seizures: No Hx Psychiatric Treatment: Yes (anxiety depression) Hx Asthma: Yes Hx COPD: Yes Hx HIV: Yes Additional medical history: HIGH CHOLESTEROL - Surgical History Hx Pacemaker: No Hx Internal Defibrillator: No Hx Cholecystectomy: Yes Additional Surgical History: d&c x1, insulin pump placement, TOTAL HYSTERECTOMY, boil removal to R inner thigh - Social History Smoking Status: Current Every Day Smoker Substance Use Type: None - Medications Home Medications: Home Medications Medication Instructions Recorded Confirmed Last Taken Type Abacavir/Dolutegravir/Lamivudi 1 each PO DAILY 07/10/15 08/11/20 09/08/17 History [Triumeq 600-50-300 mg Tablet] Albuterol Mdi (or & Nicu Only) 2 puff IH QID PRN #8.5 gram 04/25/19 08/11/20 Unknown Rx [ProAir HFA Inhaler] Doxepin 25 10/22/20 Unknown History Insulin Lispro-Aabc [Lyumjev 10/22/20 Unknown History Kwikpen U-100] Lispro Insulin 1000units 10/22/20 Unknown History Gabapentin [Neurontin] 800 mg PO TID #90 10/28/20 Unknown Rx Insulin NPH/Regular [NovoLIN 70/30] 25 unit SUB-Q BIDDIAB #2 vial 10/28/20 Unknown Rx Losartan [Cozaar] 100 mg PO QDAY #90 10/28/20 Unknown Rx HYDROcodone/APAP 5-325 [[place] 1 each PO Q6HR PRN #10 tablet 01/09/21 Unknown Rx 5-325 mg TAB] cephALEXin [Keflex] 500 mg PO Q6HR #40 capsule 01/09/21 Unknown Rx Nitrofurantoin [place]/M-Cryst 100 mg PO Q12HR 7 Days #14 capsule 01/30/21 Unknown Rx [Macrobid CAP] Nitrofurantoin [place]/M-Cryst 100 mg PO Q12HR #20 capsule 03/25/21 Unknown Rx [Macrobid CAP] Phenazopyridine [Pyridium] 200 mg PO TID #9 tab 03/25/21 Unknown Rx Fluconazole [Diflucan TAB] 200 mg PO ONCE #1 tablet 05/24/21 Unknown Rx HYDROcodone/APAP 5-325 [[place] 1 each PO Q6HR PRN #12 tablet 05/24/21 Unknown Rx 5-325 mg TAB] levoFLOXacin [Levaquin TAB] 500 mg PO QDAY #7 tablet 05/24/21 Unknown Rx Clindamycin [Clindamycin CAP] 300 mg PO Q8H #30 cap 09/06/21 Unknown Rx Fluconazole [Diflucan TAB] 200 mg PO QDAY #2 tablet 09/06/21 Unknown Rx Ibuprofen [Motrin 800 MG tab] 800 mg PO Q8HR PRN #30 tablet 09/06/21 Unknown Rx Ondansetron [Zofran ODT TAB] 4 mg PO Q8HR PRN #20 tab.rapdis 09/06/21 Unknown Rx cephALEXin [Keflex] 500 mg PO Q6HR #40 capsule 09/06/21 Unknown Rx rifAMPin [Rifampin] 300 mg PO Q12H #20 cap 09/06/21 Unknown Rx traMADoL [Ultram 50 MG tab] 50 mg PO Q6HR PRN #15 tablet 09/06/21 Unknown Rx ED Physical Exam - General Limitations: Language Barrier General appearance: alert, in no apparent distress, anxious - Head Head exam: Present: atraumatic, normocephalic, normal inspection - Eye Eye exam: Present: normal appearance, PERRL, EOMI Pupils: Present: normal accommodation - ENT ENT exam: Present: normal exam, normal orophraynx, mucous membranes moist, TM's normal bilaterally, normal external ear exam - Neck Neck exam: Present: normal inspection, full ROM. Absent: tenderness - Respiratory Respiratory exam: Present: normal lung sounds bilaterally. Absent: respiratory distress, wheezes, rales, rhonchi, chest wall tenderness, accessory muscle use, decreased breath sounds, other - Cardiovascular Cardiovascular Exam: Present: normal rhythm, tachycardia, normal heart sounds. Absent: systolic murmur, diastolic murmur, rubs, gallop - GI/Abdominal GI/Abdominal exam: Present: soft, tenderness (Palpable diffuse suprapubic tenderness), normal bowel sounds. Absent: guarding, rebound, hyperactive bowel sounds, organomegaly, mass - Bi-manual exam: Present: other (Palpable swollen tender erythematous maculopapular rash with thick purulent discharge on mons pubis area) - Extremities Exam Extremities exam: Present: normal inspection, full ROM, normal capillary refill - Back Exam Back exam: Present: normal inspection, full ROM, CVA tenderness (R), CVA tenderness (L). Absent: tenderness, muscle spasm, paraspinal tenderness, vertebral tenderness - Neurological Exam Neurological exam: Present: alert, oriented X3, CN II-XII intact, normal gait, reflexes normal - Psychiatric Psychiatric exam: Present: normal affect, normal mood - Skin Skin exam: Present: warm, dry, intact, normal color. Absent: rash ED Course Vital Signs 09/05/21 09/05/21 15:32 15:33 Temperature 99 F Pulse Rate 104 H Respiratory 16 Rate Blood Pressure 189/79 O2 Sat by Pulse 98 Oximetry ED Medical Decision Making - Lab Data Result diagrams: 09/05/21 21:30 09/05/21 21:30 - Radiology Data Radiology results: report reviewed, image reviewed [facility] [address] [place] [address] Cat Scan Report Signed Patient: POLINA SIMS MR#: [id number] : 1980 Acct:[id number] Age/Sex: 41 / F ADM Date: 09/05/21 Loc: ED Attending Dr: Ordering Physician: ELISEO BELLE Date of Service: 09/05/21 Procedure(s): CT abdomen pelvis w con Accession Number(s): [id number] cc: ELISEO BELLE CT ABDOMEN AND PELVIS WITH CONTRAST INDICATION / CLINICAL INFORMATION: Lower abdominal pain, pelvic / vaginal abscess. TECHNIQUE: Axial CT images were obtained through the abdomen and pelvis after 100 cc Omnipaque [address] scans at this location are performed using CT dose reduction for ALARA by means of automated exposure control. COMPARISON: CT of abdomen and pelvis 05/24/2021 FINDINGS: LOWER CHEST: No significant abnormality of the imaged chest. LIVER: No focal lesion. No acute findings. GALLBLADDER / BILE DUCTS: Cholecystectomy. Biliary ducts grossly unremarkable. SPLEEN: No significant abnormality. PANCREAS: No significant abnormality. ADRENALS: No significant abnormality. KIDNEYS/URETERS: 1 mm nonobstructing stone medial right kidney. 2.5 cm cyst posterior medial right kidney stable in appearance. Stable mild perinephric fat stranding right kidney. Left kidney demonstrates multiple calyceal calcifications some of which have air surrounding them within the upper pole, appearing similar to prior study. Additional small collections of air are suggested within the anterior calyx mid left kidney. Stable minimal perinephric fat stranding around the left kidney. No left ureterolithiasis. STOMACH / DUODENUM / SMALL BOWEL: The stomach, duodenum, and small bowel demonstrate no significant abnormality. No specific abnormality of the mesentery demonstrated. COLON: No significant abnormality. In the region of the vaginal cuff rectum is closely approximating the cuff without obvious adherence to the bladder wall. The bladder wall is inseparable from the vaginal cuff superiorly. APPENDIX: No significant abnormality. PERITONEUM: Mild diastases of the anterior rectus muscles. Small fat-containing hernia to left midline upper abdomen. No free air or free fluid. LYMPH NODES: Borderline pericaval and aortocaval and pericaval lymph nodes, stable. Stable minimal prominence of bilateral inguinal lymph nodes. AORTA / ARTERIES: No significant abnormality. IVC / VEINS: No significant abnormality. URINARY BLADDER: Bladder wall thickening is present. Additional air present within the antidependent urinary bladder. REPRODUCTIVE ORGANS: Uterus is absent. No significant adnexal abnormality. ADDITIONAL ABDOMINAL/PELVIC FINDINGS: None. SKELETAL SYSTEM: No significant abnormality. IMPRESSION: 1. Small volume of air within the urinary bladder and left renal calyceal system similar in appearance prior study. Correlation with recent instrumentation or catheter placement recommended as vaginal vesicular fistula not excluded. 2. Bladder wall thickening and mild stable perinephric fat stranding bilaterally could reflect evidence of UTI/pyelonephritis. Correlation with urinalysis and culture are recommended. 3. Other findings as detailed. Signer Name: Alma Millard II, MD Signed: 09/05/2021 11:42 PM Workstation Name: [id number] Transcribed By: ANTIONE Dictated By: ALMA MILLARD II, MD Electronically Authenticated By: ALMA MILLARD II, MD Signed Date/Time: 09/05/212341 DD/ 35 TD/TT: - Medical Decision Making This is a 41-year-old female with a history of HIV, insulin-dependent diabetes, hypertension, stage III chronic kidney disease, asthma and COPD, hyperlipidemia, anxiety and depression and chronic recurrent hidradenitis suppurativa infections who presents to the ED with complaint of acute onset persistent diffuse low abdominal pain with intractable nausea and vomiting for the last 1 week. Patient also complains of painful swollen mild erythematous maculopapular rash on pubic area for the last 5 days. Patient states that in the last 3 days, her symptoms have worsened such that she has not been able to take her medications of poor food. In the ED, patient is alert and oriented x3 and is not in any distress. Patient was treated for pain in the ED and also given antiemetics, and normal saline 1 L IV bolus x1. Lab test results were reviewed and showed hyperglycemia of 302 mg/dL, creatinine 1.7 which is significantly improved from the previously reported creatinine levels. Urinalysis showed significant urinary tract infection. The abdomen pelvis CT scan with IV contrast showed small volume of air within the urinary bladder and left renal calyceal system similar in appearance prior study. Correlation with recent instrumentation or catheter placement recommended as vaginal vesicular fistula not excluded. It also showed bladder wall thickening and mild stable perinephric fat stranding bilaterally could reflect evidence of UTI/pyelonephritis. Correlation with urinalysis and culture are recommended. Patient also received additional pain medications, including additional 2 L additional liters of normal saline IV, and antibiotics Rocephin 1 g IV x1 and clindamycin 900 mg IV x1 for UTI and cellulitis of suprapubic area. On reevaluation, patient felt better, pain is well controlled medication. Patient is hemodynamically stable. The final [id number]-[id number] glucose was 262 mg/dL. Patient was discharged home on medications including antibiotics and pain medica tion as well as antiemetics and was advised to follow-up with her primary care physician in 5 to 7 days for reevaluation or return to the ED immediately if symptoms get worse. - Differential Diagnosis UTI; colitis; diverticulitis; cellulitis; appendicitis; ovarian cyst Critical care attestation.: If time is entered above; I have spent that time in minutes in the direct care of this critically ill patient, excluding procedure time. ED Disposition Clinical Impression: Acute pyelonephritis due to bacteria, Cellulitis and abscess of other specified site, Nausea and vomiting in adult, Abdominal pain, bilateral lower quadrant Disposition: 01 HOME / SELF CARE / HOMELESS Is pt being admited?: No Does the pt Need Aspirin: No Condition: Stable Instructions: Flank Pain, Adult, [id number], Skin Abscess, [id number], Abdominal Pain, Adult, Gtya-hh-[id number], Pyelonephritis, Adult, [id number], Nausea and Vomiting, Adult, [id number]-iv-Rtxg, Cellulitis, Adult, [id number] Additional Instructions: All lab test results were reviewed and are all nonactionable except for significant urinary tract infection in urinalysis, slightly elevated but improved creatinine level of 1.7 hyperglycemia of 302 mg/dL. All imaging reports were also reviewed and showed findings of bladder wall thickening and mild stable perinephric fat stranding bilaterally could reflect evidence of UTI/pyelonephritis. Therefore take medication with food, drink plenty of fluids, follow-up with your primary care physician in 7 to 10 days for reevaluation. Return to the ED immediately if symptoms get worse. Prescriptions: Clindamycin [Clindamycin CAP] 300 mg PO Q8H #30 cap Fluconazole [Diflucan TAB] 200 mg PO QDAY #2 tablet cephALEXin [Keflex] 500 mg PO Q6HR #40 capsule Ibuprofen [Motrin 800 MG tab] 800 mg PO Q8HR PRN #30 tablet PRN Reason: Pain , Severe (7-10) rifAMPin [Rifampin] 300 mg PO Q12H #20 cap traMADoL [Ultram 50 MG tab] 50 mg PO Q6HR PRN #15 tablet PRN Reason: Pain Ondansetron [Zofran ODT TAB] 4 mg PO Q8HR PRN #20 tab.rapdis PRN Reason: Nausea Referrals: [facility] [Provider Group] - 7-10 days Forms: Work/School Release Form(ED) Time of Disposition: 04:49 Print Language: CROATIAN
== END 2021-09-06 05:19 | disposition home or self-care (01) ==
LOC: ED 12:49
DX: N10 Acute pyelonephritis (principal); B96.89 Other specified bacterial agents as the cause of diseases classified elsewhere; L03.90 Cellulitis, unspecified; R11.2 Nausea with vomiting, unspecified; R10.31 Right lower quadrant pain; R10.32 Left lower quadrant pain; I12.9 Hypertensive chronic kidney disease with stage 1 through stage 4 chronic kidney disease, or unspecified chronic kidney disease; E11.22 Type 2 diabetes mellitus with diabetic chronic kidney disease; N18.30 Chronic kidney disease, stage 3 unspecified; J45.909 Unspecified asthma, uncomplicated; Z20.2 Contact with and (suspected) exposure to infections with a predominantly sexual mode of transmission; F41.9 Anxiety disorder, unspecified; Z90.49 Acquired absence of other specified parts of digestive tract; Z91.013 Allergy to seafood; Z91.09 Other allergy status, other than to drugs and biological substances; Z79.899 Other long term (current) drug therapy; F17.200 Nicotine dependence, unspecified, uncomplicated
CPT/HCPCS: 36415; 74177; 80053; 81001; 82962; 83690; 84703; 85007; 85025; 96361; 96365; 96367; 96375; 99284; J0696; J0780; J1170; J1200; J2270; J2765; J7030; J7502; Q9967; J2405

== ENCOUNTER 2021-11-19 08:30 | Outpatient (CLI) | payer MEDICARE ==
[2021-11-19 09:35] LABS: Basophils % (Auto) 0.2 % (0.0-1.8); Eosinophils # (Auto) 0.1 K/mm3 (0.0-0.4); Eosinophils % (Auto) 1.8 % (0.0-4.3); Hematocrit 34.1 % (30.3-42.9); Hemoglobin 11.1 gm/dl (10.1-14.3); Lymphocytes # (Auto) 2.5 K/mm3 (1.2-5.4); Lymphocytes % (Auto) 37.3 % (13.4-35.0); Mean Corpuscular HGB Conc 33 % (30-34); Mean Corpuscular Volume 100 fl (79-97); Monocytes # (Auto) 0.4 K/mm3 (0.0-0.8); Monocytes % (Auto) 6.4 % (0.0-7.3); Platelet Count 179 K/mm3 (140-440); Red Blood Count 3.42 M/mm3 (3.65-5.03); Red Cell Distribution Width 14.7 % (13.2-15.2)
[2021-11-19 11:11] LABS: Albumin 3.6 g/dL (3.9-5); Calcium 9.1 mg/dL (8.4-10.2); Chol/HDL Ratio 3.93 %
[2021-11-22 12:10] LABS: Vitamin D, 25-OH, D2 <4 ng/mL
== END 2021-11-19 08:31 | disposition home or self-care (01) ==
LOC: LAB 08:30
PROVIDERS: ATTEND Internal Medicine
DX: I12.9 Hypertensive chronic kidney disease with stage 1 through stage 4 chronic kidney disease, or unspecified chronic kidney disease (principal); N18.9 Chronic kidney disease, unspecified; E78.5 Hyperlipidemia, unspecified; E66.01 Morbid (severe) obesity due to excess calories; N39.0 Urinary tract infection, site not specified; Z00.00 Encounter for general adult medical examination without abnormal findings; E11.9 Type 2 diabetes mellitus without complications
CPT/HCPCS: 36415; 80053; 80061; 82306; 83036; 84443; 85025

== ENCOUNTER 2021-12-03 13:38 | Emergency (ER) | payer MEDICARE ==
[2021-12-03 19:59] LABS: Color,Urine Colorless (Yellow)
[2021-12-03 20:03] LABS: HCG Qualitative,Urine Negative (Negative)
[2021-12-03 20:04] LABS: Bacteria,Urine 2+ /HPF (Negative); Mucus,Urine FEW /HPF
[2021-12-03] MEDS ORDERED: KETOROLAC 30 MG/1 ML INJ IV ONE (20:49)
[2021-12-03] MEDS ORDERED: SODIUM CHLORIDE 0.9% 1000 ML 1,000 ML IV ONE (20:49)
[2021-12-03] MEDS ORDERED: ONDANSETRON 4 MG/2 ML INJ IV ONE ×2 (20:49→22:49)
[2021-12-03] MEDS ORDERED: cefTRIAXone/NS 1 GM/50 ML 1 GM/50 ML BAG IV ONE (20:52)
[2021-12-03 21:27] LABS: Basophils % (Auto) 0.4 % (0.0-1.8); Eosinophils # (Auto) 0.1 K/mm3 (0.0-0.4); Hematocrit 33.2 % (30.3-42.9); Lymphocytes # (Auto) 2.6 K/mm3 (1.2-5.4); Lymphocytes % (Auto) 36.7 % (13.4-35.0); Mean Corpuscular HGB Conc 33 % (30-34); Mean Corpuscular Volume 101 fl (79-97); Monocytes # (Auto) 0.4 K/mm3 (0.0-0.8); Monocytes % (Auto) 5.6 % (0.0-7.3); Platelet Count 177 K/mm3 (140-440); Red Blood Count 3.29 M/mm3 (3.65-5.03); Red Cell Distribution Width 15.5 % (13.2-15.2)
--- NOTE | 2021-12-03 21:37 | Emergency Department Report ---
ED Abdominal Pain HPI - General Chief Complaint: Abdominal Pain Stated Complaint: LOWER ABD PAIN Time Seen by Provider: 12/03/21 20:48 Source: patient Mode of arrival: Ambulatory Limitations: No Limitations - History of Present Illness Initial Comments: Patient 41-year-old female with history of HIV, CKD, diabetes type 2, kidney stone. Who presents for abdominal pain radiating to bilateral flanks. X3 days. Patient denies fevers or chills. Patient does endorse dysuria frequency and urgency. There is no nausea or vomiting. Patient does have history of renal stones. Symptoms are exacerbated by voiding. Symptoms are relieved by nothing tried. Patient is currently current with antivirals has ID follow-up. Rates symptoms at / symptoms are relieved by nothing tried. MD Complaint: abdominal pain Severity scale (0 -10): 10 - Related Data Home Medications Medication Instructions Recorded Confirmed Last Taken Abacavir/Dolutegravir/Lamivudi 1 each PO DAILY 07/10/15 08/11/20 09/08/17 [Triumeq 600-50-300 mg Tablet] Doxepin 25 10/22/20 Unknown Insulin Lispro-Aabc [Lyumjev 10/22/20 Unknown Kwikpen U-100] Lispro Insulin 1000units 10/22/20 Unknown Previous Rx's Medication Instructions Recorded Last Taken Type Albuterol Mdi (or & Nicu Only) 2 puff IH QID PRN #8.5 gram 04/25/19 Unknown Rx [ProAir HFA Inhaler] Gabapentin [Neurontin] 800 mg PO TID #90 10/28/20 Unknown Rx Insulin NPH/Regular [NovoLIN 70/30] 25 unit SUB-Q BIDDIAB #2 vial 10/28/20 Unknown Rx Losartan [Cozaar] 100 mg PO QDAY #90 10/28/20 Unknown Rx HYDROcodone/APAP 5-325 [Letcher 1 each PO Q6HR PRN #10 tablet 01/09/21 Unknown Rx 5-325 mg TAB] cephALEXin [Keflex] 500 mg PO Q6HR #40 capsule 01/09/21 Unknown Rx Nitrofurantoin [place]/M-Cryst 100 mg PO Q12HR 7 Days #14 capsule 01/30/21 Unknown Rx [Macrobid CAP] Nitrofurantoin [place]/M-Cryst 100 mg PO Q12HR #20 capsule 03/25/21 Unknown Rx [Macrobid CAP] Phenazopyridine [Pyridium] 200 mg PO TID #9 tab 03/25/21 Unknown Rx Fluconazole [Diflucan TAB] 200 mg PO ONCE #1 tablet 05/24/21 Unknown Rx HYDROcodone/APAP 5-325 [Letcher 1 each PO Q6HR PRN #12 tablet 05/24/21 Unknown Rx 5-325 mg TAB] levoFLOXacin [Levaquin TAB] 500 mg PO QDAY #7 tablet 05/24/21 Unknown Rx Clindamycin [Clindamycin CAP] 300 mg PO Q8H #30 cap 09/06/21 Unknown Rx Fluconazole [Diflucan TAB] 200 mg PO QDAY #2 tablet 09/06/21 Unknown Rx Ibuprofen [Motrin 800 MG tab] 800 mg PO Q8HR PRN #30 tablet 09/06/21 Unknown Rx Ondansetron [Zofran ODT TAB] 4 mg PO Q8HR PRN #20 tab.rapdis 09/06/21 Unknown Rx cephALEXin [Keflex] 500 mg PO Q6HR #40 capsule 09/06/21 Unknown Rx rifAMPin [Rifampin] 300 mg PO Q12H #20 cap 09/06/21 Unknown Rx traMADoL [Ultram 50 MG tab] 50 mg PO Q6HR PRN #15 tablet 09/06/21 Unknown Rx Ketorolac [Toradol] 10 mg PO Q6H PRN #12 tab 12/03/21 Unknown Rx Metoclopramide [Reglan] 10 mg PO TID PRN #12 tab 12/03/21 Unknown Rx Tamsulosin [Flomax] 0.4 mg PO QDAY 7 Days #7 cap 12/03/21 Unknown Rx diphenhydrAMINE [Benadryl CAP] 25 mg PO Q8HR PRN #12 capsule 12/03/21 Unknown Rx levoFLOXacin [Levaquin TAB] 500 mg PO QDAY 7 Days #7 tablet 12/03/21 Unknown Rx Allergies Allergy/AdvReac Type Severity Reaction Status Date / Time iodine Allergy Swelling Verified 12/03/21 17:52 sulfamethoxazole Allergy Rash Verified 12/03/21 17:52 [From Bactrim] trimethoprim [From Bactrim] Allergy Rash Verified 12/03/21 17:52 metformin AdvReac Nausea Verified 12/03/21 17:52 seafood Allergy Rash Uncoded 12/03/21 17:52 ED Review of Systems ROS: Stated complaint: LOWER ABD PAIN Other details as noted in HPI Constitutional: malaise. denies: chills, fever Eyes: denies: eye pain, eye discharge, vision change ENT: denies: ear pain, throat pain Respiratory: denies: cough, shortness of breath, wheezing Cardiovascular: denies: chest pain, palpitations Endocrine: no symptoms reported Gastrointestinal: abdominal pain. denies: nausea, vomiting, diarrhea, hematemesis, melena Genitourinary: urgency, dysuria, frequency. denies: hematuria, discharge Musculoskeletal: back pain Skin: denies: rash, lesions Neurological: denies: headache, weakness, paresthesias, vertigo Psychiatric: denies: anxiety, depression Hematological/Lymphatic: denies: easy bleeding, easy bruising ED Past Medical Hx - Past Medical History Hx Hypertension: Yes Hx Heart Attack/AMI: No Hx Congestive Heart Failure: No Hx Diabetes: Yes Hx Liver Disease: No Hx Renal Disease: Yes (Stage III CKD) Hx Seizures: No Hx Psychiatric Treatment: Yes (anxiety depression) Hx Asthma: Yes Hx COPD: Yes Hx HIV: Yes Additional medical history: HIGH CHOLESTEROL - Surgical History Hx Pacemaker: No Hx Internal Defibrillator: No Hx Cholecystectomy: Yes Additional Surgical History: d&c x1, insulin pump placement, TOTAL HYSTERECTOMY, boil removal to R inner thigh - Social History Smoking Status: Current Every Day Smoker Substance Use Type: None - Medications Home Medications: Home Medications Medication Instructions Recorded Confirmed Last Taken Type Abacavir/Dolutegravir/Lamivudi 1 each PO DAILY 07/10/15 08/11/20 09/08/17 History [Triumeq 600-50-300 mg Tablet] Albuterol Mdi (or & Nicu Only) 2 puff IH QID PRN #8.5 gram 04/25/19 08/11/20 Unknown Rx [ProAir HFA Inhaler] Doxepin 25 10/22/20 Unknown History Insulin Lispro-Aabc [Lyumjev 10/22/20 Unknown History Kwikpen U-100] Lispro Insulin 1000units 10/22/20 Unknown History Gabapentin [Neurontin] 800 mg PO TID #90 10/28/20 Unknown Rx Insulin NPH/Regular [NovoLIN 70/30] 25 unit SUB-Q BIDDIAB #2 vial 10/28/20 Unkn own Rx Losartan [Cozaar] 100 mg PO QDAY #90 10/28/20 Unknown Rx HYDROcodone/APAP 5-325 [Letcher 1 each PO Q6HR PRN #10 tablet 01/09/21 Unknown Rx 5-325 mg TAB] cephALEXin [Keflex] 500 mg PO Q6HR #40 capsule 01/09/21 Unknown Rx Nitrofurantoin [place]/M-Cryst 100 mg PO Q12HR 7 Days #14 capsule 01/30/21 Unknown Rx [Macrobid CAP] Nitrofurantoin [place]/M-Cryst 100 mg PO Q12HR #20 capsule 03/25/21 Unknown Rx [Macrobid CAP] Phenazopyridine [Pyridium] 200 mg PO TID #9 tab 03/25/21 Unknown Rx Fluconazole [Diflucan TAB] 200 mg PO ONCE #1 tablet 05/24/21 Unknown Rx HYDROcodone/APAP 5-325 [Letcher 1 each PO Q6HR PRN #12 tablet 05/24/21 Unknown Rx 5-325 mg TAB] levoFLOXacin [Levaquin TAB] 500 mg PO QDAY #7 tablet 05/24/21 Unknown Rx Clindamycin [Clindamycin CAP] 300 mg PO Q8H #30 cap 09/06/21 Unknown Rx Fluconazole [Diflucan TAB] 200 mg PO QDAY #2 tablet 09/06/21 Unknown Rx Ibuprofen [Motrin 800 MG tab] 800 mg PO Q8HR PRN #30 tablet 09/06/21 Unknown Rx Ondansetron [Zofran ODT TAB] 4 mg PO Q8HR PRN #20 tab.rapdis 09/06/21 Unknown Rx cephALEXin [Keflex] 500 mg PO Q6HR #40 capsule 09/06/21 Unknown Rx rifAMPin [Rifampin] 300 mg PO Q12H #20 cap 09/06/21 Unknown Rx traMADoL [Ultram 50 MG tab] 50 mg PO Q6HR PRN #15 tablet 09/06/21 Unknown Rx Ketorolac [Toradol] 10 mg PO Q6H PRN #12 tab 12/03/21 Unknown Rx Metoclopramide [Reglan] 10 mg PO TID PRN #12 tab 12/03/21 Unknown Rx Tamsulosin [Flomax] 0.4 mg PO QDAY 7 Days #7 cap 12/03/21 Unknown Rx diphenhydrAMINE [Benadryl CAP] 25 mg PO Q8HR PRN #12 capsule 12/03/21 Unknown Rx levoFLOXacin [Levaquin TAB] 500 mg PO QDAY 7 Days #7 tablet 12/03/21 Unknown Rx ED Physical Exam - General Limitations: No Limitations General appearance: alert, in no apparent distress - Head Head exam: Present: normocephalic, normal inspection - Eye Eye exam: Present: PERRL, EOMI Pupils: Present: normal accommodation - ENT ENT exam: Present: mucous membranes moist - Neck Neck exam: Present: normal inspection, full ROM. Absent: tenderness, lymphadenopathy - Respiratory Respiratory exam: Present: normal lung sounds bilaterally. Absent: respiratory distress, wheezes - Cardiovascular Cardiovascular Exam: Present: regular rate, normal rhythm, normal heart sounds. Absent: systolic murmur, diastolic murmur, rubs, gallop - GI/Abdominal GI/Abdominal exam: Present: soft, tenderness, normal bowel sounds. Absent: distended, guarding, rebound (Bilateral flank), rigid, bruit, hernia - Rectal Rectal exam: Present: deferred - Extremities Exam Extremities exam: Present: normal inspection, full ROM. Absent: pedal edema - Back Exam Back exam: Present: normal inspection, full ROM, CVA tenderness (R), CVA tenderness (L) - Neurological Exam Neurological exam: Present: alert, oriented X3, CN II-XII intact, normal gait - Expanded Neurological Exam Expanded Patient oriented to: Present: person, place, time Speech: Present: fluid speech Motor strength exam: RUE: 5, LUE: 5, RLE: 5, LLE: 5 Best Eye Response ([place]): (4) open spontaneously Best Motor Response ([place]): (6) obeys commands Best Verbal Response (Sweetie): (5) oriented [place] Total: 15 - Psychiatric Psychiatric exam: Present: normal affect, normal mood - Skin Skin exam: Present: warm, dry, intact, normal color. Absent: rash ED Course Vital Signs 12/03/21 17:47 Temperature 98.7 F Pulse Rate 104 H Respiratory 18 Rate Blood Pressure 194/93 [Left] O2 Sat by Pulse 98 Oximetry ED Medical Decision Making - Lab Data Result diagrams: 12/03/21 21:06 12/03/21 21:06 - Radiology Data Radiology results: report reviewed, image reviewed CT ABDOMEN AND PELVIS WITHOUT CONTRAST INDICATION / CLINICAL INFORMATION: r/o obstructive renal stone. TECHNIQUE: Axial CT images were obtained through the abdomen and pelvis without IV contrast. All CT scans at this location are performed using CT dose reduction for ALARA by means of automated exposure control. COMPARISON: CT dated 09/05/2021 FINDINGS: LOWER CHEST: Right middle lobe and lingular atelectasis. LIVER: No significant abnormality. GALLBLADDER: Cholecystectomy. BILE DUCTS: No significant abnormality. PANCREAS: No significant abnormality. SPLEEN: No significant abnormality. ADRENALS: No significant abnormality. RIGHT KIDNEY / URETER: Suspected posterior interpolar cyst. LEFT KIDNEY / URETER: Gas within the renal collecting system with multiple nonobstructing stones. No ureteral stone. STOMACH / SMALL BOWEL: No significant abnormality. COLON: No significant abnormality. APPENDIX: No significant abnormality. PERITONEUM: No free fluid. No free air. No fluid collection. LYMPH NODES: Few prominent but nonenlarged retroperitoneal lymph nodes. AORTA / ARTERIES: No significant abnormality. IVC / VEINS: No significant abnormality. URINARY BLADDER: Gas within the urinary bladder. REPRODUCTIVE ORGANS: Absent ADDITIONAL FINDINGS: Postsurgical changes along the anterior abdominal wall with rectus muscle diastases and tiny fat-containing ventral hernia. SKELETAL SYSTEM: No significant abnormality. IMPRESSION: 1. Gas within the left renal collecting system, left ureter, and urinary bladder could be related to instrumentation/reflux or potentially emphysematous pyelitis. Recommend correlation with urinalysis. 2. Nonobstructing left upper pole calculi. No ureteral calculus. 3. Additional chronic/incidental findings detailed above. Signer Name: Shameka Zheng MD Signed: 12/03/2021 10:52 PM Workstation Name: [id number] Transcribed By: YINKA Dictated By: SHAMEKA ZHENG MD Electronically Authenticated By: SHAMEKA ZHENG MD Signed Date/Time: 12/03/212251 DD/ 46 TD/TT: - Medical Decision Making Unobstructed left renal stones per CT there is an acute on chronic problem for this patient patient is followed by urology Dr. Farris. Has follow-up appointment on the . He is currently alert oriented x3 patient is tolerating p.o. intake at this time. Pain is resolved. Patient is voiding. Plan DC with prescriptions. Patient DC to home in stable condition at this time. Critical care attestation.: If time is entered above; I have spent that time in minutes in the direct care of this critically ill patient, excluding procedure time. ED Disposition Clinical Impression: Kidney stones, Cystitis Disposition: HOME / SELF CARE / HOMELESS Is pt being admited?: No Does the pt Need Aspirin: No Condition: Stable Instructions: Abdominal Pain (ED), Kidney Stones, [id number], Kidney Stones, Urinary Tract Infection, Adult Additional Instructions: Take medications as prescribed, follow-up with urology as scheduled. Return to emergency department should symptoms worsen. Prescriptions: diphenhydrAMINE [Benadryl CAP] 25 mg PO Q8HR PRN #12 capsule PRN Reason: Nausea Tamsulosin [Flomax] 0.4 mg PO QDAY 7 Days #7 cap levoFLOXacin [Levaquin TAB] 500 mg PO QDAY 7 Days #7 tablet Metoclopramide [Reglan] 10 mg PO TID PRN #12 tab PRN Reason: Nausea Ketorolac [Toradol] 10 mg PO Q6H PRN #12 tab PRN Reason: Pain Referrals: REINIER FARRIS MD [Staff Physician] - 3-5 Days Forms: Work/School Release Form(ED) Time of Disposition: 23:30
[2021-12-03 21:49] LABS: Alanine Aminotransferase 21 units/L (7-56); Albumin 3.1 g/dL (3.9-5); BUN/Creatinine Ratio 11; Blood Urea Nitrogen 23 mg/dL (7-17); Calcium 8.3 mg/dL (8.4-10.2); Hemolysis Index 11
[2021-12-03] MEDS ORDERED: MORPHINE 4 MG/1 ML INJ IV ONE (22:49)
--- NOTE | 2021-12-03 22:57 | Cat Scan Report ---
CT ABDOMEN AND PELVIS WITHOUT CONTRAST INDICATION / CLINICAL INFORMATION: r/o obstructive renal stone. TECHNIQUE: Axial CT images were obtained through the abdomen and pelvis without IV contrast. All CT scans at this location are performed using CT dose reduction for ALARA by means of automated exposure control. COMPARISON: CT dated 09/05/2021 FINDINGS: LOWER CHEST: Right middle lobe and lingular atelectasis. LIVER: No significant abnormality. GALLBLADDER: Cholecystectomy. BILE DUCTS: No significant abnormality. PANCREAS: No significant abnormality. SPLEEN: No significant abnormality. ADRENALS: No significant abnormality. RIGHT KIDNEY / URETER: Suspected posterior interpolar cyst. LEFT KIDNEY / URETER: Gas within the renal collecting system with multiple nonobstructing stones. No ureteral stone. STOMACH / SMALL BOWEL: No significant abnormality. COLON: No significant abnormality. APPENDIX: No significant abnormality. PERITONEUM: No free fluid. No free air. No fluid collection. LYMPH NODES: Few prominent but nonenlarged retroperitoneal lymph nodes. AORTA / ARTERIES: No significant abnormality. IVC / VEINS: No significant abnormality. URINARY BLADDER: Gas within the urinary bladder. REPRODUCTIVE ORGANS: Absent ADDITIONAL FINDINGS: Postsurgical changes along the anterior abdominal wall with rectus muscle diasta ses and tiny fat-containing ventral hernia. SKELETAL SYSTEM: No significant abnormality. IMPRESSION: 1. Gas within the left renal collecting system, left ureter, and urinary bladder could be related to instrumentation/reflux or potentially emphysematous pyelitis. Recommend correlation with urinalysis. 2. Nonobstructing left upper pole calculi. No ureteral calculus. 3. Additional chronic/incidental findings detailed above. Signer Name: Chu Willingham MD Signed: 12/03/2021 10:52 PM Workstation Name: [id number]
[2021-12-03 23:56] VITALS: BP 176/87
== END 2021-12-03 23:56 | disposition home or self-care (01) ==
LOC: ED 13:38
DX: N20.0 Calculus of kidney (principal); N30.90 Cystitis, unspecified without hematuria; I10 Essential (primary) hypertension; E11.9 Type 2 diabetes mellitus without complications; F17.200 Nicotine dependence, unspecified, uncomplicated; J45.909 Unspecified asthma, uncomplicated; Z91.013 Allergy to seafood; Z88.2 Allergy status to sulfonamides
CPT/HCPCS: 36415; 74176; 80053; 81001; 81025; 85025; 87076; 87086; 87186; 96365; 96375; 99284; J0696; J1885; J2270; J2405; J7030